=== PATIENT | female | born 1955 | race Caucasian/White ===

== ENCOUNTER 2020-09-26 06:42 | Observation (INO) | payer OTHER ==
--- OUTSIDE RECORDS SUMMARY | 2020-09-26 06:47 | XMS REPORT | Continuity of Care Document ---
:1955 Author Organization [facility] t Address [address] [place] [address] Care Team Providers Name Role Phone Anai AMBROCIO Primary Care Physician [phone] [place] Attending Clinician Unavailable Dulce AMBROCIO Attending Clinician Unavailable SCARLET Attending Clinician Unavailable Jean CEDEÑO Attending Clinician Unavailable SCARLET Admitting Clinician Unavailable Payers Payer Name Policy Type Policy Number Effective Date Expiration Date Santhosh Beltran Plus NA 2017 [facility] - 00:00:00 [facility] Problems Condition Condition Condition Status Onset Resolution Last Treating Co mments Source Name Details Category Date Date Treatment Clinician Date EPISTAXIS Diagnosis Active 2012-01-12 Memoria 01-11 12:05:00 l 00:00: [place] EPISTAXIS 00 Active 01/12/2012 [place] Chest pain Problem Active [facility] Dyspnea Problem Active [facility] Chronic Problem Active 2013-12-17 Chris carlos pain 02:49:54 l disorder Chronic Alessandra nn pain disorder Active Problem 12/17/2013 [facility] Primary BMI less Problem Active 2013-12-17 Mem oria than 02:49:54 l 19,adult BMI less Herm angel than 19,adult Active Problem 12/17/2013 [facility] Primary Nausea and Problem Active 2013-12-17 M emoria vomiting 02:49:54 l Nausea [place] and vomiting Active Problem 12/17/2013 [facility] Primary Depression Problem Active 2013-12-17 M emoria 02:49:54 l Andrea Depression Active Problem 12/17/2013 [facility] Primary Underweigh Problem Active 2013-12-17 M emoria t 02:49:54 l Andrea Underweigh t Active Problem 12/17/2013 [facility] Primary Weight Problem Active 2013-12-17 Memor ia loss, 02:49:54 l non-intent Weight Herm angel ional loss, non-intent ional Active Problem 12/17/2013 [facility] Primary Shortness Problem Active 2013-12-17 Me moria of breath 02:49:54 l [place] Shortness of breath Active Problem 12/17/2013 [facility] Primary Chest pain Problem Active 2013-12-17 M emoria 02:49:54 l Chest [place] pain Active Problem 12/17/2013 [facility] Primary Allergies, Adverse Reactions, Alerts Allergy Allergy Status Severity Reaction(s) Onset Inactive Treating Comm ents Source Name Type Date Date Clinician No Known DA Active U [facility] Allergie 7-24 Clear s 00:00: Betancourt 00 [facility] No Known DA Active U [facility] Allergie 4-24 Clear s 00:00: Betancourt 00 [facility] N.K.D.A. N.K.D.A. Active Info Not Chris carlos Available 6-30 l 00:00: [place] 00 Keflex Keflex Active Memoria 1-12 l 06:00: Andrea 00 Social History Social Habit Start Date Stop Date Quantity Comments Source SexualHistory: 2013-10-25 2013-10-25 [facility] 00:00:00 00:00:00 Sex Assigned At [address] [facility] Medications Ordered Filled Start Stop Current Ordering Indication Dosage Frequency Signature Comments Components Source Medication Medication Date Date Medication? Clinician (SIG) Name Name Loratadine Loratadine 2019-0 Yes [address] [facility] 3-20 [facility] - 06:12: Patient [address] [place] [address] Benzonatate Benzonatate 2019-0 2020- No [address] [facility] (Tessalon (Tessalon 3-20 04-29 Times A L ukes - Perle) 100 Perle) 100 06:12: 00:00 Day as Patient Mg CAPSULE Mg CAPSULE 00 :00 needed for s [facility] Gufenesin Guaifenesin 2019-0 2020- No [address] [facility] /Dextrometh /Dextrometh 3-20 04-29 Hours [facility] - orphan orphan 06:12: 00:00 Patient (Mucinex Dm (Mucinex Dm 00 :00 s Er 600-30 Er 600-30 Medic al Mg Tablet) Mg Tablet) Mendel ter 1 Each 1 Each TAB.ER.12H TAB.ER.12H Clopidogrel 2013-0 Yes Regina 1 tablet Memoria Bisulfate 7-01 Will l 00:00: Albuterol 2013-0 Yes Regina 2 puffs as Memoria Sulfate HFA 6-30 Will needed l 00:00: Nitroglycer 2013-0 Yes Regina 1 tablet Memoria in 6-30 Will under the l 00:00: tongue and allow to dissolve as needed Benzonatate 2013-0 Yes Regina 1 capsule Memoria 6-16 Will as needed l 00:00: Amoxicillin 2013-0 Yes Regina 1 tablet Memoria 6-16 Will l 00:00: 00 Fluoxetine 2013-0 Yes Regina 1 capsule Memoria HCl 6-06 Will in the l 00:00: morning Hydrocodone 2013-0 Yes Regina 1 tablet Memoria -Acetaminop 6-06 Will as needed l hen 00:00: Megestrol 2013-0 Yes Regina 5 ml Memori a Acetate 6-06 Will l 00:00: 00 Promethazin 2013-0 Yes Regina 1 tablet Memoria e HCl 5-29 Will l 00:00: 00 Fluoxetine 2013-0 Yes Regina 1 capsule Memoria HCl 5-28 Will in the l 00:00: morning tramadol 2013-0 Yes Regina 1po Memoria 5-28 Will l 00:00: Quetiapine 2013-0 Yes Regina 1 tablet M emoria Fumarate 5-28 Will at bedtime l 00:00: Andrea 00 Milnacipran Yes Regina 2 tablets Memoria HCl 5-28 Will l 00:00: Citalopram Yes Regina 1 tablet M emoria Hydrobromid 5-28 Will l e 00:00: Naproxen Yes Regina as Memoria Sodium 5-28 Will directed l 00:00: Meloxicam Yes Regina 1 tablet Me moria 5-28 Will l 00:00: Ondansetron Yes Regina as Chris carlos HCl 5-28 Will directed l 00:00: Tizanidine Yes Regina 1 tablet M emoria HCl 5-28 Iwll as needed l 00:00: Fluoxetine Yes Regina 1 capsule Memoria HCl 5-05 Will in the l 00:00: morning Ativan No 1 mg, Memoria 01-11 Lalit Route: IM, l 18:41: ONCE, Dosing Weight 42.727, kg, Priority: STAT, Start date: 01/12/12 13:41:00, Stop date: 01/12/12 13:41:00 Xanax 0.25 No 0.25 mg, Memoria mg oral 01-11 Route: PO, l tablet 18:32: Drug form: Alessandra TAB, ONCE, Dosing Weight 42.727, kg, Priority: STAT, Start date: 01/12/12 13:32:00, Stop date: 01/12/12 13:32:00 Alprazolam Alprazolam Yes Every [address] [facility] [facility] (Xanax) (Xanax) Hours for Luke s - 0.25 Mg 0.25 Mg Anxiety Patien t TABLET TABLET [facility] Aspirin Aspirin Yes Daily [facility] (Aspir 81) (Aspir 81) Jeffry es - 81 Mg 81 Mg Patient TABLET. TABLET. [facility] Duloxetine Duloxetine Yes [address] Hcl Hcl [facility] - (Cymbalta) (Cymbalta) Pat ient 30 Mg 30 Mg s CAPSULE. CAPSULE. [facility] Famotidine Famotidine Yes [address] [facility] (Pepcid) 20 (Pepcid) 20 Day as [facility] - Mg TABLET Mg TABLET needed for Patient [facility] Gabapentin Gabapentin Yes [address] [facility] for Pain [facility] - Patient [facility] Losartan Losartan Yes [address] Potassium Potassium [facility] - Patient [facility] Mirtazapine Mirtazapine Yes [address] [facility] [facility] - Patient s [facility] Trazodone Trazodone Yes [address] [facility] - Depression Patient [facility] Ferrous Ferrous 2019- No [facility] Sulfate Sulfate 08-24 [facility] - 00:00 Patient :00 [facility] Pantoprazol Pantoprazol 2019- No [facility] Sodium e Sodium 08-24 [facility] - (Protonix) (Protonix) 00:00 Pa tient 40 Mg 40 Mg :00 s TABLET. TABLET. [facility] Buspirone Buspirone 2018- No [address] [facility] Hcl Hcl 07-16 Day [facility] - 00:00 Patient :00 [facility] Cyproheptad Cyproheptad 2019- No 4 1-[address] ine Hcl ine Hcl 07-16 [facility] - 00:00 Patient :00 [facility] Zolpidem Zolpidem 2018- No [address] Tartrate Tartrate 07-16 [facility] - (Ambien) 10 (Ambien) 10 00:00 Patient Mg TABLET Mg TABLET :00 [facility] Levofloxaci Levofloxaci 2014- No [facility] n 11-22 [facility] - (Levaquin) (Levaquin) 00:00 Pa tient 500 Mg 500 Mg :00 s TABLET TABLET [facility] Vancomycin Vancomycin 2011- No [facility] 01-06 [facility] - 00:00 Patient :00 [facility] Vital Signs Vital Name Observation Time Observation Value Comments Source Body Temperature 2019-08-27 12:00:00 96.6 [degF] [facility] Weight 2019-08-27 06:28:00 141.40 [lb_av] [facility] BMI (Body Mass Index) 2019-08-27 06:28:00 28.6 kg/m2 [facility] Weight 2013-10-25 19:00:00 [facility] [place] Height 2013-10-25 19:00:00 [facility] Temperature Oral (F) 2013-10-25 19:00:00 98.6 F [facility] [place] Heart Rate 2013-10-25 19:00:00 [facility] [place] Diastolic (mm Hg) 2013-10-25 19:00:00 Mem orial Andrea Systolic (mm Hg) 2013-10-25 19:00:00 Chris rial [place] Weight 2013-10-01 14:15:00 [facility] [place] Height 2013-10-01 14:15:00 [facility] Temperature Oral (F) 2013-10-01 14:15:00 98.6 F [facility] [place] Heart Rate 2013-10-01 14:15:00 [facility] Diastolic (mm Hg) 2013-10-01 14:15:00 Mem orial Andrea Systolic (mm Hg) 2013-10-01 14:15:00 Chris rial [place] Weight 2013-09-22 18:00:00 [facility] [place] Height 2013-09-22 18:00:00 [facility] Temperature Oral (F) 2013-09-22 18:00:00 98.4 F [facility] Heart Rate 2013-09-22 18:00:00 [facility] Diastolic (mm Hg) 2013-09-22 18:00:00 Mem orial Andrea Systolic (mm Hg) 2013-09-22 18:00:00 Chris rial [place] Weight 2012-01-12 16:23:00 [facility] Height 2012-01-12 16:23:00 149.86 cm [facility] Procedures Procedure Date / Time Performed Performing Clinician [facility] e Computed tomography of 2019-08-25 00:00:[facility] Patients [facility] Plan of Care Planned Activity Planned Date Details Comments Source Instructions Chest Pain - Chest Wall [facility] Instructions Dyspnea [facility] Encounters Start End Encounter Admission Attending Care Care Encounter Source Date/Time Date/Time Type Type Clinicians Facility Department ID 2020-09-02 [id number] [place] 03[facility]57[facility]11 [facility] 2019-08-25 2019-08-27 Discharged 1 [id number] 15:40:00 13:36:00 Inpatient BESSY Patients 27 [place] es - (obs) [facility] 2019-07-14 2019-07-16 Discharged [address] [facility] [id number] 16:25:00 10:50:00 Inpatient BESSY Patients 19 [place] es - (obs) [facility] 2018-07-16 2018-07-16 Departed [facility] [id number] 11:44:00 15:48:00 Emergency 96 Luke s - Room Patient [facility] 2017-11-22 2017-11-22 Departed 1 DAVIDSON [facility] [id number] 15:48:00 20:25:00 Emergency LREOY 73 Luke s - Room Patient [facility] 2013-11-23 2013-11-23 Outpatient [facility] [id number] [facility]inic 09:08:00 09:08:00 [facility] Primary alWork s Primary Care Care 2013-10-25 2013-10-25 Outpatient [facility] [id number] [facility]Clinic 14:00:00 14:00:00 [facility] Primary alWork s Primary Care Care 2013-10-11 2013-10-11 Outpatient [facility] [id number] eClinic 11:08:00 11:08:00 [facility] Primary alWork s Primary Care Care 2013-10-01 2013-10-01 Outpatient [facility] [id number] eClinic 09:15:00 09:15:00 [facility] Primary alWork s Primary Care Care 2013-09-23 2013-09-23 Outpatient [facility] [id number] eClinic 10:01:00 10:01:00 [facility] Primary alWork s Primary Care Care 2013-09-22 2013-09-22 Outpatient [facility] [id number] [facility]Clinic 13:00:00 13:00:00 [facility] Primary alWork s Primary Care Care Results Test Description Test Time Test Comments Results Result Comments Source STREPTOCOCCUS PCR SCREEN 2020-02-04 07:55:00 Test Item Value Reference Range Interpretation Comme nts STREPTOCOCCUS DYSGALACTIAE (test code = STREPGC) NEGATIVE FOR G/C N EGATIVE STREPA MOLECULAR (test code = STREPAMOL) NEGATIVE FOR GRP A NEGATIV E - XR CHEST 1 [id number] 20:50:00 Name: HAYLEY LI [facility] : 1955 Age/S:65 /F [address] [facility] Unit#:[id number] Loc: [place], [place] [address] Phys: Luis A Mcarthur MD Dis Date: PHONE #: [phone] Status: REG ER FAX #: [phone] Exam Date: 02/03/2020 Reason: Cough EXAMS: CPT CODE:[id number] XR CHEST 1 V [id number] EXAM: Chest X-ray, 1 view; CLINICAL HISTORY: Cough and sore throat, shortness of breath; FINDINGS: The lungs are clear, no infiltrates, no edema; no effusions; no pneumothorax;normal cardiomediastinal silhouette. Status post anterior fusion of the lower cervical spine. IMPRESSION: Normal chest x-ray. Location code: at 2049 Reported and signed by: Woody Mccormick M.D. CC: Luis A Mcarthur MD; Morgan Barrios MD Technologist: URVASHI ESPINOSA RT(R),RDMS,CT Trnsct Data: 02/03/2020 (2049) [email or web address] Orig Print D/T: S: 02/03/2020 (2052) PAGE 1 Signed ReportURINALYSIS [id number] 20:26:00 Test Item Value Reference Range Interpretation Comments UA COLOR (test code = LIGHT YELLOW YELLOW COLU) UA APPEARANCE (test code CLEAR CLEAR = APPU) UA GLUCOSE DIPSTICK (test norm mg/dL NEGATIVE code = DGLUU) UA BILIRUBIN DIPSTICK NEGATIVE mg/dL NEGATIVE (test code = BILU) UA KETONE DIPSTICK (test neg mg/dL NEGATIVE code = KETU) UA SPECIFIC GRAVITY (test 1.010 1.001-1.035 code = SGU) UA BLOOD DIPSTICK (test neg Óscar/uL NEGATIVE code = SAGAR) UA PH DIPSTICK (test code 8.0 5.0-8.0 = FLORA) UA PROTEIN DIPSTICK (test neg mg/dL Neg-15 code = PROU) UA UROBILINIOGEN DIPSTICK norm mg/dL 0.0-0.2 (test code = URO) UA NITRITE DIPSTICK (test NEGATIVE NEGATIVE code = MAGGIE) UA LEUKOCYTE ESTERASE 25 Bobby/uL (Trace) uL NEGATIVE A DIPSTICK (test code = LEUU) UA WBC (test code = WBCU) 0-5 per HPF 0-5 UA RBC (test code = RBCU) NONE SEEN per HPF 0-5 UA EPITHELIAL CELLS (test Few (2-5/hpf) per Few code = EPIU) HPF UA BACTERIA (test code = FEW per HPF NONE BACU) Urine Source? Clean CatchURINALYSIS [id number] 20:23:00 Test Item Value Reference Range Interpretation Comments UA COLOR (test code = LIGHT YELLOW YELLOW COLU) UA APPEARANCE (test code CLEAR CLEAR = APPU) UA GLUCOSE DIPSTICK (test norm mg/dL NEGATIVE code = DGLUU) UA BILIRUBIN DIPSTICK NEGATIVE mg/dL NEGATIVE (test code = BILU) UA KETONE DIPSTICK (test neg mg/dL NEGATIVE code = KETU) UA SPECIFIC GRAVITY (test 1.010 1.001-1.035 code = SGU) UA BLOOD DIPSTICK (test neg Óscar/uL NEGATIVE code = SAGAR) UA PH DIPSTICK (test code 8.0 5.0-8.0 = FLORA) UA PROTEIN DIPSTICK (test neg mg/dL Neg-15 code = PROU) UA UROBILINIOGEN DIPSTICK norm mg/dL 0.0-0.2 (test code = URO) UA NITRITE DIPSTICK (test NEGATIVE NEGATIVE code = MAGGIE) UA LEUKOCYTE ESTERASE 25 Bobby/uL (Trace) uL NEGATIVE A DIPSTICK (test code = LEUU) UA WBC (test code = WBCU) per HPF 0-5 UA RBC (test code = RBCU) per HPF 0-5 UA EPITHELIAL CELLS (test per HPF Few code = EPIU) UA BACTERIA (test code = per HPF NONE BACU) Urine Source? Clean CatchNovel Coronavirus 2019 [id number] 08:01:00 Test Item Value Reference Range Interpretation Comments Novel Coronavirus 2019 nCoV (test NEGATIVE code = COVID19) Does patient have the clinical criteria consistent with COVID-19? YIs the patient going to be discharged home? Y- CT ABD PELVIS [id number] 12:27:00 [facility] 1955 Age/S: 64 / F [facility] Unit #: [id number] Loc: [place] [address] Phys: Jayme Kimball MD Acct: [id number] Dis Date: Status: REG ER PHONE #: [phone] Exam Date: 11/23/2019 1205 FAX #: [phone] Reason: upper abdominal discomfort and distension EXAMS: CPTCODE: [id number] CT ABD PELVIS W/CONT [id number] REASON FOR EXAM: upper abdominal discomfort and distension EXAM ORDER DATE: 11/23/2019 11:03 AM Ordering M.DMiko: Jayme Kimball MD PROCEDURE: Axial CT images were acquired through the abdomen/pelvis at 5 mm intervals. Sagittal and coronal reformatted images were generated. Automated exposure control was utilized for this reduction. Phasesof contrast: venous and delayed COMPARISON: CT of the abdomen and pelvis August 22, 2018 FINDINGS: Visualized thorax: Normal Hepatobiliary system: Prior cholecystectomy with prominence of the common bile duct. Hepatic parenchyma is within normal limits Pancreas: Normal Spleen: Normal Adrenal glands: Normal Genitourinary system: Prior hysterectomy. Otherwise normal Gastrointestinal tract and appendix: Mild diverticulosis of the sigmoid colon without diverticulitis. Stomach and small bowel are within normal limits Abdominal vascular structures:Normal Peritoneum and retroperitoneum: No free fluid or free air. No omental ormesenteric masses. No abnormal lymph nodes. Musculoskeletal structures and abdominal wall: Disc degeneration and facet degeneration is seen at L5-S1 IMPRESSION: No acute intra-abdominal process PAGE 1 Signed Report (CONTINUED) Name: HAYLEY LI [facility] : 1955 Age/S: 64 / F [facility] Unit #: [id number] Loc: [place] [address] Phys: Jayme Kimball MD Acct: [id number] Dis Date: Status: REG ER PHONE #: [phone] Exam Date: 11/23/2019 1205 FAX #: [phone] Reason: upper abdominal discomfort and distension EXAMS: CPT CODE: [id number] CT ABD PELVIS W/CONT [id number] <Continued> Location: [facility] Electronically Signed by Fish Chaudhry 11/23/2019 at 1227 Reported and signed by: Fish Abbott MD CC: Morgan Huerta MD; Jayme Kimball MD Technologist:Melinda Fuentes CTDI: DLP: Trnscb Date/Time: 11/23/2019 (1227) [email or web address] Orig Print D/T: S: 11/23/2019 (4528) PAGE 2 Signed ReportURINALYSIS [id number] 11:41:00 Test Item Value Reference Range Interpretation Comments UA COLOR (test code = YELLOW YELLOW COLU) UA APPEARANCE (test code CLEAR CLEAR = APPU) UA GLUCOSE DIPSTICK (test norm mg/dL NEGATIVE code = DGLUU) UA BILIRUBIN DIPSTICK NEGATIVE mg/dL NEGATIVE (test code = BILU) UA KETONE DIPSTICK (test neg mg/dL NEGATIVE code = KETU) UA SPECIFIC GRAVITY (test 1.015 1.001-1.035 code = SGU) UA BLOOD DIPSTICK (test neg Óscar/uL NEGATIVE code = SAGAR) UA PH DIPSTICK (test code 6.5 5.0-8.0 = FLORA) UA PROTEIN DIPSTICK (test neg mg/dL Neg-15 code = PROU) UA UROBILINIOGEN DIPSTICK norm mg/dL 0.0-0.2 (test code = URO) UA NITRITE DIPSTICK (test NEGATIVE NEGATIVE code = MAGGIE) UA LEUKOCYTE ESTERASE 500 Bobby/uL (3+) uL NEGATIVE A DIPSTICK (test code = LEUU) UA WBC (test code = WBCU) 3-5 per HPF 0-5 UA RBC (test code = RBCU) 0-3 per HPF 0-5 UA EPITHELIAL CELLS (test Few (2-5/hpf) per Few code = EPIU) HPF UA BACTERIA (test code = MODERATE per HPF NONE A BACU) Urine Source? Clean CatchBASIC METABOLIC [id number] 11:31:00 Test Item Value Reference Range Interpretation Comments SODIUM (test code = 144 mmol/L 136-145 N NA) POTASSIUM (test code = 3.7 mmol/L 3.5-5.1 N K) CHLORIDE (test code = 109 mmol/L 101-109 N CL) CARBON DIOXIDE (test 27.3 mmol/L 21-32 N code = CO2) ANION GAP (test code = 11 mmol/L 10-20 N GAP) GLUCOSE (test code = 95 mg/dL 74-106 N GLU) BLOOD UREA NITROGEN 22 mg/dL 3-21 H (test code = BUN) GLOMERULAR FILTRATION > 60 mL/min >=60 Estima yennifer GFR by RATE (test code = GFR) using Modified MDRD formula.Chronic kidney disease is defined as [facility] er kidney damageor GFR <60 mL/min/1.73 m2 for >3 months. CREATININE (test code 0.72 mg/dL 0.55-1.3 N = CREAT) BUN/CREATININE RATIO 30.6 10-20 H (test code = BUN/CREA) CALCIUM (test code = 8.0 mg/dL 8.4-10.2 L CA) HEPATIC FUNCTION [id number] 11:31:00 Test Item Value Reference Range Interpretation Comments TOTAL PROTEIN (test 6.9 g/dL 6.5-8.4 N code = PROT) ALBUMIN (test code = 3.2 g/dL 3.4-4.8 L ALB) GLOBULIN (test code = 3.7 G/DL 1-10 N GLOB) ALBUMIN/GLOBULIN RATIO 0.86 RATIO 0.75-1.50 N (test code = A/G) BILIRUBIN TOTAL (test 0.30 mg/dL 0.0-1.0 N code = BILT) BILIRUBIN DIRECT (test 0.00 mg/dL 0.0-0.30 N code = BILD) SGOT/AST (test code = 24 U/L 6-32 N AST) SGPT/ALT (test code = 29 U/L 12-78 N Note: Change in ALT) REFERENCE RANGE due to new reagent method. ALKALINE PHOSPHATASE 159 U/L 38-126 H TOTAL (test code = ALKP) [id number] 11:31:00 Test Item Value Reference Range Interpretation Comments LIPASE (test code = LIP) 223 U/L 128-270 N [id number] 11:31:00 Test Item Value Reference Range Interpretation Comments TROPONIN-I (test code = TROPI) <0.015 ng/mL 0.00-0.056 N URINALYSIS [id number] 11:26:00 Test Item Value Reference Range Interpretation Comments UA COLOR (test code = YELLOW YELLOW COLU) UA APPEARANCE (test code = CLEAR CLEAR APPU) UA GLUCOSE DIPSTICK (test norm mg/dL NEGATIVE code = DGLUU) UA BILIRUBIN DIPSTICK NEGATIVE mg/dL NEGATIVE (test code = BILU) UA KETONE DIPSTICK (test neg mg/dL NEGATIVE code = KETU) UA SPECIFIC GRAVITY (test 1.015 1.001-1.035 code = SGU) UA BLOOD DIPSTICK (test neg Óscar/uL NEGATIVE code = SAGAR) UA PH DIPSTICK (test code 6.5 5.0-8.0 = FLORA) UA PROTEIN DIPSTICK (test neg mg/dL Neg-15 code = PROU) UA UROBILINIOGEN DIPSTICK norm mg/dL 0.0-0.2 (test code = URO) UA NITRITE DIPSTICK (test NEGATIVE NEGATIVE code = MAGGIE) UA LEUKOCYTE ESTERASE 500 Bobby/uL (3+) uL NEGATIVE A DIPSTICK (test code = LEUU) UA WBC (test code = WBCU) per HPF 0-5 UA RBC (test code = RBCU) per HPF 0-5 UA EPITHELIAL CELLS (test per HPF Few code = EPIU) UA BACTERIA (test code = per HPF NONE BACU) Urine Source? Clean CatchCBC W/O [id number] 11:13:00 Test Item Value Reference Range Interpretation Comments WHITE BLOOD CELL (test code = 7.0 K/mm3 4.5-12.5 N WBC) RED BLOOD CELL (test code = 3.85 mill/mm3 3.7-5.2 N RBC) HEMOGLOBIN (test code = HGB) 11.9 gram/dL 11.5-15.5 N HEMATOCRIT (test code = HCT) 35.5 % 36.0-46.0 L MEAN CELL VOLUME (test code = 92.2 fL 80-98 N MCV) MEAN CELL HGB (test code = MCH) 30.9 picogram 27.0-33.0 N MEAN CELL HGB CONCETRATION 33.5 gram/dL 33.0-36.0 N (test code = MCHC) RED CELL DISTRIBUTION WIDTH 12.7 % 11.6-16.2 N (test code = RDW) RED CELL DISTRIBUTION WIDTH SD 43.1 fL 37.0-51.0 N (test code = RDW-SD) PLATELET COUNT (test code = 227 K/mm3 150-450 N PLT) MEAN PLATELET VOLUME (test code 9.5 fL 6.7-11.0 N = MPV) [id number] 17:51:00 Test Item Value Reference Range Interpretation Comments TROPONIN-I (test code = TROPI) <0.015 ng/mL 0-0.045 N BASIC METABOLIC [id number] 17:50:00 Test Item Value Reference Range Interpretation Comments SODIUM (test code = 146 mmol/L 136-145 H NA) POTASSIUM (test code = 4.1 mmol/L 3.5-5.1 N K) CHLORIDE (test code = 111 mmol/L 101-109 H CL) CARBON DIOXIDE (test 28.3 mmol/L 21-32 N code = CO2) ANION GAP (test code = 11 mmol/L 10-20 N GAP) GLUCOSE (test code = 101 mg/dL 74-106 N GLU) BLOOD UREA NITROGEN 26 mg/dL 3-21 H (test code = BUN) GLOMERULAR FILTRATION > 60 mL/min >=60 Estima yennifer GFR by RATE (test code = GFR) using Modified MDRD formula.Chronic kidney disease is defined as [facility] kidney damageor GFR <60 mL/min/1.73 m2 for >3 months. CREATININE (test code 0.71 mg/dL 0.55-1.3 N = CREAT) BUN/CREATININE RATIO 36.6 10-20 H (test code = BUN/CREA) CALCIUM (test code = 7.9 mg/dL 8.4-10.2 L CA) HEPATIC FUNCTION [id number] 17:50:00 Test Item Value Reference Range Interpretation Comments TOTAL PROTEIN (test 6.4 g/dL 6.5-8.4 L code = PROT) ALBUMIN (test code = 3.0 g/dL 3.4-4.8 L ALB) GLOBULIN (test code = 3.4 G/DL 1-10 N GLOB) ALBUMIN/GLOBULIN RATIO 0.88 RATIO 0.75-1.50 N (test code = A/G) BILIRUBIN TOTAL (test 0.20 mg/dL 0.0-1.0 N code = BILT) BILIRUBIN DIRECT (test 0.00 mg/dL 0.0-0.30 N code = BILD) SGOT/AST (test code = 26 U/L 6-32 N AST) SGPT/ALT (test code = 27 U/L 12-78 N Note: Change in ALT) REFERENCE RANGE due to new reagent method. ALKALINE PHOSPHATASE 118 U/L 38-126 N TOTAL (test code = ALKP) [id number] 17:50:00 Test Item Value Reference Range Interpretation Comments LIPASE (test code = LIP) 155 U/L 128-270 N URINALYSIS [id number] 17:45:00 Test Item Value Reference Range Interpretation Comments UA COLOR (test code = YELLOW YELLOW COLU) UA APPEARANCE (test code SLIGHT CLOUDY CLEAR A = APPU) UA GLUCOSE DIPSTICK (test norm mg/dL NEGATIVE code = DGLUU) UA BILIRUBIN DIPSTICK NEGATIVE mg/dL NEGATIVE (test code = BILU) UA KETONE DIPSTICK (test neg mg/dL NEGATIVE code = KETU) UA SPECIFIC GRAVITY (test 1.005 1.001-1.035 code = SGU) UA BLOOD DIPSTICK (test neg Óscar/uL NEGATIVE code = SAGAR) UA PH DIPSTICK (test code 8.0 5.0-8.0 = FLORA) UA PROTEIN DIPSTICK (test neg mg/dL Neg-15 code = PROU) UA UROBILINIOGEN DIPSTICK norm mg/dL 0.0-0.2 (test code = URO) UA NITRITE DIPSTICK (test NEGATIVE NEGATIVE code = MAGGIE) UA LEUKOCYTE ESTERASE 500 Bobby/uL (3+) uL NEGATIVE A DIPSTICK (test code = LEUU) UA WBC (test code = WBCU) 40-50 per HPF 0-5 A UA RBC (test code = RBCU) NONE SEEN per HPF 0-5 UA EPITHELIAL CELLS (test Rare (0-1/hpf) per Few code = EPIU) HPF UA BACTERIA (test code = TRACE per HPF NONE BACU) UA MUCUS (test code = FEW per LPF NONE-FEW MUCU) Urine Source? Clean CatchURINALYSIS [id number] 17:39:00 Test Item Value Reference Range Interpretation Comments UA COLOR (test code = YELLOW YELLOW COLU) UA APPEARANCE (test code = SLIGHT CLOUDY CLEAR A APPU) UA GLUCOSE DIPSTICK (test norm mg/dL NEGATIVE code = DGLUU) UA BILIRUBIN DIPSTICK NEGATIVE mg/dL NEGATIVE (test code = BILU) UA KETONE DIPSTICK (test neg mg/dL NEGATIVE code = KETU) UA SPECIFIC GRAVITY (test 1.005 1.001-1.035 code = SGU) UA BLOOD DIPSTICK (test neg Óscar/uL NEGATIVE code = SAGAR) UA PH DIPSTICK (test code 8.0 5.0-8.0 = FLORA) UA PROTEIN DIPSTICK (test neg mg/dL Neg-15 code = PROU) UA UROBILINIOGEN DIPSTICK norm mg/dL 0.0-0.2 (test code = URO) UA NITRITE DIPSTICK (test NEGATIVE NEGATIVE code = MAGGIE) UA LEUKOCYTE ESTERASE 500 Bobby/uL (3+) uL NEGATIVE A DIPSTICK (test code = LEUU) UA WBC (test code = WBCU) per HPF 0-5 UA RBC (test code = RBCU) per HPF 0-5 UA EPITHELIAL CELLS (test per HPF Few code = EPIU) UA BACTERIA (test code = per HPF NONE BACU) Urine Source? Clean CatchB-TYPE NATRIURETIC [id number] 17:39:00 Test Item Value Reference Range Interpretation Comments B-TYPE NATRIURETIC PEPTIDE (test 41.0 pg/mL 0-100 N code = BNP) - XR ABDOMEN [id number] 17:39:00 Name: HAYLEY LI [facility] : 1955 Age/S:64 /F [address] [facility] Unit#:[id number] Loc: [place] [address] Phys: Jayme Kimball MD Dis Date: PHONE #: [phone] Status: REG ER FAX #: [phone] Exam Date: 11/19/2019 Reason: diarrhea EXAMS: CPT CODE:[id number] XR ABDOMEN 2V 96414 HISTORY: Abdominal pain and diarrhea. COMPARISON: Chest x-ray from April 10, [address] scan from August 22, 2018. Location: [facility]. Single view chest: No acute infiltrates, effusion or congestion is noted. Lung scarring. The cardiac and mediastinal silhoue tte are within normal limits. IMPRESSION: No acute infiltrates, effusion or congestion. 2 view abdomen: No free air. No bowel obstruction. Patient is post cholecystectomy. Scattered fecal material. No pathologic constipation is. DJD of the lower lumbar spine. IMPRESSION: No free air or obstruction. at 1739 Reported and signed by: Reilly Khan M.D. CC: Jayme Kimball MD; Alphonse Rg Technologist: RAYO REDDING, RT(R),CT Trnscrpt Data: 11/19/2019 (1731) t.SDR.TH4 Orig Print D/T: S: 11/19/2019 (1352) PAGE 1 Signed Report- XR CHEST 1 [id number] 17:39:00 Name: HAYLEY LI [facility] : 1955 Age/S:64 /F [address] [facility] Unit#:[id number] Loc: [place] [address] Phys: Jayme Kimball MD Dis Date: PHONE #: [phone] Status: REG ER FAX #: [phone] Exam Date: 11/19/2019 Reason: sob EXAMS: CPT CODE:[id number] XR CHEST 1 V 00854 HISTORY: Abdominal pain and diarrhea. COMPARISON: Chest x-ray from April 10, [address] scan from August 22, 2018. Location: [facility]. Single view chest: No acute infiltrates, effusion or congestion is noted. Lung scarring. The cardiac and mediastinal silhouette are within normal limits. IMPRESSION: No acute infiltrates, effusion or congestion. 2 view abdomen: No free air. No bowel obs truction. Patient is post cholecystectomy. Scattered fecal material. No pathologic constipation is. DJD of the lower lumbar spine. IMPRESSION: No free air or obstruction. at 173 Reported and signed by: Reilly Khan M.D. CC: Jayme Kimball MD; Alphonse Rg Technologist: RAYO REDDING, RT(R),CT Trnscrpt Data: 11/19/2019 (9373) t.FRANSICO.TH4 Orig Print D/T: S: 11/19/2019 (2347) PAGE 1 Signed ReportBASIC METABOLIC [id number] 17:36:00 Test Item Value Reference Range Interpretation Comments SODIUM (test code = 146 mmol/L 136-145 H NA) POTASSIUM (test code = 4.1 mmol/L 3.5-5.1 N K) CHLORIDE (test code = 111 mmol/L 101-109 H CL) CARBON DIOXIDE (test 28.3 mmol/L 21-32 N code = CO2) ANION GAP (test code = 11 mmol/L 10-20 N GAP) GLUCOSE (test code = 101 mg/dL 74-106 N GLU) BLOOD UREA NITROGEN 26 mg/dL 3-21 H (test code = BUN) GLOMERULAR FILTRATION > 60 mL/min >=60 Estima yennifer GFR by RATE (test code = GFR) using Modified MDRD formula.Chronic kidney disease is defined as [facility] er kidney damageor GFR <60 mL/min/1.73 m2 for >3 months. CREATININE (test code 0.71 mg/dL 0.55-1.3 N = CREAT) BUN/CREATININE RATIO 36.6 10-20 H (test code = BUN/CREA) CALCIUM (test code = 7.9 mg/dL 8.4-10.2 L CA) HEPATIC FUNCTION [id number] 17:36:00 Test Item Value Reference Range Interpretation Comments TOTAL PROTEIN (test code = PROT) gram/dL 6.4-8.2 ALBUMIN (test code = ALB) g/dL 3.4-5.0 GLOBULIN (test code = GLOB) g/dL 2.7-4.2 ALBUMIN/GLOBULIN RATIO (test code = 0.75-1.50 A/G) BILIRUBIN TOTAL (test code = BILT) mg/dL 0.2-1.2 BILIRUBIN DIRECT (test code = BILD) mg/dL 0.0-0.20 SGOT/AST (test code = AST) IUnit/L 15-37 SGPT/ALT (test code = ALT) U/L 10-69 ALKALINE PHOSPHATASE TOTAL (test IUnit/L 45-117 code = ALKP) [id number] 17:36:00 Test Item Value Reference Range Interpretation Comments LIPASE (test code = LIP) Unit/L 144-286 CBC W/O [id number] 17:23:00 Test Item Value Reference Range Interpretation Comments WHITE BLOOD CELL (test code = 9.8 K/mm3 4.5-12.5 N WBC) RED BLOOD CELL (test code = 4.02 mill/mm3 3.7-5.2 N RBC) HEMOGLOBIN (test code = HGB) 12.2 gram/dL 11.5-15.5 N HEMATOCRIT (test code = HCT) 37.6 % 36.0-46.0 N MEAN CELL VOLUME (test code = 93.5 fL 80-98 N MCV) MEAN CELL HGB (test code = MCH) 30.3 picogram 27.0-33.0 N MEAN CELL HGB CONCETRATION 32.4 gram/dL 33.0-36.0 L (test code = MCHC) RED CELL DISTRIBUTION WIDTH 12.9 % 11.6-16.2 N (test code = RDW) RED CELL DISTRIBUTION WIDTH SD 45.0 fL 37.0-51.0 N (test code = RDW-SD) PLATELET COUNT (test code = 253 K/mm3 150-450 N PLT) MEAN PLATELET VOLUME (test code 9.2 fL 6.7-11.0 N = MPV) FOOT LEFT AP [id number] 10:54:00 [place] [address] Patient Name: HAYLEY LI MR #: [id number] : 1955 Age/Sex: 64/F Req #: [id number] Adm Physician: Ordered by: LITO AMBROCIO M.D. Report #: [id number] Location: [facility] Room/Bed: Procedure: [id number] DX/FOOTLEFT AP LAT Exam Date: 09/24/19 Exam Time: 1030 REPORT STATUS: Signed EXAMINATION: FOOT LEFT AP LAT INDICATION:Toe injury COMPARISON: None FINDINGS: No acute fracture or dislocation. Alignment is anatomic. No substantial degenerative change. Soft tissues appear unremarkable. IMPRESSION: No acute osseous injury. Signed by: Rosy Mccarthy MD on 09/24/2019 10:54 AM Dictated By: ROSY MCCARTHY MD 105 Transcribed By: KEY on 09/24/19 1054 COPY TO: LITO AMBROCIO M.D.Serum or plasma sodium measurement (moles/volume)2019-08-27 05:23:00 Test Item Value Reference Range Interpretation Comments Sodium Level (test code = 2951-2) 140 136-145 [facility] potassium [facility] (moles/volume)2019-08-27 05:23:00 Test Item Value Reference Range Interpretation Comments Potassium Level (test code = 2823-3) 4.2 3.5-5.1 [facility] chloride measurement (moles/volume)2019-08-27 05:23:00 Test Item Value Reference Range Interpretation Comments Chloride Level (test code = 2075-0) 110 98-107 [facility] carbon dioxide, total measurement (moles/volume)2019-08-27 05:23:00 Test Item Value Reference Range Interpretation Comments Carbon Dioxide Level (test code = 8-9) [facility] anion [id number] 05:23:00 Test Item Value Reference Range Interpretation Comments Anion Gap (test code = 80537-9) 10.2 8-16 [facility] urea nitrogen measurement (mass/volume)2019-08-27 05:23:00 Test Item Value Reference Range Interpretation Comments Blood Urea Nitrogen (test code = 23 7- 3094-0) [facility] creatinine measurement (mass/volume)2019-08-27 05:23:00 Test Item Value Reference Range Interpretation Comments Creatinine (test code = 2160-0) 0.69 0.57-1.11 [facility] urea nitrogen/creatinine mass [id number] 05:23:00 Test Item Value Reference Range Interpretation Comments BUN/Creatinine Ratio (test code = 33 6-25 3097-3) [facility] CenterEstimated glomerular filtration rate (GFR) yuxetlquvayri1538-88-82 05:23:00 Test Item Value Reference Range Interpretation Comments Estimat Glomerular Filtration Rate > 60 >60 (test code = 300829259) Ranges were taken from the National Kidney Disease Education Program and the National Kidney Foundation literature.Reference ranges:60 or greater: Hgqotz49- 59 (for 3 consecutive months): Chronic kidneydisease 15 or less: Kidney failure [facility] CenterGlucose wqtgqyiighg6487-19-58 05:23:00 Test Item Value Reference Range Interpretation Comments Glucose Level (test code = LMN5817) 97 74-118 [facility] calcium measurement (mass/volume)2019-08-27 05:23:00 Test Item Value Reference Range Interpretation Comments Calcium Level (test code = 02515-0) 8.8 8.4-10.2 [facility] plasma creatine kinase measurement (enzymatic activity/volume)2019-08-26 13:50:00 Test Item Value Reference Range Interpretation Comments Creatine Kinase (test code = 2157-6) 55 29-168 [facility] plasma creatine kinase MB measurement (mass/volume)2019-08-26 13:50:00 Test Item Value Reference Range Interpretation Comments Creatine Kinase MB (test code = 0.80 0-5.0 86951-4) [facility] CenterTroponin I measurement by highly sensitive enzyme ddekjziassa7393-48-09 13:50:00 Test Item Value Reference Range Interpretation Comments Troponin I (test code = 65542-6) < 0.001 0-0.300 [facility] total cholesterol/cholesterol in HDL mass swepg5281-78-97 05:50:00 Test Item Value Reference Range Interpretation Comments Cholesterol/HDL Ratio (test code = 2.6 3.0-3.6 9830-1) [facility] CenterBlood leukocytes automated count (number/volume)2019-08-26 05:50:00 Test Item Value Reference Range Interpretation Comments White Blood Count (test code = 6690-2) 5.74 4.8-10.8 [facility] CenterBlood erythrocytes automated count (number/volume)2019-08-26 05:50:00 Test Item Value Reference Range Interpretation Comments Red Blood Count (test code = 789-8) 4.09 3.6-5.1 [facility] CenterBlood hemoglobin measurement (moles/volume)2019-08-26 05:50:00 Test Item Value Reference Range Interpretation Comments Hemoglobin (test code = 90297-7) 12.8 12.0-16.0 [facility] CenterAutomated blood hematocrit (volume fraction)2019-08-26 05:50:00 Test Item Value Reference Range Interpretation Comments Hematocrit (test code = 4544-3) 37.2 34.2-44.1 [facility] CenterAutomated erythrocyte mean corpuscular uqqbbg6673-28-90 05:50:00 Test Item Value Reference Range Interpretation Comments Mean Corpuscular Volume (test code = 91.0 81-99 787-2) [facility] CenterAutomated erythrocyte mean corpuscular hemoglobin (mass per erythrocyte)2019-08-26 05:50:00 Test Item Value Reference Range Interpretation Comments Mean Corpuscular Hemoglobin (test code 31.3 28-32 = 785-6) [facility] CenterAutomated erythrocyte mean corpuscular hemoglobin concentration measurement (mass/volume)2019-08-26 05:50:00 Test Item Value Reference Range Interpretation Comments Mean Corpuscular Hemoglobin Concent 34.4 31-35 (test code = 786-4) [facility] CenterRDW DmxPk-Yul7722-91-30 05:50:00 Test Item Value Reference Range Interpretation Comments Red Cell Distribution Width (test code 13.0 11.7-14.4 = 26294-1) [facility] CenterAutomated blood platelet count (count/volume)2019-08-26 05:50:00 Test Item Value Reference Range Interpretation Comments Platelet Count (test code = 777-3) 214 140-360 [facility] CenterAutomated blood segmented neutrophil count as percentage of total pifgxqdukn9883-43-71 05:50:00 Test Item Value Reference Range Interpretation Comments Neutrophils (%) (Auto) (test code = 45.9 38.7-80.0 26847-5) [facility] CenterAutomated blood lymphocyte count as percentage ot total vfutgzfpji7659-19-27 05:50:00 Test Item Value Reference Range Interpretation Comments Lymphocytes (%) (Auto) (test code = 38.9 18.0-39.1 736-9) [facility] CenterAutomated blood monocyte count as percentage of total oldyyviqlk9576-67-23 05:50:00 Test Item Value Reference Range Interpretation Comments Monocytes (%) (Auto) (test code = 10.6 4.4-11.3 5905-5) [facility] CenterAutomated blood eosinophil count as percentage of total tvpzlfqlzm4904-78-57 05:50:00 Test Item Value Reference Range Interpretation Comments Eosinophils (%) (Auto) (test code = 3.1 0.0-6.0 713-8) [facility] CenterAutomated blood basophil count as percentage of total uwazikkpho9104-73-68 05:50:00 Test Item Value Reference Range Interpretation Comments Basophils (%) (Auto) (test code = 1.2 0.0-1.0 706-2) [facility] CenterFluoroscopic procedure less than one hour veswdhnx5741-41-01 05:50:00 Test Item Value Reference Range Interpretation Comments IM GRANULOCYTES % (test code = IM 0.3 0.0-1.0 GRANULOCYTES %) [facility] CenterAutomated blood neutrophil count 2019-08-26 05:50:00 Test Item Value Reference Range Interpretation Comments Neutrophils # (Auto) (test code = 2.6 2.1-6.9 751-8) [facility] CenterBlood lymphocytes count (number/volume) 2019-08-26 05:50:00 Test Item Value Reference Range Interpretation Comments Lymphocytes # (Auto) (test code = 2.2 1.0-3.2 86137-8) [facility] CenterBlood monocytes automated count (number/volume)2019-08-26 05:50:00 Test Item Value Reference Range Interpretation Comments Monocytes # (Auto) (test code = 742-7) 0.6 0.2-0.8 [facility] CenterAutomated blood eosinophil count 2019-08-26 05:50:00 Test Item Value Reference Range Interpretation Comments Eosinophils # (Auto) (test code = 0.2 0.0-0.4 711-2) [facility] CenterAutomated blood basophil count (count/volume)2019-08-26 05:50:00 Test Item Value Reference Range Interpretation Comments Basophils # (Auto) (test code = 704-7) 0.1 0.0-0.1 [facility] CenterFluoroscopic procedure less than one hour yppdvlka6781-08-58 05:50:00 Test Item Value Reference Range Interpretation Comments Absolute Immature Granulocyte (auto 0.02 0-0.1 (test code = Absolute Immature Granulocyte (auto) [facility] total bilirubin measurement (mass/volume)2019-08-26 05:50:00 Test Item Value Reference Range Interpretation Comments Total Bilirubin (test code = 1975-2) 0.5 0.2-1.2 [facility] CenterFluoroscopic procedure less than one hour cspyjzqy3062-16-00 05:50:00 Test Item Value Reference Range Interpretation Comments Aspartate Amino Transf (AST/SGOT) (test 23 5-34 code = Aspartate Amino Transf (AST/SGOT)) [facility]erum or plasma alanine aminotransferase measurement (enzymatic activity/volume)2019-08-26 05:50:00 Test Item Value Reference Range Interpretation Comments Alanine Aminotransferase (ALT/SGPT) 14 0-55 (test code = 1742-6) [facility] Hospitalerum or plasma protein measurement (mass/volume)2019-08-26 05:50:00 Test Item Value Reference Range Interpretation Comments Total Protein (test code = 2885-2) 6.4 6.5-8.1 [facility]erum or plasma albumin measurement (mass/volume)2019-08-26 05:50:00 Test Item Value Reference Range Interpretation Comments Albumin (test code = 1751-7) 3.3 3.5-5.0 [facility] CenterPlasma globulin measurement (mass/volume) 2019-08-26 05:50:00 Test Item Value Reference Range Interpretation Comments Globulin (test code = 89184-8) 3.1 2.3-3.5 [facility]erum or plasma albumin/globulin mass jgfum5308-23-49 05:50:00 Test Item Value Reference Range Interpretation Comments Albumin/Globulin Ratio (test code = 1.1 0.8-2.0 1759-0) [facility]erum or plasma alkaline phosphatase measurement (enzymatic activity/volume)2019-08-26 05:50:00 Test Item Value Reference Range Interpretation Comments Alkaline Phosphatase (test code = 117 40-150 6768-6) [facility] Hospitalerum or plasma triglyceride measurement (mass/volume)2019-08-26 05:50:00 Test Item Value Reference Range Interpretation Comments Triglycerides Level (test code = 69 0-149 2571-8) [facility]erum or plasma cholesterol measurement (mass/volume)2019-08-26 05:50:00 Test Item Value Reference Range Interpretation Comments Cholesterol Level (test code = 2093-3) 151 0-199 Less than 200 mg/dL Low Gwvs867 - 239 mg/dL Borderline Yorz367 mg/dl and greaterHigh RiskCuero Regional Hospitalerum or plasma cholesterol in LDL measurement (mass/volume)2019-08-26 05:50:00 Test Item Value Reference Range Interpretation Comments LDL Cholesterol (test code = 2089-1) 80 60-130 [facility]erum or plasma cholesterol in HDL measurement (mass/volume)2019-08-26 05:50:00 Test Item Value Reference Range Interpretation Comments HDL Cholesterol (test code = 2085-9) 57 40-60 [facility] CenterCT CHEST [id number] 16:18:00 [facility] [address] [place] [address] Patient Name: HAYLEY LI MR #: [id number] : 1955 Age/Sex: 64/F Req #: [id number] Adm Physician: BESSY NOVAK MD Ordered by: ALEJANDRO SPENCE MD Report #: [id number] Location: [facility] Room/Bed: [place] [address] Procedure: [id number] CT/CT CHEST W Exam Date: 08/25/19 Exam Time: 1550 REPORT STATUS: Signed EXAM: CT Chest WITH contrast 08/25/2019 3:50 PM INDICATION: RIGHT CP AND SOB COMPARISON: None TECHNIQUE: Chest was scanned utilizing a multidetector helical scanner from the lung apex through the level of the adrenal glands without administration of IV contrast. Coronal and sagittal reformations were obtained. Routine protocol was performed. IV CONTRAST: 100 mL of Omnipaque 300 COMPLICATIONS: None RADIATION DOSE: Total DLP: 369.88 mGy*cm Estimated effective dose: (DLP x 0.014 x size factor) mSv CTDIvol has been reviewed. It is below the limits set by the Radiation Protocol Committee (RPC). FINDINGS: LINES/ TUBES: None. LUNGS AND AIRWAYS: 0.6 cm pulmonary nodule is seen in the left lower lobe (series 3, image 86). Subsegmental atelectasis are seen in lung bases. Airways are normal. PLEURA: The pleural spaces are clear. HEART AND MEDIASTINUM: The thyroid gland is normal. No mediastinal, hilar or axillary lymphadenopathy. The heart is normal in size.. There is no pericardial effusion. UPPER ABDOMEN: Unremarkable. BONES: There are degenerative changes in thethoracic spine. SOFT TISSUES: Unremarkable. IMPRESSION: 1. No evidence of pulmonaryembolus. 2. A 0.6 cm pulmonary nodule is seen in the left lower lobe. Recommend follow-up chest CT based on Fleischner criteria. Signed by: Bjorn Merrill MD on 08/25/2019 4:41 PM Dictated By: BJORN MERRILL MD 40 Transcribed By: KEY on 08/25/191640 COPY TO: ALEJANDRO SPENCE [facility] ([facility])2019-08-25 14:27:00 [place] [address] Patient Name: HAYLEY LI MR #: [id number] : 1955 Age/Sex: 64/F Req #: [id number] Adm Physician: Ordered by: AISHA VIERA NP Report #: [id number] Location: ER Room/Bed: Procedure: [id number] DX/CHEST SINGLE (PORTABLE) Exam Date: 08/25/19 Exam Time: 1345 REPORT STATUS: Signed EXAMINATION: CHEST SINGLE (PORTABLE) INDICATION: Chest pain COMPARISON: Chest are graft 07/15/2019 FINDINGS: LINES/TUBES:EKG leads overlie the chest. LUNGS:The lungs are well-inflated. No focal consolidation or pulmonary edema. PLEURA:No pleural effusion or pneumothorax. MEDIASTINUM:The cardiomediastinal silhouette appears normal in size and shape. BONES/SOFT TISSUES:No acute osseous injury. Cervical spine fusion hardware. ABDOMEN:No free air under the diaphragm. IMPRESSION: No focal pneumonia or pulmonary edema. Signed by: Rosy Mccarthy MD on 08/25/2019 2:27 PM Dictated By: ROSY GREENE 26 Transcribed By: KEY on 08/25/191426 COPY TO: AISHA VIERA [facility] Prothrombin time (PT) in platelet poor plasma by coagulation [id number] 13:15:00 Test Item Value Reference Range Interpretation Comments Prothrombin Time (test code = 5902-2) 12.1 11.9-14.5 [facility] CenterINR in Platelet poor plasma by Coagulation vxtxj6593-25-29 13:15:00 Test Item Value Reference Range Interpretation Comments Prothromb Time International Ratio 0.85 (test code = 6301-6) Oral Anticoagulant Therapy INR Values:1. Low Intensity Therapy 1.5 - 2.02. Moderate IntensityTherapy 2.0 - 3.03. High Intensity Therapy(1) 2.5 - 3.54. High Intensity Therapy(2) 3.0 - 4.05. Panic Value INR > 5.0[facility] CenterActivated partial thromboplastin time (aPTT) in platelet poor plasma by coagulation txene0171-76-55 13:15:00 Test Item Value Reference Range Interpretation Comments Activated Partial Thromboplast Time 30.1 23.8-35.5 (test code = 92067-0) [facility] CenterBNP Jzg-dOnp9978-14-29 13:15:00 Test Item Value Reference Range Interpretation Comments B-Type Natriuretic Peptide (test code = 56.3 0-100 28464-9) [facility] CenterUrine color mowjhguxsnaih6603-21-68 12:56:00 Test Item Value Reference Range Interpretation Comments Urine Color (test code = 5778-6) YELLOW YELLOW [facility] CenterUrine jhphtll2728-52-53 12:56:00 Test Item Value Reference Range Interpretation Comments Urine Clarity (test code = 31332-6) CLEAR CLEAR [facility]pecific gravity of Urine by Test strip 2019-08-25 12:56:00 Test Item Value Reference Range Interpretation Comments Urine Specific Orestes (test code = 1.025 1.010-1.025 5811-5) [facility] CenterUrine pH measurement by automated test bzsyp1512-31-68 12:56:00 Test Item Value Reference Range Interpretation Comments Urine pH (test code = 27954-6) 7 5-7 [facility] CenterUrine leukocyte esterase detection by zbplqntw0591-90-25 12:56:00 Test Item Value Reference Range Interpretation Comments Urine Leukocyte Esterase (test code NEGATIVE NEGATIVE = 5799-2) [facility] CenterUrine nitrite hjsqjdbcn5823-05-09 12:56:00 Test Item Value Reference Range Interpretation Comments Urine Nitrite (test code = 20852-8) NEGATIVE NEGATIVE [facility] CenterUrine protein measurement by test strip (mass/volume)2019-08-25 12:56:00 Test Item Value Reference Range Interpretation Comments Urine Protein (test code = 5804-0) NEGATIVE NEGATIVE [facility] CenterUrine glucose vyusvywvf6660-42-96 12:56:00 Test Item Value Reference Range Interpretation Comments Urine Glucose (UA) (test code = NEGATIVE NEGATIVE 2349-9) [facility] CenterUrine ketones detection by automated test varxy3419-21-23 12:56:00 Test Item Value Reference Range Interpretation Comments Urine Ketones (test code = 26315-3) NEGATIVE NEGATIVE [facility] CenterUrine urobilinogen measurement by test strip (mass/volume)2019-08-25 12:56:00 Test Item Value Reference Range Interpretation Comments Urine Urobilinogen (test code = 0.2 0.2-1 50796-7) [facility] CenterUrine total bilirubin measurement (mass/volume)2019-08-25 12:56:00 Test Item Value Reference Range Interpretation Comments Urine Bilirubin (test code = 1978-6) NEGATIVE NEGATIVE [facility] CenterUrine erythrocytes mxtnwlcym7622-46-13 12:56:00 Test Item Value Reference Range Interpretation Comments Urine Blood (test code = 55453-1) NEGATIVE NEGATIVE [facility] CenterAutomated urine sediment leukocyte count by microscopy (number/high power field)2019-08-25 12:56:00 Test Item Value Reference Range Interpretation Comments Urine WBC (test code = 5821-4) NONE 0-5 [facility] CenterErythrocytes detection in urine sediment by light qnkzsonvdm5276-51-82 12:56:00 Test Item Value Reference Range Interpretation Comments Urine RBC (test code = 11505-4) NONE 0-5 [facility] CenterBacteria detection in urine sediment by light bscgfmcewk1494-27-77 12:56:00 Test Item Value Reference Range Interpretation Comments Urine Bacteria (test code = 60646-4) NONE NONE [facility] CenterEpithelial cells detection in urine sediment by light yogpwfxgpe8127-15-57 12:56:00 Test Item Value Reference Range Interpretation Comments Urine Epithelial Cells (test code = RARE NONE 82253-1) [facility] CenterPhosphorus Jecve3825-08-97 06:36:00 Test Item Value Reference Range Interpretation Comments Phosphorus Level (test code = LMB2216) 4.3 2.3-4.7 [facility] CenterMagnesium Qslzt6441-49-99 06:36:00 Test Item Value Reference Range Interpretation Comments Magnesium Level (test code = 50496-0) 2.0 1.3-2.1 [facility] CenterPhosphorus nbvantkmnky2872 05:40:00 Test Item Value Reference Range Interpretation Comments Phosphorus Level (test code = WDG7142) 4.3 2.3-4.7 [facility] measurement (mass/volume)2019-07-16 05:40:00 Test Item Value Reference Range Interpretation Comments Magnesium Level (test code = 76130-3) 2.0 1.3-2.1 [facility] CenterInfluenza Virus Types A,B Antigen 2019-07-15 11:58:00 Test Item Value Reference Range Interpretation Comments Influenza Virus Types A,B Antigen NEGATIVE NEGATIVE (test code = 46119-0) [facility] CenterInfluenza virus A and B antigen identification by bqvrlcodfjqxnlnnlg5132-07-61 10:50:00 Test Item Value Reference Range Interpretation Comments Influenza Virus Types A,B Antigen NEGATIVE NEGATIVE (test code = 59710-9) [facility] CenterCHEST SINGLE (PORTABLE)2019-07-15 06:57:00 [facility] [address] [place] [address] Patient Name: HAYLEY LI MR #: [id number] : 1955 Age/Sex: 64/F Req #: [id number] Adm Physician: BESSY NOVAK MD Ordered by: AISHA VIERA [employer] Report #: [id number] Location: MED/SURG3 Room/Bed: [facility] Procedure: [id number] DX/CHESTSINGLE (PORTABLE) Exam Date: 07/15/19 Exam Time: 06 REPORT STATUS: Signed EXAMINATION: CHEST SINGLE (PORTABLE) INDICATION: Shortness of breath. Chest pain. COMPARISON: 07/14/2019. FINDINGS: LINES/ TUBES:None. LUNGS:Mild right basilar subsegmental atelectasis.. No focal consolidation or pulmonary edema. PLEURA:No pleural effusion or pneumothorax. MEDIASTINUM:The cardiomediastinalsilhouette appears normal in size and shape. BONES/SOFT TISSUES:No acute osseous injury. Cervical spine fusion hardware. ABDOMEN:No free air under the diaphragm. IMPRESSION: Right basilar subsegmental atelectasis. Signed by: Dr. Anabel Sanchez M.D. on 07/15/2019 6:59 AM Dictated By: DINORAH SANCHEZ MD, MD COPY TO: AISHA VIERA NP Creatine Esfbmv5400-57-93 06:44:00 Test Item Value Reference Range Interpretation Comments Creatine Kinase (test code = 2157-6) 48 29-168 [facility]odium Jbnjx9024-99-23 06:32:00 Test Item Value Reference Range Interpretation Comments Sodium Level (test code = 2951-2) 142 136-145 [facility] CenterPotassium Lywvk0989-02-54 06:32:00 Test Item Value Reference Range Interpretation Comments Potassium Level (test code = 2823-3) 3.8 3.5-5.1 [facility] CenterChloride Kmlgz9760-88-17 06:32:00 Test Item Value Reference Range Interpretation Comments Chloride Level (test code = 2075-0) 111 98-107 H [facility] CenterCarbon Dioxide Hnfvh3704-91-29 06:32:00 Test Item Value Reference Range Interpretation Comments Carbon Dioxide Level (test code = -29 8-9) [facility] CenterAnion Qnw3938-30-68 06:32:00 Test Item Value Reference Range Interpretation Comments Anion Gap (test code = 85662-4) 11.8 8-16 [facility] CenterBlood Urea Mlitwiwy3916-23-47 06:32:00 Test Item Value Reference Range Interpretation Comments Blood Urea Nitrogen (test code = 11-20 3094-0) [facility] CenterCreatinine2020-03-19 06:32:00 Test Item Value Reference Range Interpretation Comments Creatinine (test code = 2160-0) 0.71 0.57-1.11 [facility] CenterBUN/Creatinine Rdbub1330-27-52 06:32:00 Test Item Value Reference Range Interpretation Comments BUN/Creatinine Ratio (test code = 10-20 3097-3) [facility] CenterEstimat Glomerular Filtration Rate 2019-07-15 06:32:00 Test Item Value Reference Range Interpretation Comments Estimat Glomerular Filtration Rate > 60 >60 (test code = 742305724) Ranges were taken from the National Kidney Disease Education Program and the National Kidney Foundation literature.Reference ranges:60 or greater: Zxkhkj82- 59 (for 3 consecutive months): Chronic kidneydisease 15 or less: Kidney failure [facility] CenterGlucose Tadkh4258-60-49 06:32:00 Test Item Value Reference Range Interpretation Comments Glucose Level (test code = JPS0417) 95 74-118 [facility] CenterCalcium Dgfxa4246-99-38 06:32:00 Test Item Value Reference Range Interpretation Comments Calcium Level (test code = 41290-5) 9.3 8.4-10.2 [facility] CenterCreatine Kinase OK2815-07-96 06:21:00 Test Item Value Reference Range Interpretation Comments Creatine Kinase MB (test code = 0.40 0-5.0 84693-9) [facility] CenterTroponin Q1200-20-47 06:21:00 Test Item Value Reference Range Interpretation Comments Troponin I (test code = URQ3946) < 0.001 0-0.300 [facility] CenterWhite Blood Ajrtp5566-87-46 06:02:00 Test Item Value Reference Range Interpretation Comments White Blood Count (test code = 6690-2) 7.26 4.8-10.8 [facility] CenterRed Blood Paozg1791-33-78 06:02:00 Test Item Value Reference Range Interpretation Comments Red Blood Count (test code = 789-8) 4.41 3.6-5.1 [facility] CenterHemoglobin2020-03-19 06:02:00 Test Item Value Reference Range Interpretation Comments Hemoglobin (test code = 37391-4) 13.5 12.0-16.0 [facility] CenterHematocrit2020-03-19 06:02:00 Test Item Value Reference Range Interpretation Comments Hematocrit (test code = 4544-3) 40.1 34.2-44.1 [facility] CenterMean Corpuscular Xsdzrl5513-44-93 06:02:00 Test Item Value Reference Range Interpretation Comments Mean Corpuscular Volume (test code = 90.9 81-99 787-2) [facility] CenterMean Corpuscular Enwbiytrpv6365-15-36 06:02:00 Test Item Value Reference Range Interpretation Comments Mean Corpuscular Hemoglobin (test code 30.6 28-32 = 785-6) [facility] Corpuscular Hemoglobin Concent 2019-07-15 06:02:00 Test Item Value Reference Range Interpretation Comments Mean Corpuscular Hemoglobin Concent 33.7 31-35 (test code = 786-4) [facility] CenterRed Cell Distribution Iqzjd9718-19-72 06:02:00 Test Item Value Reference Range Interpretation Comments Red Cell Distribution Width (test code 12.8 11.7-14.4 = 90128-5) [facility] CenterPlatelet Opvvx8214-20-85 06:02:00 Test Item Value Reference Range Interpretation Comments Platelet Count (test code = 777-3) 211 140-360 [facility] CenterNeutrophils (%) (Auto)2019-07-15 06:02:00 Test Item Value Reference Range Interpretation Comments Neutrophils (%) (Auto) (test code = 43.5 38.7-80.0 81843-5) [facility] CenterLymphocytes (%) (Auto)2019-07-15 06:02:00 Test Item Value Reference Range Interpretation Comments Lymphocytes (%) (Auto) (test code = 42.4 18.0-39.1 H 736-9) [facility] CenterMonocytes (%) (Auto)2019-07-15 06:02:00 Test Item Value Reference Range Interpretation Comments Monocytes (%) (Auto) (test code = 11.3 4.4-11.3 5905-5) [facility] CenterEosinophils (%) (Auto)2019-07-15 06:02:00 Test Item Value Reference Range Interpretation Comments Eosinophils (%) (Auto) (test code = 1.9 0.0-6.0 713-8) [facility] CenterBasophils (%) (Auto)2019-07-15 06:02:00 Test Item Value Reference Range Interpretation Comments Basophils (%) (Auto) (test code = 0.8 0.0-1.0 706-2) [facility] CenterIM GRANULOCYTES %2019-07-15 06:02:00 Test Item Value Reference Range Interpretation Comments IM GRANULOCYTES % (test code = IM 0.1 0.0-1.0 GRANULOCYTES %) [facility] CenterNeutrophils # (Auto)2019-07-15 06:02:00 Test Item Value Reference Range Interpretation Comments Neutrophils # (Auto) (test code = 3.2 2.1-6.9 751-8) [facility] CenterLymphocytes # (Auto)2019-07-15 06:02:00 Test Item Value Reference Range Interpretation Comments Lymphocytes # (Auto) (test code = 3.1 1.0-3.2 85325-7) [facility] CenterMonocytes # (Auto)2019-07-15 06:02:00 Test Item Value Reference Range Interpretation Comments Monocytes # (Auto) (test code = 742-7) 0.8 0.2-0.8 [facility] CenterEosinophils # (Auto)2019-07-15 06:02:00 Test Item Value Reference Range Interpretation Comments Eosinophils # (Auto) (test code = 0.1 0.0-0.4 711-2) [facility] CenterBasophils # (Auto)2019-07-15 06:02:00 Test Item Value Reference Range Interpretation Comments Basophils # (Auto) (test code = 704-7) 0.1 0.0-0.1 [facility] CenterAbsolute Immature Granulocyte (auto 2019-07-15 06:02:00 Test Item Value Reference Range Interpretation Comments Absolute Immature Granulocyte (auto 0.01 0-0.1 (test code = Absolute Immature Granulocyte (auto) [facility] CenterTriglycerides Fguol9884-23-15 20:14:00 Test Item Value Reference Range Interpretation Comments Triglycerides Level (test code = 282 0-149 H 2571-8) [facility] CenterCholesterol Uxlwq1509-55-55 20:14:00 Test Item Value Reference Range Interpretation Comments Cholesterol Level (test code = 2093-3) 144 0-199 Less than 200 mg/dL Low Bmcx062 - 239 mg/dL Borderline Eshg075 mg/dl and greaterHigh RiskTexas Vista Medical CenterLDL Cholesterol 2019-07-14 20:14:00 Test Item Value Reference Range Interpretation Comments LDL Cholesterol (test code = 2089-1) 37 60-130 L [facility] CenterHDL Fvgvqgzutbx8017-96-28 20:14:00 Test Item Value Reference Range Interpretation Comments HDL Cholesterol (test code = 2085-9) 51 40-60 [facility] CenterCholesterol/HDL Yhwlc9665-42-51 20:14:00 Test Item Value Reference Range Interpretation Comments Cholesterol/HDL Ratio (test code = 2.8 3.0-3.6 L 9830-1) [facility] SINGLE (PORTABLE)2019-07-14 16:51:00 [facility] [address] [address] Patient Name: HAYLEY LI MR #: [id number] : 1955 Age/Sex: 64/F Req #: [id number] Adm Physician: Ordered by: AISHA VIERA [employer] Report #: [id number] Location: ER Room/Bed: Procedure: [id number] DX/CHESTSINGLE (PORTABLE) Exam Date: 07/14/19 Exam Time: 1610 REPORT STATUS: Signed EXAMINATION: CHEST SINGLE (PORTABLE) INDICATION: Shortness of breath COMPARISON: None FINDINGS: LINES/TUBES:EKG leads overlie the chest. LUNGS:The lungs are well-inflated. No focal consolidation or pulmonary edema. PLEURA:No pleural effusion or pneumothorax. MEDIASTINUM:The cardiomediastinal silhouette appears normal in size and shape. BONES/SOFT TISSUES:No acute osseous injury. Cervical spine fusionhardware. ABDOMEN:No free air under the diaphragm. IMPRESSION: No focal pneumonia orpulmonary edema. Signed by: Rosy Mccarthy MD on 07/14/2019 4:52 PM Dictated By: ROSY MCCARTHY MD 49 Transcribed By: KEY on 07/14/191651 COPY TO: AISHA VIERA NPB-Type Natriuretic Vvidfhz9023-50-87 16:23:00 Test Item Value Reference Range Interpretation Comments B-Type Natriuretic Peptide (test code = 15.6 0-100 69405-6) [facility] CenterUrine [id number] 16:15:00 Test Item Value Reference Range Interpretation Comments Urine WBC (test code = 5821-4) 0-5 0-5 [facility] CenterUrine [id number] 16:15:00 Test Item Value Reference Range Interpretation Comments Urine RBC (test code = 58118-2) 0-5 0-5 [facility] CenterUrine Mlyuxzqb2394-79-86 16:15:00 Test Item Value Reference Range Interpretation Comments Urine Bacteria (test code = 28187-1) NONE NONE [facility] CenterUrine Epithelial Rzjlu9841-43-28 16:15:00 Test Item Value Reference Range Interpretation Comments Urine Epithelial Cells (test code = RARE NONE 20666-1) [facility] CenterTotal Lveqzbfuv9561-06-68 16:11:00 Test Item Value Reference Range Interpretation Comments Total Bilirubin (test code = 1975-2) 0.2 0.2-1.2 [facility] CenterAspartate Amino Transf (AST/SGOT) 2019-07-14 16:11:00 Test Item Value Reference Range Interpretation Comments Aspartate Amino Transf (AST/SGOT) (test 28 5-34 code = Aspartate Amino Transf (AST/SGOT)) [facility] CenterAlanine Aminotransferase (ALT/SGPT) 2019-07-14 16:11:00 Test Item Value Reference Range Interpretation Comments Alanine Aminotransferase (ALT/SGPT) 27 0-55 (test code = 1742-6) [facility] CenterTotal Znuscso6597-94-98 16:11:00 Test Item Value Reference Range Interpretation Comments Total Protein (test code = 2885-2) 7.4 6.5-8.1 [facility] CenterAlbumin2020-03-18 16:11:00 Test Item Value Reference Range Interpretation Comments Albumin (test code = 1751-7) 3.8 3.5-5.0 [facility] CenterGlobulin2020-03-18 16:11:00 Test Item Value Reference Range Interpretation Comments Globulin (test code = 28298-0) 3.6 2.3-3.5 H [facility] CenterAlbumin/Globulin Vgrge7207-34-90 16:11:00 Test Item Value Reference Range Interpretation Comments Albumin/Globulin Ratio (test code = 1.1 0.8-2.0 1759-0) [facility] CenterAlkaline Nxpgbnooygs4142-76-56 16:11:00 Test Item Value Reference Range Interpretation Comments Alkaline Phosphatase (test code = 139 40-150 6768-6) [facility] CenterProthrombin Qkzi6247-17-55 16:09:00 Test Item Value Reference Range Interpretation Comments Prothrombin Time (test code = 5902-2) 12.0 11.9-14.5 [facility] CenterProthromb Time International Ratio 2019-07-14 16:09:00 Test Item Value Reference Range Interpretation Comments Prothromb Time International Ratio 0.84 (test code = 6301-6) Oral Anticoagulant Therapy INR Values:1. Low Intensity Therapy 1.5 - 2.02. Moderate IntensityTherapy 2.0 - 3.03. High Intensity Therapy(1) 2.5 - 3.54. High Intensity Therapy(2) 3.0 - 4.05. Panic Value INR > 5.0[facility] CenterActivated Partial Thromboplast Mkse4662-69-77 16:09:00 Test Item Value Reference Range Interpretation Comments Activated Partial Thromboplast Time 30.3 23.8-35.5 (test code = 50843-5) [facility] CenterUrine [id number] 16:00:00 Test Item Value Reference Range Interpretation Comments Urine Color (test code = 5778-6) YELLOW YELLOW [facility] CenterUrine Kwgyocg6707-29-36 16:00:00 Test Item Value Reference Range Interpretation Comments Urine Clarity (test code = 84062-6) SL CLOUDY CLEAR [facility] CenterUrine Specific Bhqtvqd2630-30-61 16:00:00 Test Item Value Reference Range Interpretation Comments Urine Specific Orestes (test code = 1.020 1.010-1.025 5811-5) [facility] CenterUrine [id number] 16:00:00 Test Item Value Reference Range Interpretation Comments Urine pH (test code = 88490-7) 5.5 5-7 [facility] CenterUrine Leukocyte Kybdxphr3268-79-80 16:00:00 Test Item Value Reference Range Interpretation Comments Urine Leukocyte Esterase (test code = TRACE NEGATIVE H 5799-2) [facility] CenterUrine Vdmtsej3802-98-21 16:00:00 Test Item Value Reference Range Interpretation Comments Urine Nitrite (test code = 21555-3) NEGATIVE NEGATIVE [facility] CenterUrine Okrupxq2208-96-30 16:00:00 Test Item Value Reference Range Interpretation Comments Urine Protein (test code = 5804-0) NEGATIVE NEGATIVE [facility] CenterUrine Glucose (UA)2019-07-14 16:00:00 Test Item Value Reference Range Interpretation Comments Urine Glucose (UA) (test code = NEGATIVE NEGATIVE 2349-9) [facility] CenterUrine Ehmoizz7780-01-68 16:00:00 Test Item Value Reference Range Interpretation Comments Urine Ketones (test code = 33520-6) NEGATIVE NEGATIVE [facility] CenterUrine Rqvoysrmwukk1362-73-70 16:00:00 Test Item Value Reference Range Interpretation Comments Urine Urobilinogen (test code = 0.2 0.2-1 57255-5) [facility] CenterUrine Rhsmlwuab6109-54-74 16:00:00 Test Item Value Reference Range Interpretation Comments Urine Bilirubin (test code = 1978-6) NEGATIVE NEGATIVE [facility] CenterUrine Xnwhm1597-79-80 16:00:00 Test Item Value Reference Range Interpretation Comments Urine Blood (test code = 52930-7) TRACE NEGATIVE H [facility] CenterCBC W/O [id number] 18:53:00 Test Item Value Reference Range Interpretation Comments WHITE BLOOD CELL (test code = 6.6 K/mm3 4.5-12.5 N WBC) RED BLOOD CELL (test code = 4.24 mill/mm3 3.7-5.2 N RBC) HEMOGLOBIN (test code = HGB) 12.9 gram/dL 11.5-15.5 N HEMATOCRIT (test code = HCT) 39.9 % 36.0-46.0 N MEAN CELL VOLUME (test code = 94.1 fL 80-98 N MCV) MEAN CELL HGB (test code = MCH) 30.4 picogram 27.0-33.0 N MEAN CELL HGB CONCETRATION 32.3 gram/dL 33.0-36.0 L (test code = MCHC) RED CELL DISTRIBUTION WIDTH 13.0 % 11.6-16.2 N (test code = RDW) PLATELET COUNT (test code = 236 K/mm3 150-450 N PLT) MEAN PLATELET VOLUME (test code 10.2 fL 6.7-11.0 N = MPV) BASIC METABOLIC [id number] 18:51:00 Test Item Value Reference Range Interpretation Comments SODIUM (test code = 139 mmol/L 136-145 N NA) POTASSIUM (test code 3.7 mmol/L 3.5-5.1 N = K) CHLORIDE (test code = 106.0 mmol/L 98-107 N CL) CARBON DIOXIDE (test 28.0 mmol/L 21-32 N code = CO2) ANION GAP (test code 8.7 10-20 L = GAP) GLUCOSE (test code = 104 mg/dL 74-106 N GLU) BLOOD UREA NITROGEN 20 mg/dL 7-18 H (test code = BUN) GLOMERULAR FILTRATION > 60 mL/min >=60 Estima yennifer GFR by RATE (test code = using Carmelo fied MDRD GFR) formula.Chronic kidney disease is defined as [facility] er kidney damageor GFR <60 mL/min/1.73 m2 for >3 months. CREATININE (test code 0.70 mg/dL 0.55-1.02 N Note change in = CREAT) reference range due to change in reagent. BUN/CREATININE RATIO 28.6 10-20 H (test code = BUN/CREA) CALCIUM (test code = 8.5 mg/dL 8.5-10.1 N CA) [id number] 18:51:00 Test Item Value Reference Range Interpretation Comments TROPONIN-I (test code = TROPI) <0.015 ng/mL 0-0.045 N CBC W/O [id number] 18:51:00 Test Item Value Reference Range Interpretation Comments WHITE BLOOD CELL (test code = K/mm3 4.5-12.5 WBC) RED BLOOD CELL (test code = RBC) mill/mm3 3.7-5.2 HEMOGLOBIN (test code = HGB) 12.9 gram/dL 11.5-15.5 N HEMATOCRIT (test code = HCT) 39.9 % 36.0-46.0 N MEAN CELL VOLUME (test code = fL 80-98 MCV) MEAN CELL HGB (test code = MCH) picogram 27.0-33.0 MEAN CELL HGB CONCETRATION (test gram/dL 33.0-36.0 code = MCHC) RED CELL DISTRIBUTION WIDTH % 11.6-16.2 (test code = RDW) PLATELET COUNT (test code = PLT) K/mm3 150-450 MEAN PLATELET VOLUME (test code fL 6.7-11.0 = MPV) TROPONIN I [id number] 18:36:00 Test Item Value Reference Range Interpretation Comments TROPONIN I RAPID 0.00 ng/mL <0.08 Please Note New (test code = Reference Range TROPIRAP) 0.00-0.079 ng/m L - Negative>or= 0. 08 ng/mL - Positive The us e of serial sampling and te sting protocol is are commended practice.An juliocesar vated troponin level alone is often not suffi cient fordiagnosis of myocardial infarction. Tro ponin results obtaine d by different assay s may vary.Evaluation of the extent of myoca rdial damage based on increase of troponin would be valid only if similar methodology is used. - XR CHEST 1 [id number] 17:48:00 FAX: Cheyanne Quiroga DO [place]: B St: REG FAX: Alphonse Ramirez [phone] Name: HAYLEY LI [facility] : 1955 Age/S: 63/F [address] [facility] Unit #: [id number] Loc: [place] [address] Phys: Cheyanne Quiroga DO Acct: Jean [id number] Dis Date: Status: REG ER PHONE #: [phone] Exam Date: 09/09/2018 1735 FAX #: [phone] Reason: CHEST PAIN EXAMS: CPT CODE: [id number] XR CHEST 1 V 72355 REASON FOR EXAM: CHEST PAIN EXAM ORDER DATE: 09/09/2018 5:19 PM Ordering Anai:Cheyanne Quiroga DO PROCEDURE: - XR CHEST 1 V COMPARISON: FINDINGS: Portable AP frontal view of the chest obtained at 5:35 PM shows clear lungs without evidence of consolidation. There is no evidence of effusion. The heart size is minimally enlarged. Pulmonary vasculatures are unremarkable. IMPRESSION: No active disease. at 4476 Reported and signed by: Neto Castro M.D. CC: Cheyanne Quiroga DO; Alphonse Rg Technologist: Lc Marrufo RT(R) Trnscrd Date/Time/By: 09/09/2018 (8627) : By: MamiL Orig Print D/T: S: 09/09/2018 (1417) PAGE 1 Signed Report- CT ABD PELVIS W/[id number] 17:20:00 Name: HAYLEY LI [facility] : 1955 Age/S: 63 / F [address] [facility] Unit #: [id number] Loc: [place] [address] Phys: Cornell Solares MD Acct: [id number] Dis Date: Status: REG ER PHONE #: [phone] Exam Date: 08/22/2018 1701 FAX #: [phone] Reason: abd pain EXAMS: CPTCODE: [id number] CT ABD PELVIS W/CONT 84858 HISTORY: Abdominal pain TECHNIQUE: Immediate and delayed [address] images were obtained through the abdomen and pelvis after IV administration of 100 mL of Isovue-370 contrast. Sagittal and coronal reformatted images were generated. Automated exposure control for dose reduction. COMPARISON: 06/08/18 FINDINGS: Lung bases are clear. Normal heart size. Cholecystectomy. Mild biliary dilation, not uncommon postoperatively. Liver, pancreas, spleen, adrenal glands, and kidneys are unremarkable. Limited ev aluation the GI tract without oral contrast. Stomach and small bowel are unremarkable. Colonicfecal retention. No free air or free fluid. No lymphadenopathy. Abdominal aorta is normal caliber. Urinary bladder is unremarkable. Hysterectomy. No pelvic free fluid. Bony L5-S1 fusion with posterior decompression. Degenerative changes of the spine, sacral iliac joints, and hips. IMPRESSION: No acute intra-abdominal process. at 1720 Reported and signed by: Isabell Florez D.O. CC: Cornell Solares MD; Alphonse Rg Technologist:Briana Ariza CTDI: DLP: Trnscb Date/Time: 08/22/2018 (1719) ThaddeusLDP1 Orig Print D/T: S: 08/22/2018 (172) CTDI: DLP: PAGE 1 Signed ReportLACTIC [id number] 16:42:00 Test Item Value Reference Range Interpretation Comments LACTIC ACID (test code = LACT) 1.5 MMOL/L 0.4-1.9 N COMPREHENSIVE METABOLIC [id number] 16:35:00 Test Item Value Reference Range Interpretation Comments SODIUM (test code = 143 mmol/L 135-148 N NA) POTASSIUM (test code = 3.7 mmol/L 3.5-5.1 N K) CHLORIDE (test code = 108 mmol/L 101-109 N CL) CARBON DIOXIDE (test 26.2 mmol/L 21-32 N code = CO2) ANION GAP (test code = 13 mmol/L 10-20 N GAP) GLUCOSE (test code = 103 mg/dL 74-106 N GLU) BLOOD UREA NITROGEN 18 mg/dL 3-21 N (test code = BUN) CREATININE (test code 0.67 mg/dL 0.55-1.3 N = CREAT) BUN/CREATININE RATIO 26.9 10-20 H (test code = BUN/CREA) TOTAL PROTEIN (test 7.0 g/dL 6.5-8.4 N code = PROT) ALBUMIN (test code = 3.4 g/dL 3.4-4.8 N ALB) GLOBULIN (test code = 3.6 G/DL 1-10 N GLOB) ALBUMIN/GLOBULIN RATIO 0.9 RATIO 0.75-1.50 N (test code = A/G) CALCIUM (test code = 8.7 mg/dL 8.4-10.2 N CA) BILIRUBIN TOTAL (test 0.30 mg/dL 0.0-1.0 N code = BILT) SGOT/AST (test code = 25 U/L 6-32 N AST) SGPT/ALT (test code = 29 U/L 12-78 N Note: Change in ALT) REFERENCE RANGE due to new reagent method. ALKALINE PHOSPHATASE 124 U/L 38-126 N TOTAL (test code = ALKP) [id number] 16:35:00 Test Item Value Reference Range Interpretation Comments LIPASE (test code = LIP) 141 U/L 128-270 N COMPREHENSIVE METABOLIC [id number] 16:29:00 Test Item Value Reference Range Interpretation Comments SODIUM (test code = NA) 143 mmol/L 135-148 N POTASSIUM (test code = K) 3.7 mmol/L 3.5-5.1 N CHLORIDE (test code = CL) 108 mmol/L 101-109 N CARBON DIOXIDE (test code = CO2) 26.2 mmol/L 21-32 N ANION GAP (test code = GAP) 13 mmol/L 10-20 N GLUCOSE (test code = GLU) 103 mg/dL 74-106 N BLOOD UREA NITROGEN (test code = 18 mg/dL 3-21 N BUN) CREATININE (test code = CREAT) 0.67 mg/dL 0.55-1.3 N BUN/CREATININE RATIO (test code = 26.9 10-20 H BUN/CREA) TOTAL PROTEIN (test code = PROT) gram/dL 6.4-8.2 ALBUMIN (test code = ALB) g/dL 3.4-5.0 GLOBULIN (test code = GLOB) g/dL 2.7-4.2 ALBUMIN/GLOBULIN RATIO (test code 0.75-1.50 = A/G) CALCIUM (test code = CA) 8.7 mg/dL 8.4-10.2 N BILIRUBIN TOTAL (test code = mg/dL 0.2-1.2 BILT) SGOT/AST (test code = AST) IUnit/L 15-37 SGPT/ALT (test code = ALT) U/L 10-69 ALKALINE PHOSPHATASE TOTAL (test IUnit/L 45-117 code = ALKP) [id number] 16:29:00 Test Item Value Reference Range Interpretation Comments LIPASE (test code = LIP) Unit/L 144-286 CBC W/AUTO [id number] 16:25:00 Test Item Value Reference Range Interpretation Comments WHITE BLOOD CELL (test code = 7.0 K/mm3 4.5-12.5 N WBC) RED BLOOD CELL (test code = 3.82 mill/mm3 3.7-5.2 N RBC) HEMOGLOBIN (test code = HGB) 12.1 gram/dL 11.5-15.5 N HEMATOCRIT (test code = HCT) 36.3 % 36.0-46.0 N MEAN CELL VOLUME (test code = 95.0 fL 80-98 N MCV) MEAN CELL HGB (test code = MCH) 31.7 picogram 27.0-33.0 N MEAN CELL HGB CONCETRATION 33.3 gram/dL 33.0-36.0 N (test code = MCHC) RED CELL DISTRIBUTION WIDTH 13.4 % 11.6-16.2 N (test code = RDW) RED CELL DISTRIBUTION WIDTH SD 44.4 fL 39.1-52.0 N (test code = RDW-SD) PLATELET COUNT (test code = 230 K/mm3 150-450 N PLT) MEAN PLATELET VOLUME (test code 10.1 fL 6.7-11.0 N = MPV) NEUTROPHIL % (test code = NT%) 41.6 % 39.0-69.0 N LYMPHOCYTE % (test code = LY%) 43.6 % 25.0-55.0 N MONOCYTE % (test code = MO%) 11.1 % 0.0-10.0 H EOSINOPHIL % (test code = EO%) 3.0 % 0.0-5.0 N BASOPHIL % (test code = BA%) 0.7 % 0.0-1.0 N NEUTROPHIL # (test code = NT#) 2.91 K/mm3 1.8-7.7 N LYMPHOCYTE # (test code = LY#) 3.05 K/mm3 1.0-5.0 N MONOCYTE # (test code = MO#) 0.78 K/mm3 0-0.8 N EOSINOPHIL # (test code = EO#) 0.21 K/mm3 0.0-0.5 N BASOPHIL # (test code = BA#) 0.05 K/mm3 0.0-0.2 N MANUAL DIFF REQUIRED (test code NO = MDIFF) URINALYSIS [id number] 15:52:00 Test Item Value Reference Range Interpretation Comments UA COLOR (test code = YELLOW YELLOW COLU) UA APPEARANCE (test code CLEAR CLEAR = APPU) UA GLUCOSE DIPSTICK (test norm mg/dL NEGATIVE code = DGLUU) UA BILIRUBIN DIPSTICK NEGATIVE mg/dL NEGATIVE (test code = BILU) UA KETONE DIPSTICK (test neg mg/dL NEGATIVE code = KETU) UA SPECIFIC GRAVITY (test 1.010 1.001-1.035 code = SGU) UA BLOOD DIPSTICK (test neg Óscar/uL NEGATIVE code = SAGAR) UA PH DIPSTICK (test code 7.0 5.0-8.0 = FLORA) UA PROTEIN DIPSTICK (test neg mg/dL Neg-15 code = PROU) UA UROBILINIOGEN DIPSTICK norm mg/dL 0.0-0.2 (test code = URO) UA NITRITE DIPSTICK (test NEGATIVE NEGATIVE code = MAGGIE) UA LEUKOCYTE ESTERASE 25 Bobby/uL (Trace) uL NEGATIVE A DIPSTICK (test code = LEUU) UA WBC (test code = WBCU) 0-5 per HPF 0-5 UA RBC (test code = RBCU) 0-2 per HPF 0-5 UA EPITHELIAL CELLS (test Rare (0-1/hpf) per Few code = EPIU) HPF UA BACTERIA (test code = FEW per HPF NONE BACU) Urine Source? Clean CatchUR HCG [id number] 15:52:00 Test Item Value Reference Range Interpretation Comments UR HCG QUAL (test NEGATIVE This HCGQL test is NOT code = HCGQLU) applicable fo r MALE patients.Check with nurse about probable order error.If Tumor Marker Test needed, nu rse should order test "HCG TU"(Test #[id number])---- - Urine Source? Clean CatchThyroid Stimulating Hormone (TSH)2018-07-16 14:52:00 Test Item Value Reference Range Interpretation Comments Thyroid Stimulating Hormone (TSH) (test 1.902 0.350-4.940 code = 32932-2) [facility] Oyybs6730[facility]78[facility]08 14:36:00 Test Item Value Reference Range Interpretation Comments Sodium Level (test code = 2951-2) 133 136-145 L [facility]Pot[facility] Zsbqj1739-87-24 14:36:00 Test Item Value Reference Range Interpretation Comments Potassium Level (test code = 2823-3) 3.8 3.5-5.1 [facility] CenterChloride [id number] 14:36:00 Test Item Value Reference Range Interpretation Comments Chloride Level (test code = 2075-0) 100 98-107 [facility] CenterCarbon Dioxide [id number] 14:36:00 Test Item Value Reference Range Interpretation Comments Carbon Dioxide Level (test code = 24 -8-9) [facility] CenterAnion [id number] 14:36:00 Test Item Value Reference Range Interpretation Comments Anion Gap (test code = 44705-2) 12.8 8-16 [facility] CenterBlood Urea Crigsyls2064-56-41 14:36:00 Test Item Value Reference Range Interpretation Comments Blood Urea Nitrogen (test code = 11-20 3094-0) [facility] CenterCreatinine2019-03-21 14:36:00 Test Item Value Reference Range Interpretation Comments Creatinine (test code = 2160-0) 0.83 0.57-1.11 [facility] CenterBUN/Creatinine Uxtfi8325-08-00 14:36:00 Test Item Value Reference Range Interpretation Comments BUN/Creatinine Ratio (test code = 19 6- 3097-3) [facility] CenterEstimat Glomerular Filtration Rate 2018-07-16 14:36:00 Test Item Value Reference Range Interpretation Comments Estimat Glomerular Filtration Rate > 60 >60 (test code = 470025033) Ranges were taken from the National Kidney Disease Education Program and the National Kidney Foundation literature.Reference ranges:60 or greater: Jkjbkz91- 59 (for 3 consecutive months): Chronic kidneydisease 15 or less: Kidney failure [facility] CenterGlucose Gypxi2996-05-91 14:36:00 Test Item Value Reference Range Interpretation Comments Glucose Level (test code = NUM9533) 93 74-118 [facility] CenterCalcium Tnmzu5119-20-15 14:36:00 Test Item Value Reference Range Interpretation Comments Calcium Level (test code = 92896-8) 9.7 8.4-10.2 [facility] CenterMagnesium Huqic6372-93-16 14:36:00 Test Item Value Reference Range Interpretation Comments Magnesium Level (test code = 79713-1) 2.3 1.3-2.1 H [facility] CenterTotal Abdfsaoql4183-02-22 14:36:00 Test Item Value Reference Range Interpretation Comments Total Bilirubin (test code = 1975-2) 0.8 0.2-1.2 [facility] CenterAspartate Amino Transf (AST/SGOT) 2018-07-16 14:36:00 Test Item Value Reference Range Interpretation Comments Aspartate Amino Transf (AST/SGOT) (test 33 5-34 code = Aspartate Amino Transf (AST/SGOT)) [facility] CenterAlanine Aminotransferase (ALT/SGPT) 2018-07-16 14:36:00 Test Item Value Reference Range Interpretation Comments Alanine Aminotransferase (ALT/SGPT) 25 0-55 (test code = 1742-6) [facility] CenterTotal Nrjnens5209-62-69 14:36:00 Test Item Value Reference Range Interpretation Comments Total Protein (test code = 2885-2) 8.3 6.5-8.1 H [facility] CenterAlbumin2019-03-21 14:36:00 Test Item Value Reference Range Interpretation Comments Albumin (test code = 1751-7) 4.3 3.5-5.0 [facility] CenterGlobulin2019-03-21 14:36:00 Test Item Value Reference Range Interpretation Comments Globulin (test code = 67494-6) 4.0 2.3-3.5 H [facility] CenterAlbumin/Globulin Hybxm5354-91-83 14:36:00 Test Item Value Reference Range Interpretation Comments Albumin/Globulin Ratio (test code = 1.1 0.8-2.0 1759-0) [facility] CenterAlkaline Cfcnjjhclrd5305-80-07 14:36:00 Test Item Value Reference Range Interpretation Comments Alkaline Phosphatase (test code = 123 40-150 6768-6) [facility] CenterUrine [id number] 14:30:00 Test Item Value Reference Range Interpretation Comments Urine WBC (test code = 5821-4) 0-5 0-5 [facility] CenterUrine [id number] 14:30:00 Test Item Value Reference Range Interpretation Comments Urine RBC (test code = 11874-3) NONE 0-5 [facility] CenterUrine Cotydask0175-93-33 14:30:00 Test Item Value Reference Range Interpretation Comments Urine Bacteria (test code = 83553-0) FEW NONE [facility] CenterUrine Epithelial Juwot2156-77-32 14:30:00 Test Item Value Reference Range Interpretation Comments Urine Epithelial Cells (test code = RARE NONE 00864-5) [facility] CenterUrine Giioq3548-88-97 14:21:00 Test Item Value Reference Range Interpretation Comments Urine Color (test code = 5778-6) STRAW YELLOW [facility] CenterUrine Htekjwb8937-07-27 14:21:00 Test Item Value Reference Range Interpretation Comments Urine Clarity (test code = 99700-3) CLEAR CLEAR [facility] CenterUrine Specific Ypktvsp2614-68-70 14:21:00 Test Item Value Reference Range Interpretation Comments Urine Specific Orestes (test code = 1.015 1.010-1.025 5811-5) [facility] CenterUrine [id number] 14:21:00 Test Item Value Reference Range Interpretation Comments Urine pH (test code = 69492-8) 8 5-7 H [facility] CenterUrine Leukocyte Nodbnzwe2318-36-22 14:21:00 Test Item Value Reference Range Interpretation Comments Urine Leukocyte Esterase (test code NEGATIVE NEGATIVE = 5799-2) [facility] CenterUrine Rvvqupy7852-07-13 14:21:00 Test Item Value Reference Range Interpretation Comments Urine Nitrite (test code = 20227-8) NEGATIVE NEGATIVE [facility] CenterUrine Zxulfgb3760-52-79 14:21:00 Test Item Value Reference Range Interpretation Comments Urine Protein (test code = 5804-0) NEGATIVE NEGATIVE [facility] CenterUrine Glucose (UA)2018-07-16 14:21:00 Test Item Value Reference Range Interpretation Comments Urine Glucose (UA) (test code = NEGATIVE NEGATIVE 2349-9) [facility] CenterUrine Bcbpwnn0872-40-18 14:21:00 Test Item Value Reference Range Interpretation Comments Urine Ketones (test code = 78655-0) NEGATIVE NEGATIVE [facility] Opiates Wwkspq2495-72-21 14:21:00 Test Item Value Reference Range Interpretation Comments Urine Opiates Screen (test code = NEGATIVE NEGATIVE 88492-6) ALL TESTS PERFORMED MANUALLY ON Omnidrone TOX/SEE TESTSaint [facility] Center Barbiturates Uyqgkl1531-11-07 14:21:00 Test Item Value Reference Range Interpretation Comments Urine Barbiturates Screen (test code NEGATIVE NEGATIVE = 853512862) [facility] CenterUrine Phencyclidine Saeizx2522-66-82 14:21:00 Test Item Value Reference Range Interpretation Comments Urine Phencyclidine Screen (test NEGATIVE NEGATIVE code = 07279-7) [facility] Amphetamines Jqqfkb8278-67-23 14:21:00 Test Item Value Reference Range Interpretation Comments Urine Amphetamines Screen (test code NEGATIVE NEGATIVE = 88315-2) [facility] CenterUrine Methamphetamines Qrgkje8988-14-93 14:21:00 Test Item Value Reference Range Interpretation Comments Urine Methamphetamines Screen (test NEGATIVE NEGATIVE code = Urine Methamphetamines Screen) [facility] CenterUrine Benzodiazepines Ttjffz1974-02-80 14:21:00 Test Item Value Reference Range Interpretation Comments Urine Benzodiazepines Screen (test NEGATIVE NEGATIVE code = 99162-9) [facility] CenterUrine Cocaine Wqahau6530-39-87 14:21:00 Test Item Value Reference Range Interpretation Comments Urine Cocaine Screen (test code = NEGATIVE NEGATIVE 3398-5) [facility] CenterUrine Cannabinoids Prwlpa7675-96-96 14:21:00 Test Item Value Reference Range Interpretation Comments Urine Cannabinoids Screen (test code NEGATIVE NEGATIVE = 23375-2) THESE RESULTS ARE FOR MEDICAL TREATMENT ONLYTHIS REPORT CONTAINS UNCONFIRMED SCREENING RESULTS*POSITIVE RESULTS WILL BE CONFIRMED BY REFERENCE LAB UPON REQUEST CUT-OFFDRUG CLASS CONCENTRATION ng/mLAmphetamines 1000Met hamphetamines 1000Cocaine 300Opiate 300Phencyclidine 25Cannabinoid 50Barbiturates 300Benzodiazepine 300Methadone 300[facility] CenterUrine Methadone Screen 2018-07-16 14:21:00 Test Item Value Reference Range Interpretation Comments Urine Methadone Screen (test code = NEGATIVE NEGATIVE 88221-5) THESE RESULTS ARE FOR MEDICAL TREATMENT ONLYTHIS REPORT CONTAINS UNCONFIRMED SCREENING RESULTS*POSITIVE RESULTS WILL BE CONFIRMED BY REFERENCE LAB UPON REQUEST CUT-OFFDRUG CLASS CONCENTRATION ng/mLAmphetamines 1000Met hamphetamines 1000Cocaine Metabolite 300Opiate 300Phencyclidine 25Cannabinoid 50Barbiturates 300Benzodiazepine 300Methadone 300[facility] CenterUrine Pywupxeacxic8297-63-69 14:21:00 Test Item Value Reference Range Interpretation Comments Urine Urobilinogen (test code = 1 0.2-1 38653-6) [facility] CenterUrine Apffefgwr8209-84-80 14:21:00 Test Item Value Reference Range Interpretation Comments Urine Bilirubin (test code = 1978-6) NEGATIVE NEGATIVE [facility] CenterUrine Eajxr4746-58-60 14:21:00 Test Item Value Reference Range Interpretation Comments Urine Blood (test code = 16702-6) NEGATIVE NEGATIVE [facility] CenterWhite Blood Fmmow6653-36-58 14:17:00 Test Item Value Reference Range Interpretation Comments White Blood Count (test code = 6690-2) 9.61 4.8-10.8 [facility] CenterRed Blood Lwznh0556-73-28 14:17:00 Test Item Value Reference Range Interpretation Comments Red Blood Count (test code = 789-8) 4.62 3.6-5.1 [facility] CenterHemoglobin2019-03-21 14:17:00 Test Item Value Reference Range Interpretation Comments Hemoglobin (test code = 79055-8) 14.7 12.0-16.0 [facility] CenterHematocrit2019-03-21 14:17:00 Test Item Value Reference Range Interpretation Comments Hematocrit (test code = 4544-3) 43.1 34.2-44.1 [facility] CenterMean Corpuscular Dmnueo5335-03-08 14:17:00 Test Item Value Reference Range Interpretation Comments Mean Corpuscular Volume (test code = 93.3 81-99 787-2) [facility] CenterMean Corpuscular Mslliuxusj6582-86-87 14:17:00 Test Item Value Reference Range Interpretation Comments Mean Corpuscular Hemoglobin (test code 31.8 28-32 = 785-6) [facility] CenterMean Corpuscular Hemoglobin Concent 2018-07-16 14:17:00 Test Item Value Reference Range Interpretation Comments Mean Corpuscular Hemoglobin Concent 34.1 31-35 (test code = 786-4) [facility] CenterRed Cell Distribution Qslcp7434-94-73 14:17:00 Test Item Value Reference Range Interpretation Comments Red Cell Distribution Width (test code 12.3 11.7-14.4 = 25448-6) [facility] CenterPlatelet Tjkgo4516-76-86 14:17:00 Test Item Value Reference Range Interpretation Comments Platelet Count (test code = 777-3) 262 140-360 [facility] CenterNeutrophils (%) (Auto)2018-07-16 14:17:00 Test Item Value Reference Range Interpretation Comments Neutrophils (%) (Auto) (test code = 55.3 38.7-80.0 72869-7) [facility] CenterLymphocytes (%) (Auto)2018-07-16 14:17:00 Test Item Value Reference Range Interpretation Comments Lymphocytes (%) (Auto) (test code = 35.9 18.0-39.1 736-9) [facility] CenterMonocytes (%) (Auto)2018-07-16 14:17:00 Test Item Value Reference Range Interpretation Comments Monocytes (%) (Auto) (test code = 6.6 4.4-11.3 5905-5) [facility] CenterEosinophils (%) (Auto)2018-07-16 14:17:00 Test Item Value Reference Range Interpretation Comments Eosinophils (%) (Auto) (test code = 1.2 0.0-6.0 713-8) [facility] CenterBasophils (%) (Auto)2018-07-16 14:17:00 Test Item Value Reference Range Interpretation Comments Basophils (%) (Auto) (test code = 0.7 0.0-1.0 706-2) [facility] CenterIM GRANULOCYTES %2018-07-16 14:17:00 Test Item Value Reference Range Interpretation Comments IM GRANULOCYTES % (test code = IM 0.3 0.0-1.0 GRANULOCYTES %) [facility] CenterNeutrophils # (Auto)2018-07-16 14:17:00 Test Item Value Reference Range Interpretation Comments Neutrophils # (Auto) (test code = 5.3 2.1-6.9 751-8) [facility] CenterLymphocytes # (Auto)2018-07-16 14:17:00 Test Item Value Reference Range Interpretation Comments Lymphocytes # (Auto) (test code = 3.5 1.0-3.2 H 73662-0) [facility] CenterMonocytes # (Auto)2018-07-16 14:17:00 Test Item Value Reference Range Interpretation Comments Monocytes # (Auto) (test code = 742-7) 0.6 0.2-0.8 [facility] CenterEosinophils # (Auto)2018-07-16 14:17:00 Test Item Value Reference Range Interpretation Comments Eosinophils # (Auto) (test code = 0.1 0.0-0.4 711-2) [facility] CenterBasophils # (Auto)2018-07-16 14:17:00 Test Item Value Reference Range Interpretation Comments Basophils # (Auto) (test code = 704-7) 0.1 0.0-0.1 [facility] CenterAbsolute Immature Granulocyte (auto 2018-07-16 14:17:00 Test Item Value Reference Range Interpretation Comments Absolute Immature Granulocyte (auto 0.03 0-0.1 (test code = Absolute Immature Granulocyte (auto) [facility] ABD PELVIS W/O [id number] 13:15:00 Name: HAYLEY LI [facility] : 1955 Age/S: 63 / F [address] [place] [address] Unit #: [id number] Loc: [place]car[place] [address] Phys: Ab Harley MD Acct: [id number] Dis Date: Status: REG ER PHONE #: [phone] Exam Date: 06/08/2018 1258 FAX #: [phone] Reason: abdominal pain EXAMS: CPTCODE: [id number] CT ABD PELVIS W/O CONT 91877 HISTORY: Abdominal pain. COMPARISON: CT scan from January 10, 2016. CT abdomen andpelvis: Stone protocol. Automated exposure control. CT ABDOMEN: The lung bases are clear. Dependent changes. The liver is unremarkable on this noncontrast exam. Patient is post cholecystectomy. Unremarkable spleen. The stomach distends incompletely however it is normal in appearance. Noncontrast pancreas and adrenals are unremarkable. Kidneys are free from hydroureteronephrosis. No calyceal stones. Interpolar scarring bilaterally. No pathologic adenopathy. Unremarkable unopacified vasculature. No bowel obstruction or colitis or diverticulitis or enteritis.Constipation. CT PELVIS: Appendix is poorly visible but appears grossly normal. Pelvic bowel loops are unobstructed. Unremarkable incompletely distendedurinary bladder. Patient is post hysterectomy. No free fluid or free air. No pelvic pathologic adenopathy. Subcutaneous tissues and the musculature are normal in appearance. No lytic or blastic lesions visible within the bony skeleton. DJD. Postop changes atL5 level. IMPRESSION: No acute intra-abdominal or intrapelvic patho logy. PAGE 1 Signed Report (CONTINUED) [facility] [place] [facility] 1955 Age/S: 63 / F [address] [facility] Unit #: [id number] [place]: [place] [address] Phys: Ab Harley MD Acct: [id number] Dis Date: Status: REG ER PHONE #: [phone] Exam Date: 06/08/2018 1258 FAX #: [phone] Reason: abdominal pain EXAMS: CPT CODE: [id number] CT ABD PELVIS W/O CONT 37180 <Continued> at 1315 Reported and signed by: Reilly Khan M.D. CC: Ab Harley MD Technologist:Melinda Fuentes CTDI: DLP: Trnscb Date/Time: 06/08/2018 (6440) ThaddeusTH4 Orig Print D/T: S: 06/08/2018 (7589) CTDI: DLP: PAGE 2 Signed ReportURINALYSIS COMPLETE 2018-06-08 12:38:00 Test Item Value Reference Range Interpretation Comments UA COLOR (test code YELLOW YELLOW = COLU) UA APPEARANCE (test hazy CLEAR code = APPU) UA GLUCOSE DIPSTICK NORMAL mg/dL NEGATIVE (test code = DGLUU) UA BILIRUBIN NEGATIVE mg/dL NEGATIVE DIPSTICK (test code = BILU) UA KETONE DIPSTICK neg mg/dL NEGATIVE (test code = KETU) UA SPECIFIC GRAVITY 1.030 1.001-1.035 (test code = SGU) UA BLOOD DIPSTICK neg Óscar/uL NEGATIVE (test code = SAGAR) UA PH DIPSTICK (test 7.0 5.0-8.0 code = FLORA) UA PROTEIN DIPSTICK 15 (TRACE) Neg-15 A (test code = PROU) mg/dL UA UROBILINIOGEN norm mg/dL 0.0-0.2 DIPSTICK (test code = URO) UA NITRITE DIPSTICK NEGATIVE NEGATIVE (test code = MAGGIE) UA LEUKOCYTE 500/uL (3+) uL NEGATIVE A ESTERASE DIPSTICK (test code = LEUU) UA WBC (test code = 20-30 per HPF 0-5 A IN SOME URINARY WBCU) TRACT INFECTION S THERE MAY NOT B E ENOUGHWBCs IN T HE URINE TO TRIGGE R AN AUTOMATIC (REFL EX) URINECULTURE. A SEPERATE ORDER FOR URINE CULTURE I S RECOMMENDEDIF T HERE IS STRONG SUPPO RT FOR A URINARY T RACT INFECTIONCLINIC ALLY . UA RBC (test code = 0-3 per HPF 0-5 RBCU) UA EPITHELIAL CELLS Few (2-5/hpf) Few (test code = EPIU) per HPF UA BACTERIA (test MODERATE per NONE A code = BACU) HPF UA HYALINE CAST 0-2 per LPF 0-2 (test code = HYALU) UA MUCUS (test code FEW per LPF NONE-FEW = MUCU) UA AMORPHOUS MODERATE per NONE A SEDIMENT (test code LPF = AMORU) Urine Source? Clean CatchURINALYSIS [id number] 12:35:00 Test Item Value Reference Range Interpretation Comments UA COLOR (test code = COLU) YELLOW YELLOW UA APPEARANCE (test code = hazy CLEAR APPU) UA GLUCOSE DIPSTICK (test NORMAL mg/dL NEGATIVE code = DGLUU) UA BILIRUBIN DIPSTICK (test NEGATIVE mg/dL NEGATIVE code = BILU) UA KETONE DIPSTICK (test neg mg/dL NEGATIVE code = KETU) UA SPECIFIC GRAVITY (test 1.030 1.001-1.035 code = SGU) UA BLOOD DIPSTICK (test code neg Óscar/uL NEGATIVE = SAGAR) UA PH DIPSTICK (test code = 7.0 5.0-8.0 FLORA) UA PROTEIN DIPSTICK (test 15 (TRACE) mg/dL Neg-15 A code = PROU) UA UROBILINIOGEN DIPSTICK norm mg/dL 0.0-0.2 (test code = URO) UA NITRITE DIPSTICK (test NEGATIVE NEGATIVE code = MAGGIE) UA LEUKOCYTE ESTERASE 500/uL (3+) uL NEGATIVE A DIPSTICK (test code = LEUU) UA WBC (test code = WBCU) per HPF 0-5 Urine Source? Clean CatchSodium [id number] 19:11:00 Test Item Value Reference Range Interpretation Comments Sodium Level (test code = 2951-2) 145 136-145 [facility] CenterPotassium Cuque7071-44-60 19:11:00 Test Item Value Reference Range Interpretation Comments Potassium Level (test code = 2823-3) 3.4 3.5-5.1 L [facility] CenterChloride Lxred3025-98-84 19:11:00 Test Item Value Reference Range Interpretation Comments Chloride Level (test code = 2075-0) 112 98-107 H [facility] CenterCarbon Dioxide Encfs4996-18-86 19:11:00 Test Item Value Reference Range Interpretation Comments Carbon Dioxide Level (test code = 2027-) [facility] CenterAnion Csy5809-55-92 19:11:00 Test Item Value Reference Range Interpretation Comments Anion Gap (test code = 30375-2) 14.4 8-16 [facility] CenterBlood Urea Fgltrhkn8933-22-61 19:11:00 Test Item Value Reference Range Interpretation Comments Blood Urea Nitrogen (test code = 11-20 3094-0) [facility] CenterCreatinine2018-07-28 19:11:00 Test Item Value Reference Range Interpretation Comments Creatinine (test code = 2160-0) 0.73 0.57-1.11 [facility] CenterBUN/Creatinine Snkni0988-84-13 19:11:00 Test Item Value Reference Range Interpretation Comments BUN/Creatinine Ratio (test code = 10-20 3097-3) [facility] CenterEstimat Glomerular Filtration Rate 2017-11-22 19:11:00 Test Item Value Reference Range Interpretation Comments Estimat Glomerular Filtration Rate 60- >60 (test code = 67932-8) Ranges were taken from the National Kidney Disease Education Program and the National Kidney Foundation literature.Reference ranges:60 or greater: Mibrvw15- 59 (for 3 consecutive months): Chronic kidneydisease 15 or less: Kidney failure [facility] CenterGlucose Kmref6955-65-39 19:11:00 Test Item Value Reference Range Interpretation Comments Glucose Level (test code = WNA8051) 83 74-118 [facility] CenterCalcium Wwfrj1555-15-27 19:11:00 Test Item Value Reference Range Interpretation Comments Calcium Level (test code = 94330-4) 8.7 8.4-10.2 [facility] CenterTotal Lkjihepjs1263-03-65 19:11:00 Test Item Value Reference Range Interpretation Comments Total Bilirubin (test code = 1975-2) 0.3 0.2-1.2 [facility] CenterAspartate Amino Transf (AST/SGOT) 2017-11-22 19:11:00 Test Item Value Reference Range Interpretation Comments Aspartate Amino Transf (AST/SGOT) (test 24 5-34 code = Aspartate Amino Transf (AST/SGOT)) [facility] CenterAlanine Aminotransferase (ALT/SGPT) 2017-11-22 19:11:00 Test Item Value Reference Range Interpretation Comments Alanine Aminotransferase (ALT/SGPT) 13 0-55 (test code = 1742-6) [facility] CenterTotal Trofxui0794-98-63 19:11:00 Test Item Value Reference Range Interpretation Comments Total Protein (test code = 2885-2) 7.0 6.5-8.1 [facility] CenterAlbumin2018-07-28 19:11:00 Test Item Value Reference Range Interpretation Comments Albumin (test code = 1751-7) 3.8 3.5-5.0 [facility] CenterGlobulin2018-07-28 19:11:00 Test Item Value Reference Range Interpretation Comments Globulin (test code = 05505-3) 3.2 2.3-3.5 [facility] CenterAlbumin/Globulin Omoae9546-96-00 19:11:00 Test Item Value Reference Range Interpretation Comments Albumin/Globulin Ratio (test code = 1.2 0.8-2.0 1759-0) [facility] CenterAlkaline Oimadusyxlv1776-37-09 19:11:00 Test Item Value Reference Range Interpretation Comments Alkaline Phosphatase (test code = 102 40150 6768-6) [facility] CenterCT BRAIN [id number] 18:04:00 [facility] [address] [address] Patient Name: HAYLEY LI MR #: [id number] : 1955 Age/Sex: 62/F Req #: [id number] Adm Physician: Ordered by: LEROY CEDEÑO MD Report #: [id number] Location: ER Room/Bed: Procedure: [id number] CT/CT BRAIN WO Exam Date: 11/22/17 Exam Time: 1719 REPORT STATUS: Signed ADDENDUM #1 Dose modulation, iterative reconstruction, and/or weight based adjustment of the mA/kV was utilized toreduce the radiation dose to as low as reasonably achievable. Signed by: DR Yuan Davis M.D. on 12/23/2017 7:38 PM ORIGINAL REPORT History:Headache, dizzinessComparison studies:CT head 05/22/2008 Technique: Axial images were obtained from the skull base to the vertex. Coronal and sagittal images reconstructed from the axial data. Intravenous contrast: None Findings: Scalp/skull: No abnormalities. Extra-axial spaces: No masses. No fluid collections. Brain sulci: Mildly prominent. Ventricles: Mild compensatory dilatation. No hydrocephalus. Parenchyma: Again seen cortically based hypodensity with volume loss of the left anterior frontal pole. Few hypodensities in the supratentorial white matter are small vessel ischemic changes. No masses, hemorrhage, acute or chronic cortical vascular insults. Sellar/suprasellar region: No abnormalities. Craniocervical junction: Patent foramen magnum. No Chiari one malformation. Incidental findings: Atherosclerotic calcifications in the carotid siphons. Impression: No acute abnormalities. Chronic findings: 1. Mild age-related generalized volume loss. 2. Mild supratentorial white matter small vessel ischemic changes. 3. 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 on 11/22/2017 6:08 PM Dictated By: YUAN ZAMUDIO MD 193 Transcribed By: KEY on 11/22/171807 COPY TO: LEROY CEDEÑO MDite Blood [id number] 17:48:00 Test Item Value Reference Range Interpretation Comments White Blood Count (test code = 6690-2) 6.01 4.8-10.8 [facility] [id number] 17:48:00 Test Item Value Reference Range Interpretation Comments Red Blood Count (test code = 789-8) 4.09 3.6-5.1 [facility]oglobin2018-07-28 17:48:00 Test Item Value Reference Range Interpretation Comments Hemoglobin (test code = 68507-9) 12.6 12.0-16.0 [facility]Hematocrit2018-07-28 17:48:00 Test Item Value Reference Range Interpretation Comments Hematocrit (test code = 4544-3) 37.8 34.2-44.1 [facility] Corpuscular [id number] 17:48:00 Test Item Value Reference Range Interpretation Comments Mean Corpuscular Volume (test code = 92.4 81-99 787-2) [facility] Corpuscular [id number] 17:48:00 Test Item Value Reference Range Interpretation Comments Mean Corpuscular Hemoglobin (test code 30.8 28-32 = 785-6) [facility] Hemoglobin Concent 2017-11-22 17:48:00 Test Item Value Reference Range Interpretation Comments Mean Corpuscular Hemoglobin Concent 33.3 31-35 (test code = 786-4) [facility] Cell Distribution [id number] 17:48:00 Test Item Value Reference Range Interpretation Comments Red Cell Distribution Width (test code 13.3 11.7-14.4 = 03251-2) [facility] CenterPlatelet [id number] 17:48:00 Test Item Value Reference Range Interpretation Comments Platelet Count (test code = 777-3) 238 140-360 [facility] CenterNeutrophils (%) (Auto)2017-11-22 17:48:00 Test Item Value Reference Range Interpretation Comments Neutrophils (%) (Auto) (test code = 57.8 38.7-80.0 69048-6) [facility] CenterLymphocytes (%) (Auto)2017-11-22 17:48:00 Test Item Value Reference Range Interpretation Comments Lymphocytes (%) (Auto) (test code = 31.3 18.0-39.1 736-9) [facility] CenterMonocytes (%) (Auto)2017-11-22 17:48:00 Test Item Value Reference Range Interpretation Comments Monocytes (%) (Auto) (test code = 8.0 4.4-11.3 5905-5) [facility] CenterEosinophils (%) (Auto)2017-11-22 17:48:00 Test Item Value Reference Range Interpretation Comments Eosinophils (%) (Auto) (test code = 1.7 0.0-6.0 713-8) [facility]Basophils (%) (Auto)2017-11-22 17:48:00 Test Item Value Reference Range Interpretation Comments Basophils (%) (Auto) (test code = 1.0 0.0-1.0 706-2) [facility] CenterIM GRANULOCYTES %2017-11-22 17:48:00 Test Item Value Reference Range Interpretation Comments IM GRANULOCYTES % (test code = IM 0.2 0.0-1.0 GRANULOCYTES %) [facility] CenterNeutrophils # (Auto)2017-11-22 17:48:00 Test Item Value Reference Range Interpretation Comments Neutrophils # (Auto) (test code = 3.5 2.1-6.9 751-8) [facility] CenterLymphocytes # (Auto)2017-11-22 17:48:00 Test Item Value Reference Range Interpretation Comments Lymphocytes # (Auto) (test code = 1.9 1.0-3.2 97400-3) [facility] CenterMonocytes # (Auto)2017-11-22 17:48:00 Test Item Value Reference Range Interpretation Comments Monocytes # (Auto) (test code = 742-7) 0.5 0.2-0.8 [facility] CenterEosinophils # (Auto)2017-11-22 17:48:00 Test Item Value Reference Range Interpretation Comments Eosinophils # (Auto) (test code = 0.1 0.0-0.4 711-2) [facility] CenterBasophils # (Auto)2017-11-22 17:48:00 Test Item Value Reference Range Interpretation Comments Basophils # (Auto) (test code = 704-7) 0.1 0.0-0.1 [facility] CenterAbsolute Immature Granulocyte (auto 2017-11-22 17:48:00 Test Item Value Reference Range Interpretation Comments Absolute Immature Granulocyte (auto 0.01 0-0.1 (test code = Absolute Immature Granulocyte (auto) [facility]
--- NOTE | 2020-09-26 08:10 | RAD REPORT ---
EXAM DESCRIPTION: Rakesh Single View09/26/2020 7:59 am CLINICAL HISTORY: Cough COMPARISON: none FINDINGS: The lungs appear clear of acute infiltrate. The heart is normal size IMPRESSION: No acute abnormalities displayed
[2020-09-26 09:02] LABS: Absolute Lymphocytes (CBC) 2.8 K/uL (0.7-4.9); Basophils % 0.7 % (0-1.3); Hematocrit 35.3 % (36.0-45.0); Lymphocytes % 30.4 % (15.3-44.8); MPV 8.9 fL (7.6-11.3); RBC Red Blood Cell Count 3.88 M/uL (3.86-4.86)
[2020-09-26 09:05] LABS: Protime INR 0.96
[2020-09-26 09:18] LABS: ALT/SGPT 25 U/L (12-78); AST/SGOT 23 U/L (15-37); Albumin 3.2 g/dL (3.4-5.0); Alkaline Phosphatase 104 U/L (45-117); BUN Blood Urea Nitrogen 22 mg/dL (7-18); Bicarbonate 24 mmol/L (21-32); Bilirubin Direct 0.2 mg/dL (0-0.2); Bilirubin Total 0.6 mg/dL (0.2-1.0); Glucose Level 92 mg/dL (74-106); Magnesium 2.6 mg/dL (1.8-2.4); NT PRO-BNP 62 pg/mL (<125); Potassium 3.8 mmol/L (3.5-5.1); Protein, Total 6.8 g/dL (6.4-8.2); Sodium Level 141 mmol/L (136-145); Troponin (Emerg Dept Use Only) < 0.02 ng/mL (0.0-0.045)
--- NOTE | 2020-09-26 10:02 | RAD REPORT ---
EXAM DESCRIPTION: CT - Chest For Pe Angio - 09/26/2020 9:52 am CLINICAL HISTORY: Cough COMPARISON: None. TECHNIQUE: Dynamically enhanced axial 3 mm thick images of the chest were obtained during administra tion of <100> mL Isovue 370 IV contrast. Coronal and oblique reconstruction images were generated and reviewed. Exam utilizes a protocol for optimal evaluation of pulmonary arterial tree. Maximum intensity projections 3D imaging was utilized All CT scans are performed using dose optimization technique as appropriate and may include automated exposure control or mA/KV adjustment according to patient size. FINDINGS: A pulmonary embolus is not seen. A thoracic aortic aneurysm is not noted. A pleural effusion is not seen. A pericardial effusion is not seen. A lung consolidation is not present. IMPRESSION: Negative for a pulmonary embolism.
[2020-09-26] MEDS ORDERED: IPRATROPIUM BROM 0.5MG/2.5ML ONE (10:14)
[2020-09-26] MEDS ORDERED: METHYLPREDNISOLONE 125 MG INJ ONE (10:14)
[2020-09-26] MEDS ORDERED: ASPIRIN 81 MG CHEWABLE TABLET ONE (10:14)
[2020-09-26] MEDS ORDERED: LEVALBUTEROL 1.25 MG/3 ML NEB ONE ×2 (10:14→11:38)
[2020-09-26] MEDS ORDERED: ENOXAPARIN 40 MG/0.4 ML SQ ONE (10:15)
[2020-09-26] MEDS ORDERED: FAMOTIDINE 20 MG/2 ML VIAL IV ONE (10:15)
[2020-09-26] MEDS ORDERED: NA CHLORIDE 0.9% 500 ML ONE (10:15)
--- NOTE | 2020-09-26 10:53 | EDPHYS ---
Physician Documentation [facility] Name: Kelsi Emerson Age: 65 yrs Sex: Female : 1955 Arrival Date: 09/26/2020 Time: 06:45 Bed 20 Private MD: ED Physician Chip Ann HPI: 09/26 08:57 This 65 yrs old Female presents to ER via Ambulatory with complaints of yandy Non-Productive Cough, Painful Cough. 08:57 The patient or guardian reports airway noise, cough, difficulty breathing. Onset: The yandy symptoms/episode began/occurred 3 day(s) ago. Severity of symptoms: At their worst the symptoms were moderate, in the emergency department the symptoms are actually worse, mildly. Modifying factors: The symptoms are alleviated by nothing, the symptoms are aggravated by exertion, talking. Associated signs and symptoms: The patient has no apparent associated signs or symptoms. The patient has not experienced similar symptoms in the past. Historical: - Allergies: 07:44 No Known Allergies; ph - PMHx: 07:44 Hypertension; ph - Immunization history:: Client reports receiving the 2nd dose of the Covid vaccine, Flu vaccine is up to date. - Social history:: Smoking status: Patient denies any tobacco usage or history of. ROS: 08:58 Eyes: Negative for injury, pain, redness, and discharge, ENT: Negative for injury, yandy pain, and discharge, Neck: Negative for injury, pain, and swelling, Abdomen/GI: Negative for abdominal pain, nausea, vomiting, diarrhea, and constipation, Back: Negative for injury and pain, : Negative for injury, bleeding, discharge, and swelling, MS/Extremity: Negative for injury and deformity, Skin: Negative for injury, rash, and discoloration, Neuro: Negative for headache, weakness, numbness, tingling, and seizure, Psych: Negative for depression, anxiety, suicide ideation, homicidal ideation, and hallucinations, Allergy/Immunology: Negative for hives, rash, and allergies, Endocrine: Negative for neck swelling, polydipsia, polyuria, polyphagia, and marked weight changes, Hematologic/Lymphatic: Negative for swollen nodes, abnormal bleeding, and unusual bruising. 08:58 Constitutional: Positive for chills, fever, malaise. 08:58 Eyes: Positive for 08:58 Cardiovascular: Positive for chest pain, with cough, of the chest. 08:58 Respiratory: Positive for cough, shortness of breath, wheezing, expiratory. Exam: 08:58 Constitutional: This is a well developed, well nourished patient who is awake, alert, yandy and in no acute distress. Head/Face: Normocephalic, atraumatic. Eyes: Pupils equal round and reactive to light, extra-ocular motions intact. Lids and lashes normal. Conjunctiva and sclera are non-icteric and not injected. Cornea within normal limits. Periorbital areas with no swelling, redness, or edema. ENT: Nares patent. No nasal discharge, no septal abnormalities noted. Tympanic membranes are normal and external auditory canals are clear. Oropharynx with no redness, swelling, or masses, exudates, or evidence of obstruction, uvula midline. Mucous membranes moist. Neck: Trachea midline, no thyromegaly or masses palpated, and no cervical lymphadenopathy. Supple, full range of motion without nuchal rigidity, or vertebral point tenderness. No Meningismus. Chest/axilla: Normal chest wall appearance and motion. Nontender with no deformity. No lesions are appreciated. Cardiovascular: Regular rate and rhythm with a normal S1 and S2. No gallops, murmurs, or rubs. Normal PMI, no JVD. No pulse deficits. Abdomen/GI: Soft, non-tender, with normal bowel sounds. No distension or tympany. No guarding or rebound. No evidence of tenderness throughout. Back: No spinal tenderness. No costovertebral tenderness. Full range of motion. Female : Normal external genitalia. Skin: Warm, dry with normal turgor. Normal color with no rashes, no lesions, and no evidence of cellulitis. MS/ Extremity: Pulses equal, no cyanosis. Neurovascular intact. Full, normal range of motion. Neuro: Awake and alert, GCS 15, oriented to person, place, time, and situation. Cranial nerves II-XII grossly intact. Motor strength 5/5 in all extremities. Sensory grossly intact. Cerebellar exam normal. Normal gait. Psych: Awake, alert, with orientation to person, place and time. Behavior, mood, and affect are within normal limits. 08:58 Respiratory: mild respiratory distress is noted, Respirations: labored breathing, is not present, Breath sounds: decreased breath sounds, that are mild, rhonchi, that are mild, are scattered, wheezing: expiratory is heard diffusely, Respiratory rate: 18 09:02 ECG was reviewed by the Attending Physician. [facility] Vital Signs: 07:36 BP 110 / 72; Pulse 73; Resp 20; Temp 98.4(O); Pulse Ox 100% on R/A; Weight 50.8 kg; ph Height 4 ft. 11 in. (149.86 cm); 08:14 BP 106 / 74; Pulse 77; Resp 18; Pulse Ox 100% on R/A; ph 07:36 Body Mass Index 22.62 (50.80 kg, 149.86 cm) ph MDM: 08:11 Patient medically screened. [facility] 09:00 Differential diagnosis: asthma, Bronchitis CHF exacerbation, Chronic Obstructive yandy Pulmonary Disease pneumonia, pulmonary edema, Pulmonary Embolism reactive airway disease, Sepsis Unstable Angina. Antibiotic administration: Rocephin and Zithromax given. The patient's Wells Deep Vein Thrombosis Score was calculated as follows: Total Score: 0-2 Pts- Low Risk. Differential Diagnosis: Bronchitis Influenza Upper Respiratory Infection Sinusitis Asthma Exacerbation Pneumonia. The patient's pulmonary embolism risk score was calculated as follows: Total Score: 0-2 points. This patient was found to be at low risk for a pulmonary embolism by using the Well's assessment criteria. Immunization status: Pneumococcal vaccine: within last 5 years. Influenza vaccine: within last 5 years. Data reviewed: vital signs, nurses notes, lab test result(s), EKG, radiologic studies, CT scan, plain films. 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 Test interpretation: by ED physician or midlevel provider: ECG, plain radiologic studies. Counseling: I had a detailed discussion with the patient and/or guardian regarding: the historical points, exam findings, and any diagnostic results supporting the discharge/admit diagnosis, lab results, radiology results. 09/26 08:56 Order name: Blood Culture Adult (2) [facility] 09/26 08:56 Order name: Basic Metabolic Panel; Complete Time: 10:18 EDFL 09/26 08:56 Order name: Liver (Hepatic) Function; Complete Time: 10:18 EDFL 09/26 08:56 Order name: Troponin (Emerg Dept Use Only); Complete Time: 10:18 EDFL 09/26 08:56 Order name: NT PRO-BNP; Complete Time: 10:18 EDMS 09/26 07:23 Order name: CXR XRAY; Complete Time: 09:02 tw4 09/26 08:56 Order name: Magnesium; Complete Time: 10:18 EDMS 09/26 08:56 Order name: CBC with Automated Diff; Complete Time: 10:18 EDMS 09/26 08:56 Order name: Protime (+INR); Complete Time: 10:18 EDMS 09/26 09:12 Order name: Chest For Pe Angio; Complete Time: 10:18 EDMS 09/26 12:14 Order name: COVID-19/FLU A+B EDMS 09/26 16:39 Order name: Troponin I EDMS 09/26 17:01 Order name: Hemoglobin A1c EDMS 09/26 08:15 Order name: EKG; Complete Time: 09:15 yandy 09/26 08:15 Order name: Cardiac monitoring; Complete Time: 08:19 yandy 09/26 08:15 Order name: EKG - Nurse/Tech; Complete Time: 08:19 yandy 09/26 08:15 Order name: IV Saline Lock; Complete Time: 09:47 ayndy 09/26 08:15 Order name: Labs collected and sent; Complete Time: 09:47 yandy 09/26 08:15 Order name: O2 Per Protocol; Complete Time: 08:19 yandy 09/26 08:15 Order name: O2 Sat Monitoring; Complete Time: 08:19 yandy 09/26 12:18 Order name: Diet Regular; Complete Time: 12:18 ph EC:02 Rate is 68 beats/min. Rhythm is regular. QRS [place] is Normal. [place] interval is normal. QRS yandy interval is normal. QT interval is prolonged at 464 msec. No Q waves. T waves are Normal. No ST changes noted. Clinical impression: NSR w/ Non-specific ST/T Changes and No evidence of ischemia. Interpreted by me. Reviewed by me. Administered Medications: 10:15 Drug: Aspirin 81 mg Route: PO; ph 19:35 Follow up: Response: No adverse reaction ph 10:15 Drug: NS 0.9% 1000 ml Route: IV; Rate: 125 ml/hr; Site: left antecubital; ph 19:35 Follow up: Response: No adverse reaction; IV Status: Infusion continued upon admission ph 10:15 Drug: SOLU-Medrol (methylPrednisoLONE) 125 mg Route: IVP; Site: left antecubital; ph 10:30 Follow up: Response: No adverse reaction ph 10:15 Drug: Pepcid (famotidine) 20 mg Route: IVP; Site: left antecubital; ph 12:00 Follow up: Response: No adverse reaction ph 10:17 Drug: Xopenex (levalbuterol) 3.75 mg Route: Inhalation; ph 12:00 Follow up: Response: No adverse reaction ph 10:17 Drug: AtroVENT (ipratropium) Aerosol 0.5 mg Route: Inhalation; ph 12:00 Follow up: Response: No adverse reaction ph 11:40 Drug: Tussionex Pennkinetic ER (chlorpheniramine-hydrocodone) 5 ml Route: PO; ph 13:00 Follow up: Response: No adverse reaction; Marked relief of symptoms ph 11:42 Drug: Decadron - Dexamethasone 6 mg Route: IVP; Site: left antecubital; ph 12:00 Follow up: Response: No adverse reaction ph 11:49 Drug: Lovenox (enoxaparin) 50 mg Route: Sub-Q; Site: right lower abdomen; ph 12:00 Follow up: Response: No adverse reaction ph 15:17 Not Given (Patient Refused): Xopenex (levalbuterol) 2.5 mg Inhalation once ph Disposition: 09/26/20 10:53 Hospitalization ordered by Ward Joiner for Observation. Preliminary diagnosis are Dyspnea, Chest pain on breathing, Bronchitis, not specified as acute or chronic. - Bed requested for Telemetry/MedSurg (Inpatient). - Status is Observation. ph - Condition is Stable. - Problem is new. - Symptoms have improved. Signatures: Dispatcher [employer] EDMS Chip Ann MD MD cha Martinez, Eric em1 Cecilia Coburn, RN RN aa5 Aleisha Dumont, RICKY RN ph Gelacio Chappell, RN RN ja1 Corrections: (The following items were deleted from the chart) 09:19 09:15 Chest For PE Angio+CT.RAD.BRZ ordered. EDMS EDMS 10:22 09:15 CBC+H.LAB.BRZ ordered. EDMS EDMS 10:23 09:15 BASIC METABOLIC PANEL+C.LAB.BRZ ordered. EDMS EDMS 10:23 09:15 HEPATIC FUNCTION+C.LAB.BRZ ordered. EDMS EDMS 10:23 09:15 MAGNESIUM+C.LAB.BRZ ordered. EDFL EDMS 10:23 09:15 PROBNP+C.LAB.BRZ ordered. EDMS EDMS 10:23 09:15 PROTIME (+INR)+COAG.LAB.BRZ ordered. EDMS EDMS 10:23 09:15 TROPONIN (EMERG DEPT USE ONLY)+C.LAB.BRZ ordered. EDFL EDMS 11:19 09:15 CORONAVIRUS+MR.LAB.BRZ ordered. EDMS EDMS 11:20 09:15 Influenza Screen (A \T\ B)+BA.LAB.BRZ ordered. EDFL EDMS 14:38 10:53 Hospitalization Ordered by Ward Joiner for Observation. Preliminary diagnosis em1 is Dyspnea; Chest pain on breathing; Bronchitis, not specified as acute or chronic. Bed requested for Telemetry/MedSurg (observation). Status is Observation. Condition is Stable. Problem is new. Symptoms have improved. yandy 15:55 14:38 09/26/2020 10:53 Hospitalization Ordered by Ward Joiner for Observation. ja1 Preliminary diagnosis is Dyspnea; Chest pain on breathing; Bronchitis, not specified as acute or chronic. Bed requested for [facility]. Status is Observation. Condition is Stable. Problem is new. Symptoms have improved. em1 17:56 15:55 09/26/2020 10:53 Hospitalization Ordered by Ward Joiner for Observation. ja1 Preliminary diagnosis is Dyspnea; Chest pain on breathing; Bronchitis, not specified as acute or chronic. Bed requested for Telemetry/MedSurg (observation). Status is Observation. Condition is Stable. Problem is new. Symptoms have improved. ja1 18:30 17:56 09/26/2020 10:53 Hospitalization Ordered by Ward Joiner for Observation. aa5 Preliminary diagnosis is Dyspnea; Chest pain on breathing; Bronchitis, not specified as acute or chronic. Bed requested for [facility] ER HOLD. Status is Observation. Condition is Stable. Problem is new. Symptoms have improved. ja1 18:41 18:30 09/26/2020 10:53 Hospitalization Ordered by Ward Joiner for Observation. ph Preliminary diagnosis is Dyspnea; Chest pain on breathing; Bronchitis, not specified as acute or chronic. Bed requested for Telemetry/MedSurg (Inpatient). Status is Observation. Condition is Stable. Problem is new. Symptoms have improved. aa5
--- NOTE | 2020-09-26 10:53 | ER ---
Nurse's Notes [facility] Name: Kelsi Emerson Age: 65 yrs Sex: Female : 1955 Arrival Date: 09/26/2020 Time: 06:45 Bed 20 Private MD: Diagnosis: Dyspnea;Chest pain on breathing;Bronchitis, not specified as acute or chronic Presentation: 09/26 07:36 Chief complaint: Patient states: Painful, non-productive cough x 3-4 days, reports pain ph in mid-sternal area and back, also reports some SOB, denies fever, N/V. Coronavirus screen: Client denies travel out of the [place] in the last 14 days. cough unrelated to allergies, shortness of breath, Client presents with at least one sign or symptom that may indicate coronavirus-19. Standard/surgical mask placed on the client. Ebola Screen: No symptoms or risks identified at this time. Initial Sepsis Screen: Does the patient meet any 2 criteria? No. Patient's initial sepsis screen is negative. Does the patient have a suspected source of infection? No. Patient's initial sepsis screen is negative. Risk Assessment: Do you want to hurt yourself or someone else? Patient reports no desire to harm self or others. Onset of symptoms was September 26, 2020. 07:36 Method Of Arrival: Ambulatory ph 07:36 Acuity: MINISTERIO 3 ph Historical: - Allergies: 07:44 No Known Allergies; ph - PMHx: 07:44 Hypertension; ph - Immunization history:: Client reports receiving the 2nd dose of the Covid vaccine, Flu vaccine is up to date. - Social history:: Smoking status: Patient denies any tobacco usage or history of. Screenin:44 Abuse screen: Denies threats or abuse. Denies injuries from another. Nutritional ph screening: No deficits noted. Tuberculosis screening: No symptoms or risk factors identified. Fall Risk None identified. Assessment: 08:14 General: Appears in no apparent distress. uncomfortable, slender, well groomed, ph Behavior is calm, cooperative, appropriate for age, Denies fever. Pain: Complains of pain in back and chest. Neuro: Level of Consciousness is awake, alert, obeys commands, Oriented to person, place, time, situation. Cardiovascular: Reports chest pain, shortness of breath, Capillary refill < 3 seconds in bilateral fingers Patient's skin is warm and dry. Chest pain is located in substernal area. Respiratory: Reports cough that is non-productive, pain with cough Airway is patent Respiratory effort is even, unlabored, Respiratory pattern is regular, symmetrical. GI: No signs and/or symptoms were reported involving the gastrointestinal system. Derm: Skin is intact, Skin is pink, warm \T\ dry. Musculoskeletal: Circulation, motion, and sensation intact. Range of motion: intact in all extremities. 09:30 Reassessment: Patient appears in no apparent distress at this time. Patient is alert, ph oriented x 3, equal unlabored respirations, skin warm/dry/pink. 10:30 Reassessment: Patient appears in no apparent distress at this time. Patient and/or ph family updated on plan of care and expected duration. Pain level reassessed. Patient is alert, oriented x 3, equal unlabored respirations, skin warm/dry/pink. 12:00 Reassessment: Patient appears in no apparent distress at this time. Patient and/or ph family updated on plan of care and expected duration. Pain level reassessed. Patient is alert, oriented x 3, equal unlabored respirations, skin warm/dry/pink. 13:00 Reassessment: Patient appears in no apparent distress at this time. Patient and/or ph family updated on plan of care and expected duration. Pain level reassessed. Patient is alert, oriented x 3, equal unlabored respirations, skin warm/dry/pink. Pt eating lunch, tolerating well. 14:00 Reassessment: Patient appears in no apparent distress at this time. Patient and/or ph family updated on plan of care and expected duration. Pain level reassessed. Patient is alert, oriented x 3, equal unlabored respirations, skin warm/dry/pink. Vital Signs: 07:36 BP 110 / 72; Pulse 73; Resp 20; Temp 98.4(O); Pulse Ox 100% on R/A; Weight 50.8 kg; ph Height 4 ft. 11 in. (149.86 cm); 08:14 BP 106 / 74; Pulse 77; Resp 18; Pulse Ox 100% on R/A; ph 07:36 Body Mass Index 22.62 (50.80 kg, 149.86 cm) ED Course: 06:45 Patient arrived in ED. es 07:36 Aleisha Dumont, RN is Primary Nurse. ph 07:39 Triage completed. ph 07:44 Arm band placed on Patient placed in an exam room, in the treatment room, on pulse ph oximetry. 07:44 Patient has correct armband on for positive identification. Placed in gown. Bed in low ph position. Call light in reach. Side rails up X2. patient monitor on. Pulse ox on. NIBP on. Door closed. Noise minimized. Warm blanket given. 07:59 CXR XRAY In Process Unspecified. EDMS 08:11 Chip Ann MD is Attending Physician. yandy 08:22 EKG done, by ED staff, reviewed by Chip Ann MD. dh3 08:45 Inserted saline lock: 20 gauge in left antecubital area, using aseptic technique. Blood dh3 collected. 09:00 First set of blood cultures drawn by nm. dh3 09:52 Chest For Pe Angio In Process Unspecified. EDMS 10:51 Ward Joiner is Hospitalizing Provider. yandy 14:50 No provider procedures requiring assistance completed. Patient admitted, IV remains in ph place. Administered Medications: 10:15 Drug: Aspirin 81 mg Route: PO; ph 19:35 Follow up: Response: No adverse reaction ph 10:15 Drug: NS 0.9% 1000 ml Route: IV; Rate: 125 ml/hr; Site: left antecubital; ph 19:35 Follow up: Response: No adverse reaction; IV Status: Infusion continued upon admission ph 10:15 Drug: SOLU-Medrol (methylPrednisoLONE) 125 mg Route: IVP; Site: left antecubital; ph 10:30 Follow up: Response: No adverse reaction ph 10:15 Drug: Pepcid (famotidine) 20 mg Route: IVP; Site: left antecubital; ph 12:00 Follow up: Response: No adverse reaction ph 10:17 Drug: Xopenex (levalbuterol) 3.75 mg Route: Inhalation; ph 12:00 Follow up: Response: No adverse reaction ph 10:17 Drug: AtroVENT (ipratropium) Aerosol 0.5 mg Route: Inhalation; ph 12:00 Follow up: Response: No adverse reaction ph 11:40 Drug: Tussionex Pennkinetic ER (chlorpheniramine-hydrocodone) 5 ml Route: PO; ph 13:00 Follow up: Response: No adverse reaction; Marked relief of symptoms ph 11:42 Drug: Decadron - Dexamethasone 6 mg Route: IVP; Site: left antecubital; ph 12:00 Follow up: Response: No adverse reaction ph 11:49 Drug: Lovenox (enoxaparin) 50 mg Route: Sub-Q; Site: right lower abdomen; ph 12:00 Follow up: Response: No adverse reaction ph 15:17 Not Given (Patient Refused): Xopenex (levalbuterol) 2.5 mg Inhalation once ph Outcome: 10:53 Decision to Hospitalize by Provider. yandy 14:50 Admitted to ER Hold. Please see [facility] for further documentation. ph 14:50 Condition: stable 14:50 Instructed on the need for admit. 18:41 Patient left the ED. ph Signatures: Dispatcher [employer] Chip Herrera MD MD cha Salyer, Aleisha Brito RN RN [facility]
[2020-09-26] MEDS ORDERED: HYDROCODONE/CHLORPHEN 5 ML/OSYR ONE (11:37)
[2020-09-26] MEDS ORDERED: dexAMETHasone 10 MG/ML VIAL ONE (11:38)
[2020-09-26 12:14] LABS: SARS-COV-2 RT PCR NEGATIVE (NEGATIVE)
[2020-09-26] MEDS ORDERED: ONDANSETRON 4 MG/2 ML VIAL IV PRN (14:30)
[2020-09-26] MEDS ORDERED: ALBUTEROL 2.5 MG/3 ML NEB SOL NEB PRN (14:30)
[2020-09-26] MEDS ORDERED: ACETAMINOPHEN 500 MG TAB PO PRN (14:30)
[2020-09-26] MEDS ORDERED: TRAMADOL HCL 50 MG TAB PO PRN (14:32)
[2020-09-26] MEDS ORDERED: GUAIFENESIN/DM 5 ML UCUP PO PRN (14:33)
--- NOTE | 2020-09-26 14:37 | P.HP ---
Certification for Inpatient Patient admitted to: Observation With expected LOS: <2 Midnights Patient will require the following post-hospital care: None Practitioner: I am a practitioner with admitting privileges, knowledge of patient current condition, hospital course, and medical plan of care. Services: Services provided to patient in accordance with Admission requirements found in Title 42 Section 412.3 of the Code of Federal Regulations Patient History Date of Service: 09/26/20 Reason for admission: Cough, shortness of breath History of Present Illness: Patient is a 55-year-old female with a past medical history significant for hypertension who presents with complaint of cough and shortness of breath onset 4 days ago. Patient reports associated signs and symptoms of fatigue, body aches, loss of taste, loss of appetite, loss of smell, chest tightness and sore throat. Patient reported that she has been having episodes of dizziness for cristy te some time now. Patient denies any other signs and symptoms. Symptoms are aggravated or relieved by nothing. Patient decided to present to the hospital due to worsening symptoms. Allergies No Known Allergies Allergy (Unverified 09/26/20 09:10) Home medications list reviewed: Yes - Past Medical/Surgical History Diabetic: No -: HTN - Social History Smoking Status: Never smoker Alcohol use: No CD- Drugs: No Caffeine use: No Place of Residence: Home Review of Systems General: Weakness, Malaise, Other (Loss of appetite, Stop) Eyes: Unremarkable ENT: Throat Pain, Other (Loss of smell,Loss of taste ) Respiratory: Cough, Shortness of Breath, Other (Chest tightness.) Cardiovascular: Other (Chest tightness. Toggle due on) Gastrointestinal: Unremarkable Genitourinary: Unremarkable Musculoskeletal: Unremarkable Integumentary: Unremarkable Neurological: Weakness, Other (dizziness.) Lymphatics: Unremarkable Physical Examination - Physical Exam General: Alert, In no apparent distress, Oriented x3 HEENT: Atraumatic, PERRLA, Mucous membr. moist/pink, EOMI, Sclerae nonicteric Neck: Supple, 2+ carotid pulse no bruit, No LAD, Without JVD or thyroid abnormality Respiratory: Clear to auscultation bilaterally, Diminished Cardiovascular: No edema, Regular rate/rhythm, Normal S1 S2 Capillary refill: Brisk Gastrointestinal: Normal bowel sounds, Soft and benign, No tenderness Musculoskeletal: No clubbing, No tenderness Integumentary: No rashes, No significant lesion, No tenderness/swelling Neurological: Normal gait, Normal speech, Normal strength at 5/5 x4 extr, Normal tone, Normal affect Lymphatics: No axilla or inguinal lymphadenopathy External genitalia: Deferred Rectal: Deferred - Studies Laboratory Data (last 24 hrs) 09/26/20 08:45: PT 11.0, INR 0.96 09/26/20 08:45: WBC 9.30, Hgb 11.9 L, Hct 35.3 L, Plt Count 168 09/26/20 08:45: Sodium 141, Potassium 3.8, BUN 22 H, Creatinine 0.94, Glucose 92, Magnesium 2.6 H, Total Bilirubin 0.6, AST 23, ALT 25, Alkaline Phosphatase 104 09/26/20 08:15: PT Cancelled, INR Cancelled 09/26/20 08:15: WBC Cancelled, Hgb Cancelled, Hct Cancelled, Plt Count Cancelled 09/26/20 08:15: Sodium Cancelled, Potassium Cancelled, BUN Cancelled, Creatinine Cancelled, Glucose Cancelled, Magnesium Cancelled, Total Bilirubin Cancelled, AST Cancelled, ALT Cancelled, Alkaline Phosphatase Cancelled Assessment and Plan - Plan --Shortness of breath. CT Angiogram PE protocol unremarkable for PE or any other abnormality. Flu and Covid 19 infection ruled out. Continue O2 therapy as needed -- Acute Bronchitis. Patient placed on steroids, antitussives and neb treatment with albuterol prn -- Hypertension. Stable. Will manage blood pressure with hydralazine p.r.n. --Cough. Continue antitussives. --Acute kidney insufficiency. Continue IV hydration. Will continue to monitor renal functions. --DVT prophylaxis with Lovenox subQ Discharge Plan: Home Plan to discharge in: 48 Hours - Advance Directives Does patient have a Living Will: No Does patient have a Durable POA for Healthcare: No - Code Status/Comfort Care Code Status Assessed: Yes Code Status: Full Code Critical Care: No
[2020-09-26] MEDS ORDERED: HYDRALAZINE HCL 20 MG/ML VIAL IV PRN (17:19)
[2020-09-26 19:32] VITALS: BMI 22.4
[2020-09-26] MEDS: NA CHLORIDE 0.9% 1,000 ML IV SCH (19:47)
[2020-09-26] MEDS: METHYLPREDNISOLONE 40 MG INJ IV SCH ×2 (19:47→23:58)
[2020-09-27] MEDS ORDERED: MELATONIN 5 MG TABLET PO PRN (00:21)
[2020-09-27 03:31] LABS: Basophils % 0.3 % (0-1.3); Hematocrit 30.9 % (36.0-45.0); Lymphocytes % 13.5 % (15.3-44.8); MPV 9.1 fL (7.6-11.3); RBC Red Blood Cell Count 3.41 M/uL (3.86-4.86)
[2020-09-27 04:20] LABS: Potassium 4.5 mmol/L (3.5-5.1)
[2020-09-27 05:40] LABS: Urine Appearance CLEAR (Clear); Urine Bilirubin NEGATIVE (Negative); Urine Blood NEGATIVE (Negative); Urine Color YELLOW (Yellow); Urine Glucose 1+ (Negative); Urine Protein NEGATIVE (Negative); Urine Specific Gravity >=1.030 (1.005-1.030)
[2020-09-27 05:44] LABS: Urine Microscopic Reflex ORDER UMIC
[2020-09-27 05:57] LABS: Urine Bacteria LOADED /HPF (<20)
[2020-09-27 05:58] LABS: Urine RBC <5 /HPF (NONE SEEN)
[2020-09-27] MEDS: NA CHLORIDE 0.9% 1,000 ML IV SCH (06:20)
[2020-09-27] MEDS: METHYLPREDNISOLONE 40 MG INJ IV SCH (07:21)
[2020-09-27 08:05] VITALS: TEMP 97.7
[2020-09-27] MEDS ORDERED: ENOXAPARIN 40 MG/0.4 ML SQ SCH (09:00)
[2020-09-27] MEDS ORDERED: PNEUMOCOCCAL VACCINE 0.5 ML IMVAC ONE (09:00)
[2020-09-27 11:59] VITALS: O2SAT 97
--- NOTE | 2020-09-27 12:00 | EKG ---
Test Date: 2020-09-26 Test Time: 08:18:11 [employer] Supervisor: KASI MEASUREMENT RESULTS: Intervals: Rate: 68 HI: 122 QRSD: 76 QT: 464 QTc: 493 [place]: P: 50 HI: 122 QRS: 72 T: 94 INTERPRETIVE STATEMENTS: Normal sinus rhythm ST abnormality, possible digitalis effect Prolonged QT Abnormal ECG No previous ECG available for comparison Electronically Signed On 09-27-20 11:54:17 CDT by Marco A Mast
--- NOTE | 2020-09-27 12:11 | P.DS ---
Admission Date: 09/26/20 Discharge Date: 09/27/20 Disposition: ROUTINE DISCHARGE Discharge Condition: FAIR Reason for Admission: Cough, shortness of breath - Problems (1) Acute bronchitis Current Visit: Yes Status: Acute (2) Hypertension Current Visit: Yes Status: Acute (3) Dehydration Current Visit: Yes Status: Acute Brief History of Present Illness: 65-year-old woman with a history of hypertension presented to the emergency department with a complaint of cough, shortness of breath and wheezing of 4 days duration. Symptoms associated with dizziness and generalized weakness. Chest x-ray in the emergency department shows no acute infiltrate. CTA thorax done in the ED showed no pulmonary embolism or infiltrate. The ED physician recommended hospitalization for further management of acute bronchitis. Hospital Course: Patient placed under observation and treated scheduled bronchodilators, and IV steroid. She did not require oxygen. Patient clinically improved within 24 hrs . On examination today patient is not dyspneic, she has been ambulating without shortness of breath or desaturation. She was hydrated briefly with IV normal saline. She is clinically stable for discharge. She is discharged with oral Levaquin and prednisone for acute infective bronchitis. Vital Signs/Physical Exam: Temp Pulse Resp BP Pulse Ox 97.7 F 75 18 113/56 L 98 09/27/20 08:00 09/27/20 08:00 09/27/20 08:20 09/27/20 08:00 09/27/20 08:20 General: Alert, In no apparent distress, Oriented x3 HEENT: Normocephalic, Mucous membr. moist/pink, Other (Nor pharyngeal erythema or exudate) Neck: JVD not distended Respiratory: Clear to auscultation bilaterally, Normal air movement Cardiovascular: No edema, Regular rate/rhythm, Normal S1 S2 Capillary refill: <2 Seconds Gastrointestinal: Normal bowel sounds, Soft and benign, Non-distended, No tenderness Musculoskeletal: No swelling, No tenderness Integumentary: No rashes, No tenderness/swelling Neurological: Normal speech, Normal strength at 5/5 x4 extr Laboratory Data at Discharge: WBC 7.10 K/uL (4.3-10.9) D 09/27/20 03:13 Hgb 10.7 g/dL (12.0-15.0) L 09/27/20 03:13 Hct 30.9 % (36.0-45.0) L 09/27/20 03:13 Plt Count 156 K/uL (152-406) 09/27/20 03:13 PT 11.0 SECONDS (9.5-12.5) 09/26/20 08:45 INR 0.96 09/26/20 08:45 Sodium 141 mmol/L (136-145) 09/27/20 03:13 Potassium 4.5 mmol/L (3.5-5.1) 09/27/20 03:13 BUN 20 mg/dL (7-18) H 09/27/20 03:13 Creatinine 0.69 mg/dL (0.55-1.3) 09/27/20 03:13 Glucose 140 mg/dL (74-106) H 09/27/20 03:13 Magnesium 2.6 mg/dL (1.8-2.4) H 09/26/20 08:45 Total Bilirubin 0.6 mg/dL (0.2-1.0) 09/26/20 08:45 AST 23 U/L (15-37) 09/26/20 08:45 ALT 25 U/L (12-78) 09/26/20 08:45 Alkaline Phosphatase 104 U/L (45-117) 09/26/20 08:45 Troponin I < 0.02 ng/mL (0.0-0.045) 09/26/20 15:56 Triglycerides 40 mg/dL (<150) 09/27/20 03:13 Cholesterol 144 mg/dL (<200) 09/27/20 03:13 HDL Cholesterol 51 mg/dL (40-60) 09/27/20 03:13 Cholesterol/HDL Ratio 2.82 09/27/20 03:13 Home Medications: Gabapentin 300 mg PO TID 09/26/20 Losartan Potassium 50 mg PO DAILY 09/26/20 Codeine/APAP [Tylenol W/Codeine #3 tab] 1 tab PO Q6HP PRN #20 tab 09/27/20 Dextromethorphan HBr [Tussin Cough] 5 ml PO Q6HR PRN #1 bottle 09/27/20 levoFLOXacin [Levaquin] 750 mg PO DAILY #5 tab 09/27/20 predniSONE [Deltasone] 20 mg PO DAILY #5 tab 09/27/20 New Medications: Dextromethorphan HBr [Tussin Cough] 5 ml PO Q6HR PRN #1 bottle PRN Reason: Cough Codeine/APAP [Tylenol W/Codeine #3 tab] 1 tab PO Q6HP PRN #20 tab PRN Reason: Pain levoFLOXacin [Levaquin] 750 mg PO DAILY #5 tab predniSONE [Deltasone] 20 mg PO DAILY #5 tab Diet: AHA Activity: Ad cecily Followup: NONE,NONE [Primary Care Provider] - 1-2 Weeks
[2020-09-27 12:17] VITALS: BP 109/62
== END 2020-09-27 13:20 | disposition home or self-care (01) ==
LOC: ER 06:42 → ERHOLD 12:59 → 4TH 18:21
PROVIDERS: ADMIT Internal Medicine; ATTEND Internal Medicine
DX: J20.9 Acute bronchitis, unspecified (principal); E86.0 Dehydration; I10 Essential (primary) hypertension; Z20.822 Contact with and (suspected) exposure to COVID-19; R94.31 Abnormal electrocardiogram [ECG] [EKG]; N28.9 Disorder of kidney and ureter, unspecified
CPT/HCPCS: 96361; 93005; 87040 ×2; 87088; 85025 ×2; 87086; 80048 ×2; 36415 ×2; 83735; 85610; 80061; 80076; 83036; 84484 ×2; 83880; 0240U; 71275; 71045; 96375; 96372; 96374; 99285; Q9967; J1650 ×2; J1100; J7040; J7030 ×2; J2930; J2920 ×3; 81003; 81015; 87077; 87186

== ENCOUNTER 2021-12-26 17:11 | Emergency (ER) | payer OTHER ==
--- OUTSIDE RECORDS SUMMARY | 2021-12-26 17:23 | XMS REPORT | Continuity of Care Document ---
:1955 Author Organization [facility] t Address [address] [place] [address] Care Team Providers Name Role Phone MD ALPHONSE ZARATE Primary Care Physician Go Snow Attending Clinician Unavailable JANICE BREAUX Attending Clinician Unavailable ISABELL EVANS Attending Clinician Unavailable DAILY MENG Attending Clinician Unavailable ALPHONSE ZARATE Attending Clinician Unavailable Kun Novak Attending Clinician Unavailable JO-ANN SWEENEY PA-C Attending Clinician Unavailable Jayce Hurley Attending Clinician Unavailable Luis A Mcarthur Attending Clinician Unavailable Daily Zazueta LVN Attending Clinician Unavailable Joseph Schwarz Attending Clinician Unavailable Anai Zheng MA Attending Clinician Unavailable Triny Avilez MA Attending Clinician Unavailable Jayme Kimball Attending Clinician Unavailable LITO AMBROCIO Attending Clinician Unavailable LEROY CEDEÑO V Attending Clinician Unavailable Alphonse Zarate Admitting Clinician Unavailable Morgan Barrios Admitting Clinician Unavailable Kun Novak Admitting Clinician Unavailable Payers Payer Name Policy Type Policy Number Effective Date Expiration Date Giana billingsley WELLC[employer]/WELLCA [id number] 2013 [employer] 00:00:00 [place] [employer] [id number] [address] [facility] [id number] [address] [facility] Problems Condition Condition Condition Status Onset Resolution Last Treating Co mments Source Name Details Category Date Date Treatment Clinician Date Alcohol Alcohol Disease Active [facility] abuse abuse 11-16 Health 00:00: 00 Anemia Anemia Disease Active UT 11-16 Health 00:00: 00 Chest pain Chest pain Disease Active U T 11-16 Health 00:00: 00 Dyspnea Dyspnea Disease Active UT 11-16 Health 00:00: 00 Encounter Encounter Disease Active UT for for 11-16 Health screening screening 00:00: mammogram mammogram 00 for for malignant malignant neoplasm neoplasm of breast of breast Iron Iron Disease Active UT deficiency deficiency 11-16 He alth 00:00: 00 Loss of Loss of Disease Active UT appetite appetite 11-16 Health 00:00: 00 Spasm Spasm Disease Active UT 7 Health 00:00: 00 Left knee Left knee Disease Active UT pain pain 10-17 Health 00:00: 00 Hematochez Hematochez Disease Active U T ia ia 10-17 Health 00:00: 00 Essential Essential Disease Active UT hypertensi hypertensi 2-09 He alth on, benign on, benign 00:00: 00 Other Other Disease Active UT hyperlipid hyperlipid 2-09 He alth emia emia 00:00: 00 Cervicalgi Cervicalgi Disease Active U T a a 05-14 Health 00:00: 00 History of History of Disease Active U T stroke stroke 05-14 Health 00:00: 00 Other Other Disease Active UT mixed mixed 05-14 Health anxiety anxiety 00:00: disorders disorders 00 Disorder Disorder Disease Active UT of of 1-17 Health peripheral peripheral 00:00: nervous nervous 00 system system 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 1-15 Health 00:00: 00 Bilateral Bilateral Disease Active UT carpal carpal 1-15 Health tunnel tunnel 00:00: syndrome syndrome 00 Cerebral Cerebral Disease Active UT ischemia ischemia -15 Health 00:00: 00 Chronic Chronic Disease Active UT pain pain -15 Health syndrome syndrome 00:00: 00 Cortical Cortical Disease Active UT age-relate age-relate 1-15 He alth d cataract d cataract 00:00: of both of both 00 eyes eyes Elevated Elevated Disease Active UT liver liver 15 Health enzymes enzymes 00:00: 00 GERD GERD Disease Active UT (gastroeso (gastroeso -15 He alth phageal phageal 00:00: reflux reflux 00 disease) disease) Insomnia Insomnia Disease Active UT 1-15 Health 00:00: 00 Depression Depression Disease Active U T with with 1-15 Health anxiety anxiety 00:00: 00 Seasonal Seasonal Disease Active UT allergic allergic 15 Health rhinitis rhinitis 00:00: due to due to 00 pollen pollen 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 1-15 Health nerve nerve 00:00: palsy palsy 00 Acute Acute Disease Active UT right right 15 Health ankle pain ankle pain 00:00: 00 Insomnia Insomnia Disease Active UT due to due to -15 Health medical medical 00:00: condition condition 00 Alcohol Alcohol Disease Active 2019-04 UT abuse, in abuse, in 05-06 Heal th remission remission 00:00: 00 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 05-06 Health heart heart 00:00: disease of disease of 00 [place] 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 Iron Iron Disease Active 2019-04 UT deficiency deficiency 05-06 He alth anemia anemia 00:00: secondary secondary 00 to to inadequate inadequate dietary dietary iron iron intake intake Osteoarthr Osteoarthr Disease Active 2019-04 U T itis of itis of 05-06 Health both hands both hands 00:00: 00 Vitamin Vitamin Disease Active 2019-04 UT B12 B12 05-06 Health deficiency deficiency 00:00: 00 Vitamin D Vitamin D Disease Active 2019-04 UT deficiency deficiency 1-09 He alth 00:00: 00 Seborrheic Seborrheic Disease Active U T keratosis keratosis 3-08 Heal th 00:00: 00 Solar Solar Disease Active UT lentigo lentigo 3-08 Health 00:00: 00 Xerosis Xerosis Disease Active UT cutis cutis 3-08 Health 00:00: 00 Polyarthro Polyarthro Disease Active U T tino, tino, 7-17 Health multiple multiple 00:00: sites sites 00 Lumbar Lumbar Disease Active UT disc disc 6-07 Health disease disease 00:00: 00 Acute Acute Disease Active 2015-04 UT pancreatit pancreatit 1-11 He alth is is 00:00: 00 EPISTAXIS EPISTAXIS Diagnosis Active 2012-01-12 Memoria Active 01-11 12:05:00 l 01/12/2012 00:00: Booker davis MH [address] [facility] Chronic Chronic Problem Active 2013-12-17 Me moria pain pain 02:49:54 l disorder disorder Booker n Active Problem 12/17/2013 [facility] BMI less BMI less Problem Active 2013-12-17 Memoria than than 02:49:54 l 19,adult 19,adult Booker n Active Problem 12/17/2013 [facility] Nausea and Nausea Problem Active 2013-12-17 Memoria vomiting and 02:49:54 l vomiting Clare Active Problem 12/17/2013 [facility] Depression Depressio Problem Active 2013-12-17 Memoria n Active 02:49:54 l Problem Clare 12/17/2013 [facility] Underweigh Underweig Problem Active 2013-12-17 Memoria t ht Active 02:49:54 l Problem Clare 12/17/2013 [facility] Weight Weight Problem Active 2013-12-17 Chris carlos loss, loss, 02:49:54 l non-intent non-intent He rmann ional ional Active Problem 12/17/2013 [facility] Shortness Shortness Problem Active 2013-12-17 Memoria of breath of breath 02:49:54 l Active Andrea Problem 12/17/2013 [facility] Chest pain Chest Problem Active 2013-12-17 M emoria pain 02:49:54 l Active Andrea Problem 12/17/2013 [facility] Neuropathy Problem [facility] Weight Problem Active [facility] Allergies, Adverse Reactions, Alerts Allergy Allergy Status Severity Reaction(s) Onset Inactive Treating Comm ents Source Name Type Date Date Clinician No Known DA Active U 2020-04 [facility] No Known DA Active U [facility] 7 [facility] No Known DA Active U [facility] 4-24 [facility] 00:[facility] e [facility] Keflex Keflex Active Memoria 05-09 l 06:00: Andrea 00 Cephalex Allergy Active UT in to 05-09 Health substan 00:00: e 00 No Known DA Active [facility] Social History Social Habit Start Date Stop Date Quantity Comments Source Exposure to Not sure [facility] SARS-CoV-2 (event) [facility] Alcohol Frequency History [facility] Alcohol Std Drinks History formerly [facility] Alcohol Binge Alcohol intake 2020-10-17 2020-10-17 Ex-drinker [facility] 00:00:00 00:00:00 (finding) Alcohol Comment 2020-10-16 2020-10-16 alcoholism in [facility] 00:00:00 00:00:00 recovery Tobacco use and 2020-10-16 2020-10-16 Smokeless tobacco [facility] exposure 00:00:00 00:00:00 non-user SexualHistory[facility] 2013[facility]10[facility]25 [facility] Sex Ass[birth year] [facility] 00:00:00 00:00:00 Smoking Status Start Date Stop Date Source Never smoked tobacco [facility] Medications Ordered Filled Start Stop Current Ordering Indication Dosage Frequency Signature Comments Components Source Medication Medication Date Date Medication? Clinician (SIG) Name Name Duloxetine Duloxetine 2021- No [address] [facility] Hcl 05-24 [facility] (Cymbalta) (Cymbalta) 20:54: 00:00 Patient 30 Mg 30 Mg 00 :00 s CAPSULE.DR RASHEED. [facility] Gabapentin Gabapentin Yes [address] (Gabapentin (Gabapentin 05-24 Hours for [facility] *) 300 Mg *) 300 Mg 20:53: Pain Pat ient CAPSULE CAPSULE 00 [facility] Gabapentin Gabapentin 2021- No [address] 05-24 needed for [facility] 20:53: 00:00 Moderate Patient 00 :00 Pain (4-6) [facility] Duloxetine Duloxetine Yes [address] Hcl Hcl 05-24 [facility] 20:52: Patient 00 [facility] Tramadol Tramadol Yes [address] . Hcl (Ultram Hcl (Ultram 05-24 Hours as [facility] 50MG*) 50 50MG*) 50 20:52: needed for Patient Mg TAB Mg TAB 00 Moderate s Pain (4-6) [facility] Zolpidem Zolpidem Yes [address] Tartrate Tartrate 05-24 [facility] (Ambien) 10 (Ambien) 10 20:52: Patient Mg TABLET Mg TABLET 00 [facility] Alprazolam Alprazolam No Every 12 St[address] (Xanax) (Xanax) 05-24 Hours for Jeffry e's 0.25 Mg 0.25 Mg 20:50: 00:00 Anxiety Pat ient TABLET TABLET 00 :00 [facility] Aspirin Aspirin 2021- No Daily St. (Aspir 81) (Aspir 81) 05-24 Meenakshi ke's 81 Mg 81 Mg 20:50: 00:00 Patient TABLET.DR YOUNG. 00 :00 [facility] Famotidine Famotidine 2021- No [address] (Pepcid) 20 (Pepcid) 20 05-24 Day as [facility] Mg TABLET Mg TABLET 20:50: 00:00 needed for Patient 00 :00 [facility] Losartan Losartan 2021- No [address] Potassium Potassium 05-24 [facility] 20:50: 00:00 Patient 00 :00 [facility] Mirtazapine Mirtazapine 2021- No [address] 05-24 [facility] 20:50: 00:00 Patient 00 :00 [facility] Trazodone Trazodone 2021- No [address] 05-24 for [facility]'s 20:50: 00:00 Depression Patien t 00 :00 [facility] gabapentin Yes [id number] TAKE 1 UT (Neurontin) 9-07 CAPSULE(30 He alth 300 MG 00:00: 0 MG) BY capsule 00 MOUTH TWICE DAILY gabapentin Yes [id number] TAKE 1 UT (Neurontin) 9-07 CAPSULE(30 He alth 300 MG 00:00: 0 MG) BY capsule 00 MOUTH TWICE DAILY gabapentin Yes [id number] TAKE 1 UT (Neurontin) 9-07 CAPSULE(30 He alth 300 MG 00:00: 0 MG) BY capsule 00 MOUTH TWICE DAILY gabapentin Yes [id number] TAKE 1 UT (Neurontin) 9-07 CAPSULE(30 He alth 300 MG 00:00: 0 MG) BY capsule 00 MOUTH TWICE DAILY gabapentin Yes [id number] TAKE 1 UT (Neurontin) 9-07 CAPSULE(30 He alth 300 MG 00:00: 0 MG) BY capsule 00 MOUTH TWICE DAILY gabapentin Yes [id number] TAKE 1 UT (Neurontin) 9-07 CAPSULE(30 He alth 300 MG 00:00: 0 MG) BY capsule 00 MOUTH TWICE DAILY gabapentin Yes [id number] TAKE 1 UT (Neurontin) 9-07 CAPSULE(30 He alth 300 MG 00:00: 0 MG) BY capsule 00 MOUTH TWICE DAILY gabapentin Yes [id number] TAKE 1 UT (Neurontin) 9-07 CAPSULE(30 He alth 300 MG 00:00: 0 MG) BY capsule 00 MOUTH TWICE DAILY DULoxetine 2021- No [id number] 60mg QD Take 1 UT (Cymbalta) 12-07 capsule Healt h [address] 00:00: 05:59 (60 mg capsule 00 :00 total) by mouth 1 (one) time each day. Do not crush or chew. DULoxetine 2021- No [id number] 60mg QD Take 1 UT (Cymbalta) 12-07 capsule Healt h [address] 00:00: 05:59 (60 mg capsule 00 :00 total) by mouth 1 (one) time each day. Do not crush or chew. DULoxetine 2021- No [id number] 60mg QD Take 1 UT (Cymbalta) 12-07 capsule Healt h [address] 00:00: 05:59 (60 mg capsule 00 :00 total) by mouth 1 (one) time each day. Do not crush or chew. DULoxetine 2021- No [id number] 60mg QD Take 1 UT (Cymbalta) 12-07 capsule Healt h [address] 00:00: 05:59 (60 mg capsule 00 :00 total) by mouth 1 (one) time each day. Do not crush or chew. DULoxetine 2021- No [id number] 60mg QD Take 1 UT (Cymbalta) 12-07 capsule Healt h [address] 00:00: 05:59 (60 mg capsule 00 :00 total) by mouth 1 (one) time each day. Do not crush or chew. DULoxetine 2021- No [id number] 60mg QD Take 1 UT (Cymbalta) 12-07 capsule Healt h [address] 00:00: 05:59 (60 mg capsule 00 :00 total) by mouth 1 (one) time each day. Do not crush or chew. DULoxetine 2021- No [id number] 60mg QD Take 1 UT (Cymbalta) 12-07 capsule Healt h [address] 00:00: 05:59 (60 mg capsule 00 :00 total) by mouth 1 (one) time each day. Do not crush or chew. DULoxetine 2021- No [id number] 60mg QD Take 1 UT (Cymbalta) 12-07 capsule Healt h [address] 00:00: 05:59 (60 mg capsule 00 :00 total) by mouth 1 (one) time each day. Do not crush or chew. DULoxetine 2021- No [id number] 60mg QD Take 1 UT (Cymbalta) 8-12 02-09 capsule Healt h [address] 00:00: 05:59 (60 mg capsule 00 :00 total) by mouth 1 (one) time each day. Do not crush or chew. losartan 2020-0 Yes 25mg QD Take 25 mg UT (Cozaar) 25 6-23 by mouth 1 He alth MG tablet 00:00: (one) time 00 each day. losartan 2020-0 Yes 25mg QD Take 25 mg UT (Cozaar) 25 6-23 by mouth 1 He alth MG tablet 00:00: (one) time 00 each day. losartan 2020-0 Yes 25mg QD Take 25 mg UT (Cozaar) 25 6-23 by mouth 1 He alth MG tablet 00:00: (one) time 00 each day. losartan 2020-0 Yes 25mg QD Take 25 mg UT (Cozaar) 25 6-23 by mouth 1 He alth MG tablet 00:00: (one) time 00 each day. losartan 2020-0 Yes 25mg QD Take 25 mg UT (Cozaar) 25 6-23 by mouth 1 He alth MG tablet 00:00: (one) time 00 each day. losartan 2020-0 Yes 25mg QD Take 25 mg UT (Cozaar) 25 6-23 by mouth 1 He alth MG tablet 00:00: (one) time 00 each day. losartan 2020-0 Yes 25mg QD Take 25 mg UT (Cozaar) 25 6-23 by mouth 1 He alth MG tablet 00:00: (one) time 00 each day. losartan 2020-0 Yes 25mg QD Take 25 mg UT (Cozaar) 25 6-23 by mouth 1 He alth MG tablet 00:00: (one) time 00 each day. losartan 2020-0 Yes 25mg QD Take 25 mg UT (Cozaar) 25 6-23 by mouth 1 He alth MG tablet 00:00: (one) time 00 each day. losartan 2021-0 Yes 25mg QD Take 25 mg UT (Cozaar) 25 6-23 by mouth 1 He alth MG tablet 00:00: (one) time 00 each day. losartan 2021-0 Yes 25mg QD Take 25 mg UT (Cozaar) 25 6-23 by mouth 1 He alth MG tablet 00:00: (one) time 00 each day. losartan 2021-0 Yes 25mg QD Take 25 mg UT (Cozaar) 25 6-23 by mouth 1 He alth MG tablet 00:00: (one) time 00 each day. Apoaequorin Yes TAKE 1 UT (Prevagen) 6-22 CAPSULE Health 10 MG 15:34: DAILY capsule 41 montelukast 0 Yes 10mg Take 10 mg UT (Singulair) 6-22 by mouth Heal th 10 MG 15:34: every tablet 41 night. Diclofenac 2020- Yes Q.5D Apply UT Sodium 6-22 topically Health (Voltaren) 15:34: 2 (two) 1 % 41 times a external day. gel Potassium Yes TAKE 2 UT 99 MG 6-22 TABLETS Health tablet 15:34: DAILY 41 Apoaequorin 0 Yes TAKE 1 UT (Prevagen) 6-22 CAPSULE Health 10 MG 15:34: DAILY capsule 41 montelukast 0 Yes 10mg Take 10 mg UT (Singulair) 6-22 by mouth Heal th 10 MG 15:34: every tablet 41 night. Diclofenac 2020- Yes Q.5D Apply UT Sodium 6-22 topically Health (Voltaren) 15:34: 2 (two) 1 % 41 times a external day. gel Potassium Yes TAKE 2 UT 99 MG 6-22 TABLETS Health tablet 15:34: DAILY 41 Apoaequorin 0 Yes TAKE 1 UT (Prevagen) 6-22 CAPSULE Health 10 MG 15:34: DAILY capsule 41 montelukast Yes 10mg Take 10 mg UT (Singulair) 6-22 by mouth Heal th 10 MG 15:34: every tablet 41 night. Diclofenac 2020-0 Yes Q.5D Apply UT Sodium 6-22 topically Health (Voltaren) 15:34: 2 (two) 1 % 41 times a external day. gel Potassium Yes TAKE 2 UT 99 MG 6-22 TABLETS Health tablet 15:34: DAILY 41 Apoaequorin 0 Yes TAKE 1 UT (Prevagen) 6-22 CAPSULE Health 10 MG 15:34: DAILY capsule 41 montelukast 0 Yes 10mg Take 10 mg UT (Singulair) 6-22 by mouth Heal th 10 MG 15:34: every tablet 41 night. Diclofenac 2020-0 Yes Q.5D Apply UT Sodium 6-22 topically Health (Voltaren) 15:34: 2 (two) 1 % 41 times a external day. gel Potassium 0 Yes TAKE 2 UT 99 MG 6-22 TABLETS Health tablet 15:34: DAILY 41 Apoaequorin 0 Yes TAKE 1 UT (Prevagen) 6-22 CAPSULE Health 10 MG 15:34: DAILY capsule 41 montelukast 0 Yes 10mg Take 10 mg UT (Singulair) 6-22 by mouth Heal th 10 MG 15:34: every tablet 41 night. Diclofenac 0 Yes Q.5D Apply UT Sodium 6-22 topically Health (Voltaren) 15:34: 2 (two) 1 % 41 times a external day. gel Potassium Yes TAKE 2 UT 99 MG 6-22 TABLETS Health tablet 15:34: DAILY 41 Apoaequorin 0 Yes TAKE 1 UT (Prevagen) 6-22 CAPSULE Health 10 MG 15:34: DAILY capsule 41 montelukast 0 Yes 10mg Take 10 mg UT (Singulair) 6-22 by mouth Heal th 10 MG 15:34: every tablet 41 night. Diclofenac 2020-0 Yes Q.5D Apply UT Sodium 6-22 topically Health (Voltaren) 15:34: 2 (two) 1 % 41 times a external day. gel Potassium 0 Yes TAKE 2 UT 99 MG 6-22 TABLETS Health tablet 15:34: DAILY 41 Apoaequorin 0 Yes TAKE 1 UT (Prevagen) 6-22 CAPSULE Health 10 MG 15:34: DAILY capsule 41 montelukast 0 Yes 10mg Take 10 mg UT (Singulair) 6-22 by mouth Heal th 10 MG 15:34: every tablet 41 night. Diclofenac 0 Yes Q.5D Apply UT Sodium 6-22 topically Health (Voltaren) 15:34: 2 (two) 1 % 41 times a external day. gel Potassium 0 Yes TAKE 2 UT 99 MG 6-22 TABLETS Health tablet 15:34: DAILY 41 Apoaequorin 0 Yes TAKE 1 UT (Prevagen) 6-22 CAPSULE Health 10 MG 15:34: DAILY capsule 41 montelukast 0 Yes 10mg Take 10 mg UT (Singulair) 6-22 by mouth Heal th 10 MG 15:34: every tablet 41 night. Diclofenac 0 Yes Q.5D Apply UT Sodium 6-22 topically Health (Voltaren) 15:34: 2 (two) 1 % 41 times a external day. gel Potassium Yes TAKE 2 UT 99 MG 6-22 TABLETS Health tablet 15:34: DAILY 41 Apoaequorin 0 Yes TAKE 1 UT (Prevagen) 6-22 CAPSULE Health 10 MG 15:34: DAILY capsule 41 montelukast 0 Yes 10mg Take 10 mg UT (Singulair) 6-22 by mouth Heal th 10 MG 15:34: every tablet 41 night. Diclofenac 0 Yes Q.5D Apply UT Sodium 6-22 topically Health (Voltaren) 15:34: 2 (two) 1 % 41 times a external day. gel Potassium Yes TAKE 2 UT 99 MG 6-22 TABLETS Health tablet 15:34: DAILY 41 Apoaequorin 0 Yes TAKE 1 UT (Prevagen) 6-22 CAPSULE Health 10 MG 15:34: DAILY capsule 41 montelukast 0 Yes 10mg Take 10 mg UT (Singulair) 6-22 by mouth Heal th 10 MG 15:34: every tablet 41 night. Diclofenac 0 Yes Q.5D Apply UT Sodium 6-22 topically Health (Voltaren) 15:34: 2 (two) 1 % 41 times a external day. gel Potassium Yes TAKE 2 UT 99 MG 6-22 TABLETS Health tablet 15:34: DAILY 41 Apoaequorin 0 Yes TAKE 1 UT (Prevagen) 6-22 CAPSULE Health 10 MG 15:34: DAILY capsule 41 montelukast 0 Yes 10mg Take 10 mg UT (Singulair) 6-22 by mouth Heal th 10 MG 15:34: every tablet 41 night. Diclofenac 0 Yes Q.5D Apply UT Sodium 6-22 topically Health (Voltaren) 15:34: 2 (two) 1 % 41 times a external day. gel Potassium Yes TAKE 2 UT 99 MG 6-22 TABLETS Health tablet 15:34: DAILY 41 Apoaequorin 0 Yes TAKE 1 UT (Prevagen) 6-22 CAPSULE Health 10 MG 15:34: DAILY capsule 41 montelukast 2021-0 Yes 10mg Take 10 mg UT (Singulair) 6-22 by mouth Heal th 10 MG 15:34: every tablet 41 night. Diclofenac 2020-0 Yes Q.5D Apply UT Sodium 6-22 topically Health (Voltaren) 15:34: 2 (two) 1 % 41 times a external day. gel Potassium Yes TAKE 2 UT 99 MG 6-22 TABLETS Health tablet 15:34: DAILY 41 aspirin 81 Yes TAKE 1 UT MG EC 6-22 TABLET Health tablet 15:33: DAILY. 45 aspirin 81 0 Yes TAKE 1 UT MG EC 6-22 TABLET Health tablet 15:33: DAILY. 45 aspirin 81 0 Yes TAKE 1 UT MG EC 6-22 TABLET Health tablet 15:33: DAILY. 45 aspirin 81 0 Yes TAKE 1 UT MG EC 6-22 TABLET Health tablet 15:33: DAILY. 45 aspirin 81 0 Yes TAKE 1 UT MG EC 6-22 TABLET Health tablet 15:33: DAILY. 45 aspirin 81 0 Yes TAKE 1 UT MG EC 6-22 TABLET Health tablet 15:33: DAILY. 45 aspirin 81 0 Yes TAKE 1 UT MG EC 6-22 TABLET Health tablet 15:33: DAILY. 45 aspirin 81 0 Yes TAKE 1 UT MG EC 6-22 TABLET Health tablet 15:33: DAILY. 45 aspirin 81 0 Yes TAKE 1 UT MG EC 6-22 TABLET Health tablet 15:33: DAILY. 45 aspirin 81 0 Yes TAKE 1 UT MG EC 6-22 TABLET Health tablet 15:33: DAILY. 45 aspirin 81 0 Yes TAKE 1 UT MG EC 6-22 TABLET Health tablet 15:33: DAILY. 45 aspirin 81 0 Yes TAKE 1 UT MG EC 6-22 TABLET Health tablet 15:33: DAILY. 45 Diclofenac Yes Q.5D Apply UT Sodium 6-22 topically Health (Voltaren) 10:34: 2 (two) 1 % 41 times a external day. gel Potassium Yes TAKE 2 UT 99 MG 6-22 TABLETS Health tablet 10:34: DAILY 41 Apoaequorin Yes TAKE 1 UT (Prevagen) 6-22 CAPSULE Health 10 MG 10:34: DAILY capsule 41 montelukast Yes 10mg Take 10 mg UT (Singulair) 6-22 by mouth Heal th 10 MG 10:34: every tablet 41 night. Diclofenac Yes Q.5D Apply UT Sodium 6-22 topically Health (Voltaren) 10:34: 2 (two) 1 % 41 times a external day. gel Potassium Yes TAKE 2 UT 99 MG 6-22 TABLETS Health tablet 10:34: DAILY 41 Apoaequorin 0 Yes TAKE 1 UT (Prevagen) 6-22 CAPSULE Health 10 MG 10:34: DAILY capsule 41 montelukast 0 Yes 10mg Take 10 mg UT (Singulair) 6-22 by mouth Heal th 10 MG 10:34: every tablet 41 night. Diclofenac Yes Q.5D Apply UT Sodium 6-22 topically Health (Voltaren) 10:34: 2 (two) 1 % 41 times a external day. gel Potassium Yes TAKE 2 UT 99 MG 6-22 TABLETS Health tablet 10:34: DAILY 41 Apoaequorin 0 Yes TAKE 1 UT (Prevagen) 6-22 CAPSULE Health 10 MG 10:34: DAILY capsule 41 montelukast 0 Yes 10mg Take 10 mg UT (Singulair) 6-22 by mouth Heal th 10 MG 10:34: every tablet 41 night. Diclofenac Yes Q.5D Apply UT Sodium 6-22 topically Health (Voltaren) 10:34: 2 (two) 1 % 41 times a external day. gel Potassium Yes TAKE 2 UT 99 MG 6-22 TABLETS Health tablet 10:34: DAILY 41 Apoaequorin 0 Yes TAKE 1 UT (Prevagen) 6-22 CAPSULE Health 10 MG 10:34: DAILY capsule 41 montelukast 0 Yes 10mg Take 10 mg UT (Singulair) 6-22 by mouth Heal th 10 MG 10:34: every tablet 41 night. Diclofenac Yes Q.5D Apply UT Sodium 6-22 topically Health (Voltaren) 10:34: 2 (two) 1 % 41 times a external day. gel Potassium Yes TAKE 2 UT 99 MG 6-22 TABLETS Health tablet 10:34: DAILY 41 Apoaequorin 0 Yes TAKE 1 UT (Prevagen) 6-22 CAPSULE Health 10 MG 10:34: DAILY capsule 41 montelukast Yes 10mg Take 10 mg UT (Singulair) 6-22 by mouth Heal th 10 MG 10:34: every tablet 41 night. Diclofenac Yes Q.5D Apply UT Sodium 6-22 topically Health (Voltaren) 10:34: 2 (two) 1 % 41 times a external day. gel Potassium Yes TAKE 2 UT 99 MG 6-22 TABLETS Health tablet 10:34: DAILY 41 Apoaequorin Yes TAKE 1 UT (Prevagen) 6-22 CAPSULE Health 10 MG 10:34: DAILY capsule 41 montelukast Yes 10mg Take 10 mg UT (Singulair) 6-22 by mouth Heal th 10 MG 10:34: every tablet 41 night. aspirin 81 Yes TAKE 1 UT MG EC 6-22 TABLET Health tablet 10:33: DAILY. 45 aspirin 81 Yes TAKE 1 UT MG EC 6-22 TABLET Health tablet 10:33: DAILY. 45 aspirin 81 Yes TAKE 1 UT MG EC 6-22 TABLET Health tablet 10:33: DAILY. 45 aspirin 81 Yes TAKE 1 UT MG EC 6-22 TABLET Health tablet 10:33: DAILY. 45 aspirin 81 Yes TAKE 1 UT MG EC 6-22 TABLET Health tablet 10:33: DAILY. 45 aspirin 81 Yes TAKE 1 UT MG EC 6-22 TABLET Health tablet 10:33: DAILY. 45 gabapentin 2020- No [id number] 300mg Q.5D Take 1 UT (Neurontin) 10-17 capsule Heal th 300 MG 00:00: 04:59 (300 mg capsule 00 :00 total) by mouth 2 (two) times a day. gabapentin 2020- No [id number] 300mg Q.5D Take 1 UT (Neurontin) -12-17 capsule Heal th 300 MG 00:00: 04:59 (300 mg capsule 00 :00 total) by mouth 2 (two) times a day. gabapentin 2020- No [id number] 300mg Q.5D Take 1 UT (Neurontin) 10-17 capsule Heal th 300 MG 00:00: 04:59 (300 mg capsule 00 :00 total) by mouth 2 (two) times a day. gabapentin 2020- No [id number] 300mg Q.5D Take 1 UT (Neurontin) 10-17 capsule Heal th 300 MG 00:00: 04:59 (300 mg capsule 00 :00 total) by mouth 2 (two) times a day. gabapentin 2020- No [id number] 300mg Q.5D Take 1 UT (Neurontin) 10-17 capsule Heal th 300 MG 00:00: 04:59 (300 mg capsule 00 :00 total) by mouth 2 (two) times a day. gabapentin 2020- No [id number] 300mg Q.5D Take 1 [facility] (Neurontin) 10-17 capsule Heal th 300 MG 00:00: 04:59 (300 mg capsule 00 :00 total) by mouth 2 (two) times a day. gabapentin 2020- No [id number] 300mg Q.5D Take 1 [facility] (Neurontin) 10-17 capsule Heal th 300 MG 00:00: 04:59 (300 mg capsule 00 :00 total) by mouth 2 (two) times a day. gabapentin 2020- No [id number] 300mg Q.5D Take 1 [facility] (Neurontin) 10-17 capsule Heal th 300 MG 00:00: 04:59 (300 mg capsule 00 :00 total) by mouth 2 (two) times a day. ferrous Yes Take by [facility] sulfate 325 6-21 mouth. Health (65 Fe) MG 18:27: TAKE 1 EC tablet 00 TABLE TWICE DAILY Multiple Yes 1{capsu QD Take 1 [facility] Vitamin 6-21 le} capsule by Health (multivitam 18:27: mouth 1 in) capsule 00 (one) time each day. ferrous Yes Take by [facility] sulfate 325 6-21 mouth. Health (65 Fe) MG 18:27: TAKE 1 EC tablet 00 TABLE TWICE DAILY Multiple Yes 1{capsu QD Take 1 [facility] Vitamin 6-21 le} capsule by Health (multivitam 18:27: mouth 1 in) capsule 00 (one) time each day. ferrous Yes Take by [facility] sulfate 325 6-21 mouth. Health (65 Fe) MG 18:27: TAKE 1 EC tablet 00 TABLE TWICE DAILY Multiple Yes 1{capsu QD Take 1 [facility] Vitamin 6-21 le} capsule by Health (multivitam 18:27: mouth 1 in) capsule 00 (one) time each day. ferrous Yes Take by [facility] sulfate 325 6-21 mouth. Health (65 Fe) MG 18:27: TAKE 1 EC tablet 00 TABLE TWICE DAILY Multiple Yes 1{capsu QD Take 1 [facility] Vitamin 6-21 le} capsule by Health (multivitam 18:27: mouth 1 in) capsule 00 (one) time each day. ferrous Yes Take by [facility] sulfate 325 6-21 mouth. Health (65 Fe) MG 18:27: TAKE 1 EC tablet 00 TABLE TWICE DAILY Multiple Yes 1{capsu QD Take 1 [facility] Vitamin 6-21 le} capsule by Health (multivitam 18:27: mouth 1 in) capsule 00 (one) time each day. ferrous Yes Take by [facility] sulfate 325 6-21 mouth. Health (65 Fe) MG 18:27: TAKE 1 EC tablet 00 TABLE TWICE DAILY Multiple Yes 1{capsu QD Take 1 [facility] Vitamin 6-21 le} capsule by Health (multivitam 18:27: mouth 1 in) capsule 00 (one) time each day. ferrous Yes Take by [facility] sulfate 325 6-21 mouth. Health (65 Fe) MG 18:27: TAKE 1 EC tablet 00 TABLE TWICE DAILY Multiple Yes 1{capsu QD Take 1 [facility] Vitamin 6-21 le} capsule by Health (multivitam 18:27: mouth 1 in) capsule 00 (one) time each day. ferrous Yes Take by [facility] sulfate 325 6-21 mouth. Health (65 Fe) MG 18:27: TAKE 1 EC tablet 00 TABLE TWICE DAILY Multiple Yes 1{capsu QD Take 1 [facility] Vitamin 6-21 le} capsule by Health (multivitam 18:27: mouth 1 in) capsule 00 (one) time each day. ferrous Yes Take by [facility] sulfate 325 6-21 mouth. Health (65 Fe) MG 18:27: TAKE 1 EC tablet 00 TABLE TWICE DAILY Multiple Yes 1{capsu QD Take 1 [facility] Vitamin 6-21 le} capsule by Health (multivitam 18:27: mouth 1 in) capsule 00 (one) time each day. ferrous 2021-0 Yes Take by [facility] sulfate 325 6-21 mouth. Health (65 Fe) MG 18:27: TAKE 1 EC tablet 00 TABLE TWICE DAILY Multiple 2020-0 Yes 1{capsu QD Take 1 [facility] Vitamin 6-21 le} capsule by Health (multivitam 18:27: mouth 1 in) capsule 00 (one) time each day. ferrous 2020-0 Yes Take by [facility] sulfate 325 6-21 mouth. Health (65 Fe) MG 18:27: TAKE 1 EC tablet 00 TABLE TWICE DAILY Multiple 2020-0 Yes 1{capsu QD Take 1 [facility] Vitamin 6-21 le} capsule by Health (multivitam 18:27: mouth 1 in) capsule 00 (one) time each day. ferrous 2020-0 Yes Take by [facility] sulfate 325 6-21 mouth. Health (65 Fe) MG 18:27: TAKE 1 EC tablet 00 TABLE TWICE DAILY Multiple 2020-0 Yes 1{capsu QD Take 1 [facility] Vitamin 6-21 le} capsule by Health (multivitam 18:27: mouth 1 in) capsule 00 (one) time each day. cholecalcif 2021-0 Yes TAKE 1 [facility] consuelo 6-21 CAPSULE Health (Vitamin 18:20: DAILY D-3) 50 MCG 00 (1999 UT) capsule cholecalcif 2021-0 Yes TAKE 1 [facility] consuelo 6-21 CAPSULE Health (Vitamin 18:20: DAILY D-3) 50 MCG 00 (1999 UT) capsule cholecalcif 2021-0 Yes TAKE 1 UT consuelo 6-21 CAPSULE Health (Vitamin 18:20: DAILY D-3) 50 MCG 00 (1999 UT) capsule cholecalcif 2021-0 Yes TAKE 1 UT consuelo 6-21 CAPSULE Health (Vitamin 18:20: DAILY D-3) 50 MCG 00 (1999 UT) capsule cholecalcif 2021-0 Yes TAKE 1 UT consuelo 6-21 CAPSULE Health (Vitamin 18:20: DAILY D-3) 50 MCG 00 (1999 UT) capsule cholecalcif 2021-0 Yes TAKE 1 UT consuelo 6-21 CAPSULE Health (Vitamin 18:20: DAILY D-3) 50 MCG 00 (1999 UT) capsule cholecalcif 2021-0 Yes TAKE 1 UT consuelo 6-21 CAPSULE Health (Vitamin 18:20: DAILY D-3) 50 MCG 00 (1999 UT) capsule cholecalcif 2020-0 Yes TAKE 1 UT consuelo 6-21 CAPSULE Health (Vitamin 18:20: DAILY D-3) 50 MCG 00 (1999 UT) capsule cholecalcif 2020-0 Yes TAKE 1 UT consuelo 6-21 CAPSULE Health (Vitamin 18:20: DAILY D-3) 50 MCG 00 (1999) capsule cholecalcif 2020-0 Yes TAKE 1 [facility] consuelo 6-21 CAPSULE Health (Vitamin 18:20: DAILY D-3) 50 MCG 00 (1999 UT) capsule cholecalcif 2020-0 Yes TAKE 1 UT consuelo 6-21 CAPSULE Health (Vitamin 18:20: DAILY D-3) 50 MCG 00 (1999 UT) capsule cholecalcif 2020-0 Yes TAKE 1 UT consuelo 6-21 CAPSULE Health (Vitamin 18:20: DAILY D-3) 50 MCG 00 (1999 UT) capsule ferrous 0 Yes Take by [facility] sulfate 325 6-21 mouth. Health (65 Fe) MG 13:27: TAKE 1 EC tablet 00 TABLE TWICE DAILY Multiple Yes 1{capsu QD Take 1 [facility] Vitamin 6-21 le} capsule by Health (multivitam 13:27: mouth 1 in) capsule 00 (one) time each day. ferrous 0 Yes Take by [facility] sulfate 325 6-21 mouth. Health (65 Fe) MG 13:27: TAKE 1 EC tablet 00 TABLE TWICE DAILY Multiple Yes 1{capsu QD Take 1 [facility] Vitamin 6-21 le} capsule by Health (multivitam 13:27: mouth 1 in) capsule 00 (one) time each day. ferrous 0 Yes Take by [facility] sulfate 325 6-21 mouth. Health (65 Fe) MG 13:27: TAKE 1 EC tablet 00 TABLE TWICE DAILY Multiple 2020- Yes 1{capsu QD Take 1 [facility] Vitamin 6-21 le} capsule by Health (multivitam 13:27: mouth 1 in) capsule 00 (one) time each day. ferrous 2020-0 Yes Take by [facility] sulfate 325 6-21 mouth. Health (65 Fe) MG 13:27: TAKE 1 EC tablet 00 TABLE TWICE DAILY Multiple 2020-0 Yes 1{capsu QD Take 1 [facility] Vitamin 6-21 le} capsule by Health (multivitam 13:27: mouth 1 in) capsule 00 (one) time each day. ferrous 2021-0 Yes Take by [facility] sulfate 325 6-21 mouth. Health (65 Fe) MG 13:27: TAKE 1 EC tablet 00 TABLE TWICE DAILY Multiple 2020-0 Yes 1{capsu QD Take 1 [facility] Vitamin 6-21 le} capsule by Health (multivitam 13:27: mouth 1 in) capsule 00 (one) time each day. ferrous 2021-0 Yes Take by [facility] sulfate 325 6-21 mouth. Health (65 Fe) MG 13:27: TAKE 1 EC tablet 00 TABLE TWICE DAILY Multiple 2020-0 Yes 1{capsu QD Take 1 [facility] Vitamin 6-21 le} capsule by Health (multivitam 13:27: mouth 1 in) capsule 00 (one) time each day. cholecalcif 2020-0 Yes TAKE 1 UT consuelo 6-21 CAPSULE Health (Vitamin 13:20: DAILY D-3) 50 MCG 00 (1999 UT) capsule cholecalcif 2020-0 Yes TAKE 1 UT consuelo 6-21 CAPSULE Health (Vitamin 13:20: DAILY D-3) 50 MCG 00 (1999 UT) capsule cholecalcif 2021-0 Yes TAKE 1 UT consuelo 6-21 CAPSULE Health (Vitamin 13:20: DAILY D-3) 50 MCG 00 (1999 UT) capsule cholecalcif 2021-0 Yes TAKE 1 UT consuelo 6-21 CAPSULE Health (Vitamin 13:20: DAILY D-3) 50 MCG 00 (1999 UT) capsule cholecalcif 2021-0 Yes TAKE 1 UT consuelo 6-21 CAPSULE Health (Vitamin 13:20: DAILY D-3) 50 MCG 00 (1999 UT) capsule cholecalcif 2021-0 Yes TAKE 1 UT consuelo 6-21 CAPSULE Health (Vitamin 13:20: DAILY D-3) 50 MCG 00 (1999 UT) capsule losartan 2021-0 Yes 50mg QD Take 50 mg [facility] (Cozaar) 50 2-09 by mouth 1 He alth MG tablet 00:00: (one) time 00 each day. losartan 2021-0 Yes 50mg QD Take 50 mg [facility] (Cozaar) 50 2-09 by mouth 1 He alth MG tablet 00:00: (one) time 00 each day. losartan 2021-0 Yes 50mg QD Take 50 mg [facility] (Cozaar) 50 2-09 by mouth 1 He alth MG tablet 00:00: (one) time 00 each day. losartan 2021-0 Yes 50mg QD Take 50 mg [facility] (Cozaar) 50 2-09 by mouth 1 He alth MG tablet 00:00: (one) time 00 each day. losartan 2021-0 Yes 50mg QD Take 50 mg [facility] (Cozaar) 50 2-09 by mouth 1 He alth MG tablet 00:00: (one) time 00 each day. losartan 2021-0 Yes 50mg QD Take 50 mg [facility] (Cozaar) 50 2-09 by mouth 1 He alth MG tablet 00:00: (one) time 00 each day. losartan 2021-0 Yes 50mg QD Take 50 mg [facility] (Cozaar) 50 2-09 by mouth 1 He alth MG tablet 00:00: (one) time 00 each day. losartan 2021-0 Yes 50mg QD Take 50 mg [facility] (Cozaar) 50 2-09 by mouth 1 He alth MG tablet 00:00: (one) time 00 each day. losartan 2020-0 Yes 50mg QD Take 50 mg [facility] (Cozaar) 50 2-09 by mouth 1 He alth MG tablet 00:00: (one) time 00 each day. losartan 2020-0 Yes 50mg QD Take 50 mg [facility] (Cozaar) 50 2-09 by mouth 1 He alth MG tablet 00:00: (one) time 00 each day. losartan 1-0 Yes 50mg QD Take 50 mg [facility] (Cozaar) 50 2-09 by mouth 1 He alth MG tablet 00:00: (one) time 00 each day. losartan 1-0 Yes 50mg QD Take 50 mg [facility] (Cozaar) 50 2-09 by mouth 1 He alth MG tablet 00:00: (one) time 00 each day. losartan 2021-0 Yes 50mg QD Take 50 mg [facility] (Cozaar) 50 2-09 by mouth 1 He alth MG tablet 00:00: (one) time 00 each day. losartan 2021-0 Yes 50mg QD Take 50 mg [facility] (Cozaar) 50 2-09 by mouth 1 He alth MG tablet 00:00: (one) time 00 each day. losartan 2021-0 Yes 50mg QD Take 50 mg [facility] (Cozaar) 50 2-09 by mouth 1 He alth MG tablet 00:00: (one) time 00 each day. losartan Yes 50mg QD Take 50 mg UT (Cozaar) 50 2-09 by mouth 1 He alth MG tablet 00:00: (one) time 00 each day. losartan Yes 50mg QD Take 50 mg UT (Cozaar) 50 2-09 by mouth 1 He alth MG tablet 00:00: (one) time 00 each day. losartan Yes 50mg QD Take 50 mg UT (Cozaar) 50 2-09 by mouth 1 He alth MG tablet 00:00: (one) time 00 each day. Ferrous Ferrous 2019- No [facility]ulf[facility] Sulfate 08-24 [facility] (Ferrous (Ferrous 19:14: 00:00 Jaylene ent Sulfate*) Sulfate*) 00 :00 s 325 Mg 325 Mg Medical TABLET TABLET Center Pantoprazol Pantoprazol 2019- No [facility]. e Sodium e Sodium 08-24 [facility] (Protonix) (Protonix) 19:14: 00:00 Patient 40 Mg 40 Mg 00 :00 s TABLET. TABLET. Medic al Center Loratadine Loratadine 2021- No [address] 07-15 [facility] 07:12: 00:00 Patient 00 :00 s [facility] Benzonatate Benzonatate 2020- No [address] (Tessalon (Tessalon 07-15 [facility]) 100 [facility]le) 100 07:12: 00:00 Day as Patient Mg CAPSULE Mg CAPSULE 00 :00 needed for s Cough [facility] Guaifenesin Guaifenesin 2020- No [address] /Dextrometh /Dextrometh 07-15- Hours [facility] 07:12: 00:00 Patient (Mucinex Dm (Mucinex Dm 00 :00 s Er 600-30 Er 600-30 Medic al Mg Tablet) Mg Tablet) Mendel ter 1 Each 1 Each TAB.ER.12H TAB.ER.12H Cyanocobala Yes one tablet [facility] min 8-20 daily. Health (Vitamin 00:00: B-12) 5000 00 MCG tablet dispersible Cyanocobala Yes one tablet [facility] min 8-20 daily. Health (Vitamin 00:00: B-12) 5000 00 MCG tablet dispersible Cyanocobala 2019-0 Yes one tablet UT min 8-20 daily. Health (Vitamin 00:00: B12) 5000 00 MCG tablet dispersible Cyanocobala 2019-0 Yes one tablet UT min 8-20 daily. Health (Vitamin 00:00: B12) 5000 00 MCG tablet dispersible Cyanocobala 2019-0 Yes one tablet UT min 8-20 daily. Health (Vitamin 00:00: 12) 5000 00 MCG tablet dispersible Cyanocobala 2019-0 Yes one tablet UT min 8-20 daily. Health (Vitamin 00:00: B-12) 5000 00 MCG tablet dispersible Cyanocobala 2019-0 Yes one tablet UT min 8-20 daily. Health (Vitamin 00:00: 12) 5000 00 MCG tablet dispersible Cyanocobala 2019-0 Yes one tablet UT min 8-20 daily. Health (Vitamin 00:00: ) 5000 00 MCG tablet dispersible Cyanocobala 2019-0 Yes one tablet UT min 8-20 daily. Health (Vitamin 00:00: 12) 5000 00 MCG tablet dispersible Cyanocobala 2019-0 Yes one tablet UT min 8-20 daily. Health (Vitamin 00:00: 12) 5000 00 MCG tablet dispersible Cyanocobala 2019-0 Yes one tablet UT min 8-20 daily. Health (Vitamin 00:00: 12) 5000 00 MCG tablet dispersible Cyanocobala 2019-0 Yes one tablet UT min 8-20 daily. Health (Vitamin 00:00: 12) 5000 00 MCG tablet dispersible Cyanocobala 2019-0 Yes one tablet UT min 8-20 daily. Health (Vitamin 00:00: -12) 5000 00 MCG tablet dispersible Cyanocobala 2019-0 Yes one tablet UT min 8-20 daily. Health (Vitamin 00:00: B-12) 5000 00 MCG tablet dispersible Cyanocobala 2019-0 Yes one tablet UT min 8-20 daily. Health (Vitamin 00:00: B-12) 5000 00 MCG tablet dispersible Cyanocobala 2019-0 Yes one tablet UT min 8-20 daily. Health (Vitamin 00:00: B-12) 5000 00 MCG tablet dispersible Cyanocobala 2019-0 Yes one tablet UT min 8-20 daily. Health (Vitamin 00:00: 12) 5000 00 MCG tablet dispersible Cyanocobala 2019-0 Yes one tablet UT min 8-20 daily. Health (Vitamin 00:00: 12) 5000 00 MCG tablet dispersible Clopidogrel 2014-0 Yes Regina 1 tablet [facility] Bisulfate 7-01 Will l 00:00: Andrea 00 Clopidogrel 2013-0 Yes [facility]ina 1 tablet [facility] Bisulfate 7-01 Will l 00:00: Andrea 00 Albuterol 2014-0 Yes Regina 2 puffs as [facility] Sulfate HFA 6-30 Will needed l 00:00: Andrea 00 Nitroglycer 2013-0 Yes Reg[facility] 1 tablet [facility] in 6-30 Will under the l 00:00: tongue and Andrea 00 allow to dissolve as needed Albuterol 2013-0 Yes Reg[facility] 2 puffs as [facility] Sulfate HFA 6-30 Will needed l 00:00: Nitroglycer 2013-0 Yes Regina 1 tablet [facility] in 6-30 Will under the l 00:00: tongue and Clare 00 allow to dissolve as needed Benzonatate 2014-0 Yes Reg[facility] 1 capsule [facility] 6-16 Will as needed l 00:00: Amoxicillin 2013-0 Yes Regina 1 tablet Memoria 6-16 Will l 00:00: Clare 00 Benzonatate 2014-0 Yes Reg[facility] 1 capsule [facility]oria 6-16 Will as needed l 00:00: Amoxicillin 2014-0 Yes Regina 1 tablet [facility]oria 6-16 Will l 00:00: Fluoxetine 2014-0 Yes Reg[facility] 1 capsule [facility] HCl 6-06 Will in the l 00:00: morning Clare 00 Megestrol 2014-0 Yes Regina 5 ml [facility] a Acetate 6-06 Will l 00:00: Clare 00 Hydrocodone 2013-0 Yes [facility] 1 tablet [facility] -Acetaminop 6-06 Will as needed l hen 00:00: Fluoxetine 2014-0 Yes Reg[facility] 1 capsule [facility] HCl 6-06 Will in the l 00:00: morning Megestrol 2013-0 Yes [facility] 5 ml Memori a Acetate 6-06 Will l 00:00: Clare 00 Hydrocodone 2013-0 Yes [facility] 1 tablet [facility] -Acetaminop 6-06 Will as needed l hen 00:00: Promethazin 2013-0 Yes [facility] 1 tablet [facility] e HCl 5-29 Will l 00:00: Promethazin 2013-0 Yes [facility] 1 tablet [facility] e HCl 5-29 Will l 00:00: Fluoxetine 2013-0 Yes [facility] 1 capsule [facility] HCl 5-28 Will in the l 00:00: morning tramadol 2013-0 Yes [facility] 1po Memoria 5-28 Will l 00:00: Quetiapine 2013-0 Yes Regina 1 tablet M emoria Fumarate 5-28 Will at bedtime l 00:00: Milnacipran 0 Yes [facility] 2 tablets [facility] HCl 5-28 Will l 00:00: Citalopram 2013-0 Yes [facility] 1 tablet M emoria Hydrobromid 5-28 Will l e 00:00: Naproxen 2013-0 Yes [facility] as [facility] Sodium 5-28 Will directed l 00:00: Meloxicam 2013-0 Yes [facility] 1 tablet Me moria 5-28 Will l 00:00: Ondansetron 2013-0 Yes [facility] as Chris carlos HCl 5-28 Will directed l 00:00: Tizanidine 2013-0 Yes Regina 1 tablet M emoria HCl 5-28 Will as needed l 00:00: Fluoxetine 2013-0 Yes Reg[facility] 1 capsule [facility] HCl 5-28 Will in the l 00:00: morning tramadol 2013-0 Yes Regina 1po Memoria 5-28 Will l 00:00: Quetiapine 2013-0 Yes Regina 1 tablet M emoria Fumarate 5-28 Will at bedtime l 00:00: Milnacipran 2013-0 Yes Reg[facility] 2 tablets [facility] HCl 5-28 Will l 00:00: Citalopram 2013-0 Yes Regina 1 tablet M emoria Hydrobromid 5-28 Will l e 00:00: Naproxen 2013- Yes Reg[facility] as [facility] Sodium 5-28 Will directed l 00:00: Meloxicam 2013- Yes Regina 1 tablet Me moria 5-28 Will l 00:00: Ondansetron 2013- Yes [facility] as Chris carlos HCl 5-28 Will directed l 00:00: Tizanidine 2013- Yes Regina 1 tablet M emoria HCl 5-28 Will as needed l 00:00: Fluoxetine Yes Regina 1 capsule [facility] HCl 5-05 Will in the l 00:00: morning Fluoxetine Yes Regina 1 capsule [facility] HCl 5-05 Will in the l 00:00: morning Ativan No 1 mg, Memoria 9-16 Lalit Route: IM, l 18:41: ONCE, Dosing Weight 42.727, kg, Priority: STAT, Start date: 01/12/12 13:41:00, Stop date: 01/12/12 13:41:00 Ativan No 1 mg, Memoria -16 Lalit Route: IM, l 18:41: ONCE, Dosing Weight 42.727, kg, Priority: STAT, Start date: 01/12/12 13:41:00, Stop date: 01/12/12 13:41:00 Xanax 0.25 No 0.25 mg, Memoria mg oral -la Route: PO, l tablet 18:32: Drug form: Alessandra nn 00 TAB, ONCE, Dosing Weight 42.727, kg, Priority: STAT, Start date: 01/12/12 13:32:00, Stop date: 01/12/12 13:32:00 Xanax 0.25 2011- No 0.25 mg, Memoria mg oral -la Route: PO, l tablet 18:32: Drug form: Alessandra nn 00 TAB, ONCE, Dosing Weight 42.727, kg, Priority: STAT, Start date: 01/12/12 13:32:00, Stop date: 01/12/12 13:32:00 Levofloxaci Levofloxaci 2014- No [facility] n n 9-11 [id number] [facility] (Levaquin) (Levaquin) 13:04: 00:00 Patient 500 Mg 500 Mg 00 :00 s TABLET TABLET Medical [place] Buspirone Buspirone 2019- No [address] Hcl Hcl 11-07 Day [facility] 16:50: 00:00 Patient 00 :00 s [facility] Cyproheptad Cyproheptad 2019- No 4 1-[address] ine Hcl ine Hcl 11-07 [facility] 16:50: 00:00 Patient 00 :00 [facility] Zolpidem Zolpidem 2019- No [address] Tartrate Tartrate 11-07 [facility] (Ambien) 10 (Ambien) 10 16:50: 00:00 Patient Mg TABLET Mg TABLET 00 :00 [facility] Vancomycin Vancomycin 2011- St[facility] 11-07 [facility] 16:50: 00:00 Patient 00 :00 [facility] Immunizations Ordered Immunization Filled Immunization Date Status Commen ts Source Name Name Covid-19 [employer] 2020-08-26 Completed [facility] SARS-CoV-2 Vaccination 00:00:00 Covid-19 Pfizer 2020-08-26 Completed [facility] SARS-CoV-2 Vaccination 00:00:00 Covid-19 Pfizer 2020-08-26 Completed [facility] SARS-CoV-2 Vaccination 00:00:00 Covid-19 Pfizer 2020-08-26 Completed [facility] SARS-CoV-2 Vaccination 00:00:00 Covid-19 Pfizer 2020-08-26 Completed [facility] SARS-CoV-2 Vaccination 00:00:00 Covid-19 Pfizer 2020-08-26 Completed [facility] SARS-CoV-2 Vaccination 00:00:00 Covid-19 Pfizer 2020-08-26 Completed [facility] SARS-CoV-2 Vaccination 00:00:00 Covid-19 Pfizer 2020-08-26 Completed [facility] SARS-CoV-2 Vaccination 00:00:00 Covid-19 Pfizer 2020-08-26 Completed [facility] SARS-CoV-2 Vaccination 00:00:00 Covid-19 Pfizer 2020-08-26 [facility] SARS-CoV-2 Vaccination 00:00:00 Covid-19 Pfizer 2020-08-26 Completed [facility] SARS-CoV-2 Vaccination 00:00:00 Covid-19 Pfizer 2020-08-26 Completed [facility] SARS-CoV-2 Vaccination 00:00:00 Covid-19 Pfizer 2020-08-26 Completed [facility] SARS-CoV-2 Vaccination 00:00:00 COVID-19 Pfizer & 2020-08-26 [facility] Vacc[facility] 00:00:00 Covid-19 Pfizer 2020-08-26 Completed [facility] SARS-CoV-2 Vaccination 00:00:00 Covid-19 Pfizer 2020-08-26 Completed [facility] SARS-CoV-2 Vaccination 00:00:00 Covid-19 Pfizer 2020-08-26 Completed [facility] SARS-CoV-2 Vaccination 00:00:00 Covid-19 Pfizer 2020-08-26 Completed [facility] SARS-CoV-2 Vaccination 00:00:00 Covid-19 Pfizer 2020-07-29 Completed [facility] SARS-CoV-2 Vaccination 00:00:00 Covid-19 Pfizer 2020-07-29 Completed [facility] SARS-CoV-2 Vaccination 00:00:00 Covid-19 Pfizer 2020-07-29 Completed [facility] SARS-CoV-2 Vaccination 00:00:00 Covid-19 Pfizer 2020-07-29 Completed [facility] SARS-CoV-2 Vaccination 00:00:00 Covid-19 Pfizer 2020-07-29 Completed [facility] SARS-CoV-2 Vaccination 00:00:00 Covid-19 Pfizer 2020-07-29 Completed [facility] SARS-CoV-2 Vaccination 00:00:00 Covid-19 Pfizer 2020-07-29 Completed [facility] SARS-CoV-2 Vaccination 00:00:00 Covid-19 Pfizer 2020-07-29 Completed [facility] SARS-CoV-2 Vaccination 00:00:00 Covid-19 Pfizer 2020-07-29 Completed [facility] SARS-CoV-2 Vaccination 00:00:00 Covid-19 Pfizer 2020-07-29 Completed [facility] SARS-CoV-2 Vaccination 00:00:00 Covid-19 Pfizer 2020-07-29 Completed [facility] SARS-CoV-2 Vaccination 00:00:00 Covid-19 Pfizer 2020-07-29 Completed [facility] SARS-CoV-2 Vaccination 00:00:00 Covid-19 Pfizer 2020-07-29 Completed [facility] SARS-CoV-2 Vaccination 00:00:00 Covid-19 Pfizer 2020-07-29 Completed [facility] SARS-CoV-2 Vaccination 00:00:00 Covid-19 Pfizer 2020-07-29 Completed [facility] SARS-CoV-2 Vaccination 00:00:00 COVID-19 Pfizer 12 & 2020-07-29 [facility] Vaccination 00:00:00 Covid-19 Pfizer 2020-07-29 Completed [facility] SARS-CoV-2 Vaccination 00:00:00 Covid-19 Pfizer 2020-07-29 Completed [facility] SARS-CoV-2 Vaccination 00:00:00 Tdap 2020-02-02 Completed [facility] 00:00:00 Tdap 2020-02-02 Completed [facility] 00:00:00 Tdap 2020-02-02 Completed [facility] 00:00:00 Tdap 2020-02-02 Completed [facility] 00:00:00 Tdap 2020-02-02 Completed [facility] 00:00:00 Tdap 2020-02-02 Completed [facility] 00:00:00 Tdap 2020-02-02 [facility]pleted [facility] 00:00:00 Tdap 2020-02-02 [facility]pleted [facility] 00:00:00 Tdap 2020-02-02 Completed [facility] 00:00:00 Tdap 2020-02-02 Completed [facility] 00:00:00 Tdap 2020-02-02 [facility]pleted [facility] 00:00:00 Tdap 2020-02-02 Completed [facility] 00:00:00 Tdap 2020-02-02 Completed [facility] 00:00:00 Tdap 2020-02-02 Completed [facility] 00:00:00 Tdap 2020-02-02 Completed [facility] 00:00:00 Tdap 2020-02-02 Completed [facility] 00:00:00 Tdap 2020-02-02 Completed [facility] 00:00:00 Tdap 2020-02-02 Completed [facility] 00:00:00 Influenza, injectable, 2019-12-28 Completed [facility] quadrivalent, 00:00:00 preservative free Influenza, injectable, 2019-12-28 Completed [facility] quadrivalent, 00:00:00 preservative free Influenza, injectable, 2019-12-28 Completed [facility] quadrivalent, 00:00:00 preservative free Influenza, injectable, 2019-12-28 Completed [facility] quadrivalent, 00:00:00 preservative free Influenza, injectable, 2019-12-28 Completed [facility] quadrivalent, 00:00:00 preservative free Influenza, injectable, 2019-12-28 Completed [facility] quadrivalent, 00:00:00 preservative free Influenza, injectable, 2019-12-28 Completed [facility] quadrivalent, 00:00:00 preservative free Influenza, injectable, 2019-12-28 Completed [facility] quadrivalent, 00:00:00 preservative free Influenza, injectable, 2019-12-28 Completed [facility] quadrivalent, 00:00:00 preservative free Influenza, injectable, 2019-12-28 Completed [facility] quadrivalent, 00:00:00 preservative free Influenza, injectable, 2019-12-28 Completed [facility] quadrivalent, 00:00:00 preservative free Influenza, injectable, 2019-12-28 Completed [facility] quadrivalent, 00:00:00 preservative free Influenza, injectable, 2019-12-28 Completed [facility] quadrivalent, 00:00:00 preservative free Influenza, injectable, 2019-12-28 Completed [facility] quadrivalent, 00:00:00 preservative free Influenza, injectable, 2019-12-28 Completed [facility] quadrivalent, 00:00:00 preservative free Influenza, injectable, 2019-12-28 Completed [facility] quadrivalent, 00:00:00 preservative free Influenza, injectable, 2019-12-28 Completed [facility] quadrivalent, 00:00:00 preservative free Influenza, injectable, 2019-12-28 Completed [facility] quadrivalent, 00:00:00 preservative free Influenza, injectable, 2019-02-15 Completed [facility], preservative 00:00:00 free, quadrivalent Influenza, injectable, 2019-02-15 Completed [facility], preservative 00:00:00 free, quadrivalent Influenza, injectable, 2019-02-15 Completed [facility]CK, preservative 00:00:00 free, quadrivalent Influenza, injectable, 2019-02-15 Completed [facility]CK, preservative 00:00:00 free, quadrivalent Influenza, injectable, 2019-02-15 Completed [facility]CK, preservative 00:00:00 free, quadrivalent Influenza, injectable, 2019-02-15 Completed [facility] MDCK, preservative 00:00:00 free, quadrivalent Influenza, injectable, 2019-02-15 Completed [facility] MDCK, preservative 00:00:00 free, quadrivalent Influenza, injectable, 2019-02-15 Completed [facility] MDCK, preservative 00:00:00 free, quadrivalent Influenza, injectable, 2019-02-15 Completed [facility] MDCK, preservative 00:00:00 free, quadrivalent Influenza, injectable, 2019-02-15 Completed [facility] MDCK, preservative 00:00:00 free, quadrivalent Influenza, injectable, 2019-02-15 Completed [facility] MDCK, preservative 00:00:00 free, quadrivalent Influenza, injectable, 2019-02-15 Completed [facility] MDCK, preservative 00:00:00 free, quadrivalent Influenza, injectable, 2019-02-15 Completed [facility] MDCK, preservative 00:00:00 free, quadrivalent Influenza, injectable, 2019-02-15 Completed [facility] MDCK, preservative 00:00:00 free, quadrivalent Influenza, injectable, 2019-02-15 Completed [facility] MDCK, preservative 00:00:00 free, quadrivalent Influenza, injectable, 2019-02-15 Completed [facility] MDCK, preservative 00:00:00 free, quadrivalent Influenza, injectable, 2019-02-15 Completed [facility] MDCK, preservative 00:00:00 free, quadrivalent Influenza, injectable, 2019-02-15 Completed [facility] MDCK, preservative 00:00:00 free, quadrivalent Pneumococcal Conjugate 2018-07-03 Completed [facility] PCV 13 00:00:00 Pneumococcal Conjugate 2018-07-03 Completed [facility] [facility] 13 00:00:00 Pneumococcal Conjugate 2018-07-03 Completed [facility] PCV 13 00:00:00 Pneumococcal Conjugate 2018-07-03 Completed [facility] PCV 13 00:00:00 Pneumococcal Conjugate 2018-07-03 Completed [facility] PCV 13 00:00:00 Pneumococcal Conjugate 2018-07-03 Completed [facility] PCV 13 00:00:00 Pneumococcal Conjugate 2018-07-03 Completed [facility] PCV 13 00:00:00 Pneumococcal Conjugate 2018-07-03 Completed [facility] PCV 13 00:00:00 Pneumococcal Conjugate 2018-07-03 Completed [facility] PCV 13 00:00:00 Pneumococcal Conjugate 2018-07-03 Completed [facility] PCV 13 00:00:00 Pneumococcal Conjugate 2018-07-03 Completed [facility] PCV 13 00:00:00 Pneumococcal Conjugate 2018-07-03 Completed [facility] PCV 13 00:00:00 Pneumococcal Conjugate 2018-07-03 Completed [facility] PCV 13 00:00:00 Pneumococcal Conjugate 2018-07-03 Completed [facility] PCV 13 00:00:00 Pneumococcal Conjugate 2018-07-03 Completed [facility] PCV 13 00:00:00 Pneumococcal Conjugate 2018-07-03 Completed [facility] PCV 13 00:00:00 Pneumococcal Conjugate 2018-07-03 Completed [facility] PCV 13 00:00:00 Pneumococcal Conjugate 2018-07-03 Completed [facility] PCV 13 00:00:00 Influenza, injectable, 2018-03-06 Completed [facility], 00:00:00 preservative free Influenza, injectable, 2018-03-06 Completed [facility], 00:00:00 preservative free Influenza, injectable, 2018-03-06 Completed [facility], 00:00:00 preservative free Influenza, injectable, 2018-03-06 Completed [facility], 00:00:00 preservative free Influenza, injectable, 2018-03-06 Completed [facility], 00:00:00 preservative free Influenza, injectable, 2018-03-06 Completed [facility], 00:00:00 preservative free Influenza, injectable, 2018-03-06 Completed [facility], 00:00:00 preservative free Influenza, injectable, 2018-03-06 Completed [facility], 00:00:00 preservative free Influenza, injectable, 2018-03-06 Completed [facility], 00:00:00 preservative free Influenza, injectable, 2018-03-06 Completed [facility], 00:00:00 preservative free Influenza, injectable, 2018-03-06 Completed [facility], 00:00:00 preservative free Influenza, injectable, 2018-03-06 Completed [facility], 00:00:00 preservative free Influenza, injectable, 2018-03-06 Completed [facility], 00:00:00 preservative free Influenza, injectable, 2018-03-06 Completed [facility], 00:00:00 preservative free Influenza, injectable, 2018-03-06 Completed [facility], 00:00:00 preservative free Influenza, injectable, 2018-03-06 Completed [facility], 00:00:00 preservative free Influenza, injectable, 2018-03-06 Completed [facility], 00:00:00 preservative free Influenza, injectable, 2018-03-06 Completed [facility], 00:00:00 preservative free Influenza, injectable, 2017-02-17 Completed [facility], 00:00:00 preservative free Influenza, injectable, 2017-02-17 Completed [facility], 00:00:00 preservative free Influenza, injectable, 2017-02-17 Completed [facility], 00:00:00 preservative free Influenza, injectable, 2017-02-17 Completed [facility], 00:00:00 preservative free Influenza, injectable, 2017-02-17 Completed [facility], 00:00:00 preservative free Influenza, injectable, 2017-02-17 Completed [facility], 00:00:00 preservative free Influenza, injectable, 2017-02-17 Completed [facility], 00:00:00 preservative free Influenza, injectable, 2017-02-17 Completed [facility], 00:00:00 preservative free Influenza, injectable, 2017-02-17 Completed [facility], 00:00:00 preservative free Influenza, injectable, 2017-02-17 Completed [facility], 00:00:00 preservative free Influenza, injectable, 2017-02-17 Completed [facility], 00:00:00 preservative free Influenza, injectable, 2017-02-17 Completed [facility], 00:00:00 preservative free Influenza, injectable, 2017-02-17 Completed [facility], 00:00:00 preservative free Influenza, injectable, 2017-02-17 Completed [facility], 00:00:00 preservative free Influenza, injectable, 2017-02-17 Completed [facility], 00:00:00 preservative free Influenza, injectable, 2017-02-17 Completed [facility], 00:00:00 preservative free Influenza, injectable, 2017-02-17 Completed [facility], 00:00:00 preservative free Influenza, injectable, 2017-02-17 Completed [facility], 00:00:00 preservative free Influenza, injectable, 2016-01-30 Completed [facility], 00:00:00 preservative free, pediatric Pneumococcal 2016-01-30 Completed [facility] Polysaccharide PPV23 00:00:00 Influenza, injectable, 2016-01-30 Completed [facility], 00:00:00 preservative free, pediatric Pneumococcal 2016-01-30 Completed [facility] Polysaccharide PPV23 00:00:00 Influenza, injectable, 2016-01-30 Completed [facility], 00:00:00 preservative free, pediatric Pneumococcal 2016-01-30 Completed [facility] Polysaccharide PPV23 00:00:00 Influenza, injectable, 2016-01-30 Completed [facility], 00:00:00 preservative free, pediatric Pneumococcal 2016-01-30 Completed [facility] Polysaccharide PPV23 00:00:00 Influenza, injectable, 2016-01-30 Completed [facility], 00:00:00 preservative free, pediatric Pneumococcal 2016-01-30 Completed [facility] Polysaccharide PPV23 00:00:00 Influenza, injectable, 2016-01-30 Completed [facility], 00:00:00 preservative free, pediatric Pneumococcal 2016-01-30 Completed [facility] Polysaccharide PPV23 00:00:00 Influenza, injectable, 2016-01-30 Completed [facility], 00:00:00 preservative free, pediatric Pneumococcal 2016-01-30 Completed [facility] Polysaccharide PPV23 00:00:00 Influenza, injectable, 2016-01-30 Completed [facility], 00:00:00 preservative free, pediatric Pneumococcal 2016-01-30 Completed [facility] Polysaccharide PPV23 00:00:00 Influenza, injectable, 2016-01-30 Completed [facility], 00:00:00 preservative free, pediatric Pneumococcal 2016-01-30 Completed [facility] Polysaccharide PPV23 00:00:00 Influenza, injectable, 2016-01-30 Completed [facility], 00:00:00 preservative free, pediatric Pneumococcal 2016-01-30 Completed [facility] Polysaccharide PPV23 00:00:00 Influenza, injectable, 2016-01-30 Completed [facility], 00:00:00 preservative free, pediatric Pneumococcal 2016-01-30 Completed [facility] Polysaccharide PPV23 00:00:00 Influenza, injectable, 2016-01-30 Completed [facility], 00:00:00 preservative free, pediatric Pneumococcal 2016-01-30 Completed [facility] Polysaccharide PPV23 00:00:00 Influenza, injectable, 2016-01-30 Completed [facility], 00:00:00 preservative free, pediatric Pneumococcal 2016-01-30 Completed [facility] Polysaccharide PPV23 00:00:00 Influenza, injectable, 2016-01-30 Completed [facility], 00:00:00 preservative free, pediatric Pneumococcal 2016-01-30 Completed [facility] Polysaccharide PPV23 00:00:00 Influenza, injectable, 2016-01-30 Completed [facility], 00:00:00 preservative free, pediatric Pneumococcal 2016-01-30 Completed [facility] Polysaccharide PPV23 00:00:00 Influenza, injectable, 2016-01-30 Completed [facility], 00:00:00 preservative free, pediatric Pneumococcal 2016-01-30 Completed [facility] Polysaccharide PPV23 00:00:00 Influenza, injectable, 2016-01-30 Completed [facility], 00:00:00 preservative free, pediatric Pneumococcal 2016-01-30 Completed [facility] Polysaccharide PPV23 00:00:00 Influenza, injectable, 2016-01-30 Completed [facility], 00:00:00 preservative free, pediatric Pneumococcal 2016-01-30 Completed [facility] Polysaccharide PPV23 00:00:00 Influenza, injectable, 2015-02-09 Completed [facility], 00:00:00 preservative free Influenza, injectable, 2015-02-09 Completed [facility], 00:00:00 preservative free Influenza, injectable, 2015-02-09 Completed [facility], 00:00:00 preservative free Influenza, injectable, 2015-02-09 Completed [facility], 00:00:00 preservative free Influenza, injectable, 2015-02-09 Completed [facility], 00:00:00 preservative free Influenza, injectable, 2015-02-09 Completed [facility], 00:00:00 preservative free Influenza, injectable, 2015-02-09 Completed [facility], 00:00:00 preservative free Influenza, injectable, 2015-02-09 Completed [facility], 00:00:00 preservative free Influenza, injectable, 2015-02-09 Completed [facility], 00:00:00 preservative free Influenza, injectable, 2015-02-09 Completed [facility], 00:00:00 preservative free Influenza, injectable, 2015-02-09 Completed [facility], 00:00:00 preservative free Influenza, injectable, 2015-02-09 Completed [facility], 00:00:00 preservative free Influenza, injectable, 2015-02-09 Completed [facility], 00:00:00 preservative free Influenza, injectable, 2015-02-09 Completed [facility], 00:00:00 preservative free Influenza, injectable, 2015-02-09 Completed [facility], 00:00:00 preservative free Influenza, injectable, 2015-02-09 Completed [facility], 00:00:00 preservative free Influenza, injectable, 2015-02-09 Completed [facility], 00:00:00 preservative free Influenza, injectable, 2015-02-09 Completed [facility], 00:00:00 preservative free Influenza, seasonal, 2014-02-01 [facility]:00 Influenza, seasonal, 2014-02-01 [facility] 00:00:00 Influenza, seasonal, 2014-02-01 [facility] 00:00:00 Influenza, seasonal, 2014-02-01 [facility] 00:00:00 Influenza, seasonal, 2014-02-01 [facility] 00:00:00 Influenza, seasonal, 2014-02-01 [facility] 00:00:00 Influenza, seasonal, 2014-02-01 [facility] 00:00:00 Influenza, seasonal, 2014-02-01 [facility] 00:00:00 Influenza, seasonal, 2014-02-01 [facility] 00:00:00 Influenza, seasonal, 2014-02-01 [facility] 00:00:00 Influenza, seasonal, 2014-02-01 [facility] 00:00:00 Influenza, seasonal, 2014-02-01 [facility] 00:00:00 Influenza, seasonal, 2014-02-01 [facility] 00:00:00 Influenza, seasonal, 2014-02-01 [facility] 00:00:00 Influenza, seasonal, 2014-02-01 [facility] 00:00:00 Influenza, seasonal, 2014-02-01 [facility] 00:00:00 Influenza, seasonal, 2014-02-01 [facility] 00:00:00 Influenza, seasonal, 2014-02-01 [facility] 00:00:00 Tdap 2012-08-12 [facility]pleted [facility] 00:00:00 Tdap 2012-08-12 [facility]pleted [facility] 00:00:00 Tdap 2012-08-12 Completed [facility] 00:00:00 Tdap 2012-08-12 Completed [facility] 00:00:00 Tdap 2012-08-12 Completed [facility] 00:00:00 Tdap 2012-08-12 Completed [facility] 00:00:00 Tdap 2012-08-12 Completed [facility] 00:00:00 Tdap 2012-08-12 Completed [facility] 00:00:00 Tdap 2012-08-12 Completed [facility] 00:00:00 Tdap 2012-08-12 Completed [facility] 00:00:00 Tdap 2012-08-12 Completed [facility] 00:00:00 Tdap 2012-08-12 Completed [facility] 00:00:00 Tdap 2012-08-12 Completed [facility] 00:00:00 Tdap 2012-08-12 Completed [facility] 00:00:00 Vital Signs Vital Name Observation Time Observation Value Comments Source Oxygen saturation by 2021-11-19 17:20:00 99 /min [facility] Pulse oximetry Patient [facility] Oxygen saturation by 2021-11-19 14:48:00 99 /min [facility] Patient [facility] Height 2021-11-19 14:48:00 149.869984 cm [facility] Weight 2021-11-19 14:48:00 39.899000 kg [facility] BMI (Body Mass Index) 2021-11-19 14:48:00 17.8 kg/m2 [facility] Oxygen saturation by 2021-05-25 13:02:00 100 /min [facility] Pulse oximetry Patient [facility] BP Diastolic 2021-05-25 13:02:00 65 mm[Hg] [facility] Oxygen saturation by 2021-05-25 12:57:00 100 /min [facility] Pulse oximetry Patient [facility] BP Diastolic 2021-05-25 12:57:00 68 mm[Hg] [facility] Oxygen saturation by 2021-05-25 10:07:00 97 /min [facility] Pulse oximetry Patient [facility] BP Diastolic 2021-05-25 10:07:00 67 mm[Hg] [facility] Patient [facility] Oxygen saturation by 2021-05-25 09:18:00 97 /min [facility] Pulse oximetry Patient [facility] Oxygen saturation by 2021-05-25 05:00:00 97 /min [facility] Pulse oximetry Patient [facility] BP Diastolic 2021-05-25 05:00:00 67 mm[Hg] [facility] Oxygen saturation by 2021-05-25 01:00:00 99 /min [facility] Pulse oximetry Patient [facility] BP Diastolic 2021-05-25 01:00:00 85 mm[Hg] [facility] Patient [facility] Oxygen saturation by 2021-05-24 20:24:00 99 /min [facility] Pulse oximetry Patient [facility] BP Diastolic 2021-05-24 20:24:00 78 mm[Hg] [facility] Patient [facility] Oxygen saturation by 2021-05-24 20:20:00 97 /min [facility] Pulse oximetry Patient [facility] BP Diastolic 2021-05-24 20:20:00 78 mm[Hg] [facility] Patient [facility] Oxygen saturation by 2021-05-24 20:17:00 97 /min [facility] Pulse oximetry Patient [facility] Oxygen saturation by 2021-05-24 19:17:00 100 /min [facility] Pulse oximetry Patient [facility] Oxygen saturation by 2021-05-24 17:49:00 99 /min [facility] Pulse oximetry Patient [facility] Oxygen saturation by 2021-05-24 17:20:00 100 /min [facility] Pulse oximetry Patient [facility] Oxygen saturation by 2021-05-25 12:02:00 100 /min [facility] Pulse oximetry Patient [facility] BP Diastolic 2021-05-25 12:02:00 65 mm[Hg] [facility] Oxygen saturation by 2021-05-25 11:57:00 100 /min [facility] Pulse oximetry Patient [facility] BP Diastolic 2021-05-25 11:57:00 68 mm[Hg] [facility] Patient [facility] Oxygen saturation by 2021-05-25 09:07:00 97 /min [facility] Pulse oximetry Patient [facility] BP Diastolic 2021-05-25 09:07:00 67 mm[Hg] [facility] Oxygen saturation by 2021-05-25 08:18:00 97 /min [facility] Pulse oximetry Patient [facility] Oxygen saturation by 2021-05-25 04:00:00 97 /min [facility] Pulse oximetry Patient [facility] BP Diastolic 2021-05-25 04:00:00 67 mm[Hg] [facility] Oxygen saturation by 2021-05-25 00:00:00 99 /min [facility] Pulse oximetry Patient [facility] BP Diastolic 2021-05-25 00:00:00 85 mm[Hg] [facility] Oxygen saturation by 2021-05-24 19:24:00 99 /min [facility] Pulse oximetry Patient [facility] BP Diastolic 2021-05-24 19:24:00 78 mm[Hg] [facility] Oxygen saturation by 2021-05-24 19:20:00 97 /min [facility] Pulse oximetry Patient [facility] BP Diastolic 2021-05-24 19:20:00 78 mm[Hg] [facility] Weight 2021-05-24 19:20:00 39.094312 kg [facility] BMI (Body Mass Index) 2021-05-24 19:20:00 17.8 kg/m2 [facility] Oxygen saturation by 2021-05-24 19:17:00 97 /min [facility] Pulse oximetry Patient [facility] Oxygen saturation by 2021-05-24 18:17:00 100 /min [facility] Pulse oximetry Patient [facility] Oxygen saturation by 2021-05-24 16:49:00 99 /min [facility] Pulse oximetry Patient [facility] Oxygen saturation by 2021-05-24 16:20:00 100 /min [facility] Pulse oximetry Patient [facility] Oxygen saturation by 2020-10-20 19:13:00 99 /min [facility] Pulse oximetry Patient [facility] Systolic blood 2020-10-17 15:34:00 133 mm[Hg[facility] Diastolic blood 2020-10-17 15:34:00 85 mm[Hg] [facility] Heart rate 2020-10-17 15:34:00 71 /[facility] Body temperature 2020-10-17 15:34:00 36.78 [facility] Respiratory rate 2020-10-17 15:34:00 16 /min [facility] Body height 2020-10-17 15:34:00 144.8 cm [facility] Body weight 2020-10-17 15:34:00 [facility]442 [facility] BMI 2020-10-17 15:34:00 23.59 kg[facility]m2 [facility] Systolic blood 2020-10-17 15:34:00 133 mm[Hg] [facility] pressure Diastolic blood 2020-10-17 15:34:00 85 mm[Hg] [facility] pressure Heart rate 2020-10-17 15:34:00 71 /min [facility] Body temperature 2020-10-17 15:34:00 36.78 [facility] Respiratory rate 2020-10-17 15:34:00 16 /min [facility] Body height 2020-10-17 15:34:00 144.8 cm [facility] Body weight 2020-10-17 15:34:00 [facility].442 [facility] BMI 2020-10-17 15:34:00 23.59 [facility]m2 [facility] Oxygen saturation by 2020-10-20 19:13:00 99 /min [facility] Pulse oximetry Patient [facility] Body Temperature 2019-08-27 12:00:00 96.6 [degF] [facility] Weight 2019-08-27 06:28:00 141.40 [lb_av] [facility] BMI (Body Mass Index) 2019-08-27 06:28:00 28.6 kg/m2 [facility] Weight 2013-10-25 19:00:00 [facility] Height 2013-10-25 19:00:00 [facility] Temperature Oral (F) 2013-10-25 19:00:00 98.6 F [facility] Heart Rate 2013-10-25 19:00:00 [facility] Diastolic (mm Hg) 2013-10-25 19:00:00 [facility] Systolic (mm Hg) 2013-10-25 19:00:00 [facility] Weight 2013-10-01 14:15:00 [facility] Height 2013-10-01 14:15:00 [facility] Temperature Oral (F) 2013-10-01 14:15:00 98.6 F [facility] Heart Rate 2013-10-01 14:15:00 [facility] Diastolic (mm Hg) 2013-10-01 14:15:00 [facility] Systolic (mm Hg) 2013-10-01 14:15:00 [facility] Weight 2013-09-22 18:00:00 [facility] Height 2013-09-22 18:00:00 [facility] Temperature Oral (F) 2013-09-22 18:00:00 98.4 F [facility] Heart Rate 2013-09-22 18:00:00 [facility] Diastolic (mm Hg) 2013-09-22 18:00:00 [facility] Systolic (mm Hg) 2013-09-22 18:00:00 [facility] Weight 2012-01-12 16:23:00 [facility] Height 2012-01-12 16:23:00 149.86 cm [facility] Procedures Procedure Date / Time Performed Performing Clinician [facility] e Computed tomography of 2021-11-19 00:00:[facility] contrast Plan of Care Planned Activity Planned Date Details Comments Source Instructions Wound Care (General) [facility] Instructions Generalized Anxiety [facility] Patient Disorder [facility] Instructions Headache [facility] Instructions Generalized Anxiety [facility] Patient Disorder [facility] Instructions Chest Pain - Chest Wall [facility] Instructions Chest Pain - Chest Wall [facility] Instructions Dyspnea [facility] Instructions Peripheral Neuropathy [facility] Instructions Nonspecific Chest Pain, [facility] Patient Adult, [id number] Instructions Preventing Consequences of [facility] Patient Unhealthy [facility] Behaviors, Adult Encounters Start End Encounter Admission Attending Care Care Encounter Source Date/Time Date/Time Type Type Clinicians Facility Department ID 2021-12-20 Outpatient [facility] [id number] [place] 14:09:[address] [place] [address] 2021-05-29 Inpatient JHONATAN Regan [facility] [id number] [facility] 00:03:00 [place] [id number] [facility] 2021-05-01 Outpatient JHONATAN Snow [facility] [id number] [facility] 09:00:40 [place] 87 [facility] 2021-01-04 Outpatient NAMITA [facility] [id number] [place] 12:27:47 [facility] 2020-11-21 Outpatient [facility] [id number] [place] 10:36:52 [facility] 2020-11-07 Out[facility] [id number] [place] 13[facility]41:11 [facility] 2020-11-07 Out[facility] [id number] [place] 13:39:52 [facility] 2020-10-20 Inpatient [facility] [id number] [facility] [id number] [facility] 2020-10-16 [facility] [id number] [place] 09:55:29 [facility] 2020-10-02 Outpatient [facility] [id number] [place] 13:11:14 [facility] 2020-09-02 Outpatient [facility] [id number] [place] 03:57:11 [facility] 2020-04-26 Inpatient [facility] [id number] [facility] 18:47:00 [facility] 2020-02-03 Inpatient [facility] [id number] [facility] 19:54:00 [facility] 2019-11-23 Inpatient [facility] [id number] [facility] 10:52:00 [id number] [facility] 2019-11-19 [facility] [id number] [facility] 16:22:00 [id number] [facility] 2021-12-12 2021-12-14 Inpatient JHONATAN Little [facility] [id number] [facility] 09:59:00 11:36:00 Kun 74 [facility] 2021-11-19 2021-11-19 Departed [facility] [id number] St. 14:49:00 19:15:00 Emergency Patients [id number] [facility] [id number] Marcello walton [id number] [facility] 2021-11-19 2021-11-19 Outpatient 1 PATEL [facility] A0 [id number] [facility] 14:49:00 19:15:00 JO-ANN Patients Patients 86 [facility] 2021-11-19 2021-11-19 Emergency [facility] [id number] 13:49:00 18:15:00 -[id number] [facility] 2021-05-01 2021-05-28 Outpatient JHONATAN Regan [facility] [id number] [facility] 08:18:00 00:00:00 Go [id number] [facility] 2021-05-24 2021-05-25 Discharged [facility] [id number] St. 19:02:00 14:39:00 Inpatient Patients [id number] [facility] (obs) [facility] [id number] Marcello walton [id number] [facility] 2021-05-24 2021-05-25 Inpatient [facility] [id number] 18:02:00 13:39:00 -[id number] [facility] 2021-05-24 2021-05-25 Outpatient Mei [facility] A [id number] [facility] 18:02:00 13:39:00 Jayce Patients Patients 76 [facility] 2021-03-28 2021-03-29 Emergency EM JHONATAN Mcarthur [id number] [facility] 23:27:00 01:10:00 Luis A [id number] [facility] 2021-03-28 2021-03-29 Emergency EM JHONATAN Mcarthur [facility] [id number] [facility] 23:27:00 01:10:00 Luis A 07 [facility] 2021-02-16 2021-02-16 Orders Daily Zazueta UTP 1.2.840.114 12 [id number] [place] 00:00:00 00:00:00 Only Daily Zazueta 350.1.13.58 Health CLINIC 9.2.7.2.686 [id number] 1 2021-01-08 2021-01-08 Emergency EM JHONATAN Schwarz [facility] [id number] [facility] 16:52:00 17:56:00 Joseph [id number] [facility] 2021-01-08 2021-01-08 Telephone DEANGELO Zarate 1.2.926.823 [id number] 00:00:00 00:00:00 Alphonse [facility] 350.1.13.58 CLINIC 9.2.7.2.686 [id number] 1 2021-01-08 2021-01-08 Telephone DEANGELO Zarate 1.2.755.981 [id number] [id number] [place] 00:00:00 00:00:00 Alphonse [facility] 350.1.13.58 [facility] 9.2.7.2.686 [id number] 1 2021-01-08 2021-01-08 Telephone DEANGELO Zarate 1.2.276.907 [id number] [place] 00:00:00 00:00:00 Alphonse [facility] 350.1.13.58 [facility] 9.2.7.2.686 [id number] 1 2021-01-04 2021-01-04 Abstract DEANGELO Breaux 1.2.840.114 [id number] 1157 00:00:00 00:00:00 [facility].1.13.58 [facility] 9.2.7.2.686 [id number] 1 2021-01-04 2021-01-04 Abstract DEANGELO Breaux 1.2.840.114 [id number] 1157 [place] 00:00:00 00:00:00 Janice BRADY 350.1.13.58 H [facility] CLINIC 9.2.7.2.686 [id number] 1 2020-12-28 2020-12-28 Zuleima Zarate UTP 1.2.840.114 [id number] 00:00:00 00:00:00 Alphonse BRADY 350.1.13.58 MULTI 9.2.7.2.686 SPECIALTY [id number] CLINIC 7 2020-12-28 2020-12-28 Zuleima Zarate UTP 1.2.840.114 [id number] UT 00:00:00 00:00:00 Alphonse BRADY 350.1.13.58 [facility] MULTI 9.2.7.2.686 SPECIALTY [id number] CLINIC 7 2020-12-07 2020-12-07 Orders Daily Zazueta UTP 1.2.840.114 12 [id number] 00:00:00 00:00:00 Only JOSE ANTONIO 350.1.13.58 CLINIC 9.2.7.2.686 [id number] 1 2020-12-07 2020-12-07 Orders Daily Zazueta UTP 1.2.840.114 12 [id number] UT 00:00:00 00:00:00 Only Daily Zazueta 350.1.13.58 Health CLINIC 9.2.7.2.686 [id number] 1 2020-12-01 2020-12-01 Telephone Daily Zazueta 1.2.840.114 [id number] 00:00:00 00:00:00 JOSE ANTONIO 350.1.13.58 CLINIC 9.2.7.2.686 [id number] 1 2020-12-01 2020-12-01 Telephone Daily Zazueta UTP 1.2.840.114 [id number] UT 00:00:00 00:00:00 Daily Zazueta 350.1.13.58 Health CLINIC 9.2.7.2.686 [id number] 1 2020-11-27 2020-11-27 Abstract Anai Zheng 1.2.840 .114 [id number] DC 00:00:00 00:00:00 Anai Zheng 350.1.13.58 Health CENTER 9.2.7.2.686 [id number] 1 2020-11-27 2020-11-27 Abstract DEANGELO Zheng 1.2.542.479 7901 69150 00:00:00 00:00:00 Anai OSWALD 350.1.13.58 CENTER 9.2.7.2.686 [id number] 1 2020-11-16 2020-11-16 Abstract DEANGELO Zheng 1.2.900.103 1214 [id number] 00:00:00 00:00:00 Anai OSWALD 350.1.13.58 CENTER 9.2.7.2.686 [id number] 1 2020-11-16 2020-11-16 Abstract Anai Zheng 1.2.840 .114 [id number] DC 00:00:00 00:00:00 Anai Zheng 350.1.13.58 Health CENTER 9.2.7.2.686 [id number] 1 2020-10-23 2020-10-23 Orders Daily Zazueta 1.2.840.114 12 [id number] 00:00:00 00:00:00 Only [facility] 350.1.13.58 CLINIC 9.2.7.2.686 [id number] 1 2020-10-23 2020-10-23 Orders Daily Zazueta 1.2.840.114 12 [id number] DC 00:00:00 00:00:00 Only Daily Zazueta 350.1.13.58 Health CLINIC 9.2.7.2.686 [id number] 1 2020-10-20 2020-10-20 [facility] [id number] 19:15:00 19:20:00 Emergency Patients 95 [facility] 2020-10-20 2020-10-20 Departed [facility] [id number] 19:15:00 19:20:00 Emergency Patients [id number] [facility] [id number] Marcello walton [id number] [facility] 2020-10-20 2020-10-20 Telephone Daily Zazueta 1.2.840.114 [id number] 00:00:00 00:00:00 BAYORE 350.1.13.58 CLINIC 9.2.7.2.686 [id number] 1 2020-10-20 2020-10-20 Telephone Daily Zazueta 1.2.840.114 [id number] [place] 00:00:00 00:00:00 UsDaily lynn 350.1.13.58 Health CLINIC 9.2.7.2.686 [id number] 1 2020-10-18 2020-10-18 Telephone DEANGELO Avilez 1.2.151.260 [id number] 00:00:00 00:00:00 Triny BRADY 350.1.13.58 MULTI 9.2.7.2.686 SPECIALTY [id number] CLINIC 7 2020-10-18 2020-10-18 Telephone Triny Avilez 1.2.84 0.114 [id number] DC 00:00:00 00:00:00 Triny Avilez 350.1.13.58 Health MULTI 9.2.7.2.686 SPECIALTY [id number] CLINIC 7 2020-10-17 2020-10-17 Office DEANGELO Zarate 1.2.840.114 [id number] 613 09:56:52 11:11:17 Visit Alphonse BRADY 350.1.13.58 MULTI 9.2.7.2.686 SPECIALTY [id number] CLINIC 7 2020-10-17 2020-10-17 Office DEANGELO Zarate 1.2.840.114 [id number] UT 09:56:52 11:11:17 Visit Alphonse BRADY 350.1.13.58 H ealth MULTI 9.2.7.2.686 SPECIALTY [id number] CLINIC 7 2020-10-17 2020-10-17 EXT MHH OP Zarate, EXT MSRDP 1.2.840.114 1 [id number] [place] 00:00:00 00:00:00 Alphonse LOCATION 350.1.13.58 H ealth 9.2.7.2.686 [id number] 0 2020-10-17 2020-10-17 EXT MHH OP Arcenio, EXT MSRDP 1.2.840.114 1 [id number] UT 00:00:00 00:00:00 Alphonse LOCATION 350.1.13.58 H ealth 9.2.7.2.686 [id number] 0 2019-11-19 2019-11-19 Outpatient JEANNINE Kimball LABO [id number] [facility] 17:47:00 17:47:00 Jayme [id number] [facility] 2019-09-24 2019-09-24 Outpatient [facility] [id number] 10:32:00 10:32:00 -[id number] [facility] 2019-08-25 2019-08-27 Discharged 1 [facility] [id number] 15:40:00 13:36:00 Inpatient KUN Patients 27 Jeffry es (obs) [facility] 2019-08-25 2019-08-25 Emergency [facility] [id number] 12:43:00 12:43:00 -[id number] [facility] 2019-07-14 2019-07-16 Discharged 1 [facility] X2789 [id number] 16:25:00 10:50:00 Inpatient KUN Patients 19 Jeffry es (obs) [facility] 2019-07-14 2019-07-14 Emergency [facility] [id number] 15:11:00 15:11:00 -[id number] [facility] 2018-07-16 2018-07-16 Departed [facility] [id number] 11:44:00 15:48:00 Emergency 96 [facility] 2017-11-22 2017-11-22 [facility]ed 1 [facility] [id number] 15:48:00 20:25:00 Emergency LEROY 73 [facility] 2013-11-23 2013-11-23 Other nullFlavo [facility] dbbe3 493-4 Memoria 14:08:00 14:08:00 r Primary 76c-41ca-8 l Care a8f-t9we41 Alessandra nn [id number] 2013-11-23 2013-11-23 Other nullFlavo [facility] dbbe3 493-4 Memoria 14:08:00 14:08:00 r Primary 76c-41ca-8 l Care g4z-k6cn19 Alessandra nn [id number] 2013-11-23 2013-11-23 Outpatient [facility] 2477 2 eClinic 09:08:00 09:08:00 [facility] Primary alWork s Primary Care Care 2013-10-25 2013-10-25 sick f/u nullFlavo [facility] 52fe 7448-d Memoria 19:00:00 19:00:00 visit r Primary 9ca-46a8-a l Care 25c-68c325 Alessandra vasquez a77b17 2013-10-25 2013-10-25 sick f/u nullFlavo [facility] 292b ae9e-8 Memoria 19:00:00 19:00:00 visit r Primary 945-4621-b l Care 657-f74f0c Alessandra vasquez febb 2013-10-25 2013-10-25 sick f/u nullFlavo [facility] 52fe 7448-d Memoria 19:00:00 19:00:00 visit r Primary 9ca-46a8-a l Care 25c-60g417 Alessandra nn a77b17 2013-10-25 2013-10-25 sick f/u nullFlavo [facility] 292b ae9e-8 Memoria 19:00:00 19:00:00 visit r Primary 945-4621-b l Care 657-f74f0c Alessandra vasquez febbfa 2013-10-25 2013-10-25 Outpatient [facility] 2452 7 eClinic 14:00:00 14:00:00 [facility] Primary alWork s Primary Care Care 2013-10-11 2013-10-11 Other nullFlavo [facility] b5539 4be-f Memoria 16:08:00 16:08:00 r Primary 1x2-243u-4 l Care 9bb-0a9c19 Alessandra nn 2z4559 2013-10-11 2013-10-11 Other nullFlavo [facility] 23987 f58-5 Memoria 16:08:00 16:08:00 r Primary 085-4a47-9 l Care 63e-e2c5c9 Alessandra nn e6fbe4 2013-10-11 2013-10-11 Other nullFlavo [facility] 5f097 f86-3 Memoria 16:08:00 16:08:00 r Primary e52-998h-7 l Care 8f6-q7q67b Alessandra nn 6d5be2 2013-10-11 2013-10-11 Other nullFlavo [facility] 9098a d0b-8 Memoria 16:08:00 16:08:00 r Primary 335-447a-9 l Care ada-38r318 Alessandra nn 94e08e 2013-10-11 2013-10-11 Other nullFlavo [facility] 16661 f58-5 Memoria 16:08:00 16:08:00 r Primary 085-4a47-9 l Care 63e-e2c5c9 Alessandra nn e6fbe4 2013-10-11 2013-10-11 Other nullFlavo [facility] b5539 4be-f Memoria 16:08:00 16:08:00 r Primary 8a0-783x-0 l Care 9bb-0a9c19 Alessandra nn 2y0574 2013-10-11 2013-10-11 Other nullFlavo [facility] 9098a d0b-8 Memoria 16:08:00 16:08:00 r Primary 335-447a-9 l Care ada-68u193 Alessandra nn 94e08e 2013-10-11 2013-10-11 Other nullFlavo [facility] 5f097 f86-3 Memoria 16:08:00 16:08:00 r Primary b43-454j-3 l Care 1b3-a5x84r Alessandra nn 6d5be2 2013-10-11 2013-10-11 Outpatient [facility] 2453 1 eClinic 11:08:00 11:08:00 [facility]Work [facility] Primary Care Care 2013-10-01 2013-10-01 follow up nullFlavo [facility] 53e y3270-1 Memoria 14:15:00 14:15:00 r Primary 041-49c2-8 l Care k9h-20rq1h Alessandra nn t51190 2013-10-01 2013-10-01 follow up nullFlavo [facility] 800 6g23o-n Memoria 14:15:00 14:15:00 r Primary 971-42d3-a l Care i80-64q6m7 Alessandra nn 3b04cc 2013-10-01 2013-10-01 follow up nullFlavo [facility] 6ef 91i4k-t Memoria 14:15:00 14:15:00 r Primary 348-44ed-a l Care 85c-d22b6f Alsesandra nn e476e4 2013-10-01 2013-10-01 follow up nullFlavo [facility] d9c 94b74-f Memoria 14:15:00 14:15:00 r Primary 66a-45c5-a l Care 185-2h914d Alessandra nn 2aeb2a 2013-10-01 2013-10-01 follow up nullFlavo [facility] 800 7d62u-b Memoria 14:15:00 14:15:00 r Primary 971-42d3-a l Care d76-42m4c5 Alessandra nn 3b04cc 2013-10-01 2013-10-01 follow up nullFlavo [facility] 53e c5911-3 Memoria 14:15:00 14:15:00 r Primary 041-49c2-8 l Care l5i-50ei3k Alessanrda nn p75957 2013-10-01 2013-10-01 follow up nullFlavo [facility] d9c 44y44-f Memoria 14:15:00 14:15:00 r Primary 66a-45c5-a l Care 185-4o930e Alessandra nn 2aeb2a 2013-10-01 2013-10-01 follow up nullFlavo [facility] 6ef 49y8u-s Memoria 14:15:00 14:15:00 r Primary 348-44ed-a l Care 85c-d22b6f Alessandra nn e476e4 2013-10-01 2013-10-01 Outpatient [facility] 2441 1 eClinic 09:15:00 09:15:00 [place] [facility] alWork [facility] Primary Care Care 2013-09-23 2013-09-23 Unknown nullFlavo [facility] 4d170 7b7-0 Memoria 15:01:00 15:01:00 r Primary 539-45f7-b l Care 111-l5993m Alessandra nn i0h358 2013-09-23 2013-09-23 Unknown nullFlavo [facility] e658e 09a-5 Memoria 15:01:00 15:01:00 r Primary 415-447d-8 l Care g2e-0f9d8m Alessandra nn 7c34dc 2013-09-23 2013-09-23 Unknown nullFlavo [facility] f88d6 592-f Memoria 15:01:00 15:01:00 r Primary 9cf-428a-9 l Care 133-f5bd02 Alessandra nn [id number] 0882-05-29 2013-09-23 Unknown nullFlavo [facility] 674b2 80a-3 Memoria 15:01:00 15:01:00 r Primary 0bf-4d5d-a l Care ba7-gi725c Alessandra nn [id number] 2013-09-23 2013-09-23 Unknown nullFlavo [facility] e83f0 c4b-d Memoria 15:01:00 15:01:00 r Primary 863-4dec-a l Care s38-6b18o4 Alessandra nn 07fff1 2013-09-23 2013-09-23 Unknown nullFlavo [facility] 72897 d32-1 Memoria 15:01:00 15:01:00 r Primary 189-44b8-8 l Care abf-q44970 Alessandra nn [id number] 8482-05-29 2013-09-23 Unknown nullFlavo [facility] 29406 d32-1 Memoria 15:01:00 15:01:00 r Primary 189-44b8-8 l Care abf-m70571 Alessandra nn 506252 0201-05-29 2013-09-23 Unknown nullFlavo [facility] f88d6 592-f Memoria 15:01:00 15:01:00 r Primary 9cf-428a-9 l Care 133-f5bd02 Alessandra nn 260683 5290-05-29 2013-09-23 Unknown nullFlavo [facility] e658e 09a-5 Memoria 15:01:00 15:01:00 r Primary 415-447d-8 l Care y4q-0n2k8b Alessandra nn 7c34dc 2013-09-23 2013-09-23 [facility] c4b[facility] 15:01:00 15:01:00 r Primary 863-4dec-a l Care r71-0c51w0 [facility] nn 07fff1 2013-09-23 2013-09-23 Unknown nullFlavo [facility] 674b2 80a-3 Memoria 15:01:00 15:01:00 r Primary 0bf-4d5d-a l Care ba7-zw625v [facility] nn [id number] 2013-09-23 2013-09-23 [facility] 4d170 7b7-0 Memoria 15:01:00 15:01:00 r Primary 539-45f7-b l Care 111-y1793b [facility] nn c8d895 2013-09-23 2013-09-23 Outpatient [facility] 2441 5 eClinic 10:01:00 10:01:00 [place] Primary alWork s Primary Care Care 2013-09-22 2013-09-22 [facility] 8371w4-7 Memoria 18:00:00 18:00:00 cant keep r Primary fd0-469e-8 l food down. Care 631-c1073q [facility] p89824 2013-09-22 2013-09-22 [facility] 28 16pt2n-2 Memoria 18:00:00 18:00:00 cant keep r Primary 7d4-7t5t-d l food down. Care [id number] [facility] 923d14 2013-09-22 2013-09-22 losing wt[facility] a[facility] z9xf55-q Memoria 18:00:00 18:00:00 cant keep r Primary d33-0p72-b l food down. Care 2ee-baecbc [facility] 13da47 2013-09-22 2013-09-22 losing wt[facility] 32 i5h33m-1 Memoria 18:00:00 18:00:00 cant keep r Primary 9cb-41dd-8 l food down. Care 079-4q800w [facility] 86d26e 2013-09-22 2013-09-22 losing wt, [facility] 1d 1a294i-3 Memoria 18:00:00 18:00:00 cant keep r Primary h81-7180-s l food down. Care 2a4-469hfj [facility] 055332 6597-05-28 2013-09-22 losing wt, [facility] 7b 58b21n-3 Memoria 18:00:00 18:00:00 cant keep r Primary x8g-1213-3 l food down. Care 14a-968d08 [facility] 332f83 2013-09-22 2013-09-22 losing wt, [facility] 60 2244z1-8 Memoria 18:00:00 18:00:00 cant keep r Primary fd0-469e-8 l food down. Care 631-g7433n [facility] v57609 2013-09-22 2013-09-22 losing wt, [facility] 32 h5k20g-5 Memoria 18:00:00 18:00:00 cant keep r Primary 9cb-41dd-8 l food down. Care 079-2b866w [facility] 86d26e 2013-09-22 2013-09-22 losing wt, [facility] a9 y9dz96-w Memoria 18:00:00 18:00:00 cant keep r Primary k04-8w02-u l food down. Care 2ee-baecbc [facility] 13da47 2013-09-22 2013-09-22 losing wt, [facility] 7b 01m92w-0 Memoria 18:00:00 18:00:00 cant keep r Primary r5a-6201-4 l food down. Care 14a-968d08 [facility] 332f83 2013-09-22 2013-09-22 losing wt, [facility] 1d 6c685v-6 Memoria 18:00:00 18:00:00 cant keep r Primary e27-5632-u l food down. Care 2b9-514bao [facility] 758924 1411-05-28 2013-09-22 losing wt, [facility] 28 65dc7t-0 Memoria 18:00:00 18:00:00 cant keep r Primary 6g8-4e3h-t l food down. Care [id number] [facility] 923d14 2013-09-22 2013-09-22 Outpatient [facility] 2440 8 eClinic 13:00:00 13:00:00 [facility] Primary alWork s Primary Care Care 2012-01-12 2012-01-12 Emergency nullFlavo 625557 6260 Memoria 11:06:00 13:50:00 [place] 00 l Andrea 2012-01-12 2012-01-12 Emergency nullFlavo [id number] 0189 Memoria 11:06:00 13:50:00 r [place] 00 l Andrea Results Test Description Test Time Test Comments Results Result Comments Source TROPONIN-HS 2021-12-13 11:52:00 Test Item Value Reference Range Interpretation Comme nts TROPONIN-HS (test code = TROPI) 4.520 pg/mL 0-45 N CAUTION: Units of the current test methodology (pg /mL)differ from the prior test meth odology (ng/mL) by a factorof 1000 . BASIC METABOLIC [id number] 07:34:00 Test Item Value Reference Range Interpretation Comments SODIUM (test code = 141 mmol/L 136-145 N NA) POTASSIUM (test code 3.7 mmol/L 3.5-5.1 N = K) CHLORIDE (test code 110.0 mmol/L 98-107 H = CL) CARBON DIOXIDE (test 25.0 mmol/L 21-32 N code = CO2) ANION GAP (test code 9.7 10-20 L = GAP) GLUCOSE (test code = 80 mg/dL 74-106 N GLU) BLOOD UREA NITROGEN 12 mg/dL 7-18 N (test code = BUN) GLOMERULAR > 60 mL/min See_Comment Estimated GFR b y FILTRATION RATE using Modifi ed MDRD (test code = GFR) formula. ronic kidney disease is defined as eith er kidney damageor GFR <60 mL/min/1.73 m2 for >3 months. [Automated mess age] The system [employer] generated this result transmitted ref erence range: >=60. Th e reference range was not used to int erpret this result as normal/abnormal . CREATININE (test 0.50 mg/dL 0.55-1.02 L Note cuellar ge in code = CREAT) reference rang e due to change in reagent. BUN/CREATININE RATIO 24.0 10-20 H (test code = BUN/CREA) CALCIUM (test code = 8.0 mg/dL 8.5-10.1 L CA) [id number] 07:34:00 Test Item Value Reference Range Interpretation Comments PHOSPHORUS (test code = PHOS) 3.0 mg/dL 2.5-4.9 N [id number] 07:34:00 Test Item Value Reference Range Interpretation Comments MAGNESIUM (test code = MAG) 1.8 mg/dL 1.8-2.4 N CBC W/AUTO [id number] 07:19:00 Test Item Value Reference Range Interpretation Comments WHITE BLOOD CELL (test code = 5.3 K/mm3 4.5-12.5 N WBC) RED BLOOD CELL (test code = 3.74 mill/mm3 3.7-5.2 N RBC) HEMOGLOBIN (test code = HGB) 11.3 gram/dL 11.5-15.5 L HEMATOCRIT (test code = HCT) 34.2 % 36.0-46.0 L MEAN CELL VOLUME (test code = 91.4 fL 80-98 N MCV) MEAN CELL HGB (test code = MCH) 30.2 picogram 27.0-33.0 N MEAN CELL HGB CONCETRATION 33.0 gram/dL 33.0-36.0 N (test code = MCHC) RED CELL DISTRIBUTION WIDTH 14.1 % 11.6-16.2 N (test code = RDW) RED CELL DISTRIBUTION WIDTH SD 47.5 fL 37.0-51.0 N (test code = RDW-SD) PLATELET COUNT (test code = 177 K/mm3 150-450 N PLT) MEAN PLATELET VOLUME (test code 10.0 fL 6.7-11.0 N = MPV) NEUTROPHIL % (test code = NT%) 46.5 % 39.0-69.0 N LYMPHOCYTE % (test code = LY%) 41.5 % 25.0-55.0 N MONOCYTE % (test code = MO%) 9.6 % 0.0-10.0 N EOSINOPHIL % (test code = EO%) 1.3 % 0.0-5.0 N BASOPHIL % (test code = BA%) 0.9 % 0.0-1.0 N NEUTROPHIL # (test code = NT#) 2.47 K/mm3 1.8-7.7 N LYMPHOCYTE # (test code = LY#) 2.21 K/mm3 1.0-5.0 N MONOCYTE # (test code = MO#) 0.51 K/mm3 0-0.8 N EOSINOPHIL # (test code = EO#) 0.07 K/mm3 0.0-0.5 N BASOPHIL # (test code = BA#) 0.05 K/mm3 0.0-0.2 N MANUAL DIFF REQUIRED (test code NO = MDIFF) URINALYSIS [id number] 12:08:00 Test Item Value Reference Range Interpretation Comments UA COLOR (test code = YELLOW YELLOW COLU) UA APPEARANCE (test CLEAR CLEAR IS THE S AMPLE code = APPU) FROM ER OR L&D? Y IF THE ANSWER I S NO,PLEASE DOCUMENT TWO RN SIGNATURES HERE - by [id number] 12/12/21 1208 UA GLUCOSE DIPSTICK NEGATIVE mg/dL NEGATIVE (test code = DGLUU) UA BILIRUBIN DIPSTICK NEGATIVE mg/dL NEGATIVE (test code = BILU) UA KETONE DIPSTICK 10 (1+) mg/dL NEGATIVE A (test code = KETU) UA SPECIFIC GRAVITY 1.025 1.001-1.035 (test code = SGU) UA BLOOD DIPSTICK Negative mg/dL NEGATIVE (test code = SAGAR) UA PH DIPSTICK (test 7.0 5.0-8.0 code = FLORA) UA PROTEIN DIPSTICK 20 (Trace) mg/dL NEGATIVE A (test code = PROU) UA UROBILINIOGEN 2.0 (1+) mg/dL NEGATIVE A DIPSTICK (test code = URO) UA NITRITE DIPSTICK NEGATIVE NEGATIVE (test code = MAGGIE) UA LEUKOCYTE ESTERASE NEGATIVE Bobby/uL NEGATIVE W REFLEX (test code = LEUUR) UA WBC (test code = 0-5 per HPF 0-5 WBCU) UA RBC (test code = 0-2 #/HPF 0-5 RBCU) UA EPITHELIAL CELLS MOD per HPF FEW (test code = EPIU) UA BACTERIA (test NONE SEEN #/HPF NONE code = BACU) UA MUCUS (test code = FEW #/LPF FEW MUCU) Urine Source? Clean CatchBASIC METABOLIC [id number] 11:52:00 Test Item Value Reference Range Interpretation Comments SODIUM (test code = 141 mmol/L 136-145 N NA) POTASSIUM (test code 3.7 mmol/L 3.5-5.1 N = K) CHLORIDE (test code 111.0 mmol/L 98-107 H = CL) CARBON DIOXIDE (test 24.0 mmol/L 21-32 N code = CO2) ANION GAP (test code 9.7 10-20 L = GAP) GLUCOSE (test code = 88 mg/dL 74-106 N GLU) BLOOD UREA NITROGEN 20 mg/dL 7-18 H (test code = BUN) GLOMERULAR > 60 mL/min See_Comment Estimated GFR b y FILTRATION RATE using Modifi ed MDRD (test code = GFR) formula. ron kidney disease is defined as eith er kidney damageor GFR <60 mL/min/1.73 m2 for >3 months. [Automated mess age] The system [employer] generated this result transmitted ref erence range: >=60. Th e reference range was not used to int erpret this result as normal/abnormal . CREATININE (test 0.50 mg/dL 0.55-1.02 L Note cuellar ge in code = CREAT) reference rang e due to change in reagent. BUN/CREATININE RATIO 41.7 10-20 H (test code = BUN/CREA) CALCIUM (test code = 8.8 mg/dL 8.5-10.1 N CA) [id number] 11:52:00 Test Item Value Reference Range Interpretation Comments LIPASE (test code = LIP) 44 U/L 12.00-57.00 N [id number] 11:52:00 Test Item Value Reference Range Interpretation Comments TROPONIN-HS (test <4.0 pg/mL 0-45 N CAUTION: U nits of the code = TROPI) current test m ethodology (pg/mL)differ f rom the prior test meth odology (ng/mL) by a fa ctorof 1000. B-TYPE NATRIURETIC [id number] 11:51:00 Test Item Value Reference Range Interpretation Comments B-TYPE NATRIURETIC PEPTIDE 138.5 pgram/mL 0-100 H (test code = BNP) CBC W/O [id number] 11:15:00 Test Item Value Reference Range Interpretation Comments WHITE BLOOD CELL (test code = 6.4 K/mm3 4.5-12.5 N WBC) RED BLOOD CELL (test code = 4.09 mill/mm3 3.7-5.2 N RBC) HEMOGLOBIN (test code = HGB) 12.0 gram/dL 11.5-15.5 N HEMATOCRIT (test code = HCT) 36.6 % 36.0-46.0 N MEAN CELL VOLUME (test code = 89.5 fL 80-98 N MCV) MEAN CELL HGB (test code = MCH) 29.3 picogram 27.0-33.0 N MEAN CELL HGB CONCETRATION 32.8 gram/dL 33.0-36.0 L (test code = MCHC) RED CELL DISTRIBUTION WIDTH 14.1 % 11.6-16.2 N (test code = RDW) PLATELET COUNT (test code = 219 K/mm3 150-450 N PLT) MEAN PLATELET VOLUME (test code 10.0 fL 6.7-11.0 N = MPV) - XR CHEST 1 [id number] 10:15:00 [facility] ([facility])Name: HAYLEY LI : 1955 Sex: F FAX: Pranay Cheung [phone] Ivel: B St: PRE FAX: Alphonse Ramirez MD [phone] Name: HAYLEY LI SOFYA [facility] : 1955 Age/S: 66/F [address] [facility] Unit #: [id number] Loc: FUAD [place] [address] Phys: Pranay Cheung MD Acct: [id number] Dis Date: Status: PRE ER PHONE #: [phone] Exam Date: 12/12/2021 1013 FAX #: [phone] Reason: WEAKNESS EXAMS: CPT CODE: [id number] XR CHEST 1 V [id number] REASON FOR EXAM: WEAKNESS Exam Order Date: 12/12/2021 10:00 AM Ordering M.Paul.: Pranay Cheung MD PROCEDURE: - XR CHEST 1 V COMPARISON: 02/03/2020 FINDINGS: Lines/Tubes: None The lungs are clear. There is no pleural effusion or pneumothorax. Pulmonary vascularity is within normal limits. Cardiomediastinal silhouette and mediastinal contours are unchanged when accounting for differences in technique. Musculoskeletal structures and visualized portions of the upper abdomen are also unchanged. IMPRESSION: No acute cardiopulmonary process. Location: [facility] at 1015 Reported and signed by: Shant England M.D. CC: Pranay Cheung MD; Alphonse Zarate Technologist: RT AMALIA(Raegan) Trnscrd Date/Time/By: 12/12/2021 (1015): By: [email or web address] Orig Print D/T: S: 12/12/2021 (1015) PAGE 1 Signed ReportCT ABDOMEN/PELVIS [id number] 16:59:00[facility] D : 1955 Sex: F [facility] [address] [address] Patient Name: HAYLEY LI MR #: [id number] : 1955 Age/Sex: 66/F Req #: [id number] Adm Physician: Ordered by: JO-ANN SWEENEY Report #: [id number] Location: ER Room/Bed: Procedure: [id number] CT/CT ABDOMEN/PELVIS W Exam Date: 11/19/21 Exam Time: 1602 REPORT STATUS: Signed ABDOMINAL AND PELVIS CT DATED 11/19/2021 CLINICAL INFORMATION: Weight loss TECHNIQUE: Axial images of the abdomen and pelvis were obtained from diaphragm to the pubic symphysis with intravenous contrast. This exam was performed according to our departmental dose-optimization program, which includes automated exposure control, adjustment of the mA and/or kV according to patient size and/or use of interactive reconstruction technique. COMMENT: A 5 mm nodule is seen in the left lower lobe. The nodularis stable in size as compared tothe prior CT of the chest dated August 25, 2019. Liver and spleen arenormal in size without focal abnormality. Gallbladder is surgically absent. No biliary dilatation isnoted. Pancreas and adrenals are unremarkable. Both kidneys are normal in size and functioning. No hydronephrosis, hydroureter, urolithiasis is seen. Diverticular disease is seen in the large bowel without diverticulitis. The small bowel is normal in caliber. Appendix is not visualized. Uterus surgically absent. The urinary bladder is contracted. No mass, adenopathy or ascites is present. IMPRESSION: 1. Stable left lower lobe nodule. No follow-up recommended. 2. No mass or adenopathy in the abdomenpelvis. 3. Diverticular disease in the large bowel without diverticulitis. 4. Status post cholecystectomy and hysterectomy. Signed by: Scarlet Godinez on 11/19/2021 4:59 PM Dictated By: SCARLET GODINEZ MD 00 Transcribed By: NANCY on 11/19/211658 COPY TO: JO-ANN SWEENEY PA-CBlood lymphocytes count (number/volume) 2021-11-19 16:00:00 Test Item Value Reference Range Interpretation Comments Lymphocytes # (Auto) (test code = 1.5 1.0-3.2 36050-4) [facility] National Provider IdentifierBlood monocytes automated count (number/volume) 2021-11-19 16:00:00 Test Item Value Reference Range Interpretation Comments Monocytes # (Auto) (test code = 742-7) 0.5 0.2-0.8 [facility] Provider IdentifierAutomated blood eosinophil [id number] 16:00:00 Test Item Value Reference Range Interpretation Comments Eosinophils # (Auto) (test code = 0.0 0.0-0.4 711-2) [facility] National Provider IdentifierAutomated blood basophil count (count/volume) 2021-11-19 16:00:00 Test Item Value Reference Range Interpretation Comments Basophils # (Auto) (test code = 704-7) 0.0 0.0-0.1 [facility] National Provider IdentifierFluoroscopic procedure less than one hour gjsxsvao5879-05-49 16:00:00 Test Item Value Reference Range Interpretation Comments Absolute Immature Granulocyte (auto 0.01 0-0.1 (test code = Absolute Immature Granulocyte (auto) [facility] Provider IdentifierSerum or plasma sodium measurement (moles/volume)2021-11-19 16:00:00 Test Item Value Reference Range Interpretation Comments Sodium Level (test code = 2951-2) 138 136-145 [facility] National Provider IdentifierSerum or plasma potassium measurement (moles/volume)2021-11-19 16:00:00 Test Item Value Reference Range Interpretation Comments Potassium Level (test code = 2823-3) 3.6 3.5-5.1 [facility] National Provider IdentifierSerum or plasma chloride measurement (moles/volume)2021-11-19 16:00:00 Test Item Value Reference Range Interpretation Comments Chloride Level (test code = 2075-0) 106 98-107 [facility] National Provider IdentifierSerum or plasma carbon dioxide, total measurement (moles/volume)2021-11-19 16:00:00 Test Item Value Reference Range Interpretation Comments Carbon Dioxide Level (test code = 2027-12) [facility] National Provider IdentifierSerum or plasma anion [id number] 16:00:00 Test Item Value Reference Range Interpretation Comments Anion Gap (test code = 38706-6) 14.6 8-16 [facility] Provider IdentifierSerum or plasma urea nitrogen measurement (mass/volume)2021-11-19 16:00:00 Test Item Value Reference Range Interpretation Comments Blood Urea Nitrogen (test code = 11-204-0) [facility] Provider IdentifierSerum or plasma creatinine measurement (mass/volume)2021-11-19 16:00:00 Test Item Value Reference Range Interpretation Comments Creatinine (test code = 2160-0) 0.66 0.57-1.11 [facility] Provider IdentifierSerum or plasma urea nitrogen/creatinine mass azmgt3009-52-20 16:00:00 Test Item Value Reference Range Interpretation Comments BUN/Creatinine Ratio (test code = 10-20 3097-3) [facility] Provider IdentifierGlomerular filtration rate/1.73 sq M.predicted [Volume Rate/Area] in Serum, Plasma or Blood by Creatinine-based formula (CKD- EPI 2020)2021-11-19 16:00:00 Test Item Value Reference Range Interpretation Comments Estimated GFR (CKD-EPI) 95 See_Comment [Au tomated message] The (test code = 45472-8) system which generated this result tra nsmitted reference range : >=60. The reference r lucien was not used to int erpret this result as normal/abnormal . [facility] National Provider IdentifierGlucose dnosmdrewla3423-52-13 16:00:00 Test Item Value Reference Range Interpretation Comments Glucose Level (test code = FMQ6252) 100 74-118 [facility] Provider IdentifierSerum or plasma calcium measurement (mass/volume)2021-11-19 16:00:00 Test Item Value Reference Range Interpretation Comments Calcium Level (test code = 04058-0) 8.6 8.4-10.2 [facility] Provider IdentifierSerum or plasma total bilirubin measurement (mass/volume)2021-11-19 16:00:00 Test Item Value Reference Range Interpretation Comments Total Bilirubin (test code = 1975-2) 0.4 0.2-1.2 [facility] National Provider IdentifierFluoroscopic procedure less than one hour gmsuxoof7569-81-82 16:00:00 Test Item Value Reference Range Interpretation Comments Aspartate Amino Transf (AST/SGOT) (test 24 5-34 code = Aspartate Amino Transf (AST/SGOT)) [facility] Provider IdentifierSerum or plasma alanine aminotransferase measurement (enzymatic activity/volume)2021-11-19 16:00:00 Test Item Value Reference Range Interpretation Comments Alanine Aminotransferase (ALT/SGPT) 15 0-55 (test code = 1742-6) [facility] Provider IdentifierSerum or plasma protein measurement (mass/volume)2021-11-19 16:00:00 Test Item Value Reference Range Interpretation Comments Total Protein (test code = 2885-2) 7.6 6.5-8.1 [facility] Provider IdentifierSerum or plasma albumin measurement (mass/volume)2021-11-19 16:00:00 Test Item Value Reference Range Interpretation Comments Albumin (test code = 1751-7) 3.5 3.5-5.0 [facility] Provider IdentifierPlasma globulin measurement (mass/volume) 2021-11-19 16:00:00 Test Item Value Reference Range Interpretation Comments Globulin (test code = 78661-7) 4.1 2.3-3.5 [facility] Provider IdentifierSerum or plasma albumin/globulin mass ratio 2021-11-19 16:00:00 Test Item Value Reference Range Interpretation Comments Albumin/Globulin Ratio (test code = 0.9 0.8-2.0 1759-0) [facility] Provider IdentifierSerum or plasma alkaline phosphatase measurement (enzymatic activity/volume)2021-11-19 16:00:00 Test Item Value Reference Range Interpretation Comments Alkaline Phosphatase (test code = 119 40-150 6768-6) [facility] Provider IdentifierTroponin I measurement by highly sensitive enzyme pefttxtnekk7238-06-78 16:00:00 Test Item Value Reference Range Interpretation Comments Troponin I (test code = 71224-4) < 0.001 0-0.300 [facility] Provider IdentifierSerum or plasma lipase measurement (enzymatic activity/volume)2021-11-19 16:00:00 Test Item Value Reference Range Interpretation Comments Lipase (test code = 3040-3) 42 8-78 [facility] National Provider IdentifierBlood leukocytes automated count (number/volume)2021-11-19 16:00:00 Test Item Value Reference Range Interpretation Comments White Blood Count (test code = 6690-2) 7.10 4.8-10.8 [facility] Provider IdentifierBlood erythrocytes automated count (number/volume)2021-11-19 16:00:00 Test Item Value Reference Range Interpretation Comments Red Blood Count (test code = 789-8) 4.17 3.6-5.1 [facility] Provider IdentifierBlood hemoglobin measurement (moles/volume) 2021-11-19 16:00:00 Test Item Value Reference Range Interpretation Comments Hemoglobin (test code = 89372-3) 12.3 12.0-16.0 [facility] Provider IdentifierAutomated blood hematocrit (volume fraction) 2021-11-19 16:00:00 Test Item Value Reference Range Interpretation Comments Hematocrit (test code = 4544-3) 37.6 34.2-44.1 [facility] Provider IdentifierAutomated erythrocyte mean corpuscular volume 2021-11-19 16:00:00 Test Item Value Reference Range Interpretation Comments Mean Corpuscular Volume (test code = 90.2 81-99 787-2) [facility] Provider IdentifierAutomated erythrocyte mean corpuscular hemoglobin (mass per erythrocyte)2021-11-19 16:00:00 Test Item Value Reference Range Interpretation Comments Mean Corpuscular Hemoglobin (test code 29.5 28-32 = 785-6) [facility] Provider IdentifierAutomated erythrocyte mean corpuscular hemoglobin concentration measurement (mass/volume)2021-11-19 16:00:00 Test Item Value Reference Range Interpretation Comments Mean Corpuscular Hemoglobin Concent 32.7 31-35 (test code = 786-4) [facility] Provider IdentifierRDW CmuVr-Hbm6510-15-25 16:00:00 Test Item Value Reference Range Interpretation Comments Red Cell Distribution Width (test code 13.4 11.7-14.4 = 23141-6) [facility] Provider IdentifierAutomated blood platelet count (count/volume) 2021-11-19 16:00:00 Test Item Value Reference Range Interpretation Comments Platelet Count (test code = 777-3) 235 140-360 [facility] Provider IdentifierAutomated blood segmented neutrophil count as percentage of total gsacuknhyx8845-63-88 16:00:00 Test Item Value Reference Range Interpretation Comments Neutrophils (%) (Auto) (test code = 70.9 38.7-80.0 22154-7) [facility] Provider IdentifierAutomated blood lymphocyte count as percentage ot total xsjcufotpx5546-73-32 16:00:00 Test Item Value Reference Range Interpretation Comments Lymphocytes (%) (Auto) (test code = 21.1 18.0-39.1 736-9) [facility] Provider IdentifierAutomated blood monocyte count as percentage of total ceylunfhjr2127-71-09 16:00:00 Test Item Value Reference Range Interpretation Comments Monocytes (%) (Auto) (test code = 6.9 4.4-11.3 5905-5) [facility] Provider IdentifierAutomated blood eosinophil count as percentage of total nhgrgirwuf1105-10-90 16:00:00 Test Item Value Reference Range Interpretation Comments Eosinophils (%) (Auto) (test code = 0.4 0.0-6.0 713-8) [facility] Provider IdentifierAutomated blood basophil count as percentage of total tkhbkquumk8107-92-25 16:00:00 Test Item Value Reference Range Interpretation Comments Basophils (%) (Auto) (test code = 0.6 0.0-1.0 706-2) [facility] Provider IdentifierFluoroscopic procedure less than one hour tejodmse1524-72-44 16:00:00 Test Item Value Reference Range Interpretation Comments IM GRANULOCYTES % (test code = IM 0.1 0.0-1.0 GRANULOCYTES %) [facility] Provider IdentifierAutomated blood neutrophil ymcuj1926-87-97 16:00:00 Test Item Value Reference Range Interpretation Comments Neutrophils # (Auto) (test code = 5.0 2.1-6.9 751-8) [facility] Provider IdentifierCHEST SINGLE (PORTABLE)2021-11-19 15:19:00 [facility] 1955 Sex: F [place] [id number] Patient Name: HAYLEY LI MR #: [id number] : 1955 Age/Sex: 66/F Req #: [id number] Adm Physician: Ordered by: JO-ANN SWEENEY PA-C Report #: [id number] Location: ER Room/Bed: Procedure: [id number] DX/CHEST SINGLE (PORTABLE) Exam Date: 11/19/21 Exam Time: 1443 REPORT STATUS: Signed Exam: Chest radiograph Clinical History: Weight loss COMPARISON: May 24, 2021 Findings:The cardiomediastinal silhouette and lungs are normal. The regional skeleton and soft tissue are unre markable. There is no evidence of pleural effusion or pneumothorax. Impression: No radiographic evidence of acute cardiopulmonary disease. Signed by: Gege Anne on 11/19/2021 3:19 PM Dictated By: GEGE ANNE MD 1521 Transcribed By: NANCY on 11/19/21 1519 COPY TO: JO-ANN SWEENEY color tbhfgqfwffldi2616-83-65 14:48:00 Test Item Value Reference Range Interpretation Comments Urine Color (test code = 5778-6) YELLOW YELLOW [facility] National Provider IdentifierUrine vzxlbqk4342-10-87 14:48:00 Test Item Value Reference Range Interpretation Comments Urine Clarity (test code = 52209-1) CLEAR CLEAR [facility] National Provider IdentifierSpecific gravity of Urine by Test strip 2021-11-19 14:48:00 Test Item Value Reference Range Interpretation Comments Urine Specific [place] (test code = 1.020 1.010-1.025 5811-5) [facility] National Provider IdentifierUrine pH measurement by automated test strip 2021-11-19 14:48:00 Test Item Value Reference Range Interpretation Comments Urine pH (test code = 79359-2) 7 5-7 [facility] National Provider IdentifierUrine leukocyte esterase detection by automated test wktsx9726-85-78 14:48:00 Test Item Value Reference Range Interpretation Comments Urine Leukocyte Esterase (test code = SMALL NEGATIVE 30222-7) [facility] Provider IdentifierUrine nitrite detection by automated test strip 2021-11-19 14:48:00 Test Item Value Reference Range Interpretation Comments Urine Nitrite (test code = 35175-7) NEGATIVE NEGATIVE [facility] Provider IdentifierUrine protein detection by automated test strip 2021-11-19 14:48:00 Test Item Value Reference Range Interpretation Comments Urine Protein (test code = 85247-8) NEGATIVE NEGATIVE [facility] National Provider IdentifierUrine glucose detection by automated test strip 2021-11-19 14:48:00 Test Item Value Reference Range Interpretation Comments Urine Glucose (UA) (test code = NEGATIVE NEGATIVE 51456-5) [facility] National Provider IdentifierUrine ketones detection by automated test strip 2021-11-19 14:48:00 Test Item Value Reference Range Interpretation Comments Urine Ketones (test code = 61340-6) NEGATIVE NEGATIVE [facility] National Provider IdentifierUrine urobilinogen measurement by test strip (mass/volume)2021-11-19 14:48:00 Test Item Value Reference Range Interpretation Comments Urine Urobilinogen (test code = 2 0.2-1 61948-9) [facility] National Provider IdentifierUrine total bilirubin xzjmfwkqf7946-44-25 14:48:00 Test Item Value Reference Range Interpretation Comments Urine Bilirubin (test code = 1977-8) NEGATIVE NEGATIVE [facility] Provider IdentifierUrine erythrocytes jkgsqjjma4840-84-13 14:48:00 Test Item Value Reference Range Interpretation Comments Urine Blood (test code = 51215-0) NEGATIVE NEGATIVE [facility] National Provider IdentifierAutomated urine sediment leukocyte count by microscopy (number/high power field)2021-11-19 14:48:00 Test Item Value Reference Range Interpretation Comments Urine WBC (test code = 5821-4) 6-10 0-5 [facility] National Provider IdentifierErythrocytes detection in urine sediment by light pvhhhjijgg7302-23-90 14:48:00 Test Item Value Reference Range Interpretation Comments Urine RBC (test code = 57858-4) NONE 0-5 [facility] National Provider IdentifierBacteria detection in urine sediment by light kkppgvocyc3482-56-01 14:48:00 Test Item Value Reference Range Interpretation Comments Urine Bacteria (test code = 25405-1) MODERATE NONE [facility] National Provider IdentifierEpithelial cells detection in urine sediment by light ifqwbyuphm0112-92-24 14:48:00 Test Item Value Reference Range Interpretation Comments Urine Epithelial Cells (test code = MODERATE NONE 20873-8) [facility] National Provider IdentifierAmorphous sediment detection in urine sediment by light hovsjpxijh1425-29-11 14:48:00 Test Item Value Reference Range Interpretation Comments Urine Amorphous Sediment (test code MODERATE FEW = 8246-1) [facility] National Provider IdentifierSerum or plasma creatine kinase measurement (enzymatic activity/volume)2021-05-25 10:47:00 Test Item Value Reference Range Interpretation Comments Creatine Kinase (test code = 2157-6) 34 29-168 [facility] National Provider IdentifierSerum or plasma creatine kinase MB measurement (mass/volume)2021-05-25 10:47:00 Test Item Value Reference Range Interpretation Comments Creatine Kinase MB (test code = 0.70 0-5.0 59248-1) [facility] National Provider IdentifierTroponin I measurement by highly sensitive enzyme anvonibwhmk8241-48-75 09:47:00 Test Item Value Reference Range Interpretation Comments Troponin I (test code = 58591-8) 0.001 0-0.300 [facility] count (number/volume)2021-05-25 06:05:00 Test Item Value Reference Range Interpretation Comments White Blood Count (test code = 6690-2) 5.71 4.8-10.8 [facility] erythrocytes automated count (number/volume)2021-05-25 06:05:00 Test Item Value Reference Range Interpretation Comments Red Blood Count (test code = 789-8) 4.00 3.6-5.1 [facility]Blood hemoglobin measurement (moles/volume) 2021-05-25 06:05:00 Test Item Value Reference Range Interpretation Comments Hemoglobin (test code = 07323-5) 12.3 12.0-16.0 [facility] CampusAutomated blood hematocrit (volume fraction) 2021-05-25 06:05:00 Test Item Value Reference Range Interpretation Comments Hematocrit (test code = 4544-3) 36.2 34.2-44.1 [facility] CampusAutomated erythrocyte mean corpuscular volume 2021-05-25 06:05:00 Test Item Value Reference Range Interpretation Comments Mean Corpuscular Volume (test code = 90.5 81-99 787-2) [facility] CampusAutomated erythrocyte mean corpuscular hemoglobin (mass per erythrocyte)2021-05-25 06:05:00 Test Item Value Reference Range Interpretation Comments Mean Corpuscular Hemoglobin (test code 30.8 28-32 = 785-6) [facility] CampusAutomated erythrocyte mean corpuscular hemoglobin concentration measurement (mass/volume)2021-05-25 06:05:00 Test Item Value Reference Range Interpretation Comments Mean Corpuscular Hemoglobin Concent 34.0 31-35 (test code = 786-4) [facility] CampusRDW EqdAd-Wgu8092-13-28 06:05:00 Test Item Value Reference Range Interpretation Comments Red Cell Distribution Width (test code 12.4 11.7-14.4 = 45631-0) [facility] CampusAutomated blood platelet count (count/volume) 2021-05-25 06:05:00 Test Item Value Reference Range Interpretation Comments Platelet Count (test code = 777-3) 186 140-360 [facility] CampusAutomated blood segmented neutrophil count as percentage of total mvrasrzjgm5332-44-29 06:05:00 Test Item Value Reference Range Interpretation Comments Neutrophils (%) (Auto) (test code = 47.9 38.7-80.0 84280-4) [facility] CampusAutomated blood lymphocyte count as percentage ot total qiipovnqpk6721-41-59 06:05:00 Test Item Value Reference Range Interpretation Comments Lymphocytes (%) (Auto) (test code = 38.4 18.0-39.1 736-9) [facility] CampusAutomated blood monocyte count as percentage of total dfciksfnjr6101-92-89 06:05:00 Test Item Value Reference Range Interpretation Comments Monocytes (%) (Auto) (test code = 10.3 4.4-11.3 5905-5) [facility] CampusAutomated blood eosinophil count as percentage of total jptayhjfsw8927-36-31 06:05:00 Test Item Value Reference Range Interpretation Comments Eosinophils (%) (Auto) (test code = 1.8 0.0-6.0 713-8) [facility] CampusAutomated blood basophil count as percentage of total xyiyqxtxib2492-23-35 06:05:00 Test Item Value Reference Range Interpretation Comments Basophils (%) (Auto) (test code = 1.2 0.0-1.0 706-2) [facility] CampusFluoroscopic procedure less than one hour ecyongbn2308-90-86 06:05:00 Test Item Value Reference Range Interpretation Comments IM GRANULOCYTES % (test code = IM 0.4 0.0-1.0 GRANULOCYTES %) [facility] CampusAutomated blood neutrophil oqtkp9854-25-99 06:05:00 Test Item Value Reference Range Interpretation Comments Neutrophils # (Auto) (test code = 2.7 2.1-6.9 751-8) [facility] CampusBlood lymphocytes count (number/volume) 2021-05-25 06:05:00 Test Item Value Reference Range Interpretation Comments Lymphocytes # (Auto) (test code = 2.2 1.0-3.2 42544-5) [facility] CampusBlood monocytes automated count (number/volume)2021-05-25 06:05:00 Test Item Value Reference Range Interpretation Comments Monocytes # (Auto) (test code = 742-7) 0.6 0.2-0.8 [facility] CampusAutomated blood eosinophil miebz5298-24-60 06:05:00 Test Item Value Reference Range Interpretation Comments Eosinophils # (Auto) (test code = 0.1 0.0-0.4 711-2) [facility] CampusAutomated blood basophil count (count/volume) 2021-05-25 06:05:00 Test Item Value Reference Range Interpretation Comments Basophils # (Auto) (test code = 704-7) 0.1 0.0-0.1 [facility] CampusFluoroscopic procedure less than one hour vmkitdle4130-84-92 06:05:00 Test Item Value Reference Range Interpretation Comments Absolute Immature Granulocyte (auto 0.02 0-0.1 (test code = Absolute Immature Granulocyte (auto) [facility] sodium measurement (moles/volume)2021-05-25 06:05:00 Test Item Value Reference Range Interpretation Comments Sodium Level (test code = 2951-2) 142 136-145 [facility]westerum or plasma potassium measurement (moles/volume)2021-05-25 06:05:00 Test Item Value Reference Range Interpretation Comments Potassium Level (test code = 2823-3) 3.8 3.5-5.1 [facility]westerum or plasma chloride measurement (moles/volume)2021-05-25 06:05:00 Test Item Value Reference Range Interpretation Comments Chloride Level (test code = 2075-0) 111 98-107 [facility]westerum or plasma carbon dioxide, total measurement (moles/volume)2021-05-25 06:05:00 Test Item Value Reference Range Interpretation Comments Carbon Dioxide Level (test code = -8-9) [facility]westerum or plasma anion nrv1130-82-06 06:05:00 Test Item Value Reference Range Interpretation Comments Anion Gap (test code = 80739-7) 10.8 8-16 [facility]westerum or plasma urea nitrogen measurement (mass/volume)2021-05-25 06:05:00 Test Item Value Reference Range Interpretation Comments Blood Urea Nitrogen (test code = 13 11- 3094-0) [facility]westerum or plasma creatinine measurement (mass/volume)2021-05-25 06:05:00 Test Item Value Reference Range Interpretation Comments Creatinine (test code = 2160-0) 0.73 0.57-1.11 [facility]westerum or plasma urea nitrogen/creatinine mass apwcc3986-67-96 06:05:00 Test Item Value Reference Range Interpretation Comments BUN/Creatinine Ratio (test code = 26 6-25 3097-3) [facility] CampusEstimated glomerular filtration rate (GFR) bhwmcwvtkcudg2816-03-29 06:05:00 Test Item Value Reference Range Interpretation Comments Estimat Glomerular 79 See_Comment [Automat ed message] The Filtration Rate (test system which generated code = [id number]) this resul t transmitted reference range : 60-. The reference r lucien was not used to int erpret this result as normal/abnormal . [facility] CampusGlucose tsxnixwotdw5817-27-60 06:05:00 Test Item Value Reference Range Interpretation Comments Glucose Level (test code = QVY2731) 101 74-118 [facility]westerum or plasma calcium measurement (mass/volume)2021-05-25 06:05:00 Test Item Value Reference Range Interpretation Comments Calcium Level (test code = 30567-9) 8.9 8.4-10.2 [facility] plasma total bilirubin measurement (mass/volume)2021-05-25 06:05:00 Test Item Value Reference Range Interpretation Comments Total Bilirubin (test code = 1975-2) 0.6 0.2-1.2 [facility]or[facility] procedure less than one hour [id number] 06:05:00 Test Item Value Reference Range Interpretation Comments Aspartate Amino Transf (AST/SGOT) (test 21 5-34 code = Aspartate Amino Transf (AST/SGOT)) [facility] or plasma alanine aminotransferase measurement (enzymatic activity/volume)2021-05-25 06:05:00 Test Item Value Reference Range Interpretation Comments Alanine Aminotransferase (ALT/SGPT) 13 0-55 (test code = 1742-6) [facility] plasma protein measurement (mass/volume)2021-05-25 06:05:00 Test Item Value Reference Range Interpretation Comments Total Protein (test code = 2885-2) 6.3 6.5-8.1 [facility] or plasma albumin measurement (mass/volume)2021-05-25 06:05:00 Test Item Value Reference Range Interpretation Comments Albumin (test code = 1751-7) 3.4 3.5-5.0 [facility] Campus[facility]asma globulin measurement (mass/volume) 2021-05-25 06:05:00 Test Item Value Reference Range Interpretation Comments Globulin (test code = 64131-6) 2.9 2.3-3.5 [facility] or plasma albumin/globulin mass ratio 2021-05-25 06:05:00 Test Item Value Reference Range Interpretation Comments Albumin/Globulin Ratio (test code = 1.2 0.8-2.0 1759-0) [facility] or plasma alkaline phosphatase measurement (enzymatic activity/volume)2021-05-25 06:05:00 Test Item Value Reference Range Interpretation Comments Alkaline Phosphatase (test code = 91 40-150 6768-6) [facility] (PORT[facility])2021-05-24 17:26:00 [facility] : 1955 Sex: F [place] [address] Patient Name: HAYLEY LI MR #: [id number] : 1955 Age/Sex: 66/F Req #: [id number] [facility] Physician: Ordered by: Jayce Hurley MD Report #: [id number] Location: Room/Bed: Procedure: [id number] DX/CHEST SINGLE (PORTABLE) Exam Date: 05/24/21 Exam Time: 1656 REPORT STATUS: Signed Exam: CHEST SINGLE (PORTABLE) Date: 05/24/2021 5:25 PM Indication: Chest Pain Comparison: CXR 08/25/2019 FINDINGS: Lines/Tubes:EKG leads overlie the chest. Lungs:The lungs are well inflated. Nofocal consolidation or pulmonary edema. Pleura:No pleural effusion. No pneumothorax. Heart/Mediastinum:The cardiomediastinal silhouette is normal in size and contour. Bones/Soft Tissues: No acute osseous injury. Cervical spine fusion hardware. Abdomen: No free air below the diaphragm. IMPRESSION: No focal pneumonia or pulmonary edema. Signed by: Rosy Mccarthy on 05/24/2021 5:26 PM Dictated By: ROSY GREENE Transcribed By: AqutoRIPaladion on 05/24/21 1726COPY TO: JAYCE HURLEY MD SARS-CoV-2 (COVID-19) RNA [Presence] in Respiratory specimen by JOEY with probe [id number] 17:22:00 Test Item Value Reference Range Interpretation Comments Coronavirus (PCR) (test code = NOT DETECTED NEGATIVE 84378-1) [facility] Provider IdentifierFluoroscopic procedure less than one hour [id number] 17:22:00 Test Item Value Reference Range Interpretation Comments Influenza Virus Type A RNA (test NEGATIVE NEGATIVE code = Influenza Virus Type A RNA) [facility] Provider IdentifierFluoroscopic procedure less than one hour [id number] 17:22:00 Test Item Value Reference Range Interpretation Comments Influenza Virus Type B RNA (test NEGATIVE NEGATIVE code = Influenza Virus Type B RNA) [facility] Provider IdentifierFluoroscopic procedure less than one hour [id number] 17:22:00 Test Item Value Reference Range Interpretation Comments Resp Syncytial Virus RNA (INAAT) NEGATIVE NEGATIVE (test code = Resp Syncytial Virus RNA (INAAT)) [facility] Provider Identifier- XR SHOULDER 2 + V [id number] 08:57:00 [facility] ([facility])Name: HAYLEY LI : 1955 Sex: F FAX: Go Gould MD [phone] Ivel: St: REG FAX: Alphonse Ramirez MD [phone] Name: HAYLEY LI [facility] [place] : 1955 Age/S: 66/F [address] [place] [address] Unit #: [id number] [facility] [place] [address] Phys: Go Snow MD Acct: [id number] Dis Date: Status: REG RCR PHONE #: [phone] Exam Date: 05/01/2021 0838 FAX #: Reason: LEFT SHOULDER PAIN EXAMS: CPT CODE: [id number] XR SHOULDER 2 + V LT [address] HISTORY: Left shoulder pain. COMPARISON: 2020. Location: [facility]. 3 views of the left shoulder: Impacted and comminuted minimally displaced fracture of the greater tuberosity. No significant callus formation. Fracture lines are visible. Narrowed glenohumeral joint. Severely narrowed AC joint. Visualized scapula, glenoid and coracoid are normal. Visualized lungs are clear. Soft tissues are normal. IMPRESSION: Impacted comminuted minimally displaced fracture of the greater tuberosity demonstrating no change and no significant callus formation. at 0857 Reported and signed by: Reilly Khan M.D. CC: Go Snow MD; Alphonse Zarate Technologist: BONG TEE RT(R) Trnscrd Date/Time/By: 05/01/2021 (0857) : By: ThaddeusTH4 Orig Print D/T: S: 05/01/2021 (0900) PAGE 1 Signed Report- XR ELBOW 3 + V [id number] 00:53:00 [facility]Name: HAYLEY LI : 1955 Sex: F Name: HAYLEY LI [facility] : 1955 Age/S:66 /F [address] Unit#:[id number] Loc: [place] [address] Phys: Luis A Mcarthur MD Dis Date: PHONE #: [phone] Status: REG ER FAX #: [phone] Exam Date: 03/29/2021 Reason: Pain s/p fall EXAMS: CPT CODE: [id number] XR ELBOW 3 + V LT [address]35 EXAMINATION: - XR ELBOW 3 + VLT LOCATION: H61 HISTORY/INDICATION: Pain s/p fall COMPARISON: None. FINDINGS: AP, oblique and lateral views of left elbow are submitted. There is no acute fracture or dislocation. There is no fat pad elevation to suggest joint effusion. There is mild soft tissue swelling in the posterior elbow. IMPRESSION: 1. Mild soft tissue swelling in the posterior elbow without acute osseous abnormality. at 0053 Reported and signed by: Katelyn Stinson M.D. CC: Luis A Mcarthur MD; Alphonse Zarate Technologist: Mayda Ramey(R)(CT) Trnscrpt Data: 03/29/2021 (005) t.JOHNR.TH15 Orig Print D/T: S: 03/29/2021 (0056) PAGE 1 Signed Report- XR KNEE 3 V [id number] 00:53:00 [facility] [place]Name: HAYLEY LI : 1955 Sex: F Name: HAYLEY LI [facility] : 1955 Age/S:66 /F [address] Unit#:[id number] Loc: [place] [address] Phys: Luis A Mcarthur MD Dis Date: PHONE #: [phone] Status: REG ER FAX #: [phone] Exam Date: 03/29/2021 Reason: Pain s/p fall EXAMS: CPT CODE: [id number] XR KNEE 3 V LT 65749 EXAMINATION: - XR KNEE 3 V LT LOCATION: H 61 HISTORY/INDICATION: Pain s/p fall COMPARISON: None. TECHNIQUE: Frontal, lateral and oblique views of the left knee. FINDINGS: Joint spaces are preserved. No acute fracture or dislocation.No joint effusion. Unremarkable soft tissues. IMPRESSION: Unremarkable knee radiograph. at 0053 Reported and signed by: Katelyn Stinson M.D. CC: Luis A Mcarthur MD; Alphonse Zarate Technologist: Mayda Ramey(Raegan)(CT) Trnscrpt Data: 03/29/2021 (005) t.SDR.TH15 Orig Print D/T: S: 03/29/2021 (0057) PAGE 1 Signed Report- CT MAXIFAC W/O [id number] 00:52:00 [facility] [place]Name: HAYLEY LI : 1955 Sex: F Name: HAYLEY LI [facility] [place] : 1955 Age/S: 66 / F [address] Unit #: [id number] Loc: [place] [address] Phys: Luis A Mcarthur MD Acct: [id number] Dis Date: Status: REG ER PHONE #: [phone] Exam Date: 03/29/20212 FAX #: [phone] Reason: Pain s/p fall EXAMS: CPT CODE: [id number] CT MAXIFAC W/O CNT 50603 EXAM: - CT MAXIFAC W/O CNT LOCATION: H61 CLINICAL HISTORY/INDICATION: Pain s/p fall COMPARISON: None TECHNIQUE: Axial CT images were obtained through the maxillofacial region without intravenous contrast administration. These were reviewed in both soft tissue and bone algorithms. Coronal and sagittal reformats were obtained from the axial data. This examination was performed according to our departmental dose optimization program, which includes automated exposure control, adjustment of the mA and/or kV according to patientsize, and/or use of iterative reconstruction technique. FINDINGS: PARTIALLY IMAGED INTRACRANIAL STRUCTURES:No acute abnormality demonstrated. MASTOID AIR CELLS: Clear. ORBITS: Globes are intact. No retrobulbar or orbital hematoma. No orbital fractures.. PARANASAL SINUSES: Clear. SOFT TISSUES: No masslesion or significant fat stranding. PAROTID AND SUBMANDIBULAR GLANDS: The parotid and submandibular glands are normal in appearance. ADENOPATHY: No enlarged or pathologic appearing lymph nodes are seen. BONES: Frontal bone, nasal bone, maxilla, pterygoid plates, zygoma, mandible, temporal bones, central skull base and craniocervical junction are intact. There are postsurgical changes of ACDF at C3-C4 and C6-C7 with solid healed interbody fusion. IMPRESSION: No acute maxillofacial abnormalities. PAGE 1 Signed Report (CONTINUED) Name: HAYLEY LI [facility] : 1955 Age/S: 66 / F [address] Unit #: [id number] Loc: [place] [address] Phys: Luis A Mcarthur MD Acct: [id number] Dis Date: Status: REG ER PHONE #: [phone] Exam Date: 03/29/202141 FAX #: [phone] Reason: Pain s/p fall EXAMS: CPT CODE: [id number] CT MAXIFAC W/O CNT 75392 (Continued) at 0052 Reported and signed by: Katelyn Stinson M.D. CC: Luis A Mcarthur MD; Alphonse Zarate Technologist:Mayda Carlson)(CT) CTDI:DLP: Trnscb Date/Time: 03/29/2021 (51) [email or web address] Orig Print D/T: S: 03/29/2021 (54) PAGE 2 Signed Report- CT HEAD/BRAIN W/O [id number] 00:46:00 [facility] ([facility])Name: HAYLEY LI : 1955 Sex: F Name: HAYLEY LI [facility] : 1955 Age/S: 66 / F[address] Unit #: [id number] Loc: [place] [address] Phys: Luis A Mcarthur MD Acct: [id number] Dis Date: Status: REG ER PHONE #: [phone] Exam Date: 03/29/2021 0042 FAX #: [phone]: Pain s/p fall EXAMS: CPT CODE: [id number] CT HEAD/BRAIN W/O CONT 58947 Examination: Noncontras t head CT Indication: Status post fall Comparison: None Location: R16 Technique: Multiple CT imagesof the brain were obtained from the skull base to the vertex. No intravenous contrast was administered. One or more of the following dose reduction techniques were used: Automated exposure control, adju stment of the mA and/or kV according to patient size, and/or utilization of iterative reconstruction technique. Findings: There is prominence of the ventricles and sulci consistent with mild supratentorial cerebral volume loss. Remote Left frontal infarct is noted The basilar cisterns are patent. There is no intracranial hemorrhage or mass effect. No intra-axial or extra-axial fluid collections are seen. There are mild periventricular and subcortical white matter hypodensities which are nonspecific, but likely the sequelae of chronic microvascular ischemia. This appearance makes evaluation for underlying acute infarct difficult The visualized paranasal sinuses and mastoid air cells are clear. Impression: 1. No acute intracranial hemorrhage or significant mass effect 2. Additional findings as above at 0046 Reported and signed by: Inna Leong M.D. PAGE 1 Signed Report (CONTINUED) Name: HAYLEY LI [facility] : 1955 Age/S: 66 / F [address] Unit #: [id number] Loc:[place] [address] Phys: Luis A Mcarthur MD Acct: [id number] Dis Date: Status: REG ER PHONE #: [phone] Exam Date: 03/29/202141 FAX #: [phone] Reason: Pain s/p fall EXAMS: CPT CODE: [id number] CT HEAD/BRAIN W/O CONT 45893 (Continued) CC: Luis A Mcarthur MD; Alphonse Zarate Technologist:Mayda Carlson)(CT) CTDI: DLP: Trnscb Date/Time: 03/29/2021 (45) t.JOHNR.SR31 Orig Print D/T:S: 03/29/2021 (004) PAGE 2 Signed Report- XR SHOULDER 2 + V [id number] 23:52:00 [facility] [place]Name: HAYLEY LI : 1955 Sex: F Name: HAYLEY LI [facility] : 1955 Age/S:66 /F [address] Unit#:[id number] Loc: [place] [address] Phys: Luis A Mcarthur MD Dis Date: PHONE #: [phone] Status: PRE ER FAX #: [phone] Exam Date: 03/28/2021 Reason: pain after fall EXAMS: CPT CODE: [id number] XR SHOULDER 2 + [place] LT [address] EXAMINATION: - XR SHOULDER 2 + V LT LOCATION: H 61 HISTORY/INDICATION: pain after fall COMPARISON: None. TECHNIQUE: 2 frontal views in internal and external rotation and scapular Y view of the left shoulder. FINDINGS: Thereis an acute, nondisplaced, obliquely oriented fracture through the greater tuberosity of the humerus. There is no glenohumeral joint dislocation. The AC joint is normal. Imaged left lung is clear. There are postsurgical changes of ACDF in the lower cervical spine. IMPRESSION: 1. Acute, nondisplaced fracture through the greater tuberosity of the humerus. Electronically Signed by Katelyn Stinson M.D. on03/28/2021 at 2352 Reported and signed by: Katelyn Stinson M.D. CC: Luis A Mcarthur MD; Alphonse Zarate Technologist: Mayda Ramey(Raegan)(CT) Trnscrpt Data: 03/28/2021 (1272) [email or web address] Orig Print D/T: S: 03/28/2021 (0706) PAGE 1 Signed Report STREPTOCOCCUS PCR [id number] 07:55:00 Test Item Value Reference Range Interpretation Comments STREPTOCOCCUS DYSGALACTIAE NEGATIVE FOR G/C NEGATIVE (test code = STREPGC) STREPA MOLECULAR (test NEGATIVE FOR GRP A NEGATIVE code = STREPAMOL) - XR CHEST 1 [id number] 20:50:00 Name: HAYLEY LI [facility] : 1955 Age/S:65 /F [address] [facility] Unit#:[id number] Loc: [place] [address] Phys: Luis A Mcarthur MD Date: PHONE #: [phone] Status: REG ER FAX #: [phone] Exam Date: 02/03/2020 Reason: Cough EXAMS: CPT CODE: [id number] XR CHEST 1 V 11675 EXAM: Chest X-ray, 1 view; CLINICAL HISTORY: Cough and sore throat, shortness of breath; FINDINGS: The lungs are clear, no infiltrates, no edema; no effusions; no pneumothorax; normal cardiomediastinal silhouette. Status post anterior fusion of the lower cervical spine. IMPRESSION: Normal chest x-ray. Location code: at 2049 Reported and signed by: Woody Mccormick M.D. CC: Luis A Mcarthur MD; Morgan Barrios MD Technologist: URVASHI ESPINOSA RT(R),RDMS,CT Trnscrpt Data: 02/03/2020 (2049) ThaddeusGRW Orig Print D/T: S: 02/03/2020 (2052) PAGE 1 Signed ReportURINALYSIS [id number] 20:26:00 Test Item Value Reference Range Interpretation [...] HPF NONE BACU) Urine Source? Clean CatchURINALYSIS [id number] 20:23:00 Test Item Value Reference Range Interpretation [...] BACU) Urine Source? Clean CatchNovel Coronavirus 2019 [id number] 08:01:00 Test Item Value Reference Range Interpretation Comments Novel Coronavirus 2019 nCoV (test NEGATIVE code = COVID19) Does patient have the clinical criteria consistent with COVID-19? YIs the patient going to be discharged home? Y- CT ABD PELVIS [id number] 12:27:00 Name: HAYLEY LI [facility] : 1955 Age/S: 64 / F [address] Unit #: [id number] Loc: [place] [address] Phys: Jayme Kimball MD Acct: [id number] Dis Date: Status: REG ER PHONE #: [phone] Exam Date: 11/23/2019 1205 FAX #: [phone] Reason: upper abdominal discomfort and distension EXAMS: CPT CODE: [id number] CT ABD PELVIS W/CONT 84870 REASON FOR EXAM: upper abdominal discomfort and distension EXAM ORDER DATE: 11/23/2019 11:03 AM Ordering MJamie: Jayme Kimball MD PROCEDURE: Axial CT images were acquired through the abdomen/pelvis at 5 mm intervals. Sagittal and coronal reformatted images were generated. Automated exposure control was utilized for this reduction. Phases of contrast: venous and delayed COMPARISON: CT of [...] bowel are within normal limits Abdominal vascular structures: Normal Peritoneum and retroperitoneum: No free fluid or free air. No omental or mesenteric masses. No abnormal lymph nodes. Musculoskeletal structures and abdominal wall: Disc degeneration and facet degeneration is seen at L5-S1 IMPRESSION: No acute intra-abdominal process PAGE 1 Signed Report (CONTINUED) Name: HAYLEY LI [facility] : 1955 Age/S: 64 / F [address] Unit #: [id number] Loc: [place] [address] Phys: Jayme Kimball MD Acct: [id number] Dis Date: Status: REG ERPHONE #: [phone] Exam Date: 11/23/2019 1205 FAX #: [phone] Reason: upper abdominal discomfort and distension EXAMS: CPT CODE: [id number] CT ABD PELVIS W/CONT 00079 (Continued) Location: [facility] at 1227 Reported and signed by: Fish Abbott MD CC: Morgan Huerta MD; Jayme Kimball MD Technologist:Melinda Fuentes CTDI: DLP: Trnscb Date/Time: 11/23/2019 (1227) t.SDR.RR31 Orig Print D/T: S: 11/23/2019 (1185) PAGE 2 Signed ReportURINALYSIS [id number] 11:41:00 Test Item Value Reference Range Interpretation [...] A BACU) Urine Source? Clean CatchBASIC METABOLIC [id number] 11:31:00 Test Item Value Reference Range Interpretation [...] MDRD formula.Chronic kidney disease is defined as [facility] er kidney damageor GFR <60 mL/min/1.73 m2 for >3 months. CREATININE (test code 0.72 mg/dL 0.55-1.3 N = CREAT) BUN/CREATININE RATIO 30.6 10-20 H (test code = BUN/CREA) CALCIUM (test code = 8.0 mg/dL 8.4-10.2 L CA) HEPATIC FUNCTION [id number] 11:31:00 Test Item Value Reference Range Interpretation [...] 38-126 H TOTAL (test code = ALKP) [id number] 11:31:00 Test Item Value Reference Range Interpretation Comments LIPASE (test code = LIP) 223 U/L 128-270 N [id number] 11:31:00 Test Item Value Reference Range Interpretation Comments TROPONIN-I (test code = TROPI) <0.015 ng/mL 0.00-0.056 N URINALYSIS [id number] 11:26:00 Test Item Value Reference Range Interpretation [...] NONE BACU) Urine Source? Clean CatchCBC W/O [id number] 11:13:00 Test Item Value Reference Range Interpretation [...] code 9.5 fL 6.7-11.0 N = MPV) [id number] 17:51:00 Test Item Value Reference Range Interpretation Comments TROPONIN-I (test code = TROPI) <0.015 ng/mL 0-0.045 N BASIC METABOLIC [id number] 17:50:00 Test Item Value Reference Range Interpretation [...] MDRD formula.Chronic kidney disease is defined as [facility] er kidney damageor GFR <60 mL/min/1.73 m2 for >3 months. CREATININE (test code 0.71 mg/dL 0.55-1.3 N = CREAT) BUN/CREATININE RATIO 36.6 10-20 H (test code = BUN/CREA) CALCIUM (test code = 7.9 mg/dL 8.4-10.2 L CA) HEPATIC FUNCTION [id number] 17:50:00 Test Item Value Reference Range Interpretation [...] 38-126 N TOTAL (test code = ALKP) [id number] 17:50:00 Test Item Value Reference Range Interpretation Comments LIPASE (test code = LIP) 155 U/L 128-270 N URINALYSIS [id number] 17:45:00 Test Item Value Reference Range Interpretation [...] LPF NONE-FEW MUCU) Urine Source? Clean CatchURINALYSIS [id number] 17:39:00 Test Item Value Reference Range Interpretation [...] NONE BACU) Urine Source? Clean CatchB-TYPE NATRIURETIC [id number] 17:39:00 Test Item Value Reference Range Interpretation Comments B-TYPE NATRIURETIC PEPTIDE (test 41.0 pg/mL 0-100 N code = BNP) - XR ABDOMEN [id number] 17:39:00 Name: HAYLEY LI [facility] : 1955 Age/S:64 /F [address] [facility] Unit#:[id number] Loc: [place] [address] Phys: Jayme Kimball MD Dis Date: PHONE #: [phone] Status: REG FAX #: [phone] Exam Date: 11/19/2019 Reason: diarrhea EXAMS: CPT CODE: [id number] XR ABDOMEN 2V 57172 HISTORY: Abdominal pain and diarrhea. COMPARISON: Chest x-ray from April 10, [address] scan from August 22, 2018. Location: . Single view chest: No acute infiltrates, effusion or congestion is noted. Lung scarring. The cardiac and mediastinalsilhouette are within normal limits. IMPRESSION: No acute infiltrates, effusion or congestion. 2 view abdomen: No free air. No bowel obstruction. Patient is post cholecystectomy. Scattered fecal material. No pathologic constipation is. DJD of the lower lumbar spine. IMPRESSION: No free air or obstruction. at 1739 Reported and signed by: Reilly Khan M.D. CC: Jayme Kimball MD; Alphonse Zarate Technologist: RAYO REDDING, RT(R),CT Trnscrpt Data: 11/19/2019 (1739) Han.TH4 Orig Print D/T: S: 11/19/2019 (4471) PAGE 1 Signed Report- XR CHEST 1 [id number] 17:39:00 Name: HAYLEY LI [facility] : 1955 Age/S:64 /F [address] [facility] Unit#:[id number] Loc: [place] [address] Phys: Jayme Kimball MD Dis Date: PHONE #: [phone] Status: REG ER FAX #: [phone] Exam Date: 11/19/2019 Reason: sob EXAMS: CPT CODE: [id number] XR CHEST 1 V 14775 HISTORY: Abdominal pain and diarrhea. COMPARISON: Chest [...] Khan M.D. CC: Jayme Kimball MD; Alphonse Zarate Technologist: RAYO REDDING, RT(R),CT Trnscrpt Data: 11/19/2019 (1739) Han.TH4 Orig Print D/T: S: 11/19/2019 (0410) PAGE 1 Signed ReportBASIC METABOLIC [id number] 17:36:00 Test Item Value Reference Range Interpretation [...] MDRD formula.Chronic kidney disease is defined as eith er kidney damageor GFR <60 mL/min/1.73 m2 for >3 months. CREATININE (test code 0.71 mg/dL 0.55-1.3 N = CREAT) BUN/CREATININE RATIO 36.6 10-20 H (test code = BUN/CREA) CALCIUM (test code = 7.9 mg/dL 8.4-10.2 L CA) HEPATIC FUNCTION [id number] 17:36:00 Test Item Value Reference Range Interpretation [...] TOTAL (test IUnit/L 45-117 code = ALKP) [id number] 17:36:00 Test Item Value Reference Range Interpretation Comments LIPASE (test code = LIP) Unit/L 144-286 CBC W/O [id number] 17:23:00 Test Item Value Reference Range Interpretation [...] 6.7-11.0 N = MPV) FOOT LEFT AP [id number] 10:54:00 [place] [address] Patient Name: HAYLEY LI MR #: [id number] : 1955 Age/Sex: 64/F Req #: [id number] Adm Physician: Ordered by: LITO AMBROCIO M.D. Report #: [id number] Location: [facility] Room/Bed: Procedure: [id number] DX/FOOT LEFT AP LAT Exam Date: 09/24/19 Exam Time: 1030 REPORT STATUS: Signed EXAMINATION: FOOT LEFT AP LAT INDICATION: Toe injury COMPARISON: None FINDINGS: No acute fracture or dislocation. Alignment is anatomic. No substantial degenerative change. Soft tissues appear u nremarkable. IMPRESSION: No acute osseous injury. Signed by: Rosy Mccarthy MD on 09/24/2019 10:54 AM Dictated By: ROSY MCCARTHY MD 1054 Transcribed By: KEY on 09/24/191053 COPY TO: LITO AMBROCIO M.D.Serum or plasma sodium measurement (moles/volume) 2019-08-27 05:23:00 Test Item Value Reference Range Interpretation Comments Sodium Level (test code = 2951-2) 140 136-145 [facility] potassium [facility] (moles/volume)2019-08-27 05:23:00 Test Item Value Reference Range Interpretation Comments Potassium Level (test code = 2823-3) 4.2 3.5-5.1 [facility] plasma chloride measurement (moles/volume)2019-08-27 05:23:00 Test Item Value Reference Range Interpretation Comments Chloride Level (test code = 2075-0) 110 98-107 [facility] or plasma carbon dioxide, total measurement (moles/volume)2019-08-27 05:23:00 Test Item Value Reference Range Interpretation Comments Carbon Dioxide Level (test code = 2027-9) [facility] or plasma anion [id number] 05:23:00 Test Item Value Reference Range Interpretation Comments Anion Gap (test code = 90101-9) 10.2 8-16 [facility] or plasma urea nitrogen measurement (mass/volume)2019-08-27 05:23:00 Test Item Value Reference Range Interpretation Comments Blood Urea Nitrogen (test code = 23 - 3094-0) [facility] [place] or plasma creatinine measurement (mass/volume)2019-08-27 05:23:00 Test Item Value Reference Range Interpretation Comments Creatinine (test code = 2160-0) 0.69 0.57-1.11 [facility] or plasma urea nitrogen/creatinine mass xstfw3783-22-39 05:23:00 Test Item Value Reference Range Interpretation Comments BUN/Creatinine Ratio (test code = 33 6-25 3097-3) [facility] CampusEstimated glomerular filtration rate (GFR) uaiurcoivuidb0062-07-88 05:23:00 Test Item Value Reference Range Interpretation Comments Estimat Glomerular Filtration Rate > 60 >60 (test code = 065279526) Ranges were taken from the National Kidney Disease Education Program and the National Kidney Foundation literature.Reference ranges:60 or greater: Zvkcho57- 59 (for 3 consecutive months): Chronic kidneydisease 15 or less: Kidney failure [facility] CampusGlucose wmzotbpnaaf6092-33-04 05:23:00 Test Item Value Reference Range Interpretation Comments Glucose Level (test code = EXQ2888) 97 74-118 [facility] or plasma calcium measurement (mass/volume)2019-08-27 05:23:00 Test Item Value Reference Range Interpretation Comments Calcium Level (test code = 51956-9) 8.8 8.4-10.2 [facility] or plasma creatine kinase measurement (enzymatic activity/volume)2019-08-26 13:50:00 Test Item Value Reference Range Interpretation Comments Creatine Kinase (test code = 2157-6) 55 29-168 [facility] or plasma creatine kinase MB measurement (mass/volume)2019-08-26 13:50:00 Test Item Value Reference Range Interpretation Comments Creatine Kinase MB (test code = 0.80 0-5.0 85563-2) [facility] CampusTroponin I measurement by highly sensitive enzyme zlmcdwjlxzn7596-23-84 13:50:00 Test Item Value Reference Range Interpretation Comments Troponin I (test code = 26052-4) < 0.001 0-0.300 [facility] CampusBlood leukocytes automated count (number/volume)2019-08-26 05:50:00 Test Item Value Reference Range Interpretation Comments White Blood Count (test code = 6690-2) 5.74 4.8-10.8 [facility] CampusBlood erythrocytes automated count (number/volume)2019-08-26 05:50:00 Test Item Value Reference Range Interpretation Comments Red Blood Count (test code = 789-8) 4.09 3.6-5.1 [facility] CampusBlood hemoglobin measurement (moles/volume) 2019-08-26 05:50:00 Test Item Value Reference Range Interpretation Comments Hemoglobin (test code = 40782-6) 12.8 12.0-16.0 [facility] CampusAutomated blood hematocrit (volume fraction) 2019-08-26 05:50:00 Test Item Value Reference Range Interpretation Comments Hematocrit (test code = 4544-3) 37.2 34.2-44.1 [facility] CampusAutomated erythrocyte mean corpuscular volume 2019-08-26 05:50:00 Test Item Value Reference Range Interpretation Comments Mean Corpuscular Volume (test code = 91.0 81-99 787-2) [facility] CampusAutomated erythrocyte mean corpuscular hemoglobin (mass per erythrocyte)2019-08-26 05:50:00 Test Item Value Reference Range Interpretation Comments Mean Corpuscular Hemoglobin (test code 31.3 28-32 = 785-6) [facility] CampusAutomated erythrocyte mean corpuscular hemoglobin concentration measurement (mass/volume)2019-08-26 05:50:00 Test Item Value Reference Range Interpretation Comments Mean Corpuscular Hemoglobin Concent 34.4 31-35 (test code = 786-4) [facility] CampusRDW VeqKu-Sqh1769-86-30 05:50:00 Test Item Value Reference Range Interpretation Comments Red Cell Distribution Width (test code 13.0 11.7-14.4 = 57255-5) [facility] CampusAutomated blood platelet count (count/volume) 2019-08-26 05:50:00 Test Item Value Reference Range Interpretation Comments Platelet Count (test code = 777-3) 214 140-360 [facility] CampusAutomated blood segmented neutrophil count as percentage of total scmhkfqnsw1674-88-08 05:50:00 Test Item Value Reference Range Interpretation Comments Neutrophils (%) (Auto) (test code = 45.9 38.7-80.0 15310-6) [facility] CampusAutomated blood lymphocyte count as percentage ot total nivufsvzuc6080-70-81 05:50:00 Test Item Value Reference Range Interpretation Comments Lymphocytes (%) (Auto) (test code = 38.9 18.0-39.1 736-9) [facility] CampusAutomated blood monocyte count as percentage of total cedodsnply3789-10-17 05:50:00 Test Item Value Reference Range Interpretation Comments Monocytes (%) (Auto) (test code = 10.6 4.4-11.3 5905-5) [facility] CampusAutomated blood eosinophil count as percentage of total iygkrpujwl4950-02-47 05:50:00 Test Item Value Reference Range Interpretation Comments Eosinophils (%) (Auto) (test code = 3.1 0.0-6.0 713-8) [facility] CampusAutomated blood basophil count as percentage of total fljelexdhq5120-93-48 05:50:00 Test Item Value Reference Range Interpretation Comments Basophils (%) (Auto) (test code = 1.2 0.0-1.0 706-2) [facility] CampusFluoroscopic procedure less than one hour urjuousz6013-71-63 05:50:00 Test Item Value Reference Range Interpretation Comments IM GRANULOCYTES % (test code = IM 0.3 0.0-1.0 GRANULOCYTES %) [facility] CampusAutomated blood neutrophil nynya8721-61-04 05:50:00 Test Item Value Reference Range Interpretation Comments Neutrophils # (Auto) (test code = 2.6 2.1-6.9 751-8) [facility] CampusBlood lymphocytes count (number/volume) 2019-08-26 05:50:00 Test Item Value Reference Range Interpretation Comments Lymphocytes # (Auto) (test code = 2.2 1.0-3.2 12938-5) [facility] CampusBlst. [facility] hospital monocytes automated count (number/volume)2019-08-26 05:50:00 Test Item Value Reference Range Interpretation Comments Monocytes # (Auto) (test code = 742-7) 0.6 0.2-0.8 [facility] CampusAutomated blood eosinophil dqubx5983-85-53 05:50:00 Test Item Value Reference Range Interpretation Comments Eosinophils # (Auto) (test code = 0.2 0.0-0.4 711-2) [facility] CampusAutomated blood basophil count (count/volume) 2019-08-26 05:50:00 Test Item Value Reference Range Interpretation Comments Basophils # (Auto) (test code = 704-7) 0.1 0.0-0.1 [facility] CampusFluoroscopic procedure less than one hour xqjkxtyy8009-05-24 05:50:00 Test Item Value Reference Range Interpretation Comments Absolute Immature Granulocyte (auto 0.02 0-0.1 (test code = Absolute Immature Granulocyte (auto) [facility] or plasma total bilirubin measurement (mass/volume)2019-08-26 05:50:00 Test Item Value Reference Range Interpretation Comments Total Bilirubin (test code = 1975-2) 0.5 0.2-1.2 [facility] CampusFluoroscopic procedure less than one hour qifckumq3009-32-16 05:50:00 Test Item Value Reference Range Interpretation Comments Aspartate Amino Transf (AST/SGOT) (test 23 5-34 code = Aspartate Amino Transf (AST/SGOT)) [facility] or plasma alanine aminotransferase measurement (enzymatic activity/volume)2019-08-26 05:50:00 Test Item Value Reference Range Interpretation Comments Alanine Aminotransferase (ALT/SGPT) 14 0-55 (test code = 1742-6) [facility] or plasma protein measurement (mass/volume)2019-08-26 05:50:00 Test Item Value Reference Range Interpretation Comments Total Protein (test code = 2885-2) 6.4 6.5-8.1 [facility] or plasma albumin measurement (mass/volume)2019-08-26 05:50:00 Test Item Value Reference Range Interpretation Comments Albumin (test code = 1751-7) 3.3 3.5-5.0 [facility] CampusPlasma globulin measurement (mass/volume) 2019-08-26 05:50:00 Test Item Value Reference Range Interpretation Comments Globulin (test code = 12223-9) 3.1 2.3-3.5 [facility] or plasma albumin/globulin mass ratio 2019-08-26 05:50:00 Test Item Value Reference Range Interpretation Comments Albumin/Globulin Ratio (test code = 1.1 0.8-2.0 1759-0) [facility] or plasma alkaline phosphatase measurement (enzymatic activity/volume)2019-08-26 05:50:00 Test Item Value Reference Range Interpretation Comments Alkaline Phosphatase (test code = 117 40-150 6768-6) [facility] or plasma triglyceride measurement (mass/volume)2019-08-26 05:50:00 Test Item Value Reference Range Interpretation Comments Triglycerides Level (test code = 69 0-149 8931-8) [facility] or plasma cholesterol measurement (mass/volume)2019-08-26 05:50:00 Test Item Value Reference Range Interpretation Comments Cholesterol Level (test code = 2093-3) 151 0-199 Less than 200 mg/dL Low Eonn498 - 239 mg/dL Borderline Osym612 mg/dl and greater High RiskH[facility] Northwesterum or plasma cholesterol in LDL measurement (mass/volume)2019-08-26 05:50:00 Test Item Value Reference Range Interpretation Comments LDL Cholesterol (test code = 2089-1) 80 60-130 [facility] or plasma cholesterol in HDL measurement (mass/volume)2019-08-26 05:50:00 Test Item Value Reference Range Interpretation Comments HDL Cholesterol (test code = 2085-9) 57 40-60 [facility] or plasma total cholesterol/cholesterol in HDL mass iedjb0881-36-62 05:50:00 Test Item Value Reference Range Interpretation Comments Cholesterol/HDL Ratio (test code = 2.6 3.0-3.6 9830-1) [facility] CampusCT CHEST Y4448-88-29 16:18:00 [facility] [address] [place] [address] Patient Name: HAYLEY LI MR #: [id number] : 1955 Age/Sex: 64/F Req #: [id number] Adm Physician: KUN NOVAK MD Ordered by: ALEJANDRO SPENCE MD Report #: [id number] Location: [facility] Room/Bed: [place] [address] Procedure: [id number] CT/CT CHEST W Exam Date: 08/25/19 Exam [...] the limits set by the Radiation Protocol Committee(RPC). FINDINGS: LINES/ TUBES: None. LUNGS AND AIRWAYS: 0.6 cm pulmonary nodule is seen in the leftlower lobe (series 3, image 86). Subsegmental atelectasis are seen in lung bases. Airways are normal. PLEURA: The pleural spaces are clear. HEART AND MEDIASTINUM: The thyroid gland is normal. No mediastinal, hilar or axillary lymphadenopathy. The heart is normal in size.. There is no pericardial effusion. UPPER ABDOMEN: Unremarkable. BONES: There are degenerative changes in the thoracic spine. SOFT TISSUES: Unremarkable. IMPRESSION: 1. No evidence of pulmonary embolus. 2. A 0.6 cm pulmonary nodule is seen in the left lower lobe. Recommend follow-up chest CT based on Fleischner criteria. Signed by: Bjorn Merrill MD on 08/25/2019 4:41 PM Dictated By: BJORN MERRILL MD 40 Transcribed By: KEY on 08/25/19 164 COPY TO: ALEJANDRO SPENCE [facility] SINGLE (PORTABLE)2019-08-25 14:27:00 [place] [address] PatientName: HAYLEY LI MR #: [id number] : 1955 Age/Sex: 64/F Req #: [id number] Adm Physician: Ordered by: AISHA VIERA DATA COORDINATOR Report #: [id number] Location: ER Room/Bed: ___ Procedure: [id number] DX/CHEST SINGLE (PORTABLE) Exam Date: 08/25/19 Exam Time: 1345 REPORT STATUS: Signed EXAMINATION: CHEST SINGLE (PORTABLE) INDICATION: Chest pain COMPARISON: Chest are graft 07/15/2019 FI NDINGS: LINES/TUBES:EKG leads overlie the chest. LUNGS:The lungs are well- inflated. No focal consolidation or pulmonary edema. PLEURA:No pleural effusion or pneumothorax. MEDIASTINUM:The cardiomediastinal silhouette appears normal in size and shape. BONES/SOFT TISSUES:No acute osseous injury. Cervicalspine fusion hardware. ABDOMEN:No free air under the diaphragm. IMPRESSION: No focal pneumonia or pulmonary edema. Signed by: Rosy Mccarthy MD on 08/25/2019 2:27 PM Dictated By: ROSY MCCARTHY MD 26 Transcribed By: KEY on 08/25/191426 COPY TO: AISHA VIERA NP Prothrombin time (PT) in platelet poor plasma by coagulation oaape8875-97-27 13:15:00 Test Item Value Reference Range Interpretation Comments Prothrombin Time (test code = 5902-2) 12.1 11.9-14.5 [facility] CampusINR in Platelet poor plasma by Coagulation tthon7619-49-98 13:15:00 Test Item Value Reference Range Interpretation Comments Prothromb Time International Ratio 0.85 (test code = 6301-6) Oral Anticoagulant Therapy INR Values:1. Low Intensity Therapy 1.5 - 2.02. Moderate Intensity Therapy 2.0 - 3.03. High Intensity Therapy(1) 2.5 - 3.54. High Intensity Therapy(2) 3.0 - 4.05. Panic ValueINR > 5.0[facility] CampusActivated partial thromboplastin time (aPTT) in platelet poor plasma by coagulation guhtc3054-17-14 13:15:00 Test Item Value Reference Range Interpretation Comments Activated Partial Thromboplast Time 30.1 23.8-35.5 (test code = 34654-3) [facility] CampusBNP Uzq-rMek4199-92-29 13:15:00 Test Item Value Reference Range Interpretation Comments B-Type Natriuretic Peptide (test code = 56.3 0-100 09506-3) [facility] CampusUrine color dffzpcvxdidlo0319-45-07 12:56:00 Test Item Value Reference Range Interpretation Comments Urine Color (test code = 5778-6) YELLOW YELLOW [facility] CampusUrine epogqqd0808-54-05 12:56:00 Test Item Value Reference Range Interpretation Comments Urine Clarity (test code = 12096-7) CLEAR CLEAR [facility] Northwestpecific gravity of Urine by Test strip 2019-08-25 12:56:00 Test Item Value Reference Range Interpretation Comments Urine Specific [place] (test code = 1.025 1.010-1.025 5811-5) [facility] CampusUrine pH measurement by automated test strip 2019-08-25 12:56:00 Test Item Value Reference Range Interpretation Comments Urine pH (test code = 19684-7) 7 5-7 [facility] CampusUrine leukocyte esterase detection by biaudhvy7039-69-96 12:56:00 Test Item Value Reference Range Interpretation Comments Urine Leukocyte Esterase (test code NEGATIVE NEGATIVE = 5799-2) [facility] CampusUrine nitrite mckrgzeoi3369-53-96 12:56:00 Test Item Value Reference Range Interpretation Comments Urine Nitrite (test code = 47448-3) NEGATIVE NEGATIVE [facility] CampusUrine protein measurement by test strip (mass/volume)2019-08-25 12:56:00 Test Item Value Reference Range Interpretation Comments Urine Protein (test code = 5804-0) NEGATIVE NEGATIVE [facility] CampusUrine glucose hscxylpil9979-34-46 12:56:00 Test Item Value Reference Range Interpretation Comments Urine Glucose (UA) (test code = NEGATIVE NEGATIVE 2349-9) [facility] CampusUrine ketones detection by automated test xleoh8500-92-31 12:56:00 Test Item Value Reference Range Interpretation Comments Urine Ketones (test code = 59313-5) NEGATIVE NEGATIVE [facility] CampusUrine urobilinogen measurement by test strip (mass/volume)2019-08-25 12:56:00 Test Item Value Reference Range Interpretation Comments Urine Urobilinogen (test code = 0.2 0.2-1 22215-9) [facility] CampusUrine total bilirubin measurement (mass/volume)2019-08-25 12:56:00 Test Item Value Reference Range Interpretation Comments Urine Bilirubin (test code = 1978-6) NEGATIVE NEGATIVE [facility] CampusUrine erythrocytes emzjbqdsz1751-91-53 12:56:00 Test Item Value Reference Range Interpretation Comments Urine Blood (test code = 48026-2) NEGATIVE NEGATIVE [facility] CampusAutomated urine sediment leukocyte count by microscopy (number/high power field)2019-08-25 12:56:00 Test Item Value Reference Range Interpretation Comments Urine WBC (test code = 5821-4) NONE 0-5 [facility] CampusErythrocytes detection in urine sediment by light dfgojnzhup6890-52-91 12:56:00 Test Item Value Reference Range Interpretation Comments Urine RBC (test code = 91603-8) NONE 0-5 [facility] CampusBacteria detection in urine sediment by light mvyofyzqme2936-27-37 12:56:00 Test Item Value Reference Range Interpretation Comments Urine Bacteria (test code = 41892-4) NONE NONE [facility] CampusEpithelial cells detection in urine sediment by light udyvgjgobe0882-10-38 12:56:00 Test Item Value Reference Range Interpretation Comments Urine Epithelial Cells (test code = RARE NONE 06173-3) [facility] CampusPhosphorus Rcnnp9787-34-47 06:36:00 Test Item Value Reference Range Interpretation Comments Phosphorus Level (test code = UAO0219) 4.3 2.3-4.7 [facility] CampusMagnesium Zunvw4964-72-24 06:36:00 Test Item Value Reference Range Interpretation Comments Magnesium Level (test code = 14208-2) 2.0 1.3-2.1 [facility] CampusPhosphorus jshalfefnaw1100-08-94 05:40:00 Test Item Value Reference Range Interpretation Comments Phosphorus Level (test code = YVU0114) 4.3 2.3-4.7 [facility] or plasma magnesium measurement (mass/volume)2019-07-16 05:40:00 Test Item Value Reference Range Interpretation Comments Magnesium Level (test code = 78828-3) 2.0 1.3-2.1 [facility] CampusInfluenza Virus Types A,B Jjmmvjw4190-02-12 11:58:00 Test Item Value Reference Range Interpretation Comments Influenza Virus Types A,B Antigen NEGATIVE NEGATIVE (test code = 64446-2) [facility] CampusInfluenza virus A and B antigen identification by trmkothnudskvhbtcq1282-70-35 10:50:00 Test Item Value Reference Range Interpretation Comments Influenza Virus Types A,B Antigen NEGATIVE NEGATIVE (test code = 68257-0) [facility] CampusCHEST SINGLE (PORTABLE)2019-07-15 06:57:00 [place] [address] Patient Name: HAYLEY LI MR #: [id number] : 1955 Age/Sex: 64/F Req #: [id number] Adm Physician: KUN NOVAK MD Ordered by: AISHA VIERA DATA COORDINATOR Report #: [id number] Location: MED/SURG3 Room/Bed: [facility] Procedure: [id number] DX/CHEST SINGLE (PORTABLE) Exam Date: 07/15/19 Exam Time: 0605 REPORT STATUS: Signed EXAMINATION: CHEST SINGLE (PORTABLE) INDICATION: Shortness of breath. Chest pain. COMPARISON: 07/14/2019. FINDINGS: LINES/TUBES:None. LUNGS:Mild right basilar subsegmental atelectasis.. No focal consolidation or pulmonary edema. PLEURA:No pleural effusion or pneumothorax. MEDIASTINUM:The cardiomediastinal silhouette appears normal in size and shape. BONES/SOFT TISSUES:No acute osseous injury. Cervical spine fusion hardware. ABDOMEN:No free air under the diaphragm. IMPRESSION: Right basilar subsegmental atelectasis. Signed by: Dr. Anabel Ambrose M.D. on 07/15/2019 6:59 AM Dictated By: DINORAH AMBROSE MD, MD 8 Transcribed By: KEY on 07/15/19658 COPY TO: AISHA VIERA NPCreatine Rrtayr1026-38-67 06:44:00 Test Item Value Reference Range Interpretation Comments Creatine Kinase (test code = 2157-6) 48 29-168 [facility] Northwestodium Rpjpi0095-97-59 06:32:00 Test Item Value Reference Range Interpretation Comments Sodium Level (test code = 2951-2) 142 136-145 [facility] CampusPotassium Bhruq7403-04-44 06:32:00 Test Item Value Reference Range Interpretation Comments Potassium Level (test code = 2823-3) 3.8 3.5-5.1 [facility] CampusChloride Mwimz4003-18-18 06:32:00 Test Item Value Reference Range Interpretation Comments Chloride Level (test code = 2075-0) 111 98-107 H [facility] CampusCarbon Dioxide Klnec4341-84-27 06:32:00 Test Item Value Reference Range Interpretation Comments Carbon Dioxide Level (test code = 23 22-29 8-9) [facility] CampusAnion Uoh4078-69-83 06:32:00 Test Item Value Reference Range Interpretation Comments Anion Gap (test code = 24164-0) 11.8 8-16 [facility] CampusBlood Urea Iarjljfv9517-42-09 06:32:00 Test Item Value Reference Range Interpretation Comments Blood Urea Nitrogen (test code = 9 7- 3094-0) [facility] CampusCreatinine2020-03-19 06:32:00 Test Item Value Reference Range Interpretation Comments Creatinine (test code = 2160-0) 0.71 0.57-1.11 [facility] CampusBUN/Creatinine Rwwyo5853-06-42 06:32:00 Test Item Value Reference Range Interpretation Comments BUN/Creatinine Ratio (test code = 13 6-25 3097-3) [facility] CampusEstimat Glomerular Filtration Apjc0505-78-43 06:32:00 Test Item Value Reference Range Interpretation Comments Estimat Glomerular Filtration Rate > 60 >60 (test code = 118596976) Ranges were taken from the National Kidney Disease Education Program and the National Kidney Foundation literature.Reference ranges:60 or greater: Busgkp44- 59 (for 3 consecutive months): Chronic kidneydisease 15 or less: Kidney failure [facility] CampusGlucose Rzmqd1311-15-75 06:32:00 Test Item Value Reference Range Interpretation Comments Glucose Level (test code = OEN0582) 95 74-118 [facility] CampusCalcium Kjlzu2935-39-90 06:32:00 Test Item Value Reference Range Interpretation Comments Calcium Level (test code = 04372-3) 9.3 8.4-10.2 [facility] CampusCreatine Kinase KD5724-63-38 06:21:00 Test Item Value Reference Range Interpretation Comments Creatine Kinase MB (test code = 0.40 0-5.0 83382-9) [facility] CampusTroponin R2523-33-41 06:21:00 Test Item Value Reference Range Interpretation Comments Troponin I (test code = TEJ2289) < 0.001 0-0.300 [facility] CampusWhite Blood Rzgqd0613-10-06 06:02:00 Test Item Value Reference Range Interpretation Comments White Blood Count (test code = 6690-2) 7.26 4.8-10.8 [facility] CampusRed Blood Kmonb3654-66-29 06:02:00 Test Item Value Reference Range Interpretation Comments Red Blood Count (test code = 789-8) 4.41 3.6-5.1 [facility] CampusHemoglobin2020-03-19 06:02:00 Test Item Value Reference Range Interpretation Comments Hemoglobin (test code = 72951-8) 13.5 12.0-16.0 [facility] CampusHematocrit2020-03-19 06:02:00 Test Item Value Reference Range Interpretation Comments Hematocrit (test code = 4544-3) 40.1 34.2-44.1 [facility] CampusMean Corpuscular Iuousc5041-93-04 06:02:00 Test Item Value Reference Range Interpretation Comments Mean Corpuscular Volume (test code = 90.9 81-99 787-2) [facility] CampusMean Corpuscular Oontttualq9483-27-12 06:02:00 Test Item Value Reference Range Interpretation Comments Mean Corpuscular Hemoglobin (test code 30.6 28-32 = 785-6) [facility] CampusMean Corpuscular Hemoglobin Biqjway4527-08-32 06:02:00 Test Item Value Reference Range Interpretation Comments Mean Corpuscular Hemoglobin Concent 33.7 31-35 (test code = 786-4) [facility] CampusRed Cell Distribution Fxzci5633-32-18 06:02:00 Test Item Value Reference Range Interpretation Comments Red Cell Distribution Width (test code 12.8 11.7-14.4 = 74192-5) [facility] CampusPlatelet Oajie1632-29-20 06:02:00 Test Item Value Reference Range Interpretation Comments Platelet Count (test code = 777-3) 211 140-360 [facility] CampusNeutrophils (%) (Auto)2019-07-15 06:02:00 Test Item Value Reference Range Interpretation Comments Neutrophils (%) (Auto) (test code = 43.5 38.7-80.0 25427-9) [facility] CampusLymphocytes (%) (Auto)2019-07-15 06:02:00 Test Item Value Reference Range Interpretation Comments Lymphocytes (%) (Auto) (test code = 42.4 18.0-39.1 H 736-9) [facility] CampusMonocytes (%) (Auto)2019-07-15 06:02:00 Test Item Value Reference Range Interpretation Comments Monocytes (%) (Auto) (test code = 11.3 4.4-11.3 5905-5) [facility]Eosinophils (%) (Auto)2019-07-15 06:02:00 Test Item Value Reference Range Interpretation Comments Eosinophils (%) (Auto) (test code = 1.9 0.0-6.0 713-8) [facility]Basophils (%) (Auto)2019-07-15 06:02:00 Test Item Value Reference Range Interpretation Comments Basophils (%) (Auto) (test code = 0.8 0.0-1.0 706-2) [facility] CampusIM GRANULOCYTES %2019-07-15 06:02:00 Test Item Value Reference Range Interpretation Comments IM GRANULOCYTES % (test code = IM 0.1 0.0-1.0 GRANULOCYTES %) [facility] CampusNeutrophils # (Auto)2019-07-15 06:02:00 Test Item Value Reference Range Interpretation Comments Neutrophils # (Auto) (test code = 3.2 2.1-6.9 751-8) [facility] CampusLymphocytes # (Auto)2019-07-15 06:02:00 Test Item Value Reference Range Interpretation Comments Lymphocytes # (Auto) (test code = 3.1 1.0-3.2 09795-9) [facility] CampusMonocytes # (Auto)2019-07-15 06:02:00 Test Item Value Reference Range Interpretation Comments Monocytes # (Auto) (test code = 742-7) 0.8 0.2-0.8 [facility]Eosinophils # (Auto)2019-07-15 06:02:00 Test Item Value Reference Range Interpretation Comments Eosinophils # (Auto) (test code = 0.1 0.0-0.4 711-2) [facility]Basophils # (Auto)2019-07-15 06:02:00 Test Item Value Reference Range Interpretation Comments Basophils # (Auto) (test code = 704-7) 0.1 0.0-0.1 [facility] CampusAbsolute Immature Granulocyte (aqsv7275-03-56 06:02:00 Test Item Value Reference Range Interpretation Comments Absolute Immature Granulocyte (auto 0.01 0-0.1 (test code = Absolute Immature Granulocyte (auto) [facility] CampusTriglycerides Snjrq3531-74-65 20:14:00 Test Item Value Reference Range Interpretation Comments Triglycerides Level (test code = 282 0-149 H 2571-8) [facility] CampusCholesterol Bkbiq8678-67-07 20:14:00 Test Item Value Reference Range Interpretation Comments Cholesterol Level (test code = 2093-3) 144 0-199 Less than 200 mg/dL Low Rbik428 - 239 mg/dL Borderline Qguy581 mg/dl and greater High RiskCH[facility] CenterLDL Etsjaknmbjz4325-22-32 20:14:00 Test Item Value Reference Range Interpretation Comments LDL Cholesterol (test code = 2089-1) 37 60-130 L [facility] CampusHDL Wjxisswbsvv3533-09-82 20:14:00 Test Item Value Reference Range Interpretation Comments HDL Cholesterol (test code = 2085-9) 51 40-60 [facility] CampusCholesterol/HDL Lunph7484-64-98 20:14:00 Test Item Value Reference Range Interpretation Comments Cholesterol/HDL Ratio (test code = 2.8 3.0-3.6 L 9830-1) [facility] CampusCHEST SINGLE (PORTABLE)2019-07-14 16:51:00 [facility] [address] [place] [address] PatientName: HAYLEY LI MR #: [id number] : 1955 Age/Sex: 64/F Req #: [id number] Adm Physician: Ordered by: AISHA VIERA DATA COORDINATOR Report #: [id number] Location: ER Room/Bed: ____ Procedure: [id number] DX/CHEST SINGLE (PORTABLE) Exam Date: 07/14/19 Exam Time: 1610 REPORT STATUS: SignedEXAMINATION: CHEST SINGLE (PORTABLE) INDICATION: Shortness of breath COMPARISON: None FINDINGS: LINES /TUBES:EKG leads overlie the chest. LUNGS:The lungs are [...] Transcribed By: KEY on 07/14/191651 COPY TO: SAVANAMARIOAISHA NPB-Type Natriuretic Sozvlki4112-05-26 16:23:00 Test Item Value Reference Range Interpretation Comments B-Type Natriuretic Peptide (test code = 15.6 0-100 06469-2) [facility] CampusUrine SDV5144-52-02 16:15:00 Test Item Value Reference Range Interpretation Comments Urine WBC (test code = 5821-4) 0-5 0-5 [facility] CampusUrine DEG3427-69-25 16:15:00 Test Item Value Reference Range Interpretation Comments Urine RBC (test code = 92780-3) 0-5 0-5 [facility] CampusUrine Hkahdcpa7376-01-93 16:15:00 Test Item Value Reference Range Interpretation Comments Urine Bacteria (test code = 05483-7) NONE NONE [facility] CampusUrine Epithelial Unckj2318-61-88 16:15:00 Test Item Value Reference Range Interpretation Comments Urine Epithelial Cells (test code = RARE NONE 35073-5) [facility] CampusTotal Abevkssct4373-61-74 16:11:00 Test Item Value Reference Range Interpretation Comments Total Bilirubin (test code = 1975-2) 0.2 0.2-1.2 [facility] CampusAspartate Amino Transf (AST/SGOT)2019-07-14 16:11:00 Test Item Value Reference Range Interpretation Comments Aspartate Amino Transf (AST/SGOT) (test 28 5-34 code = Aspartate Amino Transf (AST/SGOT)) [facility] CampusAlanine Aminotransferase (ALT/SGPT)2019-07-14 16:11:00 Test Item Value Reference Range Interpretation Comments Alanine Aminotransferase (ALT/SGPT) 27 0-55 (test code = 1742-6) [facility] CampusTotal Ccuuuhx4900-63-95 16:11:00 Test Item Value Reference Range Interpretation Comments Total Protein (test code = 2885-2) 7.4 6.5-8.1 [facility] CampusAlbumin2020-03-18 16:11:00 Test Item Value Reference Range Interpretation Comments Albumin (test code = 1751-7) 3.8 3.5-5.0 [facility] CampusGlobulin2020-03-18 16:11:00 Test Item Value Reference Range Interpretation Comments Globulin (test code = 08571-1) 3.6 2.3-3.5 H [facility] CampusAlbumin/Globulin Wqrcg4848-58-87 16:11:00 Test Item Value Reference Range Interpretation Comments Albumin/Globulin Ratio (test code = 1.1 0.8-2.0 1759-0) [facility] CampusAlkaline Mdatritaurm4052-44-94 16:11:00 Test Item Value Reference Range Interpretation Comments Alkaline Phosphatase (test code = 139 40-150 6768-6) [facility] CampusProthrombin Fofc4870-20-36 16:09:00 Test Item Value Reference Range Interpretation Comments Prothrombin Time (test code = 5902-2) 12.0 11.9-14.5 [facility] CampusProthromb Time International Oonxk5543-92-58 16:09:00 Test Item Value Reference Range Interpretation Comments Prothromb Time International Ratio 0.84 (test code = 6301-6) Oral Anticoagulant Therapy INR Values:1. Low Intensity Therapy 1.5 - 2.02. Moderate Intensity Therapy 2.0 - 3.03. High Intensity Therapy(1) 2.5 - 3.54. High Intensity Therapy(2) 3.0 - 4.05. Panic ValueINR > 5.0[facility] CampusActivated Partial Thromboplast Sasr7501-15-50 16:09:00 Test Item Value Reference Range Interpretation Comments Activated Partial Thromboplast Time 30.3 23.8-35.5 (test code = 75034-7) [facility] CampusUrine Reqyv7987-96-21 16:00:00 Test Item Value Reference Range Interpretation Comments Urine Color (test code = 5778-6) YELLOW YELLOW [facility] CampusUrine Dliweqo1698-95-73 16:00:00 Test Item Value Reference Range Interpretation Comments Urine Clarity (test code = 86152-1) SL CLOUDY CLEAR [facility] CampusUrine Specific Kjhmsix3298-39-93 16:00:00 Test Item Value Reference Range Interpretation Comments Urine Specific [place] (test code = 1.020 1.010-1.025 5811-5) [facility] CampusUrine jT8627-48-62 16:00:00 Test Item Value Reference Range Interpretation Comments Urine pH (test code = 86479-7) 5.5 5-7 [facility] CampusUrine Leukocyte Ljbwvhtr6955-77-26 16:00:00 Test Item Value Reference Range Interpretation Comments Urine Leukocyte Esterase (test code = TRACE NEGATIVE H 5799-2) [facility] CampusUrine Osakkiy8285-12-93 16:00:00 Test Item Value Reference Range Interpretation Comments Urine Nitrite (test code = 81123-7) NEGATIVE NEGATIVE [facility] CampusUrine Cizzvia2694-30-08 16:00:00 Test Item Value Reference Range Interpretation Comments Urine Protein (test code = 5804-0) NEGATIVE NEGATIVE [facility] CampusUrine Glucose (UA)2019-07-14 16:00:00 Test Item Value Reference Range Interpretation Comments Urine Glucose (UA) (test code = NEGATIVE NEGATIVE 2349-9) [facility] CampusUrine Dnnvcvg2252-20-18 16:00:00 Test Item Value Reference Range Interpretation Comments Urine Ketones (test code = 94971-2) NEGATIVE NEGATIVE [facility] CampusUrine Iclfestnsrtv5272-93-91 16:00:00 Test Item Value Reference Range Interpretation Comments Urine Urobilinogen (test code = 0.2 0.2-1 14699-9) [facility] CampusUrine Zhunxejdv1868-89-45 16:00:00 Test Item Value Reference Range Interpretation Comments Urine Bilirubin (test code = 1978-6) NEGATIVE NEGATIVE [facility] CampusUrine Udxzt8984-43-42 16:00:00 Test Item Value Reference Range Interpretation Comments Urine Blood (test code = 02771-0) TRACE NEGATIVE H [facility] CampusCBC W/O WYIH6410-10-12 18:53:00 Test Item Value Reference Range Interpretation [...] fL 6.7-11.0 N = MPV) BASIC METABOLIC [id number] 18:51:00 Test Item Value Reference Range Interpretation [...] GFR) formula.Chronic kidney disease is defined as ei er kidney damageor GFR <60 mL/min/1.73 m2 for >3 months. CREATININE (test code 0.70 mg/dL 0.55-1.02 N Note change in = CREAT) reference range due to change in reagent. BUN/CREATININE RATIO 28.6 10-20 H (test code = BUN/CREA) CALCIUM (test code = 8.5 mg/dL 8.5-10.1 N CA) [id number]-[id number] 18:51:00 Test Item Value Reference Range Interpretation Comments TROPONIN-I (test code = TROPI) <0.015 ng/mL 0-0.045 N CBC W/O [id number] 18:51:00 Test Item Value Reference Range Interpretation [...] code fL 6.7-11.0 = MPV) TROPONIN I [id number] 18:36:00 Test Item Value Reference Range Interpretation Comments TROPONIN I RAPID 0.00 ng/mL <0.08 Please Note New (test code = Reference Range TROPIRAP) 0.00-0.079 ng/m L - Negative>or= 0. 08 ng/mL - Positive The us e of serial sampling and te sting protocol is are commended practice.An juliocesar vated troponin level alone is often not suffi cient fordiagnosis of myocardial infarction. [place] results obtaine d by different assay s may vary.Evaluation of the extent of myoca rdial damage based on increase of troponin would be valid only if similar methodology is used. - XR CHEST 1 [id number] 17:48:00 FAX: Cheyanne Quiroga DO Ivel: B St: REG FAX: Alphonse Ramirez MD [phone] Name: HAYLEY LI [facility] : 1955 Age/S: 63/F [address] Unit #: [id number] Loc: F[place] [address] Phys: Cheyanne Quiroga DO Acct: [id number] Dis Date: Status: REG ER PHONE #: [phone] Exam Date: 1735 FAX #: [phone] Reason: CHEST PAIN EXAMS: CPT CODE: [id number] XR CHEST 1 V 60818 REASON FOR EXAM: CHEST PAIN EXAM ORDER DATE: 09/09/2018 5:19 PM Ordering MJamie: Cheyanne Quiroga DO PROCEDURE: - XR CHEST 1 V COMPARISON: FINDINGS: Portable AP frontal view of the chest obtained at 5:35 PMshows clear lungs without evidence of consolidation. There is no evidence of effusion. The heart size is minimally enlarged. Pulmonary vasculatures are unremarkable. IMPRESSION: No active disease. at 1742 Reported and signed by: Neto Castro M.D. CC: Cheyanne Quiroga DO; Alphonse Zarate Technologist: Lc PRASAD(R) Trnscrd Date/Time/By: 09/09/2018 (7549) : By: MamiL Orig Print D/T: S: 09/09/2018 (4771) PAGE 1 Signed Report- CT ABD PELVIS W/LSWC5897-31-81 17:20:00 Name: HAYLEY LI [facility] : 1955 Age/S: 63 / F [address] [facility] Unit #: [id number] Loc: [place] [address] Phys: Cornell Solares MD Acct: [id number] Dis Date: Status: REG ER PHONE #: [phone] Exam Date: 08/22/2018 1701 FAX #: [phone] Reason: abd pain EXAMS: CPT CODE: [id number] CT ABD PELVIS W/CONT 27694 HISTORY: Abdominal pain TECHNIQUE: Immediate and delayed [address] images were obtained through the abdomen and pelvis after IV administration of 100 mL of Isovue-370 contrast. Sagittal and coronal reformatted images were generated. Automated exposure control for dose reduction. COMPARISON: 06/08/18 FINDINGS: Lung bases are clear. Normalheart size. Cholecystectomy. Mild biliary dilation, not uncommon postoperatively. Liver, pancreas, spleen, adrenal glands, and kidneys are unremarkable. Limited evaluation the GI tract without oral contrast. Stomach and small bowel are unremarkable. Colonic fecal retention. No free air or free fluid. No lymphadenopathy. Abdominal aorta is normal caliber. Urinary bladder is unremarkable. Hysterectomy.No pelvic free fluid. Bony L5-S1 fusion with posterior decompression. Degenerative changes of the spine, sacral iliac joints, and hips. IMPRESSION: No acute intra-abdominal process. Electronically Si gned by Isabell Florez D.O. on 08/22/2018 at 1720 Reported and signed by: Isabell Florez D.O. CC: Cornell Solares MD; Alphonse Zarate Technologist:Briana Ariza CTDI: DLP: Trnscb Date/Time: 08/22/2018 (1720)tADE.LDP1 Orig Print D/T: S: 08/22/2018 (1723) CTDI: DLP: PAGE 1 Signed ReportLACTIC [id number] 16:42:00 Test Item Value Reference Range Interpretation Comments LACTIC ACID (test code = LACT) 1.5 MMOL/L 0.4-1.9 N COMPREHENSIVE METABOLIC [id number] 16:35:00 Test Item Value Reference Range Interpretation [...] 38-126 N TOTAL (test code = ALKP) [id number] 16:35:00 Test Item Value Reference Range Interpretation Comments LIPASE (test code = LIP) 141 U/L 128-270 N COMPREHENSIVE METABOLIC [id number] 16:29:00 Test Item Value Reference Range Interpretation [...] TOTAL (test IUnit/L 45-117 code = ALKP) [id number] 16:29:00 Test Item Value Reference Range Interpretation Comments LIPASE (test code = LIP) Unit/L 144-286 CBC W/AUTO [id number] 16:25:00 Test Item Value Reference Range Interpretation [...] REQUIRED (test code NO = MDIFF) URINALYSIS [id number] 15:52:00 Test Item Value Reference Range Interpretation [...] NONE BACU) Urine Source? Clean CatchUR HCG [id number] 15:52:00 Test Item Value Reference Range Interpretation Comments UR HCG QUAL (test NEGATIVE This HCGQL test is NOT code = HCGQLU) applicable fo r MALE patients.Check with nurse about probable order error.If Tumor Marker Test needed, nu rse should order test "HCG TU"(Test #[id number])---- - Urine Source? Clean CatchThyroid Stimulating Hormone (TSH)2018-07-16 14:52:00 Test Item Value Reference Range Interpretation Comments Thyroid Stimulating Hormone (TSH) (test 1.902 0.350-4.940 code = 04012-1) [facility]odium Xzszn3072-76-77 14:36:00 Test Item Value Reference Range Interpretation Comments Sodium Level (test code = 2951-2) 133 136-145 L [facility] CampusPotassium Whyyg3902-66-63 14:36:00 Test Item Value Reference Range Interpretation Comments Potassium Level (test code = 2823-3) 3.8 3.5-5.1 [facility] CampusChloride Qyvka9209-38-01 14:36:00 Test Item Value Reference Range Interpretation Comments Chloride Level (test code = 2075-0) 100 98-107 [facility] CampusCarbon Dioxide Aovcv6075-08-69 14:36:00 Test Item Value Reference Range Interpretation Comments Carbon Dioxide Level (test code = 2027-9) [facility] CampusAnion Obn5209-15-66 14:36:00 Test Item Value Reference Range Interpretation Comments Anion Gap (test code = 29810-9) 12.8 8-16 [facility] CampusBlood Urea Wrrkpfzv5465-90-86 14:36:00 Test Item Value Reference Range Interpretation Comments Blood Urea Nitrogen (test code = 11-20 3094-0) [facility] CampusCreatinine2019-03-21 14:36:00 Test Item Value Reference Range Interpretation Comments Creatinine (test code = 2160-0) 0.83 0.57-1.11 [facility] CampusBUN/Creatinine Qfdrg2359-09-73 14:36:00 Test Item Value Reference Range Interpretation Comments BUN/Creatinine Ratio (test code = 10-20 3097-3) [facility] CampusEstimat Glomerular Filtration Ngjo0074-06-47 14:36:00 Test Item Value Reference Range Interpretation Comments Estimat Glomerular Filtration Rate > 60 >60 (test code = 553386881) Ranges were taken from the National Kidney Disease Education Program and the National Kidney Foundation literature.Reference ranges:60 or greater: Zhxoqx19- 59 (for 3 consecutive months): Chronic kidneydisease 15 or less: Kidney failure [facility] CampusGlucose Hawzr1733-87-83 14:36:00 Test Item Value Reference Range Interpretation Comments Glucose Level (test code = DHX8220) 93 74-118 [facility] CampusCalcium Ghghs6309-01-83 14:36:00 Test Item Value Reference Range Interpretation Comments Calcium Level (test code = 63276-5) 9.7 8.4-10.2 [facility] CampusMagnesium Xpqyd7044-58-31 14:36:00 Test Item Value Reference Range Interpretation Comments Magnesium Level (test code = 84425-6) 2.3 1.3-2.1 H [facility] CampusTotal Bikkziiuj4260-13-78 14:36:00 Test Item Value Reference Range Interpretation Comments Total Bilirubin (test code = 1975-2) 0.8 0.2-1.2 [facility] CampusAspartate Amino Transf (AST/SGOT)2018-07-16 14:36:00 Test Item Value Reference Range Interpretation Comments Aspartate Amino Transf (AST/SGOT) (test 33 5-34 code = Aspartate Amino Transf (AST/SGOT)) [facility] CampusAlanine Aminotransferase (ALT/SGPT)2018-07-16 14:36:00 Test Item Value Reference Range Interpretation Comments Alanine Aminotransferase (ALT/SGPT) 25 0-55 (test code = 1742-6) [facility] CampusTotal Zsjflqk7178-84-55 14:36:00 Test Item Value Reference Range Interpretation Comments Total Protein (test code = 2885-2) 8.3 6.5-8.1 H [facility] CampusAlbumin2019-03-21 14:36:00 Test Item Value Reference Range Interpretation Comments Albumin (test code = 1751-7) 4.3 3.5-5.0 [facility] CampusGlobulin2019-03-21 14:36:00 Test Item Value Reference Range Interpretation Comments Globulin (test code = 06902-1) 4.0 2.3-3.5 H [facility] CampusAlbumin/Globulin Hwjmx8827-69-86 14:36:00 Test Item Value Reference Range Interpretation Comments Albumin/Globulin Ratio (test code = 1.1 0.8-2.0 1759-0) [facility] CampusAlkaline Morcmuudbyv3580-06-82 14:36:00 Test Item Value Reference Range Interpretation Comments Alkaline Phosphatase (test code = 123 40-150 6768-6) [facility] CampusUrine [id number] 14:30:00 Test Item Value Reference Range Interpretation Comments Urine WBC (test code = 5821-4) 0-5 0-5 [facility] CampusUrine [id number] 14:30:00 Test Item Value Reference Range Interpretation Comments Urine RBC (test code = 46526-2) NONE 0-5 [facility] CampusUrine Pnscxvro0288-71-10 14:30:00 Test Item Value Reference Range Interpretation Comments Urine Bacteria (test code = 88253-6) FEW NONE [facility] CampusUrine Epithelial Nwevd3437-31-08 14:30:00 Test Item Value Reference Range Interpretation Comments Urine Epithelial Cells (test code = RARE NONE 83505-7) [facility] CampusUrine Zptkb5480-56-67 14:21:00 Test Item Value Reference Range Interpretation Comments Urine Color (test code = 5778-6) STRAW YELLOW [facility] CampusUrine Hogmweu7680-32-52 14:21:00 Test Item Value Reference Range Interpretation Comments Urine Clarity (test code = 28438-5) CLEAR CLEAR [facility] CampusUrine Specific Rsxtrsv0781-91-14 14:21:00 Test Item Value Reference Range Interpretation Comments Urine Specific [place] (test code = 1.015 1.010-1.025 5811-5) [facility] CampusUrine sQ9688-83-18 14:21:00 Test Item Value Reference Range Interpretation Comments Urine pH (test code = 30476-0) 8 5-7 H [facility] CampusUrine Leukocyte Pvfsadjc1361-85-03 14:21:00 Test Item Value Reference Range Interpretation Comments Urine Leukocyte Esterase (test code NEGATIVE NEGATIVE = 5799-2) [facility] CampusUrine Rzhjnys2725-00-54 14:21:00 Test Item Value Reference Range Interpretation Comments Urine Nitrite (test code = 24895-7) NEGATIVE NEGATIVE [facility] CampusUrine Patqyyp8182-78-93 14:21:00 Test Item Value Reference Range Interpretation Comments Urine Protein (test code = 5804-0) NEGATIVE NEGATIVE [facility] CampusUrine Glucose (UA)2018-07-16 14:21:00 Test Item Value Reference Range Interpretation Comments Urine Glucose (UA) (test code = NEGATIVE NEGATIVE 2349-9) [facility] CampusUrine Bnzmpby3709-12-65 14:21:00 Test Item Value Reference Range Interpretation Comments Urine Ketones (test code = 33889-4) NEGATIVE NEGATIVE [facility] CampusUrine Opiates Wrpifh2759-61-35 14:21:00 Test Item Value Reference Range Interpretation Comments Urine Opiates Screen (test code = NEGATIVE NEGATIVE 27025-8) ALL TESTS PERFORMED MANUALLY ON [employer] TOX/SEE TESTThe Hospitals of [facility] CampusUrine Barbiturates Psbpjg2792-52-44 14:21:00 Test Item Value Reference Range Interpretation Comments Urine Barbiturates Screen (test code NEGATIVE NEGATIVE = 046895637) [facility] CampusUrine Phencyclidine Kqimxg8813-88-06 14:21:00 Test Item Value Reference Range Interpretation Comments Urine Phencyclidine Screen (test NEGATIVE NEGATIVE code = 99417-4) [facility] CampusUrine Amphetamines Zflvro9871-96-72 14:21:00 Test Item Value Reference Range Interpretation Comments Urine Amphetamines Screen (test code NEGATIVE NEGATIVE = 10166-3) [facility] CampusUrine Methamphetamines Unihjt3918-00-55 14:21:00 Test Item Value Reference Range Interpretation Comments Urine Methamphetamines Screen (test NEGATIVE NEGATIVE code = Urine Methamphetamines Screen) [facility] CampusUrine Benzodiazepines Qncipy2772-38-20 14:21:00 Test Item Value Reference Range Interpretation Comments Urine Benzodiazepines Screen (test NEGATIVE NEGATIVE code = 97455-0) [facility] CampusUrine Cocaine Wmlznp0144-63-54 14:21:00 Test Item Value Reference Range Interpretation Comments Urine Cocaine Screen (test code = NEGATIVE NEGATIVE 3398-5) [facility] CampusUrine Cannabinoids Kxukea4225-03-35 14:21:00 Test Item Value Reference Range Interpretation Comments Urine Cannabinoids Screen (test code NEGATIVE NEGATIVE = 04657-2) THESE RESULTS ARE FOR MEDICAL TREATMENT ONLYTHIS REPORT CONTAINS UNCONFIRMED SCREENING RESULTS*POSITIVE RESULTS WILL BE CONFIRMED BY REFERENCE LAB UPON REQUEST CUT-OFFDRUG CLASS CONCENTRATION ng/mLAmphetamines 1000Methamphetamines 1000Cocaine 300Opiate 300Phencyclidine 25Cannabinoid 50Barbiturates 300Benzodiazepine 300Methadone 300[facility] CampusUrine Methadone Jlxmxm2783-87-51 14:21:00 Test Item Value Reference Range Interpretation Comments Urine Methadone Screen (test code = NEGATIVE NEGATIVE 19885-1) THESE RESULTS ARE FOR MEDICAL TREATMENT ONLYTHIS REPORT CONTAINS UNCONFIRMED SCREENING RESULTS*POSITIVE RESULTS WILL BE CONFIRMED BY REFERENCE LAB UPON REQUEST CUT-OFFDRUG CLASS CONCENTRATION ng/mLAmphetamines 1000Methamphetamines 1000Cocaine Metabolite 300Opiate 300Phencyclidine 25Cannabinoid 50Barbiturates 300Benzodiazepine 300Methadone 300[facility] CampusUrine Hhlgkwnclexm8931-45-77 14:21:00 Test Item Value Reference Range Interpretation Comments Urine Urobilinogen (test code = 1 0.2-1 72128-1) [facility] CampusUrine Lpmzeshwk4323-65-71 14:21:00 Test Item Value Reference Range Interpretation Comments Urine Bilirubin (test code = 1978-6) NEGATIVE NEGATIVE [facility] CampusUrine Vuuyi1807-66-73 14:21:00 Test Item Value Reference Range Interpretation Comments Urine Blood (test code = 02456-2) NEGATIVE NEGATIVE [facility] CampusWhite Blood Gdknp5288-74-28 14:17:00 Test Item Value Reference Range Interpretation Comments White Blood Count (test code = 6690-2) 9.61 4.8-10.8 [facility] CampusRed Blood [id number] 14:17:00 Test Item Value Reference Range Interpretation Comments Red Blood Count (test code = 789-8) 4.62 3.6-5.1 [facility] CampusHemoglobin2019-03-21 14:17:00 Test Item Value Reference Range Interpretation Comments Hemoglobin (test code = 57700-6) 14.7 12.0-16.0 [facility] CampusHematocrit2019-03-21 14:17:00 Test Item Value Reference Range Interpretation Comments Hematocrit (test code = 4544-3) 43.1 34.2-44.1 [facility] CampusMean Corpuscular Npwvkv9424-06-52 14:17:00 Test Item Value Reference Range Interpretation Comments Mean Corpuscular Volume (test code = 93.3 81-99 787-2) [facility] CampusMean Corpuscular Jddnesclzd5470-21-81 14:17:00 Test Item Value Reference Range Interpretation Comments Mean Corpuscular Hemoglobin (test code 31.8 28-32 = 785-6) [facility] CampusMean Corpuscular Hemoglobin Kqucukc9079-09-96 14:17:00 Test Item Value Reference Range Interpretation Comments Mean Corpuscular Hemoglobin Concent 34.1 31-35 (test code = 786-4) [facility] CampusRed Cell Distribution Wljas8416-31-20 14:17:00 Test Item Value Reference Range Interpretation Comments Red Cell Distribution Width (test code 12.3 11.7-14.4 = 41732-6) [facility] CampusPlatelet Emzdc7066-71-50 14:17:00 Test Item Value Reference Range Interpretation Comments Platelet Count (test code = 777-3) 262 140-360 [facility] CampusNeutrophils (%) (Auto)2018-07-16 14:17:00 Test Item Value Reference Range Interpretation Comments Neutrophils (%) (Auto) (test code = 55.3 38.7-80.0 40935-2) [facility] CampusLymphocytes (%) (Auto)2018-07-16 14:17:00 Test Item Value Reference Range Interpretation Comments Lymphocytes (%) (Auto) (test code = 35.9 18.0-39.1 736-9) [facility] CampusMonocytes (%) (Auto)2018-07-16 14:17:00 Test Item Value Reference Range Interpretation Comments Monocytes (%) (Auto) (test code = 6.6 4.4-11.3 5905-5) [facility] CampusEosinophils (%) (Auto)2018-07-16 14:17:00 Test Item Value Reference Range Interpretation Comments Eosinophils (%) (Auto) (test code = 1.2 0.0-6.0 713-8) [facility] CampusBasophils (%) (Auto)2018-07-16 14:17:00 Test Item Value Reference Range Interpretation Comments Basophils (%) (Auto) (test code = 0.7 0.0-1.0 706-2) [facility] CampusIM GRANULOCYTES %2018-07-16 14:17:00 Test Item Value Reference Range Interpretation Comments IM GRANULOCYTES % (test code = IM 0.3 0.0-1.0 GRANULOCYTES %) [facility] CampusNeutrophils # (Auto)2018-07-16 14:17:00 Test Item Value Reference Range Interpretation Comments Neutrophils # (Auto) (test code = 5.3 2.1-6.9 751-8) [facility] CampusLymphocytes # (Auto)2018-07-16 14:17:00 Test Item Value Reference Range Interpretation Comments Lymphocytes # (Auto) (test code = 3.5 1.0-3.2 H 12212-7) [facility] CampusMonocytes # (Auto)2018-07-16 14:17:00 Test Item Value Reference Range Interpretation Comments Monocytes # (Auto) (test code = 742-7) 0.6 0.2-0.8 [facility] CampusEosinophils # (Auto)2018-07-16 14:17:00 Test Item Value Reference Range Interpretation Comments Eosinophils # (Auto) (test code = 0.1 0.0-0.4 711-2) [facility] CampusBasophils # (Auto)2018-07-16 14:17:00 Test Item Value Reference Range Interpretation Comments Basophils # (Auto) (test code = 704-7) 0.1 0.0-0.1 [facility] CampusAbsolute Immature Granulocyte ([id number] 14:17:00 Test Item Value Reference Range Interpretation Comments Absolute Immature Granulocyte (auto 0.03 0-0.1 (test code = Absolute Immature Granulocyte (auto) [facility] ABD PELVIS W/O [id number] 13:15:00 Name: HAYLEY LI [place] [employer] [facility] : 1955 Age/S: 63 / F [address] Unit #: [id number] Loc: Fuad [place]car[place] [address] Phys: Ab Harley MD Acct: [id number] Dis Date: Status: REG ER PHONE #: [phone] Exam Date: 06/08/2018 1258 FAX #: [phone] Reason: abdominal pain EXAMS: CPT CODE: [id number] CT ABD PELVIS W/O CONT 56363 HISTORY: Abdominal pain. COMPARISON: CT scan from January 10, 2016. CT abdomen and pelvis: Stone protocol. Automated exposure control. CT ABDOMEN: The lung bases are clear. Dependent changes. The liver is unremarkable on this noncontrast exam. Patient is post cholecystectomy. Unremarkable spleen. The stomach distends incompletely however it is normal in appearance. Noncontrast pancreas and adrenals are unremarkable. Kidneys arefree from hydroureteronephrosis. No calyceal stones. Interpolar scarring bilaterally. No pathologic adenopathy. Unremarkable unopacified vasculature. No bowel obstruction or colitis or diverticulitis or enteritis. Constipation. CT PELVIS: Appendix is poorly visible but appears grossly normal. Pelvic bowel loops are unobstructed. Unremarkable incompletely distended urinary bladder. Patient is post hysterectomy. No free fluid or free air. No pelvic pathologic adenopathy. Subcutaneous tissues and the musculature are normal in appearance. No lytic or blastic lesions visible within the bony skeleton. DJD. Postop changes at L5 level. IMPRESSION: No acute intra-abdominal or intrapelvic pathology. PAGE 1 Signed Report (CONTINUED) Name: HAYLEY LI [facility] : 1955ge/S: 63 / F [address] Unit #: [id number] Loc: Fuad Alcaraz [address] Phys: Ab Harley MD Acct: [id number] Dis Date: Status: REG ER PHONE #: [phone] Exam Date: 06/08/2018 1258 FAX #: [phone] Reason: abdominal pain EXAMS: CPT CODE: [id number] CT ABD PELVIS W/O CONT 82535 (Continued) at 4867 Reported and signed by: Reilly Khan M.D. CC: Ab Harley MD Technologist:Melinda Fuentes CTDI: DLP: Trnscb Date/Time: 06/08/2018 (0249) ThaddeusTH4 Orig Print D/T: S: 06/08/2018 (8068) CTDI: DLP: PAGE 2 Signed ReportURINALYSIS [id number] 12:38:00 Test Item Value Reference Range Interpretation [...] LPF = AMORU) Urine Source? Clean CatchURINALYSIS [id number] 12:35:00 Test Item Value Reference Range Interpretation [...] per HPF 0-5 Urine Source? Clean CatchSodium Ihqbd7435-28-64 19:11:00 Test Item Value Reference Range Interpretation Comments Sodium Level (test code = 2951-2) 145 136-145 [facility] CampusPotassium Lqrcc7970-62-23 19:11:00 Test Item Value Reference Range Interpretation Comments Potassium Level (test code = 2823-3) 3.4 3.5-5.1 L [facility] CampusChloride Izsae0398-43-94 19:11:00 Test Item Value Reference Range Interpretation Comments Chloride Level (test code = 2075-0) 112 98-107 H [facility] CampusCarbon Dioxide Gwhmg1752-79-30 19:11:00 Test Item Value Reference Range Interpretation Comments Carbon Dioxide Level (test code = 8-9) [facility] CampusAnion [id number] 19:11:00 Test Item Value Reference Range Interpretation Comments Anion Gap (test code = 74239-3) 14.4 8-16 [facility] CampusBlood Urea Rsictdpj9319-64-27 19:11:00 Test Item Value Reference Range Interpretation Comments Blood Urea Nitrogen (test code = 11-20 3094-0) [facility] CampusCreatinine2018-07-28 19:11:00 Test Item Value Reference Range Interpretation Comments Creatinine (test code = 2160-0) 0.73 0.57-1.11 [facility] CampusBUN/Creatinine Pxycy3107-95-33 19:11:00 Test Item Value Reference Range Interpretation Comments BUN/Creatinine Ratio (test code = 10-20 3097-3) [facility] CampusEstimat Glomerular Filtration Nsbz6645-40-42 19:11:00 Test Item Value Reference Range Interpretation Comments Estimat Glomerular Filtration Rate 60- >60 (test code = 96121-2) Ranges were taken from the National Kidney Disease Education Program and the National Kidney Foundation literature.Reference ranges:60 or greater: Qxttdt76- 59 (for 3 consecutive months): Chronic kidneydisease 15 or less: Kidney failure [facility] CampusGlucose Uewad0718-12-74 19:11:00 Test Item Value Reference Range Interpretation Comments Glucose Level (test code = RRB3738) 83 74-118 [facility] CampusCalcium Tcipi2433-57-31 19:11:00 Test Item Value Reference Range Interpretation Comments Calcium Level (test code = 12312-1) 8.7 8.4-10.2 [facility] CampusTotal Vrgdebgyk0956-39-62 19:11:00 Test Item Value Reference Range Interpretation Comments Total Bilirubin (test code = 1975-2) 0.3 0.2-1.2 [facility] CampusAspartate Amino Transf (AST/SGOT)2017-11-22 19:11:00 Test Item Value Reference Range Interpretation Comments Aspartate Amino Transf (AST/SGOT) (test 24 5-34 code = Aspartate Amino Transf (AST/SGOT)) [facility] CampusAlanine Aminotransferase (ALT/SGPT)2017-11-22 19:11:00 Test Item Value Reference Range Interpretation Comments Alanine Aminotransferase (ALT/SGPT) 13 0-55 (test code = 1742-6) [facility] CampusTotal Bsiaqlj2879-50-79 19:11:00 Test Item Value Reference Range Interpretation Comments Total Protein (test code = 2885-2) 7.0 6.5-8.1 [facility] CampusAlbumin2018-07-28 19:11:00 Test Item Value Reference Range Interpretation Comments Albumin (test code = 1751-7) 3.8 3.5-5.0 [facility] CampusGlobulin2018-07-28 19:11:00 Test Item Value Reference Range Interpretation Comments Globulin (test code = 20380-8) 3.2 2.3-3.5 [facility] CampusAlbumin/Globulin Naezr3763-57-92 19:11:00 Test Item Value Reference Range Interpretation Comments Albumin/Globulin Ratio (test code = 1.2 0.8-2.0 1759-0) [facility] CampusAlkaline Imwoapjoscd1493-37-73 19:11:00 Test Item Value Reference Range Interpretation Comments Alkaline Phosphatase (test code = 102 40-795 6768-6) [facility] CampusCT BRAIN [id number] 18:04:00 [facility] [address] [address] PatientName: HAYLEY LI MR #: [id number] : 1955 Age/Sex: 62/F Req #: [id number] Adm Physician: Ordered by: LEROY CEDEÑO MD Report #: [id number] Location: ER Room/Bed: __ Procedure: [id number] CT/CT BRAIN WO Exam Date: 11/22/17 Exam Time: 1719 REPORT STATUS: Signed ADDENDUM #1 Dose modulation, iterative reconstruction, and/or weight based adjustment of the mA/kV was utilized to reduce the radiation dose to as low as reasonably achievable. Signed by: DR Yuan Davis M.D. on 12/23/2017 7:38 PM ORIGINAL REPORT History:Headache, dizziness Comparison studies:CT head 05/22/2008 Technique: Axial images were obtained from the skull base to the vertex. Coronal and sagittal images reconstructed from the axial data. Intravenous contrast: None Findings: Scalp/skull: No abnormalities. Extra-axial spaces: No masses. No fluid collections. Brain sulci: Mildly prominent. Ventricles: Mild compensatory dilatation. No hydrocephalus. Parenchyma:Again seen cortically based hypodensity with volume loss of the left anterior frontal pole. Few hypodensities in the supratentorial white matter are small vessel ischemic changes. No masses, hemorrhage, acute or chronic cortical vascular insults. Sellar/suprasellar region: No abnormalities. Craniocervical junction: Patent foramen magnum. No Chiari one malformation. Incidental findings: Atherosclerotic calcifications in the carotid siphons . Impression: No acute abnormalities. Chronic findings: 1. Mild age-related generalized volume loss. 2. Mild supratentorial white matter small vessel ischemic changes. 3. 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 on 11/22/2017 6:08 PM Dictated By: RONAL ROWE 37 Transcribed By: KEY on 11/22/171807 COPY TO: LEROY CEDEÑO MDWhite Blood Count 2017-11-22 17:48:00 Test Item Value Reference Range Interpretation Comments White Blood Count (test code = 6690-2) 6.01 4.8-10.8 [facility] CampusRed Blood [id number] 17:48:00 Test Item Value Reference Range Interpretation Comments Red Blood Count (test code = 789-8) 4.09 3.6-5.1 [facility] CampusHemoglobin2018-07-28 17:48:00 Test Item Value Reference Range Interpretation Comments Hemoglobin (test code = 22301-7) 12.6 12.0-16.0 [facility] CampusHematocrit2018-07-28 17:48:00 Test Item Value Reference Range Interpretation Comments Hematocrit (test code = 4544-3) 37.8 34.2-44.1 [facility] CampusMean Corpuscular [id number] 17:48:00 Test Item Value Reference Range Interpretation Comments Mean Corpuscular Volume (test code = 92.4 81-99 787-2) [facility] CampusMean Corpuscular Qemcqclcfh1745-70-94 17:48:00 Test Item Value Reference Range Interpretation Comments Mean Corpuscular Hemoglobin (test code 30.8 28-32 = 785-6) [facility] CampusMean Corpuscular Hemoglobin [id number] 17:48:00 Test Item Value Reference Range Interpretation Comments Mean Corpuscular Hemoglobin Concent 33.3 31-35 (test code = 786-4) [facility] CampusRed Cell Distribution [id number] 17:48:00 Test Item Value Reference Range Interpretation Comments Red Cell Distribution Width (test code 13.3 11.7-14.4 = 35520-7) [facility] CampusPlatelet Lmbcr5615-12-55 17:48:00 Test Item Value Reference Range Interpretation Comments Platelet Count (test code = 777-3) 238 140-360 [facility] CampusNeutrophils (%) (Auto)2017-11-22 17:48:00 Test Item Value Reference Range Interpretation Comments Neutrophils (%) (Auto) (test code = 57.8 38.7-80.0 06751-7) [facility] CampusLymphocytes (%) (Auto)2017-11-22 17:48:00 Test Item Value Reference Range Interpretation Comments Lymphocytes (%) (Auto) (test code = 31.3 18.0-39.1 736-9) [facility] CampusMonocytes (%) (Auto)2017-11-22 17:48:00 Test Item Value Reference Range Interpretation Comments Monocytes (%) (Auto) (test code = 8.0 4.4-11.3 5905-5) [facility] CampusEosinophils (%) (Auto)2017-11-22 17:48:00 Test Item Value Reference Range Interpretation Comments Eosinophils (%) (Auto) (test code = 1.7 0.0-6.0 713-8) [facility] CampusBasophils (%) (Auto)2017-11-22 17:48:00 Test Item Value Reference Range Interpretation Comments Basophils (%) (Auto) (test code = 1.0 0.0-1.0 706-2) [facility] CampusIM GRANULOCYTES %2017-11-22 17:48:00 Test Item Value Reference Range Interpretation Comments IM GRANULOCYTES % (test code = IM 0.2 0.0-1.0 GRANULOCYTES %) [facility] CampusNeutrophils # (Auto)2017-11-22 17:48:00 Test Item Value Reference Range Interpretation Comments Neutrophils # (Auto) (test code = 3.5 2.1-6.9 751-8) [facility] CampusLymphocytes # (Auto)2017-11-22 17:48:00 Test Item Value Reference Range Interpretation Comments Lymphocytes # (Auto) (test code = 1.9 1.0-3.2 77503-2) [facility] CampusMonocytes # (Auto)2017-11-22 17:48:00 Test Item Value Reference Range Interpretation Comments Monocytes # (Auto) (test code = 742-7) 0.5 0.2-0.8 [facility] CampusEosinophils # (Auto)2017-11-22 17:48:00 Test Item Value Reference Range Interpretation Comments Eosinophils # (Auto) (test code = 0.1 0.0-0.4 711-2) [facility] CampusBasophils # (Auto)2017-11-22 17:48:00 Test Item Value Reference Range Interpretation Comments Basophils # (Auto) (test code = 704-7) 0.1 0.0-0.1 [facility] CampusAbsolute Immature Granulocyte ([id number] 17:48:00 Test Item Value Reference Range Interpretation Comments Absolute Immature Granulocyte (auto 0.01 0-0.1 (test code = Absolute Immature Granulocyte (auto) [facility]
--- NOTE | 2021-12-26 18:07 | EDPHYS ---
Physician Documentation [facility] Name: Kelsi Emerson Age: 66 yrs Sex: Female : 1955 Arrival Date: 12/26/2021 Time: 17:14 Bed Waiting Private MD: ED Physician Nick Connolly HPI: 12/26 17:38 This 66 yrs old Female presents to ER via Unassigned with complaints of Hasn't cp Eaten In A Month. 17:39 general weakness, decreased appetite. Onset: The symptoms/episode began/occurred 1 cp month(s) ago. 17:39 Severity of symptoms: in the emergency department the symptoms are unchanged despite cp home interventions. 17:39 Patient reports recent hospitalization at [facility] in [place], [place] for similar results. Was cp told to schedule colonoscopy, but has not done so. No PCP. Historical: ROS: 17:41 Eyes: Negative for injury, pain, redness, and discharge. cp 17:41 Constitutional: Positive for weight loss, Negative for body aches, chills, fever. 17:41 ENT: Negative for drainage from ear(s), ear pain, sore throat, difficulty swallowing, difficulty handling secretions. 17:41 Cardiovascular: Negative for chest pain, edema, palpitations. 17:41 Respiratory: Negative for cough, shortness of breath, wheezing. 17:41 Abdomen/GI: Positive for anorexia, Negative for abdominal pain, vomiting, diarrhea, constipation, black/tarry stool, rectal bleeding. 17:41 Neuro: Positive for weakness, Negative for altered mental status, headache, numbness, syncope. 17:41 All other systems are negative. Exam: 17:42 Head/Face: Normocephalic, atraumatic. cp 17:42 Constitutional: The patient appears in no acute distress, alert, awake, non-diaphoretic, non-toxic, well developed. 17:42 Eyes: Periorbital structures: appear normal, Conjunctiva: normal, no exudate, no injection, Lids and lashes: appear normal, bilaterally. 17:42 ENT: External ear(s): are unremarkable, Nose: is normal, Mouth: Lips: moist, Oral mucosa: moist, Posterior pharynx: Airway: no evidence of obstruction, patent. 17:42 Chest/axilla: Inspection: normal. 17:42 Respiratory: the patient does not display signs of respiratory distress, Respirations: normal, no use of accessory muscles, no retractions, labored breathing, is not present, Breath sounds: are clear throughout, no decreased breath sounds, no stridor, no wheezing. 17:42 Abdomen/GI: Inspection: abdomen appears normal, Palpation: abdomen is soft and non-tender, in all quadrants. 17:42 Back: pain, is absent, ROM is normal. 17:42 Neuro: Orientation: to person, place \T\ time. Mentation: is normal, Motor: moves all fours, strength is normal, Gait: is steady, at a normal pace, without difficulty. MDM: 18:06 Patient medically screened. cp Administered Medications: No medications were administered Disposition: 19:49 Co-signature as Attending Physician, Nick OLIVER was immediately available on-site ms3 in the Emergency Department for consultation in the care of the patient.. Disposition Summary: 12/26/21 18:06 Discharge Ordered Location: Home cp Problem: an ongoing problem cp Symptoms: are unchanged cp Condition: Stable cp Diagnosis - Encounter for examination and observation for other specified reasons cp Followup: cp - With: Private Physician - When: 1 - 2 days - Reason: Recheck today's complaints Forms: - Medication Reconciliation Form cp - Thank You Letter cp - Antibiotic Education cp - Prescription Opioid Use cp Signatures: Chip Courtney PA PA cp Garcia, Victoria, RN RN Nick Uribe DO DO ms3 Corrections: (The following items were deleted from the chart) 17:48 17:45 Allergies: No Known Allergies; vg1 vg1 17:48 17:45 Home Meds: losartan oral; vg1 vg1 17:48 17:45 Home Meds: Insulin 70/30; vg1 vg1 17:48 17:45 PMHx: Hypertension; vg1 vg1 17:48 17:45 PMHx: Diabetes mellitus; vg1 vg1 17:48 17:45 PSHx: None; vg1 vg1 17:48 17:45 Immunization history: Client reports receiving the 2nd dose of the Covid vaccine, vg1 vg1 17:48 17:45 Social history: Smoking status: Patient denies any tobacco usage or history of. vg1 vg1
--- NOTE | 2021-12-26 18:07 | ER ---
Nurse's Notes [facility] Name: Kelsi Emerson Age: 66 yrs Sex: Female : 1955 Arrival Date: 12/26/2021 Time: 17:14 Bed Waiting Private MD: Diagnosis: Encounter for examination and observation for other specified reasons Presentation: 12/26 18:10 Note PT left before being triaged. tp1 Historical: ED Course: 17:14 Patient arrived in ED. rg4 17:16 Chip Courtney PA is PHCP. cp 17:16 Nick Connolly DO is Attending Physician. cp 17:45 Triage completed. vg1 17:54 Patient's name was called from ER lobby. No response. vg1 18:08 Patient's name was called from ER lobby. No response. tp1 Administered Medications: No medications were administered Outcome: 18:06 Discharge ordered by MD. cp 18:12 Patient left the ED. tp1 Signatures: Chip Courtney PA PA cp Garcia, Rubi rg4 Nely Clark RN RN vg1 Sharon Salinas RN RN tp1 Corrections: (The following items were deleted from the chart) 17:48 17:41 Chief complaint: Patient states: nausea and vomiting since yesterday, denies vg1 diarrhea or ABD pain. vg1 17:48 17:41 Coronavirus screen: Vaccine status: Patient reports receiving the 2nd dose of the vg1 covid vaccine. Client denies travel out of the [place] in the last 14 days. vg1 17:48 17:41 Ebola Screen: Patient denies exposure to infectious person. Patient denies travel vg1 to an Ebola-affected area in the 21 days before illness onset. vg1 17:48 17:41 Initial Sepsis Screen: Does the patient meet any 2 criteria? No. Patient's vg1 initial sepsis screen is negative. Does the patient have a suspected source of infection? No. Patient's initial sepsis screen is negative. vg1 17:48 17:41 Risk Assessment: Do you want to hurt yourself or someone else? Patient reports no vg1 desire to harm self or others. vg1 17:48 17:41 Onset of symptoms was December 25, 2021 vg vg1 17:48 17:41 Method Of Arrival: Ambulatory vg1 vg1 17:48 17:41 BP 179 / 115; Pulse 70bpm; Resp 18bpm; Pulse Ox 100%; Temp 97.5F Temporal; 106.59 vg1 kg; Height 5 ft. 2 in.; BMI: 42.9; Pain 0/10; vg1 17:48 17:41 Acuity: MINISTERIO 3 vg1 vg1 17:48 17:45 Allergies: No Known Allergies; vg1 vg1 17:48 17:45 Home Meds: losartan oral; vg1 vg1 17:48 17:45 Home Meds: Insulin 70/30; vg1 vg1 17:48 17:45 PMHx: Hypertension; vg1 vg1 17:48 17:45 PMHx: Diabetes mellitus; vg1 vg1 17:48 17:45 PSHx: None; vg1 vg1 17:48 17:45 Immunization history: Client reports receiving the 2nd dose of the Covid vaccine, vg1 vg1 17:48 17:45 Social history: Smoking status: Patient denies any tobacco usage or history of. vg1 vg1 17:48 17:45 General: Appears uncomfortable, Behavior is calm, cooperative, vg1 vg1 17:48 17:45 Pain: Denies pain. vg1 vg1 17:48 17:45 GI: Reports nausea, vomiting, Patient currently denies diarrhea, vg1 vg1 17:48 17:45 BP 168 / 106; vg1 vg1 17:48 17:45 Arm band placed on vg1 vg1
== END 2021-12-26 18:12 | disposition home or self-care (01) ==
LOC: ER 17:11
DX: Z02.9 Encounter for administrative examinations, unspecified (principal)

== ENCOUNTER 2024-09-03 09:51 | Emergency (ER) | payer OTHER ==
--- OUTSIDE RECORDS SUMMARY | 2024-09-03 10:11 | XMS REPORT | Continuity of Care Document ---
Author Name Unknown Address [address] [facility]. [address] [place] [address] Organization [facility] [place] Address [address] [facility]. [address] [place] [address] Support Name Relationship Address Phone MAY SHOEMAKER Personal [place] [address] MAY SHOEMAKER [place] [address] STEVE SHOEMAKER Unrelated friend . [place] [id number] [place] [address] Hayley Katz Agent [address] [place] [address] Unavailable Obtained, Not Emergency Contact Unknown Unavailab MAY Hardwick Personal Relationship [address] [place] [address] GIOVANY SHOEMAKER (DA-IN-LAW) Personal Relationship [address] [place] [address] MAY SHOEMAKER (EX HUBBY) Personal [place] [address] STEVE SHOEMAKER OT [address] [place] [address] STEVE SHOEMAKER OT [address] [place] [address] DAILY STEVENSON Sister Unknown MAY SHOEMAKER 19 SON [address] [place] [address] Unavailable RE Personal Relationship Unknown Unavai labALONZO Hardwick GKenya OTHERRELATIONSHIP Unknown Un available MAY SHOEMAKER Next of Kin [address] [place] [address] PINYOMARI, DAILY G8 OTHERRELATIONSHIP [address] [place] [address] HAYLEY KATZ Guarantor [address] [place] [address] PINYODAILY GUERRA Emergency Contact [facility] [place] [address] [place] 16 DAUGHTER Unknown Unavailab le NAVIDFOOTHILL [place] Emergency Contact [facility] [place] [address] [place] Next of Kin [address] [place] [address] PINOEYDAILY G8 OTHERRELATIONSHIP Unknown Unavail able DAILY CLEMONS Emergency [place] [place] [address] HAYLEY KATZ Guarantor [address] [place] [address] Care 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 Phone Lilly Zarate MD Primary Care Physician [phone] Go Snow Attending Clinician UnavailJANICE Stephens Attending Clinician Unavailable ISABELL EVANS Attending Clinician Unavailable DAILY MENG Attending Clinician Unava LILLY Brody Attending Clinician Unavailable Jamey Mcconnell Attending Clinician UnavailMAURICIO Skinner Attending Clinician Unavailable Leeroy Grey APRN Attending Clinician Unavaila RAMESH Phipps Attending Clinician UnaKUN Cantu Attending Clinician Unavailable Audelia Triplett Attending Clinician Unavailab ALOK Aguila Attending Clinician Unavailable Earnest Poole Attending Clinician Unavailable Kenya Steve Attending Clinician UnaGene Sesay Attending Clinician Unavailable Pranay Cheung Attending Clinician Unavaila JO-ANN Weaver PA-C Attending Clinician UnaJayce Kingsley Attending Clinician Unavaila Luis A Guerrero Attending Clinician Unavailable Daily Zazueta LVN Attending Clinician Unavailable Joseph Schwarz Attending Clinician Unavailable Anai Zheng MA Attending Clinician Unavail Triny Dahl MA Attending Clinician Unavail Jayme Otto Attending Clinician Unavailable LITO AMBROCIO Attending Clinician LEROY Magaña V Attending Clinician UnavailLilly Gudino Admitting Clinician Unavailable Morgan Barrios Admitting Clinician Leeroy Saldana APRN Admitting Clinician Unavaila MAURICIO Cervantes Admitting Clinician Unavailable KUN NOVAK Admitting Clinician Unavailable Payers Payer Name Policy Type Policy Number Effective Date Expirati on Date Source [facility] [id number] 2013 00:00:00 2021 00:00:00 [place] [id number] 2023 00:00:00 [facility] [id number] [employer] Medicare Hmo [id number] 1 00:00:00 2024 00:00:00 [facility] [employer] TRUE CHOICE MEDICARE PPO [id number] 2022 00:00:00 Blue Medicare Advantage [id number] 2022 00:00:00 [facility] [employer] [id number] 2021 00:00:00 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 Active 08-17 00:00: 00 [facility] Cerebrovas cular accident Cerebrovas cular Accident Problem Active 08-17 00:00: 00 [facility] Atrophic vaginitis Atrophic Vaginitis Problem Active 08-17 00:00: 00 [facility] Food insecurity Food insecurity Disease Active 2022-04 00:00: 00 [facility] Neck mass Neck mass Disease Active 2023-1 1-14 00:00: 00 [facility] Psychotic depression Psychotic depression Disease Active 4-18 00:00: 00 [facility] Delirium due to general medical condition Delirium due to general medical condition Disease Active 4-07 00:00: 00 [facility] STD exposure STD exposure Disease Active 3-09 00:00: 00 [facility] Weight loss, unintentio nal Weight loss, unintentio nal Disease Active 2021-04 0-26 00:00: 00 [facility] Alcohol abuse Alcohol abuse Disease Active 11-16 00:00: 00 [facility] Anemia Anemia Disease Active 11-16 00:00: 00 [facility] Encounter for screening mammogram for malignant neoplasm of breast Encounter for screening mammogram for malignant neoplasm of breast Disease Active 11-16 00:00: 00 [facility] Iron deficiency Iron deficiency Disease Active 11-16 00:00: 00 [facility] Spasm Spasm Disease Active 11-16 00:00: 00 [facility] Left knee pain Left knee pain Disease Active 10-17 00:00: 00 [facility] Hematochez ia Hematochez ia Disease Active 10-17 00:00: 00 [facility] Left knee pain Left knee pain Disease Active 10-17 00:00: 00 [facility] Essential hypertensi on, benign Essential hypertensi on, benign Disease Active 2-09 00:00: 00 [facility] Other hyperlipid emia Other hyperlipid emia Disease Active 2-09 00:00: 00 [facility] Cervicalgi a Cervicalgi a Disease Active 1-17 00:00: 00 [facility] History of stroke History of stroke Disease Active 1-17 00:00: 00 [facility] Other mixed anxiety disorders Other mixed anxiety disorders Disease Active 1-17 00:00: 00 [facility] Disorder of peripheral nervous system Disorder of peripheral nervous system Disease Active 1-17 00:00: 00 [facility] Gross's palsy Gross's palsy Disease Active 1-15 00:00: 00 [facility] Bilateral carpal tunnel syndrome Bilateral carpal tunnel syndrome Disease Active 1-15 00:00: 00 [facility] Cerebral ischemia Cerebral ischemia Disease Active 05-12 00:00: 00 [facility] Chronic pain syndrome Chronic pain syndrome Disease Active 05-12 00:00: 00 [facility] Cortical age-relate d cataract of both eyes Cortical age-relate d cataract of both eyes Disease Active 05-12 00:00: 00 [facility] Elevated liver enzymes Elevated liver enzymes Disease Active 05-12 00:00: 00 [facility] GERD (gastroeso phageal reflux disease) GERD (gastroeso phageal reflux disease) Disease Active 05-12 00:00: 00 [facility] Insomnia Insomnia Disease Active 05-12 00:00: 00 [facility] Depression with anxiety Depression with anxiety Disease Active 05-12 00:00: 00 [facility] Seasonal allergic rhinitis due to pollen Seasonal allergic rhinitis due to pollen Disease Active 05-12 00:00: 00 [facility] 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 05-12 00:00: 00 [facility] Acute right ankle pain Acute right ankle pain Disease Active 05-12 00:00: 00 [facility] Insomnia due to medical condition Insomnia due to medical condition Disease Active 05-12 00:00: 00 [facility] Alcohol abuse, in remission Alcohol abuse, in remission Disease Active 2019-04 00:00: 00 [facility] 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 rotic heart disease of mak[place] coronary artery without angina pectoris Disease Active 2019-04 00:00: 00 [facility] Iron deficiency anemia secondary to inadequate dietary iron intake Iron deficiency anemia secondary to inadequate dietary iron intake Disease Active 2019-04 00:00: 00 [facility] Osteoarthr itis of both hands Osteoarthr itis of both hands Disease Active 2019-04 00:00: 00 [facility] Vitamin B12 deficiency Vitamin B12 deficiency Disease Active 2019-04 00:00: 00 [facility] Vitamin D deficiency Vitamin D deficiency Disease Active 2019-04 00:00: 00 [facility] Seborrheic keratosis Seborrheic keratosis Disease Active 07-03 00:00: 00 [facility] Solar lentigo Solar lentigo Disease Active 07-03 00:00: 00 [facility] Xerosis cutis Xerosis cutis Disease Active 308 00:00: 00 [facility] Polyarthro tino, multiple sites Polyarthro tino, multiple sites Disease Active 11-11 00:00: 00 [facility] Lumbar disc disease Lumbar disc disease Disease Active 6 00:00: 00 [facility] Acute pancreatit is Acute pancreatit is Disease Active 2015-04 1- 00:00: 00 [facility] EPISTAXIS EPISTAXIS Active 01/12/2012 [facility] Diagnosis Active 01-11 00:00: 00 2012-01-12 12:05:00 Sara Mendez Chest pain Problem Active [facility] Dyspnea Problem Active [facility] Weight loss Problem Active [facility] Abdominal pain Problem Active [facility] Loss of appetite Problem Active [facility] Diarrhea Problem Active [facility] Dyspnea on exertion Problem Active [facility] Nausea Problem Active [facility] Urinary tract infection Problem Active [facility] Malnutriti on Problem Active [facility] Dizziness Problem Active [facility] Neuropathy of both feet Problem Active [facility] Constipati on Problem Active [facility] Non-cardia c chest pain Problem Active [facility] Pre-syncop e Problem Active [facility] Chronic pain disorder Chronic pain disorder Active Problem 12/17/2013 [facility] Primary Problem Active 2013-12-17 02:49:54 Sara Mendez BMI less than 19,adult BMI less than 19,adult Active Problem 12/17/2013 [facility] Primary Problem Active 2013-12-17 02:49:54 Sara Mendez Nausea and vomiting Nausea and vomiting Active Problem 12/17/2013 [facility] Primary Problem Active 2013-12-17 02:49:54 Sara Mendez Depression Depression Active Problem 12/17/2013 [facility] Primary Problem Active 2013-12-17 02:49:54 Sara Mendez Underweigh t Underweielmer t Active Problem 12/17/2013 [facility] Primary Problem Active 2013-12-17 02:49:54 Sara Mendez Weight loss, non-intent ional Weight loss, non-intent ional Active Problem 12/17/2013 [facility] Primary Problem Active 2013-12-17 02:49:54 Karolinaángel Morrisann Shortness of breath Shortness of breath Active Problem 12/17/2013 [facility] Primary Problem Active 2013-12-17 02:49:54 Karolinaángel finley Andrea Chest pain Chest pain Active Problem 12/17/2013 [facility] Primary Problem Active 2013-12-17 02:49:54 Sara Mendez Allergies, Adverse Reactions, Alerts Allergy Name Allergy Type Status Severity Reaction(s) Onset Date Inactive Date Treating Clinician Comments Source No Known Allergie s DA Active U 2020-04 00:00: 00 [facility] No Known Allergie s DA Active U 11-18 00:00: 00 [facility] No Known Allergie s DA Active U 08-19 00:00: 00 [facility] No Known Allergie s DA Active U 08-19 00:00: [address] [facility] N.K.JeannieA. N.K.Paul.A. Active Info Not Available 10-25 00:00: 00 Sara Mendez Keflex Keflex Active 05-09 06:00: 00 Sara Mendez Cephalex in Allergy to substanc e Active 05-09 00:00: 00 [facility] No Known Allergie s DA Active [facility] No Known/Ne w Allergie s Allergy Active [facility] Social History Social Habit Start Date Stop Date Quantity Comments Source Sexual orientation 2022-08-02 11:27:08 Heterosexual (finding) [facility] History SDOH Alcohol Frequency [facility] History SDOH Alcohol Std Drinks [facility] History SDOH Alcohol Binge [facility] History of tobacco use [facility] History of Social function 2023-03-11 00:00:00 2023-03-11 00:00:00 [facility] Exposure to SARS-CoV-2 (event) 2022-08-17 00:00:00 2022-08-27 10:12:00 Not sure [facility] History SDOH Food Worry 2022-02-20 00:00:00 2022-02-20 00:00:00 2 [facility] History SDOH Food Scarcity 2022-02-20 00:00:00 2022-02-20 00:00:00 2 [facility] Alcohol intake 2020-10-17 00:00:00 2020-10-17 00:00:00 Ex-drinker (finding) [facility] Tobacco use and exposure 2020-10-17 00:00:00 2020-10-17 00:00:00 Smokeless tobacco non-user [facility] Alcohol Comment 2020-10-16 00:00:00 2020-10-16 00:00:00 alcoholism in recovery [facility] SexualHistory: 2013-10-25 00:00:00 2013-10-25 00:00:00 [facility] Sex Assigned At 1955 00:00:00 1955 00:00:00 Female [facility] Smoking Status Start Date Stop Date Source Never Smoker [facility] Ex-smoker (finding) 2024-03-01 14:24:00 2024-03-01 14: 24:00 [facility] Medications Ordered Medication Name Filled Medication Name Start Date Stop Date Current Medication? Ordering Clinician Indication Dosage Frequency Signature (SIG) Comments Components Source Escitalopra m Oxalate Escitalopra m Oxalate 2023-04 22:11: 13 Yes 10 [facility] Mirtazapine Mirtazapine 2023-04 22:11: 00 05-24 21:50 :00 No 45 Bedtime [facility] Lactulose Lactulose 08-11 23:20: 00 03-01 22:11 :00 No 30 Every 8 Hours as needed for Constipati on [facility] Ciprofloxac in Hcl (Cipro) 500 Mg TABLET Ciprofloxac in Hcl (Cipro) 500 Mg TABLET 08-09 14:47: 00 03-01 22:11 :00 No 500 Twice A Day [facility] Pantoprazol e Sodium (Protonix) 40 Mg TABLET. Pantoprazol e Sodium (Protonix) 40 Mg TABLET. 2023Gurdeep08-09 14:47: 00 08-24 19:14 :00 No 40 Daily [facility] Meloxicam Meloxicam 08-08 04:27: 03 Yes 7.5 Twice A Day [facility] Trazodone Hcl Trazodone Hcl 08-08 02:13: 00 Yes 150 Bedtime for Insomina [facility] Propranolol Hcl (Inderal*) 10 Mg TABLET Propranolol Hcl (Inderal*) 10 Mg TABLET 08-08 02:13: 00 03-01 22:11 :00 No 10 [facility] aspirin 81 MG EC tablet 2022-04 08:44: 05 Yes 81mg QD Take 81 mg by mouth 1 (one) time each day. [facility] ferrous sulfate 325 (65 Fe) MG EC tablet 2022-04 08:44: 05 Yes Take by mouth. TAKE 1 TABLE TWICE DAILY [facility] Multiple Vitamin (multivitam in) capsule 2022-04 08:44: 05 Yes 1{capsu le} QD Take 1 capsule by mouth 1 (one) time each day. [facility] diphenhydrA MINE (BENADryl) 25 MG tablet 2022-04 08:44: 05 Yes 25mg Take 25 mg by mouth if needed for itching. [facility] mirtazapine (Remeron) 15 MG tablet 2022-04 00:00: 00 Yes [id number] 15mg Take 1 tablet (15 mg total) by mouth every night. [facility] cholecalcif consuelo (Vitamin D-3) 50 MCG (1999) capsule 09-30 11:26: 25 09-30 00:00 :00 No TAKE 1 CAPSULE DAILY [facility] Diclofenac Sodium (Voltaren) 1 % external gel 09-30 11:26: 21 09-30 00:00 :00 No Q.5D Apply topically 2 (two) times a day. [facility] senna (Senokot) 8.6 MG tablet 09-30 11:25: 48 09-30 00:00 :00 No 1{tbl} Q.5D Take 1 tablet by mouth in the morning and 1 tablet in the evening. [facility] aspirin 81 MG EC tablet 09-30 11:17: 40 Yes 81mg QD Take 81 mg by mouth 1 (one) time each day. [facility] ferrous sulfate 325 (65 Fe) MG EC tablet 09-30 11:17: 40 Yes Take by mouth. TAKE 1 TABLE TWICE DAILY [facility] Multiple Vitamin (multivitam in) capsule 09-30 11:17: 40 Yes 1{capsu le} QD Take 1 capsule by mouth 1 (one) time each day. [facility] diphenhydrA MINE (BENADryl) 25 MG tablet 09-30 11:17: 40 Yes 25mg Take 25 mg by mouth if needed for itching. [facility] aspirin 81 MG EC tablet 08-27 10:23: 42 Yes 81mg QD Take 81 mg by mouth 1 (one) time each day. [facility] Multiple Vitamin (multivitam in) capsule 08-27 10:23: 42 Yes 1{capsu le} QD Take 1 capsule by mouth 1 (one) time each day. [facility] diphenhydrA MINE (BENADryl) 25 MG tablet 08-27 10:23: 42 Yes 25mg Take 25 mg by mouth if needed for itching. [facility] diphenhydrA MINE (BENADryl) 25 MG tablet 08-13 09:29: 07 Yes 25mg Take 25 mg by mouth if needed for itching. [facility] aspirin 81 MG EC tablet 08-13 09:29: 07 Yes 81mg QD Take 81 mg by mouth 1 (one) time each day. [facility] cholecalcif consuelo (Vitamin D-3) 50 MCG (1999) capsule 08-13 09:29: 07 Yes TAKE 1 CAPSULE DAILY [facility] ferrous sulfate 325 (65 Fe) MG EC tablet 08-13 09:29: 07 Yes Take by mouth. TAKE 1 TABLE TWICE DAILY [facility] Multiple Vitamin (multivitam in) capsule 08-13 09:29: 07 Yes 1{capsu le} QD Take 1 capsule by mouth 1 (one) time each day. [facility] Diclofenac Sodium (Voltaren) 1 % external gel 08-13 09:29: 07 Yes Q.5D Apply topically 2 (two) times a day. [facility] senna (Senokot) 8.6 MG tablet 08-13 09:29: 07 Yes 1{tbl} Q.5D Take 1 tablet by mouth in the morning and 1 tablet in the evening. [facility] mirtazapine (Remeron) 15 MG tablet 08-13 00:00: 00 03-11 00:00 :00 No [id number] 15mg Take 1 tablet (15 mg total) by mouth every night. [facility] aspirin 81 MG EC tablet 08-02 11:24: 43 Yes TAKE 1 TABLET DAILY. [facility] cholecalcif consuelo (Vitamin D-3) 50 MCG (1999) capsule 08-02 11:24: 43 Yes TAKE 1 CAPSULE DAILY [facility] ferrous sulfate 325 (65 Fe) MG EC tablet 08-02 11:24: 43 Yes Take by mouth. TAKE 1 TABLE TWICE DAILY [facility] Diclofenac Sodium (Voltaren) 1 % external gel 08-02 11:24: 43 Yes Q.5D Apply topically 2 (two) times a day. [facility] senna (Senokot) 8.6 MG tablet 08-02 11:24: 43 Yes 1{tbl} Q.5D Take 1 tablet by mouth in the morning and 1 tablet in the evening. [facility] diphenhydrA MINE (BENADryl) 25 MG tablet 08-02 11:24: 43 Yes 25mg Take 25 mg by mouth if needed for itching. [facility] Multiple Vitamin (multivitam in) capsule 08-02 11:22: 22 Yes 1{capsu le} QD Take 1 capsule by mouth 1 (one) time each day. [facility] Cefdinir (Omnicef) 300 Mg CAPSULE Cefdinir (Omnicef) 300 Mg CAPSULE 07-29 20:32: 00 07-31 12:08 :00 No 300 Twice A Day [facility] Ondansetron (Zofran Odt) 4 Mg TAB.RAPDIS Ondansetron (Zofran Odt) 4 Mg TAB.RAPDIS 07-29 20:32: 00 07-31 12:08 :00 No 4 Every 6 Hours for Nausea [facility] cefdinir (Omnicef) 300 MG capsule 07-29 00:00: 00 09-30 00:00 :00 No 300mg Q.5D Take 300 mg by mouth in the morning and 300 mg before bedtime. [facility] ondansetron ODT (Zofran-ODT ) 4 MG disintegrat ing tablet 07-29 00:00: 00 09-30 00:00 :00 No 4mg Q6H Take 4 mg by mouth every 6 (six) hours. [facility] Ceftin Ceftin 07-26 19:10: 00 07-31 12:07 :00 No 300 Twice A Day [facility] Zolpidem Tartrate (Ambien) 5 Mg TABLET Zolpidem Tartrate (Ambien) 5 Mg TABLET 07-26 19:10: 07-31 12:08 :00 No 5 Bedtime [facility] zolpidem (Ambien) 5 MG tablet 07-26 00:00: 00 09-30 00:00 :00 No 5mg Take 5 mg by mouth every night. [facility] Diclofenac Sodium (Voltaren) 1 % external gel 07-04 13:35: 49 Yes Q.5D Apply topically 2 (two) times a day. [facility] senna (Senokot) 8.6 MG tablet 07-04 13:35: 49 Yes 1{tbl} Q.5D Take 1 tablet by mouth in the morning and 1 tablet in the evening. [facility] cholecalcif consuelo (Vitamin D-3) 50 MCG (1999 [place]) capsule 07-04 13:29: 01 Yes TAKE 1 CAPSULE DAILY [facility] aspirin 81 MG EC tablet 07-04 13:28: 01 Yes TAKE 1 TABLET DAILY. [facility] ferrous sulfate 325 (65 Fe) MG EC tablet 07-04 13:28: 01 Yes Take by mouth. TAKE 1 TABLE TWICE DAILY [facility] Multiple Vitamin (multivitam in) capsule 07-04 13:28: 01 Yes 1{capsu le} QD Take 1 capsule by mouth 1 (one) time each day. [facility] Potassium 99 MG tablet 2021-04 13:40: 22 02-21 00:00 :00 No TAKE 2 TABLETS DAILY [facility] montelukast (Singulair) 10 MG tablet 2021-04 13:40: 13 02-21 00:00 :00 No 10mg Take 10 mg by mouth every night. [facility] Apoaequorin (Prevagen) 10 MG capsule 2021-04 13:39: 48 02-21 00:00 :00 No TAKE 1 CAPSULE DAILY [facility] gabapentin (Neurontin) 300 MG capsule 2021-04 00:00: 00 09-30 00:00 :00 No [id number] 300mg Q.5D Take 1 capsule (300 mg total) by mouth in the morning and 1 capsule (300 mg total) in the evening. [facility] escitalopra m (Lexapro) 10 MG tablet 2021-04 00:00: 00 08-13 00:00 :00 No [id number] 10mg QD Take 1 tablet (10 mg total) by mouth 1 (one) time each day. [facility] mirtazapine (Remeron) 15 MG tablet 2021-04 00:00: 00 08-13 00:00 :00 No [id number] 15mg Take 1 tablet (15 mg total) by mouth every night. [facility] ferrous sulfate 325 (65 Fe) MG EC tablet 2021-04 14:41: 35 Yes Take by mouth. TAKE 1 TABLE TWICE DAILY [facility] Diclofenac Sodium (Voltaren) 1 % external gel 2021-04 14:41: 35 Yes Q.5D Apply topically 2 (two) times a day. [facility] Multiple Vitamin (multivitam in) capsule 2021-04 14:39: 54 Yes 1{capsu le} QD Take 1 capsule by mouth 1 (one) time each day. [facility] montelukast (Singulair) 10 MG tablet 2021-04 14:39: 54 Yes 10mg Take 10 mg by mouth every night. [facility] Potassium 99 MG tablet 2021-04 14:39: 53 Yes TAKE 2 TABLETS DAILY [facility] aspirin 81 MG EC tablet 2021-04 14:38: 54 Yes TAKE 1 TABLET DAILY. [facility] cholecalcif consuelo (Vitamin D-3) 50 MCG (1999) capsule 2021-04 14:38: 54 Yes TAKE 1 CAPSULE DAILY [facility] Apoaequorin (Prevagen) 10 MG capsule 2021-04 14:38: 54 Yes TAKE 1 CAPSULE DAILY [facility] senna (Senokot) 8.6 MG tablet 2021-04 14:36: 34 Yes 1{tbl} Q.5D Take 1 tablet by mouth in the morning and 1 tablet in the evening. [facility] traZODone (Desyrel) 50 MG tablet 2021-04 00:00: 00 08-13 00:00 :00 No [id number] 50mg Take 1 tablet (50 mg total) by mouth every night. [facility] potassium chloride CR (Klor-Con M20) 20 MEQ ER tablet 01-10 00:00: 00 Yes 40meq QD Take 40 mEq by mouth 1 (one) time each day. [facility] famotidine (Pepcid) 40 MG tablet 01-10 00:00: 00 Yes 40mg Q.5D Take 40 mg by mouth in the morning and 40 mg before bedtime. as directed. [facility] famotidine (Pepcid) 20 MG tablet 01-10 00:00: 00 Yes 20mg Q.5D Take 20 mg by mouth in the morning and 20 mg before bedtime. as directed. [facility] potassium chloride CR (Klor-Con M20) 20 MEQ ER tablet 01-10 00:00: 00 Yes 1{tbl} QD Take 1 tablet by mouth 1 (one) time each day. [facility] hydroCHLORO thiazide (HYDRODiuri l) 25 MG tablet 01-10 00:00: 00 09-30 00:00 :00 No 25mg QD Take 25 mg by mouth 1 (one) time each day. as directed [facility] traZODone (Desyrel) 50 MG tablet 01-07 00:00: 00 02-20 00:00 :00 No 50mg Take 50 mg by mouth every night. [facility] DULoxetine (Cymbalta) [address] capsule 06-25 00:00: 02-21 00:00 :00 No [id number] TAKE 1 CAPSULE(60 MG) BY MOUTH 1 TIME EACH DAY. DO NOT CRUSH OR CHEW [facility] Duloxetine Hcl (Cymbalta) 30 Mg CAPSULE. Duloxetine Hcl (Cymbalta) 30 Mg CAPSULE. 05-24 20:54: 00 05-24 21:54 :00 No 30 Daily [facility] Gabapentin (Gabapentin *) 300 Mg CAPSULE Gabapentin (Gabapentin *) 300 Mg CAPSULE 05-24 20:53: 00 07-26 05:50 :00 No 300 Every 12 Hours for Pain [facility] Gabapentin Gabapentin 05-24 20:53: 00 05-24 21:53 :00 No 600 Daily as needed for Moderate Pain (4-6) [facility] Duloxetine Hcl Duloxetine Hcl 05-24 20:52: 00 07-26 05:50 :00 No 60 Daily [facility] Tramadol Hcl (Ultram 50MG*) 50 Mg TAB Tramadol Hcl (Ultram 50MG*) 50 Mg TAB 05-24 20:52: 00 07-26 05:50 :00 No 50 Every 6 Hours as needed for Moderate Pain (4-6) [facility] Zolpidem Tartrate (Ambien) 10 Mg TABLET Zolpidem Tartrate (Ambien) 10 Mg TABLET 05-24 20:52: 00 07-16 15:06 :00 No 10 Qhs [facility] Alprazolam (Xanax) 0.25 Mg TABLET Alprazolam (Xanax) 0.25 Mg TABLET 05-24 20:50: 00 05-24 21:50 :00 No Every 12 Hours for Anxiety [facility] Aspirin (Aspir 81) 81 Mg TABLET. Aspirin (Aspir 81) 81 Mg TABLET. 05-24 20:50: 00 05-24 21:50 :00 No Daily [facility] Famotidine (Pepcid) 20 Mg TABLET Famotidine (Pepcid) 20 Mg TABLET 05-24 20:50: 00 05-24 21:50 :00 No 20 Twice A Day as needed for Indigestio n [facility] Losartan Potassium Losartan Potassium 05-24 20:50: 00 05-24 21:50 :00 No 25 Daily [facility] Trazodone Trazodone 05-24 20:50: 00 05-24 21:50 :00 No 50 Bedtime for Depression [facility] gabapentin (Neurontin) 300 MG capsule 01-02 00:00: 00 02-21 00:00 :00 No [id number] TAKE 1 CAPSULE(30 0 MG) BY MOUTH TWICE DAILY [facility] DULoxetine (Cymbalta) [address] capsule 12 00:00: 00 06-06 05:59 :00 No [id number] 60mg QD Take 1 capsule (60 mg total) by mouth 1 (one) time each day. Do not crush or chew. [facility] losartan (Cozaar) 25 MG tablet 10-18 00:00: 00 09-30 00:00 :00 No 25mg QD Take 25 mg by mouth 1 (one) time each day. [facility] Apoaequorin (Prevagen) 10 MG capsule 10-17 15:34: 41 Yes TAKE 1 CAPSULE DAILY [facility] montelukast (Singulair) 10 MG tablet 10-17 15:34: 41 Yes 10mg Take 10 mg by mouth every night. [facility] Diclofenac Sodium (Voltaren) 1 % external gel 10-17 15:34: 41 Yes Q.5D Apply topically 2 (two) times a day. [facility] Potassium 99 MG tablet 10-17 15:34: 41 Yes TAKE 2 TABLETS DAILY [facility] aspirin 81 MG EC tablet 10-17 15:33: 45 Yes TAKE 1 TABLET DAILY. [facility] Diclofenac Sodium (Voltaren) 1 % external gel 10-17 10:34: 41 Yes Q.5D Apply topically 2 (two) times a day. [facility] Potassium 99 MG tablet 10-17 10:34: 41 Yes TAKE 2 TABLETS DAILY [facility] Apoaequorin (Prevagen) 10 MG capsule 10-17 10:34: 41 Yes TAKE 1 CAPSULE DAILY [facility] montelukast (Singulair) 10 MG tablet 10-17 10:34: 41 Yes 10mg Take 10 mg by mouth every night. [facility] aspirin 81 MG EC tablet 10-17 10:33: 45 Yes TAKE 1 TABLET DAILY. [facility] gabapentin (Neurontin) 300 MG capsule 10-17 00:00: 00 12-17 04:59 :00 No [id number] 300mg Q.5D Take 1 capsule (300 mg total) by mouth 2 (two) times a day. [facility] ferrous sulfate 325 (65 Fe) MG EC tablet 10-16 18:27: 00 Yes Take by mouth. TAKE 1 TABLE TWICE DAILY [facility] Multiple Vitamin (multivitam in) capsule 10-16 18:27: 00 Yes 1{capsu le} QD Take 1 capsule by mouth 1 (one) time each day. [facility] Multiple Vitamin (multivitam in) capsule 10-16 18:27: 00 Yes 1{capsu le} QD Take 1 capsule by mouth 1 (one) time each day. [facility] cholecalcif consuelo (Vitamin D-3) 50 MCG (1999) capsule 10-16 18:20: 00 Yes TAKE 1 CAPSULE DAILY [facility] ferrous sulfate 325 (65 Fe) MG EC tablet 10-16 13:27: 00 Yes Take by mouth. TAKE 1 TABLE TWICE DAILY [facility] Multiple Vitamin (multivitam in) capsule 10-16 13:27: 00 Yes 1{capsu le} QD Take 1 capsule by mouth 1 (one) time each day. [facility] cholecalcif consuelo (Vitamin D-3) 50 MCG (1999) capsule 10-16 13:20: 00 Yes TAKE 1 CAPSULE DAILY [facility] losartan (Cozaar) 50 MG tablet 209 00:00: 00 02-21 00:00 :00 No 50mg QD Take 50 mg by mouth 1 (one) time each day. [facility] Ferrous Sulfate (Ferrous Sulfate*) 325 Mg TABLET Ferrous Sulfate (Ferrous Sulfate*) 325 Mg TABLET 08-24 19:14: 00 08-24 19:14 :00 No [facility] Loratadine Loratadine 07-15 07:12: 00 05-24 21:50 :00 No 10 Daily [facility] Benzonatate (Tessalon Perle) 100 Mg CAPSULE Benzonatate (Tessalon Perle) 100 Mg CAPSULE 07-15 07:12: 00 08-24 19:36 :00 No 100 Three Times A Day as needed for Cough [facility] Guaifenesin /Dextrometh orphan (Mucinex Dm Er 600-30 Mg Tablet) 1 Each TAB.ER.12H Guaifenesin /Dextrometh orphan (Mucinex Dm Er 600-30 Mg Tablet) 1 Each TAB.ER.12H 07-15 07:12: 00 08-24 19:14 :00 No 1 Every 12 Hours [facility] Cyanocobala min (Vitamin B-12) 500 MCG lozenge 12-15 00:00: 00 Yes 500ug QD Take 500 mcg by mouth 1 (one) time each day. [facility] Cyanocobala min (Vitamin B-12) 5000 MCG tablet dispersible 12-15 00:00: 00 Yes one tablet daily. [facility] Clopidogrel Bisulfate 10-26 00:00: 00 Yes Regina Will 1 tablet Sara Mendez Albuterol Sulfate HFA 10-25 00:00: 00 Yes Regina Will 2 puffs as needed Sara Mendez Nitroglycer in 10-25 00:00: 00 Yes Regina Will 1 tablet under the tongue and allow to dissolve as needed [facility] Mendez Benzonatate 10-11 00:00: 00 Yes Reg[facility] Will 1 capsule as needed [facility] [place] Amoxicillin 10-11 00:00: 00 Yes Regina Will 1 tablet [facility] M[facility] Fluoxetine HCl 10-01 00:00: 00 Yes Regina Will 1 capsule in the morning [facility] M[facility] Megestrol Acetate 10-01 00:00: 00 Yes Regina Will 5 ml [facility] M[facility] Hydrocodone -Acetaminop hen 10-01 00:00: 00 Yes Regina Will 1 tablet as needed [facility] M[facility] Promethazin e HCl 09-23 00:00: 00 Yes Regina Will 1 tablet [facility] M[facility] Fluoxetine HCl 09-22 00:00: 00 Yes Regina Will 1 capsule in the morning [facility] M[facility] tramadol 09-22 00:00: 00 Yes Regina Will 1po [facility] M[facility] Quetiapine Fumarate 09-22 00:00: 00 Yes Regina Will 1 tablet at bedtime [facility] M[facility] Milnacipran HCl 09-22 00:00: 00 Yes Regina Will 2 tablets [facility] M[facility] Citalopram Hydrobromid e 09-22 00:00: 00 Yes Regina Will 1 tablet [facility] M[facility] Naproxen Sodium 09-22 00:00: 00 Yes Regina Will as directed [facility] Meloxicam 09-22 00:00: 00 Yes Regina Will 1 tablet [facility] M[facility] Ondansetron HCl 09-22 00:00: 00 Yes Regina Will as directed [facility] Tizanidine HCl 09-22 00:00: 00 Yes Regina Will 1 tablet as needed [facility] M[facility] Fluoxetine HCl 08-30 00:00: 00 Yes Regina Will 1 capsule in the morning [facility] M[facility] Ativan 01-11 18:41: 00 No Lalit 1 mg, Route: IM, ONCE, Dosing Weight 42.727, kg, Priority: STAT, Start date: 01/12/12 13:41:00, Stop date: 01/12/12 13:41:00 Karolinaángel tushar Andrea Xanax 0.25 mg oral tablet 01-11 18:32: 00 No Lalit 0.25 mg, Route: PO, Drug form: TAB, ONCE, Dosing Weight 42.727, kg, Priority: STAT, Start date: 01/12/12 13:32:00, Stop date: 01/12/12 13:32:00 Karolinaángel tushar Andrea Levofloxaci n (Levaquin) 500 Mg TABLET Levofloxaci n (Levaquin) 500 Mg TABLET 01-06 13:04: 00 11-22 11:03 :00 No [facility] Buspirone Hcl Buspirone Hcl 11-07 16:50: 00 07-16 15:06 :00 No 30 Twice A Day [facility] Cyproheptad ine Hcl Cyproheptad ine Hcl 11-07 16:50: 00 07-16 15:06 :00 No 4 1-3 Qhs [facility] Vancomycin Vancomycin 11-07 16:50: 00 01-06 13:04 :00 No [facility] gabapentin 600 mg tablet TAKE 1 TABLET BY MOUTH TWICE DAILY gabapentin 600 mg tablet TAKE 1 TABLET BY MOUTH TWICE DAILY No gabapentin 600 mg tablet TAKE 1 TABLET BY MOUTH TWICE DAILY [facility] estradiol 0.01% (0.1 mg/gram) vaginal cream Insert 0.5 g 3 times a week by vaginal route at bedtime for 90 days. estradiol 0.01% (0.1 mg/gram) vaginal cream Insert 0.5 g 3 times a week by vaginal route at bedtime for 90 days. No .5g Q56H estradiol 0.01% (0.1 mg/gram) vaginal cream Insert 0.5 g 3 times a week by vaginal route at bedtime for 90 days. [facility] Immunizations Ordered Immunization Name Filled Immunization Name Date Status Comments Source COVID-19 Pfizer Bivalent Booster 12+yr (spencer cap) 2022-02-20 00:00:00 Completed [facility] Influenza, High Dose Seasonal (fluzone) 2022-02-20 00:00:00 Completed [facility] COVID-19 Pfizer Bivalent Booster 12+yr (spencer cap) 2022-02-20 00:00:00 Completed [facility] Influenza, High Dose Seasonal (fluzone) 2022-02-20 00:00:00 Completed [facility] COVID-19 Pfizer Bivalent 12+yr (spencer cap) 2022-02-20 00:00:00 Completed [facility] Influenza, High Dose Seasonal (fluzone) 2022-02-20 00:00:00 Completed [facility] COVID-19 Pfizer Bivalent 12+yr (spencer cap) 2022-02-20 00:00:00 Completed [facility] Influenza, High Dose Seasonal (fluzone) 2022-02-20 00:00:00 Completed [facility] Influenza, High Dose Seasonal (fluzone) 2022-02-20 00:00:00 Completed [facility] COVID-19 Pfizer Bivalent Booster 12+yr (spencer border, spencer cap) 2022-02-20 00:00:00 Completed [facility] Influenza, High Dose Seasonal (fluzone) 2022-02-20 00:00:00 Completed [facility] COVID-19 Pfizer Bivalent Booster 12+yr (spencer border, spencer cap) 2022-02-20 00:00:00 Completed [facility] COVID-19 Pfizer Bivalent Booster 12+yr (spencer cap) 2022-02-20 00:00:00 Completed [facility] Influenza, High Dose Seasonal (fluzone) 2022-02-20 00:00:00 Completed [facility] COVID-19 Pfizer Bivalent Booster 12+yr (spencer cap) 2022-02-20 00:00:00 Completed [facility] Influenza, High Dose Seasonal (fluzone) 2022-02-20 00:00:00 Completed [facility] COVID-19 Pfizer Bivalent Booster 12+yr (spencer cap) 2022-02-20 00:00:00 Completed [facility] Influenza, High Dose Seasonal (fluzone) 2022-02-20 00:00:00 Completed [facility] COVID-19 Pfizer Bivalent Booster 12+yr (spencer cap) 2022-02-20 00:00:00 Completed [facility] Influenza, High Dose Seasonal (fluzone) 2022-02-20 00:00:00 Completed [facility] COVID-19 Pfizer 12 & Over Vaccination (PURPLE-DILUTE) 2021-07-25 00:00:00 Completed [facility] COVID-19 Pfizer 12 & Over Vaccination (PURPLE-DILUTE) 2021-07-25 00:00:00 Completed [facility] COVID-19 Pfizer 12 & Over Vaccination (PURPLE-DILUTE) 2021-07-25 00:00:00 Completed [facility] COVID-19 Pfizer 12 & Over Vaccination (PURPLE-DILUTE) 2021-07-25 00:00:00 Completed [facility] COVID-19 Pfizer 12 & Over Vaccination (PURPLE-DILUTE) 2021-07-25 00:00:00 Completed [facility] COVID-19 Pfizer 12 & Over Vaccination (PURPLE-DILUTE) 2021-07-25 00:00:00 Completed [facility] COVID-19 Pfizer 12 & Over Vaccination (PURPLE-DILUTE) 2021-07-25 00:00:00 Completed [facility] COVID-19 Pfizer 12 & Over Vaccination (PURPLE-DILUTE) 2021-07-25 00:00:00 Completed [facility] COVID-19 Pfizer 12 & Over Vaccination (PURPLE-DILUTE) 2021-07-25 00:00:00 Completed [facility] COVID-19 Pfizer 12 & Over Vaccination (PURPLE-DILUTE) 2021-07-25 00:00:00 Completed [facility] COVID-19 Pfizer 12 & Over Vaccination (PURPLE-DILUTE) 2021-03-16 00:00:00 Completed [facility] COVID-19 Pfizer 12 & Over Vaccination (PURPLE-DILUTE) 2021-03-16 00:00:00 Completed [facility] COVID-19 Pfizer 12 & Over Vaccination (PURPLE-DILUTE) 2021-03-16 00:00:00 Completed [facility] COVID-19 Pfizer 12 & Over Vaccination (PURPLE-DILUTE) 2021-03-16 00:00:00 Completed [facility] COVID-19 Pfizer 12 & Over Vaccination (PURPLE-DILUTE) 2021-03-16 00:00:00 Completed [facility] COVID-19 Pfizer 12 & Over Vaccination (PURPLE-DILUTE) 2021-03-16 00:00:00 Completed [facility] COVID-19 Pfizer 12 & Over Vaccination (PURPLE-DILUTE) 2021-03-16 00:00:00 Completed [facility] COVID-19 Pfizer 12 & Over Vaccination (PURPLE-DILUTE) 2021-03-16 00:00:00 Completed [facility] COVID-19 Pfizer 12 & Over Vaccination (PURPLE-DILUTE) 2021-03-16 00:00:00 Completed [facility] COVID-19 Pfizer 12 & Over Vaccination (PURPLE-DILUTE) 2021-03-16 00:00:00 Completed [facility] Influenza, injectable, quadrivalent 2021-02-24 00:00:00 Completed [facility] Pneumococcal Conjugate PCV 13 2021-02-24 00:00:00 Completed [facility] Influenza, injectable, quadrivalent 2021-02-24 00:00:00 Completed [facility] Pneumococcal Conjugate PCV 13 2021-02-24 00:00:00 Completed [facility] Influenza, injectable, quadrivalent 2021-02-24 00:00:00 Completed [facility] Pneumococcal Conjugate PCV 13 2021-02-24 00:00:00 Completed [facility] Influenza, injectable, quadrivalent 2021-02-24 00:00:00 Completed [facility] Pneumococcal Conjugate PCV 13 2021-02-24 00:00:00 Completed [facility] Influenza, injectable, quadrivalent 2021-02-24 00:00:00 Completed [facility] Pneumococcal Conjugate PCV 13 2021-02-24 00:00:00 Completed [facility] Influenza, injectable, quadrivalent 2021-02-24 00:00:00 Completed [facility] Pneumococcal Conjugate PCV 13 2021-02-24 00:00:00 Completed [facility] Influenza, injectable, quadrivalent 2021-02-24 00:00:00 Completed [facility] Pneumococcal Conjugate PCV 13 2021-02-24 00:00:00 Completed [facility] Influenza, injectable, quadrivalent 2021-02-24 00:00:00 Completed [facility] Pneumococcal Conjugate PCV 13 2021-02-24 00:00:00 Completed [facility] Influenza, injectable, quadrivalent 2021-02-24 00:00:00 Completed [facility] Pneumococcal Conjugate PCV 13 2021-02-24 00:00:00 Completed [facility] Influenza, injectable, quadrivalent 2021-02-24 00:00:00 Completed [facility] Pneumococcal Conjugate PCV 13 2021-02-24 00:00:00 Completed [facility] Covid-19 Pfizer SARS-CoV-2 Vaccination 2020-08-26 00:00:00 Completed [facility] COVID-19 Pfizer 12 & Over Vaccination (PURPLE-DILUTE) 2020-08-26 00:00:00 Completed [facility] Covid-19 Pfizer SARS-CoV-2 Vaccination 2020-08-26 00:00:00 Completed [facility] COVID-19 Pfizer 12 & Over Vaccination (PURPLE-DILUTE) 2020-08-26 00:00:00 Completed [facility] COVID-19 Pfizer 12 & Over Vaccination (PURPLE-DILUTE) 2020-08-26 00:00:00 Completed [facility] COVID-19 Pfizer 12 & Over Vaccination (PURPLE-DILUTE) 2020-08-26 00:00:00 Completed [facility] Covid-19 Pfizer SARS-CoV-2 Vaccination 2020-08-26 00:00:00 Completed [facility] Covid-19 Pfizer SARS-CoV-2 Vaccination 2020-08-26 00:00:00 Completed [facility] Covid-19 Pfizer SARS-CoV-2 Vaccination 2020-08-26 00:00:00 Completed [facility] Covid-19 Pfizer SARS-CoV-2 Vaccination 2020-08-26 00:00:00 Completed [facility] Covid-19 Pfizer SARS-CoV-2 Vaccination 2020-08-26 00:00:00 Completed [facility] Covid-19 Pfizer SARS-CoV-2 Vaccination 2020-08-26 00:00:00 Completed [facility] Covid-19 Pfizer SARS-CoV-2 Vaccination 2020-08-26 00:00:00 Completed [facility] Covid-19 Pfizer SARS-CoV-2 Vaccination 2020-08-26 00:00:00 Completed [facility] Covid-19 Pfizer SARS-CoV-2 Vaccination 2020-08-26 00:00:00 Completed [facility] Covid-19 Pfizer SARS-CoV-2 Vaccination 2020-08-26 00:00:00 Completed [facility] Covid-19 Pfizer SARS-CoV-2 Vaccination 2020-08-26 00:00:00 Completed [facility] Covid-19 Pfizer SARS-CoV-2 Vaccination 2020-08-26 00:00:00 Completed [facility] COVID-19 Pfizer 12 & Over Vaccination 2020-08-26 00:00:00 Completed [facility] COVID-19 Pfizer 12 & Over Vaccination (PURPLE-DILUTE) 2020-08-26 00:00:00 Completed [facility] COVID-19 Pfizer 12 & Over Vaccination (PURPLE-DILUTE) 2020-08-26 00:00:00 Completed [facility] COVID-19 Pfizer 12 & Over Vaccination (PURPLE-DILUTE) 2020-08-26 00:00:00 Completed [facility] COVID-19 Pfizer 12 & Over Vaccination (PURPLE-DILUTE) 2020-08-26 00:00:00 Completed [facility] COVID-19 Pfizer 12 & Over Vaccination (PURPLE-DILUTE) 2020-08-26 00:00:00 Completed [facility] COVID-19 Pfizer 12 & Over Vaccination (PURPLE-DILUTE) 2020-08-26 00:00:00 Completed [facility] Covid-19 Pfizer SARS-CoV-2 Vaccination 2020-07-29 00:00:00 Completed [facility] COVID-19 Pfizer 12 & Over Vaccination (PURPLE-DILUTE) 2020-07-29 00:00:00 Completed [facility] Covid-19 Pfizer SARS-CoV-2 Vaccination 2020-07-29 00:00:00 Completed [facility] COVID-19 Pfizer 12 & Over Vaccination (PURPLE-DILUTE) 2020-07-29 00:00:00 Completed [facility] COVID-19 Pfizer 12 & Over Vaccination (PURPLE-DILUTE) 2020-07-29 00:00:00 Completed [facility] COVID-19 Pfizer 12 & Over Vaccination (PURPLE-DILUTE) 2020-07-29 00:00:00 Completed [facility] Covid-19 Pfizer SARS-CoV-2 Vaccination 2020-07-29 00:00:00 Completed [facility] Covid-19 Pfizer SARS-CoV-2 Vaccination 2020-07-29 00:00:00 Completed [facility] Covid-19 Pfizer SARS-CoV-2 Vaccination 2020-07-29 00:00:00 Completed [facility] Covid-19 Pfizer SARS-CoV-2 Vaccination 2020-07-29 00:00:00 Completed [facility] Covid-19 Pfizer SARS-CoV-2 Vaccination 2020-07-29 00:00:00 Completed [facility] Covid-19 Pfizer SARS-CoV-2 Vaccination 2020-07-29 00:00:00 Completed [facility] Covid-19 Pfizer SARS-CoV-2 Vaccination 2020-07-29 00:00:00 Completed [facility] Covid-19 Pfizer SARS-CoV-2 Vaccination 2020-07-29 00:00:00 Completed [facility] Covid-19 Pfizer SARS-CoV-2 Vaccination 2020-07-29 00:00:00 Completed [facility] Covid-19 Pfizer SARS-CoV-2 Vaccination 2020-07-29 00:00:00 Completed [facility] Covid-19 Pfizer SARS-CoV-2 Vaccination 2020-07-29 00:00:00 Completed [facility] Covid-19 Pfizer SARS-CoV-2 Vaccination 2020-07-29 00:00:00 Completed [facility] COVID-19 Pfizer 12 & Over Vaccination 2020-07-29 00:00:00 Completed [facility] COVID-19 Pfizer 12 & Over Vaccination (PURPLE-DILUTE) 2020-07-29 00:00:00 Completed [facility] COVID-19 Pfizer 12 & Over Vaccination (PURPLE-DILUTE) 2020-07-29 00:00:00 Completed [facility] COVID-19 Pfizer 12 & Over Vaccination (PURPLE-DILUTE) 2020-07-29 00:00:00 Completed [facility] COVID-19 Pfizer 12 & Over Vaccination (PURPLE-DILUTE) 2020-07-29 00:00:00 Completed [facility] COVID-19 Pfizer 12 & Over Vaccination (PURPLE-DILUTE) 2020-07-29 00:00:00 Completed [facility] COVID-19 Pfizer 12 & Over Vaccination (PURPLE-DILUTE) 2020-07-29 00:00:00 Completed [facility] Tdap 2020-02-02 00:00:00 Completed [facility] Tdap 2020-02-02 00:00:00 Completed [facility] Tdap 2020-02-02 00:00:00 Completed [facility] Tdap 2020-02-02 00:00:00 Completed [facility] Tdap 2020-02-02 00:00:00 Completed [facility] Tdap 2020-02-02 00:00:00 Completed [facility] Tdap 2020-02-02 00:00:00 Completed [facility] Tdap 2020-02-02 00:00:00 Completed [facility] Tdap 2020-02-02 00:00:00 Completed [facility] Tdap 2020-02-02 00:00:00 Completed [facility] Tdap 2020-02-02 00:00:00 Completed [facility] Tdap 2020-02-02 00:00:00 Completed [facility] Tdap 2020-02-02 00:00:00 Completed [facility] Tdap 2020-02-02 00:00:00 Completed [facility] Tdap 2020-02-02 00:00:00 Completed [facility] Tdap 2020-02-02 00:00:00 Completed [facility] Tdap 2020-02-02 00:00:00 Completed [facility] Tdap 2020-02-02 00:00:00 Completed [facility] Tdap 2020-02-02 00:00:00 Completed [facility] Tdap 2020-02-02 00:00:00 Completed [facility] Tdap 2020-02-02 00:00:00 Completed [facility] Tdap 2020-02-02 00:00:00 Completed [facility] Tdap 2020-02-02 00:00:00 Completed [facility] Tdap 2020-02-02 00:00:00 Completed [facility] Tdap 2020-02-02 00:00:00 Completed [facility] Influenza, injectable, quadrivalent, preservative free 2019-12-28 00:00:00 Completed [facility] Influenza, injectable, quadrivalent, preservative free 2019-12-28 00:00:00 Completed [facility] Influenza, injectable, quadrivalent, preservative free 2019-12-28 00:00:00 Completed [facility] Influenza, injectable, quadrivalent, preservative free 2019-12-28 00:00:00 Completed [facility] Influenza, injectable, quadrivalent, preservative free 2019-12-28 00:00:00 Completed [facility] Influenza, injectable, quadrivalent, preservative free 2019-12-28 00:00:00 Completed [facility] Influenza, injectable, quadrivalent, preservative free 2019-12-28 00:00:00 Completed [facility] Influenza, injectable, quadrivalent, preservative free 2019-12-28 00:00:00 Completed [facility] Influenza, injectable, quadrivalent, preservative free 2019-12-28 00:00:00 Completed [facility] Influenza, injectable, quadrivalent, preservative free 2019-12-28 00:00:00 Completed [facility] Influenza, injectable, quadrivalent, preservative free 2019-12-28 00:00:00 Completed [facility] Influenza, injectable, quadrivalent, preservative free 2019-12-28 00:00:00 Completed [facility] Influenza, injectable, quadrivalent, preservative free (afluria, fluarix, flulaval, fluzone) 2019-12-28 00:00:00 Completed [facility] Influenza, injectable, quadrivalent, preservative free (afluria, fluarix, flulaval, fluzone) 2019-12-28 00:00:00 Completed [facility] Influenza, injectable, quadrivalent, preservative free (afluria, fluarix, flulaval, fluzone) 2019-12-28 00:00:00 Completed [facility] Influenza, injectable, quadrivalent, preservative free (afluria, fluarix, flulaval, fluzone) 2019-12-28 00:00:00 Completed [facility] Influenza, injectable, quadrivalent, preservative free (afluria, fluarix, flulaval, fluzone) 2019-12-28 00:00:00 Completed [facility] Influenza, injectable, quadrivalent, preservative free (afluria, fluarix, flulaval, fluzone) 2019-12-28 00:00:00 Completed [facility] Influenza, injectable, quadrivalent, preservative free 2019-12-28 00:00:00 Completed [facility] Influenza, injectable, quadrivalent, preservative free (afluria, fluarix, flulaval, fluzone) 2019-12-28 00:00:00 Completed [facility] Influenza, injectable, quadrivalent, preservative free 2019-12-28 00:00:00 Completed [facility] Influenza, injectable, quadrivalent, preservative free (afluria, fluarix, flulaval, fluzone) 2019-12-28 00:00:00 Completed [facility] Influenza, injectable, quadrivalent, preservative free (afluria, fluarix, flulaval, fluzone) 2019-12-28 00:00:00 Completed [facility] Influenza, injectable, quadrivalent, preservative free (afluria, fluarix, flulaval, fluzone) 2019-12-28 00:00:00 Completed [facility] Influenza, injectable, quadrivalent, preservative free 2019-12-28 00:00:00 Completed [facility] Influenza, injectable, MDCK, preservative free, quadrivalent (flucelvax) 2019-02-15 00:00:00 Completed [facility] Influenza, injectable, MDCK, preservative free, quadrivalent 2019-02-15 00:00:00 Completed [facility] Influenza, injectable, MDCK, preservative free, quadrivalent (flucelvax) 2019-02-15 00:00:00 Completed [facility] Influenza, injectable, MDCK, preservative free, quadrivalent (flucelvax) 2019-02-15 00:00:00 Completed [facility] Influenza, injectable, MDCK, preservative free, quadrivalent (flucelvax) 2019-02-15 00:00:00 Completed [facility] Influenza, injectable, MDCK, preservative free, quadrivalent 2019-02-15 00:00:00 Completed [facility] Influenza, injectable, MDCK, preservative free, quadrivalent 2019-02-15 00:00:00 Completed [facility] Influenza, injectable, MDCK, preservative free, quadrivalent 2019-02-15 00:00:00 Completed [facility] Influenza, injectable, MDCK, preservative free, quadrivalent 2019-02-15 00:00:00 Completed [facility] Influenza, injectable, MDCK, preservative free, quadrivalent 2019-02-15 00:00:00 Completed [facility] Influenza, injectable, MDCK, preservative free, quadrivalent 2019-02-15 00:00:00 Completed [facility] Influenza, injectable, MDCK, preservative free, quadrivalent 2019-02-15 00:00:00 Completed [facility] Influenza, injectable, MDCK, preservative free, quadrivalent 2019-02-15 00:00:00 Completed [facility] Influenza, injectable, MDCK, preservative free, quadrivalent 2019-02-15 00:00:00 Completed [facility] Influenza, injectable, MDCK, preservative free, quadrivalent 2019-02-15 00:00:00 Completed [facility] Influenza, injectable, MDCK, preservative free, quadrivalent 2019-02-15 00:00:00 Completed [facility] Influenza, injectable, MDCK, preservative free, quadrivalent 2019-02-15 00:00:00 Completed [facility] Influenza, injectable, MDCK, preservative free, quadrivalent 2019-02-15 00:00:00 Completed [facility] Influenza, injectable, MDCK, preservative free, quadrivalent (flucelvax) 2019-02-15 00:00:00 Completed [facility] Influenza, injectable, MDCK, preservative free, quadrivalent (flucelvax) 2019-02-15 00:00:00 Completed [facility] Influenza, injectable, MDCK, preservative free, quadrivalent (flucelvax) 2019-02-15 00:00:00 Completed [facility] Influenza, injectable, MDCK, preservative free, quadrivalent (flucelvax) 2019-02-15 00:00:00 Completed [facility] Influenza, injectable, MDCK, preservative free, quadrivalent (flucelvax) 2019-02-15 00:00:00 Completed [facility] Influenza, injectable, MDCK, preservative free, quadrivalent (flucelvax) 2019-02-15 00:00:00 Completed [facility] Influenza, injectable, MDCK, preservative free, quadrivalent 2019-02-15 00:00:00 Completed [facility] Pneumococcal Conjugate PCV 13 2018-07-03 00:00:00 Completed [facility] Pneumococcal Conjugate PCV 13 2018-07-03 00:00:00 Completed [facility] Pneumococcal Conjugate PCV 13 2018-07-03 00:00:00 Completed [facility] Pneumococcal Conjugate PCV 13 2018-07-03 00:00:00 Completed [facility] Pneumococcal Conjugate PCV 13 2018-07-03 00:00:00 Completed [facility] Pneumococcal Conjugate PCV 13 2018-07-03 00:00:00 Completed [facility] Pneumococcal Conjugate PCV 13 2018-07-03 00:00:00 Completed [facility] Pneumococcal Conjugate PCV 13 2018-07-03 00:00:00 Completed [facility] Pneumococcal Conjugate PCV 13 2018-07-03 00:00:00 Completed [facility] Pneumococcal Conjugate PCV 13 2018-07-03 00:00:00 Completed [facility] Pneumococcal Conjugate PCV 13 2018-07-03 00:00:00 Completed [facility] Pneumococcal Conjugate PCV 13 2018-07-03 00:00:00 Completed [facility] Pneumococcal Conjugate PCV 13 2018-07-03 00:00:00 Completed [facility] Pneumococcal Conjugate PCV 13 2018-07-03 00:00:00 Completed [facility] Pneumococcal Conjugate PCV 13 2018-07-03 00:00:00 Completed [facility] Pneumococcal Conjugate PCV 13 2018-07-03 00:00:00 Completed [facility] Pneumococcal Conjugate PCV 13 2018-07-03 00:00:00 Completed [facility] Pneumococcal Conjugate PCV 13 2018-07-03 00:00:00 Completed [facility] Pneumococcal Conjugate PCV 13 2018-07-03 00:00:00 Completed [facility] Pneumococcal Conjugate PCV 13 2018-07-03 00:00:00 Completed [facility] Pneumococcal Conjugate PCV 13 2018-07-03 00:00:00 Completed [facility] Pneumococcal Conjugate PCV 13 2018-07-03 00:00:00 Completed [facility] Pneumococcal Conjugate PCV 13 2018-07-03 00:00:00 Completed [facility] Pneumococcal Conjugate PCV 13 2018-07-03 00:00:00 Completed [facility] Pneumococcal Conjugate PCV 13 2018-07-03 00:00:00 Completed [facility] Influenza, injectable, quadrivalent, preservative free (afluria, fluarix, flulaval, fluzone) 2018-03-06 00:00:00 Completed [facility] Influenza, injectable, quadrivalent, preservative free 2018-03-06 00:00:00 Completed [facility] Influenza, injectable, quadrivalent, preservative free (afluria, fluarix, flulaval, fluzone) 2018-03-06 00:00:00 Completed [facility] Influenza, injectable, quadrivalent, preservative free (afluria, fluarix, flulaval, fluzone) 2018-03-06 00:00:00 Completed [facility] Influenza, injectable, quadrivalent, preservative free (afluria, fluarix, flulaval, fluzone) 2018-03-06 00:00:00 Completed [facility] Influenza, injectable, quadrivalent, preservative free 2018-03-06 00:00:00 Completed [facility] Influenza, injectable, quadrivalent, preservative free 2018-03-06 00:00:00 Completed [facility] Influenza, injectable, quadrivalent, preservative free 2018-03-06 00:00:00 Completed [facility] Influenza, injectable, quadrivalent, preservative free 2018-03-06 00:00:00 Completed [facility] Influenza, injectable, quadrivalent, preservative free 2018-03-06 00:00:00 Completed [facility] Influenza, injectable, quadrivalent, preservative free 2018-03-06 00:00:00 Completed [facility] Influenza, injectable, quadrivalent, preservative free 2018-03-06 00:00:00 Completed [facility] Influenza, injectable, quadrivalent, preservative free 2018-03-06 00:00:00 Completed [facility] Influenza, injectable, quadrivalent, preservative free 2018-03-06 00:00:00 Completed [facility] Influenza, injectable, quadrivalent, preservative free 2018-03-06 00:00:00 Completed [facility] Influenza, injectable, quadrivalent, preservative free 2018-03-06 00:00:00 Completed [facility] Influenza, injectable, quadrivalent, preservative free 2018-03-06 00:00:00 Completed [facility] Influenza, injectable, quadrivalent, preservative free 2018-03-06 00:00:00 Completed [facility] Influenza, injectable, quadrivalent, preservative free (afluria, fluarix, flulaval, fluzone) 2018-03-06 00:00:00 Completed [facility] Influenza, injectable, quadrivalent, preservative free (afluria, fluarix, flulaval, fluzone) 2018-03-06 00:00:00 Completed [facility] Influenza, injectable, quadrivalent, preservative free (afluria, fluarix, flulaval, fluzone) 2018-03-06 00:00:00 Completed [facility] Influenza, injectable, quadrivalent, preservative free (afluria, fluarix, flulaval, fluzone) 2018-03-06 00:00:00 Completed [facility] Influenza, injectable, quadrivalent, preservative free (afluria, fluarix, flulaval, fluzone) 2018-03-06 00:00:00 Completed [facility] Influenza, injectable, quadrivalent, preservative free (afluria, fluarix, flulaval, fluzone) 2018-03-06 00:00:00 Completed [facility] Influenza, injectable, quadrivalent, preservative free 2018-03-06 00:00:00 Completed [facility] Influenza, injectable, quadrivalent, preservative free (afluria, fluarix, flulaval, fluzone) 2017-02-17 00:00:00 Completed [facility] Influenza, injectable, quadrivalent, preservative free 2017-02-17 00:00:00 Completed [facility] Influenza, injectable, quadrivalent, preservative free (afluria, fluarix, flulaval, fluzone) 2017-02-17 00:00:00 Completed [facility] Influenza, injectable, quadrivalent, preservative free (afluria, fluarix, flulaval, fluzone) 2017-02-17 00:00:00 Completed [facility] Influenza, injectable, quadrivalent, preservative free (afluria, fluarix, flulaval, fluzone) 2017-02-17 00:00:00 Completed [facility] Influenza, injectable, quadrivalent, preservative free 2017-02-17 00:00:00 Completed [facility] Influenza, injectable, quadrivalent, preservative free 2017-02-17 00:00:00 Completed [facility] Influenza, injectable, quadrivalent, preservative free 2017-02-17 00:00:00 Completed [facility] Influenza, injectable, quadrivalent, preservative free 2017-02-17 00:00:00 Completed [facility] Influenza, injectable, quadrivalent, preservative free 2017-02-17 00:00:00 Completed [facility] Influenza, injectable, quadrivalent, preservative free 2017-02-17 00:00:00 Completed [facility] Influenza, injectable, quadrivalent, preservative free 2017-02-17 00:00:00 Completed [facility] Influenza, injectable, quadrivalent, preservative free 2017-02-17 00:00:00 Completed [facility] Influenza, injectable, quadrivalent, preservative free 2017-02-17 00:00:00 Completed [facility] Influenza, injectable, quadrivalent, preservative free 2017-02-17 00:00:00 Completed [facility] Influenza, injectable, quadrivalent, preservative free 2017-02-17 00:00:00 Completed [facility] Influenza, injectable, quadrivalent, preservative free 2017-02-17 00:00:00 Completed [facility] Influenza, injectable, quadrivalent, preservative free 2017-02-17 00:00:00 Completed [facility] Influenza, injectable, quadrivalent, preservative free (afluria, fluarix, flulaval, fluzone) 2017-02-17 00:00:00 Completed [facility] Influenza, injectable, quadrivalent, preservative free (afluria, fluarix, flulaval, fluzone) 2017-02-17 00:00:00 Completed [facility] Influenza, injectable, quadrivalent, preservative free (afluria, fluarix, flulaval, fluzone) 2017-02-17 00:00:00 Completed [facility] Influenza, injectable, quadrivalent, preservative free (afluria, fluarix, flulaval, fluzone) 2017-02-17 00:00:00 Completed [facility] Influenza, injectable, quadrivalent, preservative free (afluria, fluarix, flulaval, fluzone) 2017-02-17 00:00:00 Completed [facility] Influenza, injectable, quadrivalent, preservative free (afluria, fluarix, flulaval, fluzone) 2017-02-17 00:00:00 Completed [facility] Influenza, injectable, quadrivalent, preservative free 2017-02-17 00:00:00 Completed [facility] Influenza, injectable, quadrivalent, preservative free, pediatric (afluria) 2016-01-30 00:00:00 Completed [facility] Pneumococcal Polysaccharide PPV23 2016-01-30 00:00:00 Completed [facility] Influenza, injectable, quadrivalent, preservative free, pediatric 2016-01-30 00:00:00 Completed [facility] Pneumococcal Polysaccharide PPV23 2016-01-30 00:00:00 Completed [facility] Influenza, injectable, quadrivalent, preservative free, pediatric (afluria) 2016-01-30 00:00:00 Completed [facility] Pneumococcal Polysaccharide PPV23 2016-01-30 00:00:00 Completed [facility] Influenza, injectable, quadrivalent, preservative free, pediatric (afluria) 2016-01-30 00:00:00 Completed [facility] Pneumococcal Polysaccharide PPV23 2016-01-30 00:00:00 Completed [facility] Influenza, injectable, quadrivalent, preservative free, pediatric (afluria) 2016-01-30 00:00:00 Completed [facility] Pneumococcal Polysaccharide PPV23 2016-01-30 00:00:00 Completed [facility] Influenza, injectable, quadrivalent, preservative free, pediatric 2016-01-30 00:00:00 Completed [facility] Pneumococcal Polysaccharide PPV23 2016-01-30 00:00:00 Completed [facility] Influenza, injectable, quadrivalent, preservative free, pediatric 2016-01-30 00:00:00 Completed [facility] Pneumococcal Polysaccharide PPV23 2016-01-30 00:00:00 Completed [facility] Influenza, injectable, quadrivalent, preservative free, pediatric 2016-01-30 00:00:00 Completed [facility] Pneumococcal Polysaccharide PPV23 2016-01-30 00:00:00 Completed [facility] Influenza, injectable, quadrivalent, preservative free, pediatric 2016-01-30 00:00:00 Completed [facility] Pneumococcal Polysaccharide PPV23 2016-01-30 00:00:00 Completed [facility] Influenza, injectable, quadrivalent, preservative free, pediatric 2016-01-30 00:00:00 Completed [facility] Pneumococcal Polysaccharide PPV23 2016-01-30 00:00:00 Completed [facility] Influenza, injectable, quadrivalent, preservative free, pediatric 2016-01-30 00:00:00 Completed [facility] Pneumococcal Polysaccharide PPV23 2016-01-30 00:00:00 Completed [facility] Influenza, injectable, quadrivalent, preservative free, pediatric 2016-01-30 00:00:00 Completed [facility] Pneumococcal Polysaccharide PPV23 2016-01-30 00:00:00 Completed [facility] Influenza, injectable, quadrivalent, preservative free, pediatric 2016-01-30 00:00:00 Completed [facility] Pneumococcal Polysaccharide PPV23 2016-01-30 00:00:00 Completed [facility] Influenza, injectable, quadrivalent, preservative free, pediatric 2016-01-30 00:00:00 Completed [facility] Pneumococcal Polysaccharide PPV23 2016-01-30 00:00:00 Completed [facility] Influenza, injectable, quadrivalent, preservative free, pediatric 2016-01-30 00:00:00 Completed [facility] Pneumococcal Polysaccharide PPV23 2016-01-30 00:00:00 Completed [facility] Influenza, injectable, quadrivalent, preservative free, pediatric 2016-01-30 00:00:00 Completed [facility] Pneumococcal Polysaccharide PPV23 2016-01-30 00:00:00 Completed [facility] Influenza, injectable, quadrivalent, preservative free, pediatric 2016-01-30 00:00:00 Completed [facility] Pneumococcal Polysaccharide PPV23 2016-01-30 00:00:00 Completed [facility] Influenza, injectable, quadrivalent, preservative free, pediatric 2016-01-30 00:00:00 Completed [facility] Pneumococcal Polysaccharide PPV23 2016-01-30 00:00:00 Completed [facility] Influenza, injectable, quadrivalent, preservative free, pediatric (afluria) 2016-01-30 00:00:00 Completed [facility] Pneumococcal Polysaccharide PPV23 2016-01-30 00:00:00 Completed [facility] Influenza, injectable, quadrivalent, preservative free, pediatric (afluria) 2016-01-30 00:00:00 Completed [facility] Pneumococcal Polysaccharide PPV23 2016-01-30 00:00:00 Completed [facility] Influenza, injectable, quadrivalent, preservative free, pediatric (afluria) 2016-01-30 00:00:00 Completed [facility] Pneumococcal Polysaccharide PPV23 2016-01-30 00:00:00 Completed [facility] Influenza, injectable, quadrivalent, preservative free, pediatric (afluria) 2016-01-30 00:00:00 Completed [facility] Pneumococcal Polysaccharide PPV23 2016-01-30 00:00:00 Completed [facility] Influenza, injectable, quadrivalent, preservative free, pediatric (afluria) 2016-01-30 00:00:00 Completed [facility] Pneumococcal Polysaccharide PPV23 2016-01-30 00:00:00 Completed [facility] Influenza, injectable, quadrivalent, preservative free, pediatric (afluria) 2016-01-30 00:00:00 Completed [facility] Pneumococcal Polysaccharide PPV23 2016-01-30 00:00:00 Completed [facility] Influenza, injectable, quadrivalent, preservative free, pediatric 2016-01-30 00:00:00 Completed [facility] Pneumococcal Polysaccharide PPV23 2016-01-30 00:00:00 Completed [facility] Influenza, injectable, quadrivalent, preservative free (afluria, fluarix, flulaval, fluzone) 2015-02-09 00:00:00 Completed [facility] Influenza, injectable, quadrivalent, preservative free 2015-02-09 00:00:00 Completed [facility] Influenza, injectable, quadrivalent, preservative free (afluria, fluarix, flulaval, fluzone) 2015-02-09 00:00:00 Completed [facility] Influenza, injectable, quadrivalent, preservative free (afluria, fluarix, flulaval, fluzone) 2015-02-09 00:00:00 Completed [facility] Influenza, injectable, quadrivalent, preservative free (afluria, fluarix, flulaval, fluzone) 2015-02-09 00:00:00 Completed [facility] Influenza, injectable, quadrivalent, preservative free 2015-02-09 00:00:00 Completed [facility] Influenza, injectable, quadrivalent, preservative free 2015-02-09 00:00:00 Completed [facility] Influenza, injectable, quadrivalent, preservative free 2015-02-09 00:00:00 Completed [facility] Influenza, injectable, quadrivalent, preservative free 2015-02-09 00:00:00 Completed [facility] Influenza, injectable, quadrivalent, preservative free 2015-02-09 00:00:00 Completed [facility] Influenza, injectable, quadrivalent, preservative free 2015-02-09 00:00:00 Completed [facility] Influenza, injectable, quadrivalent, preservative free 2015-02-09 00:00:00 Completed [facility] Influenza, injectable, quadrivalent, preservative free 2015-02-09 00:00:00 Completed [facility] Influenza, injectable, quadrivalent, preservative free 2015-02-09 00:00:00 Completed [facility] Influenza, injectable, quadrivalent, preservative free 2015-02-09 00:00:00 Completed [facility] Influenza, injectable, quadrivalent, preservative free 2015-02-09 00:00:00 Completed [facility] Influenza, injectable, quadrivalent, preservative free 2015-02-09 00:00:00 Completed [facility] Influenza, injectable, quadrivalent, preservative free 2015-02-09 00:00:00 Completed [facility] Influenza, injectable, quadrivalent, preservative free (afluria, fluarix, flulaval, fluzone) 2015-02-09 00:00:00 Completed [facility] Influenza, injectable, quadrivalent, preservative free (afluria, fluarix, flulaval, fluzone) 2015-02-09 00:00:00 Completed [facility] Influenza, injectable, quadrivalent, preservative free (afluria, fluarix, flulaval, fluzone) 2015-02-09 00:00:00 Completed [facility] Influenza, injectable, quadrivalent, preservative free (afluria, fluarix, flulaval, fluzone) 2015-02-09 00:00:00 Completed [facility] Influenza, injectable, quadrivalent, preservative free (afluria, fluarix, flulaval, fluzone) 2015-02-09 00:00:00 Completed [facility] Influenza, injectable, quadrivalent, preservative free (afluria, fluarix, flulaval, fluzone) 2015-02-09 00:00:00 Completed [facility] Influenza, injectable, quadrivalent, preservative free 2015-02-09 00:00:00 Completed [facility] Influenza, seasonal, injectable 2014-02-01 00:00:00 Completed [facility] Influenza, seasonal, injectable 2014-02-01 00:00:00 Completed [facility] Influenza, seasonal, injectable 2014-02-01 00:00:00 Completed [facility] Influenza, seasonal, injectable 2014-02-01 00:00:00 Completed [facility] Influenza, seasonal, injectable 2014-02-01 00:00:00 Completed [facility] Influenza, seasonal, injectable 2014-02-01 00:00:00 Completed [facility] Influenza, seasonal, injectable 2014-02-01 00:00:00 Completed [facility] Influenza, seasonal, injectable 2014-02-01 00:00:00 Completed [facility] Influenza, seasonal, injectable 2014-02-01 00:00:00 Completed [facility] Influenza, seasonal, injectable 2014-02-01 00:00:00 Completed [facility] Influenza, seasonal, injectable 2014-02-01 00:00:00 Completed [facility] Influenza, seasonal, injectable 2014-02-01 00:00:00 Completed [facility] Influenza, seasonal, injectable 2014-02-01 00:00:00 Completed [facility] Influenza, seasonal, injectable 2014-02-01 00:00:00 Completed [facility] Influenza, seasonal, injectable 2014-02-01 00:00:00 Completed [facility] Influenza, seasonal, injectable 2014-02-01 00:00:00 Completed [facility] Influenza, seasonal, injectable 2014-02-01 00:00:00 Completed [facility] Influenza, seasonal, injectable 2014-02-01 00:00:00 Completed [facility] Influenza, seasonal, injectable 2014-02-01 00:00:00 Completed [facility] Influenza, seasonal, injectable 2014-02-01 00:00:00 Completed [facility] Influenza, seasonal, injectable 2014-02-01 00:00:00 Completed [facility] Influenza, seasonal, injectable 2014-02-01 00:00:00 Completed [facility] Influenza, seasonal, injectable 2014-02-01 00:00:00 Completed [facility] Influenza, seasonal, injectable 2014-02-01 00:00:00 Completed [facility] Influenza, seasonal, injectable 2014-02-01 00:00:00 Completed [facility] Tdap 2012-08-12 00:00:00 Completed [facility] Tdap 2012-08-12 00:00:00 Completed [facility] Tdap 2012-08-12 00:00:00 Completed [facility] Tdap 2012-08-12 00:00:00 Completed [facility] Tdap 2012-08-12 00:00:00 Completed [facility] Tdap 2012-08-12 00:00:00 Completed [facility] Tdap 2012-08-12 00:00:00 Completed [facility] Tdap 2012-08-12 00:00:00 Completed [facility] Tdap 2012-08-12 00:00:00 Completed [facility] Tdap 2012-08-12 00:00:00 Completed [facility] Tdap 2012-08-12 00:00:00 Completed [facility] Tdap 2012-08-12 00:00:00 Completed [facility] Tdap 2012-08-12 00:00:00 Completed [facility] Tdap 2012-08-12 00:00:00 Completed [facility] Tdap 2012-08-12 00:00:00 Completed [facility] Tdap 2012-08-12 00:00:00 Completed [facility] Tdap 2012-08-12 00:00:00 Completed [facility] Tdap 2012-08-12 00:00:00 Completed [facility] Tdap 2012-08-12 00:00:00 Completed [facility] Tdap 2012-08-12 00:00:00 Completed [facility] Tdap 2012-08-12 00:00:00 Completed [facility] Influenza, injectable, MDCK, preservative free, quadrivalent (flucelvax) Unknown Completed [facility] Influenza, injectable, quadrivalent, preservative free, pediatric (afluria) Unknown [facility], [facility] Completed [facility] Pneumococcal Polysaccharide PPV23 Unknown Completed [facility] Influenza, injectable, quadrivalent Unknown Completed [facility] COVID-19 Pfizer Bivalent 12+yr (spencer cap) Unknown Completed [facility] Influenza, High Dose Seasonal (fluzone) Unknown Completed [facility] COVID-19 Moderna (Spikevax) 12+yr Unknown Completed [facility] Influenza, injectable, quadrivalent Unknown Completed [facility] Pneumococcal Conjugate PCV 20 Unknown Completed [facility] Respiratory syncytial virus (RSV), adult Unknown Completed [facility] Zoster, Recombinant Unknown Completed [facility] COVID-19 Pfizer 12 & Over Vaccination (PURPLE-DILUTE) Unknown Completed [facility] Influenza, injectable, quadrivalent, preservative free (afluria, fluarix, flulaval, fluzone) Unknown Completed [facility] Pneumococcal Conjugate PCV 13 Unknown Completed [facility] Tdap Unknown Completed [facility] Vital Signs Vital Name Observation Time Observation Value Comments S ource BMI (Body Mass Index) 2024-08-17 00:00:00 19.1 kg/m2 [facility] Height 2024-08-17 00:00:00 59 [in_i] [facility] Body Weight 2024-08-17 00:00:00 94.4 [lb_av] [facility] BP Diastolic 2024-08-17 00:00:00 65 mm[Hg] [facility] BP Systolic 2024-08-17 00:00:00 132 mm[Hg] [facility] Oxygen saturation by Pulse oximetry 2024-03-04 17:37:00 100 /min [facility] BP Diastolic 2024-03-04 17:37:00 81 mm[Hg] [facility] BMI (Body Mass Index) 2024-03-01 21:30:00 17.3 kg/m2 [facility] Weight 2024-03-01 13:57:00 36.337913 kg [facility] Oxygen saturation by Pulse oximetry 2023-08-12 23:42:00 98 /min [facility] BP Diastolic 2023-08-12 23:42:00 84 mm[Hg] [facility] Height 2023-08-12 20:33:00 [id number] cm [facility] Weight 2023-08-12 20:33:00 34.874982 kg [facility] BMI (Body Mass Index) 2023-08-12 20:33:00 15.6 kg/m2 [facility] Oxygen saturation by Pulse oximetry 2023-08-10 13:00:00 100 /min [facility] BP Diastolic 2023-08-10 13:00:00 75 mm[Hg] [facility] Oxygen saturation by Pulse oximetry 2023-08-10 13:00:00 100 /min [facility] BP Diastolic 2023-08-10 13:00:00 75 mm[Hg] [facility] BMI (Body Mass Index) 2023-08-09 03:39:00 15.6 kg/m2 [facility] Height 2023-08-08 20:59:00 149.928126 cm [facility] Weight 2023-08-08 20:59:00 34.920529 kg [facility] Systolic blood pressure 2023-03-11 14:46:00 125 mm[Hg] [facility] Diastolic blood pressure 2023-03-11 14:46:00 83 mm[Hg] [facility] Heart rate 2023-03-11 14:46:00 90 /min [facility] temperature 2023-03-11 14:46:00 36.67 Lizette [facility] Respiratory rate 2023-03-11 14:46:00 16 /min [facility] Body height 2023-03-11 14:46:00 144.8 cm [facility] Body weight 2023-03-11 14:46:00 34.927 [facility] BMI 2023-03-11 14:46:00 16.66 kg/m2 [facility] Systolic blood pressure 2022-09-30 16:18:00 138 mm[Hg] [facility] Diastolic blood pressure 2022-09-30 16:18:00 88 mm[Hg] [facility] Heart rate 2022-09-30 16:18:00 88 /min [facility] Body temperature 2022-09-30 16:18:00 36.67 Lizette [facility] Respiratory rate 2022-09-30 16:18:00 16 /min [facility] Body height 2022-09-30 16:18:00 144.8 cm [facility] Body weight 2022-09-30 16:18:00 34.292 [facility] BMI 2022-09-30 16:18:00 16.36 kg/m2 [facility] Systolic blood pressure 2022-08-27 15:25:00 130 mm[Hg] [facility] Diastolic blood pressure 2022-08-27 15:25:00 88 mm[Hg] [facility] Heart rate 2022-08-27 15:25:00 101 /min [facility] Body temperature 2022-08-27 15:25:00 36.67 Lizette [facility] Respiratory rate 2022-08-27 15:25:00 16 /min [facility] Body height 2022-08-27 15:25:00 144.8 cm [facility] Body weight 2022-08-27 15:25:00 32.795 kg [facility] BMI 2022-08-27 15:25:00 15.65 kg/m2 [facility] Systolic blood pressure 2022-08-13 14:32:00 114 mm[Hg] [facility] Diastolic blood pressure 2022-08-13 14:32:00 72 mm[Hg] [facility] Heart rate 2022-08-13 14:32:00 71 /min [facility] Body temperature 2022-08-13 14:32:00 36.44 Lizette [facility] Respiratory rate 2022-08-13 14:32:00 16 /min [facility] Body height 2022-08-13 14:32:00 144.8 cm [facility] Body weight 2022-08-13 14:32:00 33.657 [facility] BMI 2022-08-13 14:32:00 16.06 kg/m2 [facility] Oxygen saturation in Arterial blood by Pulse oximetry 2022-08-13 14:32:00 99 /min [facility] Systolic blood pressure 2022-08-02 16:25:00 95 mm[Hg] [facility] Diastolic blood pressure 2022-08-02 16:25:00 62 mm[Hg] [facility] Heart rate 2022-08-02 16:25:00 83 /min [facility] Body temperature 2022-08-02 16:25:00 36.28 Lizette [facility] Respiratory rate 2022-08-02 16:25:00 16 /min [facility] Body height 2022-08-02 16:25:00 144.8 cm [facility] weight 2022-08-02 16:25:00 34.428 [facility] BMI 2022-08-02 16:25:00 16.42 kg/m2 [facility] Oxygen saturation by Pulse oximetry 2022-07-29 20:58:00 98 /min [facility] BP Diastolic 2022-07-29 20:58:00 84 mm[Hg] [facility] Height 2022-07-29 18:40:00 271.547372 cm [facility] [facility] Weight 2022-07-29 18:40:00 33.250346 kg [facility] BMI (Body Mass Index) 2022-07-29 18:40:00 4.5 kg/m2 [facility] Oxygen saturation by Pulse oximetry 2022-07-26 17:00:00 100 /min [facility] BP Diastolic 2022-07-26 17:00:00 66 mm[Hg] [facility] Oxygen saturation by Pulse oximetry 2022-07-26 17:00:00 100 /min [facility] BP Diastolic 2022-07-26 17:00:00 66 mm[Hg] [facility] BMI (Body Mass Index) 2022-07-26 05:42:00 14.9 kg/m2 [facility] Height 2022-07-25 23:05:00 149.341183 cm [facility] Weight 2022-07-25 23:05:00 33.531789 kg [facility] Systolic blood pressure 2022-07-04 19:29:00 134 mm[Hg] [facility] Diastolic blood pressure 2022-07-04 19:29:00 89 mm[Hg] [facility] Heart rate 2022-07-04 19:29:00 103 /min [facility] Body temperature 2022-07-04 19:29:00 36.78 Lizette [facility] Respiratory rate 2022-07-04 19:29:00 16 /min [facility] Body height 2022-07-04 19:29:00 144.8 cm [facility] Body weight 2022-07-04 19:29:00 35.199 [facility] BMI 2022-07-04 19:29:00 16.79 kg/m2 [facility] Systolic blood pressure 2022-02-20 19:42:00 108 mm[Hg] [facility] Diastolic blood pressure 2022-02-20 19:42:00 68 mm[Hg] [facility] Heart rate 2022-02-20 19:42:00 106 /min [facility] Body temperature 2022-02-20 19:42:00 37.06 Lizette [facility] Respiratory rate 2022-02-20 19:42:00 16 /min [facility] Body height 2022-02-20 19:42:00 144.8 cm [facility] Body weight 2022-02-20 19:42:00 36.515 [facility] BMI 2022-02-20 19:42:00 17.42 kg/m2 [facility] Oxygen saturation in Arterial blood by Pulse oximetry 2022-02-20 19:42:00 98 /min [facility] Oxygen saturation by Pulse oximetry 2021-11-19 17:20:00 99 /min [facility] Oxygen saturation by Pulse oximetry 2021-11-19 14:48:00 99 /min [facility] Height 2021-11-19 14:48:00 149.807493 cm [facility] Weight 2021-11-19 14:48:00 39.991370 kg [facility] BMI (Body Mass Index) 2021-11-19 14:48:00 17.8 kg/m2 [facility] Oxygen saturation by Pulse oximetry 2021-05-25 13:02:00 100 /min [facility] BP Diastolic 2021-05-25 13:02:00 65 mm[Hg] [facility] Oxygen saturation by Pulse oximetry 2021-05-25 12:57:00 100 /min [facility] BP Diastolic 2021-05-25 12:57:00 68 mm[Hg] [facility] Oxygen saturation by Pulse oximetry 2021-05-25 10:07:00 97 /min [facility] BP Diastolic 2021-05-25 10:07:00 67 mm[Hg] [facility] Oxygen saturation by Pulse oximetry 2021-05-25 09:18:00 97 /min [facility] Oxygen saturation by Pulse oximetry 2021-05-25 05:00:00 97 /min [facility] BP Diastolic 2021-05-25 05:00:00 67 mm[Hg] [facility] Oxygen saturation by Pulse oximetry 2021-05-25 01:00:00 99 /min [facility] BP Diastolic 2021-05-25 01:00:00 85 mm[Hg] [facility] Oxygen saturation by Pulse oximetry 2021-05-24 20:24:00 99 /min [facility] BP Diastolic 2021-05-24 20:24:00 78 mm[Hg] [facility] Oxygen saturation by Pulse oximetry 2021-05-24 20:20:00 97 /min [facility] BP Diastolic 2021-05-24 20:20:00 78 mm[Hg] [facility] Oxygen saturation by Pulse oximetry 2021-05-24 20:17:00 97 /min [facility] Oxygen saturation by Pulse oximetry 2021-05-24 19:17:00 100 /min [facility] Oxygen saturation by Pulse oximetry 2021-05-24 17:49:00 99 /min [facility] Oxygen saturation by Pulse oximetry 2021-05-24 17:20:00 100 /min [facility] Oxygen saturation by Pulse oximetry 2021-05-25 12:02:00 100 /min [facility] BP Diastolic 2021-05-25 12:02:00 65 mm[Hg] [facility] Oxygen saturation by Pulse oximetry 2021-05-25 11:57:00 100 /min [facility] BP Diastolic 2021-05-25 11:57:00 68 mm[Hg] [facility] Oxygen saturation by Pulse oximetry 2021-05-25 09:07:00 97 /min [facility] BP Diastolic 2021-05-25 09:07:00 67 mm[Hg] [facility] Oxygen saturation by Pulse oximetry 2021-05-25 08:18:00 97 /min [facility] Oxygen saturation by Pulse oximetry 2021-05-25 04:00:00 97 /min [facility] BP Diastolic 2021-05-25 04:00:00 67 mm[Hg] [facility] Oxygen saturation by Pulse oximetry 2021-05-25 00:00:00 99 /min [facility] BP Diastolic 2021-05-25 00:00:00 85 mm[Hg] [facility] Oxygen saturation by Pulse oximetry 2021-05-24 19:24:00 99 /min [facility] BP Diastolic 2021-05-24 19:24:00 78 mm[Hg] [facility] Oxygen saturation by Pulse oximetry 2021-05-24 19:20:00 97 /min [facility] BP Diastolic 2021-05-24 19:20:00 78 mm[Hg] [facility] Weight 2021-05-24 19:20:00 39.544808 kg [facility] BMI (Body Mass Index) 2021-05-24 19:20:00 17.8 kg/m2 [facility] Oxygen saturation by Pulse oximetry 2021-05-24 19:17:00 97 /min [facility] Oxygen saturation by Pulse oximetry 2021-05-24 18:17:00 100 /min [facility] Oxygen saturation by Pulse oximetry 2021-05-24 16:49:00 99 /min [facility] Oxygen saturation by Pulse oximetry 2021-05-24 16:20:00 100 /min [facility] Oxygen saturation by Pulse oximetry 2020-10-20 19:13:00 99 /min [facility] Systolic blood pressure 2020-10-17 15:34:00 133 mm[Hg] [facility] Diastolic blood pressure 2020-10-17 15:34:00 85 mm[Hg] [facility] Heart rate 2020-10-17 15:34:00 71 /min [facility] Body temperature 2020-10-17 15:34:00 36.78 Lizette [facility] Respiratory rate 2020-10-17 15:34:00 16 /min [facility] Body height 2020-10-17 15:34:00 144.8 cm [facility] Body weight 2020-10-17 15:34:00 49.442 [facility] BMI 2020-10-17 15:34:00 23.59 kg/m2 [facility] Systolic blood pressure 2020-10-17 15:34:00 133 mm[Hg] [facility] Diastolic blood pressure 2020-10-17 15:34:00 85 mm[Hg] [facility] Heart rate 2020-10-17 15:34:00 71 /min [facility] Body temperature 2020-10-17 15:34:00 36.78 Lizette [facility] Respiratory rate 2020-10-17 15:34:00 16 /min [facility] Body height 2020-10-17 15:34:00 144.8 cm [facility] Body weight 2020-10-17 15:34:00 49.442 [facility] BMI 2020-10-17 15:34:00 23.59 kg/m2 [facility] Oxygen saturation by Pulse oximetry 2020-10-20 19:13:00 99 /min [facility] Body Temperature 2019-08-27 12:00:00 96.6 [degF] [facility] Weight 2019-08-27 06:28:00 141.40 [lb_av] [facility] BMI (Body Mass Index) 2019-08-27 06:28:00 28.6 kg/m2 [facility] Weight 2013-10-25 19:00:00 [facility] Height 2013-10-25 19:00:00 [facility] [place] Temperature Oral (F) 2013-10-25 19:00:00 98.6 F [facility] Heart Rate 2013-10-25 19:00:00 [facility] Diastolic (mm Hg) 2013-10-25 19:00:00 [facility] Systolic (mm Hg) 2013-10-25 19:00:00 [facility] Weight 2013-10-01 14:15:00 [facility] Height 2013-10-01 14:15:00 [facility] Temperature Oral (F) 2013-10-01 14:15:00 98.6 F [facility] Heart Rate 2013-10-01 14:15:00 [facility] Diastolic (mm Hg) 2013-10-01 14:15:00 [facility] Systolic (mm Hg) 2013-10-01 14:15:00 [facility] Weight 2013-09-22 18:00:00 [facility] Height 2013-09-22 18:00:00 [facility] Temperature Oral (F) 2013-09-22 18:00:00 98.4 F [facility] Heart Rate 2013-09-22 18:00:00 [facility] Diastolic (mm Hg) 2013-09-22 18:00:00 [facility] Systolic (mm Hg) 2013-09-22 18:00:00 [facility] Weight 2012-01-12 16:23:00 [facility] Height 2012-01-12 16:23:00 149.86 cm [facility] Procedures Procedure Date / Time Performed Performing Clinician Source Magnetic resonance imaging of brain without contrast 2024-03-03 00:00:00 [facility] X-ray of chest, two views 2024-03-01 14:03:00 [facility] Hysterectomy 1977[birth year]28 00:00:00 [facility] Operation on Ne[facility] Back / Spine [facility] Append[facility] Encounters Start Date/Time End Date/Time Encounter Type Admission Type Attending Clinicians Care Facility Care Department Encounter ID Source 2024-03-01 15:23:00 Inpatient [facility] [id number] [facility] 2022-10-31 08:53:19 Outpatient [facility] [id number] [facility] 2022-10-01 06:53:54 Outpatient [facility] [id number] [facility] 2022-09-30 08:55:12 Outpatient [facility] [id number] [facility] 2022-08-08 12:40:33 Outpatient [facility] [id number] [facility] 2022-08-07 08:38:43 Outpatient [facility] [id number] [facility] 2022-08-02 15:51:24 Outpatient [facility] [id number] [facility] 2022-08-01 12:15:50 Outpatient [facility] [id number] [facility] 2022-07-04 05:16:35 Outpatient [facility] [id number] [facility] 2022-07-03 10:05:26 Outpatient [facility] [id number] [facility] 2022-02-22 08:30:27 Outpatient [facility] [id number] [facility] 2022-02-20 10:54:01 Outpatient [facility] [id number] [facility] 2021-05-29 00:03:00 Inpatient Go Regan [facility] [id number] [facility] 2021-05-01 09:00:40 Outpatient Go Snow [facility] [id number] [facility] 2021-01-04 12:27:47 Outpatient JANICE BREAUX [facility] [id number] [facility] 2020-11-21 10:36:52 Outpatient ISABELL EVANS [facility] [id number] [facility] 2020-11-07 13:41:11 Outpatient DAILY MENG [facility] [id number] [facility] 2020-11-07 13:39:52 Outpatient ISABELL EVANS [facility] [id number] [facility] 2020-10-20 18:27:00 Inpatient [facility] [id number] [facility] 2020-10-16 09:55:29 Outpatient LILLY ZARATE [facility] [id number] [facility] 2020-10-02 13:11:14 Outpatient LILLY ZARATE [facility] [id number] [facility] 2020-09-02 03:57:11 Outpatient LILLY ZARATE [facility] [id number] [facility] 2020-04-26 18:47:00 Inpatient [facility] [id number] [facility] 2020-02-03 19:54:00 Inpatient [facility] [id number] [facility] 2019-11-23 10:52:00 Inpatient [facility] [id number] [facility] 2019-11-19 16:22:00 Inpatient [facility] [id number] [facility] 2024-08-17 00:00:00 2024-08-17 00:00:00 Priscilla Gross, SHAKE LOADER: [address], [address], [place] [address] , Ph. [facility] - [email or web address]_Jennifer Adair* [id number] [facility] 2024-04-02 05:12:00 2024-04-02 05:12:00 Outpatient Jamey Chacko [facility] ENDO [id number] [facility] 2024-03-03 20:03:00 2024-03-04 19:56:00 Discharged Inpatient 1 MAURICIO MONTOYA [facility] [id number] [facility] 2024-03-03 19:03:00 2024-03-04 18:56:00 Inpatient [facility] [id number] [facility] 2023-10-28 00:00:00 2023-10-28 00:00:00 Outpatient [facility] [id number] [facility] 2023-10-23 07:49:00 2023-10-23 07:49:00 Outpatient JUNE Grey Leeroy [facility] [id number] [facility] 2023-10-20 00:00:00 2023-10-20 00:00:00 Outpatient [facility] [id number] [facility] 2023-08-12 19:45:00 2023-08-12 23:38:00 Departed Emergency Room 1 RAMESH LEONARDO [facility] [id number] [facility] 2023-08-12 18:45:00 2023-08-12 22:38:00 Emergency [facility] [id number] [facility] 2023-08-09 00:54:00 2023-08-10 17:02:00 Discharged Inpatient (obs) 1 KUN NOVAK [facility] [id number] [facility] 2023-08-08 23:54:00 2023-08-10 16:02:00 Inpatient [facility] [id number] [facility] 2023-04-29 08:00:00 2023-04-29 08:00:00 Outpatient LILLY ZARATE [facility] [id number] [facility] 2023-04-07 13:45:00 2023-04-07 13:45:00 Outpatient LILLY ZARATE [facility] [id number] [facility] 2023-03-17 00:00:00 2023-03-17 00:00:00 [facility] [id number] 2023-03-11 08:30:00 2023-03-11 09:18:29 Office Visit Lilly Zarate [facility] 1.2.840.114 350.1.13.58 9.2.7.2.686 [id number] [facility] 2023-01-06 15:30:00 2023-01-06 15:30:00 Outpatient LILLY ZARATE [facility] [id number] [facility] 2022-11-13 08:30:00 2022-11-13 08:30:00 Outpatient LILLY ZARATE [facility] [id number] [facility] 2022-09-30 11:00:00 2022-09-30 11:45:27 Office Visit Lilly Zarate [facility] 1.2.840.114 350.1.13.58 9.2.7.2.686 [id number] [facility] 2022-08-27 10:30:00 2022-08-27 10:56:33 Office Visit Lilly Zarate [facility] 1.2.840.114 350.1.13.58 9.2.7.2.686 [id number] [facility] 2022-08-15 00:00:00 2022-08-15 00:00:00 Patient Outreach Audelia Guerrero Shannon [facility] 1.2.840.114 350.1.13.58 9.2.7.2.686 [id number] [facility] 2022-08-13 08:30:00 2022-08-13 10:16:58 Office Visit Lilly Zarate [facility] 1.2.840.114 350.1.13.58 9.2.7.2.686 [id number] [facility] 2022-08-07 00:00:00 2022-08-07 00:00:00 Patient Outreach Audelia Guerrero Shannon [facility] 1.2.840.114 350.1.13.58 9.2.7.2.686 [id number] [facility] 2022-08-06 08:00:00 2022-08-06 08:00:00 Outpatient LILLY ZARATE [facility] [id number] [facility] 2022-08-06 07:35:00 2022-08-06 07:35:00 Outpatient [facility] [id number] [facility] 2022-08-02 11:30:00 2022-08-02 11:59:05 Office Visit LILLY ZARATE [facility] 1.2.840.114 350.1.13.58 9.2.7.2.686 [id number] [facility] 2022-07-30 18:16:00 2022-07-30 22:21:00 Emergency EM Virgilio Earnest [facility] [id number] [facility] 2022-07-30 00:00:00 2022-07-30 00:00:00 Patient Outreach Audelia Guerrero Shannon [facility] 1.2.840.114 350.1.13.58 9.2.7.2.686 [id number] [facility] 2022-07-29 18:48:00 2022-07-29 21:00:00 Departed Emergency Room [facility] [id number] [facility] 2022-07-29 17:48:00 2022-07-29 20:00:00 Emergency [facility] [id number] [facility] 2022-07-26 03:47:00 2022-07-26 19:27:00 Discharged Inpatient (obs) 1 MAURICIO MONTOYA [facility] [id number] [facility] 2022-07-26 02:47:00 2022-07-26 18:27:00 Inpatient [facility] [id number] [facility] 2022-07-25 21:48:00 2022-07-25 21:48:00 Emergency [facility] [id number] [facility] 2022-07-16 07:48:00 2022-07-16 07:48:00 Registered Clinic 3 ALOK FLORES [facility] [id number] [facility] 2022-07-16 06:48:00 2022-07-16 06:48:00 Outpatient [facility] [id number] [facility] 2022-07-12 08:00:00 2022-07-12 08:00:00 Outpatient [facility] [id number] [facility] 2022-07-04 13:45:00 2022-07-04 13:56:17 Office Visit Lilly Zarate [facility] 1.2.840.114 350.1.13.58 9.2.7.2.686 [id number] [facility] 2022-04-03 15:15:00 2022-04-03 15:15:00 Outpatient LILLY ZARATE [facility] [id number] [facility] 2022-04-01 13:30:00 2022-04-01 13:30:00 Outpatient ISABELL EVANS [facility] [id number] [facility] 2022-03-12 15:45:00 2022-03-12 15:45:00 Outpatient LILLY ZARATE [facility] [id number] [facility] 2022-03-10 17:03:00 2022-03-10 18:44:00 Emergency EM Kenya Steve [facility] [id number] [facility] 2022-02-25 00:00:00 2022-02-25 00:00:00 Patient Outreach Gene Spencer Johnathan [facility] 1.2.840.114 350.1.13.58 9.2.7.2.686 [id number] [facility] 2022-02-20 14:15:00 2022-02-20 15:14:15 Office Visit Lilly Zarate [facility] 1.2.840.114 350.1.13.58 9.2.7.2.686 [id number] [facility] 2022-01-01 14:16:00 2022-01-02 08:55:00 Emergency EM Pranay Cheung [facility] [id number] [facility] 2021-12-12 09:59:00 2021-12-14 11:36:00 Inpatient EM Kun Novak [facility] [id number] [facility] 2021-11-19 14:49:00 2021-11-19 19:15:00 Outpatient 1 JO-ANN SWEENEY [facility] [id number] [facility] 2021-11-19 14:49:00 2021-11-19 19:15:00 Departed Emergency Room [facility] [id number] [facility] 2021-11-19 13:49:00 2021-11-19 18:15:00 Emergency [facility] [id number] [facility] 2021-05-01 08:18:00 2021-05-28 00:00:00 Outpatient EL Gwendolyn Go [facility] [id number] [facility] 2021-05-24 19:02:00 2021-05-25 14:39:00 Discharged Inpatient (obs) [facility] [id number] [facility] 2021-05-24 18:02:00 2021-05-25 13:39:00 Inpatient [facility] [id number] [facility] 2021-05-24 18:02:00 2021-05-25 13:39:00 Outpatient Jayce Hurley [facility] [id number] [facility] 2021-03-28 23:27:00 2021-03-29 01:10:00 Emergency EM Luis A Mcarthur [facility] [id number] [facility] 2021-03-28 23:27:00 2021-03-29 01:10:00 Emergency EM Luis A Mcarthur [facility] [id number] [facility] 2021-02-16 00:00:00 2021-02-16 00:00:00 Orders Only Daily Zazueta Mary [facility] 1.2.840.114 350.1.13.58 9.2.7.2.686 [id number] [facility] 2021-01-08 16:52:00 2021-01-08 17:56:00 Emergency EM Joseph Schwarz [facility] [id number] [facility] 2021-01-08 00:00:00 2021-01-08 00:00:00 Telephone Lilly Zarate [facility] 1.2.840.114 350.1.13.58 9.2.7.2.686 [id number] 2021-01-08 00:00:00 2021-01-08 00:00:00 Telephone Lilly Zarate [facility] 1.2.840.114 350.1.13.58 9.2.7.2.686 [id number] [facility] 2021-01-08 00:00:00 2021-01-08 00:00:00 Telephone Lilly Zarate [facility] 1.2.840.114 350.1.13.58 9.2.7.2.686 [id number] [facility] 2021-01-04 00:00:00 2021-01-04 00:00:00 Abstract Janice Breaux [facility] 1.2.840.114 350.1.13.58 9.2.7.2.686 [id number] 2021-01-04 00:00:00 2021-01-04 00:00:00 Abstract Janice Breaux [facility] 1.2.840.114 350.1.13.58 9.2.7.2.686 [id number] [facility] 2020-12-28 00:00:00 2020-12-28 00:00:00 Lilly Kendrick [facility] 1.2.840.114 350.1.13.58 9.2.7.2.686 [id number] 2020-12-28 00:00:00 2020-12-28 00:00:00 Lilly Kendrick [facility] 1.2.840.114 350.1.13.58 9.2.7.2.686 [id number] [facility] 2020-12-07 00:00:00 2020-12-07 00:00:00 Orders Only Daily Zazueta [facility] 1.2.840.114 350.1.13.58 9.2.7.2.686 [id number] 2020-12-07 00:00:00 2020-12-07 00:00:00 Orders Only Daily Zazueta Mary [facility] 1.2.840.114 350.1.13.58 9.2.7.2.686 [id number] [facility] 2020-12-01 00:00:00 2020-12-01 00:00:00 Telephone Daily Zazueta [facility] 1.2.840.114 350.1.13.58 9.2.7.2.686 [id number] 2020-12-01 00:00:00 2020-12-01 00:00:00 Telephone Daily Zazueta Mary [facility] 1.2.840.114 350.1.13.58 9.2.7.2.686 [id number] [facility] 2020-11-27 00:00:00 2020-11-27 00:00:00 Anai Bird [facility] 1.2.840.114 350.1.13.58 9.2.7.2.686 [id number] 2020-11-27 00:00:00 2020-11-27 00:00:00 Mauro Anai Zheng Kaitlynn [facility] 1.2.840.114 350.1.13.58 9.2.7.2.686 [id number] [facility] 2020-11-16 00:00:00 2020-11-16 00:00:00 Anai Bird [facility] 1.2.840.114 350.1.13.58 9.2.7.2.686 [id number] 2020-11-16 00:00:00 2020-11-16 00:00:00 Anai Bird Kaitlynn [facility] 1.2.840.114 350.1.13.58 9.2.7.2.686 [id number] [facility] 2020-10-23 00:00:00 2020-10-23 00:00:00 Orders Only Daily Zazueta [facility] 1.2.840.114 350.1.13.58 9.2.7.2.686 [id number] 2020-10-23 00:00:00 2020-10-23 00:00:00 Orders Only Daily Zazueta Mary [facility] 1.2.840.114 [id number] [id number] [facility] 2020-10-20 19:15:00 2020-10-20 19:20:00 Departed Emergency Room [facility] [id number] [facility] 2020-10-20 19:15:00 2020-10-20 19:20:00 Departed Emergency Room [facility] [id number] [facility] 2020-10-20 00:00:00 2020-10-20 00:00:00 Telephone Daily Zazueta [facility] 1.2.840.114 [id number] [id number] 2020-10-20 00:00:00 2020-10-20 00:00:00 Telephone Daily [facility] 1.2.840.114 350.1.13.58 9.2.7.2.686 [id number] 1 [id number] [facility] 2020-10-18 00:00:00 2020-10-18 00:00:00 Telephone Triny Avile[facility] 1.2.840.114 350.1.13.58 9.2.7.2.686 [id number] 7 [id number] 2020-10-18 00:00:00 2020-10-18 00:00:00 Telephone Triny Avilez [facility] 1.2.840.114 350.1.13.58 9.2.7.2.686 [id number] 7 [id number] [facility] 2020-10-17 09:56:52 2020-10-17 11:11:17 Office Visit Lilly Zarate [facility] 1.2.840.114 350.1.13.58 9.2.7.2.686 [id number] 7 [id number] 2020-10-17 09:56:52 2020-10-17 11:11:17 Office Visit Lilly Zarate [facility] 1.2.840.114 350.1.13.58 9.2.7.2.686 [id number] [facility] 2020-10-17 00:00:00 2020-10-17 00:00:00 EXT [facility] OP Lilly Zarate EXT [facility] LOCATION 1.2.840.114 350.1.13.58 9.2.7.2.686 [id number] [facility] 2020-10-17 00:00:00 2020-10-17 00:00:00 EXT [facility] OP Lilly Zarate EXT [facility] LOCATION 1.2.840.114 350.1.13.58 9.2.7.2.686 [id number] [facility] 2019-11-19 17:47:00 2019-11-19 17:47:00 Outpatient Jayme Kimball [facility] [id number] [facility] 2019-09-24 10:32:00 2019-09-24 10:32:00 Outpatient [facility] [id number] [facility] 2019-08-25 15:40:00 2019-08-27 13:36:00 Discharged Inpatient (obs) 1 [facility] [id number] [facility] 2019-08-25 12:43:00 2019-08-25 12:43:00 Emergency [facility] [id number] [facility] 2019-07-14 16:25:00 2019-07-16 10:50:00 Discharged Inpatient (obs) 1 [facility] [id number] [facility] 2019-07-14 15:11:00 2019-07-14 15:11:00 Emergency [facility] [id number] [facility] 2018-07-16 11:44:00 2018-07-16 15:48:00 Departed Emergency Room [facility] [id number] [facility] 2017-11-22 15:48:00 2017-11-22 20:25:00 Departed Emergency Room 1 LEROY CEDEÑO [facility] [id number] [facility] 2012-01-12 11:06:00 2012-01-12 13:50:00 Emergency [facility] [id number] Sara Mendez Results Test Description Test Time Test Comments Results Result Co mments Source BASIC METABOLIC [id number] 07:55:00* Test Item Value Reference Range Interpretation Comme nts SODIUM (test code = NA) 148 mEq/L 134-147 H POTASSIUM (test code = K) 3.6 mEq/L 3.4-5.0 N CHLORIDE (test code = CL) 115 mEq/L 100-108 H CARBON DIOXIDE (test code = CO2) 24 mEq/l 21-33 N ANION GAP (test code = GAP) 12 0-20 N GLUCOSE (test code = GLU) 104 mg/dL 77-141 N BLOOD UREA NITROGEN (test code = BUN) 17 mg/dL 7-25 GLOMERULAR FILTRATION RATE (test code = GFR) 92.4 70-80 H The Glomerular Filtration Rate is a calculated parameterbased on serum Creatinine, patient age and sex. GFR valuesless than 60 mL/min/1.73 square meters are indicative ofChronic Kidney Disease. Values less than 15 mL/min/1.73square meters indicate Kidney failure. The calculation forGFR is based on the CKD-EPI (202) calculation. This formulais race indifferent and is the recommended formula for GFRby the National Kidney Foundation for Adults.The GFR will not calculate if the sex is unknown or if thepatient's age is <18 years. CREATININE (test code = CREAT) 0.7 mg/dL 0.6-1.3 N CALCIUM (test code = CA) 9.7 mg/dL 8.0-10.5 N BASIC METABOLIC [id number] 09:38:00* Test Item Value Reference Range Interpretation Comme nts SODIUM (test code = NA) 143 mEq/L 134-147 N POTASSIUM (test code = K) 4.3 mEq/L 3.4-5.0 N CHLORIDE (test code = CL) 111 mEq/L 100-108 H CARBON DIOXIDE (test code = CO2) 27 mEq/l 21-33 N ANION GAP (test code = GAP) 9 0-20 N GLUCOSE (test code = GLU) 93 mg/dL 77-141 N BLOOD UREA NITROGEN (test code = BUN) 10 mg/dL 7-25 N GLOMERULAR FILTRATION RATE (test code = GFR) 95.9 70-80 H The Glomerular Filtration Rate is a calculated parameterbased on serum Creatinine, patient age and sex. GFR valuesless than 60 mL/min/1.73 square meters are indicative ofChronic Kidney Disease. Values less than 15 mL/min/1.73square meters indicate Kidney failure. The calculation forGFR is based on the CKD-EPI (202) calculation. This formulais race indifferent and is the recommended formula for GFRby the National Kidney Foundation for Adults.The GFR will not calculate if the sex is unknown or if thepatient's age is <18 years. CREATININE (test code = CREAT) 0.6 mg/dL 0.6-1.3 N CALCIUM (test code = CA) 9.7 mg/dL 8.0-10.5 N CBC W/AUTO [id number] 09:16:00* Test Item Value Reference Range Interpretation Comme nts WHITE BLOOD CELL (test code = WBC) 6.4 x10 3/uL 4.5-11.0 N RED BLOOD CELL (test code = RBC) 3.92 x10 6/uL 3.54-5.02 N HEMOGLOBIN (test code = HGB) 11.9 g/dL 11.0-15.0 N HEMATOCRIT (test code = HCT) 37.2 % 33.0-45.0 N MEAN CELL VOLUME (test code = MCV) 94.9 fL 81.0-99.0 N MEAN CELL HGB (test code = MCH) 30.4 pg 27.0-33.0 N MEAN CELL HGB CONCETRATION (test code = MCHC) 32.0 g/dL 33.0-37.0 L RED CELL DISTRIBUTION WIDTH CV (test code = RDW) 13.3 % 11.5-14.5 N RED CELL DISTRIBUTION WIDTH SD (test code = RDW-SD) 46.2 fL 37.0-54.0 N PLATELET COUNT (test code = PLT) 227 x10 3/uL 150-400 N MEAN PLATELET VOLUME (test c ode = MPV) 10.1 fL 7.0-9.0 H NEUTROPHIL % (test code = NT%) 63.7 % 56.0-77.0 N IMMATURE GRANULOCYTE % (test code = IG%) 0.3 % 0.0-2.0 N LYMPHOCYTE % (test code = LY%) 27.2 % 14.0-32.0 N MONOCYTE % (test code = MO%) 6.7 % 4.8-9.0 N EOSINOPHIL % (test code = EO%) 1.3 % 0.3-3.7 N BASOPHIL % (test code = BA%) 0.8 % 0.0-2.0 N NUCLEATED RBC % (test code = NRBC%) 0.0 % 0-0 N NEUTROPHIL # (test code = NT#) 4.08 x10 3/uL 2.0-7.6 N IMMATURE GRANULOCYTE # (test code = IG#) 0.02 x10 3/uL 0.00-0.03 N LYMPHOCYTE # (test code = LY#) 1.74 x10 3/uL 1.0-3.8 N MONOCYTE # (test code = MO#) 0.43 x10 3/uL 0.1-0.8 N EOSINOPHIL # (test code = EO#) 0.08 x10 3/uL 0.0-0.2 N BASOPHIL # (test code = BA#) 0.05 x10 3/uL 0.0-0.2 N NUCLEATED RBC # (test code = NRBC#) 0.00 x10 3/uL 0.0-0.1 N MRI BRAIN [id number] 13:54:00 [facility] : 1955 Sex: F [address] ient Name: HAYLEY KATZ MR #: [id number] : 1955 Age/Sex: 69/F Req#: [id number] Adm Physician: MAURICIO MONTOYA MD Ordered by: MAURICIO MONTOYA MD Report #: [id number] Location: MED/SURG3 Room/Bed: 298-1 Report: Diagnostic Imaging Report Status: Signed ---- Procedure: [id number] MRI/MRI BRAIN WO Exam Date: 03/03/24 Exam Time: 1054 MRI Brain without contrast Clinical History: Syncope Technique: MRI of the brain utilizing axial T1, T2, FLAIR, GRE, DWI; sagittal T2 and coronal FLAIR sequences. Comparisons: Head CT 08/08/2023 Findings: There is no evidence of acute infarct or hemorrhage. Left anterior frontal and left anterior temporal lobe encephalomalacia is again seen. There is mild periventricular and subcortical white matter T2 hyperintensity, which is nonspecific but compatible with chronic microvascular ischemic change. There is mild generalized parenchymal volume loss without hydrocephalus, midline shift, or apparent mass effect. There are no extra-axial fluid collections. The craniocervical junction is preserved. The major intracranial flow-voids appear patent. IMPRESSION: No evidence of acute infarct, hemorrhage, or hydrocephalus. Left anterior frontal and temporal lobe encephalomalacia again seen. Signed by: Ke Jeffers on 03/03/2024 1:54 PM Dicta yennifer By: KE JEFFERS MD 1356 Transcribed By: NANCY on 03/03/24 1354 COPY TO: MAURICIO MONTOYAerum or plasma sodium measurement (moles/volume)2024-03-03 07:40:00* Test Item Value Reference Range Interpretation Comme [facility] Sodium Level (test code = 2951-2) 141 136-145 [facility] potassium [facility] (moles/volume)2024-03-03 07:40:00* Test Item Value Reference Range Interpretation Comme [facility] Potassium Level (test code = 2823-3) 3.9 3.5-5.1 [facility] chloride measurement (moles/volume)2024-03-03 07:40:00* Test Item Value Reference Range Interpretation Comme [facility] Chloride Level (test code = 2075-0) 111 98-107 [facility] carbon dioxide, total measurement (moles/volume)2024-03-03 07:40:00* Test Item Value Reference Range Interpretation Comme [facility] Carbon Dioxide Level (test c ode = 2027-9) 23 22-29 [facility] anion [id number] 07:40:00 * Test Item Value Reference Range Interpretation Comme [facility] Anion Gap (test code = 17168-1) 10.9 8-16 [facility] urea nitrogen measurement (mass/volume)2024-03-03 07:40:00* Test Item Value Reference Range Interpretation Comme nts Blood Urea Nitrogen (test co de = 3094-0) 18 7-26 [facility] creatinine measurement (mass/volume)2024-03-03 07:40:00* Test Item Value Reference Range Interpretation Comme nts Creatinine (test code = 2160-0) 0.73 0.57-1.11 [facility] urea nitrogen/creatinine mass [id number] 07:40:00* Test Item Value Reference Range Interpretation Comme nts BUN/Creatinine Ratio (test c ode = 3097-3) 25 6-25 [facility] ClinicsGlomerular filtration rate/1.73 sq M.predicted [Volume Rate/Area] in Serum, Plasma or Blood by Creatinine-based formula (CKD-EPI 2020)2024-03-03 07:40:00* Test Item Value Reference Range Interpretation Comme [facility] Estimated GFR (CKD-EPI) (gold t code = 83580-1) 88 >=60 [facility] ClinicsGlucose mass per [id number] 07:40:00* Test Item Value Reference Range Interpretation Comme nts Glucose Level (test code = 52150-1) 96 74-118 [facility] calcium measurement (mass/volume)2024-03-03 07:40:00* Test Item Value Reference Range Interpretation Comme nts Calcium Level (test code = 63396-3) 8.3 8.4-10.2 [facility] plasma magnesium measurement (mass/volume)2024-03-03 07:40:00* Test Item Value Reference Range Interpretation Comme nts Magnesium Level (test code = 02845-1) 2.1 1.3-2.1 [facility] total bilirubin measurement (mass/volume)2024-03-03 07:40:00* Test Item Value Reference Range Interpretation Comme nts Total Bilirubin (test code = 1975-2) 0.2 0.2-1.2 [facility] ClinicsFluoroscopic procedure less than one hour [id number] 07:40:00* Test Item Value Reference Range Interpretation Comme nts Aspartate Amino Transf (AST/ SGOT) (test code = Aspartate Amino Transf (AST/SGOT)) 22 5-34 [facility]er[facility] plasma alanine aminotransferase measurement (enzymatic activity/volume)2024-03-03 07:40:00* Test Item Value Reference Range Interpretation Comme [facility] Alanine Aminotransferase (AL T/SGPT) (test code = 1742-6) 12 0-55 [facility] protein measurement (mass/volume)2024-03-03 07:40:00* Test Item Value Reference Range Interpretation Comme [facility] Total Protein (test code = 2885-2) 5.6 6.5-8.1 [facility] plasma albumin measurement (mass/volume)2024-03-03 07:40:00* Test Item Value Reference Range Interpretation Comme [facility] Albumin (test code = 1751-7) 2.9 3.5-5.0 [facility] ClinicsPlasma globulin measurement (mass/volume) 2024-03-03 07:40:00* Test Item Value Reference Range Interpretation Comme [facility] Globulin (test code = 74376-8) 2.7 2.3-3.5 [facility] albumin/globulin mass ratio 2024-03-03 07:40:00* Test Item Value Reference Range Interpretation Comme [facility] Albumin/Globulin Ratio (test code = 1759-0) 1.1 0.8-2.0 [facility] plasma alkaline phosphatase measurement (enzymatic activity/volume)2024-03-03 07:40:00* Test Item Value Reference Range Interpretation Comme [facility] Alkaline Phosphatase (test c ode = 6768-6) 83 40-150 [facility]er[facility] plasma creatine kinase measurement (enzymatic activity/volume)2024-03-02 14:39:00* Test Item Value Reference Range Interpretation Comme [facility] Creatine Kinase (test code = 2157-6) 49 29-168 [facility] ClinicsTroponin I measurement by highly sensitive enzyme sqoqouchlrk2089-87-60 14:39:00* Test Item Value Reference Range Interpretation Comme nts Troponin I (test code = 29680-3) 0.003 0-0.300 [facility] # [id number] 07:35:00* Test Item Value Reference Range Interpretation Comme [facility] White Blood Count (test code = 04764-9) 5.75 4.8-10. 8 [facility] ClinicsBlood erythrocytes automated count (number/volume)2024-03-02 07:35:00* Test Item Value Reference Range Interpretation Comme [facility] Red Blood Count (test code = 789-8) 3.60 3.6-5.1 [facility] ClinicsBlood hemoglobin measurement (moles/volume) 2024-03-02 07:35:00* Test Item Value Reference Range Interpretation Comme [facility] Hemoglobin (test code = 44043-3) 11.3 12.0-16.0 [facility] ClinicsAutomated blood hematocrit (volume fraction) 2024-03-02 07:35:00* Test Item Value Reference Range Interpretation Comme [facility] Hematocrit (test code = 4544-3) 35.1 34.2-44.1 [facility] ClinicsAutomated erythrocyte mean corpuscular volume 2024-03-02 07:35:00* Test Item Value Reference Range Interpretation Comme [facility] Mean Corpuscular Volume (gold t code = 787-2) 97.5 81-99 [facility] ClinicsAutomated erythrocyte mean corpuscular hemoglobin (mass per erythrocyte)2024-03-02 07:35:00* Test Item Value Reference Range Interpretation Comme [facility] Mean Corpuscular Hemoglobin (test code = 785-6) 31.4 28-32 [facility] ClinicsAutomated erythrocyte mean corpuscular hemoglobin concentration measurement (mass/volume)2024-03-02 07:35:00* Test Item Value Reference Range Interpretation Comme [facility] Mean Corpuscular Hemoglobin Concent (test code = 786-4) 32.2 31-35 [facility] ClinicsRDW AuiYm-Xck8230-09-05 07:35:00* Test Item Value Reference Range Interpretation Comme [facility] Red Cell Distribution Width (test code = 95461-1) 13.2 11.7-14.4 [facility] ClinicsAutomated blood platelet count (count/volume) 2024-03-02 07:35:00* Test Item Value Reference Range Interpretation Comme [facility] Platelet Count (test code = 777-3) 203 140-360 [facility] ClinicsAutomated blood segmented neutrophil count as percentage of total zvrhofypky0534-29-01 07:35:00* Test Item Value Reference Range Interpretation Comme nts Neutrophils (%) (Auto) (test code = 94568-1) 42.0 38.7-80.0 [facility] ClinicsAutomated blood lymphocyte count as percentage ot total pipmkzzjvk4846-51-29 07:35:00* Test Item Value Reference Range Interpretation Comme nts Lymphocytes (%) (Auto) (test code = 736-9) 43.5 18.0-39.1 [facility] ClinicsAutomated blood monocyte count as percentage of total ezexjjpfme2412-78-28 07:35:00* Test Item Value Reference Range Interpretation Comme nts Monocytes (%) (Auto) (test c ode = 5905-5) 9.6 4.4-11.3 [facility] ClinicsAutomated blood eosinophil count as percentage of total nmbevpypzg0960-94-15 07:35:00* Test Item Value Reference Range Interpretation Comme nts Eosinophils (%) (Auto) (test code = 713-8) 4.2 0.0-6.0 [facility] ClinicsAutomated blood basophil count as percentage of total ptlbdfcnwd8453-57-46 07:35:00* Test Item Value Reference Range Interpretation Comme nts Basophils (%) (Auto) (test c ode = 706-2) 0.5 0.0-1.0 [facility] ClinicsFluoroscopic procedure less than one hour ebhitkjg2289-69-51 07:35:00* Test Item Value Reference Range Interpretation Comme nts IM GRANULOCYTES % (test code = IM GRANULOCYTES %) 0.2 0.0-1.0 Absolute Immature Granulocyt e (auto (test code = Absolute Immature Granulocyte (auto) 0.01 0-0.1 [facility] ClinicsAutomated blood neutrophil aovqn6033-74-45 07:35:00* Test Item Value Reference Range Interpretation Comme nts Neutrophils # (Auto) (test c ode = 751-8) 2.4 2.1-6.9 [facility] ClinicsBlood lymphocytes count (number/volume) 2024-03-02 07:35:00* Test Item Value Reference Range Interpretation Comme nts Lymphocytes # (Auto) (test c ode = 03645-0) 2.5 1.0-3.2 [facility] ClinicsBlood monocytes automated count (number/volume)2024-03-02 07:35:00* Test Item Value Reference Range Interpretation Comme nts Monocytes # (Auto) (test code = 742-7) 0.6 0.2-0.8 [facility] ClinicsAutomated blood eosinophil wlyey4639-16-40 07:35:00* Test Item Value Reference Range Interpretation Comme nts Eosinophils # (Auto) (test c ode = 711-2) 0.2 0.0-0.4 [facility] ClinicsAutomated blood basophil count (count/volume) 2024-03-02 07:35:00* Test Item Value Reference Range Interpretation Comme nts Basophils # (Auto) (test code = 704-7) 0.0 0.0-0.1 [facility] ClinicsUrine color igvcykovaurzx2385-97-39 15:05:00 * Test Item Value Reference Range Interpretation Comme nts Urine Color (test code = 5778-6) YELLOW YELLOW [facility] ClinicsUrine kfqzivj0745-19-38 15:05:00* Test Item Value Reference Range Interpretation Comme nts Urine Clarity (test code = 11680-2) CLEAR CLEAR [facility] Hospitalpecific gravity of Urine by Test strip 2024-03-01 15:05:00* Test Item Value Reference Range Interpretation Comme nts Urine Specific [place] (test code = 5811-5) 1.010 1.010-1.025 [facility] ClinicsUrine pH measurement by automated test strip 2024-03-01 15:05:00* Test Item Value Reference Range Interpretation Comme nts Urine pH (test code = 71231-4) 7 5-7 [facility] ClinicsUrine leukocyte esterase detection by automated test ewffc6529-84-33 15:05:00* Test Item Value Reference Range Interpretation Comme nts Urine Leukocyte Esterase (te st code = 74796-0) NEGATIVE NEGATIVE [facility] ClinicsUrine nitrite detection by automated test pptnj9801-73-96 15:05:00* Test Item Value Reference Range Interpretation Comme nts Urine Nitrite (test code = 15231-1) NEGATIVE NEGATIVE [facility] ClinicsUrine protein detection by automated test qtexi0921-18-16 15:05:00* Test Item Value Reference Range Interpretation Comme nts Urine Protein (test code = 43111-3) NEGATIVE NEGATIVE [facility] ClinicsUrine glucose detection by automated test pbysg7366-11-44 15:05:00* Test Item Value Reference Range Interpretation Comme nts Urine Glucose (UA) (test cod e = 66500-2) NEGATIVE NEGATIVE [facility] ClinicsUrine ketones detection by automated test qasuw9109-09-46 15:05:00* Test Item Value Reference Range Interpretation Comme nts Urine Ketones (test code = 49366-2) NEGATIVE NEGATIVE [facility] ClinicsUrine urobilinogen measurement by test strip (mass/volume)2024-03-01 15:05:00* Test Item Value Reference Range Interpretation Comme nts Urine Urobilinogen (test cod e = 52207-9) 0.2 0.2-1 [facility] ClinicsUrine total bilirubin ayeojddia2540-45-28 15:05:00* Test Item Value Reference Range Interpretation Comme nts Urine Bilirubin (test code = 1977-8) NEGATIVE NEGATIVE [facility] ClinicsUrine erythrocytes yazoncpmm7533-35-69 15:05:00* Test Item Value Reference Range Interpretation Comme nts Urine Blood (test code = 77854-1) NEGATIVE NEGATIVE [facility] ClinicsAutomated urine sediment leukocyte count by microscopy (number/high power field)2024-03-01 15:05:00* Test Item Value Reference Range Interpretation Comme nts Urine WBC (test code = 5821-4) NONE 0-5 [facility] ClinicsErythrocytes detection in urine sediment by light fdknxxwchq8644-13-13 15:05:00* Test Item Value Reference Range Interpretation Comme nts Urine RBC (test code = 97827-9) NONE 0-5 [facility] ClinicsBacteria detection in urine sediment by light hgxhbjefka4456-75-60 15:05:00* Test Item Value Reference Range Interpretation Comme nts Urine Bacteria (test code = 26242-9) RARE NONE [facility] ClinicsEpithelial cells detection in urine sediment by light dedtvwmqda2558-66-91 15:05:00* Test Item Value Reference Range Interpretation Comme nts Urine Epithelial Cells (test code = 40110-3) FEW NONE [facility] ClinicsInfluenza virus A and B antigen identification by uixqlaxdtfjslioczh8926-83-51 14:15:00* Test Item Value Reference Range Interpretation Comme nts Influenza Virus Types A,B An tigen (test code = 57446-4) NEGATIVE NEGATIVE [facility] ClinicsBNP Ocd-kPzu8410-97-04 14:15:00* Test Item Value Reference Range Interpretation Comme nts B-Type Natriuretic Peptide ( test code = 34569-2) 31.0 0-100 [facility] ClinicsRespiratory specimen severe acute respiratory syndrome-related coronavirus antigen detection by tlrhccwpukk4508-63-66 14:15:00 * Test Item Value Reference Range Interpretation Comme nts SARS-CoV-2 Antigen (test cod e = 14831-7) NOT DETECTED NEGATIVE [facility] ClinicsCHEST 2 [id number] 13:48:00 [facility] : 1955 Sex: F [place] [address] Patient Name: HAYLEY KATZ MR #: [id number] : 1955 Age/Sex: 69/F Req #: [id number] Adm Physician: Ordered by: YUNIEL COLEMAN MD Report #: [id number] Location: ER Room/Bed: Report: Diagnostic Imaging Report Status: Signed Procedure: [id number] DX/CHEST 2 VIEWS Exam Date:03/01/24 Exam Time: 1316 EXAMINATION: CHEST 2 VIEWS INDICATION: Chest pain COMPARISON: August 12, 2023 FINDINGS: LINES/TUBES: None LUNGS: The lungs are well inflated. No focal airspace consolidation.PLEURA: No pleural effusion or pneumothorax. MEDIASTINUM: The cardiomediastinal silhouette appears normal in size and shape. BONES/SOFT TISSUES: No acute osseous injury. ABDOMEN: No free air under the diaphragm. IMPRESSION: No acute cardiorespiratory disease. Signed by: Gege Anne on 03/01/2024 1:48 PM Dictated By: GEGE ANNE MD 1205 Transcribed By: Wi-ChiRIBE on 03/01/24 5099 COPY TO: YUNIEL COLEMAN MDNEW MEXICO [facility] HEAD AND [id number] 08:32:00[facility]Name: HAYLEY KATZ : 1955 Sex: F Name: HAYLEY KATZ [facility] : 1955 Age/S: 68 / F [address] [facility] Unit #: [id number] Loc: FUAD [place] [address] Phys: Leeroy Grey APRN Acct: [id number] Dis Date: Status: REG CLI PHONE #: [phone] Exam Date: 10/23/2023819 FAX #: [phone] Reason: R13.10 EXAMS: CPT CODE: [id number] US HEAD AND NECK 68302 HISTORY: Dysphagia. COMPARISON: None available. Location: [facility]. Neck ultrasound: No solid or cystic mass. Lymph node on the left side laterally measured 1.[address] scan with contrast for further evaluation as necessary. IMPRESSION: No solid or cystic mass. Single borderline pathologic lymph node measured 1.3 cm on the left side.Correlate with CT scan as necessary. [id number] Reported and signed by: Reilly Khan M.D. CC: Leeroy Grey APRN Technologist: LEENA MARTINEZ(R),SUDHA Trnscb Date/Time: 10/23/2023 (831) [email or web address] Orig Print D/T: S: 10/23/2023 (0835) Probe: PAGE 1 Signed ReportABDOMEN-1VIEW (KUB) 2023-08-12 21:30:00 [facility] 1955 Sex: F [place] [address] Patient Name: HAYLEY KATZ MR #: [id number] : 1955 Age/Sex: 68/F Req#: [id number] Adm Physician: Ordered by: RAMESH LEONARDO MD Report #: [id number] Location: Room/Bed: Report: Diagnostic Imaging Report Status: Signed Procedure: [id number] DX/ABDOMEN-1VIEW (KUB) Exam Date: 08/12/23 Exam Time: 2019 EXAM/TECHNIQUE: CHEST SINGLE (PORTABLE), ABDOMEN-1VIEW (KUB) INDICATION: CHEST PAIN COMPARISON: 07/25/2022. FINDINGS: Devices/Objects: None. Lungs: No focal consolidation. No pleural effusion. No pneumothorax. Heart/Mediastinum: No cardiomegaly. No interstitial thickening. Osseous: No acute osseous process. No suspicious osseous lesion. Abdomen: No dilatedloops of large or small bowel. There is normal stool burden. IMPRESSION: 1.No acute cardiopulmonaryprocess. 2.Nonspecific bowel gas pattern. Grossly normal stool burden. Signed by: Renzo Nick on08/12/2023 9:30 PM Dictated By: RENZO NICK MD 32 Transcribed By: PSCRIBE on 08/12/232129 COPY TO: RAMESH LEONARDO [facility]ENTERMissy SINGLE (PORTABLE)2023-08-12 21:30:00 [facility] : 1955 Sex: F [facility] [address] [address] Patient Name: HAYLEY KATZ MR #: [id number] : 1955 Age/Sex: 68/F Req #: [id number] Adm Physician: Ordered by: RAMESH LEONARDO MD Report #: [id number] Location: ER Room/Bed: Report: Diagnostic Imaging Report Status: Signed Procedure: [id number] DX/CHEST SINGLE (PORTABLE) Exam Date: 08/12/23 Exam Time: 2019 EXAM/TECHNIQUE: CHEST SINGLE (PORTABLE), ABDOMEN-1VIEW (KUB) INDICATION: CHEST PAIN COMPARISON: 07/25/2022. FINDINGS: Devices/Objects: None. Lungs: No focal consolidation. No pleural effusion. No pneumothorax. Heart/Mediastinum: No cardiomegaly. No interstitial thickening. Osseous: No acute osseous process. No suspicious osseous lesion. Abdomen: No dilated loops of large or small bowel. There is normal stool burden. IMPRESSION: 1.No acute cardiopulmonary process. 2.Nonspecific bowel gas pattern. Grossly normal stool burden. Signed by: Renzo Nick on 08/12/2023 9:30 PM Dictated By: RENZO NICK MD 32 Transcribed By: NANCY on 08/12/232129 COPY TO: [facility] # [id number] 20:47:00* Test Item Value Reference Range Interpretation Comme [facility] White Blood Count (test code = 50443-1) 6.22 4.8-10. 8 [facility] ClinicsBlood erythrocytes automated count (number/volume)2023-08-12 20:47:00* Test Item Value Reference Range Interpretation Comme [facility] Red Blood Count (test code = 789-8) 3.47 3.6-5.1 [facility] ClinicsBlood hemoglobin measurement (moles/volume) 2023-08-12 20:47:00* Test Item Value Reference Range Interpretation Comme [facility] Hemoglobin (test code = 40523-9) 10.2 12.0-16.0 [facility] ClinicsAutomated blood hematocrit (volume fraction) 2023-08-12 20:47:00* Test Item Value Reference Range Interpretation Comme [facility] Hematocrit (test code = 4544-3) 30.1 34.2-44.1 [facility] ClinicsAutomated erythrocyte mean corpuscular volume 2023-08-12 20:47:00* Test Item Value Reference Range Interpretation Comme [facility] Mean Corpuscular Volume (gold t code = 787-2) 86.7 81-99 [facility] ClinicsAutomated erythrocyte mean corpuscular hemoglobin (mass per erythrocyte)2023-08-12 20:47:00* Test Item Value Reference Range Interpretation Comme [facility] Mean Corpuscular Hemoglobin (test code = 785-6) 29.4 28-32 [facility] ClinicsAutomated erythrocyte mean corpuscular hemoglobin concentration measurement (mass/volume)2023-08-12 20:47:00* Test Item Value Reference Range Interpretation Comme [facility] Mean Corpuscular Hemoglobin Concent (test code = 786-4) 33.9 31-35 [facility] ClinicsRDW [id number] 20:47:00* Test Item Value Reference Range Interpretation Comme [facility] Red Cell Distribution Width (test code = 42080-6) 14.9 11.7-14.4 [facility] ClinicsAutomated blood platelet count (count/volume) 2023-08-12 20:47:00* Test Item Value Reference Range Interpretation Comme nts Platelet Count (test code = 777-3) 160 140-360 [facility] ClinicsAutomated blood segmented neutrophil count as percentage of total [id number] 20:47:00* Test Item Value Reference Range Interpretation Comme nts Neutrophils (%) (Auto) (test code = 07284-0) 39.6 38.7-80.0 [facility] ClinicsAutomated blood lymphocyte count as percentage ot total tpokjenklb1965-08-34 20:47:00* Test Item Value Reference Range Interpretation Comme nts Lymphocytes (%) (Auto) (test code = 736-9) 45.8 18.0-39.1 [facility] ClinicsAutomated blood monocyte count as percentage of total qbzcybumsv0527-82-27 20:47:00* Test Item Value Reference Range Interpretation Comme nts Monocytes (%) (Auto) (test c ode = 5905-5) 10.0 4.4-11.3 [facility] ClinicsAutomated blood eosinophil count as percentage of total [id number] 20:47:00* Test Item Value Reference Range Interpretation Comme nts Eosinophils (%) (Auto) (test code = 713-8) 3.4 0.0-6.0 [facility] ClinicsAutomated blood basophil count as percentage of total zzweqhlihw6480-92-98 20:47:00* Test Item Value Reference Range Interpretation Comme nts Basophils (%) (Auto) (test c ode = 706-2) 1.0 0.0-1.0 [facility] ClinicsFluoroscopic procedure less than one hour cskkdifr5748-24-05 20:47:00* Test Item Value Reference Range Interpretation Comme nts IM GRANULOCYTES % (test code = IM GRANULOCYTES %) 0.2 0.0-1.0 [facility] ClinicsAutomated blood neutrophil gpssm0772-98-50 20:47:00* Test Item Value Reference Range Interpretation Comme nts Neutrophils # (Auto) (test c ode = 751-8) 2.5 2.1-6.9 [facility] ClinicsBlood lymphocytes count (number/volume) 2023-08-12 20:47:00* Test Item Value Reference Range Interpretation Comme nts Lymphocytes # (Auto) (test c ode = 57879-6) 2.9 1.0-3.2 [facility] ClinicsBlood monocytes automated count (number/volume)2023-08-12 20:47:00* Test Item Value Reference Range Interpretation Comme nts Monocytes # (Auto) (test code = 742-7) 0.6 0.2-0.8 [facility] ClinicsAutomated blood eosinophil [id number] 20:47:00* Test Item Value Reference Range Interpretation Comme nts Eosinophils # (Auto) (test c ode = 711-2) 0.2 0.0-0.4 [facility] ClinicsAutomated blood basophil count (count/volume) 2023-08-12 20:47:00* Test Item Value Reference Range Interpretation Comme nts Basophils # (Auto) (test code = 704-7) 0.1 0.0-0.1 [facility]er[facility] sodium measurement (moles/volume)2023-08-12 20:47:00* Test Item Value Reference Range Interpretation Comme nts Sodium Level (test code = 2951-2) 139 136-145 [facility]er[facility] plasma potassium measurement (moles/volume)2023-08-12 20:47:00* Test Item Value Reference Range Interpretation Comme nts Potassium Level (test code = 2823-3) 3.8 3.5-5.1 [facility] Hospitalerum or plasma chloride measurement (moles/volume)2023-08-12 20:47:00* Test Item Value Reference Range Interpretation Comme nts Chloride Level (test code = 2075-0) 110 98-107 [facility] Hospitalerum or plasma carbon dioxide, total measurement (moles/volume)2023-08-12 20:47:00* Test Item Value Reference Range Interpretation Comme nts Carbon Dioxide Level (test c ode = 2028-9) 22 - [facility]erum or plasma anion [id number] 20:47:00 * Test Item Value Reference Range Interpretation Comme [facility] Anion Gap (test code = 38838-5) 10.8 8-16 [facility]erum or plasma urea nitrogen measurement (mass/volume)2023-08-12 20:47:00* Test Item Value Reference Range Interpretation Comme nts Blood Urea Nitrogen (test co de = 3094-0) 14 - [facility]erum [facility] plasma creatinine measurement (mass/volume)2023-08-12 20:47:00* Test Item Value Reference Range Interpretation Comme [facility] Creatinine (test code = 2160-0) 0.72 0.57-1.11 [facility]erum or plasma urea nitrogen/creatinine mass [id number] 20:47:00* Test Item Value Reference Range Interpretation Comme nts BUN/Creatinine Ratio (test c ode = 3097-3) 19 6- [facility] ClinicsGlomerular filtration rate/1.73 sq M.predicted [Volume Rate/Area] in Serum, Plasma or Blood by Creatinine-based formula (CKD-EPI 2020)2023-08-12 20:47:00* Test Item Value Reference Range Interpretation Comme [facility] Estimated GFR (CKD-EPI) (gold t code = 83570-0) 90 >=60 [facility] ClinicsGlucose [Moles/volume] in [id number] 20:47:00* Test Item Value Reference Range Interpretation Comme [facility] Glucose Level (test code = 29560-1) 92 74-118 [facility]er[facility] or plasma calcium measurement (mass/volume)2023-08-12 20:47:00* Test Item Value Reference Range Interpretation Comme [facility] Calcium Level (test code = 94912-6) 8.6 8.4-10.2 [facility]erum or plasma total bilirubin measurement (mass/volume)2023-08-12 20:47:00* Test Item Value Reference Range Interpretation Comme [facility] Total Bilirubin (test code = 1975-2) 0.3 0.2-1.2 [facility] Hospitalerum or plasma alanine aminotransferase measurement (enzymatic activity/volume)2023-08-12 20:47:00* Test Item Value Reference Range Interpretation Comme nts Alanine Aminotransferase (AL T/SGPT) (test code = 1742-6) 13 0-55 [facility] Hospitalerum or plasma protein measurement (mass/volume)2023-08-12 20:47:00* Test Item Value Reference Range Interpretation Comme nts Total Protein (test code = 2885-2) 6.6 6.5-8.1 [facility]erum or plasma albumin measurement (mass/volume)2023-08-12 20:47:00* Test Item Value Reference Range Interpretation Comme [facility] Albumin (test code = 1751-7) 3.4 3.5-5.0 [facility] ClinicsPlasma globulin measurement (mass/volume) 2023-08-12 20:47:00* Test Item Value Reference Range Interpretation Comme nts Globulin (test code = 41568-9) 3.2 2.3-3.5 [facility]er[facility] or plasma albumin/globulin mass ratio 2023-08-12 20:47:00* Test Item Value Reference Range Interpretation Comme [facility] Albumin/Globulin Ratio (test code = 1759-0) 1.1 0.8-2.0 [facility]erum or plasma alkaline phosphatase measurement (enzymatic activity/volume)2023-08-12 20:47:00* Test Item Value Reference Range Interpretation Comme [facility] Alkaline Phosphatase (test c ode = 6768-6) 93 40-150 [facility] ClinicsTroponin I measurement by highly sensitive enzyme wykogevefun2157-11-31 20:47:00* Test Item Value Reference Range Interpretation Comme nts Troponin I (test code = 65204-1) < 0.001 0-0.300 [facility] Hospitalerum or plasma creatine kinase measurement (enzymatic activity/volume)2023-08-10 07:28:00* Test Item Value Reference Range Interpretation Comme nts Creatine Kinase (test code = 2157-6) 44 29-168 [facility] ClinicsTroponin I measurement by highly sensitive enzyme cdxubvtrfje8375-22-75 07:28:00* Test Item Value Reference Range Interpretation Comme nts Troponin I (test code = 88670-5) < 0.001 0-0.300 [facility] ClinicsWBC # [id number] 06:25:00* Test Item Value Reference Range Interpretation Comme [facility] White Blood Count (test code = 51269-4) 5.91 4.8-10. 8 [facility] ClinicsBlood erythrocytes automated count (number/volume)2023-08-09 06:25:00* Test Item Value Reference Range Interpretation Comme [facility] Red Blood Count (test code = 789-8) 3.42 3.6-5.1 [facility] ClinicsBlood hemoglobin measurement (moles/volume) 2023-08-09 06:25:00* Test Item Value Reference Range Interpretation Comme [facility] Hemoglobin (test code = 63557-3) 9.7 12.0-16.0 [facility] ClinicsAutomated blood hematocrit (volume fraction) 2023-08-09 06:25:00* Test Item Value Reference Range Interpretation Comme [facility] Hematocrit (test code = 4544-3) 30.7 34.2-44.1 [facility] ClinicsAutomated erythrocyte mean corpuscular volume 2023-08-09 06:25:00* Test Item Value Reference Range Interpretation Comme [facility] Mean Corpuscular Volume (gold t code = 787-2) 89.8 81-99 [facility] ClinicsAutomated erythrocyte mean corpuscular hemoglobin (mass per erythrocyte)2023-08-09 06:25:00* Test Item Value Reference Range Interpretation Comme [facility] Mean Corpuscular Hemoglobin (test code = 785-6) 28.4 28-32 [facility] ClinicsAutomated erythrocyte mean corpuscular hemoglobin concentration measurement (mass/volume)2023-08-09 06:25:00* Test Item Value Reference Range Interpretation Comme [facility] Mean Corpuscular Hemoglobin Concent (test code = 786-4) 31.6 31-35 [facility] ClinicsRDW VbvFs-Rvd7629-47-13 06:25:00* Test Item Value Reference Range Interpretation Comme [facility] Red Cell Distribution Width (test code = 86141-0) 14.6 11.7-14.4 [facility] ClinicsAutomated blood platelet count (count/volume) 2023-08-09 06:25:00* Test Item Value Reference Range Interpretation Comme nts Platelet Count (test code = 777-3) 161 140-360 [facility] ClinicsAutomated blood segmented neutrophil count as percentage of total oxrfsohvmr4574-63-80 06:25:00* Test Item Value Reference Range Interpretation Comme nts Neutrophils (%) (Auto) (test code = 01933-7) 43.9 38.7-80.0 [facility] ClinicsAutomated blood lymphocyte count as percentage ot total cdrrceuqdk1982-30-78 06:25:00* Test Item Value Reference Range Interpretation Comme nts Lymphocytes (%) (Auto) (test code = 736-9) 41.8 18.0-39.1 [facility] ClinicsAutomated blood monocyte count as percentage of total rwhupsxdji7485-23-92 06:25:00* Test Item Value Reference Range Interpretation Comme nts Monocytes (%) (Auto) (test c ode = 5905-5) 9.6 4.4-11.3 [facility] ClinicsAutomated blood eosinophil count as percentage of total dyhevecntv4983-96-54 06:25:00* Test Item Value Reference Range Interpretation Comme nts Eosinophils (%) (Auto) (test code = 713-8) 3.6 0.0-6.0 [facility] ClinicsAutomated blood basophil count as percentage of total esgtcbhehh9706-96-97 06:25:00* Test Item Value Reference Range Interpretation Comme nts Basophils (%) (Auto) (test c ode = 706-2) 0.8 0.0-1.0 [facility] ClinicsFluoroscopic procedure less than one hour ftmvtakw5345-13-35 06:25:00* Test Item Value Reference Range Interpretation Comme nts IM GRANULOCYTES % (test code = IM GRANULOCYTES %) 0.3 0.0-1.0 [facility] ClinicsAutomated blood neutrophil livff3054-96-28 06:25:00* Test Item Value Reference Range Interpretation Comme nts Neutrophils # (Auto) (test c ode = 751-8) 2.6 2.1-6.9 [facility] ClinicsBlood lymphocytes count (number/volume) 2023-08-09 06:25:00* Test Item Value Reference Range Interpretation Comme nts Lymphocytes # (Auto) (test c ode = 15920-8) 2.5 1.0-3.2 [facility] ClinicsBlood monocytes automated count (number/volume)2023-08-09 06:25:00* Test Item Value Reference Range Interpretation Comme nts Monocytes # (Auto) (test code = 742-7) 0.6 0.2-0.8 [facility] ClinicsAutomated blood eosinophil lfvnx8022-26-27 06:25:00* Test Item Value Reference Range Interpretation Comme nts Eosinophils # (Auto) (test c ode = 711-2) 0.2 0.0-0.4 [facility] ClinicsAutomated blood basophil count (count/volume) 2023-08-09 06:25:00* Test Item Value Reference Range Interpretation Comme nts Basophils # (Auto) (test code = 704-7) 0.1 0.0-0.1 [facility]erum or plasma sodium measurement (moles/volume)2023-08-09 06:25:00* Test Item Value Reference Range Interpretation Comme nts Sodium Level (test code = 2951-2) 139 136-145 [facility]erum or plasma potassium measurement (moles/volume)2023-08-09 06:25:00* Test Item Value Reference Range Interpretation Comme nts Potassium Level (test code = 2823-3) 4.4 3.5-5.1 [facility]erum or plasma chloride measurement (moles/volume)2023-08-09 06:25:00* Test Item Value Reference Range Interpretation Comme nts Chloride Level (test code = 2075-0) 108 98-107 [facility]erum or plasma carbon dioxide, total measurement (moles/volume)2023-08-09 06:25:00* Test Item Value Reference Range Interpretation Comme nts Carbon Dioxide Level (test c ode = 2028-9) 25 22-29 [facility]erum or plasma anion [id number] 06:25:00 * Test Item Value Reference Range Interpretation Comme [facility] Anion Gap (test code = 89997-8) 10.4 8-16 [facility]erum or plasma urea nitrogen measurement (mass/volume)2023-08-09 06:25:00* Test Item Value Reference Range Interpretation Comme [facility] Blood Urea Nitrogen (test co de = 3094-0) 12 7-26 [facility]erum or plasma creatinine measurement (mass/volume)2023-08-09 06:25:00* Test Item Value Reference Range Interpretation Comme nts Creatinine (test code = 2160-0) 0.71 0.57-1.11 [facility]erum or plasma urea nitrogen/creatinine mass fppih8433-62-94 06:25:00* Test Item Value Reference Range Interpretation Comme [facility] BUN/Creatinine Ratio (test c ode = 3097-3) 17 6-25 [facility] ClinicsGlomerular filtration rate/1.73 sq M.predicted [Volume Rate/Area] in Serum, Plasma or Blood by Creatinine-based formula (CKD-EPI 2020)2023-08-09 06:25:00* Test Item Value Reference Range Interpretation Comme [facility] Estimated GFR (CKD-EPI) (gold t code = 07352-2) 91 >=60 [facility] ClinicsGlucose [Moles/volume] in [id number] 06:25:00* Test Item Value Reference Range Interpretation Comme [facility] Glucose Level (test code = 99491-1) 66 74-118 [facility]erum or plasma calcium measurement (mass/volume)2023-08-09 06:25:00* Test Item Value Reference Range Interpretation Comme [facility] Calcium Level (test code = 40257-5) 8.6 8.4-10.2 [facility]erum or plasma total bilirubin measurement (mass/volume)2023-08-09 06:25:00* Test Item Value Reference Range Interpretation Comme [facility] Total Bilirubin (test code = 1975-2) 0.4 0.2-1.2 [facility]erum or plasma alanine aminotransferase measurement (enzymatic activity/volume)2023-08-09 06:25:00* Test Item Value Reference Range Interpretation Comme [facility] Alanine Aminotransferase (AL T/SGPT) (test code = 1742-6) 11 0-55 [facility] Hospitalerum or plasma protein measurement (mass/volume)2023-08-09 06:25:00* Test Item Value Reference Range Interpretation Comme [facility] Total Protein (test code = 2885-2) 6.4 6.5-8.1 [facility]erum or plasma albumin measurement (mass/volume)2023-08-09 06:25:00* Test Item Value Reference Range Interpretation Comme [facility] Albumin (test code = 1751-7) 3.3 3.5-5.0 [facility] ClinicsPlasma globulin measurement (mass/volume) 2023-08-09 06:25:00* Test Item Value Reference Range Interpretation Comme [facility] Globulin (test code = 71911-1) 3.1 2.3-3.5 [facility]erum or plasma albumin/globulin mass ratio 2023-08-09 06:25:00* Test Item Value Reference Range Interpretation Comme [facility] Albumin/Globulin Ratio (test code = 1759-0) 1.1 0.8-2.0 [facility]erum or plasma alkaline phosphatase measurement (enzymatic activity/volume)2023-08-09 06:25:00* Test Item Value Reference Range Interpretation Comme [facility] Alkaline Phosphatase (test c ode = 6768-6) 93 40-150 [facility]erum or plasma triglyceride measurement (mass/volume)2023-08-09 06:25:00* Test Item Value Reference Range Interpretation Comme [facility] Triglycerides Level (test co de = 2571-8) 29 0-149 [facility]erum or plasma cholesterol measurement (mass/volume)2023-08-09 06:25:00* Test Item Value Reference Range Interpretation Comme [facility] Cholesterol Level (test code = 2093-3) 145 0-199 [facility]erum or plasma cholesterol in LDL measurement (mass/volume)2023-08-09 06:25:00* Test Item Value Reference Range Interpretation Comme [facility] LDL Cholesterol (test code = 2089-1) 81 60-130 [facility]erum or plasma cholesterol in HDL measurement (mass/volume)2023-08-09 06:25:00* Test Item Value Reference Range Interpretation Comme nts HDL Cholesterol (test code = 2085-9) 58 40-60 [facility]erum or plasma total cholesterol/cholesterol in HDL mass [id number] 06:25:00* Test Item Value Reference Range Interpretation Comme nts Cholesterol/HDL Ratio (test code = 9830-1) 2.5 3.0-3.6 [facility] ClinicsCT BRAIN [id number] 01:01:00 [facility] 1955 Sex: F [place] [address] Patient Name: HAYLEY KATZ MR #: [id number] : 1955 Age/Sex: 68/F Req#: [id number] Adm Physician: KUN NOVAK MD Ordered by: JONATHAN TORREZ DO Report #: [id number] Location: MED/SURG3 Room[facility]Bed: [facility]- Report: Diagnostic Imaging Report Status: Signed Procedure: [id number] CT/CT BRAIN WO Exam Date: 08/08/23 Exam Time: 2351 EXAM: CT BRAIN WO INDICATION: Dizziness TECHNIQUE: CT images from skull base to vertex without IV contrast. This exam was performed according to the departmental dose optimization program which includes automated exposure control, adjustment of t he mA and/or kV according to the patient size, and/or use of an iterative reconstruction technique.COMPARISON: 11/22/2017 FINDINGS: Parenchyma: No evidence of acute infarction. Chronic focal encephalomalacia of the left frontal lobesimilar to remote prior. No hemorrhage. No mass or mass effect. Patchy areas of hypoattenuation are present in the cerebral white matter that are nonspecific but compatible with mild chronic microvascular ischemic changes. Extra-axial Collection: None Ventricular System: Normal Osseous Structures: No acute osseous abnormality. Included Orbits: Normal Paranasal Sinuses: Predominantly clear Tympanomastoid Cavities: Normal Other: None IMPRESSION: 1. No acute abnormality on CT head without contrast. 2. 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 Signed by: Scarlet Morales on 08/09/2023 1:01 AM Dictated By: SCARLET MORALES MD 3 Transcribed By: NANCY on 08/09/23100 COPY TO: JONATHAN TORREZ color determination 2023-08-08 23:54:00* Test Item Value Reference Range Interpretation Comme nts Urine Color (test code = 5778-6) YELLOW YELLOW [facility] [id number] 23:54:00* Test Item Value Reference Range Interpretation Comme nts Urine Clarity (test code = 68405-8) CLEAR CLEAR [facility]pecific gravity of Urine by Test strip 2023-08-08 23:54:00* Test Item Value Reference Range Interpretation Comme nts Urine Specific [place] (test code = 5811-5) 1.015 1.010-1.025 [facility] ClinicsUrine pH measurement by automated test strip 2023-08-08 23:54:00* Test Item Value Reference Range Interpretation Comme nts Urine pH (test code = 17774-8) 6.5 5-7 [facility] ClinicsUrine leukocyte esterase detection by automated test [id number] 23:54:00* Test Item Value Reference Range Interpretation Comme nts Urine Leukocyte Esterase (te st code = 45656-5) SMALL NEGATIVE [facility] ClinicsUrine nitrite detection by automated test [id number] 23:54:00* Test Item Value Reference Range Interpretation Comme nts Urine Nitrite (test code = 81193-1) NEGATIVE NEGATIVE [facility]icsUrine protein detection by automated test [id number] 23:54:00* Test Item Value Reference Range Interpretation Comme nts Urine Protein (test code = 91243-8) NEGATIVE NEGATIVE [facility] ClinicsUrine glucose detection by automated test [id number] 23:54:00* Test Item Value Reference Range Interpretation Comme [facility] Urine Glucose (UA) (test cod e = 89097-2) NEGATIVE NEGATIVE [facility] ClinicsUrine ketones detection by automated test [id number] 23:54:00* Test Item Value Reference Range Interpretation Comme nts Urine Ketones (test code = 15183-6) NEGATIVE NEGATIVE [facility] ClinicsUrine opiates screening [id number] 23:54:00* Test Item Value Reference Range Interpretation Comme nts Urine Opiates Screen (test c ode = 29098-1) NEGATIVE NEGATIVE [facility] ClinicsBarbiturates screen, [id number] 23:54:00 * Test Item Value Reference Range Interpretation Comme nts Urine Barbiturates Screen (t est code = 397596140) NEGATIVE NEGATIVE [facility] ClinicsUrine phencyclidine detection by screening bvzejx6801-29-67 23:54:00* Test Item Value Reference Range Interpretation Comme nts Urine Phencyclidine Screen ( test code = 75076-9) NEGATIVE NEGATIVE [facility] ClinicsUrine amphetamines detection by screen method > 1000 ng/[id number] 23:54:00* Test Item Value Reference Range Interpretation Comme nts Urine Amphetamines Screen (t est code = 92542-2) NEGATIVE NEGATIVE [facility] ClinicsFluoroscopic procedure less than one hour veslcnil4768-88-05 23:54:00* Test Item Value Reference Range Interpretation Comme nts Urine Methamphetamines Scree n (test code = Urine Methamphetamines Screen) NEGATIVE NEGATIVE [facility] ClinicsUrine benzodiazepines detection by screening wxigbg4868-54-38 23:54:00* Test Item Value Reference Range Interpretation Comme nts Urine Benzodiazepines Screen (test code = 90353-5) POSITIVE NEGATIVE [facility] ClinicsUrine cocaine measurement (mass/volume) 2023-08-08 23:54:00* Test Item Value Reference Range Interpretation Comme nts Urine Cocaine Screen (test c ode = 3398-5) NEGATIVE NEGATIVE [facility] ClinicsUrine cannabinoids detection by screening [id number] 23:54:00* Test Item Value Reference Range Interpretation Comme nts Urine Cannabinoids Screen (t est code = 74123-8) NEGATIVE NEGATIVE [facility] ClinicsUrine methadone yrbpbe4054-72-50 23:54:00* Test Item Value Reference Range Interpretation Comme nts Urine Methadone Screen (test code = 22695-5) NEGATIVE NEGATIVE [facility] ClinicsUrine urobilinogen measurement by test strip (mass/volume)2023-08-08 23:54:00* Test Item Value Reference Range Interpretation Comme nts Urine Urobilinogen (test cod e = 09658-9) 0.2 0.2-1 [facility] ClinicsUrine total bilirubin tcjxlncmg9333-10-50 23:54:00* Test Item Value Reference Range Interpretation Comme nts Urine Bilirubin (test code = 1977-8) NEGATIVE NEGATIVE [facility] ClinicsUrine erythrocytes ilaphyqeg7548-64-82 23:54:00* Test Item Value Reference Range Interpretation Comme nts Urine Blood (test code = 34746-3) NEGATIVE NEGATIVE [facility] ClinicsAutomated urine sediment leukocyte count by microscopy (number/high power field)2023-08-08 23:54:00* Test Item Value Reference Range Interpretation Comme nts Urine WBC (test code = 5821-4) 6-10 0-5 [facility] ClinicsErythrocytes detection in urine sediment by light viuuyljfbq5347-61-33 23:54:00* Test Item Value Reference Range Interpretation Comme nts Urine RBC (test code = 23503-4) 0-5 0-5 [facility] ClinicsBacteria detection in urine sediment by light qrhkffrztj4350-33-39 23:54:00* Test Item Value Reference Range Interpretation Comme nts Urine Bacteria (test code = 26777-2) MANY NONE [facility] ClinicsEpithelial cells detection in urine sediment by light ywnmfdowoc2585-27-06 23:54:00* Test Item Value Reference Range Interpretation Comme nts Urine Epithelial Cells (test code = 85575-1) FEW NONE [facility] ClinicsCT CHEST [id number] 21:56:00 [facility] 1955 Sex: F [place] [address] Jaylene ent Name: HAYLEY KATZ MR #: [id number] : 1955 Age/Sex: 68/F Req #: [id number] Adm Physician: Ordered by: JONATHAN TORREZ DO Report #: [id number] Location: ER Room/Bed: Report: Diagnostic Imaging Report Status: Signed Procedure: [id number] CT/CT CHEST W Exam Date: 08/08/23 Exam Time: 2049 TECHNIQUE: CTA of the chest WITH intravenous contrast. Axial MIP images were provided to better assess the vasculature. Coronal and sagittal MPR images were performed. Dose modulation, iterative reconstruction, and/or weight-based adjustment of the mA/kV was utilized to reduce the radiation dose to as low as reasonably achievable. INDICATION: Chest pain. COMPARISON: CT 08/25/2019. FINDINGS: LINES/TUBES: None. PULMONARY ARTERIES: Proximal to the bifurcation of the main pulmonary artery, the main pulmonary artery is 2.5 cm in diameter. No filling defects within the pulmonary arteries to suggest pulmonaryembolus. HEART AND MEDIASTINUM: The visualized thyroid gland is normal. No significant mediastinal, hilar, oraxillary lymphadenopathy. The heart and pericardium are within normal limits. Patulous esophagus. PLEURA: The pleural spaces are clear. LUNGS AND AIRWAYS: Previously noted 6 mm left lower lobe pulmonary nodule not definitively identified on this examination. There is a new irregular 4 mm nodule within the superior segment of the right lower lobe and subtle subsolid 4 mm nodule within the posterior segment of the right upperlobe. No specific follow-up imaging as indicated. No focal consolidative process. The central airways are patent. Nonspecific mosaic attenuation pattern which may be related to small airways inflammatory changes. SOFT TISSUES AND BONES: Unremarkable. UPPER ABDOMEN: Unremarkable. IMPRESSION: 1. No evidence for acute pulmonary thromboembolic disease. 2. Subtle nonspecific mosaic attenuation pattern which may be related to small airways inflammatory changes. No focal consolidative process. 3. Air-fluid level within patulous mid esophagus. Signed by: Edinson Ballard on 08/08/2023 9:56 PM Dictated By: Edinson Lundberg MD 58 Transcribed By: PSCRIVICTORIANO on 08/08/232155 COPY TO: JONATHAN TORREZ Xuu-[id number] 21:08:00* Test Item Value Reference Range Interpretation Comme nts B-Type Natriuretic Peptide ( test code = 57406-4) 106.5 0-100 [facility]erum or plasma lipase measurement (enzymatic activity/volume)2023-08-08 21:08:00* Test Item Value Reference Range Interpretation Comme nts Lipase (test code = 3040-3) 30 8-78 [facility] HospitalARS[facility] (COVID-19) RNA [Presence] in Respiratory specimen by JOEY with probe ovsnojwrh2095-51-65 21:08:00* Test Item Value Reference Range Interpretation Comme nts Coronavirus (PCR) (test code = 29196-6) NOT DETECTED NOTDETECTED [facility] ClinicsBARIUM ENEMA W/AIR [id number] 12:11:00 [facility] : 1955 Sex: F [place] [address] Patient Name: HAYLEY KATZ MR #: [id number] : 1955 Age/Sex: 67/F Req #: [id number] Adm Physician: Ordered by: ALOK FLORES MD Report #: [id number] Location: OR Room/Bed: Report: Diagnostic Imaging Report Status: Signed Procedure: [id number] DX/BARIUM ENEMA W/AIR C Exam Date: 08/06/22 Exam Time: 1120 EXAM: Double contrast barium enema INDICATION: Incomplete colonoscopy. COMPARISON: None. FINDINGS: Drug Clerk image shows right upper quadrant cholecystectomy clips. Diffuse gaseous distention of the colon noted. No acute bony abnormality. The entire colon is coated with barium and adequately distended with air. No obstruction to retrograde flow of contrast from therectum to the terminal ileum. All colonic segments are well visualized and normal in appearance. The rectosigmoid ratio is normal. No stricture or transitional zone. Fluoroscopy time: 2.7 minutes Number of images: 17 IMPRESSION: Normal barium enema. Signed by: Steven Worrell on 08/06/2022 12:11 PM Dictated By: Steven Worrell MD 12 Transcribed By: NANCY on 08/06/221210 COPY TO: ALOK FLORES MD BASIC METABOLIC [id number] 21:57:00* Test Item Value Reference Range Interpretation Comme nts SODIUM (test code = NA) 140 mmol/L 136-145 N POTASSIUM (test code = K) 3.9 mmol/L 3.5-5.1 N CHLORIDE (test code = CL) 110.0 mmol/L 98-107 H CARBON DIOXIDE (test code = CO2) 23.0 mmol/L 21-32 N ANION GAP (test code = GAP) 10.9 10-20 N GLUCOSE (test code = GLU) 81 mg/dL 74-106 N BLOOD UREA NITROGEN (test code = BUN) 15 mg/dL 7-18 N GLOMERULAR FILTRATION RATE (test code = GFR) > 60 mL/min See_Comment The Glomerular Filtration Rate is a calculated parameterbased on serum Creatinine, patient age and sex. GFR valuesless than 60 mL/min/1.73 square meters are indicative ofChronic Kidney Disease. Values less than 15 mL/min/1.73square meters indicate Kidney failure. The calculation forGFR is based on the CKD-EPI (2020) calculation. This formulais race indifferent and is the recommended formula for GFRby the National Kidney Foundation for Adults.The GFR will not calculate if the sex is unknown or if thepatient's age is <18 years. [Automated message] The system which generated this result transmitted reference range: >=60. The reference range was not used to interpret this result as normal/abnormal. CREATININE (test code = CREAT) 0.60 mg/dL 0.55-1.02 N Note change in reference range due to change in reagent. BUN/CREATININE RATIO (test code = BUN/CREA) 24.2 10-20 H CALCIUM (test code = CA) 9.0 mg/dL 8.5-10.1 N HEPATIC FUNCTION [id number] 21:57:00* Test Item Value Reference Range Interpretation Comme nts TOTAL PROTEIN (test code = PROT) 7.0 gram/dL 6.4-8.2 N ALBUMIN (test code = ALB) 3.8 g/dL 3.4-5.0 N GLOBULIN (test code = GLOB) 3.2 gram/dL 2.7-4.2 N ALBUMIN/GLOBULIN RATIO (test code = A/G) 1.2 0.75-1.50 N BILIRUBIN TOTAL (test code = BILT) 0.70 mg/dL 0.0-1.0 N BILIRUBIN DIRECT (test code = BILD) 0.20 mg/dL 0.0-0.20 N SGOT/AST (test code = AST) 28 IUnit/L 15-37 N SGPT/ALT (test code = ALT) 15 IUnit/L 12-78 N ALKALINE PHOSPHATASE TOTAL (test code = ALKP) 73 IUnit/L 45-117 N Note change in reference range due to change in reagent. [id number] 21:57:00* Test Item Value Reference Range Interpretation Comme nts ACETAMINOPHEN (test code = ACET) < 0.2 mg/dL 1.0-3.0 L CAUTION: TO CONVERT FROM MG/DL TO MCG/ML MULTIPLY RESULT BY10 [id number] 21:57:00* Test Item Value Reference Range Interpretation Comme nts SALICYLATE (test code = JEAN-CLAUDE) < 3.0 mg/dL 2.8-20.0 N [id number] 21:57:00* Test Item Value Reference Range Interpretation Comme nts ALCOHOL (test code = ALC) 4 mg/dL 0.0-3.0 H -INTERPRET SHANI DATA NOTE: POSITIVE SCREENING RESULTS SHOULD BE CONSIDERED PRESUMPTIVE.WHEN COLLECTED FOR MEDICAL PURPOSES ONLY. SPECIMEN WILL NOTBE COLLECTED BY CHAIN OF CUSTODY.IF A CONFIRMATION OF POSITIVE RESULTS IS DESIRED, ACONFIRMATION TEST MUST BE REQUESTED BY THE PHYSICIAN AT ANADDITIONAL CHARGE TO THE PATIENT. URINALYSIS [id number] 21:54:00* Test Item Value Reference Range Interpretation Comme nts UA COLOR (test code = COLU) Light-Yellow YELLOW UA APPEARANCE (test code = APPU) CLEAR CLEAR IS THE SAMPLE FROM ER OR L&D?Y IF THE ANSWER IS NO,PLEASE DOCUMENT TWO RN SIGNATURES HERE- Rena Murphy.JG99 07/30/22 2144 UA GLUCOSE DIPSTICK (test code = DGLUU) NEGATIVE mg/dL NEGATIVE UA BILIRUBIN DIPSTICK (test code = BILU) NEGATIVE mg/dL NEGATIVE UA KETONE DIPSTICK (test code = KETU) NEGATIVE mg/dL NEGATIVE UA SPECIFIC GRAVITY (test code = SGU) 1.012 1.001-1.035 UA BLOOD DIPSTICK (test code = SAGAR) Negative mg/dL NEGATIVE UA PH DIPSTICK (test code = FLORA) 7.5 5.0-8.0 UA PROTEIN DIPSTICK (test code = PROU) NEGATIVE mg/dL NEGATIVE UA UROBILINIOGEN DIPSTICK (test code = URO) 2.0 (1+) mg/dL NEGATIVE A UA NITRITE DIPSTICK (test code = MAGGIE) NEGATIVE NEGATIVE UA LEUKOCYTE ESTERASE W REFLEX (test code = LEUUR) NEGATIVE Bobby/uL NEGATIVE UA WBC (test code = WBCU) 0-5 per HPF 0-5 UA RBC (test code = RBCU) 0-2 #/HPF 0-5 UA EPITHELIAL CELLS (test code = EPIU) FEW per HPF FEW UA BACTERIA (test code = BACU) NONE SEEN #/HPF NONE Urine Source? Clean CatchDRUGS OF ABUSE SCREEN [id number] 21:54:00* Test Item Value Reference Range Interpretation Comme nts URN COCAINE (test code = COCAURN) NEGATIVE See_Comment [Automated messa ge] The system which generated this result transmitted reference range: <300 ng/mL. The reference range was not used to interpret this result as normal/abnormal. URN CANNABINOIDS (test code = CANNABURN) NEGATIVE See_Comment [Automated sendwithus marisabel] The system which generated this result transmitted reference range: <50 ng/mL. The reference range was not used to interpret this result as normal/abnormal. URN AMPHETAMINE (test code = AMPHETURN) NEGATIVE See_Comment [Automated [employer] marisabel] The system which generated this result transmitted reference range: <1000 ng/mL. The reference range was not used to interpret this result as normal/abnormal. URN BARBITURATE (test code = BARBITURN) NEGATIVE See_Comment [Automated [employer]with[employer] marisabel] The system which generated this result transmitted reference range: <200 ng/mL. The reference range was not used to interpret this result as normal/abnormal. URN BENZODIAZEPINE (test code = BENZOURN) NEGATIVE See_Comment [Automated mess age] The system which generated this result transmitted reference range: <200 ng/mL. The reference range was not used to interpret this result as normal/abnormal. URN OPIATES (test code = OPIATURN) NEGATIVE See_Comment [Automated [employer] ge] The system which generated this result transmitted reference range: <300 ng/mL. The reference range was not used to interpret this result as normal/abnormal. URN PHENCYCLIDINE (PCP) (test code = PHENCURN) NEGATIVE See_Comment [Automate d message] The system which generated this result transmitted reference range: <25 ng/mL. The reference range was not used to interpret this result as normal/abnormal. URN METHADONE (test code = METHAURN) NEGATIVE See_Comment [Automated [employer] ge] The system which generated this result transmitted reference range: <300 ng/mL. The reference range was not used to interpret this result as normal/abnormal. Urine Source? [facility] [id number] 21:30:00* Test Item Value Reference Range Interpretation Comme nts WHITE BLOOD CELL (test code = WBC) 7.0 K/mm3 4.5-12.5 N RED BLOOD CELL (test code = RBC) 4.06 mill/mm3 3.7-5.2 N HEMOGLOBIN (test code = HGB) 12.4 gram/dL 11.5-15.5 N HEMATOCRIT (test code = HCT) 37.2 % 36.0-46.0 N MEAN CELL VOLUME (test code = MCV) 91.6 fL 80-98 N MEAN CELL HGB (test code = MCH) 30.5 picogram 27.0-33.0 N MEAN CELL HGB CONCETRATION (test code = MCHC) 33.3 gram/dL 33.0-36.0 N RED CELL DISTRIBUTION WIDTH (test code = RDW) 13.1 % 11.6-16.2 N PLATELET COUNT (test code = PLT) 202 K/mm3 150-450 N MEAN PLATELET VOLUME (test c ode = MPV) 10.0 fL 6.7-11.0 N Urine color wztzfbvrlfjta8167-33-91 20:03:00* Test Item Value Reference Range Interpretation Comme nts Urine Color (test code = 5778-6) YELLOW YELLOW [facility] ClinicsUrine [id number] 20:03:00* Test Item Value Reference Range Interpretation Comme nts Urine Clarity (test code = 34957-1) SL CLOUDY CLEAR [facility] Hospitalpecific gravity of Urine by Test strip 2022-07-29 20:03:00* Test Item Value Reference Range Interpretation Comme nts Urine Specific [place] (test code = 5811-5) 1.015 1.010-1.025 [facility]icsUrine pH measurement by automated test strip 2022-07-29 20:03:00* Test Item Value Reference Range Interpretation Comme nts Urine pH (test code = 81119-2) 7 5-7 [facility] ClinicsUrine leukocyte esterase detection by automated test [id number] 20:03:00* Test Item Value Reference Range Interpretation Comme nts Urine Leukocyte Esterase (te st code = 42496-8) SMALL NEGATIVE [facility] ClinicsUrine nitrite detection by automated test [id number] 20:03:00* Test Item Value Reference Range Interpretation Comme nts Urine Nitrite (test code = 64695-0) NEGATIVE NEGATIVE [facility]icsUrine protein detection by automated test [id number] 20:03:00* Test Item Value Reference Range Interpretation Comme nts Urine Protein (test code = 05730-9) NEGATIVE NEGATIVE [facility] ClinicsUrine glucose detection by automated test [id number] 20:03:00* Test Item Value Reference Range Interpretation Comme nts Urine Glucose (UA) (test cod e = 08560-4) NEGATIVE NEGATIVE [facility] ClinicsUrine ketones detection by automated test [id number] 20:03:00* Test Item Value Reference Range Interpretation Comme nts Urine Ketones (test code = 92899-6) NEGATIVE NEGATIVE [facility] ClinicsUrine urobilinogen measurement by test strip (mass/volume)2022-07-29 20:03:00* Test Item Value Reference Range Interpretation Comme nts Urine Urobilinogen (test cod e = 15489-9) 1 0.2-1 [facility] ClinicsUrine total bilirubin tvzhyvfjk2468-18-00 20:03:00* Test Item Value Reference Range Interpretation Comme nts Urine Bilirubin (test code = 1977-8) NEGATIVE NEGATIVE [facility] ClinicsUrine erythrocytes fftulslvk9985-32-71 20:03:00* Test Item Value Reference Range Interpretation Comme nts Urine Blood (test code = 65185-9) NEGATIVE NEGATIVE [facility] ClinicsAutomated urine sediment leukocyte count by microscopy (number/high power field)2022-07-29 20:03:00* Test Item Value Reference Range Interpretation Comme nts Urine WBC (test code = 5821-4) 6-10 0-5 [facility] ClinicsErythrocytes detection in urine sediment by light eyfllqqyql1535-09-41 20:03:00* Test Item Value Reference Range Interpretation Comme nts Urine RBC (test code = 81353-2) NONE 0-5 [facility] ClinicsBacteria detection in urine sediment by light wnxecyftte6348-87-43 20:03:00* Test Item Value Reference Range Interpretation Comme nts Urine Bacteria (test code = 79387-5) FEW NONE [facility] ClinicsEpithelial cells detection in urine sediment by light wejzoiniwz5848-44-84 20:03:00* Test Item Value Reference Range Interpretation Comme nts Urine Epithelial Cells (test code = 93754-9) NONE NONE [facility] ClinicsBlood leukocytes automated count (number/volume)2022-07-29 19:30:00* Test Item Value Reference Range Interpretation Comme nts White Blood Count (test code = 6690-2) 6.82 4.8-10.8 [facility] ClinicsBlood erythrocytes automated count (number/volume)2022-07-29 19:30:00* Test Item Value Reference Range Interpretation Comme nts Red Blood Count (test code = 789-8) 3.96 3.6-5.1 [facility] ClinicsBlood hemoglobin measurement (moles/volume) 2022-07-29 19:30:00* Test Item Value Reference Range Interpretation Comme [facility] Hemoglobin (test code = 85587-2) 12.3 12.0-16.0 [facility] ClinicsAutomated blood hematocrit (volume fraction) 2022-07-29 19:30:00* Test Item Value Reference Range Interpretation Comme [facility] Hematocrit (test code = 4544-3) 37.0 34.2-44.1 [facility] ClinicsAutomated erythrocyte mean corpuscular volume 2022-07-29 19:30:00* Test Item Value Reference Range Interpretation Comme [facility] Mean Corpuscular Volume (gold t code = 787-2) 93.4 81-99 [facility] ClinicsAutomated erythrocyte mean corpuscular hemoglobin (mass per erythrocyte)2022-07-29 19:30:00* Test Item Value Reference Range Interpretation Comme [facility] Mean Corpuscular Hemoglobin (test code = 785-6) 31.1 28-32 [facility] ClinicsAutomated erythrocyte mean corpuscular hemoglobin concentration measurement (mass/volume)2022-07-29 19:30:00* Test Item Value Reference Range Interpretation Comme [facility] Mean Corpuscular Hemoglobin Concent (test code = 786-4) 33.2 31-35 [facility] ClinicsRDW RhiIs-Qnv9645-70-03 19:30:00* Test Item Value Reference Range Interpretation Comme [facility] Red Cell Distribution Width (test code = 92981-4) 13.1 11.7-14.4 [facility] ClinicsAutomated blood platelet count (count/volume) 2022-07-29 19:30:00* Test Item Value Reference Range Interpretation Comme [facility] Platelet Count (test code = 777-3) 204 140-360 [facility] ClinicsAutomated blood segmented neutrophil count as percentage of total doewkrihbd6985-11-27 19:30:00* Test Item Value Reference Range Interpretation Comme [facility] Neutrophils (%) (Auto) (test code = 10765-8) 41.0 38.7-80.0 [facility] ClinicsAutomated blood lymphocyte count as percentage ot total fihoinwfoa5806-40-40 19:30:00* Test Item Value Reference Range Interpretation Comme nts Lymphocytes (%) (Auto) (test code = 736-9) 48.2 18.0-39.1 [facility] ClinicsAutomated blood monocyte count as percentage of total gvstgcasuo4192-59-28 19:30:00* Test Item Value Reference Range Interpretation Comme nts Monocytes (%) (Auto) (test c ode = 5905-5) 8.2 4.4-11.3 [facility] ClinicsAutomated blood eosinophil count as percentage of total hdhvuhmtep9906-29-48 19:30:00* Test Item Value Reference Range Interpretation Comme nts Eosinophils (%) (Auto) (test code = 713-8) 1.5 0.0-6.0 [facility] ClinicsAutomated blood basophil count as percentage of total reefjqpead8926-75-93 19:30:00* Test Item Value Reference Range Interpretation Comme nts Basophils (%) (Auto) (test c ode = 706-2) 1.0 0.0-1.0 [facility] ClinicsFluoroscopic procedure less than one hour npdttmdd6275-34-21 19:30:00* Test Item Value Reference Range Interpretation Comme nts IM GRANULOCYTES % (test code = IM GRANULOCYTES %) 0.1 0.0-1.0 [facility] ClinicsAutomated blood neutrophil eogfn7111-84-84 19:30:00* Test Item Value Reference Range Interpretation Comme nts Neutrophils # (Auto) (test c ode = 751-8) 2.8 2.1-6.9 [facility] ClinicsBlood lymphocytes count (number/volume) 2022-07-29 19:30:00* Test Item Value Reference Range Interpretation Comme nts Lymphocytes # (Auto) (test c ode = 32924-5) 3.3 1.0-3.2 [facility] ClinicsBlood monocytes automated count (number/volume)2022-07-29 19:30:00* Test Item Value Reference Range Interpretation Comme nts Monocytes # (Auto) (test code = 742-7) 0.6 0.2-0.8 [facility] ClinicsAutomated blood eosinophil dgzfr4522-18-00 19:30:00* Test Item Value Reference Range Interpretation Comme nts Eosinophils # (Auto) (test c ode = 711-2) 0.1 0.0-0.4 [facility] ClinicsAutomated blood basophil count (count/volume) 2022-07-29 19:30:00* Test Item Value Reference Range Interpretation Comme nts Basophils # (Auto) (test code = 704-7) 0.1 0.0-0.1 [facility] ClinicsFibrin D-dimer DDU measurement in platelet poor plasma (mass/volume)2022-07-29 19:30:00* Test Item Value Reference Range Interpretation Comme nts D-Dimer Quantitative (PE/DVT ) (test code = 25797-6) 0.33 0.00-0.45 [facility] Hospitalerum or plasma sodium measurement (moles/volume)2022-07-29 19:30:00* Test Item Value Reference Range Interpretation Comme [facility] Sodium Level (test code = 2951-2) 142 136-145 [facility] Hospitalerum or plasma potassium measurement (moles/volume)2022-07-29 19:30:00* Test Item Value Reference Range Interpretation Comme nts Potassium Level (test code = 2823-3) 4.0 3.5-5.1 [facility] Hospitalerum or plasma chloride measurement (moles/volume)2022-07-29 19:30:00* Test Item Value Reference Range Interpretation Comme nts Chloride Level (test code = 2075-0) 112 98-107 [facility] Hospitalerum or plasma carbon dioxide, total measurement (moles/volume)2022-07-29 19:30:00* Test Item Value Reference Range Interpretation Comme nts Carbon Dioxide Level (test c ode = 2027-9) 20 22-29 [facility] Hospitalerum or plasma anion [id number] 19:30:00 * Test Item Value Reference Range Interpretation Comme [facility] Anion Gap (test code = 70694-9) 14.0 8-16 [facility] Hospitalerum or plasma urea nitrogen measurement (mass/volume)2022-07-29 19:30:00* Test Item Value Reference Range Interpretation Comme [facility] Blood Urea Nitrogen (test co de = 3094-0) 18 7-26 [facility] Hospitalerum or plasma creatinine measurement (mass/volume)2022-07-29 19:30:00* Test Item Value Reference Range Interpretation Comme nts Creatinine (test code = 2160-0) 0.68 0.57-1.11 [facility] Hospitalerum or plasma urea nitrogen/creatinine mass webft7138-17-69 19:30:00* Test Item Value Reference Range Interpretation Comme [facility] BUN/Creatinine Ratio (test c ode = 3097-3) 26 6-25 [facility] ClinicsGlomerular filtration rate/1.73 sq M.predicted [Volume Rate/Area] in Serum, Plasma or Blood by Creatinine-based formula (CKD-EPI 2020)2022-07-29 19:30:00* Test Item Value Reference Range Interpretation Comme [facility] Estimated GFR (CKD-EPI) (gold t code = 07217-6) 94 >=60 [facility] ClinicsGlucose dajtumrfukg4305-63-97 19:30:00* Test Item Value Reference Range Interpretation Comme [facility] Glucose Level (test code = UNP6596) 88 74-118 [facility]er[facility] calcium measurement (mass/volume)2022-07-29 19:30:00* Test Item Value Reference Range Interpretation Comme [facility] Calcium Level (test code = 14132-0) 9.1 8.4-10.2 [facility] plasma total bilirubin measurement (mass/volume)2022-07-29 19:30:00* Test Item Value Reference Range Interpretation Comme [facility] Total Bilirubin (test code = 1975-2) 0.9 0.2-1.2 [facility]erum or plasma alanine aminotransferase measurement (enzymatic activity/volume)2022-07-29 19:30:00* Test Item Value Reference Range Interpretation Comme [facility] Alanine Aminotransferase (AL T/SGPT) (test code = 1742-6) 14 0-55 [facility]erum or plasma protein measurement (mass/volume)2022-07-29 19:30:00* Test Item Value Reference Range Interpretation Comme [facility] Total Protein (test code = 2885-2) 6.9 6.5-8.1 [facility]er[facility] or plasma albumin measurement (mass/volume)2022-07-29 19:30:00* Test Item Value Reference Range Interpretation Comme [facility] Albumin (test code = 1751-7) 3.7 3.5-5.0 [facility] ClinicsPlasma globulin measurement (mass/volume) 2022-07-29 19:30:00* Test Item Value Reference Range Interpretation Comme [facility] Globulin (test code = 01876-3) 3.2 2.3-3.5 [facility]erum or plasma albumin/globulin mass ratio 2022-07-29 19:30:00* Test Item Value Reference Range Interpretation Comme [facility] Albumin/Globulin Ratio (test code = 1759-0) 1.2 0.8-2.0 [facility] Hospitalerum or plasma alkaline phosphatase measurement (enzymatic activity/volume)2022-07-29 19:30:00* Test Item Value Reference Range Interpretation Comme [facility] Alkaline Phosphatase (test c ode = 6768-6) 63 40-150 [facility] ClinicsTroponin I measurement by highly sensitive enzyme hxpffmkhnfo8379-50-12 19:30:00* Test Item Value Reference Range Interpretation Comme [facility] Troponin I (test code = 90248-5) < 0.001 0-0.300 [facility] ClinicsRespiratory specimen severe acute respiratory syndrome-related coronavirus antigen detection by nlqzpwboirb1570-60-14 19:30:00 * Test Item Value Reference Range Interpretation Comme [facility] SARS-CoV-2 Antigen (test cod e = 84634-2) NOT DETECTED NEGATIVE [facility] ClinicsMODIFIED BA. [id number] 16:23:00 [facility] : 1955 Sex: F [facility] [address] [place] [address] Patient Name: HAYLEY KATZ MR #: [id number] : 1955 Age/Sex: 67/F Req #: [id number] Adm Physician: MAURICIO MONTOYA MD Ordered by: MAURICIO MONTOYA MD Report #: [id number] Location: MED/SURG Room/Bed: [facility]-1 Report: Diagnostic Imaging Report Status: Signed --- Procedure: [id number] DX/MODIFIED BA. SWALLOW Exam Date: 07/26/22 Exam Time: 1500 PROCEDURE: X- RAY MODIFIED BARIUM SWALLOW COMPARISON: None. INDICATION: Difficulty swallowing Radiation Details: Fluoroscopy time: 1.2minutes Cumulative dose: 1.0 mGy DISCUSSION: Fluoroscopic examination was performed in conjunction with speech pathology during swallowing a variety of thin and thick liquid consistencies. CONCLUSION: Modified barium swallow with fluoroscopic guidance. Please refer to the speech pathology report forfurther details. Signed by: Rosy Mccarthy on 07/26/2022 4:23 PM Dictated By: ROSY MCCARTHY MD 25 Transcribed By: PSCRIBE on 07/26/221622 COPY TO: MAURICIO MONTOYA COX MONETTespiratory specimen severe acute respiratory syndrome-related coronavirus antigen detection by foafyjteuub8537-81-94 03:52:00* Test Item Value Reference Range Interpretation Comme nts SARS-CoV-2 Antigen (test cod e = 80697-9) NOT DETECTED NEGATIVE [facility] ClinicsCT ABDOMEN/PELVIS [id number] 00:15:00 [facility] : 1955 Sex: F [place] [address] Patient Name: HAYLEY KATZ MR #: [id number] : 1955 Age/Sex: 67/F Req #: [id number] Adm Physician: Ordered by: Merced Salinas MD Report #: [id number] Location: ER Room/Bed: Report: Diagnostic Imaging Report Status: Signed Procedure: [id number] CT/CT ABDOMEN/PELVIS W Exam Date: 07/25/22 Exam Time: 1 TECHNIQUE: CT of the abdomen and pelvis WITH intravenous contrast and WITHOUT oral contrast. Dose modulation, iterative reconstruction, and/or weight-based adjustment of the mA/kV was utilized to reduce the radiation dose to as low as reasonably achievable. INDICATION: .ABD PAIN COMPARISON: CT 07/16/2022. FINDINGS: LOWER THORAX: 6 mm left lower lobe pulmonary nodule, unchanged compared to 08/24/2022; benign. HEPATOBILIARY: No focal hepatic lesions. Fatty infiltration of liver. Prior cholecystectomy No abnormal biliary ductal dilatation. SPLEEN: No splenomegaly. ADRENALS: No adrenal nodules. PANCREAS: No focal masses or ductal dilatation. LYMPH NODES: No lymphadenopathy. KIDNEYS/URETERS: No hydronephrosis, stones, or masses. PELVIC ORGANS/BLADDER: Prior hysterectomy. VESSELS: Unremarkable. PERITONEUM/RETROPERITONEUM: No free air or fluid. GI TRACT: No distention or wall thickening. Colonic diverticulosis without evidence for acute diverticulitis. BONES AND SOFT TISSUES: Unremarkable. IMPRESSION: 1. No renal, ureteral or bladder stone. 2. Colonic diverticulosis without evidence for acute diverticulitis. No evidence for bowel obstruction. 3. Fatty infiltration of liver. Signed by: Edinson Ballard on 07/26/2022 12:15 AM Dictated By: Edinson Lundberg MD Transcribed By: PSCRIBE on 07/26/2214 COPY TO: MERCED SALINAS [facility] SINGLE (PORTABLE)2022-07-26 00:01:00 [facility] : 1955 Sex: F [place] [address] Patient Name: HAYLEY KATZ MR #: [id number] : 1955 Age/Sex: 67/F Req #: [id number] [facility] Physician: Ordered by: Merced Salinas MD Report #: [id number] Location: Room/Bed: - Report: Diagnostic Imaging Report Status: Signed Procedure: [id number] DX/CHEST SINGLE (PORTABLE) Exam Date: 07/25/22 Exam Time: 0 TECHNIQUE: Frontal view of the chest. INDICATION: Abdominal pain. COMPARISON: None. FINDINGS: LINES/TUBES: None. HEART AND MEDIASTINUM: Cardiomediastinal contour is within normal limits. LUNGS: The lungs are well inflated and clear. No consolidation or pulmonaryedema. PLEURA: No pneumothorax. No significant pleural effusion. SOFT TISSUES AND BONES: Cholecystectomy clips are noted. Excreted contrast within the renal collecting systems. Cervical spinal fixation hardware. IMPRESSION: No acute cardiopulmonary process. Signed by: Edinson Ballard on 07/26/2022 12:01 AM Dictated By: Edinson Lundberg MD 0004 Transcribed By: NANCY on 07/26/22 0001 COPY TO: MERCED SALINAS MD Blood leukocytes automated count (number/volume)2022-07-25 23:17:00* Test Item Value Reference Range Interpretation Comme [facility] White Blood Count (test code = 6690-2) 7.33 4.8-10.8 [facility] ClinicsBlood erythrocytes automated count (number/volume)2022-07-25 23:17:00* Test Item Value Reference Range Interpretation Comme [facility] Red Blood Count (test code = 789-8) 3.91 3.6-5.1 [facility] ClinicsBlood hemoglobin measurement (moles/volume) 2022-07-25 23:17:00* Test Item Value Reference Range Interpretation Comme [facility] Hemoglobin (test code = 49291-3) 12.1 12.0-16.0 [facility] ClinicsAutomated blood hematocrit (volume fraction) 2022-07-25 23:17:00* Test Item Value Reference Range Interpretation Comme [facility] Hematocrit (test code = 4544-3) 36.2 34.2-44.1 [facility] ClinicsAutomated erythrocyte mean corpuscular volume 2022-07-25 23:17:00* Test Item Value Reference Range Interpretation Comme [facility] Mean Corpuscular Volume (gold t code = 787-2) 92.6 81-99 [facility] ClinicsAutomated erythrocyte mean corpuscular hemoglobin (mass per erythrocyte)2022-07-25 23:17:00* Test Item Value Reference Range Interpretation Comme [facility] Mean Corpuscular Hemoglobin (test code = 785-6) 30.9 28-32 [facility] ClinicsAutomated erythrocyte mean corpuscular hemoglobin concentration measurement (mass/volume)2022-07-25 23:17:00* Test Item Value Reference Range Interpretation Comme [facility] Mean Corpuscular Hemoglobin Concent (test code = 786-4) 33.4 31-35 [facility] ClinicsRDW EdyZz-Bmf9526-66-30 23:17:00* Test Item Value Reference Range Interpretation Comme [facility] Red Cell Distribution Width (test code = 29991-3) 12.5 11.7-14.4 [facility] ClinicsAutomated blood platelet count (count/volume) 2022-07-25 23:17:00* Test Item Value Reference Range Interpretation Comme [facility] Platelet Count (test code = 777-3) 202 140-360 [facility] ClinicsAutomated blood segmented neutrophil count as percentage of total tilroclzzj5160-49-80 23:17:00* Test Item Value Reference Range Interpretation Comme [facility] Neutrophils (%) (Auto) (test code = 41765-8) 42.8 38.7-80.0 [facility] ClinicsAutomated blood lymphocyte count as percentage ot total zgawrgrfwn6397-97-63 23:17:00* Test Item Value Reference Range Interpretation Comme nts Lymphocytes (%) (Auto) (test code = 736-9) 46.0 18.0-39.1 [facility] ClinicsAutomated blood monocyte count as percentage of total rupptqghcy1842-99-10 23:17:00* Test Item Value Reference Range Interpretation Comme nts Monocytes (%) (Auto) (test c ode = 5905-5) 8.6 4.4-11.3 [facility] ClinicsAutomated blood eosinophil count as percentage of total sabahkmmak5122-38-45 23:17:00* Test Item Value Reference Range Interpretation Comme nts Eosinophils (%) (Auto) (test code = 713-8) 1.4 0.0-6.0 [facility] ClinicsAutomated blood basophil count as percentage of total dynqthgpsq0997-51-92 23:17:00* Test Item Value Reference Range Interpretation Comme nts Basophils (%) (Auto) (test c ode = 706-2) 1.1 0.0-1.0 [facility] ClinicsFluoroscopic procedure less than one hour zkamvavm6620-84-39 23:17:00* Test Item Value Reference Range Interpretation Comme nts IM GRANULOCYTES % (test code = IM GRANULOCYTES %) 0.1 0.0-1.0 [facility] ClinicsAutomated blood neutrophil wffvs3477-38-09 23:17:00* Test Item Value Reference Range Interpretation Comme nts Neutrophils # (Auto) (test c ode = 751-8) 3.1 2.1-6.9 [facility] ClinicsBlood lymphocytes count (number/volume) 2022-07-25 23:17:00* Test Item Value Reference Range Interpretation Comme nts Lymphocytes # (Auto) (test c ode = 40069-0) 3.4 1.0-3.2 [facility] ClinicsBlood monocytes automated count (number/volume)2022-07-25 23:17:00* Test Item Value Reference Range Interpretation Comme nts Monocytes # (Auto) (test code = 742-7) 0.6 0.2-0.8 [facility] ClinicsAutomated blood eosinophil pspel6705-05-05 23:17:00* Test Item Value Reference Range Interpretation Comme nts Eosinophils # (Auto) (test c ode = 711-2) 0.1 0.0-0.4 [facility] ClinicsAutomated blood basophil count (count/volume) 2022-07-25 23:17:00* Test Item Value Reference Range Interpretation Comme nts Basophils # (Auto) (test code = 704-7) 0.1 0.0-0.1 [facility] ClinicsUrine color xdujzvhhndsfl8784-17-10 23:17:00 * Test Item Value Reference Range Interpretation Comme nts Urine Color (test code = 5778-6) YELLOW YELLOW [facility] ClinicsUrine owjoycr7054-08-06 23:17:00* Test Item Value Reference Range Interpretation Comme nts Urine Clarity (test code = 49471-8) CLOUDY CLEAR [facility] Hospitalpecific gravity of Urine by Test strip 2022-07-25 23:17:00* Test Item Value Reference Range Interpretation Comme nts Urine Specific [place] (test code = 5811-5) 1.020 1.010-1.025 [facility] ClinicsUrine pH measurement by automated test strip 2022-07-25 23:17:00* Test Item Value Reference Range Interpretation Comme nts Urine pH (test code = 90569-8) 7 5-7 [facility] ClinicsUrine leukocyte esterase detection by automated test xakaq6978-47-04 23:17:00* Test Item Value Reference Range Interpretation Comme nts Urine Leukocyte Esterase (te st code = 77351-8) 1+ NEGATIVE [facility] ClinicsUrine nitrite detection by automated test cmnkj9794-21-68 23:17:00* Test Item Value Reference Range Interpretation Comme nts Urine Nitrite (test code = 72666-1) POSITIVE NEGATIVE [facility] ClinicsUrine protein detection by automated test jukoz1882-11-60 23:17:00* Test Item Value Reference Range Interpretation Comme nts Urine Protein (test code = 73061-3) NEGATIVE NEGATIVE [facility] ClinicsUrine glucose detection by automated test qihnz0745-33-49 23:17:00* Test Item Value Reference Range Interpretation Comme nts Urine Glucose (UA) (test cod e = 89515-4) NEGATIVE NEGATIVE [facility] ClinicsUrine ketones detection by automated test srtfl3407-92-53 23:17:00* Test Item Value Reference Range Interpretation Comme nts Urine Ketones (test code = 65024-3) TRACE NEGATIVE [facility] ClinicsUrine urobilinogen measurement by test strip (mass/volume)2022-07-25 23:17:00* Test Item Value Reference Range Interpretation Comme nts Urine Urobilinogen (test cod e = 17555-3) 4.0 0.2-1 [facility] ClinicsUrine total bilirubin eqgznzuep3550-10-28 23:17:00* Test Item Value Reference Range Interpretation Comme nts Urine Bilirubin (test code = 1977-8) 1+ NEGATIVE [facility] ClinicsUrine erythrocytes yoxaofugl8401-00-04 23:17:00* Test Item Value Reference Range Interpretation Comme nts Urine Blood (test code = 16800-2) NEGATIVE NEGATIVE [facility] ClinicsAutomated urine sediment leukocyte count by microscopy (number/high power field)2022-07-25 23:17:00* Test Item Value Reference Range Interpretation Comme [facility] Urine WBC (test code = 5821-4) >50 0-5 [facility] ClinicsErythrocytes detection in urine sediment by light ctcmrglqky5858-09-17 23:17:00* Test Item Value Reference Range Interpretation Comme nts Urine RBC (test code = 24782-9) 6-10 0-5 [facility] ClinicsBacteria detection in urine sediment by light vewhvcpeha9710-04-13 23:17:00* Test Item Value Reference Range Interpretation Comme [facility] Urine Bacteria (test code = 49259-7) MANY NONE [facility] ClinicsEpithelial cells detection in urine sediment by light tkgiqnkjdx1505-95-91 23:17:00* Test Item Value Reference Range Interpretation Comme nts Urine Epithelial Cells (test code = 89969-1) FEW NONE [facility] ClinicsTransitional cells detection in urine sediment by light qnqxaobhdn2523-48-67 23:17:00* Test Item Value Reference Range Interpretation Comme [facility] Urine Transitional Epithelia l Cells (test code = 8249-5) FEW NONE [facility] ClinicsRenal epithelial cells detection in urine sediment by light hhisoyqhgy2044-90-61 23:17:00* Test Item Value Reference Range Interpretation Comme nts Urine Renal Epithelial Cells (test code = 45462-1) FEW NONE [facility] Hospitalerum or plasma sodium measurement (moles/volume)2022-07-25 23:17:00* Test Item Value Reference Range Interpretation Comme nts Sodium Level (test code = 2951-2) 142 136-145 [facility] Hospitalerum or plasma potassium measurement (moles/volume)2022-07-25 23:17:00* Test Item Value Reference Range Interpretation Comme nts Potassium Level (test code = 2823-3) 3.7 3.5-5.1 [facility] Hospitalerum or plasma chloride measurement (moles/volume)2022-07-25 23:17:00* Test Item Value Reference Range Interpretation Comme nts Chloride Level (test code = 2075-0) 108 98-107 [facility] Hospitalerum or plasma carbon dioxide, total measurement (moles/volume)2022-07-25 23:17:00* Test Item Value Reference Range Interpretation Comme nts Carbon Dioxide Level (test c ode = 2028-9) 23 22-29 [facility] Hospitalerum or plasma anion vsg1251-66-46 23:17:00 * Test Item Value Reference Range Interpretation Comme nts Anion Gap (test code = 11497-5) 14.7 8-16 [facility] Hospitalerum or plasma urea nitrogen measurement (mass/volume)2022-07-25 23:17:00* Test Item Value Reference Range Interpretation Comme nts Blood Urea Nitrogen (test co de = 3094-0) 20 7-26 [facility] Hospitalerum or plasma creatinine measurement (mass/volume)2022-07-25 23:17:00* Test Item Value Reference Range Interpretation Comme nts Creatinine (test code = 2160-0) 0.67 0.57-1.11 [facility] Hospitalerum or plasma urea nitrogen/creatinine mass jtxid1414-67-44 23:17:00* Test Item Value Reference Range Interpretation Comme nts BUN/Creatinine Ratio (test c ode = 3097-3) 30 6-25 [facility] ClinicsGlomerular filtration rate/1.73 sq M.predicted [Volume Rate/Area] in Serum, Plasma or Blood by Creatinine-based formula (CKD-EPI 2020)2022-07-25 23:17:00* Test Item Value Reference Range Interpretation Comme [facility] Estimated GFR (CKD-EPI) (gold t code = 19765-8) 95 >=60 [facility] ClinicsGlucose txjjcfkfwdt6061-80-82 23:17:00* Test Item Value Reference Range Interpretation Comme [facility] Glucose Level (test code = GBD6130) 78 74-118 [facility] Hospitalerum or plasma calcium measurement (mass/volume)2022-07-25 23:17:00* Test Item Value Reference Range Interpretation Comme [facility] Calcium Level (test code = 05718-0) 9.1 8.4-10.2 [facility] Hospitalerum or plasma total bilirubin measurement (mass/volume)2022-07-25 23:17:00* Test Item Value Reference Range Interpretation Comme [facility] Total Bilirubin (test code = 1975-2) 0.5 0.2-1.2 [facility] Hospitalerum or plasma alanine aminotransferase measurement (enzymatic activity/volume)2022-07-25 23:17:00* Test Item Value Reference Range Interpretation Comme [facility] Alanine Aminotransferase (AL T/SGPT) (test code = 1742-6) 13 0-55 [facility] Hospitalerum or plasma protein measurement (mass/volume)2022-07-25 23:17:00* Test Item Value Reference Range Interpretation Comme [facility] Total Protein (test code = 2885-2) 6.5 6.5-8.1 [facility] Hospitalerum or plasma albumin measurement (mass/volume)2022-07-25 23:17:00* Test Item Value Reference Range Interpretation Comme [facility] Albumin (test code = 1751-7) 3.7 3.5-5.0 [facility] ClinicsPlasma globulin measurement (mass/volume) 2022-07-25 23:17:00* Test Item Value Reference Range Interpretation Comme [facility] Globulin (test code = 44649-0) 2.8 2.3-3.5 [facility] Hospitalerum or plasma albumin/globulin mass ratio 2022-07-25 23:17:00* Test Item Value Reference Range Interpretation Comme [facility] Albumin/Globulin Ratio (test code = 1759-0) 1.3 0.8-2.0 [facility] Hospitalerum or plasma alkaline phosphatase measurement (enzymatic activity/volume)2022-07-25 23:17:00* Test Item Value Reference Range Interpretation Comme [facility] Alkaline Phosphatase (test c ode = 6768-6) 69 40-150 [facility] ClinicsBNP Bkc-wBax5239-06-30 23:17:00* Test Item Value Reference Range Interpretation Comme [facility] B-Type Natriuretic Peptide ( test code = 46317-6) 11.9 0-100 [facility] Hospitalerum or plasma creatine kinase measurement (enzymatic activity/volume)2022-07-25 23:17:00* Test Item Value Reference Range Interpretation Comme [facility] Creatine Kinase (test code = 2157-6) 95 29-168 [facility] Hospitalerum or plasma creatine kinase MB measurement (mass/volume)2022-07-25 23:17:00* Test Item Value Reference Range Interpretation Comme [facility] Creatine Kinase MB (test cod e = 48408-5) 0.90 0-5.0 [facility] ClinicsTroponin I measurement by highly sensitive enzyme wurwijlbjei9645-41-78 23:17:00* Test Item Value Reference Range Interpretation Comme [facility] Troponin I (test code = 54651-2) < 0.001 0-0.300 [facility] Hospitalerum or plasma lipase measurement (enzymatic activity/volume)2022-07-25 23:17:00* Test Item Value Reference Range Interpretation Comme [facility] Lipase (test code = 3040-3) 50 8-78 [facility] ClinicsCT ABDOMEN/PELVIS J9511-44-52 14:41:00 [facility] : 1955 Sex: F [address] [address] [place] Name: HAYLEY KATZ MR #: [id number] : 1955 Age/Sex: 67/F Req #: [id number] [facility] Physician: Ordered by: ALOK FLORES MD Report #: [id number] Location: CT Room/Bed: Report: Diagnostic Imaging Report Status: Signed Procedure: CT/CT ABDOMEN/PELVIS W Exam Date: 07/16/22 Exam Time: 824 EXAM: CT Abdomen and Pelvis WITH intravenous contrast INDICATION:Unintentional weight loss COMPARISON: CT abdomen and pelvis of 11/19/2021 TECHNIQUE: The abdomen andpelvis were scanned utilizing a multidetector helical scanner from the lung base to the pubic symphysis after administration of IV contrast. Coronal and sagittal reformations were obtained. Routine protocol was performed. Scan was performed during portal venous phase. Dose modulation, iterative reconstruction, and/or weight based adjustment of the mA/kV was utilized to reduce the radiation dose to as low as reasonably achievable. IV CONTRAST: 100mL of Isovue 370 ORAL CONTRAST: Water FINDINGS: LO WER THORAX: Stable 5 mm left lower lobe subpleural pulmonary nodule (axial image 8) does not require dedicated imaging follow-up. No focal lung base consolidation. HEPATOBILIARY: Hepatic steatosis. No focal liver lesion. No biliary ductal dilation. Patent portal veins. Status post cholecystectomy. S PLEEN: Unremarkable. PANCREAS: No focal masses or ductal dilatation. ADRENALS: No adrenal nodules. KIDNEYS/URETERS: No hydronephrosis, stones, or suspicious solid or cystic lesions. PELVIC ORGANS/BLADDER: Status post hysterectomy. Unremarkable bladder. PERITONEUM / RETROPERITONEUM: No free air or fluid. LYMPH NODES: No lymphadenopathy. VESSELS: Normal GI TRACT: Diverticulosis without CT evidence of diverticulitis. No distention or wall thickening. The appendix is not visualized. No inflammatorychanges in the right lower quadrant to suggest appendicitis. BONES AND SOFT TISSUES: No acute osseous injury. No suspicious lytic or blastic lesions. Unremarkable soft tissues. IMPRESSION: No acute fi ndings in the abdomen or pelvis. Hepatic steatosis. Diverticulosis. Signed by: Rosy Mccarthy on 07/17/2022 2:41 PM Dictated By: ROSY MCCARTHY MD 1444 Transcribed By: NANCY on 07/17/22 1441 COPY TO: ALOK FLORES MDURINALYSIS VUQWVXKQ6636-66-86 16:30:00* Test Item Value Reference Range Interpretation Comme nts UA COLOR (test code = COLU) YELLOW YELLOW UA APPEARANCE (test code = APPU) CLEAR CLEAR IS THE SAMPLE FROM ER OR L&D? IF THE ANSWER IS NO,PLEASE DOCUMENT TWO RN SIGNATURES HERE- by [id number] 01/01/22 1604 UA GLUCOSE DIPSTICK (test code = DGLUU) NEGATIVE mg/dL NEGATIVE UA BILIRUBIN DIPSTICK (test code = BILU) NEGATIVE mg/dL NEGATIVE UA KETONE DIPSTICK (test code = KETU) NEGATIVE mg/dL NEGATIVE UA SPECIFIC GRAVITY (test code = SGU) 1.022 1.001-1.035 UA BLOOD DIPSTICK (test code = SAGAR) Negative mg/dL NEGATIVE UA PH DIPSTICK (test code = FLORA) 7.0 5.0-8.0 UA PROTEIN DIPSTICK (test code = PROU) 10 (Trace) mg/dL NEGATIVE A UA UROBILINIOGEN DIPSTICK (test code = URO) 2.0 (1+) mg/dL NEGATIVE A UA NITRITE DIPSTICK (test code = MAGGIE) NEGATIVE NEGATIVE UA LEUKOCYTE ESTERASE W REFLEX (test code = LEUUR) NEGATIVE Bobby/uL NEGATIVE UA WBC (test code = WBCU) 0-5 per HPF 0-5 UA RBC (test code = RBCU) 0-2 #/HPF 0-5 UA EPITHELIAL CELLS (test code = EPIU) FEW per HPF FEW UA BACTERIA (test code = BACU) NONE SEEN #/HPF NONE UA MUCUS (test code = MUCU) FEW #/LPF FEW UA AMORPHOUS SEDIMENT (test code = AMORU) FEW #/LPF NONE Urine Source? Clean CatchDRUGS OF ABUSE SCREEN [id number] 16:30:00* Test Item Value Reference Range Interpretation Comme nts URN COCAINE (test code = COCAURN) NEGATIVE See_Comment [Automated [employer]] The system which generated this result transmitted reference range: <300 ng/mL. The reference range was not used to interpret this result as normal/abnormal. URN CANNABINOIDS (test code = CANNABURN) POSITIVE See_Comment [Automated [employer]] The system which generated this result transmitted reference range: <50 ng/mL. The reference range was not used to interpret this result as normal/abnormal. URN AMPHETAMINE (test code = AMPHETURN) NEGATIVE See_Comment [Automated [employer]] The system which generated this result transmitted reference range: <1000 ng/mL. The reference range was not used to interpret this result as normal/abnormal. URN BARBITURATE (test code = BARBITURN) NEGATIVE See_Comment [[employer]ated [employer]] The system which generated this result transmitted reference range: <200 ng/mL. The reference range was not used to interpret this result as normal/abnormal. URN BENZODIAZEPINE (test code = BENZOURN) NEGATIVE See_Comment [Automated mess age] The system which generated this result transmitted reference range: <200 ng/mL. The reference range was not used to interpret this result as normal/abnormal. URN OPIATES (test code = OPIATURN) NEGATIVE See_Comment [Automated messa ge] The system which generated this result transmitted reference range: <300 ng/mL. The reference range was not used to interpret this result as normal/abnormal. URN PHENCYCLIDINE (PCP) (test code = PHENCURN) NEGATIVE See_Comment [Automate d message] The system which generated this result transmitted reference range: <25 ng/mL. The reference range was not used to interpret this result as normal/abnormal. URN METHADONE (test code = METHAURN) NEGATIVE See_Comment [Automated messa ge] The system which generated this result transmitted reference range: <300 ng/mL. The reference range was not used to interpret this result as normal/abnormal. Urine Source? Clean CatchCBC W/O [id number] 16:09:00* Test Item Value Reference Range Interpretation Comme nts WHITE BLOOD CELL (test code = WBC) 6.1 K/mm3 4.5-12.5 N RED BLOOD CELL (test code = RBC) 4.15 mill/mm3 3.7-5.2 N HEMOGLOBIN (test code = HGB) 12.5 gram/dL 11.5-15.5 N HEMATOCRIT (test code = HCT) 38.4 % 36.0-46.0 N MEAN CELL VOLUME (test code = MCV) 92.5 fL 80-98 N MEAN CELL HGB (test code = MCH) 30.1 picogram 27.0-33.0 N MEAN CELL HGB CONCETRATION (test code = MCHC) 32.6 gram/dL 33.0-36.0 L RED CELL DISTRIBUTION WIDTH (test code = RDW) 14.9 % 11.6-16.2 N PLATELET COUNT (test code = PLT) 197 K/mm3 150-450 N MEAN PLATELET VOLUME (test c ode = MPV) 10.9 fL 6.7-11.0 N BASIC METABOLIC [id number] 16:05:00* Test Item Value Reference Range Interpretation Comme nts SODIUM (test code = NA) 138 mmol/L 136-145 N POTASSIUM (test code = K) 3.7 mmol/L 3.5-5.1 N CHLORIDE (test code = CL) 107.0 mmol/L 98-107 N CARBON DIOXIDE (test code = CO2) 25.0 mmol/L 21-32 N ANION GAP (test code = GAP) 9.7 10-20 L GLUCOSE (test code = GLU) 84 mg/dL 74-106 N BLOOD UREA NITROGEN (test code = BUN) 18 mg/dL 7-18 N GLOMERULAR FILTRATION RATE (test code = GFR) > 60 mL/min See_Comment Estimated GFR by using Modified MDRD formula.Chronic kidney disease is defined as either kidney damageor GFR <60 mL/min/1.73 m2 for >3 months. [Automated message] The system which generated this result transmitted reference range: >=60. The reference range was not used to interpret this result as normal/abnormal. CREATININE (test code = CREAT) 0.50 mg/dL 0.55-1.02 L Note change in reference range due to change in reagent. BUN/CREATININE RATIO (test code = BUN/CREA) 33.3 10-20 H CALCIUM (test code = CA) 8.7 mg/dL 8.5-10.1 N HEPATIC FUNCTION [id number] 16:05:00* Test Item Value Reference Range Interpretation Comme nts TOTAL PROTEIN (test code = PROT) 6.7 gram/dL 6.4-8.2 N ALBUMIN (test code = ALB) 3.4 g/dL 3.4-5.0 N GLOBULIN (test code = GLOB) 3.3 gram/dL 2.7-4.2 N ALBUMIN/GLOBULIN RATIO (test code = A/G) 1.0 0.75-1.50 N BILIRUBIN TOTAL (test code = BILT) 0.40 mg/dL 0.0-1.0 N BILIRUBIN DIRECT (test code = BILD) 0.10 mg/dL 0.0-0.20 N SGOT/AST (test code = AST) 30 IUnit/L 15-37 N SGPT/ALT (test code = ALT) 19 IUnit/L 12-78 N ALKALINE PHOSPHATASE TOTAL (test code = ALKP) 100 IUnit/L 45-117 N Note change in reference range due to change in reagent. [id number] 16:05:00* Test Item Value Reference Range Interpretation Comme nts ACETAMINOPHEN (test code = ACET) < 0.2 mg/dL 1.0-3.0 L CAUTION: TO CONVERT FROM MG/DL TO MCG/ML MULTIPLY RESULT BY10 [id number] 16:05:00* Test Item Value Reference Range Interpretation Comme nts SALICYLATE (test code = JEAN-CLAUDE) < 3.0 mg/dL 2.8-20.0 N [id number] 16:05:00* Test Item Value Reference Range Interpretation Comme nts ALCOHOL (test code = ALC) < 3 mg/dL 0.0-3.0 N -INTERPRE TIVE DATA NOTE: POSITIVE SCREENING RESULTS SHOULD BE CONSIDERED PRESUMPTIVE.WHEN COLLECTED FOR MEDICAL PURPOSES ONLY. SPECIMEN WILL NOTBE COLLECTED BY CHAIN OF CUSTODY.IF A CONFIRMATION OF POSITIVE RESULTS IS DESIRED, ACONFIRMATION TEST MUST BE REQUESTED BY THE PHYSICIAN AT ANADDITIONAL CHARGE TO THE PATIENT. COVID 19 INHOUSE [id number] 16:02:00* Test Item Value Reference Range Interpretation Comme nts COVID 19 INHOUSE AG (test co de = [id number]) NEGATIVE NEGATIVE [id number] 11:52:00* Test Item Value Reference Range Interpretation Comme nts TROPONIN-HS (test code = TROPI) 4.520 pg/mL 0-45 N CAUTION: Units o f the current test methodology (pg/mL)differ from the prior test methodology (ng/mL) by a factorof 1000. BASIC METABOLIC [id number] 07:34:00* Test Item Value Reference Range Interpretation Comme nts SODIUM (test code = NA) 141 mmol/L 136-145 N POTASSIUM (test code = K) 3.7 mmol/L 3.5-5.1 N CHLORIDE (test code = CL) 110.0 mmol/L 98-107 H CARBON DIOXIDE (test code = CO2) 25.0 mmol/L 21-32 N ANION GAP (test code = GAP) 9.7 10-20 L GLUCOSE (test code = GLU) 80 mg/dL 74-106 N BLOOD UREA NITROGEN (test code = BUN) 12 mg/dL 7-18 N GLOMERULAR FILTRATION RATE (test code = GFR) > 60 mL/min See_Comment Estimated GFR by using Modified MDRD formula.Chronic kidney disease is defined as either kidney damageor GFR <60 mL/min/1.73 m2 for >3 months. [Automated message] The system which generated this result transmitted reference range: >=60. The reference range was not used to interpret this result as normal/abnormal. CREATININE (test code = CREAT) 0.50 mg/dL 0.55-1.02 L Note change in reference range due to change in reagent. BUN/CREATININE RATIO (test code = BUN/CREA) 24.0 10-20 H CALCIUM (test code = CA) 8.0 mg/dL 8.5-10.1 L [id number] 07:34:00* Test Item Value Reference Range Interpretation Comme nts PHOSPHORUS (test code = PHOS) 3.0 mg/dL 2.5-4.9 N [id number] 07:34:00* Test Item Value Reference Range Interpretation Comme nts MAGNESIUM (test code = MAG) 1.8 mg/dL 1.8-2.4 N CBC W/AUTO [id number] 07:19:00* Test Item Value Reference Range Interpretation Comme nts WHITE BLOOD CELL (test code = WBC) 5.3 K/mm3 4.5-12.5 N RED BLOOD CELL (test code = RBC) 3.74 mill/mm3 3.7-5.2 N HEMOGLOBIN (test code = HGB) 11.3 gram/dL 11.5-15.5 L HEMATOCRIT (test code = HCT) 34.2 % 36.0-46.0 L MEAN CELL VOLUME (test code = MCV) 91.4 fL 80-98 N MEAN CELL HGB (test code = MCH) 30.2 picogram 27.0-33.0 N MEAN CELL HGB CONCETRATION (test code = MCHC) 33.0 gram/dL 33.0-36.0 N RED CELL DISTRIBUTION WIDTH (test code = RDW) 14.1 % 11.6-16.2 N RED CELL DISTRIBUTION WIDTH SD (test code = RDW-SD) 47.5 fL 37.0-51.0 N PLATELET COUNT (test code = PLT) 177 K/mm3 150-450 N MEAN PLATELET VOLUME (test c ode = MPV) 10.0 fL 6.7-11.0 N NEUTROPHIL % (test code = NT%) 46.5 [...] K/mm3 0.0-0.2 N MANUAL DIFF REQUIRED (test c ode = MDIFF) NO URINALYSIS [id number] 12:08:00* Test Item Value Reference Range Interpretation Comme nts UA COLOR (test code = COLU) YELLOW YELLOW UA APPEARANCE (test code = APPU) CLEAR CLEAR IS THE SAMPLE FROM ER OR L&D? Y IF THE ANSWER IS NO,PLEASE DOCUMENT TWO RN SIGNATURES HERE- by [id number] 12/12/21 1208 UA GLUCOSE DIPSTICK (test code = DGLUU) NEGATIVE mg/dL NEGATIVE UA BILIRUBIN DIPSTICK (test code = BILU) NEGATIVE mg/dL NEGATIVE UA KETONE DIPSTICK (test code = KETU) 10 (1+) mg/dL NEGATIVE A UA SPECIFIC GRAVITY (test code = SGU) 1.025 1.001-1.035 UA BLOOD DIPSTICK (test code = SAGAR) Negative mg/dL NEGATIVE UA PH DIPSTICK (test code = FLORA) 7.0 5.0-8.0 UA PROTEIN DIPSTICK (test code = PROU) 20 (Trace) mg/dL NEGATIVE A UA UROBILINIOGEN DIPSTICK (test code = URO) 2.0 (1+) mg/dL NEGATIVE A UA NITRITE DIPSTICK (test code = MAGGIE) NEGATIVE NEGATIVE UA LEUKOCYTE ESTERASE W REFLEX (test code = LEUUR) NEGATIVE Bobby/uL NEGATIVE UA WBC (test code = WBCU) 0-5 per HPF 0-5 UA RBC (test code = RBCU) 0-2 #/HPF 0-5 UA EPITHELIAL CELLS (test code = EPIU) MOD per HPF FEW UA BACTERIA (test code = BACU) NONE SEEN #/HPF NONE UA MUCUS (test code = MUCU) FEW #/LPF FEW Urine Source? Clean CatchBASIC METABOLIC [id number] 11:52:00* Test Item Value Reference Range Interpretation Comme nts SODIUM (test code = NA) 141 mmol/L 136-145 N POTASSIUM (test code = K) 3.7 mmol/L 3.5-5.1 N CHLORIDE (test code = CL) 111.0 mmol/L 98-107 H CARBON DIOXIDE (test code = CO2) 24.0 mmol/L 21-32 N ANION GAP (test code = GAP) 9.7 10-20 L GLUCOSE (test code = GLU) 88 mg/dL 74-106 N BLOOD UREA NITROGEN (test code = BUN) 20 mg/dL 7-18 H GLOMERULAR FILTRATION RATE (test code = GFR) > 60 mL/min See_Comment Estimated GFR by using Modified MDRD formula.Chronic kidney disease is defined as either kidney damageor GFR <60 mL/min/1.73 m2 for >3 months. [Automated message] The system which generated this result transmitted reference range: >=60. The reference range was not used to interpret this result as normal/abnormal. CREATININE (test code = CREAT) 0.50 mg/dL 0.55-1.02 L Note change in reference range due to change in reagent. BUN/CREATININE RATIO (test code = BUN/CREA) 41.7 10-20 H CALCIUM (test code = CA) 8.8 mg/dL 8.5-10.1 N [id number] 11:52:00* Test Item Value Reference Range Interpretation Comme nts LIPASE (test code = LIP) 44 U/L 12.00-57.00 N [id number] 11:52:00* Test Item Value Reference Range Interpretation Comme nts TROPONIN-HS (test code = TROPI) <4.0 pg/mL 0-45 N CAUTION: Units o f the current test methodology (pg/mL)differ from the prior test methodology (ng/mL) by a factorof 1000. B-TYPE NATRIURETIC [id number] 11:51:00* Test Item Value Reference Range Interpretation Comme nts B-TYPE NATRIURETIC PEPTIDE (test code = BNP) 138.5 pgram/mL 0-100 H CBC W/O [id number] 11:15:00* Test Item Value Reference Range Interpretation Comme nts WHITE BLOOD CELL (test code = WBC) 6.4 K/mm3 4.5-12.5 N RED BLOOD CELL (test code = RBC) 4.09 mill/mm3 3.7-5.2 N HEMOGLOBIN (test code = HGB) 12.0 gram/dL 11.5-15.5 N HEMATOCRIT (test code = HCT) 36.6 % 36.0-46.0 N MEAN CELL VOLUME (test code = MCV) 89.5 fL 80-98 N MEAN CELL HGB (test code = MCH) 29.3 picogram 27.0-33.0 N MEAN CELL HGB CONCETRATION (test code = MCHC) 32.8 gram/dL 33.0-36.0 L RED CELL DISTRIBUTION WIDTH (test code = RDW) 14.1 % 11.6-16.2 N PLATELET COUNT (test code = PLT) 219 K/mm3 150-450 N MEAN PLATELET VOLUME (test c ode = MPV) 10.0 fL 6.7-11.0 N - XR CHEST 1 [id number] 10:15:00 [facility]Name: HAYLEY KATZ : 1955 Sex: F FAX: Pranay Cheung [phone] [place]: St: PRE FAX: Y Lilly Zarate MD [phone] Name: HAYLEY KATZ [facility] : 1955 Age/S: 66/F [address] [facility] Unit #: [id number] Loc:[place] [address] Phys: Pranay Cheung MD Acct: [id number] Dis Date: Status: PRE ER PHONE #: [phone] Exam Date: 12/12/2021 1013 FAX #: [phone] Reason: WEAKNESS EXAMS: CPT CODE:[id number] XR CHEST 1 V 72789 REASON FOR EXAM: WEAKNESS Exam Order Date: 12/12/2021 10:00 AM Ordering M.D.: Pranay Cheung MD PROCEDURE: - XR CHEST 1 V COMPARISON: 02/03/2020 FINDINGS: Lines/Tubes: None The lungs are clear. There is no pleural effusion or pneumothorax. Pulmonary vascularity is wi thin normal limits. Cardiomediastinal silhouette and mediastinal contours are unchanged when accounting for differences in technique. Musculoskeletal structures and visualized portions of the upper abdomen are also unchanged. IMPRESSION: No acute cardiopulmonary process. Location: [facility] at 1015 Reported and signed by: Shant England M.D. CC: Pranay Cheung MD; Lilly Zarate Technologist: RT AMALIA(R) Trnscrd Date/Time/By: 12/12/2021 (1018) : By: [email or web address] Orig Print D/T: S: 12/12/2021 (1019) PAGE 1 Signed ReportCT ABDOMEN/PELVIS W 2021-11-19 16:59:00 [facility] CENTERName: HAYLEY KATZ : 1955 Sex: F [place] [address] Patient Name: HAYLEY KATZ MR #: [id number] : 1955 Age/Sex: 66/F Req#: [id number] [facility] Physician: Ordered by: JO-ANN SWEENEY PA-C Report #: [id number] Location: ER Room/Bed: Procedure: [id number] CT/CT ABDOMEN/PELVIS W Exam Date: 11/19/21 Exam [...] seen in the left lower lobe. The nodular is stable in size as compared tothe prior CT of the chest dated August 25, 2019. Liver and spleen are normal in size without focal abnormality. Gallbladder is surgically absent. No biliary dilatation is noted. Pancreas and adrenals are unremarkable. Both kidneys [...] 2. No mass or adenopathy in the abdomen pelvis. 3. Diverticular disease in the large bowel without diverticulitis. 4. Status post cholecystectomy and hysterectomy. Signed by: Scarlet Godinez on 11/19/2021 4:59 PM Dictated By: SCARLET GODINEZ MD 1701 Transcribed By: NANCY on 11/19/21 3162 COPY TO: JO-ANN SWEENEY [facility] leukocytes automated count (number/volume)2021-11-19 16:00:00* Test Item Value Reference Range Interpretation Comme [facility] White Blood Count (test code = 6690-2) 7.10 4.8-10.8 [facility] erythrocytes automated count (number/volume)2021-11-19 16:00:00* Test Item Value Reference Range Interpretation Comme [facility] Red Blood Count (test code = 789-8) 4.17 3.6-5.1 [facility]icsBlood hemoglobin measurement (moles/volume) 2021-11-19 16:00:00* Test Item Value Reference Range Interpretation Comme [facility] Hemoglobin (test code = 17473-8) 12.3 12.0-16.0 [facility] ClinicsAutomated blood hematocrit (volume fraction) 2021-11-19 16:00:00* Test Item Value Reference Range Interpretation Comme [facility] Hematocrit (test code = 4544-3) 37.6 34.2-44.1 [facility] ClinicsAutomated erythrocyte mean corpuscular volume 2021-11-19 16:00:00* Test Item Value Reference Range Interpretation Comme [facility] Mean Corpuscular Volume (gold t code = 787-2) 90.2 81-99 [facility] ClinicsAutomated erythrocyte mean corpuscular hemoglobin (mass per erythrocyte)2021-11-19 16:00:00* Test Item Value Reference Range Interpretation Comme [facility] Mean Corpuscular Hemoglobin (test code = 785-6) 29.5 28-32 [facility] ClinicsAutomated erythrocyte mean corpuscular hemoglobin concentration measurement (mass/volume)2021-11-19 16:00:00* Test Item Value Reference Range Interpretation Comme [facility] Mean Corpuscular Hemoglobin Concent (test code = 786-4) 32.7 31-35 [facility] ClinicsRDW [id number] 16:00:00* Test Item Value Reference Range Interpretation Comme [facility] Red Cell Distribution Width (test code = 57241-2) 13.4 11.7-14.4 [facility] ClinicsAutomated blood platelet count (count/volume) 2021-11-19 16:00:00* Test Item Value Reference Range Interpretation Comme [facility] Platelet Count (test code = 777-3) 235 140-360 [facility] ClinicsAutomated blood segmented neutrophil count as percentage of total [id number] 16:00:00* Test Item Value Reference Range Interpretation Comme nts Neutrophils (%) (Auto) (test code = 91697-7) 70.9 38.7-80.0 [facility] ClinicsAutomated blood lymphocyte count as percentage ot total [id number] 16:00:00* Test Item Value Reference Range Interpretation Comme nts Lymphocytes (%) (Auto) (test code = 736-9) 21.1 18.0-39.1 [facility] ClinicsAutomated blood monocyte count as percentage of total [id number] 16:00:00* Test Item Value Reference Range Interpretation Comme nts Monocytes (%) (Auto) (test c ode = 5905-5) 6.9 4.4-11.3 [facility] ClinicsAutomated blood eosinophil count as percentage of total [id number] 16:00:00* Test Item Value Reference Range Interpretation Comme nts Eosinophils (%) (Auto) (test code = 713-8) 0.4 0.0-6.0 [facility] ClinicsAutomated blood basophil count as percentage of total [id number] 16:00:00* Test Item Value Reference Range Interpretation Comme nts Basophils (%) (Auto) (test c ode = 706-2) 0.6 0.0-1.0 [facility] ClinicsFluoroscopic procedure less than one hour [id number] 16:00:00* Test Item Value Reference Range Interpretation Comme nts IM GRANULOCYTES % (test code = IM GRANULOCYTES %) 0.1 0.0-1.0 [facility] ClinicsAutomated blood neutrophil [id number] 16:00:00* Test Item Value Reference Range Interpretation Comme nts Neutrophils # (Auto) (test c ode = 751-8) 5.0 2.1-6.9 [facility] ClinicsBlood lymphocytes count (number/volume) 2021-11-19 16:00:00* Test Item Value Reference Range Interpretation Comme nts Lymphocytes # (Auto) (test c ode = 43236-7) 1.5 1.0-3.2 [facility] ClinicsBlood monocytes automated count (number/volume)2021-11-19 16:00:00* Test Item Value Reference Range Interpretation Comme nts Monocytes # (Auto) (test code = 742-7) 0.5 0.2-0.8 [facility] ClinicsAutomated blood eosinophil [id number] 16:00:00* Test Item Value Reference Range Interpretation Comme nts Eosinophils # (Auto) (test c ode = 711-2) 0.0 0.0-0.4 [facility] ClinicsAutomated blood basophil count (count/volume) 2021-11-19 16:00:00* Test Item Value Reference Range Interpretation Comme nts Basophils # (Auto) (test code = 704-7) 0.0 0.0-0.1 [facility] sodium measurement (moles/volume)2021-11-19 16:00:00* Test Item Value Reference Range Interpretation Comme [facility] Sodium Level (test code = 2951-2) 138 136-145 [facility] potassium measurement (moles/volume)2021-11-19 16:00:00* Test Item Value Reference Range Interpretation Comme [facility] Potassium Level (test code = 2823-3) 3.6 3.5-5.1 [facility]er[facility] plasma chloride measurement (moles/volume)2021-11-19 16:00:00* Test Item Value Reference Range Interpretation Comme [facility] Chloride Level (test code = 2075-0) 106 98-107 [facility] or plasma carbon dioxide, total measurement (moles/volume)2021-11-19 16:00:00* Test Item Value Reference Range Interpretation Comme [facility] Carbon Dioxide Level (test c ode = 2028-9) 21 22- [facility] Hospitalerum or plasma anion [id number] 16:00:00 * Test Item Value Reference Range Interpretation Comme [facility] Anion Gap (test code = 85949-2) 14.6 8-16 [facility] Hospitalerum or plasma urea nitrogen measurement (mass/volume)2021-11-19 16:00:00* Test Item Value Reference Range Interpretation Comme [facility] Blood Urea Nitrogen (test co de = 3094-0) 8 7-26 [facility] or plasma creatinine measurement (mass/volume)2021-11-19 16:00:00* Test Item Value Reference Range Interpretation Comme nts Creatinine (test code = 2160-0) 0.66 0.57-1.11 [facility] Hospitalerum or plasma urea nitrogen/creatinine mass [id number] 16:00:00* Test Item Value Reference Range Interpretation Comme [facility] BUN/Creatinine Ratio (test c ode = 3097-3) 12 6-25 [facility] ClinicsGlomerular filtration rate/1.73 sq M.predicted [Volume Rate/Area] in Serum, Plasma or Blood by Creatinine-based formula (CKD-EPI 2020)2021-11-19 16:00:00* Test Item Value Reference Range Interpretation Comme nts Estimated GFR (CKD-EPI) (test code = 95102-9) 95 See_Comment [Automated message] The system which generated this result transmitted reference range: >=60. The reference range was not used to interpret this result as normal/abnormal. [facility] ClinicsGlucose bzyvaorlxpj4840-67-51 16:00:00* Test Item Value Reference Range Interpretation Comme [facility] Glucose Level (test code = NSO4144) 100 74-118 [facility]er[facility] or plasma calcium measurement (mass/volume)2021-11-19 16:00:00* Test Item Value Reference Range Interpretation Comme [facility] Calcium Level (test code = 84581-7) 8.6 8.4-10.2 [facility]er[facility] or plasma total bilirubin measurement (mass/volume)2021-11-19 16:00:00* Test Item Value Reference Range Interpretation Comme [facility] Total Bilirubin (test code = 1975-2) 0.4 0.2-1.2 [facility] Hospitalerum or plasma alanine aminotransferase measurement (enzymatic activity/volume)2021-11-19 16:00:00* Test Item Value Reference Range Interpretation Comme [facility] Alanine Aminotransferase (AL T/SGPT) (test code = 1742-6) 15 0-55 [facility] Hospitalerum or plasma protein measurement (mass/volume)2021-11-19 16:00:00* Test Item Value Reference Range Interpretation Comme [facility] Total Protein (test code = 2885-2) 7.6 6.5-8.1 [facility]er[facility] or plasma albumin measurement (mass/volume)2021-11-19 16:00:00* Test Item Value Reference Range Interpretation Comme [facility] Albumin (test code = 1751-7) 3.5 3.5-5.0 [facility] ClinicsPlasma globulin measurement (mass/volume) 2021-11-19 16:00:00* Test Item Value Reference Range Interpretation Comme [facility] Globulin (test code = 16629-4) 4.1 2.3-3.5 [facility]erum or plasma albumin/globulin mass ratio 2021-11-19 16:00:00* Test Item Value Reference Range Interpretation Comme [facility] Albumin/Globulin Ratio (test code = 1759-0) 0.9 0.8-2.0 [facility]er[facility] or plasma alkaline phosphatase measurement (enzymatic activity/volume)2021-11-19 16:00:00* Test Item Value Reference Range Interpretation Comme nts Alkaline Phosphatase (test c ode = 6768-6) 119 40-150 [facility] ClinicsTroponin I measurement by highly sensitive enzyme kbnlhkwkptz8306-84-21 16:00:00* Test Item Value Reference Range Interpretation Comme nts Troponin I (test code = 68641-5) < 0.001 0-0.300 [facility]erum or plasma lipase measurement (enzymatic activity/volume)2021-11-19 16:00:00* Test Item Value Reference Range Interpretation Comme nts Lipase (test code = 3040-3) 42 8-78 [facility] ClinicsCHEST SINGLE (PORTABLE)2021-11-19 15:19:00 [facility] 1955 Sex: F [place] [address] Patient Name: HAYLEY KATZ MR #: [id number] : 1955 Age/Sex: 66/F Req #: [id number] [facility] Physician: Ordered by: JO-ANN SWEENEY Report #: [id number] Location: Room/Bed: Procedure: [id number] DX/CHEST SINGLE (PORTABLE) Exam Date: 11/19/21 Exam Time: 1443 REPORT STATUS: Signed Exam: Chest radiograph Clinical History: Weight loss COMPARISON: May 24, 2021 Findings: The cardiomediastinal silhouette and lungs are normal. The regional skeleton and soft tissue are unremarkable. There is no evidence of pleural effusion or pneumothorax. Impression: No radiographic evidence of acute cardiopulmonary disease. Signed by: Gege Anne on 11/19/2021 3:19 PM Dictated By: GEGE ANNE MD 1521 Transcribed By: NANCY on 11/19/21 1519 COPY TO: JO-ANN SWEENEY color qiymfroulwafu5434-58-11 14:48:00* Test Item Value Reference Range Interpretation Comme [facility] Urine Color (test code = 5778-6) YELLOW YELLOW [facility]ics[facility] junrqfl8058-79-72 14:48:00* Test Item Value Reference Range Interpretation Comme [facility] Urine Clarity (test code = 77521-2) CLEAR CLEAR [facility] by Test strip 2021-11-19 14:48:00* Test Item Value Reference Range Interpretation Comme [facility] Urine Specific [place] (test code = 5811-5) 1.020 1.010-1.025 [facility] pH measurement by automated test strip 2021-11-19 14:48:00* Test Item Value Reference Range Interpretation Comme [facility] Urine pH (test code = 55511-5) 7 5-7 [facility]icsU[facility] leukocyte esterase detection by automated test kicfc8983-00-08 14:48:00* Test Item Value Reference Range Interpretation Comme [facility] Urine Leukocyte Esterase (te st code = 65508-3) SMALL NEGATIVE [facility]icsUrine nitrite detection by automated test kpwjp9139-56-88 14:48:00* Test Item Value Reference Range Interpretation Comme [facility] Urine Nitrite (test code = 13809-3) NEGATIVE NEGATIVE [facility]icsU[facility] protein detection by automated test obdmd1943-88-05 14:48:00* Test Item Value Reference Range Interpretation Comme nts Urine Protein (test code = 75888-3) NEGATIVE NEGATIVE [facility]icsU[facility] glucose detection by automated test ihxal8764-60-61 14:48:00* Test Item Value Reference Range Interpretation Comme nts Urine Glucose (UA) (test cod e = 80424-4) NEGATIVE NEGATIVE [facility]icsUrine ketones detection by automated test zrjvl4651-99-98 14:48:00* Test Item Value Reference Range Interpretation Comme nts Urine Ketones (test code = 53043-7) NEGATIVE NEGATIVE [facility] ClinicsUrine urobilinogen measurement by test strip (mass/volume)2021-11-19 14:48:00* Test Item Value Reference Range Interpretation Comme nts Urine Urobilinogen (test cod e = 48087-4) 2 0.2-1 [facility]icsUrine total bilirubin nnoaogqic0850-45-08 14:48:00* Test Item Value Reference Range Interpretation Comme nts Urine Bilirubin (test code = 1977-8) NEGATIVE NEGATIVE [facility]icsUrine erythrocytes vsbnevbyy7796-18-76 14:48:00* Test Item Value Reference Range Interpretation Comme nts Urine Blood (test code = 87874-1) NEGATIVE NEGATIVE [facility] ClinicsAutomated urine sediment leukocyte count by microscopy (number/high power field)2021-11-19 14:48:00* Test Item Value Reference Range Interpretation Comme nts Urine WBC (test code = 5821-4) 6-10 0-5 [facility] ClinicsErythrocytes detection in urine sediment by light mamarbbrdu1658-98-63 14:48:00* Test Item Value Reference Range Interpretation Comme nts Urine RBC (test code = 42925-3) NONE 0-5 [facility] ClinicsBacteria detection in urine sediment by light yhsrstafej0861-39-25 14:48:00* Test Item Value Reference Range Interpretation Comme nts Urine Bacteria (test code = 28677-9) MODERATE NONE [facility] ClinicsEpithelial cells detection in urine sediment by light iqmvsqgmpt3265-68-93 14:48:00* Test Item Value Reference Range Interpretation Comme [facility] Urine Epithelial Cells (test code = 63305-9) MODERATE NONE [facility] ClinicsAmorphous sediment detection in urine sediment by light jtpvswtwix1369-08-07 14:48:00* Test Item Value Reference Range Interpretation Comme [facility] Urine Amorphous Sediment (te st code = 8246-1) MODERATE FEW [facility] or plasma creatine kinase measurement (enzymatic activity/volume)2021-05-25 10:47:00* Test Item Value Reference Range Interpretation Comme [facility] Creatine Kinase (test code = 2157-6) 34 29-168 [facility]er[facility] or plasma creatine kinase MB measurement (mass/volume)2021-05-25 10:47:00* Test Item Value Reference Range Interpretation Comme [facility] Creatine Kinase MB (test cod e = 01827-0) 0.70 0-5.0 [facility] ClinicsTroponin I measurement by highly sensitive enzyme fgidttejjyx7280-96-05 09:47:00* Test Item Value Reference Range Interpretation Comme [facility] Troponin I (test code = 55455-6) 0.001 0-0.300 [facility] ClinicsBlood leukocytes automated count (number/volume)2021-05-25 06:05:00* Test Item Value Reference Range Interpretation Comme [facility] White Blood Count (test code = 6690-2) 5.71 4.8-10.8 [facility]icsBl[facility] erythrocytes automated count (number/volume)2021-05-25 06:05:00* Test Item Value Reference Range Interpretation Comme [facility] Red Blood Count (test code = 789-8) 4.00 3.6-5.1 [facility] ClinicsBlood hemoglobin measurement (moles/volume) 2021-05-25 06:05:00* Test Item Value Reference Range Interpretation Comme [facility] Hemoglobin (test code = 72998-9) 12.3 12.0-16.0 [facility] ClinicsAutomated blood hematocrit (volume fraction) 2021-05-25 06:05:00* Test Item Value Reference Range Interpretation Comme [facility] Hematocrit (test code = 4544-3) 36.2 34.2-44.1 [facility] ClinicsAutomated erythrocyte mean corpuscular volume 2021-05-25 06:05:00* Test Item Value Reference Range Interpretation Comme [facility] Mean Corpuscular Volume (gold t code = 787-2) 90.5 81-99 [facility] ClinicsAutomated erythrocyte mean corpuscular hemoglobin (mass per erythrocyte)2021-05-25 06:05:00* Test Item Value Reference Range Interpretation Comme [facility] Mean Corpuscular Hemoglobin (test code = 785-6) 30.8 28-32 [facility] ClinicsAutomated erythrocyte mean corpuscular hemoglobin concentration measurement (mass/volume)2021-05-25 06:05:00* Test Item Value Reference Range Interpretation Comme [facility] Mean Corpuscular Hemoglobin Concent (test code = 786-4) 34.0 31-35 [facility] ClinicsRDW QifPk-Fjw9659-82-28 06:05:00* Test Item Value Reference Range Interpretation Comme [facility] Red Cell Distribution Width (test code = 70167-2) 12.4 11.7-14.4 [facility] ClinicsAutomated blood platelet count (count/volume) 2021-05-25 06:05:00* Test Item Value Reference Range Interpretation Comme [facility] Platelet Count (test code = 777-3) 186 140-360 [facility] segmented neutrophil count as percentage of total lrnyyrqljk4872-46-61 06:05:00* Test Item Value Reference Range Interpretation Comme nts Neutrophils (%) (Auto) (test code = 88906-6) 47.9 38.7-80.0 [facility] ClinicsAutomated blood lymphocyte count as percentage ot total nfwjvtcevs8800-00-46 06:05:00* Test Item Value Reference Range Interpretation Comme nts Lymphocytes (%) (Auto) (test code = 736-9) 38.4 18.0-39.1 [facility] ClinicsAutatrium healthed blood monocyte count as percentage of total xspcjkahkn3651-32-43 06:05:00* Test Item Value Reference Range Interpretation Comme nts Monocytes (%) (Auto) (test c ode = 5905-5) 10.3 4.4-11.[address] [facility] eosinophil count as percentage of total nkbkuayfth8621-41-23 06:05:00* Test Item Value Reference Range Interpretation Comme nts Eosinophils (%) (Auto) (test code = 713-8) 1.8 0.0-6.0 [facility] ClinicsAutomated blood basophil count as percentage of total fditupszkl0066-33-04 06:05:00* Test Item Value Reference Range Interpretation Comme nts Basophils (%) (Auto) (test c ode = 706-2) 1.2 0.0-1.0 [facility] ClinicsFluoroscopic procedure less than one hour tqonizvq2917-42-94 06:05:00* Test Item Value Reference Range Interpretation Comme nts IM GRANULOCYTES % (test code = IM GRANULOCYTES %) 0.4 0.0-1.0 [facility] ClinicsAutomated blood neutrophil oowko1707-95-57 06:05:00* Test Item Value Reference Range Interpretation Comme nts Neutrophils # (Auto) (test c ode = 751-8) 2.7 2.1-6.9 [facility] ClinicsBlood lymphocytes count (number/volume) 2021-05-25 06:05:00* Test Item Value Reference Range Interpretation Comme nts Lymphocytes # (Auto) (test c ode = 92398-7) 2.2 1.0-3.2 [facility] ClinicsBlood monocytes automated count (number/volume)2021-05-25 06:05:00* Test Item Value Reference Range Interpretation Comme nts Monocytes # (Auto) (test code = 742-7) 0.6 0.2-0.8 [facility] ClinicsAutomated blood eosinophil vqnfd5394-09-15 06:05:00* Test Item Value Reference Range Interpretation Comme nts Eosinophils # (Auto) (test c ode = 711-2) 0.1 0.0-0.4 [facility] ClinicsAutomated blood basophil count (count/volume) 2021-05-25 06:05:00* Test Item Value Reference Range Interpretation Comme nts Basophils # (Auto) (test code = 704-7) 0.1 0.0-0.1 [facility]erum or plasma sodium measurement (moles/volume)2021-05-25 06:05:00* Test Item Value Reference Range Interpretation Comme [facility] Sodium Level (test code = 2951-2) 142 136-145 [facility] Hospitalerum or plasma potassium measurement (moles/volume)2021-05-25 06:05:00* Test Item Value Reference Range Interpretation Comme [facility] Potassium Level (test code = 2823-3) 3.8 3.5-5.1 [facility] Hospitalerum or plasma chloride measurement (moles/volume)2021-05-25 06:05:00* Test Item Value Reference Range Interpretation Comme [facility] Chloride Level (test code = 2075-0) 111 98-107 [facility] Hospitalerum or plasma carbon dioxide, total measurement (moles/volume)2021-05-25 06:05:00* Test Item Value Reference Range Interpretation Comme [facility] Carbon Dioxide Level (test c ode = 2028-9) 24 22- [facility] Hospitalerum or plasma anion ocv6462-91-07 06:05:00 * Test Item Value Reference Range Interpretation Comme [facility] Anion Gap (test code = 22411-9) 10.8 8-16 [facility] Hospitalerum or plasma urea nitrogen measurement (mass/volume)2021-05-25 06:05:00* Test Item Value Reference Range Interpretation Comme [facility] Blood Urea Nitrogen (test co de = 3094-0) 19 7-26 [facility] Hospitalerum or plasma creatinine measurement (mass/volume)2021-05-25 06:05:00* Test Item Value Reference Range Interpretation Comme [facility] Creatinine (test code = 2160-0) 0.73 0.57-1.11 [facility] Hospitalerum or plasma urea nitrogen/creatinine mass arzgj8467-98-58 06:05:00* Test Item Value Reference Range Interpretation Comme [facility] BUN/Creatinine Ratio (test c ode = 3097-3) 26 6-25 [facility] ClinicsEstimated glomerular filtration rate (GFR) kklgiyfmtqfah8442-81-34 06:05:00* Test Item Value Reference Range Interpretation Comme [facility] Estimat Glomerular Filtration Rate (test code = 425499232) 79 See_Comment [Automated mes marisabel] The system which generated this result transmitted reference range: 60-. The reference range was not used to interpret this result as normal/abnormal. [facility] ClinicsGlucose hxuhrzpqbbw7057-03-37 06:05:00* Test Item Value Reference Range Interpretation Comme [facility] Glucose Level (test code = DTS1351) 101 74-118 [facility] Hospitalerum or plasma calcium measurement (mass/volume)2021-05-25 06:05:00* Test Item Value Reference Range Interpretation Comme [facility] Calcium Level (test code = 99430-0) 8.9 8.4-10.2 [facility] Hospitalerum or plasma total bilirubin measurement (mass/volume)2021-05-25 06:05:00* Test Item Value Reference Range Interpretation Comme [facility] Total Bilirubin (test code = 1975-2) 0.6 0.2-1.2 [facility] Hospitalerum or plasma alanine aminotransferase measurement (enzymatic activity/volume)2021-05-25 06:05:00* Test Item Value Reference Range Interpretation Comme [facility] Alanine Aminotransferase (AL T/SGPT) (test code = 1742-6) 13 0-55 [facility] Hospitalerum or plasma protein measurement (mass/volume)2021-05-25 06:05:00* Test Item Value Reference Range Interpretation Comme [facility] Total Protein (test code = 2885-2) 6.3 6.5-8.1 [facility] Hospitalerum or plasma albumin measurement (mass/volume)2021-05-25 06:05:00* Test Item Value Reference Range Interpretation Comme [facility] Albumin (test code = 1751-7) 3.4 3.5-5.0 [facility] ClinicsPlasma globulin measurement (mass/volume) 2021-05-25 06:05:00* Test Item Value Reference Range Interpretation Comme [facility] Globulin (test code = 56344-5) 2.9 2.3-3.5 [facility]er[facility] or plasma albumin/globulin mass ratio 2021-05-25 06:05:00* Test Item Value Reference Range Interpretation Comme [facility] Albumin/Globulin Ratio (test code = 1759-0) 1.2 0.8-2.0 [facility]erum or plasma alkaline phosphatase measurement (enzymatic activity/volume)2021-05-25 06:05:00* Test Item Value Reference Range Interpretation Comme nts Alkaline Phosphatase (test c ode = 6768-6) 69 18-522 [facility] ClinicsCHEST SINGLE (PORTABLE)2021-05-24 17:26:00 [facility] : 1955 Sex: F [place] [address] Patient Name: HAYLEY KATZ MR #: [id number] : 1955 Age/Sex: 66/F Req#: [id number] [facility] Physician: Ordered by: Jayce Hurley MD Report #: [id number] Location: Room/Bed: Procedure: 2033-1204 DX/CHEST SINGLE (PORTABLE) Exam Date: 05/24/21 Exam Time: 165 REPORT STATUS: Signed Exam: CHEST SINGLE (PORTABLE) Date: 05/24/2021 5:25 PM Indication: Chest Pain Comparison: CXR 08/25/2019 FINDINGS: Lines/Tubes:EKG leads overlie the chest. Lungs:The lungs are well inflated. No focal consolidation or pulmonary edema. Pleura:No pleural effusion. No pneumothorax. Heart/Mediastinum:The cardiomediastinal silhouette is normal in size and contour. Bones/Soft Tissues: No acute osseous injury. Cervical spine fusion hardware. Abdomen: No free air below the diaphragm. IMPRESSION: No focal pneumonia or pulmonary edema. Signed by: Rosy Mccarthy on 05/24/2021 5:26 PM Dictated By: ROSY MCCARTHY MD 27 Transcribed By: [employer] on 05/24/211725 COPY TO: JAYCE HURLEY MD SARS-CoV-2 (COVID-19) RNA [Presence] in Respiratory specimen by JOEY with probe obgezdhtu9097-40-06 17:22:00* Test Item Value Reference Range Interpretation Comme nts Coronavirus (PCR) (test code = 44057-4) NOT DETECTED NEGATIVE [facility] ClinicsFluoroscopic procedure less than one hour atgnmsox1727-82-12 17:22:00* Test Item Value Reference Range Interpretation Comme nts Influenza Virus Type A RNA ( test code = Influenza Virus Type A RNA) NEGATIVE NEGATIVE [facility]- XR SHOULDER 2 + V [id number] 08:57:00 [facility])Name: HAYLEY KATZ : 1955 Sex: F FAX: Go Gould MD [phone] [place]: St: REG FAX: Lilly Ramirez MD Name: HAYLEY KATZ [facility] [place] : 1955 Age/S: 66/F [address] [address] Unit#: [id number] Loc: [facility] [place] [address] Phys: Go nSow MD Acct: [id number] Dis Date: Status: REG RCR PHONE #: [phone] Exam Date: 05/01/2021 08 FAX #: Reason: LEFT SHOULDER PAIN EXAMS: CPT CODE: [id number] XR SHOULDER 2 + [place] [address] HISTORY: Left shoulder pain. COMPARISON: March 28, 2021. Location: [facility]. 3 views of the left shoulder: Impacted and comminuted minimally displaced fracture of the greater tuberosity. No significant callus formation. Fracture lines are visible. Narrowed glenohumeral joint. Severely narrowed AC joint. Visualized scapula, glenoid and coracoid are normal. Visualized lungs are clear. Soft tissues are normal. IMPRESSION: Impacted comminutedminimally displaced fracture of the greater tuberosity demonstrating no change and no significant callus formation. at 0857 Reported andsigned by: Reilly Khan M.D. CC: Go Snow MD; Lilly Zarate Technologist: BONG PRASAD(R) Trnscrd Date/Time/By: 05/01/2021 (0857) : By: Han.TH4 Orig Print D/T: S: 05/01/2021 (0900)PAGE 1 Signed Report- XR ELBOW 3 + V [id number] 00:53:00 [facility])Name: HAYLEY KATZ : 1955 Sex: F Name: HAYLEY KATZ [facility] : 1955 Age/S:66 /F [address] [facility] Unit#:[id number] Loc: [place] [address] Phys: Luis A Mcarthur MD Dis Date: PHONE #: [phone] Status: REG ER FAX #: [phone] Exam Date: 03/29/2021 Reason: Pain s/p fall EXAMS: CPT CODE: [id number] XR ELBOW 3 + V LT [address] EXAMINATION: - XR ELBOW 3 + V LT LOCATION: H61 HISTORY/INDICATION: Pain s/p fall COMPARISON: None. FINDINGS: AP, oblique and lateral views of left elbow are submitted. There is no acute fracture or dislocation. There isno fat pad elevation to suggest joint effusion. There is mild soft tissue swelling in the posteriorelbow. IMPRESSION: 1. Mild soft tissue swelling in the posterior elbow without acute osseous abnormality. at 0053 Reported and signed by: Katelyn Stinson M.D. CC: Luis A Mcarthur MD; Lilly Zarate Technologist: Mayda Ramey(R)(CT)Trnscrpt Data: 03/29/2021 (0053) t.JOHNR.TH15 Orig Print D/T: S: 03/29/2021 (0056) PAGE 1 Signed Report- XR KNEE 3 V [id number] 00:53:00 [facility]Name: HAYLEY KATZ : 1955 Sex: F Name: HAYLEY KATZ [facility] : 1955 Age/S:66 /F [address] [facility] Unit#:[id number] [place]: [place] [address] Phys: Luis A Mcarthur MD Dis Date: PHONE #: [phone] Status: REG ER FAX #: [phone] Exam Date: 03/29/2021 Reason: Pain s/p fall EXAMS: CPT CODE: [id number] XR KNEE 3 V LT [address] EXAMINATION: - XR KNEE 3 V LT LOCATION: H 61 HISTORY/INDICATION: Pain s/p fall COMPARISON: None. TECHNIQUE: Frontal, lateral and oblique views of the left knee. FINDINGS: Joint spaces are preserved. No acute fracture or dislocation. No joint effusion. Unremarkable soft tissues. IMPRESSION: Unremarkable knee radiograph. at 0053 Reported and signed by: Katelyn Stinson M.D. CC: Luis A Mcarthur MD; Lilly Zarate Technologist: Mayda Ramey(Raegan)(CT) Trnscrpt Data: 03/29/2021 (0053) t.JOHNR.TH15 Orig Print D/T: S: 03/29/2021 (0057) PAGE 1 Signed Report- CT MAXIFAC W/O [id number] 00:52:00 [facility])Name: HAYLEY KATZ : 1955 Sex: F Name: HAYLEY KATZ [facility] : 1955 Age/S: 66 / F [address] [facility] Unit #: [id number] Loc: [place] [address] Phys: Luis A Mcarthur MD Acct: [id number] Dis Date: Status: REG ER PHONE #: [phone] Exam Date: 03/29/202141 FAX #: [phone] Reason: Pain s/p fall EXAMS: CPT CODE: [id number] CT MAXIFAC W/O CNT 95510 EXAM: - CT MAXIFAC W/O CNT LOCATION: [facility] CLINICAL HISTORY/INDICATION: Pain s/p fall COMPARISON: None TECHNIQUE: Axial CT images were obtained through the maxillofacial region without intravenous contrast administration.These were reviewed in both soft tissue and bone algorithms. Coronal and sagittal reformats were obtained from the axial data. This examination was performed according to our departmental dose optimization program, which includes automated exposure control, adjustment of the mA and/or kV according to patient size, and/or use of iterative reconstruction technique. FINDINGS: PARTIALLY IMAGED INTRACRANIAL STRUCTURES:No acute abnormality demonstrated. MASTOID AIR CELLS: Clear. ORBITS: Globes are int act. No retrobulbar or orbital hematoma. No orbital fractures.. PARANASAL SINUSES: Clear. SOFT TISSUES: No mass lesion or significant fat stranding. PAROTID AND SUBMANDIBULAR [...] PAGE 1 Signed Report (CONTINUED) Name: HAYLEY KATZ [facility] : 1955 Age/S: 66 / F [address] [facility] Unit #: [id number] Loc: [place] [address]Ghmf: Luis A Mcarthur MD Acct: [id number] Dis Date: Status: REG ER PHONE #: [phone] Exam Date: 03/29/2021 0042 FAX #: [phone] Reason: Pain s/p fall EXAMS: CPT CODE: [id number] CT MAXIFAC W/O CNT 65630 (Continued) at 0052 Reported and signed by: Katelyn Stinson M.D. CC: Luis A Mcarthur MD; Lilly Zarate Technologist:Елена Carlson)(CT) CTDI: DLP: Trnscb Date/Time: 03/29/2021 (51) tCARIR.TH15 Orig Print D/T: S: 03/29/2021 (54) PAGE 2 Signed Report- CT HEAD/BRAIN W/O [id number] 00:46:00[facility]Name: HAYLEY KATZ : 1955 Sex: F Name: HAYLEY KATZ [facility] : 1955 Age/S: 66 /F [address] [facility] Unit #: [id number] Loc: [place] [address] Phys: Luis A Mcarthur MD Acct: [id number] Dis Date: Status: REG ER PHONE #: [phone] Exam Date: 03/29/202141 FAX #: [phone] Reason: Pain s/p fall EXAMS: CPT CODE: [id number] CT HEAD/BRAIN W/O CONT 32797 Examination: No ncontrast head CT Indication: Status post fall Comparison: None Location: R16 Technique: Multiple CT images of the brain were obtained from the skull base to the vertex. No intravenous contrast was administered. One or more of the following dose reduction techniques were used: Automated exposure control, adjustment of the mA and/or kV according to patient size, and/or utilization of iterative reconstruction technique. Findings: There is prominence of the ventricles and sulci consistent with mild supratentorial cerebral volume loss. Remote Left frontal infarct is noted The basilar cisterns arepatent. There is no intracranial hemorrhage or mass [...] M.D. PAGE 1 Signed Report (CONTINUED) Name: JENHAYLEYBecky ALVARADOSOFYA [facility] : 1955 Age/S: 66 / F [address] [facility] Unit #: [id number] Loc: [place] [address] Phys: Luis A Mcarthur MD Acct: [id number] Dis Date: Status: REG ER PHONE #: [phone] Exam Date: 03/29/202141 FAX #: [phone] Reason: Pain s/p fall EXAMS: CPT CODE: [id number] CT HEAD/BRAIN W/O CONT 80598 (Continued) CC: Luis A Mcarthur MD; Lilly Zarate Technologist:Mayda BetheaR)(CT) CTDI: DLP: Trnscb Date/Time: 03/29/2021 (0046) NatashaR.[email or web address] Orig Print D/T: S: 03/29/2021 (0049) PAGE 2 Signed Report- XR SHOULDER 2 + V [id number] 23:52:00 [facility]Name: HAYLEY KATZ : 1955 Sex: F Name: HAYLEY KATZ [facility] : 1955 Age/S:66 /F [address] [facility] Unit#:[id number] Loc: [place] [address] Phys: Luis A Mcarthur MD Dis Date: PHONE #: [phone] Status: PRE ER FAX #: [phone] Exam Date: 03/28/2021 Reason: pain after fall EXAMS: CPT CODE: [id number] XR SHOULDER 2 + V LT [address] EXAMINATION: - XRSHOULDER 2 + V LT LOCATION: H 61 HISTORY/INDICATION: pain after fall COMPARISON: None. TECHNIQUE: 2frontal views in internal and external rotation and scapular Y view of the left shoulder. FINDINGS:There is an acute, nondisplaced, obliquely oriented fracture through the greater tuberosity of the humerus. There is no glenohumeral joint dislocation. The AC joint is normal. Imaged left lung is pearl r. There are postsurgical changes of ACDF in the lower cervical spine. IMPRESSION: 1. Acute, nondisplaced fracture through the greater tuberosity of the humerus. at 2352 Reported and signed by: Katelyn Stinson M.D. CC: Luis A Mcarthur MD; Lilly Zarate Technologist: Mayda Carlson)(CT) Trnscrpt Data: 03/28/2021 (9382) ThaddeusGV91Ftiw Print D/T: S: 03/28/2021 (8561) PAGE 1 Signed ReportSTREPTOCOCCUS PCR [id number] 07:55:00* Test Item Value Reference Range Interpretation Comme nts STREPTOCOCCUS DYSGALACTIAE (test code = STREPGC) NEGATIVE FOR G/C NEGATIVE STREPA MOLECULAR (test code = STREPAMOL) NEGATIVE FOR GRP A NEGATIVE - XR CHEST 1 [id number] 20:50:00Name: HAYLEY KATZ [facility] : 1955 Age/S:65 /F [address] [facility] Unit#:[id number] Loc: [place] [address] Phys: Luis A Mcarthur MD Date: PHONE #: [phone] Status: [facility] FAX #: [phone] Exam Date: 02/03/2020 Reason: Cough EXAMS: CPT CODE: [id number] XR CHEST 1 V 53120 EXAM: Chest X-ray, 1 view; CLINICAL HISTORY: [...] Barrios MD Technologist: URVASHI ESPINOSA RT(R),RDMS,CT Trnscrpt Da ta: 02/03/2020 (2049) ThaddeusGRW Orig Print D/T: S: 02/03/2020 (2052) PAGE 1 Signed ReportURINALYSIS [id number] 20:26:00* Test Item Value Reference Range Interpretation Comme nts UA COLOR (test code = COLU) LIGHT YELLOW YELLOW UA APPEARANCE (test code = APPU) CLEAR CLEAR UA GLUCOSE DIPSTICK (test code = DGLUU) norm mg/dL NEGATIVE UA BILIRUBIN DIPSTICK (test code = BILU) NEGATIVE mg/dL NEGATIVE UA KETONE DIPSTICK (test code = KETU) neg mg/dL NEGATIVE UA SPECIFIC GRAVITY (test code = SGU) 1.010 1.001-1.035 UA BLOOD DIPSTICK (test code = SAGAR) neg Óscar/uL NEGATIVE UA PH DIPSTICK (test code = FLORA) 8.0 5.0-8.0 UA PROTEIN DIPSTICK (test code = PROU) neg mg/dL Neg-15 UA UROBILINIOGEN DIPSTICK (test code = URO) norm mg/dL 0.0-0.2 UA NITRITE DIPSTICK (test code = MAGGIE) NEGATIVE NEGATIVE UA LEUKOCYTE ESTERASE DIPSTICK (test code = LEUU) 25 Bobby/uL (Trace) uL NEGATIVE A UA WBC (test code = WBCU) 0-5 per HPF 0-5 UA RBC (test code = RBCU) NONE SEEN per HPF 0-5 UA EPITHELIAL CELLS (test code = EPIU) Few (2-5/hpf) per HPF Few UA BACTERIA (test code = BACU) FEW per HPF NONE Urine Source? Clean CatchURINALYSIS [id number] 20:23:00* Test Item Value Reference Range Interpretation Comme nts UA COLOR (test code = COLU) LIGHT YELLOW YELLOW UA APPEARANCE (test code = APPU) CLEAR CLEAR UA GLUCOSE DIPSTICK (test code = DGLUU) norm mg/dL NEGATIVE UA BILIRUBIN DIPSTICK (test code = BILU) NEGATIVE mg/dL NEGATIVE UA KETONE DIPSTICK (test code = KETU) neg mg/dL NEGATIVE UA SPECIFIC GRAVITY (test code = SGU) 1.010 1.001-1.035 UA BLOOD DIPSTICK (test code = SAGAR) neg Óscar/uL NEGATIVE UA PH DIPSTICK (test code = FLORA) 8.0 5.0-8.0 UA PROTEIN DIPSTICK (test code = PROU) neg mg/dL Neg-15 UA UROBILINIOGEN DIPSTICK (test code = URO) norm mg/dL 0.0-0.2 UA NITRITE DIPSTICK (test code = MAGGIE) NEGATIVE NEGATIVE UA LEUKOCYTE ESTERASE DIPSTICK (test code = LEUU) 25 Bobby/uL (Trace) uL NEGATIVE A UA WBC (test code = WBCU) per HPF 0-5 UA RBC (test code = RBCU) per HPF 0-5 UA EPITHELIAL CELLS (test code = EPIU) per HPF Few UA BACTERIA (test code = BACU) per HPF NONE Urine Source? Clean CatchNovel Coronavirus 2019 [id number] 08:01:00* Test Item Value Reference Range Interpretation Comme nts Novel Coronavirus 2019 nCoV (test code = COVID19) NEGATIVE Does patient have the clinical criteria consistent with COVID-19? YIs the patient going to be discharged home? Y- CT ABD PELVIS W/[id number] 12:27:00 Name: HAYLEY KATZ [facility] : 1955 Age/S: 64 / F [address] [facility] Unit #: [id number] Loc: [place] [address] Phys: Jayme Kimball MD Acct: [id number] Dis Date: Status: REG ER PHONE #: [phone] Exam Date: 11/23/2019 1205 FAX #: [phone] Reason: upper abdominal discomfort and distension EXAMS: CPT CODE: [id number] CT ABD PELVIS W/CONT 96338 REASON FOR EXAM: upper abdominal discomfort and distension EXAM ORDER DATE: 11/23/2019 11:03 AM Ordering M.D.: Jayme Kimball MD PROCEDURE: Axial CT images were acquired through the abdomen/pelvis at 5mm intervals. Sagittal and coronal reformatted images were generated. Automated exposure control was utilized for this reduction. Phases of contrast: venous and delayed COMPARISON: CT of the abdomen and pelvis August 22, 2018 FINDINGS: Visualized thorax: Normal Hepatobiliary system: Prior cholecystectomy with prominence of the common bile duct. Hepatic parenchyma is within normal limits Pancreas: N ormal Spleen: Normal Adrenal glands: Normal Genitourinary system: [...] is seen at L5-S1 IMPRESSION: No acute intra- abdominal process PAGE 1 Signed Report (CONTINUED) Name:HAYLEY KATZ [facility] : 1955 Age/S: 64 / F [address] [facility] Unit #: [id number] Loc: [place] [address] Phys: Jayme Kimball MD Acct: [id number] Dis Date: Status: REG ER PHONE #: [phone] Exam Date: 11/23/2019 1205 FAX #: [phone] Reason: upper abdominal discomfort and distension EXAMS: CPT CODE: [id number] CT ABD PELVIS W/CONT 21485 (Continued) Location: [facility] at 1227 Reported and signed by: Fish Abbott MD CC: Morgan Huerta MD; Jayme Kimball MD Technologist:Melinda Fuentes CTDI: DLP:Trnscb Date/Time: 11/23/2019 (1227) t.SDR.RR31 Orig Print D/T: S: 11/23/2019 (1021) PAGE 2 Signed ReportURINALYSIS [id number] 11:41:00* Test Item Value Reference Range Interpretation Comme nts UA COLOR (test code = COLU) YELLOW YELLOW UA APPEARANCE (test code = APPU) CLEAR CLEAR UA GLUCOSE DIPSTICK (test code = DGLUU) norm mg/dL NEGATIVE UA BILIRUBIN DIPSTICK (test code = BILU) NEGATIVE mg/dL NEGATIVE UA KETONE DIPSTICK (test code = KETU) neg mg/dL NEGATIVE UA SPECIFIC GRAVITY (test code = SGU) 1.015 1.001-1.035 UA BLOOD DIPSTICK (test code = SAGAR) neg Óscar/uL NEGATIVE UA PH DIPSTICK (test code = FLORA) 6.5 5.0-8.0 UA PROTEIN DIPSTICK (test code = PROU) neg mg/dL Neg-15 UA UROBILINIOGEN DIPSTICK (test code = URO) norm mg/dL 0.0-0.2 UA NITRITE DIPSTICK (test code = MAGGIE) NEGATIVE NEGATIVE UA LEUKOCYTE ESTERASE DIPSTICK (test code = LEUU) 500 Bobby/uL (3+) uL NEGATIVE A UA WBC (test code = WBCU) 3-5 per HPF 0-5 UA RBC (test code = RBCU) 0-3 per HPF 0-5 UA EPITHELIAL CELLS (test code = EPIU) Few (2-5/hpf) per HPF Few UA BACTERIA (test code = BACU) MODERATE per HPF NONE A Urine Source? Clean CatchBASIC METABOLIC [id number] 11:31:00* Test Item Value Reference Range Interpretation Comme nts SODIUM (test code = NA) 144 mmol/L 136-145 N POTASSIUM (test code = K) 3.7 mmol/L 3.5-5.1 N CHLORIDE (test code = CL) 109 mmol/L 101-109 N CARBON DIOXIDE (test code = CO2) 27.3 mmol/L 21-32 N ANION GAP (test code = GAP) 11 mmol/L 10-20 N GLUCOSE (test code = GLU) 95 mg/dL 74-106 N BLOOD UREA NITROGEN (test code = BUN) 22 mg/dL 3-21 H GLOMERULAR FILTRATION RATE (test code = GFR) > 60 mL/min >=60 Estimated GFR by using Modified MDRD formula.Chronic kidney disease is defined as either kidney damageor GFR <60 mL/min/1.73 m2 for >3 months. CREATININE (test code = CREAT) 0.72 mg/dL 0.55-1.3 N BUN/CREATININE RATIO (test code = BUN/CREA) 30.6 10-20 H CALCIUM (test code = CA) 8.0 mg/dL 8.4-10.2 L HEPATIC FUNCTION [id number] 11:31:00* Test Item Value Reference Range Interpretation Comme nts TOTAL PROTEIN (test code = PROT) 6.9 g/dL 6.5-8.4 N ALBUMIN (test code = ALB) 3.2 g/dL 3.4-4.8 L GLOBULIN (test code = GLOB) 3.7 G/DL 1-10 N ALBUMIN/GLOBULIN RATIO (test code = A/G) 0.86 RATIO 0.75-1.50 N BILIRUBIN TOTAL (test code = BILT) 0.30 mg/dL 0.0-1.0 N BILIRUBIN DIRECT (test code = BILD) 0.00 mg/dL 0.0-0.30 N SGOT/AST (test code = AST) 24 U/L 6-32 N SGPT/ALT (test code = ALT) 29 U/L 12-78 N Note: Change in REFERENCE RANGE due to new reagent method. ALKALINE PHOSPHATASE TOTAL (test code = ALKP) 159 U/L 38-126 H [id number] 11:31:00* Test Item Value Reference Range Interpretation Comme nts LIPASE (test code = LIP) 223 U/L 128-270 N [id number] 11:31:00* Test Item Value Reference Range Interpretation Comme nts TROPONIN-I (test code = TROPI) <0.015 ng/mL 0.00-0.056 N URINALYSIS [id number] 11:26:00* Test Item Value Reference Range Interpretation Comme nts UA COLOR (test code = COLU) YELLOW YELLOW UA APPEARANCE (test code = APPU) CLEAR CLEAR UA GLUCOSE DIPSTICK (test code = DGLUU) norm mg/dL NEGATIVE UA BILIRUBIN DIPSTICK (test code = BILU) NEGATIVE mg/dL NEGATIVE UA KETONE DIPSTICK (test code = KETU) neg mg/dL NEGATIVE UA SPECIFIC GRAVITY (test code = SGU) 1.015 1.001-1.035 UA BLOOD DIPSTICK (test code = SAGAR) neg Óscar/uL NEGATIVE UA PH DIPSTICK (test code = FLORA) 6.5 5.0-8.0 UA PROTEIN DIPSTICK (test code = PROU) neg mg/dL Neg-15 UA UROBILINIOGEN DIPSTICK (test code = URO) norm mg/dL 0.0-0.2 UA NITRITE DIPSTICK (test code = MAGGIE) NEGATIVE NEGATIVE UA LEUKOCYTE ESTERASE DIPSTICK (test code = LEUU) 500 Bobby/uL (3+) uL NEGATIVE A UA WBC (test code = WBCU) per HPF 0-5 UA RBC (test code = RBCU) per HPF 0-5 UA EPITHELIAL CELLS (test code = EPIU) per HPF Few UA BACTERIA (test code = BACU) per HPF NONE Urine Source? Clean CatchCBC W/O [id number] 11:13:00* Test Item Value Reference Range Interpretation Comme nts WHITE BLOOD CELL (test code = WBC) 7.0 K/mm3 4.5-12.5 N RED BLOOD CELL (test code = RBC) 3.85 mill/mm3 3.7-5.2 N HEMOGLOBIN (test code = HGB) 11.9 gram/dL 11.5-15.5 N HEMATOCRIT (test code = HCT) 35.5 % 36.0-46.0 L MEAN CELL VOLUME (test code = MCV) 92.2 fL 80-98 N MEAN CELL HGB (test code = MCH) 30.9 picogram 27.0-33.0 N MEAN CELL HGB CONCETRATION (test code = MCHC) 33.5 gram/dL 33.0-36.0 N RED CELL DISTRIBUTION WIDTH (test code = RDW) 12.7 % 11.6-16.2 N RED CELL DISTRIBUTION WIDTH SD (test code = RDW-SD) 43.1 fL 37.0-51.0 N PLATELET COUNT (test code = PLT) 227 K/mm3 150-450 N MEAN PLATELET VOLUME (test c ode = MPV) 9.5 fL 6.7-11.0 N [id number] 17:51:00* Test Item Value Reference Range Interpretation Comme nts TROPONIN-I (test code = TROPI) <0.015 ng/mL 0-0.045 N BASIC METABOLIC [id number] 17:50:00* Test Item Value Reference Range Interpretation Comme nts SODIUM (test code = NA) 146 mmol/L 136-145 H POTASSIUM (test code = K) 4.1 mmol/L 3.5-5.1 N CHLORIDE (test code = CL) 111 mmol/L 101-109 H CARBON DIOXIDE (test code = CO2) 28.3 mmol/L 21-32 N ANION GAP (test code = GAP) 11 mmol/L 10-20 N GLUCOSE (test code = GLU) 101 mg/dL 74-106 N BLOOD UREA NITROGEN (test code = BUN) 26 mg/dL 3-21 H GLOMERULAR FILTRATION RATE (test code = GFR) > 60 mL/min >=60 Estimated GFR by using Modified MDRD formula.Chronic kidney disease is defined as either kidney damageor GFR <60 mL/min/1.73 m2 for >3 months. CREATININE (test code = CREAT) 0.71 mg/dL 0.55-1.3 N BUN/CREATININE RATIO (test code = BUN/CREA) 36.6 10-20 H CALCIUM (test code = CA) 7.9 mg/dL 8.4-10.2 L HEPATIC FUNCTION [id number] 17:50:00* Test Item Value Reference Range Interpretation Comme nts TOTAL PROTEIN (test code = PROT) 6.4 g/dL 6.5-8.4 L ALBUMIN (test code = ALB) 3.0 g/dL 3.4-4.8 L GLOBULIN (test code = GLOB) 3.4 G/DL 1-10 N ALBUMIN/GLOBULIN RATIO (test code = A/G) 0.88 RATIO 0.75-1.50 N BILIRUBIN TOTAL (test code = BILT) 0.20 mg/dL 0.0-1.0 N BILIRUBIN DIRECT (test code = BILD) 0.00 mg/dL 0.0-0.30 N SGOT/AST (test code = AST) 26 U/L 6-32 N SGPT/ALT (test code = ALT) 27 U/L 12-78 N Note: Change in REFERENCE RANGE due to new reagent method. ALKALINE PHOSPHATASE TOTAL (test code = ALKP) 118 U/L 38-126 N [id number] 17:50:00* Test Item Value Reference Range Interpretation Comme nts LIPASE (test code = LIP) 155 U/L 128-270 N URINALYSIS [id number] 17:45:00* Test Item Value Reference Range Interpretation Comme nts UA COLOR (test code = COLU) YELLOW YELLOW UA APPEARANCE (test code = APPU) SLIGHT CLOUDY CLEAR A UA GLUCOSE DIPSTICK (test code = DGLUU) norm mg/dL NEGATIVE UA BILIRUBIN DIPSTICK (test code = BILU) NEGATIVE mg/dL NEGATIVE UA KETONE DIPSTICK (test code = KETU) neg mg/dL NEGATIVE UA SPECIFIC GRAVITY (test code = SGU) 1.005 1.001-1.035 UA BLOOD DIPSTICK (test code = SAGAR) neg Óscar/uL NEGATIVE UA PH DIPSTICK (test code = FLORA) 8.0 5.0-8.0 UA PROTEIN DIPSTICK (test code = PROU) neg mg/dL Neg-15 UA UROBILINIOGEN DIPSTICK (test code = URO) norm mg/dL 0.0-0.2 UA NITRITE DIPSTICK (test code = MAGGIE) NEGATIVE NEGATIVE UA LEUKOCYTE ESTERASE DIPSTICK (test code = LEUU) 500 Bobby/uL (3+) uL NEGATIVE A UA WBC (test code = WBCU) 40-50 per HPF 0-5 A UA RBC (test code = RBCU) NONE SEEN per HPF 0-5 UA EPITHELIAL CELLS (test code = EPIU) Rare (0-1/hpf) per HPF Few UA BACTERIA (test code = BACU) TRACE per HPF NONE UA MUCUS (test code = MUCU) FEW per LPF NONE-FEW Urine Source? Clean CatchURINALYSIS [id number] 17:39:00* Test Item Value Reference Range Interpretation Comme nts UA COLOR (test code = COLU) YELLOW YELLOW UA APPEARANCE (test code = APPU) SLIGHT CLOUDY CLEAR A UA GLUCOSE DIPSTICK (test code = DGLUU) norm mg/dL NEGATIVE UA BILIRUBIN DIPSTICK (test code = BILU) NEGATIVE mg/dL NEGATIVE UA KETONE DIPSTICK (test code = KETU) neg mg/dL NEGATIVE UA SPECIFIC GRAVITY (test code = SGU) 1.005 1.001-1.035 UA BLOOD DIPSTICK (test code = SAGAR) neg Óscar/uL NEGATIVE UA PH DIPSTICK (test code = FLORA) 8.0 5.0-8.0 UA PROTEIN DIPSTICK (test code = PROU) neg mg/dL Neg-15 UA UROBILINIOGEN DIPSTICK (test code = URO) norm mg/dL 0.0-0.2 UA NITRITE DIPSTICK (test code = MAGGIE) NEGATIVE NEGATIVE UA LEUKOCYTE ESTERASE DIPSTICK (test code = LEUU) 500 Bobby/uL (3+) uL NEGATIVE A UA WBC (test code = WBCU) per HPF 0-5 UA RBC (test code = RBCU) per HPF 0-5 UA EPITHELIAL CELLS (test code = EPIU) per HPF Few UA BACTERIA (test code = BACU) per HPF NONE Urine Source? Clean CatchB-TYPE NATRIURETIC [id number] 17:39:00* Test Item Value Reference Range Interpretation Comme nts B-TYPE NATRIURETIC PEPTIDE ( test code = BNP) 41.0 pg/mL 0-100 N - XR ABDOMEN [id number] 17:39:00Name: HAYLEY KATZ [facility] : 1955 Age/S:64 /F [address] [facility] Unit#:[id number] Loc: [place] [address] Phys: Jayme Kimball MD Dis Date: PHONE #: [phone] Status: REG ER FAX #: [phone] Exam Date: 11/19/2019 Reason: diarrhea EXAMS: CPT CODE: [id number] XR ABDOMEN 2V 12389 HISTORY: Abdominal pain and diarrhea. COMPARISON: Chest x-ray from April 10, [address] scan from August 22, 2018. Location: [facility]. Single viewchest: No acute infiltrates, effusion or congestion is [...] Reilly Khan M.D. CC: Jayme Kimball MD; Lilly Zarate Technologist: RAYO REDDING RT(R),CT Trnscrpt Data: 11/19/2019 (1739) t.SDR.4 Orig Print D/T: S: 11/19/2019 (3572) PAGE 1 Signed Report- XR CHEST 1 [id number] 17:39:00Name: HAYLEY KATZ [facility] : 1955 Age/S:64 /F [address] [facility] Unit#:[id number] Loc: [place] [address] Phys: Jayme Kimball MD Dis Date: PHONE #: [phone] Status: REG ER FAX #: [phone] Exam Date: 11/19/2019 Reason: sob EXAMS: CPT CODE: [id number] XR CHEST 1 V 26182 HISTORY: Abdominal pain and diarrhea. COMPARISON: Chest x-ray from April 10, [address] scan from August 22, 2018. Location: [facility]. Single view chest:No acute infiltrates, effusion or congestion is noted. Lung scarring. The cardiac and mediastinal silhouette are within normal limits. IMPRESSION: No acute infiltrates, effusion or congestion. 2 view abdomen: No free air. No bowel obstruction. Patient is post cholecystectomy. Scattered fecal material. No pathologic constipation is. DJD of the lower lumbar spine. IMPRESSION: No free air or obstruction. at 1738 Reported and signed by: Reilly Khan M.D. CC: Jayme Kimball MD; Lilly Zarate Technologist: RAYO REDDING RT(R),CT Trnscrpt Data: 11/19/2019 (1739) t.SDR.TH4 Orig Print D/T: S: 11/19/2019 (5064) PAGE 1 Signed ReportBASIC METABOLIC [id number] 17:36:00* Test Item Value Reference Range Interpretation Comme nts SODIUM (test code = NA) 146 mmol/L 136-145 H POTASSIUM (test code = K) 4.1 mmol/L 3.5-5.1 N CHLORIDE (test code = CL) 111 mmol/L 101-109 H CARBON DIOXIDE (test code = CO2) 28.3 mmol/L 21-32 N ANION GAP (test code = GAP) 11 mmol/L 10-20 N GLUCOSE (test code = GLU) 101 mg/dL 74-106 N BLOOD UREA NITROGEN (test code = BUN) 26 mg/dL 3-21 H GLOMERULAR FILTRATION RATE (test code = GFR) > 60 mL/min >=60 Estimated GFR by using Modified MDRD formula.Chronic kidney disease is defined as either kidney damageor GFR <60 mL/min/1.73 m2 for >3 months. CREATININE (test code = CREAT) 0.71 mg/dL 0.55-1.3 N BUN/CREATININE RATIO (test code = BUN/CREA) 36.6 10-20 H CALCIUM (test code = CA) 7.9 mg/dL 8.4-10.2 L HEPATIC FUNCTION [id number] 17:36:00* Test Item Value Reference Range Interpretation Comme nts TOTAL PROTEIN (test code = PROT) gram/dL 6.4-8.2 ALBUMIN (test code = ALB) g/dL 3.4-5.0 GLOBULIN (test code = GLOB) g/dL 2.7-4.2 ALBUMIN/GLOBULIN RATIO (test code = A/G) 0.75-1.50 BILIRUBIN TOTAL (test code = BILT) mg/dL 0.2-1.2 BILIRUBIN DIRECT (test code = BILD) mg/dL 0.0-0.20 SGOT/AST (test code = AST) IUnit/L 15-37 SGPT/ALT (test code = ALT) U/L 10-69 ALKALINE PHOSPHATASE TOTAL ( test code = ALKP) IUnit/L 45-117 [id number] 17:36:00* Test Item Value Reference Range Interpretation Comme nts LIPASE (test code = LIP) Unit/L 144-286 CBC W/O [id number] 17:23:00* Test Item Value Reference Range Interpretation Comme nts WHITE BLOOD CELL (test code = WBC) 9.8 K/mm3 4.5-12.5 N RED BLOOD CELL (test code = RBC) 4.02 mill/mm3 3.7-5.2 N HEMOGLOBIN (test code = HGB) 12.2 gram/dL 11.5-15.5 N HEMATOCRIT (test code = HCT) 37.6 % 36.0-46.0 N MEAN CELL VOLUME (test code = MCV) 93.5 fL 80-98 N MEAN CELL HGB (test code = MCH) 30.3 picogram 27.0-33.0 N MEAN CELL HGB CONCETRATION (test code = MCHC) 32.4 gram/dL 33.0-36.0 L RED CELL DISTRIBUTION WIDTH (test code = RDW) 12.9 % 11.6-16.2 N RED CELL DISTRIBUTION WIDTH SD (test code = RDW-SD) 45.0 fL 37.0-51.0 N PLATELET COUNT (test code = PLT) 253 K/mm3 150-450 N MEAN PLATELET VOLUME (test c ode = MPV) 9.2 fL 6.7-11.0 N FOOT LEFT AP [id number] 10:54:00[facility] [address] [address] Patient Name: HAYLEY KATZ MR #: [id number] : 1955 Age/Sex: 64/F Req #: [id number] Adm Physician: Ordered by: LITO AMBROCIO M.D. Report #: [id number] Location: [facility] Room/Bed: Procedure: [id number] DX/FOOT LEFT AP LAT Exam Date: 09/24/19 [...] MCCARTHY MD 1054 Transcribed By: KEY on 09/24/19 1054 COPY TO: LITO AMBROCIO M.D.Serum or plasma sodium measurement (moles/volume)2019-08-27 05:23:00* Test Item Value Reference Range Interpretation Comme nts Sodium Level (test code = 2951-2) 140 136-145 [facility] ([facility]oles/volume)2019-08-27 05:23:00* Test Item Value Reference Range Interpretation Comme nts Potassium Level (test code = 2823-3) 4.2 3.5-5.1 [facility] chloride measurement (moles/volume)2019-08-27 05:23:00* Test Item Value Reference Range Interpretation Comme [facility] Chloride Level (test code = 2075-0) 110 98-107 [facility] carbon dioxide, total measurement (moles/volume)2019-08-27 05:23:00* Test Item Value Reference Range Interpretation Comme [facility] Carbon Dioxide Level (test c ode = 2028-9) 24 22-29 [facility] anion [id number] 05:23:00 * Test Item Value Reference Range Interpretation Comme [facility] Anion Gap (test code = 78881-5) 10.2 8-16 [facility] urea nitrogen measurement (mass/volume)2019-08-27 05:23:00* Test Item Value Reference Range Interpretation Comme [facility] Blood Urea Nitrogen (test co de = 3094-0) 23 7-26 [facility] creatinine measurement (mass/volume)2019-08-27 05:23:00* Test Item Value Reference Range Interpretation Comme [facility] Creatinine (test code = 2160-0) 0.69 0.57-1.11 [facility] urea nitrogen/creatinine mass [id number] 05:23:00* Test Item Value Reference Range Interpretation Comme [facility] BUN/Creatinine Ratio (test c ode = 3097-3) 33 6-25 [facility] ClinicsEstimated glomerular filtration rate (GFR) [id number] 05:23:00* Test Item Value Reference Range Interpretation Comme [facility] Estimat Glomerular Filtratio n Rate (test code = 921667241) > 60 >60 Ranges were taken from the National Kidney Disease Education Program and the National Kidney Foundation literature.Reference ranges:60 or greater: Enikaj06- 59 (for 3 consecutive months): Chronic kidney disease 15 or less: Kidney failure [facility] ClinicsGlucose [id number] 05:23:00* Test Item Value Reference Range Interpretation Comme [facility] Glucose Level (test code = IWN0631) 97 74-118 [facility] calcium measurement (mass/volume)2019-08-27 05:23:00* Test Item Value Reference Range Interpretation Comme [facility] Calcium Level (test code = 02595-0) 8.8 8.4-10.2 [facility] creatine kinase measurement (enzymatic activity/volume)2019-08-26 13:50:00* Test Item Value Reference Range Interpretation Comme [facility] Creatine Kinase (test code = 2157-6) 55 29-168 [facility] creatine kinase MB measurement (mass/volume)2019-08-26 13:50:00* Test Item Value Reference Range Interpretation Comme [facility] Creatine Kinase MB (test cod e = 34067-6) 0.80 0-5.0 [facility] ClinicsTroponin I measurement by highly sensitive enzyme [id number] 13:50:00* Test Item Value Reference Range Interpretation Comme [facility] Troponin I (test code = 10447-6) < 0.001 0-0.300 [facility] leukocytes automated count (number/volume)2019-08-26 05:50:00* Test Item Value Reference Range Interpretation Comme [facility] White Blood Count (test code = 6690-2) 5.74 4.8-10.8 [facility] ClinicsBlood erythrocytes automated count (number/volume)2019-08-26 05:50:00* Test Item Value Reference Range Interpretation Comme [facility] Red Blood Count (test code = 789-8) 4.09 3.6-5.1 [facility] ClinicsBlood hemoglobin measurement (moles/volume) 2019-08-26 05:50:00* Test Item Value Reference Range Interpretation Comme [facility] Hemoglobin (test code = 44914-7) 12.8 12.0-16.0 [facility] ClinicsAutomated blood hematocrit (volume fraction) 2019-08-26 05:50:00* Test Item Value Reference Range Interpretation Comme [facility] Hematocrit (test code = 4544-3) 37.2 34.2-44.1 [facility]icsAutom[facility] erythrocyte mean corpuscular volume 2019-08-26 05:50:00* Test Item Value Reference Range Interpretation Comme [facility] Mean Corpuscular Volume (gold t code = 787-2) 91.0 81-99 [facility]icsAutom[facility] erythrocyte mean corpuscular hemoglobin (mass per erythrocyte)2019-08-26 05:50:00* Test Item Value Reference Range Interpretation Comme [facility] Mean Corpuscular Hemoglobin (test code = 785-6) 31.3 28-32 [facility]icsAutom[facility] erythrocyte mean corpuscular hemoglobin concentration measurement (mass/volume)2019-08-26 05:50:00* Test Item Value Reference Range Interpretation Comme nts Mean Corpuscular Hemoglobin Concent (test code = 786-4) 34.4 31-35 [facility] ClinicsRDW [id number] 05:50:00* Test Item Value Reference Range Interpretation Comme [facility] Red Cell Distribution Width (test code = 63787-3) 13.0 11.7-14.4 [facility]icsAutom[facility] blood platelet count (count/volume) 2019-08-26 05:50:00* Test Item Value Reference Range Interpretation Comme [facility] Platelet Count (test code = 777-3) 214 140-360 [facility]icsAutom[facility] blood segmented neutrophil count as percentage of total [id number] 05:50:00* Test Item Value Reference Range Interpretation Comme nts Neutrophils (%) (Auto) (test code = 28258-0) 45.9 38.7-80.0 [facility]icsAutom[facility] blood lymphocyte count as percentage ot total [id number] 05:50:00* Test Item Value Reference Range Interpretation Comme nts Lymphocytes (%) (Auto) (test code = 736-9) 38.9 18.0-39.1 [facility]icsAutom[facility] blood monocyte count as percentage of total [id number] 05:50:00* Test Item Value Reference Range Interpretation Comme nts Monocytes (%) (Auto) (test c ode = 5905-5) 10.6 4.4-11.3 [facility]icsAutom[facility] blood eosinophil count as percentage of total [id number] 05:50:00* Test Item Value Reference Range Interpretation Comme nts Eosinophils (%) (Auto) (test code = 713-8) 3.1 0.0-6.0 [facility]icsAutom[facility] blood basophil count as percentage of total [id number] 05:50:00* Test Item Value Reference Range Interpretation Comme nts Basophils (%) (Auto) (test c ode = 706-2) 1.2 0.0-1.0 [facility] ClinicsAutomated blood neutrophil bknsf2928-78-36 05:50:00* Test Item Value Reference Range Interpretation Comme nts Neutrophils # (Auto) (test c ode = 751-8) 2.6 2.1-6.9 [facility] ClinicsBlood lymphocytes count (number/volume) 2019-08-26 05:50:00* Test Item Value Reference Range Interpretation Comme nts Lymphocytes # (Auto) (test c ode = 00779-8) 2.2 1.0-3.2 [facility] ClinicsBlood monocytes automated count (number/volume)2019-08-26 05:50:00* Test Item Value Reference Range Interpretation Comme nts Monocytes # (Auto) (test code = 742-7) 0.6 0.2-0.8 [facility] ClinicsAutomated blood eosinophil hrton6470-32-29 05:50:00* Test Item Value Reference Range Interpretation Comme nts Eosinophils # (Auto) (test c ode = 711-2) 0.2 0.0-0.4 [facility] ClinicsAutomated blood basophil count (count/volume) 2019-08-26 05:50:00* Test Item Value Reference Range Interpretation Comme nts Basophils # (Auto) (test code = 704-7) 0.1 0.0-0.1 [facility] plasma total bilirubin measurement (mass/volume)2019-08-26 05:50:00* Test Item Value Reference Range Interpretation Comme nts Total Bilirubin (test code = 1975-2) 0.5 0.2-1.2 [facility] ClinicsFluoroscopic procedure less than one hour ertscdxx2331-92-57 05:50:00* Test Item Value Reference Range Interpretation Comme nts Aspartate Amino Transf (AST/ SGOT) (test code = Aspartate Amino Transf (AST/SGOT)) 23 5-34 [facility]erum or plasma alanine aminotransferase measurement (enzymatic activity/volume)2019-08-26 05:50:00* Test Item Value Reference Range Interpretation Comme [facility] Alanine Aminotransferase (AL T/SGPT) (test code = 1742-6) 14 0-55 [facility] Hospitalerum or plasma protein measurement (mass/volume)2019-08-26 05:50:00* Test Item Value Reference Range Interpretation Comme [facility] Total Protein (test code = 2885-2) 6.4 6.5-8.1 [facility] Hospitalerum or plasma albumin measurement (mass/volume)2019-08-26 05:50:00* Test Item Value Reference Range Interpretation Comme [facility] Albumin (test code = 1751-7) 3.3 3.5-5.0 [facility] ClinicsPlasma globulin measurement (mass/volume) 2019-08-26 05:50:00* Test Item Value Reference Range Interpretation Comme [facility] Globulin (test code = 87735-1) 3.1 2.3-3.5 [facility] Hospitalerum or plasma albumin/globulin mass ratio 2019-08-26 05:50:00* Test Item Value Reference Range Interpretation Comme [facility] Albumin/Globulin Ratio (test code = 1759-0) 1.1 0.8-2.0 [facility] Hospitalerum or plasma alkaline phosphatase measurement (enzymatic activity/volume)2019-08-26 05:50:00* Test Item Value Reference Range Interpretation Comme [facility] Alkaline Phosphatase (test c ode = 6768-6) 117 40-150 [facility] Hospitalerum or plasma triglyceride measurement (mass/volume)2019-08-26 05:50:00* Test Item Value Reference Range Interpretation Comme [facility] Triglycerides Level (test co de = 2571-8) 69 0-149 [facility] Hospitalerum or plasma cholesterol measurement (mass/volume)2019-08-26 05:50:00* Test Item Value Reference Range Interpretation Comme [facility] Cholesterol Level (test code = 2093-3) 151 0-199 Less than 200 mg/dL Low Crlx345 - 239 mg/dL Borderline Dmik057 mg/dl and greater High RiskEl [facility]o [facility] Hospitalerum or plasma cholesterol in LDL measurement (mass/volume)2019-08-26 05:50:00* Test Item Value Reference Range Interpretation Comme [facility] LDL Cholesterol (test code = 2089-1) 80 60-130 [facility]erum or plasma cholesterol in HDL measurement (mass/volume)2019-08-26 05:50:00* Test Item Value Reference Range Interpretation Comme [facility] HDL Cholesterol (test code = 2085-9) 57 40-60 [facility] Hospitalerum or plasma total cholesterol/cholesterol in HDL mass hetlx5063-73-97 05:50:00* Test Item Value Reference Range Interpretation Comme [facility] Cholesterol/HDL Ratio (test code = 9830-1) 2.6 3.0-3.6 [facility] ClinicsCT CHEST L4797-31-61 16:18:00[facility] [address] [address] PatientName: HAYLEY KATZ MR #: [id number] : 1955 Age/Sex: 64/F Req #: [id number] Adm Physician: KUN NOVAK MD Ordered by: ALEJANDRO SPENCE MD Report #: [id number] Location: [facility] Room/Bed: [place] [address] Procedure: [id number] CT/CT CHEST W Exam Date: 08/25/19 Exam [...] the limits set by the Radiation Protocol Co mmittee ([facility]). FINDINGS: LINES/ TUBES: None. LUNGS AND AIRWAYS: 0.6 cm pulmonary nodule is seen inthe left lower lobe (series 3, image 86). [...] KEY on 08/25/191640 COPY TO: ALEJANDRO SPENCE MDCHEST SINGLE (PORTABLE)2019-08-25 14:27:[address] [address] PatientName: HAYLEY KATZ MR #: [id number] : 1955 Age/Sex: 64/F Req #: [id number] Adm Physician: Ordered by: AISHA VIERA CLINICAL RESEARCH TECH Report #: [id number] Location: ER Room/Bed: _ Procedure: [id number] DX/CHEST SINGLE (PORTABLE) Exam Date: 08/25/19 Exam [...] MD 26 Transcribed By: KEY on 08/25/191426 COPYTO: AISHA VIERA NP Prothrombin time (PT) in platelet poor plasma by coagulation dtlwn8225-48-78 13:15:00* Test Item Value Reference Range Interpretation Comme [facility] Prothrombin Time (test code = 5902-2) 12.1 11.9-14.5 [facility] ClinicsINR in Platelet poor plasma by Coagulation xowcj0481-04-43 13:15:00* Test Item Value Reference Range Interpretation Comme [facility] Prothromb Time International Ratio (test code = 6301-6) 0.85 Oral Anticoagulant Therapy INR Values:1. Low Intensity Therapy 1.5 - 2.02. Moderate Intensity Therapy 2.0 - 3.03. High Intensity Therapy(1) 2.5 - 3.54. High Intensity Therapy(2) 3.0 - 4.05. Panic Value INR > 5.0[facility] ClinicsActivated partial thromboplastin time (aPTT) in platelet poor plasma by coagulation qedso1960-99-39 13:15:00* Test Item Value Reference Range Interpretation Comme [facility] Activated Partial Thrombopla st Time (test code = 15317-2) 30.1 23.8-35.5 [facility] ClinicsBNP Axl-fVpy7673-54-29 13:15:00* Test Item Value Reference Range Interpretation Comme [facility] B-Type Natriuretic Peptide ( test code = 76580-8) 56.3 0-100 [facility] ClinicsUrine color atgrkwuyivfxi6544-78-39 12:56:00 * Test Item Value Reference Range Interpretation Comme nts Urine Color (test code = 5778-6) YELLOW YELLOW [facility] ClinicsUrine ktxtftn1314-63-04 12:56:00* Test Item Value Reference Range Interpretation Comme nts Urine Clarity (test code = 44333-7) CLEAR CLEAR [facility] Hospitalpecific gravity of Urine by Test strip 2019-08-25 12:56:00* Test Item Value Reference Range Interpretation Comme nts Urine Specific [place] (test code = 5811-5) 1.025 1.010-1.025 [facility] ClinicsUrine pH measurement by automated test strip 2019-08-25 12:56:00* Test Item Value Reference Range Interpretation Comme nts Urine pH (test code = 70975-7) 7 5-7 [facility] ClinicsUrine leukocyte esterase detection by rdvixxnd1585-01-35 12:56:00* Test Item Value Reference Range Interpretation Comme [facility] Urine Leukocyte Esterase (te st code = 5799-2) NEGATIVE NEGATIVE [facility] ClinicsUrine nitrite uwrhjqmmy2052-11-65 12:56:00* Test Item Value Reference Range Interpretation Comme [facility] Urine Nitrite (test code = 51339-1) NEGATIVE NEGATIVE [facility] ClinicsUrine protein measurement by test strip (mass/volume)2019-08-25 12:56:00* Test Item Value Reference Range Interpretation Comme [facility] Urine Protein (test code = 5804-0) NEGATIVE NEGATIVE [facility] ClinicsUrine glucose abaufovpy5194-74-71 12:56:00* Test Item Value Reference Range Interpretation Comme [facility] Urine Glucose (UA) (test cod e = 2349-9) NEGATIVE NEGATIVE [facility] ClinicsUrine ketones detection by automated test lgplb8065-18-04 12:56:00* Test Item Value Reference Range Interpretation Comme nts Urine Ketones (test code = 60354-3) NEGATIVE NEGATIVE [facility] ClinicsUrine urobilinogen measurement by test strip (mass/volume)2019-08-25 12:56:00* Test Item Value Reference Range Interpretation Comme [facility] Urine Urobilinogen (test cod e = 88537-0) 0.2 0.2-1 [facility] ClinicsUrine total bilirubin measurement (mass/volume)2019-08-25 12:56:00* Test Item Value Reference Range Interpretation Comme nts Urine Bilirubin (test code = 1978-6) NEGATIVE NEGATIVE [facility] ClinicsUrine erythrocytes wqmdbjuyp7792-08-02 12:56:00* Test Item Value Reference Range Interpretation Comme nts Urine Blood (test code = 16648-8) NEGATIVE NEGATIVE [facility] ClinicsAutomated urine sediment leukocyte count by microscopy (number/high power field)2019-08-25 12:56:00* Test Item Value Reference Range Interpretation Comme nts Urine WBC (test code = 5821-4) NONE 0-5 [facility] ClinicsErythrocytes detection in urine sediment by light ycstkietjn7666-16-00 12:56:00* Test Item Value Reference Range Interpretation Comme nts Urine RBC (test code = 19989-8) NONE 0-5 [facility] ClinicsBacteria detection in urine sediment by light ejkgaegwye7269-20-26 12:56:00* Test Item Value Reference Range Interpretation Comme [facility] Urine Bacteria (test code = 37628-6) NONE NONE [facility] ClinicsEpithelial cells detection in urine sediment by light rknwpagacq3180-48-68 12:56:00* Test Item Value Reference Range Interpretation Comme nts Urine Epithelial Cells (test code = 37819-7) RARE NONE [facility] ClinicsPhosphorus Rbeeb4218-90-52 06:36:00* Test Item Value Reference Range Interpretation Comme nts Phosphorus Level (test code = ZZU5771) 4.3 2.3-4.7 [facility] ClinicsMagnesium Ubhog8726-72-82 06:36:00* Test Item Value Reference Range Interpretation Comme nts Magnesium Level (test code = 06750-9) 2.0 1.3-2.1 [facility] ClinicsPhosphorus cjmijvdjqmb9227-60-60 05:40:00* Test Item Value Reference Range Interpretation Comme nts Phosphorus Level (test code = KZB0841) 4.3 2.3-4.7 [facility] Hospitalerum or plasma magnesium measurement (mass/volume)2019-07-16 05:40:00* Test Item Value Reference Range Interpretation Comme nts Magnesium Level (test code = 17316-0) 2.0 1.3-2.1 [facility] ClinicsInfluenza Virus Types A,B Wowurbl9185-56-06 11:58:00* Test Item Value Reference Range Interpretation Comme nts Influenza Virus Types A,B Yahaira tigdona (test code = 50032-6) NEGATIVE NEGATIVE [facility] ClinicsInfluenza virus A and B antigen identification by etlnokoxtpdjxptlra5113-40-69 10:50:00* Test Item Value Reference Range Interpretation Comme nts Influenza Virus Types A,B An tigen (test code = 21856-0) NEGATIVE NEGATIVE [facility] ClinicsCHEST SINGLE (PORTABLE)2019-07-15 06:57:[address] [address] Patient Name: HAYLEY KATZ MR #: [id number] : 1955 Age/Sex: 64/F Req #: [id number] Adm Physician: KUN NOVAK MD Ordered by: AISHA VIERA CLINICAL RESEARCH TECH Report #: [id number] Location: MED/SURG3 Room/Bed: 2961 Procedure: [id number] DX/CHEST SINGLE (PORTABLE) Exam Date: 07/15/19 Exam [...] Signed by: Dr. Anabel Ambrose M.D. on 6:59 AM Dictated By: DINORAH AMBROSE MD, MD 8 Transcribed By: KEY on 07/15/19658 COPY TO: AISHA VIERA NPCreatine Svbbzi8727-17-50 06:44:00* Test Item Value Reference Range Interpretation Comme nts Creatine Kinase (test code = 2157-6) 48 29-168 [facility] Hospitalodium Pbqdc3389-87-02 06:32:00* Test Item Value Reference Range Interpretation Comme nts Sodium Level (test code = 2951-2) 142 136-145 [facility] ClinicsPotassium Rtxco5254-85-14 06:32:00* Test Item Value Reference Range Interpretation Comme nts Potassium Level (test code = 2823-3) 3.8 3.5-5.1 [facility] ClinicsChloride Ozjwf4429-26-11 06:32:00* Test Item Value Reference Range Interpretation Comme nts Chloride Level (test code = 2075-0) 111 98-107 H [facility] ClinicsCarbon Dioxide Hjbzr8650-85-09 06:32:00* Test Item Value Reference Range Interpretation Comme nts Carbon Dioxide Level (test c ode = 8-9) 23 22-29 [facility] ClinicsAnion Cem4627-52-11 06:32:00* Test Item Value Reference Range Interpretation Comme nts Anion Gap (test code = 74523-6) 11.8 8-16 [facility] ClinicsBlood Urea Fvpikvmi1310-55-38 06:32:00* Test Item Value Reference Range Interpretation Comme nts Blood Urea Nitrogen (test co de = 3094-0) 9 7-26 [facility] ClinicsCreatinine2020-03-19 06:32:00* Test Item Value Reference Range Interpretation Comme nts Creatinine (test code = 2160-0) 0.71 0.57-1.11 [facility] ClinicsBUN/Creatinine Fjgsc9625-36-97 06:32:00* Test Item Value Reference Range Interpretation Comme nts BUN/Creatinine Ratio (test c ode = 3097-3) 13 6-25 [facility] ClinicsEstimat Glomerular Filtration Swes1016-86-77 06:32:00* Test Item Value Reference Range Interpretation Comme nts Estimat Glomerular Filtratio n Rate (test code = 628651988) > 60 >60 Ranges were taken from the National Kidney Disease Education Program and the National Kidney Foundation literature.Reference ranges:60 or greater: Vloodb26- 59 (for 3 consecutive months): Chronic kidney disease 15 or less: Kidney failure [facility] ClinicsGlucose Blxcy1017-73-81 06:32:00* Test Item Value Reference Range Interpretation Comme [facility] Glucose Level (test code = DMR6537) 95 74-118 [facility] ClinicsCalcium Qavrs3226-89-89 06:32:00* Test Item Value Reference Range Interpretation Comme nts Calcium Level (test code = 72101-6) 9.3 8.4-10.2 [facility] ClinicsCreatine Kinase NE6225-60-54 06:21:00* Test Item Value Reference Range Interpretation Comme nts Creatine Kinase MB (test cod e = 73411-8) 0.40 0-5.0 [facility] ClinicsTroponin A4423-62-52 06:21:00* Test Item Value Reference Range Interpretation Comme nts Troponin I (test code = WHT1498) < 0.001 0-0.300 [facility] ClinicsWhite Blood Mteka0565-75-23 06:02:00* Test Item Value Reference Range Interpretation Comme nts White Blood Count (test code = 6690-2) 7.26 4.8-10.8 [facility] ClinicsRed Blood Xkqkv6724-00-39 06:02:00* Test Item Value Reference Range Interpretation Comme nts Red Blood Count (test code = 789-8) 4.41 3.6-5.1 [facility] ClinicsHemoglobin2020-03-19 06:02:00* Test Item Value Reference Range Interpretation Comme [facility] Hemoglobin (test code = 55287-4) 13.5 12.0-16.0 [facility] ClinicsHematocrit2020-03-19 06:02:00* Test Item Value Reference Range Interpretation Comme nts Hematocrit (test code = 4544-3) 40.1 34.2-44.1 [facility] ClinicsMean Corpuscular Nqcriz1431-75-10 06:02:00* Test Item Value Reference Range Interpretation Comme nts Mean Corpuscular Volume (gold t code = 787-2) 90.9 81-99 [facility] ClinicsMean Corpuscular Uvpjdrmmwv6285-95-49 06:02:00* Test Item Value Reference Range Interpretation Comme [facility] Mean Corpuscular Hemoglobin (test code = 785-6) 30.6 28-32 [facility] ClinicsMean Corpuscular Hemoglobin Otaasia0542-01-25 06:02:00* Test Item Value Reference Range Interpretation Comme [facility] Mean Corpuscular Hemoglobin Concent (test code = 786-4) 33.7 31-35 [facility] ClinicsRed Cell Distribution Lvmih9524-56-62 06:02:00* Test Item Value Reference Range Interpretation Comme [facility] Red Cell Distribution Width (test code = 03821-7) 12.8 11.7-14.4 [facility] ClinicsPlatelet Qyypj5478-09-83 06:02:00* Test Item Value Reference Range Interpretation Comme nts Platelet Count (test code = 777-3) 211 140-360 [facility] ClinicsNeutrophils (%) (Auto)2019-07-15 06:02:00* Test Item Value Reference Range Interpretation Comme nts Neutrophils (%) (Auto) (test code = 50304-4) 43.5 38.7-80.0 [facility] ClinicsLymphocytes (%) (Auto)2019-07-15 06:02:00* Test Item Value Reference Range Interpretation Comme nts Lymphocytes (%) (Auto) (test code = 736-9) 42.4 18.0-39.1 H [facility] ClinicsMonocytes (%) (Auto)2019-07-15 06:02:00* Test Item Value Reference Range Interpretation Comme nts Monocytes (%) (Auto) (test c ode = 5905-5) 11.3 4.4-11.3 [facility] ClinicsEosinophils (%) (Auto)2019-07-15 06:02:00* Test Item Value Reference Range Interpretation Comme nts Eosinophils (%) (Auto) (test code = 713-8) 1.9 0.0-6.0 [facility] ClinicsBasophils (%) (Auto)2019-07-15 06:02:00* Test Item Value Reference Range Interpretation Comme nts Basophils (%) (Auto) (test c ode = 706-2) 0.8 0.0-1.0 [facility] ClinicsIM GRANULOCYTES %2019-07-15 06:02:00* Test Item Value Reference Range Interpretation Comme nts IM GRANULOCYTES % (test code = IM GRANULOCYTES %) 0.1 0.0-1.0 [facility] ClinicsNeutrophils # (Auto)2019-07-15 06:02:00* Test Item Value Reference Range Interpretation Comme nts Neutrophils # (Auto) (test c ode = 751-8) 3.2 2.1-6.9 [facility] ClinicsLymphocytes # (Auto)2019-07-15 06:02:00* Test Item Value Reference Range Interpretation Comme nts Lymphocytes # (Auto) (test c ode = 37275-8) 3.1 1.0-3.2 [facility] ClinicsMonocytes # (Auto)2019-07-15 06:02:00* Test Item Value Reference Range Interpretation Comme nts Monocytes # (Auto) (test code = 742-7) 0.8 0.2-0.8 [facility] ClinicsEosinophils # (Auto)2019-07-15 06:02:00* Test Item Value Reference Range Interpretation Comme nts Eosinophils # (Auto) (test c ode = 711-2) 0.1 0.0-0.4 [facility] ClinicsBasophils # (Auto)2019-07-15 06:02:00* Test Item Value Reference Range Interpretation Comme nts Basophils # (Auto) (test code = 704-7) 0.1 0.0-0.1 [facility] ClinicsAbsolute Immature Granulocyte (bxao4942-26-89 06:02:00* Test Item Value Reference Range Interpretation Comme nts Absolute Immature Granulocyt e (auto (test code = Absolute Immature Granulocyte (auto) 0.01 0-0.1 [facility] ClinicsTriglycerides Yqovo7436-17-90 20:14:00* Test Item Value Reference Range Interpretation Comme nts Triglycerides Level (test co de = 2571-8) 282 0-149 H [facility] ClinicsCholesterol Tbhup1592-47-04 20:14:00* Test Item Value Reference Range Interpretation Comme nts Cholesterol Level (test code = 2093-3) 144 0-199 Less than 200 mg/dL Low Woey163 - 239 mg/dL Borderline Crsu732 mg/dl and greater High RiskCHI White Memorial Medical CenterLDL Uvillsbxpcf1504-03-46 20:14:00 * Test Item Value Reference Range Interpretation Comme nts LDL Cholesterol (test code = 2089-1) 37 60-130 L [facility] ClinicsHDL Ufjykrvkyeu2594-46-96 20:14:00* Test Item Value Reference Range Interpretation Comme nts HDL Cholesterol (test code = 2085-9) 51 40-60 [facility] ClinicsCholesterol/HDL Adall2076-45-15 20:14:00* Test Item Value Reference Range Interpretation Comme nts Cholesterol/HDL Ratio (test code = 9830-1) 2.8 3.0-3.6 L [facility] ClinicsCHEST SINGLE (PORTABLE)2019-07-14 16:51:00[facility] [address] [place] [address] PatientName: HAYLEY KATZ MR #: [id number] : 1955 Age/Sex: 64/F Req #: [id number] Adm Physician: Ordered by: AISHA VIERA NP Report #: [id number] Location: ER Room/Bed: __ Procedure: [id number] DX/CHEST SINGLE (PORTABLE) Exam Date: 07/14/19 Exam [...] 07/14/191651 COPY TO: AISHA VIERA NPB-Type Natriuretic Wlvysnn6997-09-25 16:23:00* Test Item Value Reference Range Interpretation Comme nts B-Type Natriuretic Peptide ( test code = 38166-9) 15.6 0-100 [facility] ClinicsUrine GKI5437-63-12 16:15:00* Test Item Value Reference Range Interpretation Comme nts Urine WBC (test code = 5821-4) 0-5 0-5 [facility] ClinicsUrine LWQ1599-89-32 16:15:00* Test Item Value Reference Range Interpretation Comme nts Urine RBC (test code = 50973-0) 0-5 0-5 [facility] ClinicsUrine Winqdrrc1603-42-21 16:15:00* Test Item Value Reference Range Interpretation Comme nts Urine Bacteria (test code = 02745-5) NONE NONE [facility] ClinicsUrine Epithelial Jkqcs0595-70-65 16:15:00* Test Item Value Reference Range Interpretation Comme nts Urine Epithelial Cells (test code = 90571-1) RARE NONE [facility] ClinicsTotal Ngdfoatku0024-41-90 16:11:00* Test Item Value Reference Range Interpretation Comme nts Total Bilirubin (test code = 1975-2) 0.2 0.2-1.2 [facility] ClinicsAspartate Amino Transf (AST/SGOT)2019-07-14 16:11:00* Test Item Value Reference Range Interpretation Comme nts Aspartate Amino Transf (AST/ SGOT) (test code = Aspartate Amino Transf (AST/SGOT)) 28 5-34 [facility] ClinicsAlanine Aminotransferase (ALT/SGPT)2019-07-14 16:11:00* Test Item Value Reference Range Interpretation Comme nts Alanine Aminotransferase (AL T/SGPT) (test code = 1742-6) 27 0-55 [facility] ClinicsTotal Zassasj3320-81-14 16:11:00* Test Item Value Reference Range Interpretation Comme [facility] Total Protein (test code = 2885-2) 7.4 6.5-8.1 [facility] ClinicsAlbumin2020-03-18 16:11:00* Test Item Value Reference Range Interpretation Comme nts Albumin (test code = 1751-7) 3.8 3.5-5.0 [facility] ClinicsGlobulin2020-03-18 16:11:00* Test Item Value Reference Range Interpretation Comme nts Globulin (test code = 47120-6) 3.6 2.3-3.5 H [facility] ClinicsAlbumin/Globulin Kqyaz9658-58-29 16:11:00* Test Item Value Reference Range Interpretation Comme [facility] Albumin/Globulin Ratio (test code = 1759-0) 1.1 0.8-2.0 [facility] ClinicsAlkaline Etdhnexamoz5501-25-06 16:11:00* Test Item Value Reference Range Interpretation Comme nts Alkaline Phosphatase (test c ode = 6768-6) 139 40-150 [facility] ClinicsProthrombin Xgga1698-02-61 16:09:00* Test Item Value Reference Range Interpretation Comme nts Prothrombin Time (test code = 5902-2) 12.0 11.9-14.5 [facility] ClinicsProthromb Time International Wrxgf8793-13-06 16:09:00* Test Item Value Reference Range Interpretation Comme nts Prothromb Time International Ratio (test code = 6301-6) 0.84 Oral Anticoagulant Therapy INR Values:1. Low Intensity Therapy 1.5 - 2.02. Moderate Intensity Therapy 2.0 - 3.03. High Intensity Therapy(1) 2.5 - 3.54. High Intensity Therapy(2) 3.0 - 4.05. Panic Value INR > 5.0[facility] ClinicsActivated Partial Thromboplast Bksz2235-39-76 16:09:00* Test Item Value Reference Range Interpretation Comme nts Activated Partial Thrombopla st Time (test code = 03151-7) 30.3 23.8-35.5 [facility] ClinicsUrine Mtzoc3672-56-71 16:00:00* Test Item Value Reference Range Interpretation Comme nts Urine Color (test code = 5778-6) YELLOW YELLOW [facility] ClinicsUrine Fetqlcw4971-83-36 16:00:00* Test Item Value Reference Range Interpretation Comme nts Urine Clarity (test code = 01315-7) SL CLOUDY CLEAR [facility] ClinicsUrine Specific Nlbrrmp7954-81-48 16:00:00* Test Item Value Reference Range Interpretation Comme nts Urine Specific [place] (test code = 5811-5) 1.020 1.010-1.025 [facility] ClinicsUrine zJ7529-71-54 16:00:00* Test Item Value Reference Range Interpretation Comme nts Urine pH (test code = 28012-9) 5.5 5-7 [facility] ClinicsUrine Leukocyte Vjepoext3866-48-57 16:00:00* Test Item Value Reference Range Interpretation Comme nts Urine Leukocyte Esterase (te st code = 5799-2) TRACE NEGATIVE H [facility] ClinicsUrine Aecvwse0015-23-50 16:00:00* Test Item Value Reference Range Interpretation Comme [facility] Urine Nitrite (test code = 05376-9) NEGATIVE NEGATIVE [facility]icsU[facility] [id number] 16:00:00* Test Item Value Reference Range Interpretation Comme nts Urine Protein (test code = 5804-0) NEGATIVE NEGATIVE [facility]icsUrine Glucose (UA)2019-07-14 16:00:00* Test Item Value Reference Range Interpretation Comme nts Urine Glucose (UA) (test cod e = 2349-9) NEGATIVE NEGATIVE [facility]icsUrine [id number] 16:00:00* Test Item Value Reference Range Interpretation Comme nts Urine Ketones (test code = 98720-1) NEGATIVE NEGATIVE [facility]icsUrine Icrnnkcwwlpz8648-71-13 16:00:00* Test Item Value Reference Range Interpretation Comme nts Urine Urobilinogen (test cod e = 68015-1) 0.2 0.2-1 [facility]icsUrine Ivcibhoqk8630-17-77 16:00:00* Test Item Value Reference Range Interpretation Comme nts Urine Bilirubin (test code = 1978-6) NEGATIVE NEGATIVE [facility]icsUrine Uqqfz1984-04-89 16:00:00* Test Item Value Reference Range Interpretation Comme nts Urine Blood (test code = 69695-5) TRACE NEGATIVE H [facility] ClinicsCBC W/O [id number] 18:53:00* Test Item Value Reference Range Interpretation Comme nts WHITE BLOOD CELL (test code = WBC) 6.6 K/mm3 4.5-12.5 N RED BLOOD CELL (test code = RBC) 4.24 mill/mm3 3.7-5.2 N HEMOGLOBIN (test code = HGB) 12.9 gram/dL 11.5-15.5 N HEMATOCRIT (test code = HCT) 39.9 % 36.0-46.0 N MEAN CELL VOLUME (test code = MCV) 94.1 fL 80-98 N MEAN CELL HGB (test code = MCH) 30.4 picogram 27.0-33.0 N MEAN CELL HGB CONCETRATION (test code = MCHC) 32.3 gram/dL 33.0-36.0 L RED CELL DISTRIBUTION WIDTH (test code = RDW) 13.0 % 11.6-16.2 N PLATELET COUNT (test code = PLT) 236 K/mm3 150-450 N MEAN PLATELET VOLUME (test c ode = MPV) 10.2 fL 6.7-11.0 N BASIC METABOLIC [id number] 18:51:00* Test Item Value Reference Range Interpretation Comme nts SODIUM (test code = NA) 139 mmol/L 136-145 N POTASSIUM (test code = K) 3.7 mmol/L 3.5-5.1 N CHLORIDE (test code = CL) 106.0 mmol/L 98-107 N CARBON DIOXIDE (test code = CO2) 28.0 mmol/L 21-32 N ANION GAP (test code = GAP) 8.7 10-20 L GLUCOSE (test code = GLU) 104 mg/dL 74-106 N BLOOD UREA NITROGEN (test code = BUN) 20 mg/dL 7-18 H GLOMERULAR FILTRATION RATE (test code = GFR) > 60 mL/min >=60 Estimated GFR by using Modified MDRD formula.Chronic kidney disease is defined as either kidney damageor GFR <60 mL/min/1.73 m2 for >3 months. CREATININE (test code = CREAT) 0.70 mg/dL 0.55-1.02 N Note change in reference range due to change in reagent. BUN/CREATININE RATIO (test code = BUN/CREA) 28.6 10-20 H CALCIUM (test code = CA) 8.5 mg/dL 8.5-10.1 N [id number] 18:51:00* Test Item Value Reference Range Interpretation Comme nts TROPONIN-I (test code = TROPI) <0.015 ng/mL 0-0.045 N CBC W/O [id number] 18:51:00* Test Item Value Reference Range Interpretation Comme nts WHITE BLOOD CELL (test code = WBC) K/mm3 4.5-12.5 RED BLOOD CELL (test code = RBC) mill/mm3 3.7-5.2 HEMOGLOBIN (test code = HGB) 12.9 gram/dL 11.5-15.5 N HEMATOCRIT (test code = HCT) 39.9 % 36.0-46.0 N MEAN CELL VOLUME (test code = MCV) fL 80-98 MEAN CELL HGB (test code = MCH) picogram 27.0-33.0 MEAN CELL HGB CONCETRATION ( test code = MCHC) gram/dL 33.0-36.0 RED CELL DISTRIBUTION WIDTH (test code = RDW) % 11.6-16.2 PLATELET COUNT (test code = PLT) K/mm3 150-450 MEAN PLATELET VOLUME (test c ode = MPV) fL 6.7-11.0 TROPONIN I [id number] 18:36:00* Test Item Value Reference Range Interpretation Comme nts TROPONIN I RAPID (test code = TROPIRAP) 0.00 ng/mL <0.08 Please Note New Reference Range 0.00-0.079 ng/mL - Negative>or= 0.08 ng/mL - Positive The use of serial sampling and testing protocol is arecommended practice.An elevated troponin level alone is often not sufficient fordiagnosis of myocardial infarction. Troponin results obtained by different assays may vary.Evaluation of the extent of myocardial damage based onincrease of troponin would be valid only if similarmethodology is used. - XR CHEST 1 [id number] 17:48:00FAX: Cheyanne Quiroga DO [place]: B St: REG FAX: Lilly Ramirez MD [phone] Name: HAYLEY KATZ [facility] : 1955 Age/S: 63/F [address] [facility] Unit #: [id number] Loc: [place] [address] Phys: Cheyanne Quiroga DO Acct: [id number] Dis Date: Status: REG ER PHONE #: [phone] Exam Date: 09/09/2018 2574 FAX #: [phone] Reason: CHEST PAIN EXAMS: CPT CODE: [id number] XR CHEST 1 V 28140 REASON FOR EXAM: CHEST PAIN EXAM ORDER DATE: 09/09/2018 5:19 PM Ordering Anai: HERO VelizROCEDURE: - XR CHEST 1 V COMPARISON: FINDINGS: Portable AP frontal view of the chest obtained at 5:35 PM shows clear lungs without evidence of consolidation. There is no evidence of effusion. The heart size is minimally enlarged. Pulmonary vasculatures are unremarkable. IMPRESSION: No active disease. at 2989 Reported and signed by: Neto Castro M.D. CC: Cheyanne Quiroga DO; Lilly Zarate Technologist: Lc Marrufo RT(R) Trnscrd Date/Time/By: 09/09/2018 (5712) : By: MamiL Orig Print D/T: S: 09/09/2018 (3214) PAGE 1 Signed Report- CT ABD PELVIS W/KWWT5510-31-12 17:20:00Name: HAYLEY KATZ [facility] : 1955 Age/S: 63 / F [address] [facility] Unit #: [id number] Loc: [place], [place] [address] Phys: Cornell Solares MD Acct: [id number] DisDate: Status: REG ER PHONE #: [phone] Exam Date: 08/22/2018 1701 FAX #: [phone] Reason: abd pain EXAMS: CPT CODE: [id number] CT ABD PELVIS W/CONT 44891 HISTORY: Abdominal pain TECHNIQUE: Immediate and delayed [address] images were obtained through the abdomen and pelvis after IV administration of 100 mL of Isovue-370 contrast. Sagittal and coronal reformatted images were generated.Automated exposure control for dose reduction. COMPARISON: 06/08/18 [...] 1720 Reported and signed by: Isabell Florez D.O.CC: Cornell Solares MD; Lilly Zarate Technologist:Briana Ariza CTDI: DLP: Trnscb Date/Time: 08/22/2018 (1720) ThaddeusLDP1 Orig Print D/T: S: 08/22/2018 (7622) CTDI: DLP: PAGE 1 Signed ReportLACTIC [id number] 16:42:00 * Test Item Value Reference Range Interpretation Comme nts LACTIC ACID (test code = LACT) 1.5 MMOL/L 0.4-1.9 N COMPREHENSIVE METABOLIC [id number] 16:35:00* Test Item Value Reference Range Interpretation Comme nts SODIUM (test code = NA) 143 mmol/L 135-148 N POTASSIUM (test code = K) 3.7 mmol/L 3.5-5.1 N CHLORIDE (test code = CL) 108 mmol/L 101-109 N CARBON DIOXIDE (test code = CO2) 26.2 mmol/L 21-32 N ANION GAP (test code = GAP) 13 mmol/L 10-20 N GLUCOSE (test code = GLU) 103 mg/dL 74-106 N BLOOD UREA NITROGEN (test code = BUN) 18 mg/dL 3-21 N CREATININE (test code = CREAT) 0.67 mg/dL 0.55-1.3 N BUN/CREATININE RATIO (test code = BUN/CREA) 26.9 10-20 H TOTAL PROTEIN (test code = PROT) 7.0 g/dL 6.5-8.4 N ALBUMIN (test code = ALB) 3.4 g/dL 3.4-4.8 N GLOBULIN (test code = GLOB) 3.6 G/DL 1-10 N ALBUMIN/GLOBULIN RATIO (test code = A/G) 0.9 RATIO 0.75-1.50 N CALCIUM (test code = CA) 8.7 mg/dL 8.4-10.2 N BILIRUBIN TOTAL (test code = BILT) 0.30 mg/dL 0.0-1.0 N SGOT/AST (test code = AST) 25 U/L 6-32 N SGPT/ALT (test code = ALT) 29 U/L 12-78 N Note: Change in REFERENCE RANGE due to new reagent method. ALKALINE PHOSPHATASE TOTAL (test code = ALKP) 124 U/L 38-126 N [id number] 16:35:00* Test Item Value Reference Range Interpretation Comme nts LIPASE (test code = LIP) 141 U/L 128-270 N COMPREHENSIVE METABOLIC [id number] 16:29:00* Test Item Value Reference Range Interpretation Comme nts SODIUM (test code = NA) 143 mmol/L 135-148 N POTASSIUM (test code = K) 3.7 mmol/L 3.5-5.1 N CHLORIDE (test code = CL) 108 mmol/L 101-109 N CARBON DIOXIDE (test code = CO2) 26.2 mmol/L 21-32 N ANION GAP (test code = GAP) 13 mmol/L 10-20 N GLUCOSE (test code = GLU) 103 mg/dL 74-106 N BLOOD UREA NITROGEN (test co de = BUN) 18 mg/dL 3-21 N CREATININE (test code = CREAT) 0.67 mg/dL 0.55-1.3 N BUN/CREATININE RATIO (test c ode = BUN/CREA) 26.9 10-20 H TOTAL PROTEIN (test code = PROT) gram/dL 6.4-8.2 ALBUMIN (test code = ALB) g/dL 3.4-5.0 GLOBULIN (test code = GLOB) g/dL 2.7-4.2 ALBUMIN/GLOBULIN RATIO (test code = A/G) 0.75-1.50 CALCIUM (test code = CA) 8.7 mg/dL 8.4-10.2 N BILIRUBIN TOTAL (test code = BILT) mg/dL 0.2-1.2 SGOT/AST (test code = AST) IUnit/L 15-37 SGPT/ALT (test code = ALT) U/L 10-69 ALKALINE PHOSPHATASE TOTAL ( test code = ALKP) IUnit/L 45-117 [id number] 16:29:00* Test Item Value Reference Range Interpretation Comme nts LIPASE (test code = LIP) Unit/L 144-286 CBC W/AUTO [id number] 16:25:00* Test Item Value Reference Range Interpretation Comme nts WHITE BLOOD CELL (test code = WBC) 7.0 K/mm3 4.5-12.5 N RED BLOOD CELL (test code = RBC) 3.82 mill/mm3 3.7-5.2 N HEMOGLOBIN (test code = HGB) 12.1 gram/dL 11.5-15.5 N HEMATOCRIT (test code = HCT) 36.3 % 36.0-46.0 N MEAN CELL VOLUME (test code = MCV) 95.0 fL 80-98 N MEAN CELL HGB (test code = MCH) 31.7 picogram 27.0-33.0 N MEAN CELL HGB CONCETRATION (test code = MCHC) 33.3 gram/dL 33.0-36.0 N RED CELL DISTRIBUTION WIDTH (test code = RDW) 13.4 % 11.6-16.2 N RED CELL DISTRIBUTION WIDTH SD (test code = RDW-SD) 44.4 fL 39.1-52.0 N PLATELET COUNT (test code = PLT) 230 K/mm3 150-450 N MEAN PLATELET VOLUME (test c ode = MPV) 10.1 fL 6.7-11.0 N NEUTROPHIL % (test code = NT%) 41.6 [...] K/mm3 0.0-0.2 N MANUAL DIFF REQUIRED (test c ode = MDIFF) NO URINALYSIS [id number] 15:52:00* Test Item Value Reference Range Interpretation Comme nts UA COLOR (test code = COLU) YELLOW YELLOW UA APPEARANCE (test code = APPU) CLEAR CLEAR UA GLUCOSE DIPSTICK (test code = DGLUU) norm mg/dL NEGATIVE UA BILIRUBIN DIPSTICK (test code = BILU) NEGATIVE mg/dL NEGATIVE UA KETONE DIPSTICK (test code = KETU) neg mg/dL NEGATIVE UA SPECIFIC GRAVITY (test code = SGU) 1.010 1.001-1.035 UA BLOOD DIPSTICK (test code = SAGAR) neg Óscar/uL NEGATIVE UA PH DIPSTICK (test code = FLORA) 7.0 5.0-8.0 UA PROTEIN DIPSTICK (test code = PROU) neg mg/dL Neg-15 UA UROBILINIOGEN DIPSTICK (test code = URO) norm mg/dL 0.0-0.2 UA NITRITE DIPSTICK (test code = MAGGIE) NEGATIVE NEGATIVE UA LEUKOCYTE ESTERASE DIPSTICK (test code = LEUU) 25 Bobby/uL (Trace) uL NEGATIVE A UA WBC (test code = WBCU) 0-5 per HPF 0-5 UA RBC (test code = RBCU) 0-2 per HPF 0-5 UA EPITHELIAL CELLS (test code = EPIU) Rare (0-1/hpf) per HPF Few UA BACTERIA (test code = BACU) FEW per HPF NONE Urine Source? Clean CatchUR HCG [id number] 15:52:00* Test Item Value Reference Range Interpretation Comme nts UR HCG QUAL (test code = HCGQLU) NEGATIVE This HCGQL test is NOT applicable for MALE patients.Check with nurse about probable order error.If Tumor Marker Test needed, nurse should order test "HCGTU"(Test #550.57461) Urine Source? Clean CatchThyroid Stimulating Hormone (TSH)2018-07-16 14:52:00* Test Item Value Reference Range Interpretation Comme nts Thyroid Stimulating Hormone (TSH) (test code = 63436-9) 1.902 0.350-4.940 [facility] Cihut6815-85-10 14:36:00* Test Item Value Reference Range Interpretation Comme nts Sodium Level (test code = 2951-2) 133 136-145 L [facility] ClinicsPotassium Dyewa7133-74-27 14:36:00* Test Item Value Reference Range Interpretation Comme nts Potassium Level (test code = 2823-3) 3.8 3.5-5.1 [facility] ClinicsChloride Zrfxt0153-66-12 14:36:00* Test Item Value Reference Range Interpretation Comme nts Chloride Level (test code = 2075-0) 100 98-107 [facility] ClinicsCarbon Dioxide Mnovj7777-61-22 14:36:00* Test Item Value Reference Range Interpretation Comme nts Carbon Dioxide Level (test c ode = 2027-9) 24 22-29 [facility] ClinicsAnion [id number] 14:36:00* Test Item Value Reference Range Interpretation Comme nts Anion Gap (test code = 23848-7) 12.8 8-16 [facility] ClinicsBlood Urea Izvhygom0628-54-98 14:36:00* Test Item Value Reference Range Interpretation Comme nts Blood Urea Nitrogen (test co de = 3094-0) 16 7-26 [facility] ClinicsCreatinine2019-03-21 14:36:00* Test Item Value Reference Range Interpretation Comme nts Creatinine (test code = 2160-0) 0.83 0.57-1.11 [facility] ClinicsBUN/Creatinine Vbjfj1769-51-22 14:36:00* Test Item Value Reference Range Interpretation Comme nts BUN/Creatinine Ratio (test c ode = 3097-3) 19 6-25 [facility] ClinicsEstimat Glomerular Filtration Ukna7815-63-04 14:36:00* Test Item Value Reference Range Interpretation Comme nts Estimat Glomerular Filtratio n Rate (test code = 489339773) > 60 >60 Ranges were taken from the National Kidney Disease Education Program and the National Kidney Foundation literature.Reference ranges:60 or greater: Ykpsmm50- 59 (for 3 consecutive months): Chronic kidney disease 15 or less: Kidney failure [facility] ClinicsGlucose Xhaek5284-91-67 14:36:00* Test Item Value Reference Range Interpretation Comme nts Glucose Level (test code = KEF4724) 93 74-118 [facility] ClinicsCalcium Tyvqx1970-06-30 14:36:00* Test Item Value Reference Range Interpretation Comme nts Calcium Level (test code = 39838-1) 9.7 8.4-10.2 [facility] ClinicsMagnesium Jgprq6455-65-27 14:36:00* Test Item Value Reference Range Interpretation Comme nts Magnesium Level (test code = 33481-9) 2.3 1.3-2.1 H [facility] ClinicsTotal Sihfvroyb1948-22-54 14:36:00* Test Item Value Reference Range Interpretation Comme nts Total Bilirubin (test code = 1975-2) 0.8 0.2-1.2 [facility] ClinicsAspartate Amino Transf (AST/SGOT)2018-07-16 14:36:00* Test Item Value Reference Range Interpretation Comme nts Aspartate Amino Transf (AST/ SGOT) (test code = Aspartate Amino Transf (AST/SGOT)) 33 5-34 [facility] ClinicsAlanine Aminotransferase (ALT/SGPT)2018-07-16 14:36:00* Test Item Value Reference Range Interpretation Comme nts Alanine Aminotransferase (AL T/SGPT) (test code = 1742-6) 25 0-55 [facility] ClinicsTotal Tuuvexj2073-54-82 14:36:00* Test Item Value Reference Range Interpretation Comme nts Total Protein (test code = 2885-2) 8.3 6.5-8.1 H [facility] ClinicsAlbumin2019-03-21 14:36:00* Test Item Value Reference Range Interpretation Comme nts Albumin (test code = 1751-7) 4.3 3.5-5.0 [facility] ClinicsGlobulin2019-03-21 14:36:00* Test Item Value Reference Range Interpretation Comme nts Globulin (test code = 04819-0) 4.0 2.3-3.5 H [facility] ClinicsAlbumin/Globulin Eliki7288-12-25 14:36:00* Test Item Value Reference Range Interpretation Comme nts Albumin/Globulin Ratio (test code = 1759-0) 1.1 0.8-2.0 [facility] ClinicsAlkaline Nqlofskguor5599-13-06 14:36:00* Test Item Value Reference Range Interpretation Comme nts Alkaline Phosphatase (test c ode = 6768-6) 123 40-150 [facility] ClinicsUrine [id number] 14:30:00* Test Item Value Reference Range Interpretation Comme nts Urine WBC (test code = 5821-4) 0-5 0-5 [facility] ClinicsUrine [id number] 14:30:00* Test Item Value Reference Range Interpretation Comme nts Urine RBC (test code = 73538-4) NONE 0-5 [facility] ClinicsUrine Kycugapg3625-25-46 14:30:00* Test Item Value Reference Range Interpretation Comme nts Urine Bacteria (test code = 06568-3) FEW NONE [facility] ClinicsUrine Epithelial Fjkck5543-63-73 14:30:00* Test Item Value Reference Range Interpretation Comme nts Urine Epithelial Cells (test code = 53296-8) RARE NONE [facility] ClinicsUrine Ojfra3921-23-62 14:21:00* Test Item Value Reference Range Interpretation Comme nts Urine Color (test code = 5778-6) STRAW YELLOW [facility] ClinicsUrine Wnyualr7178-48-05 14:21:00* Test Item Value Reference Range Interpretation Comme nts Urine Clarity (test code = 00193-5) CLEAR CLEAR [facility] ClinicsUrine Specific Yvldmcb9325-04-05 14:21:00* Test Item Value Reference Range Interpretation Comme nts Urine Specific [place] (test code = 5811-5) 1.015 1.010-1.025 [facility] ClinicsUrine [id number] 14:21:00* Test Item Value Reference Range Interpretation Comme nts Urine pH (test code = 60349-5) 8 5-7 H [facility] ClinicsUrine Leukocyte Fukyjsma9199-70-07 14:21:00* Test Item Value Reference Range Interpretation Comme nts Urine Leukocyte Esterase (te st code = 5799-2) NEGATIVE NEGATIVE [facility] ClinicsUrine Hemhcjl1432-38-17 14:21:00* Test Item Value Reference Range Interpretation Comme nts Urine Nitrite (test code = 36985-2) NEGATIVE NEGATIVE [facility] ClinicsUrine Hssiywp3448-28-36 14:21:00* Test Item Value Reference Range Interpretation Comme nts Urine Protein (test code = 5804-0) NEGATIVE NEGATIVE [facility] ClinicsUrine Glucose (UA)2018-07-16 14:21:00* Test Item Value Reference Range Interpretation Comme nts Urine Glucose (UA) (test cod e = 2349-9) NEGATIVE NEGATIVE [facility] ClinicsUrine Umcwwyt2628-85-68 14:21:00* Test Item Value Reference Range Interpretation Comme [facility] Urine Ketones (test code = 63689-3) NEGATIVE NEGATIVE [facility] ClinicsUrine Opiates Bpniwa9466-26-84 14:21:00* Test Item Value Reference Range Interpretation Comme nts Urine Opiates Screen (test c ode = 85120-1) NEGATIVE NEGATIVE ALL TESTS PERFORMED MANUALLY ON [employer] TOX/SEE TESTEast [facility] Hospital and ClinicsUrine Barbiturates Lvjfnt1937-31-27 14:21:00* Test Item Value Reference Range Interpretation Comme nts Urine Barbiturates Screen (t est code = 413586067) NEGATIVE NEGATIVE [facility] ClinicsUrine Phencyclidine Xmxaxp2196-74-61 14:21:00 * Test Item Value Reference Range Interpretation Comme [facility] Urine Phencyclidine Screen ( test code = 50020-2) NEGATIVE NEGATIVE [facility] ClinicsUrine Amphetamines Gkaivs3836-63-17 14:21:00 * Test Item Value Reference Range Interpretation Comme nts Urine Amphetamines Screen (t est code = 88965-5) NEGATIVE NEGATIVE [facility] ClinicsUrine Methamphetamines Ujzevk6071-09-89 14:21:00* Test Item Value Reference Range Interpretation Comme [facility] Urine Methamphetamines Scree n (test code = Urine Methamphetamines Screen) NEGATIVE NEGATIVE [facility] ClinicsUrine Benzodiazepines Hfvoii1054-55-77 14:21:00* Test Item Value Reference Range Interpretation Comme nts Urine Benzodiazepines Screen (test code = 15267-0) NEGATIVE NEGATIVE [facility] ClinicsUrine Cocaine Fmuffn0212-61-20 14:21:00* Test Item Value Reference Range Interpretation Comme nts Urine Cocaine Screen (test c ode = 3398-5) NEGATIVE NEGATIVE [facility] ClinicsUrine Cannabinoids Hcopya1743-73-72 14:21:00 * Test Item Value Reference Range Interpretation Comme nts Urine Cannabinoids Screen (t est code = 65905-6) NEGATIVE NEGATIVE THESE RESULTS ARE FOR MEDICAL TREATMENT ONLYTHIS REPORT CONTAINS UNCONFIRMED SCREENING RESULTS*POSITIVE RESULTS WILL BE CONFIRMED BY REFERENCE LAB UPON REQUEST CUT-OFFDRUG CLASS CONCENTRATIONng/mLAmphetamines 1000Methamphetamines 1000Cocaine 300Opiate 300Phencyclidine 25Cannabinoid 50Barbiturates 300Benzodiazepine 300Methadone 300[facility] ClinicsUrine Methadone Qtvccy4674-59-24 14:21:00* Test Item Value Reference Range Interpretation Comme nts Urine Methadone Screen (test code = 98744-6) NEGATIVE NEGATIVE THESE RESULTS ARE FOR MEDICAL TREATMENT ONLYTHIS REPORT CONTAINS UNCONFIRMED SCREENING RESULTS*POSITIVE RESULTS WILL BE CONFIRMED BY REFERENCE LAB UPON REQUEST CUT-OFFDRUG CLASS CONCENTRATION ng/mLAmphetamines 1000Methamphetamines 1000Cocaine Metabolite 300Opiate 300Phencyclidine 25Cannabinoid 50Barbiturates 300Benzodiazepine 300Methadone 300[facility] ClinicsUrine Yrkhqcnrafve2033-10-08 14:21:00* Test Item Value Reference Range Interpretation Comme [facility] Urine Urobilinogen (test cod e = 26001-5) 1 0.2-1 [facility] ClinicsUrine Jfqnougsk6114-83-73 14:21:00* Test Item Value Reference Range Interpretation Comme nts Urine Bilirubin (test code = 1978-6) NEGATIVE NEGATIVE [facility] ClinicsUrine Sravg4332-53-34 14:21:00* Test Item Value Reference Range Interpretation Comme nts Urine Blood (test code = 27252-2) NEGATIVE NEGATIVE [facility] ClinicsWhite Blood Kbkvy1016-91-12 14:17:00* Test Item Value Reference Range Interpretation Comme nts White Blood Count (test code = 6690-2) 9.61 4.8-10.8 [facility] ClinicsRed Blood Brekn6014-86-15 14:17:00* Test Item Value Reference Range Interpretation Comme nts Red Blood Count (test code = 789-8) 4.62 3.6-5.1 [facility] ClinicsHemoglobin2019-03-21 14:17:00* Test Item Value Reference Range Interpretation Comme nts Hemoglobin (test code = 78069-7) 14.7 12.0-16.0 [facility] ClinicsHematocrit2019-03-21 14:17:00* Test Item Value Reference Range Interpretation Comme nts Hematocrit (test code = 4544-3) 43.1 34.2-44.1 [facility] ClinicsMean Corpuscular Ezfwye4355-66-01 14:17:00* Test Item Value Reference Range Interpretation Comme [facility] Mean Corpuscular Volume (gold t code = 787-2) 93.3 81-99 [facility] ClinicsMean Corpuscular Jbsvslvgmn3215-49-80 14:17:00* Test Item Value Reference Range Interpretation Comme [facility] Mean Corpuscular Hemoglobin (test code = 785-6) 31.8 28-32 [facility] ClinicsMean Corpuscular Hemoglobin Bbpklvl0501-11-90 14:17:00* Test Item Value Reference Range Interpretation Comme [facility] Mean Corpuscular Hemoglobin Concent (test code = 786-4) 34.1 31-35 [facility] ClinicsRed Cell Distribution Wfewa9901-67-51 14:17:00* Test Item Value Reference Range Interpretation Comme [facility] Red Cell Distribution Width (test code = 69649-6) 12.3 11.7-14.4 [facility] ClinicsPlatelet Woqqw5042-89-92 14:17:00* Test Item Value Reference Range Interpretation Comme [facility] Platelet Count (test code = 777-3) 262 140-360 [facility] ClinicsNeutrophils (%) (Auto)2018-07-16 14:17:00* Test Item Value Reference Range Interpretation Comme nts Neutrophils (%) (Auto) (test code = 15741-3) 55.3 38.7-80.0 [facility] ClinicsLymphocytes (%) (Auto)2018-07-16 14:17:00* Test Item Value Reference Range Interpretation Comme nts Lymphocytes (%) (Auto) (test code = 736-9) 35.9 18.0-39.1 [facility] ClinicsMonocytes (%) (Auto)2018-07-16 14:17:00* Test Item Value Reference Range Interpretation Comme nts Monocytes (%) (Auto) (test c ode = 5905-5) 6.6 4.4-11.3 [facility] ClinicsEosinophils (%) (Auto)2018-07-16 14:17:00* Test Item Value Reference Range Interpretation Comme nts Eosinophils (%) (Auto) (test code = 713-8) 1.2 0.0-6.0 [facility] ClinicsBasophils (%) (Auto)2018-07-16 14:17:00* Test Item Value Reference Range Interpretation Comme nts Basophils (%) (Auto) (test c ode = 706-2) 0.7 0.0-1.0 [facility] ClinicsIM GRANULOCYTES %2018-07-16 14:17:00* Test Item Value Reference Range Interpretation Comme nts IM GRANULOCYTES % (test code = IM GRANULOCYTES %) 0.3 0.0-1.0 [facility] ClinicsNeutrophils # (Auto)2018-07-16 14:17:00* Test Item Value Reference Range Interpretation Comme nts Neutrophils # (Auto) (test c ode = 751-8) 5.3 2.1-6.9 [facility] ClinicsLymphocytes # (Auto)2018-07-16 14:17:00* Test Item Value Reference Range Interpretation Comme nts Lymphocytes # (Auto) (test c ode = 82757-3) 3.5 1.0-3.2 H [facility] ClinicsMonocytes # (Auto)2018-07-16 14:17:00* Test Item Value Reference Range Interpretation Comme nts Monocytes # (Auto) (test code = 742-7) 0.6 0.2-0.8 [facility] (Auto)2018-07-16 14:17:00* Test Item Value Reference Range Interpretation Comme nts Eosinophils # (Auto) (test c ode = 711-2) 0.1 0.0-0.4 [facility] (Auto)2018-07-16 14:17:00* Test Item Value Reference Range Interpretation Comme nts Basophils # (Auto) (test code = 704-7) 0.1 0.0-0.1 [facility] ClinicsAbsolute Immature Granulocyte ([id number] 14:17:00* Test Item Value Reference Range Interpretation Comme nts Absolute Immature Granulocyt e (auto (test code = Absolute Immature Granulocyte (auto) 0.03 0-0.1 [facility] CT ABD PELVIS W/O [id number] 13:15:00 [place] [place] 1955 Age/S: 63 / F [address] [facility] Unit #: [id number] Loc: Fuad Reyna [address] Phys: Ab Harley MD Acct: [id number] Dis Date: Status: REG ER PHONE #: [phone] Exam Date: 06/08/2018 1258 FAX #: [phone] Reason: abdominal pain EXAMS: CPT CODE: [id number] CT ABD PELVIS W/O CONT 21809 HISTORY: Abdominal pain. COMPARISON: CT scan from [...] PAGE 1 Signed Report (CONTINUED) Name: [place] [place] 1955 Age/S: 63 / F [address] [facility] Unit #: [id number] Loc: Fuad Reyna [address] Phys: Ab Harley MD Acct: [id number] Dis Date: Status: REG ER PHONE #: [phone] Exam Date: 06/08/2018 1252 FAX #: [phone] Reason: abdominal pain EXAMS: CPT CODE: [id number] CT ABD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 viral. Symptomatic treatment discussed. Warning symptoms discussed. Patient be discharged home with outpatient follow-up. ED Course Medication(s) Ordered Medication(s) Ordered: Central Nervous System Agents Sig/Carla Start time Last Medication Dose Route Stop Time Status Admin Acetaminophen 1,000 MG X1ED STA 02/02 2007 DC 02/02 PO 02/02 Patient Discharge Departure Vital Signs/Condition Vital Signs First Documented: Result Date Time Pulse Ox 97 02/02 1955 B/P 156/91 02/02 1955 B/P Mean 112 02/02 1955 O2 Delivery Room air 02/02 1955 Temp 37.1 02/02 1955 Pulse 97 02/02 1955 Resp 18 02/02 1955 Last Documented: Result Date Time Pulse Ox 98 02/02 2114 B/P 148/88 02/02 2114 B/P Mean 108 02/02 2114 O2 Delivery Room air 02/02 2114 Temp 36.9 02/02 2114 Pulse 88 02/02 2114 Resp 16 02/02 2114 All vital signs available at the time of this entry have been reviewed. Condition Stable Clinical Impression Clinical Impression Primary Impression: Pharyngitis Secondary Impressions: Bronchitis, Hypertension Disposition Decision Discharge )( Discharged to Home Yes )( Time 2111 )( Date 02/03/20 Discharge/Care Plan Counseled Regarding Diagnosis, Lab results, Imaging studies, Need for follow-up, When to return to ED Referrals Lilly Zarate MD (PCP/Family) Discharge Note I have spoken with the patient and/or caregivers. I have explained the patient's condition, diagnoses and treatment plan based on the information available to me at this time. I have answered the patient's and/or caregiver's questions and addressed any concerns. The patient and/or caregivers have as good an understanding of the patient's diagnosis, condition and treatment plan as can be expected at this point. The vital signs have been stable. The patient's condition is stable and appropriate for discharge from the emergency department. The patient will pursue further outpatient evaluation with the primary care physician or other designated or consulting physician as outlined in the discharge instructions. The patient and/or caregivers are agreeable to this plan of care and follow-up instructions have been explained in detail. The patient and/or caregivers have received these instructions in written format and have expressed an understanding of the discharge instructions. The patient and/or caregivers are aware that any significant change in condition or worsening of symptoms should prompt an immediate return to this or the closest emergency department or a call to 911. at 0056 RPT #:[id number] END OF REPORT [facility] 2019-11-23 11:03:00 [facility] ([facility]) EMERGENCY PROVIDER REPORT REPORT#:[id number] REPORT STATUS: Signed DATE:11/23/19 TIME: 1103 PATIENT: HAYLEY KATZ UNIT #: [id number] ROOM/BED: AGE: 64 SEX: F PCP PHYS: Morgan Huerta MD SERVICE AUTHOR: Jayme Kimball MD * ALL edits or amendments must be made on the electronic/computer document * HPI-Abd Pain F 40 and Over General Initial Greet Date/Time 11/23/[address] Escobar Presentation Chief Complaint Abdominal pain Sudden in Onset? No Free Text HPI Notes Free Text HPI Notes 64-year-old female with history of depression on antidepressant medication and multiple abdominal surgeries including appendectomy, lysis of adhesions, section and hysterectomy presents with 4 to 5 days of persistent upper abdominal discomfort, distention and bloating. She was seen on Friday in the emergency department was diagnosed with a UTI and prescribed Keflex. She was also given an antinausea medication but is had persistent symptoms. She reports mild intermittent shortness of breath and a mild nonproductive cough. She denies diarrhea. She denies obstipation, or constipation. She has been eating albeit she has anorexia. She denies any urinary symptoms. Review of Systems ROS Statements All systems rev neg except as marked. Focused Review of Systems Constitutional Denies: Chills, Fever, Lethargy. Respiratory Reports: Cough, non-productive, Shortness of breath. Denies: Cough, productive. Cardiovascular Denies: Chest pain, Syncope. GI Reports: Abdominal pain, Anorexia. Denies: Constipation, Diarrhea, Nausea, Vomiting. Female Denies: Dysuria, Flank pain, Pelvic pain. Musculoskeletal Denies: Back pain, Extremity pain. Additional Review of Systems Eyes Denies: Eye pain bilat. Ears/Nose/Throat Denies: Nasal congestion, Sore throat. Skin Denies: Rash. Allergy/Immun Denies: Rhinorrhea. Neurologic Denies: Syncope. Past Medical History - Adult Stated Complaint ABDOMINAL PAIN, COUGH, SHORTNESS OF BREATH Allergies Coded Allergies: No Known Allergies (11/19/19) Home Medications Discontinued Scripts PANTOPRAZOLE DR (PROTONIX) 40 MG PO [address] (PROTONIX) 40 MG PO 0600 #30 TAB Prov: 04/12/16 DC: 11/23/19 1120 Therapy completed Reported Medications MIRTAZAPINE (REMERON) 15 MG PO BEDTIME HYDROCHLOROTHIAZIDE (HYDRODIURIL) 25 MG PO DAILY ESCITALOPRAM (LEXAPRO) 5 MG PO DAILY LOSARTAN (COZAAR) 25 MG PO DAILY GABAPENTIN (NEURONTIN) 300 MG PO BEDTIME ALPRAZolam (XANAX) 0.25 MG PO BID PRN ANXIETY ASPIRIN EC (ECOTRIN) 81 MG PO DAILY traZODone (DESYREL) 50 MG PO BEDTIME LORATADINE (CLARITIN) 10 MG PO DAILY Discontinued Reported Medications FAMOTIDINE (PEPCID) 20 MG PO DAILY DULoxetine DR (CYMBALTA) 1 TAB PO BID FERROUS SULFATE (FEOSOL) 325 MG PO DAILY Past Medical History: Reports: Coronary artery disease, GERD/gastritis, Transient ischemic attack. Additional Medical History Depression. Past Surgical History: Reports: Appendectomy, Cholecystectomy, (x3). Additional Surgical History neck surgery Alcohol Use Denies EtOH use Drug Use Denies recreational drugs Smoking status for patients 13 years old or older: Never Smoker Other Social History Local resident Physical Exam Vital Signs Vital Signs First Documented: Result Date Time Pulse Ox 98 11/22 1052 B/P 146/82 11/22 1052 B/P Mean 103 11/22 1052 Temp 36.7 11/22 1052 Pulse 84 11/22 1052 Resp 18 11/22 1052 O2 Delivery Room air 11/22 1306 Last Documented: Result Date Time Pulse Ox 98 11/22 1306 B/P 139/76 11/22 1306 B/P Mean 97 11/22 1306 O2 Delivery Room air 11/22 1306 Temp 36.5 11/22 1306 Pulse 80 11/22 1306 Resp 18 11/22 1306 Review of Vital Signs Reviewed Focused PE General/Const General/Const Awake, Alert MS Head Head Normocephalic Eyes Eyes PERRL Ears/Nose/Throat Ears/Nose/Throat Airway patent, Mucous membranes moist, Pharynx NL Resp/Chest Respiratory/Chest Breath sounds NL, Breath sounds = bilat, No respiratory distress, No rales, No rhonchi, No wheezing Cardiovascular Cardiovascular Heart rate NL, Regular rhythm, Heart sounds NL, Peripheral circulation NL Abdomen/GI Abdomen/GI Soft, Non-tender, McBurney's non-tender, No guarding, No rebound, BS normoactive, No distention, No hernia, No palpable mass, No pulsatile mass MS Back Back Inspection NL, Non-tender, No CVA tenderness Skin Skin Color NL, Warm, Dry, Turgor NL Neurologic Neurologic Oriented X3, Speech NL, No motor deficits, No sensory deficits Interpretation Diagnostics Lab Results Interpretation Results Laboratory Tests 11/23/19 1106: [Embedded Image Not Available] Laboratory Tests: 11/22 110 Chemistry Sodium (136 - 145 mmol/L) 144 Potassium (3.5 - 5.1 mmol/L) 3.7 Chloride (101 - 109 mmol/L) 109 Carbon Dioxide (21 - 32 mmol/L) 27.3 Anion Gap (10 - 20 mmol/L) 11 BUN (3 - 21 mg/dL) 22 H Creatinine (0.55 - 1.3 mg/dL) 0.72 Glomerular Filtr Rate (>=60 mL/min) > 60 BUN/Creatinine Ratio (10 - 20) 30.6 H Glucose (74 - 106 mg/dL) 95 Calcium (8.4 - 10.2 mg/dL) 8.0 L Total Bilirubin (0.0 - 1.0 mg/dL) 0.30 Direct Bilirubin (0.0 - 0.30 mg/dL) 0.00 AST (6 - 32 U/L) 24 ALT (12 - 78 U/L) 29 Total Alk Phosphatase (38 - 126 U/L) 159 H Troponin I (0.00 - 0.056 ng/mL) <0.015 Total Protein (6.5 - 8.4 g/dL) 6.9 Albumin (3.4 - 4.8 g/dL) 3.2 L Globulin (1 - 10 G/DL) 3.7 Albumin/Globulin Ratio (0.75 - 1.50 RATIO) 0.86 Lipase (128 - 270 U/L) 223 Hematology WBC (4.5 - 12.5 K/mm3) 7.0 RBC (3.7 - 5.2 mill/mm3) 3.85 Hgb (11.5 - 15.5 gram/dL) 11.9 Hct (36.0 - 46.0 %) 35.5 L MCV (80 - 98 fL) 92.2 MCH (27.0 - 33.0 picogram) 30.9 MCHC (33.0 - 36.0 gram/dL) 33.5 RDW (11.6 - 16.2 %) 12.7 RDW Std Deviation (37.0 - 51.0 fL) 43.1 Plt Count (150 - 450 K/mm3) 227 MPV (6.7 - 11.0 fL) 9.5 Urines Urine Color (YELLOW) YELLOW Urine Appearance (CLEAR) CLEAR Urine pH (5.0 - 8.0) 6.5 Ur Specific [place] (1.001 - 1.035) 1.015 Urine Protein (Neg - 15 mg/dL) neg Urine Glucose (UA) (NEGATIVE mg/dL) norm Urine Ketones (NEGATIVE mg/dL) neg Urine Blood (NEGATIVE Óscar/uL) neg Urine Nitrite (NEGATIVE) NEGATIVE Urine Bilirubin (NEGATIVE mg/dL) NEGATIVE Urine Urobilinogen (0.0 - 0.2 mg/dL) norm Ur Leukocyte Esterase (NEGATIVE uL) 500 Bobby/uL (3+) H Urine RBC (0 - 5 per HPF) 0-3 Urine WBC (0 - 5 per HPF) 3-5 Ur Epithelial Cells (Few per HPF) Few (2-5/hpf) Urine Bacteria (NONE per HPF) MODERATE H Recent Impressions: CAT SCAN - CT ABD PELVIS W/CONT 11/22 1157 Report Impression - Status: SIGNED Entered: 11/23/2019 1231 IMPRESSION: No acute intra-abdominal process Location: [facility] Impression By: [email or web address] - Fish Abbott MD Point of Care Testing Pulse Oximetry Pulse Ox % 98 On: Room air Interpretation Interpreted by me, Pulse oximetry normal Time 1052 ECG #1 Interpretation Text/Dict Note EKG shows T wave flattening in aVL. There is no ST segment elevation depressions or inversions. There are no significant Q waves. Gilead appears normal. QRS also appears normal. Date 11/23/19 Time 1055 Interpreted by and reviewed by me, ED physician NL ECG Interpretation Normal rate, Normal sinus rhythm, No STEMI, Normal QRS, Normal intervals Rate 81 Re-Evaluation MDM Free Text MDM Notes Free Text MDM Notes 64-year-old female presents with upper abdominal bloating. CT scan is negative for partial bowel obstruction or small bowel obstruction. She has had no nausea or vomiting. EKG is unremarkable. Troponin testing is also negative. I doubt occult ACS. There is no significant anemia on lab testing, electrolyte abnormalities or signs of UTI on urine analysis )( Re-Evaluation/Progress #1 Text/Dict Note Patient re-evaluated and I discussed results of testing with patient. Patient is resting comfortably. There are no signs of respiratory distress. Patient is neurologically intact. Patient speaking full sentences. All questions were answered. Time of Re-Eval 1239 ED Course Medication(s) Ordered Medication(s) Ordered: Autonomic Drugs Sig/Carla Start time Last Medication Dose Route Stop Time Status Admin Dicyclomine HCl 10 MG X1ED STA 11/22 1103 DC 11/22 PO 11/22 1104 1111 Central Nervous System Agents Sig/Carla Start time Last Medication Dose Route Stop Time Status Admin Acetaminophen 1,000 MG X1ED 11/22 1115 DCD 11/22 PO 12/22 1114 1111 Diagnostic Agents Sig/Carla Start time Last Medication Dose Route Stop Time Status Admin Iopamidol 0 .STK-MED ONE 11/22 1157 DC 11/22 .ROUTE 1202 Iopamidol 0 .STK-MED ONE 11/22 1156 DC IV Gastrointestinal Drugs Sig/Carla Start time Last Medication Dose Route Stop Time Status Admin Al Hydrox/Mg Hydrox/ 30 ML X1ED STA 11/22 1102 DC 11/22 Simethicone PO 11/22 1103 1111 Famotidine 20 MG X1ED STA 11/22 1102 DC 11/22 PO 11/22 1103 1111 Patient Discharge Departure Vital Signs/Condition Vital Signs First Documented: Result Date Time Pulse Ox 98 11/22 1052 B/P 146/82 11/22 1052 B/P Mean 103 11/22 1052 Temp 36.7 11/22 1052 Pulse 84 11/22 1052 Resp 18 11/22 1052 O2 Delivery Room air 11/22 1306 Last Documented: Result Date Time Pulse Ox 98 11/22 1306 B/P 139/76 11/22 1306 B/P Mean 97 11/22 1306 O2 Delivery Room air 11/22 1306 Temp 36.5 11/22 1306 Pulse 80 11/22 1306 Resp 18 11/22 1306 All vital signs available at the time of this entry have been reviewed. Condition Stable Clinical Impression Clinical Impression Primary Impression: Abdominal bloating Disposition Decision Discharge )( Discharged to Home Yes )( Time 1240 )( Date 11/23/19 Discharge/Care Plan Counseled Regarding Diagnosis, Lab results, Imaging studies, Prescriptions, Need for follow-up, When to return to ED Prescriptions Bentyl, Simethicone, and Senna-Docusate Referrals Morgan Huerta MD (PCP/Family) Quality Measures 12-Lead ECG for CP Performed documented Smoking Cessation Screened, non user at 1328 RPT #:[id number] END OF REPORT [facility] 2019-11-19 16:34:00 [facility] ([facility]) EMERGENCY PROVIDER REPORT REPORT#:[id number] REPORT STATUS: Signed DATE:11/19/19 TIME: 1634 PATIENT: HAYLEY KATZ UNIT #: [id number] ROOM/BED: AGE: 64 SEX: F PCP PHYS: Morgan Huerta MD SERVICE AUTHOR: Jayme Kimball MD * ALL edits or amendments must be made on the electronic/computer document * HPI-Nausea/Vomit/Diarrhea General Initial Greet Date/Time 11/19/[address] Jef Huerta Presentation Chief Complaint Diarrhea, Abd pain, intermittent, Abd pain, cramping Free Text HPI Notes Free Text HPI Notes 64-year-old female presents with 4 days of watery diarrhea, diffuse intermittent cramping abdominal pain without vomiting. She denies any hematochezia, melena or chest pain. She denies any passing out. She reports mild shortness of breath. She denies any other medical problems. She denies recent antibiotic usage or hospitalization. She denies recent travel or suspicious foods. Review of Systems ROS Statements All systems rev neg except as marked. Basic Review of Systems Basic ROS EYES: No redness, CV: No chest pain, : No dysuria/frequency, MS: No ext swelling/pain Focused Review of Systems Constitutional Denies: Chills, Fatigue, Fever. Ears/Nose/Throat Denies: Nasal congestion, Sore throat. GI Reports: Abdominal pain, Diarrhea. Denies: Bloody/tarry stool, Constipation, Hematemesis, Hematochezia, Melena, Nausea, Vomiting. Skin Denies: Rash. Neurologic Denies: Lightheaded, Syncope. Additional Review of Systems Eyes Denies: Eye pain bilat. Respiratory Reports: Shortness of breath. Denies: Cough, non-productive, Cough, productive. Cardiovascular Denies: Chest pain. Female Denies: Dysuria, Flank pain, Hematuria. Allergy/Immun Denies: Rhinorrhea. Past Medical History - Adult Stated Complaint ABDOMINAL PAIN Allergies Coded Allergies: No Known Allergies (11/19/19) Home Medications Active Scripts PANTOPRAZOLE DR (PROTONIX) 40 MG PO [address] (PROTONIX) 40 MG PO 0600 #30 TAB Prov: 04/12/16 Reported Medications MIRTAZAPINE (REMERON) 15 MG PO BEDTIME FAMOTIDINE (PEPCID) 20 MG PO DAILY DULoxetine DR (CYMBALTA) 1 TAB PO BID FERROUS SULFATE (FEOSOL) 325 MG PO DAILY Past Medical History: Reports: Coronary artery disease, GERD/gastritis, Transient ischemic attack. Additional Medical History Depression. Past Surgical History: Reports: Appendectomy, Cholecystectomy, (x3). Additional Surgical History neck surgery Alcohol Use Denies EtOH use Drug Use Denies recreational drugs Smoking status for patients 13 years old or older: Never Smoker Other Social History Local resident Physical Exam Vital Signs Vital Signs First Documented: Result Date Time Pulse Ox 98 11/18 1624 B/P 155/78 11/18 1624 B/P Mean 103 11/18 1624 O2 Delivery Room air 11/18 1624 Temp 36.8 11/18 1624 Pulse 88 11/18 1624 Resp 16 11/18 162 Last Documented: Result Date Time Pulse Ox 98 11/18 1832 B/P 141/70 11/18 1832 B/P Mean 93 11/18 1832 Temp 36.7 11/18 183 Pulse 80 11/18 1833 Resp 16 11/18 183 O2 Delivery Room air 11/19 1623 Review of Vital Signs Reviewed Focused PE General/Const General/Const Awake, Alert, Well appearing Eyes Eyes PERRL Ears/Nose/Throat Ears/Nose/Throat Airway patent, Mucous membranes moist, Pharynx NL Resp/Chest Respiratory/Chest Breath sounds NL, Breath sounds = bilat, No respiratory distress, No rales, No rhonchi, No wheezing Cardiovascular Cardiovascular Heart rate NL, Regular rhythm, Heart sounds NL, Peripheral circulation NL Abdomen/GI Abdomen/GI Soft, McBurney's non-tender, No guarding, No rebound, No hernia, No palpable mass Text/Dict Notes hyperactive bowel sounds, distended in the upper abdomen. Tender to palpation over the right side of the abdomen. MS Back Back Inspection NL, Non-tender, No CVA tenderness Skin Skin Color NL, No rash, Warm, Dry, Turgor NL Neurologic Neurologic Oriented X3, Speech NL, No motor deficits, No sensory deficits Interpretation Diagnostics Lab Results Interpretation Results Laboratory Tests 11/19/19 1715: [Embedded Image Not Available] Laboratory Tests: 11/18 11/18 11/18 1730 1715 1715 Chemistry Troponin I (0 - 0.045 ng/mL) <0.015 B-Natriuretic Peptide (0 - 100 pg/mL) 41.0 Urines Urine Color (YELLOW) YELLOW Urine Appearance (CLEAR) SLIGHT CLOUDY H Urine pH (5.0 - 8.0) 8.0 Ur Specific [place] (1.001 - 1.035) 1.005 Urine Protein (Neg - 15 mg/dL) neg Urine Glucose (UA) (NEGATIVE mg/dL) norm Urine Ketones (NEGATIVE mg/dL) neg Urine Blood (NEGATIVE Óscar/uL) neg Urine Nitrite (NEGATIVE) NEGATIVE Urine Bilirubin (NEGATIVE mg/dL) NEGATIVE Urine Urobilinogen (0.0 - 0.2 mg/dL) norm Ur Leukocyte Esterase (NEGATIVE uL) 500 Bobby/uL (3+) H Urine RBC (0 - 5 per HPF) NONE SEEN Urine WBC (0 - 5 per HPF) 40-50 H Ur Epithelial Cells (Few per HPF) Rare (0-1/hpf) Urine Bacteria (NONE per HPF) TRACE Urine Mucus (NONE - FEW per LPF) FEW 11/18 1715 Chemistry Sodium (136 - 145 mmol/L) 146 H Potassium (3.5 - 5.1 mmol/L) 4.1 Chloride (101 - 109 mmol/L) 111 H Carbon Dioxide (21 - 32 mmol/L) 28.3 Anion Gap (10 - 20 mmol/L) 11 BUN (3 - 21 mg/dL) 26 H Creatinine (0.55 - 1.3 mg/dL) 0.71 Glomerular Filtr Rate (>=60 mL/min) > 60 BUN/Creatinine Ratio (10 - 20) 36.6 H Glucose (74 - 106 mg/dL) 101 Calcium (8.4 - 10.2 mg/dL) 7.9 L Total Bilirubin (0.0 - 1.0 mg/dL) 0.20 Direct Bilirubin (0.0 - 0.30 mg/dL) 0.00 AST (6 - 32 U/L) 26 ALT (12 - 78 U/L) 27 Total Alk Phosphatase (38 - 126 U/L) 118 Total Protein (6.5 - 8.4 g/dL) 6.4 L Albumin (3.4 - 4.8 g/dL) 3.0 L Globulin (1 - 10 G/DL) 3.4 Albumin/Globulin Ratio (0.75 - 1.50 RATIO) 0.88 Lipase (128 - 270 U/L) 155 Hematology WBC (4.5 - 12.5 K/mm3) 9.8 RBC (3.7 - 5.2 mill/mm3) 4.02 Hgb (11.5 - 15.5 gram/dL) 12.2 Hct (36.0 - 46.0 %) 37.6 MCV (80 - 98 fL) 93.5 MCH (27.0 - 33.0 picogram) 30.3 MCHC (33.0 - 36.0 gram/dL) 32.4 L RDW (11.6 - 16.2 %) 12.9 RDW Std Deviation (37.0 - 51.0 fL) 45.0 Plt Count (150 - 450 K/mm3) 253 MPV (6.7 - 11.0 fL) 9.2 Microbiology: Date/Time Procedure - Status Source Growth 11/18 1729 Urine Culture - RECD URINE Recent Impressions: RADIOLOGY - XR ABDOMEN 2V 11/18 1704 Report Impression - Status: SIGNED Entered: 11/19/20191741 IMPRESSION: No acute infiltrates, effusion or congestion. 2 view abdomen: No free air. No bowel obstruction. Patient is post cholecystectomy. Scattered fecal material. No pathologic constipation is. DJD of the lower lumbar spine. IMPRESSION: No free air or obstruction. Impression By: Dariel Khan M.D. RADIOLOGY - XR CHEST 1 V 11/18 1704 Report Impression - Status: SIGNED Entered: 11/19/20191741 IMPRESSION: No acute infiltrates, effusion or congestion. 2 view abdomen: No free air. No bowel obstruction. Patient is post cholecystectomy. Scattered fecal material. No pathologic constipation is. DJD of the lower lumbar spine. IMPRESSION: No free air or obstruction. Impression By: Dariel Khan M.D. Point of Care Testing Pulse Oximetry Pulse Ox % 98 On: Room air Interpretation Interpreted by sd Time 1639 Re-Evaluation MDM Free Text MDM Notes Free Text MDM Notes 64-year-old female presents with 3 to 4 days of diarrheal illness with intermittent diffuse abdominal cramping. She has a history of appendectomy, cholecystectomy, previous adhesions with exploratory laparotomy with lysis of adhesions and hysterectomy. She has no risk factors for C. difficile other than age. She admits to shortness of breath and therefore will be swabbed for COVID- 19. Re-Evaluation/Progress #1 Text/Dict Note Patient had improvement of symptoms on the emergency department. There were no episodes of vomiting. Chest x-ray and abdominal x-ray without significant signs of bowel obstruction or dilated loops of colon to suggest severe colitis. Patient is without any acute kidney injury or significant leukocytosis on lab testing. Urinalysis likely reflects sterile pyuria from enteritis or colitis. Despite this patient had a urine culture reflexively sent from the lab. She was giving a pack of rescue Keflex in case she develops urinary symptoms or urine culture comes back positive. Time of Re-Eval 1820 ED Course Medication(s) Ordered Medication(s) Ordered: Autonomic Drugs Sig/Carla Start time Last Medication Dose Route Stop Time Status Admin Dicyclomine HCl 10 MG X1ED STA 11/18 1634 DC 11/18 PO 11/18 1635 1644 Central Nervous System Agents Sig/Carla Start time Last Medication Dose Route Stop Time Status Admin Acetaminophen 1,000 MG X1ED STA 11/18 1634 DC 11/18 PO 11/18 1635 1644 Electrolytic, Caloric, And Juliocesar Sig/Carla Start time Last Medication Dose Route Stop Time Status Admin Sodium Chloride 500 ML X1ED STA 11/18 1625 DC 11/18 IV 11/18 1654 1647 Patient Discharge Departure Vital Signs/Condition Vital Signs First Documented: Result Date Time Pulse Ox 98 11/18 1624 B/P 155/78 11/18 1624 B/P Mean 103 11/18 1624 O2 Delivery Room air 11/18 1624 Temp 36.8 11/18 1624 Pulse 88 11/18 1624 Resp 16 11/18 1624 Last Documented: Result Date Time Pulse Ox 98 11/18 1833 B/P 141/70 11/18 1833 B/P Mean 93 11/18 1833 Temp 36.7 11/18 1833 Pulse 80 11/18 1833 Resp 16 11/18 1833 O2 Delivery Room air 11/18 1624 All vital signs available at the time of this entry have been reviewed. Condition Improved, Stable Clinical Impression Clinical Impression Primary Impression: Gastroenteritis Secondary Impressions: Person under investigation for COVID-19 Disposition Decision Discharge )( Discharged to Home Yes )( Time 1808 )( Date 11/19/19 Discharge/Care Plan Counseled Regarding Diagnosis, Lab results, Imaging studies, Prescriptions, Need for follow-up, When to return to ED Prescriptions Bentyl, rescue keflex if UTI symptoms develop, Zofran Referrals Lilly Zarate MD at 0710 RPT #:[id number] END OF REPORT [facility] 2019-02-25 10:04:00 [facility] ([facility]) EMERGENCY PROVIDER REPORT REPORT#:[id number] REPORT STATUS: Signed DATE:02/25/19 TIME: 1004 PATIENT: HAYLEY KATZ UNIT #: [id number] ROOM/BED: AGE: 64 SEX: F PCP PHYS: Zarate,Lilly J MD SERVICE DT: AUTHOR: Peewee Stokes DO * ALL edits or amendments must be made on the electronic/computer document * HPI-Hand Prob/Inj General Confirmed Patient Yes Initial Greet Date/Time 02/25/19 1003 Presentation Chief Complaint Hand pain R, Hand pain L Hx Obtained From Patient Onset Occurred Gradual, Days ago Symptom Duration Since onset Progression since Onset Unchanged Caused by No trauma by history Quality Painful Radiation Does not radiate Severity: Onset Moderate Severity: Current Moderate Associated with Denies: Cold extremity, Fever, Joint swelling, Neuro symptoms pre-arriv, Numbness, Rash, Swollen extremity, Weak extremity, Weakness. Associated Other Pt denies other symptoms Exacerbated by Nothing Relieved by Nothing Free Text HPI Notes Free Text HPI Notes The patient is a 64-year-old female chief complaint of bilateral hand pain. She states this started without inciting incident or trauma several days ago and has been. She reports she has a history of carpal tunnel and states this feels similar. Pain is in both hands. Is described as painful. She states it radiates to her distal forearms intermittently. No aggravating or relieving factors. No additional complaints including numbness, tingling, weakness, fever , chills, sweats, rash, injury, chest pain, back pain, neck pain or headache. The patient has not taken any medication for her discomfort at home. She states she is an appointment with her PCP today at 3 PM. Review of Systems ROS Statements Complete sys rev neg except as marked. Focused Review of Systems Constitutional Denies: Chills, Fatigue, Fever, Lethargy, Malaise, Recent wt loss, Weakness - generalized. Musculoskeletal Reports: Extremity pain. Denies: Back pain, Extremity swelling, Joint pain, Joint swelling, Lumbar pain, Myalgia, Neck pain, Thoracic pain. Neurologic Denies: Dizziness, Focal weakness, Generalized weakness, Headache, Lightheaded, Numbness, Tingling. Past Medical History - Adult Stated Complaint RT ARM PAIN Allergies Coded Allergies: No Known Allergies (08/19/17) Home Medications Active Scripts PANTOPRAZOLE DR (PROTONIX) 40 MG PO [address] (PROTONIX) 40 MG PO 0600 #30 TAB Prov: 04/12/16 Reported Medications MIRTAZAPINE (REMERON) 15 MG PO BEDTIME FAMOTIDINE (PEPCID) 20 MG PO DAILY DULoxetine DR (CYMBALTA) 1 TAB PO BID FERROUS SULFATE (FEOSOL) 325 MG PO DAILY Past Medical History: Reports: Coronary artery disease, GERD/gastritis, Transient ischemic attack. Additional Medical History Depression. Past Surgical History: Reports: Appendectomy, Cholecystectomy, (x3). Additional Surgical History neck surgery Alcohol Use Denies EtOH use Drug Use Denies recreational drugs Smoking status for patients 13 years old or older: Unknown,if ever smoked Other Social History Local resident Physical Exam Vital Signs Vital Signs First Documented: Result Date Time Pulse Ox 100 02/25 1000 B/P 137/62 02/25 1000 B/P Mean 87 02/25 1000 O2 Delivery Room air 02/25 1000 Temp 37.1 02/25 1000 Pulse 80 02/25 1000 Resp 16 02/25 1000 Last Documented: Result Date Time Pulse Ox 100 02/25 1000 B/P 137/62 02/25 1000 B/P Mean 87 02/25 1000 O2 Delivery Room air 02/25 1000 Temp 37.1 02/25 1000 Pulse 80 02/25 1000 Resp 16 02/25 1000 Review of Vital Signs Reviewed Focused PE General/Const General/Const Awake, Alert, Well appearing MS Wrist/Hand Wrist/Hand Atraumatic, Inspection NL, Full range of motion, No swelling, No erythema, Non-tender, No snuffbox tenderness, No deformity, Neurologic intact, Vascular intact, No ligamentous injury, Tendon function NL, No clubbing/cyanosis Skin Skin Color NL, Warm, Dry, Intact, Turgor NL, No swelling Neurologic Neurologic Oriented X3, Speech NL, No motor deficits, No sensory deficits Additional PE MS Head Head Atraumatic, Normocephalic Eyes Eyes PERRL MS Neck Neck Atraumatic, Supple, No meningismus, Full range of motion, No swelling, Non-tender, No midline vertebral tend Resp/Chest Respiratory/Chest Atraumatic, Breath sounds NL, Breath sounds = bilat, No respiratory distress, No rales, No rhonchi, No wheezing, No retractions, No stridor, No chest tenderness, No chest wall deformity, No crepitus Cardiovascular Cardiovascular Heart rate NL, Regular rhythm, Heart sounds NL, No gallop, No murmurs, No rubs, Cap refill not delayed, Peripheral circulation NL, Pulses = bilaterally, No gross BP differential MS Upper Extrem Upper Extremity/MS Atraumatic, Inspection NL, Full range of motion, No swelling, Non-tender, No snuffbox tenderness, No erythema, No deformity, Neurologic intact, Vascular intact, No compartment syndrome, No circumferential injury, No clubbing/cyanosis, No edema Re-Evaluation MDM ED Course Medication(s) Ordered Medication(s) Ordered: Central Nervous System Agents Sig/Carla Start time Last Medication Dose Route Stop Time Status Admin Ibuprofen 800 MG X1ED STA 02/25 1003 DC PO 02/25 1004 Patient Discharge Departure Vital Signs/Condition Vital Signs First Documented: Result Date Time Pulse Ox 100 02/25 1000 B/P 137/62 02/25 1000 B/P Mean 87 02/25 1000 O2 Delivery Room air 02/25 1000 Temp 37.1 02/25 1000 Pulse 80 02/25 1000 Resp 16 02/25 1000 Last Documented: Result Date Time Pulse Ox 100 02/25 1000 B/P 137/62 02/25 1000 B/P Mean 87 02/25 1000 O2 Delivery Room air 02/25 1000 Temp 37.1 02/25 1000 Pulse 80 02/25 1000 Resp 16 02/25 1000 All vital signs available at the time of this entry have been reviewed. Clinical Impression Clinical Impression Primary Impression: Bilateral hand pain Disposition Decision Discharge )( Discharged to Home Yes )( Time 1013 )( Date 02/25/19 Discharge/Care Plan Counseled Regarding Diagnosis, Need for follow-up, When to return to ED at 1019 RPT #:[id number] END OF REPORT [facility] 2018-09-09 17:25:00 [facility] ([facility]) EMERGENCY PROVIDER REPORT REPORT#:[id number] REPORT STATUS: Signed DATE:09/09/18 TIME: 1724 PATIENT: HAYLEY KATZ UNIT #: [id number] ROOM/BED: AGE: 63 SEX: F PCP PHYS: Lilly Zarate MD SERVICE AUTHOR: Cheyanne Quiroga DO * ALL edits or amendments must be made on the electronic/computer document * HPI-Chest Pain 40 and Over General Confirmed Patient Yes Initial Greet Date/Time 09/09/18 1717 Presentation Chief Complaint Chest pain Hx Obtained From Patient Sudden in Onset? Yes Onset Occurred Today Symptom Duration Since onset Progression since Onset Unchanged Context of Onset At rest Location Substernal Quality Painful Radiation No: Does not radiate. )( Migration/Movement None Severity: Onset Moderate Severity: Current Moderate Associated with Reports: Palpitations, Shortness of Breath. Denies: Syncope. Exacerbated by Nothing Relieved by Nothing Free Text HPI Notes Free Text HPI Notes 63 y/o female with PMHx of depression presents to ER with chest pain that started today. Pt states that that she had sudden onset of chest that started today after she found out her brother . Her symptoms improved after she received 5 mg of versed from EMS. Her chest pain is associated with dyspnea, palpitations, and a near syncopal event. Portions of this section were scribed by Keila Ariza on 09/09/18 at 1917 Risk-Chest Pain 40 and Over Risk Stratification )( Coronary Artery Disease Risk factors reviewed )( Thoracic Aortic Dissection Risk factors reviewed )( Pulmonary Embolism Risk factors reviewed )( AMI-Aspirin Aspirin Last 24 Hrs None )( HEART for MACE )( HEART for MACE Response Value History Low index of suspicion 0 ECG Interpretation Normal ECG 0 Age Age 65 or over 2 Risk Factors for CAD 1-2 CAD risk factors 1 Troponin < or = to NL troponin 0 Total 3 Portions of this section were scribed by Keila Ariza on 09/09/18 at 1741 Review of Systems ROS Statements All systems rev neg except as marked. Focused Review of Systems Respiratory Reports: Shortness of breath. Denies: Wheezing. Cardiovascular Reports: Chest pain, Palpitations. Neurologic Denies: Syncope (near ). Portions of this section were scribed by Keila Ariza on 09/09/18 at 1741 Past Medical History - Adult Stated Complaint ANXIETY Allergies Coded Allergies: No Known Allergies (08/19/17) Home Medications Active Scripts PANTOPRAZOLE DR (PROTONIX) 40 MG PO [address] (PROTONIX) 40 MG PO 0600 #30 TAB Prov: 04/12/16 Reported Medications MIRTAZAPINE (REMERON) 15 MG PO BEDTIME FAMOTIDINE (PEPCID) 20 MG PO DAILY DULoxetine DR (CYMBALTA) 1 TAB PO BID FERROUS SULFATE (FEOSOL) 325 MG PO DAILY Past Medical History: Reports: Coronary artery disease, GERD/gastritis, Transient ischemic attack. Additional Medical History Depression. Past Surgical History: Reports: Appendectomy, Cholecystectomy, (x3). Additional Surgical History neck surgery Alcohol Use Denies EtOH use Drug Use Denies recreational drugs Smoking status for patients 13 years old or older: Unknown,if ever smoked Other Social History Local resident Portions of this section were scribed by Keila Ariza on 09/09/18 at 1725 Physical Exam Vital Signs Vital Signs First Documented: Result Date Time Pulse Ox 100 09/09 171 B/P 123/71 09/09 1715 B/P Mean 88 09/09 1715 O2 Delivery Room air 09/09 171 Temp 36.7 09/09 1715 Pulse 52 09/09 1715 Resp 16 09/09 1715 Last Documented: Result Date Time Pulse Ox 100 09/09 1735 B/P 123/71 09/09 1715 B/P Mean 88 09/09 1715 O2 Delivery Room air 09/09 171 Temp 36.7 09/09 1715 Pulse 52 09/09 1715 Resp 16 09/09 1715 Review of Vital Signs Reviewed Focused PE General/Const General/Const Awake, Alert, No acute distress, Well developed Behavior Tearful. Eyes Eyes Atraumatic, EOMI MS Neck Neck Supple, Full range of motion, No adenopathy Resp/Chest Respiratory/Chest No respiratory distress, No rales, No rhonchi, No wheezing, No stridor, No chest tenderness Cardiovascular Cardiovascular Heart rate NL, Regular rhythm, Heart sounds NL Abdomen/GI Abdomen/GI Soft, Non-tender, No guarding, No rebound, No distention MS Back Back No CVA tenderness MS Lower Extrem Lower Ext/Pelvis/MS No edema Skin Skin Color NL, No rash, Warm, Dry, Intact Neurologic Neurologic Oriented X3, Speech NL, No motor deficits, No sensory deficits Psychiatric Psychiatric Mood NL Additional PE MS Head Head Atraumatic, Normocephalic Ears/Nose/Throat Ears/Nose/Throat Atraumatic, Airway patent, Mucous membranes moist, Pharynx NL Portions of this section were scribed by Keila Ariza on 09/09/18 at 1834 Interpretation Diagnostics Lab Results Interpretation Results Laboratory Tests 09/09/18 1816: [Embedded Image Not Available] 09/09/18 1618: [Embedded Image Not Available] Laboratory Tests: 09/09 1816 1618 Chemistry Sodium (136 - 145 mmol/L) 139 Potassium (3.5 - 5.1 mmol/L) 3.7 Chloride (98 - 107 mmol/L) 106.0 Carbon Dioxide (21 - 32 mmol/L) 28.0 Anion Gap (10 - 20) 8.7 L BUN (7 - 18 mg/dL) 20 H Creatinine (0.55 - 1.02 mg/dL) 0.70 Glomerular Filtr Rate (>=60 mL/min) > 60 BUN/Creatinine Ratio (10 - 20) 28.6 H Glucose (74 - 106 mg/dL) 104 Calcium (8.5 - 10.1 mg/dL) 8.5 Rapid Troponin I (<0.08 ng/mL) 0.00 Troponin I (0 - 0.045 ng/mL) <0.015 Hematology WBC (4.5 - 12.5 K/mm3) 6.6 RBC (3.7 - 5.2 mill/mm3) 4.24 Hgb (11.5 - 15.5 gram/dL) 12.9 Hct (36.0 - 46.0 %) 39.9 MCV (80 - 98 fL) 94.1 MCH (27.0 - 33.0 picogram) 30.4 MCHC (33.0 - 36.0 gram/dL) 32.3 L RDW (11.6 - 16.2 %) 13.0 Plt Count (150 - 450 K/mm3) 236 MPV (6.7 - 11.0 fL) 10.2 Recent Impressions: RADIOLOGY - XR CHEST 1 V 09/09 1724 Report Impression - Status: SIGNED Entered: 09/09/2018 175 IMPRESSION: No active disease. Impression By: Mallory Castro M.D. Lab Imaging Statement Laboratory radiographic studies reviewed and considered in the medical decision-making. Point of Care Testing Pulse Oximetry Pulse Ox % 100 On: Room air Interpretation Interpreted by me, Pulse oximetry normal Time 1715 ECG #1 Interpretation Date 09/09/18 Time 182 Interpreted by ED physician SHWETA ECG Interpretation Normal sinus rhythm, No acute ischemic changes, No STEMI, Normal intervals Rate 82 Portions of this section were scribed by Keila Ariza on 09/09/18 at 1917 Re-Evaluation MDM Re-Evaluation/Progress #1 Text/Dict Note Her anxiety has improved and she is feeling much better. The pt will be discharge home with resources for grief management. Time of Re-Eval 1916 Re-Eval Status Improved Portions of this section were scribed by Keila Ariza on 09/09/18 at 1917 Patient Discharge Departure Vital Signs/Condition Vital Signs First Documented: Result Date Time Pulse Ox 100 09/09 1715 B/P 123/71 / 1715 B/P Mean 88 09/09 1715 O2 Delivery Room air 09/09 1715 Temp 36.7 09/09 1715 Pulse 52 09/09 1715 Resp 16 09/09 1715 Last Documented: Result Date Time Pulse Ox 100 09/09 1735 B/P 123/71 / 1715 B/P Mean 88 09/09 1715 O2 Delivery Room air 09/09 1715 Temp 36.7 / 1715 Pulse 52 09/09 1715 Resp 16 09/09 1715 All vital signs available at the time of this entry have been reviewed. Clinical Impression Clinical Impression Primary Impression: Chest pain Secondary Impressions: Anxiety Disposition Decision Discharge )( Discharged to Home Yes )( Time 1916 )( Date 09/09/18 Discharge/Care Plan Counseled Regarding Diagnosis, Lab results, Imaging studies, Need for follow-up, When to return to ED Quality Measures BP F/U for HTN F/u with PCP/other doc Smoking Cessation Screened, non user Supervising Physician Note Scribe Statement By signing my name below, I, Keila Ariza, attest that this document has been prepared under the direction and in the presence of Dr. Junaid MD. Electrically signed: Lorene Ann. Date: 09/09/18. Time: 1745 Provider Scribed Statement I personally performed the services described in this documentation and reviewed the documentation that was dictated to the scribe(s) in my presence, and it accurately records my words and actions. Cheyanne Quiroga, 09/09/18 Portions of this section were scribed by Keila Ariza on 09/09/18 at 1917 at 1951 RPT #:[id number] END OF REPORT [facility] 2018-08-22 16:09:00 [facility] ([facility]) EMERGENCY PROVIDER REPORT REPORT#:[id number] REPORT STATUS: Signed DATE:08/22/18 TIME: 160 PATIENT: HAYLEY KATZ UNIT #: [id number] ROOM/BED: AGE: 63 SEX: F PCP PHYS: Lilly Zarate MD SERVICE AUTHOR: Cornell Solares MD * ALL edits or amendments must be made on the electronic/computer document * HPI-Abd Pain F 40 and Over General Initial Greet Date/Time 08/22/18 1456 Presentation Chief Complaint Abdominal pain Sudden in Onset? No Free Text HPI Notes Free Text HPI Notes PMHx , CAD, GERD, multiples abdominal surgeries in the past, c/o 12 hours of mod to severe rigt sided abd pain sharp 7/10 no radiated, denies chills, chest pain, rash, shortness of breath other GI or symptoms. last BM 2 days ago. Risk-Abd Pain F 40 and Over )( Abdominal Aortic Aneurysm Risk factors reviewed, No risk factors Review of Systems ROS Statements All systems rev neg except as marked. Basic Review of Systems Basic ROS EYES: No redness, NEURO: No change MS, NEURO: No focal deficit, PSYCH: NL thought content Focused Review of Systems Constitutional Denies: Chills, Fever, Malaise. Respiratory Denies: Cough, non-productive, Cough, productive, Pleuritic pain, Shortness of breath, Wheezing. Cardiovascular Denies: Chest pain, Palpitations. GI Reports: Abdominal pain. Denies: Constipation, Dysphagia, Nausea, Vomiting. Musculoskeletal Denies: Myalgia, Neck pain. Past Medical History - Adult Stated Complaint ABDOMINAL PAIN Allergies Coded Allergies: No Known Allergies (08/19/17) Home Medications Active Scripts PANTOPRAZOLE DR (PROTONIX) 40 MG PO [address] (PROTONIX) 40 MG PO 0600 #30 TAB Prov: 04/12/16 Reported Medications MIRTAZAPINE (REMERON) 15 MG PO BEDTIME FAMOTIDINE (PEPCID) 20 MG PO DAILY DULoxetine DR (CYMBALTA) 1 TAB PO BID FERROUS SULFATE (FEOSOL) 325 MG PO DAILY Review of Nursing Notes Rev avail, and agree Past Medical History: Reports: Coronary artery disease, GERD/gastritis, Transient ischemic attack. Additional Medical History Depression. Past Surgical History: Reports: Appendectomy, Cholecystectomy, (x3). Additional Surgical History neck surgery Alcohol Use Denies EtOH use Drug Use Denies recreational drugs Smoking status for patients 13 years old or older: Never Smoker Other Social History Local resident Physical Exam Vital Signs Vital Signs First Documented: Result Date Time Pulse Ox 97 08/22 1501 B/P 155/86 08/22 1501 B/P Mean 109 08/22 1501 O2 Delivery Room air 08/22 1501 Temp 36.7 08/22 1501 Pulse 97 08/22 1501 Resp 16 08/22 1501 Last Documented: Result Date Time Pulse Ox 98 08/22 1738 B/P 173/91 08/22 1738 B/P Mean 118 08/22 1738 O2 Delivery Room air 08/22 1738 Temp 36.9 08/22 1738 Pulse 86 08/22 1738 Resp 16 08/22 1738 Review of Vital Signs Reviewed, Vital signs abnormal Basic Physical Exam Basic PE HEAD: Atraumatic/NC, SKIN: No rashes, warm/dry, NEURO: alert oriented , NEURO: gross movement NL, PSYCH: NL thought content Focused PE General/Const General/Const Awake, Alert, No acute distress, Well developed, Well hydrated, Not toxic appearing Resp/Chest Respiratory/Chest Atraumatic, Breath sounds NL, Breath sounds = bilat, No respiratory distress, No wheezing Abdomen/GI Tenderness/Guarding/Rebound Tender RLQ, Tender periumbilical, Guarding voluntary, Rebound localized. Negative: Tender RUQ, Tender LUQ, Tender LLQ, Tender epigastric, Tender suprapubic, Tender diffuse, Tender flank R, Tender flank L, Gonzalez's sign positive, McBurney's point tender, Guarding involuntary, Rebound diffuse, Rigid to palpation. MS Back Back Atraumatic, Inspection NL, Full range of motion, Painless range of motion, No midline vertebral tend, No muscle spasm Neurologic Neurologic Oriented X3, Speech NL Interpretation Diagnostics Lab Results Interpretation Results Laboratory Tests 08/22/18 1615: [Embedded Image Not Available] Laboratory Tests: 08/22 08/22 1620 1615 Chemistry Sodium (135 - 148 mmol/L) 143 Potassium (3.5 - 5.1 mmol/L) 3.7 Chloride (101 - 109 mmol/L) 108 Carbon Dioxide (21 - 32 mmol/L) 26.2 Anion Gap (10 - 20 mmol/L) 13 BUN (3 - 21 mg/dL) 18 Creatinine (0.55 - 1.3 mg/dL) 0.67 BUN/Creatinine Ratio (10 - 20) 26.9 H Glucose (74 - 106 mg/dL) 103 Lactic Acid (0.4 - 1.9 MMOL/L) 1.5 Calcium (8.4 - 10.2 mg/dL) 8.7 Total Bilirubin (0.0 - 1.0 mg/dL) 0.30 AST (6 - 32 U/L) 25 ALT (12 - 78 U/L) 29 Total Alk Phosphatase (38 - 126 U/L) 124 Total Protein (6.5 - 8.4 g/dL) 7.0 Albumin (3.4 - 4.8 g/dL) 3.4 Globulin (1 - 10 G/DL) 3.6 Albumin/Globulin Ratio (0.75 - 1.50 RATIO) 0.9 Lipase (128 - 270 U/L) 141 Hematology WBC (4.5 - 12.5 K/mm3) 7.0 RBC (3.7 - 5.2 mill/mm3) 3.82 Hgb (11.5 - 15.5 gram/dL) 12.1 Hct (36.0 - 46.0 %) 36.3 MCV (80 - 98 fL) 95.0 MCH (27.0 - 33.0 picogram) 31.7 MCHC (33.0 - 36.0 gram/dL) 33.3 RDW (11.6 - 16.2 %) 13.4 RDW Std Deviation (39.1 - 52.0 fL) 44.4 Plt Count (150 - 450 K/mm3) 230 MPV (6.7 - 11.0 fL) 10.1 Neut % (Auto) (39.0 - 69.0 %) 41.6 Lymph % (Auto) (25.0 - 55.0 %) 43.6 [place] % (Auto) (0.0 - 10.0 %) 11.1 H Eos % (Auto) (0.0 - 5.0 %) 3.0 Baso % (Auto) (0.0 - 1.0 %) 0.7 Neut # (Auto) (1.8 - 7.7 K/mm3) 2.91 Lymph # (Auto) (1.0 - 5.0 K/mm3) 3.05 [place] # (Auto) (0 - 0.8 K/mm3) 0.78 Eos # (Auto) (0.0 - 0.5 K/mm3) 0.21 Baso # (Auto) (0.0 - 0.2 K/mm3) 0.05 Add Manual Diff NO 08/22 1542 Urines Urine Color (YELLOW) YELLOW Urine Appearance (CLEAR) CLEAR Urine pH (5.0 - 8.0) 7.0 Ur Specific [place] (1.001 - 1.035) 1.010 Urine Protein (Neg - 15 mg/dL) neg Urine Glucose (UA) (NEGATIVE mg/dL) norm Urine Ketones (NEGATIVE mg/dL) neg Urine Blood (NEGATIVE Óscar/uL) neg Urine Nitrite (NEGATIVE) NEGATIVE Urine Bilirubin (NEGATIVE mg/dL) NEGATIVE Urine Urobilinogen (0.0 - 0.2 mg/dL) norm Ur Leukocyte Esterase (NEGATIVE uL) 25 Bobby/uL (Trace) H Urine RBC (0 - 5 per HPF) 0-2 Urine WBC (0 - 5 per HPF) 0-5 Ur Epithelial Cells (Few per HPF) Rare (0-1/hpf) Urine Bacteria (NONE per HPF) FEW Urine HCG, Qual NEGATIVE Recent Impressions: CAT SCAN - CT ABD PELVIS W/CONT 08/22 1644 Report Impression - Status: SIGNED Entered: 08/22/2018 1723 IMPRESSION: No acute intra-abdominal process. Impression By: Rosalba - Isabell Vikki D.O. Lab Imaging Statement Laboratory radiographic studies reviewed and considered in the medical decision-making. Point of Care Testing Pulse Oximetry Pulse Ox % 97 On: Room air Interpretation Interpreted by sd, Pulse oximetry normal Time 1501 Re-Evaluation MDM Free Text MDM Notes Free Text MDM Notes mil distress due to pain cbcm, cmp, lipase, CT abd ordered Iv fluids+zofran+morphine. )( Re-Evaluation/Progress #1 Text/Dict Note cbc, cmp, ua: wnl ct abd: wnl pain improved warning signs ed rec given Time of Re-Eval 1714 )( Re-Eval Status Improved Abd Pain MDM Note F > 40 The patient is resting comfortably and feels better, is alert and in no distress. The repeat examination is unremarkable and benign; in particular, there is no discomfort at McBurney's point and there is no pulsatile mass. The history, exam, diagnostic testing, and current condition do not suggest acute appendicitis, bowel obstruction, acute cholecystitis, bowel perforation, major gastrointestinal bleeding, severe diverticulitis, abdominal aortic aneurysm, mesenteric ischemia, volvulus, sepsis, or other significant pathology to warrant further testing, continued ED treatment, admission, or surgical evaluation at this point. The vital signs have been stable. The patient does not have uncontrollable pain, intractable vomiting, or other significant symptoms. The patient's condition is stable and appropriate for discharge from the emergency department. The patient will pursue further outpatient evaluation with the primary care physician or other designated or consulting physician as indicated in the discharge instructions. ED Course Medication(s) Ordered Medication(s) Ordered: Central Nervous System Agents Sig/Carla Start time Last Medication Dose Route Stop Time Status Admin Morphine Sulfate 2 MG X1ED STA 08/22 1609 DC 08/22 IV 08/22 1610 1615 Diagnostic Agents Sig/Carla Start time Last Medication Dose Route Stop Time Status Admin Iopamidol 0 .STK-MED ONE 08/22 1647 DC 08/22 .ROUTE 1648 Gastrointestinal Drugs Sig/Carla Start time Last Medication Dose Route Stop Time Status Admin Ondansetron HCl 4 MG X1ED STA 08/22 1609 DC 08/22 IV 08/22 1610 1615 Patient Discharge Departure Vital Signs/Condition Vital Signs First Documented: Result Date Time Pulse Ox 97 08/22 1501 B/P 155/86 08/22 1501 B/P Mean 109 08/22 1501 O2 Delivery Room air 08/22 1501 Temp 36.7 08/22 1501 Pulse 97 08/22 1501 Resp 16 08/22 1501 Last Documented: Result Date Time Pulse Ox 98 08/22 1738 B/P 173/91 08/22 173 B/P Mean 118 08/228 O2 Delivery Room air 08/22 1737 Temp 36.9 08/22 1738 Pulse 86 08/22 1738 Resp 16 08/22 1738 All vital signs available at the time of this entry have been reviewed. Clinical Impression Clinical Impression Primary Impression: Abdominal pain Disposition Decision Discharge )( Discharged to Home Yes )( Time 1728 )( Date 08/22/18 Discharge/Care Plan Counseled Regarding Diagnosis, Lab results, Imaging studies, Prescriptions, Need for follow-up, When to return to ED Prescriptions bentyl Prescriptions Reviewed Risks, Benefits Discharge Note I have spoken with the patient and/or caregivers. I have explained the patient's condition, diagnoses and treatment plan based on the information available to me at this time. I have answered the patient's and/or caregiver's questions and addressed any concerns. The patient and/or caregivers have as good an understanding of the patient's diagnosis, condition and treatment plan as can be expected at this point. The vital signs have been stable. The patient's condition is stable and appropriate for discharge from the emergency department. The patient will pursue further outpatient evaluation with the primary care physician or other designated or consulting physician as outlined in the discharge instructions. The patient and/or caregivers are agreeable to this plan of care and follow-up instructions have been explained in detail. The patient and/or caregivers have received these instructions in written format and have expressed an understanding of the discharge instructions. The patient and/or caregivers are aware that any significant change in condition or worsening of symptoms should prompt an immediate return to this or the closest emergency department or a call to 911. Quality Measures BP F/U for HTN Referred for BP f/u < 4wk Smoking Cessation Screened, non user at 1131 RPT #:[id number] END OF REPORT [facility] 2018-06-08 13:20:00 [facility] ([facility]) EMERGENCY PROVIDER REPORT REPORT#:[id number] REPORT STATUS: Signed DATE:06/08/18 TIME: 1320 PATIENT: HAYLEY KATZ UNIT #: [id number] ROOM/BED: AGE: 63 SEX: F PCP PHYS: Lilly Zarate MD SERVICE AUTHOR: Ab Harley MD * ALL edits or amendments must be made on the electronic/computer document * HPI-General Illness General Initial Greet Date/Time 06/08/18 1151 Presentation Chief Complaint Abdominal pain Context Additional Context Pleasant feamle. PMH of CVA, schizoaffective disocrder, anxity, htn, hypothyroid with abd pain. Diffuse. 2 days. Crampy. NO vomiting, diarreha. Denies burning on urination however been going more frequently. No cp, sob. Feels simlar to gsatritis that she was dx in past. No black/blook in stool. Pxhx of appendectomy , hysterctomy. Review of Systems ROS Statements All systems rev neg except as marked. Past Medical History - Adult Stated Complaint ABDOMINAL PAIN Allergies Coded Allergies: No Known Allergies (08/19/17) Home Medications Active Scripts PANTOPRAZOLE DR (PROTONIX) 40 MG PO [address] (PROTONIX) 40 MG PO 0600 #30 TAB Prov: 04/12/16 Reported Medications MIRTAZAPINE (REMERON) 15 MG PO BEDTIME FAMOTIDINE (PEPCID) 20 MG PO DAILY DULoxetine DR (CYMBALTA) 1 TAB PO BID FERROUS SULFATE (FEOSOL) 325 MG PO DAILY Review of Nursing Notes Rev avail, and agree Pt reports no significant: Past medical history, Past surgical history, Family history, Social history Physical Exam Vital Signs Vital Signs First Documented: Result Date Time Pulse Ox 99 06/08 1200 B/P 131/74 06/08 1200 B/P Mean 93 06/08 1200 Temp 36.4 06/08 1200 Pulse 79 06/08 1200 Resp 18 06/08 1200 O2 Delivery Room air 06/08 1338 Last Documented: Result Date Time Pulse Ox 99 06/08 1338 B/P 110/80 06/08 1338 B/P Mean 90 06/08 1338 O2 Delivery Room air 06/08 1338 Pulse 80 06/08 1338 Resp 18 06/08 1338 Temp 36.4 06/08 1200 Review of Vital Signs Reviewed Basic Physical Exam Basic PE GEN: Well appearing/NAD, HEAD: Atraumatic/NC, EYES: PERRL, conj clear, ENT: Membranes moist, NECK: Supple, RESP: No resp distress, CV: Reg rate rhythm, EXT: No gross abnormality, SKIN: No rashes, warm/dry, NEURO: gross movement NL Physical Exam Ears/Nose/Throat Ears/Nose/Throat Atraumatic, Airway patent, Mucous membranes moist, Pharynx NL, No peritonsillar abscess, No pooling of secretions, No trismus, Tympanic membs NL, Ext aud canal NL, Mastoid area NL, Nose exam NL, No sinus tenderness, No facial swelling, Gums/dentition NL MS Neck Neck Supple, No meningismus, Full range of motion, No adenopathy Resp/Chest Respiratory/Chest Atraumatic, Breath sounds NL, Breath sounds = bilat, No respiratory distress, No rales, No rhonchi, No wheezing, No retractions, No stridor, No chest tenderness, No chest wall deformity, No crepitus Cardiovascular Cardiovascular Heart rate NL, Regular rhythm, Heart sounds NL, No gallop Abdomen/GI Abdomen/GI Soft, McBurney's non-tender, No guarding, Diffuse nontspecfic tenderness. Greatest in the epigastric MS Back Back Inspection NL, Painless range of motion, Non-tender, No midline vertebral tend Interpretation Diagnostics Lab Results Interpretation Results Laboratory Tests: 06/08 1224 Urines Urine Color (YELLOW) YELLOW Urine Appearance (CLEAR) hazy Urine pH (5.0 - 8.0) 7.0 Ur Specific [place] (1.001 - 1.035) 1.030 Urine Protein (Neg - 15 mg/dL) 15 (TRACE) H Urine Glucose (UA) (NEGATIVE mg/dL) NORMAL Urine Ketones (NEGATIVE mg/dL) neg Urine Blood (NEGATIVE Óscar/uL) neg Urine Nitrite (NEGATIVE) NEGATIVE Urine Bilirubin (NEGATIVE mg/dL) NEGATIVE Urine Urobilinogen (0.0 - 0.2 mg/dL) norm Ur Leukocyte Esterase (NEGATIVE uL) 500/uL (3+) H Urine RBC (0 - 5 per HPF) 0-3 Urine WBC (0 - 5 per HPF) 20-30 H Ur Epithelial Cells (Few per HPF) Few (2-5/hpf) Amorphous Sediment (NONE per LPF) MODERATE H Urine Bacteria (NONE per HPF) MODERATE H Hyaline Casts (0 - 2 per LPF) 0-2 Urine Mucus (NONE - FEW per LPF) FEW Microbiology: Date/Time Procedure - Status Source Growth 06/08 1224 Urine Culture - RECD URINE Recent Impressions: CAT SCAN - CT ABD PELVIS W/O CONT 06/08 1255 Report Impression - Status: SIGNED Entered: 06/08/2018 1319 IMPRESSION: No acute intra-abdominal or intrapelvic pathology. Impression By: [email or web address] - Reilly Khan M.D. Re-Evaluation MDM Free Text MDM Notes Free Text MDM Notes Abd pain. Tender. No black/blood in stools. Vitals noted. CT unremarkable. Suspect gastritis. Low susp for acute OR. UA suggesetive of UTI. Patient Discharge Departure Vital Signs/Condition Vital Signs First Documented: Result Date Time Pulse Ox 99 06/08 1200 B/P 131/74 06/08 1200 B/P Mean 93 06/08 1200 Temp 36.4 06/08 1200 Pulse 79 06/08 1200 Resp 18 06/08 1200 O2 Delivery Room air 06/08 1338 Last Documented: Result Date Time Pulse Ox 99 06/08 1338 B/P 110/80 06/08 1338 B/P Mean 90 06/08 1338 O2 Delivery Room air 06/08 1338 Pulse 80 06/08 1338 Resp 18 06/08 1338 Temp 36.4 06/08 1200 All vital signs available at the time of this entry have been reviewed. Clinical Impression Clinical Impression Primary Impression: Urinary tract infection Secondary Impressions: Abdominal pain Disposition Decision Discharge )( Discharged to Home Yes )( Time 1320 )( Date 06/08/18 Discharge/Care Plan Discharge Note I have spoken with the patient and/or caregivers. I have explained the patient's condition, diagnoses and treatment plan based on the information available to me at this time. I have answered the patient's and/or caregiver's questions and addressed any concerns. The patient and/or caregivers have as good an understanding of the patient's diagnosis, condition and treatment plan as can be expected at this point. The vital signs have been stable. The patient's condition is stable and appropriate for discharge from the emergency department. The patient will pursue further outpatient evaluation with the primary care physician or other designated or consulting physician as outlined in the discharge instructions. The patient and/or caregivers are agreeable to this plan of care and follow-up instructions have been explained in detail. The patient and/or caregivers have received these instructions in written format and have expressed an understanding of the discharge instructions. The patient and/or caregivers are aware that any significant change in condition or worsening of symptoms should prompt an immediate return to this or the closest emergency department or a call to 911. at 0918 RPT #:[id number] END OF REPORT [facility]
[2024-09-03] MEDS ORDERED: KETOROLAC 30 MG/ML INJ ONE (10:22)
[2024-09-03] MEDS ORDERED: NA CHLORIDE 0.9% 1,000 ML ONE (10:22)
[2024-09-03 10:26] LABS: Absolute Basophils 0.1 K/uL (0-0.5); Absolute Eosinophils 0.1 K/uL (0-0.5); Absolute Lymphocytes (CBC) 2.5 K/uL (0.7-4.9); Absolute Monocytes 0.7 K/uL (0.1-1.3); Absolute Neutrophil 4.5 K/uL (1.8-8.0); Basophils % 0.9 % (0-1.3); Eosinophils % 0.8 % (0-4.4); Hematocrit 34.2 % (36.0-45.0); Hemoglobin 11.7 g/dL (12.0-15.0); Lymphocytes % 31.8 % (15.3-44.8); MCH 29.7 pg (27.0-35.0); MCHC 34.4 g/dL (32.0-36.0); MCV 86.5 fL (80-100); Monocytes % 9.6 % (3.3-12.3); Neutrophils % 56.9 % (41.7-73.7); Nucleated Red Blood Cells % 0.2 % (0-0); Platelets 203 thou/uL (152-406); RBC Red Blood Cell Count 3.95 M/uL (3.86-4.86)
--- NOTE | 2024-09-03 10:37 | RAD REPORT ---
EXAM: Chest Pa And Lat (2 Views) HISTORY: 69 years Female COUGH COMPARISON: 10/19/2020 FINDINGS: LUNGS/PLEURA: The lungs are clear. No pleural effusions or pneumothorax. No pulmonary edema. CARDIAC/MEDIASTINUM: The cardiac silhouette is within normal limits. UPPER ABDOMEN: No significant abnormality. BONES: No acute abnormality. ACDF in the cervical spine. LINES/TUBES/OTHER: N/A IMPRESSION: No evidence of acute cardiopulmonary disease. No significant change from prior.
[2024-09-03 10:47] LABS: Albumin 3.5 g/dL (3.4-5.0); Albumin/Globulin Ratio 0.9 (1.1-1.8); Anion Gap 10.2 mEq/L (5.0-15.0); Bilirubin Total 0.4 mg/dL (0.2-1.0); Globulin 3.8 g/dL (2.3-3.5); Protein, Total 7.3 g/dL (6.4-8.2)
[2024-09-03 10:49] LABS: Potassium 4.2 mEq/L (3.5-5.1)
--- NOTE | 2024-09-03 11:13 | RAD REPORT ---
Extremity Venous Uni Ltd CLINICAL INDICATION: Female, 69 years old.PAIN TECHNIQUE: Complete duplex sonography of the lower extremity veins was performed of the affected limb . The examination included compression for vein patency, color Doppler imaging and flow augmentation in response to distal compression of the distal external iliac, common femoral, femoral, popliteal, peroneal, tibial and great saphenous veins. [id number]. COMPARISON: No prior exams FINDINGS: Duplex sonography imaging demonstrates all deep veins examined to be fully compressible with spontane ous, phasic and augmented flow in the affected limb. IMPRESSION: No evidence of deep venous thrombosis in the left lower extremity.
--- NOTE | 2024-09-03 11:20 | ER ---
Nurse's Notes [facility] Name: Kelsi Emerson Age: 69 yrs Sex: Female : 1955 Arrival Date: 09/03/2024 Time: 09:51 Bed 2 Private MD: Diagnosis: Myalgia;Pain in left leg;Anemia, unspecified Presentation: 09/03 10:25 Chief complaint: Patient states: Discomfort all over due to "bronchitis X 1 week." Pt ld1 reports having pain to back of left knee/thigh. Coronavirus screen: At this time, the client does not indicate any symptoms associated with coronavirus-19. Ebola Screen: No symptoms or risks identified at this time. Initial Sepsis Screen: Does the patient meet any 2 criteria? No. Patient's initial sepsis screen is negative. Does the patient have a suspected source of infection? No. Patient's initial sepsis screen is negative. Risk Assessment: Do you want to hurt yourself or someone else? Patient reports no desire to harm self or others. Onset of symptoms was September 03, 2024. 10:25 Method Of Arrival: Ambulatory ld1 10:25 Acuity: MINISTERIO 3 ld1 Triage Assessment: 10:25 General: Appears in no apparent distress. comfortable, Behavior is calm, cooperative, ld1 appropriate for age. Pain: Complains of pain in left leg Pain does not radiate. Pain currently is 7 out of 10 on a pain scale. Quality of pain is described as throbbing, Pain began suddenly, Is continuous. EENT: No signs and/or symptoms were reported regarding the EENT system. Neuro: Level of Consciousness is awake, alert, obeys commands, Oriented to person, place, time, situation. Cardiovascular: Capillary refill < 3 seconds Patient's skin is warm and dry. Respiratory: Airway is patent Respiratory effort is even, unlabored. GI: Abdomen is flat, non-distended. : No signs and/or symptoms were reported regarding the genitourinary system. Derm: No signs and/or symptoms reported regarding the dermatologic system. Musculoskeletal: No signs and/or symptoms reported regarding the musculoskeletal system. Historical: - Allergies: 10:38 No Known Allergies; ld1 - PMHx: 10:38 Hypothyroidism; insomnia; neuropathy; ld1 - PSHx: 10:38 back surgery X 4; ld1 - Immunization history:: Adult Immunizations up to date. - Infectious Disease History:: Denies. - Social history:: Smoking status: Patient denies any tobacco usage or history of. Screenin:31 [facility] ED Fall Risk Assessment (Adult) History of falling in the last 3 months, ld1 including since admission No falls in past 3 months (0 pts) Confusion or Disorientation No (0 pts) Intoxicated or Sedated No (0 pts) Impaired Gait No (0 pts) Mobility Assist Device Used No (0 pt) Altered Elimination No (0 pt) Score/Fall Risk Level 0 - 2 = Low Risk Oriented to surroundings, Hourly rounding (assess needs \\T\\ fall precautionary measures) done. Abuse screen: Denies threats or abuse. Denies injuries from another. Nutritional screening: No deficits noted. Tuberculosis screening: No symptoms or risk factors identified. Assessment: 10:31 Reassessment: See triage assessment. ld1 11:33 Reassessment: Patient appears in no apparent distress at this time. No changes from ld1 previously documented assessment. Patient and/or family updated on plan of care and expected duration. Pain level reassessed. Patient is alert, oriented x 3, equal unlabored respirations, skin warm/dry/pink. Vital Signs: 10:25 BP 136 / 88; Pulse 82; Resp 18; Temp 97.8(TE); Pulse Ox 100% on R/A; Height 5 ft. 2 in. ld1 ; Pain 7/10; 11:33 BP 129 / 76; Pulse 81; Resp 18; Pulse Ox 100% on R/A; ld1 10:25 Pain Scale: Adult ld1 ED Course: 09:55 Patient arrived in ED. im 09:55 Nick Connolly DO is Attending Physician. ms3 10:12 Matt Pittman, RN is Primary Nurse. bp 10:19 Initial lab(s) drawn, by mn, sent to lab. Inserted saline lock: 22 gauge in right bp forearm, using aseptic technique. Blood collected. Flushed with 10 mL NS. 10:25 Arm band placed on right wrist. ld1 10:26 Triage completed. ld1 10:31 No provider procedures requiring assistance completed. ld1 10:31 Patient has correct armband on for positive identification. Placed in gown. Bed in low ld1 position. Call light in reach. Side rails up X2. Pulse ox on. NIBP on. Door closed. Noise minimized. Warm blanket given. 10:35 Chest Pa And Lat (2 Views) XRAY In Process Unspecified. EDMS 11:09 US Extremity Venous Unilateral Ltd In Process Unspecified. EDMS 11:34 IV discontinued, intact, bleeding controlled, No redness/swelling at site. ld1 Administered Medications: 10:26 Drug: NS 0.9% IV 1000 ml IV at 1 bolus Per protocol; to be given as a bolus over 60 bp minutes Route: IV; Rate: 1 bolus; Site: right forearm; :26 Drug: Ketorolac IVP 10 mg 10 mg IVP once Route: IVP; Site: right forearm; bp Medication: 10:31 VIS not applicable for this client. ld1 Outcome: 11:20 Discharge ordered by . ms3 11:34 Discharged to home ambulatory, ld1 11:34 Condition: stable 11:34 Discharge instructions given to patient, Instructed on discharge instructions, follow up and referral plans. Demonstrated understanding of instructions, follow-up care, 11:34 Patient left the ED. ld1 Signatures: Dispatcher [employer] EDMS Matt Pittman, RN RN bp Nick Connolly DO DO ms3 Cheyanne Connolly RN RN ld1 Jaylin Chowdary im
--- NOTE | 2024-09-03 11:21 | EDPHYS ---
Physician Documentation [facility] Name: Kelsi Emerson Age: 69 yrs Sex: Female : 1955 Arrival Date: 09/03/2024 Time: 09:51 Bed 2 Private MD: ED Physician Nick Connolly HPI: 09/03 11:21 This 69 yrs old Female presents to ER via Ambulatory with complaints of Pain ms3 All Over. 11:21 69-year-old female presents to the emergency department for myalgias. Patient states ms3 she saw her primary care physician last week and was diagnosed with bronchitis. Patient states her discomfort a 10/10. Patient endorses chills and cough. She denies fever, nausea, vomiting. . Historical: - Allergies: 10:38 No Known Allergies; ld1 - PMHx: 10:38 Hypothyroidism; insomnia; neuropathy; ld1 - PSHx: 10:38 back surgery X 4; ld1 - Immunization history:: Adult Immunizations up to date. - Infectious Disease History:: Denies. - Social history:: Smoking status: Patient denies any tobacco usage or history of. ROS: 11:21 Cardiovascular: Negative for chest pain, and palpitations. Respiratory: Negative for ms3 shortness of breath, cough, wheezing, and pleuritic chest pain, Abdomen/GI: Negative for abdominal pain, nausea, vomiting, diarrhea, and constipation, Skin: Negative for injury, rash, and discoloration, 11:21 Constitutional: Positive for body aches, chills, Exam: 11:21 Constitutional: This is a well developed, well nourished patient who is awake, alert, ms3 and in no acute distress. Cardiovascular: Regular rate and rhythm with a normal S1 and S2. No gallops, murmurs, or rubs. Normal PMI, no JVD. No pulse deficits. Respiratory: Lungs have equal breath sounds bilaterally, clear to auscultation and percussion. No rales, rhonchi or wheezes noted. No increased work of breathing, no retractions or nasal flaring. Abdomen/GI: Soft, non-tender, with normal bowel sounds. No distension or tympany. No guarding or rebound. No evidence of tenderness throughout. Skin: Warm, dry with normal turgor. Normal color with no rashes, no lesions, and no evidence of cellulitis. MS/ Extremity: Pulses equal, no cyanosis. Neurovascular intact. Full, normal range of motion. Vital Signs: 10:25 BP 136 / 88; Pulse 82; Resp 18; Temp 97.8(TE); Pulse Ox 100% on R/A; Height 5 ft. 2 in. ld1 ; Pain 7/10; 11:33 BP 129 / 76; Pulse 81; Resp 18; Pulse Ox 100% on R/A; ld1 10:25 Pain Scale: Adult ld1 MDM: 10:01 Medical Screening Exam initiated ms3 11:21 Differential Diagnosis Left lower extremity DVT versus rhabdomyolysis versus viral ms3 illness versus electrolyte abnormality. Data reviewed: vital signs, nurses notes, lab test result(s), radiologic studies, and as a result, I will discharge patient. I considered the following discharge prescriptions or medication management in the emergency department Medications were administered in the Emergency Department. See MAR. Counseling: I had a detailed discussion with the patient and/or guardian regarding the historical points, exam findings, and any diagnostic results supporting the discharge/admit diagnosis, lab results, radiology results, the need for outpatient follow up, to return to the emergency department if symptoms worsen or persist or if there are any questions or concerns that arise at home. ED course: Discussed labs, imaging with patient. Patient understands agrees with plan. All questions were answered. Return precautions discussed include worsening symptoms, or any other concerns. On reevaluation patient is improved, alert and oriented x 4, no apparent distress, nontoxic-appearing, speaking full sentences.. 09/03 10:08 Order name: CBC with Diff; Complete Time: 11:3 09/03 10:08 Order name: CMP; Complete Time: 11: ms3 09/03 10:08 Order name: CK; Complete Time: 11: ms3 09/03 10:08 Order name: Chest Pa And Lat (2 Views) XRAY; Complete Time: 11:3 09/03 10:39 Order name: US Extremity Venous Unilateral Ltd; Complete Time: 11:16 ms3 Administered Medications: :26 Drug: NS 0.9% IV 1000 ml IV at 1 bolus Per protocol; to be given as a bolus over 60 bp minutes Route: IV; Rate: 1 bolus; Site: right forearm; :26 Drug: Ketorolac IVP 10 mg 10 mg IVP once Route: IVP; Site: right forearm; bp Disposition Summary: 09/03/24 11:20 Discharge Ordered Notes: Location: Home ms3 Condition: Stable ms3 Diagnosis - Myalgia ms3 - Pain in left leg ms3 - Anemia, unspecified ms3 Followup: ms3 - With: Private Physician - When: 2 - 3 days - Reason: Recheck today's complaints Discharge Instructions: - Discharge Summary Sheet ms3 - Anemia ms3 - Musculoskeletal Pain ms3 Forms: - Medication Reconciliation Form ms3 - Antibiotic Education ms3 - Prescription Opioid Use ms3 - Patient Portal Instructions ms3 - Leadership Thank You Letter ms3 Signatures: Dispatcher [employer] EDMS Matt Pittman, RN RN Nick Huerta DO DO ms3 Cheyanne Connolly RN RN ld1 Corrections: (The following items were deleted from the chart) 10:09 10:09 Chest Pa And Lat (2 Views)+RAD.RAD.BRZ ordered. EDMS EDMS 10:09 10:09 CREATINE PHOSPHOKINASE+C.LAB.BRZ ordered. EDMS EDMS 10:40 10:40 Extremity Venous Uni Ltd+US.RAD.BRZ ordered. EDMS EDMS
[2024-09-03 11:53] VITALS: TEMP 97.8; O2SAT 100
[2024-09-03 11:58] VITALS: BP 129/76
== END 2024-09-03 11:34 | disposition home or self-care (01) ==
LOC: ER 09:51
DX: M79.10 Myalgia, unspecified site (principal); M79.605 Pain in left leg; D64.9 Anemia, unspecified; R68.83 Chills (without fever)
CPT/HCPCS: 85025; 36415; 82550; 80053; 71046; 93971; 96374; 99284; J7030